=== PATIENT | male | born 1945 | race Caucasian/White ===

== ENCOUNTER 2016-07-21 09:44 | Inpatient (IN) | payer MEDICARE ==
[~2016-07-21] VITALS: Ht 182.9 cm; Wt 70.5 kg
[2016-07-21 09:51] VITALS: BP 148/98; PULSE 104; RESP 20; TEMP 97.8; O2SAT 98
[2016-07-21] MEDS ORDERED: SODIUM CHLOR 0.9% 1000 ML INJ 1,000 ML IV ONE (10:15)
[2016-07-21 10:22] LABS: AUTOMATED NEUTROPHIL # 7.5 TH/MM3 (1.8-7.7); BASOPHIL % 0.5 % (0.0-2.0); EOSINOPHIL % 0.3 % (0.0-4.0); HEMATOCRIT 42.4 % (39.0-51.0); HEMO FLAGS DIFF FINAL; LYMPH % 13.7 % (9.0-44.0); LYMPHOCYTE # 1.3 TH/MM3 (1.0-4.8); MEAN CELL VOLUME 87.5 FL (80.0-100.0); MEAN CORPUSCULAR HEMOGLOBIN 28.9 PG (27.0-34.0); MONO % 5.8 % (0.0-8.0); NEUT % 79.7 % (16.0-70.0); PLATELET COUNT 339 TH/MM3 (150-450); RED BLOOD COUNT 4.85 MIL/MM3 (4.50-5.90); RED CELL DISTRIBUTION WIDTH 14.2 % (11.6-17.2); WHITE BLOOD COUNT 9.4 TH/MM3 (4.0-11.0)
--- NOTE | 2016-07-21 10:22 | PD ---
HPI Chief Complaint: Respiratory Distress Time Seen by Provider: 10:02 Travel History International Travel<30 days: No Contact w/Intl Traveler<30days: No Traveled to known affect area: No History of Present Illness HPI 71-year-old man, history of active IV drug use with IV methamphetamine, presents to the emergency department complaining of shortness of breath for the past 5 days, intermittent stabbing chest pain, as well as feeling poorly. States he feels exhausted, sleeping all the time. Denies any fevers but states he has had chills as well as night sweats. Patient has a history of high blood pressure, antiphospholipid antibody syndrome, diabetes. He had a normal treadmill stress test July of this past year. He was admitted for bacteremia and chest pain in May 2015 found to be related to infected hardware in his back which was removed. No history of endocarditis that he knows of. He does have multiple small wounds in his skin that have been draining. This is a common problem for him. History Past Medical History Narrative Medical Hypertension Diabetes, patient states resolved after weight loss however his A1c was 9.May Antiphospholipid antibody syndrome Polysubstance abuse, active IV drug use Tetanus Vaccination: < 5 Years PNEUMOCCOCAL Vaccine (Year): 2007 Social History Alcohol Use: Yes (NOT OFTEN) Tobacco Use: No Allergies-Medications (Allergen,Severity, Reaction): Coded Allergies: Morphine (Verified Allergy, Severe, Itching, 07/21/16) Reported Meds & Prescriptions Reported Meds & Active Scripts Active No Active Prescriptions or Reported Medications Review of Systems Except as stated in HPI: all other systems reviewed are Neg Physical Exam Narrative GENERAL: 71 year-old man, generally well-appearing. No acute distress. SKIN: Warm and dry. Possibly little bit pale. Scattered areas of abscess and drainage, including the left wrist which is draining, and the right forearm which is not. HEAD: Atraumatic. Normocephalic. EYES: Pupils equal and round. No scleral icterus. No injection or drainage. ENT: No nasal bleeding or discharge. Mucous membranes pink and moist. NECK: Trachea midline. No JVD. CARDIOVASCULAR: Regular rate and rhythm. No hearing murmur. RESPIRATORY: No accessory muscle use. Clear to auscultation. Breath sounds equal bilaterally. GASTROINTESTINAL: Abdomen soft, non-tender, nondistended. Hepatic and splenic margins not palpable. MUSCULOSKELETAL: No obvious deformities. No edema. NEUROLOGICAL: Awake and alert. No obvious cranial nerve deficits. Motor grossly within normal limits. Normal speech. PSYCHIATRIC: Appropriate mood and affect; insight and judgment normal. Data Data Last Documented VS Vital Signs Date Time Temp Pulse Resp B/P Pulse Ox O2 Delivery O2 Flow Rate FiO2 07/21/16 10:26 98 07/21/16 10:26 Room Air 07/21/16 09:51 97.8 104 20 148/98 Orders Electrocardiogram (07/21/16 10:02) Complete Blood Count With Diff (07/21/16 10:02) Comprehensive Metabolic Panel (07/21/16 10:02) Prothrombin Time / Inr (Pt) (07/21/16 10:02) Act Partial Throm Time (Ptt) (07/21/16 10:02) Lactic Acid Sepsis Protocol (07/21/16 10:02) Magnesium (Mg) (07/21/16 10:02) Lipase (07/21/16 10:02) Troponin I (07/21/16 10:02) Urinalysis - C+S If Indicated (07/21/16 10:02) Blood Culture (07/21/16 10:02) Chest, Single Ap (07/21/16 10:02) Blood Glucose (07/21/16 10:02) Ecg Monitoring (07/21/16 10:02) Iv Access Insert/Monitor (07/21/16 10:02) Oximetry (07/21/16 10:02) Oxygen Administration (07/21/16 10:02) Sodium Chlor 0.9% 1000 Ml Inj (Ns 1000 M (07/21/16 10:15) Westergren Sedimentation Rate (07/21/16 10:19) C-Reactive Protein (Crp) (07/21/16 10:19) Ct Pulmonary Angiogram (07/21/16 ) Iohexol 350 Inj (Omnipaque 350 Inj) (07/21/16 11:10) Admit Order (Ed Use Only) (07/21/16 ) Labs Laboratory Tests Test 07/21/16 07/21/16 10:10 10:35 White Blood Count 9.4 TH/MM3 Red Blood Count 4.85 MIL/MM3 Hemoglobin 14.0 GM/DL Hematocrit 42.4 % Mean Corpuscular Volume 87.5 FL Mean Corpuscular Hemoglobin 28.9 PG Mean Corpuscular Hemoglobin 33.0 % Concent Red Cell Distribution Width 14.2 % Platelet Count 339 TH/MM3 Mean Platelet Volume 8.4 FL Neutrophils (%) (Auto) 79.7 % Lymphocytes (%) (Auto) 13.7 % Monocytes (%) (Auto) 5.8 % Eosinophils (%) (Auto) 0.3 % Basophils (%) (Auto) 0.5 % Neutrophils # (Auto) 7.5 TH/MM3 Lymphocytes # (Auto) 1.3 TH/MM3 Monocytes # (Auto) 0.5 TH/MM3 Eosinophils # (Auto) 0.0 TH/MM3 Basophils # (Auto) 0.0 TH/MM3 CBC Comment DIFF FINAL Differential Comment Erythrocyte Sedimentation Rate 6 mm/hr Sodium Level 135 MEQ/L Potassium Level 4.7 MEQ/L Chloride Level 99 MEQ/L Carbon Dioxide Level 26.9 MEQ/L Anion Gap 9 MEQ/L Blood Urea Nitrogen 18 MG/DL Creatinine 1.11 MG/DL Estimat Glomerular Filtration 66 ML/MIN Rate Random Glucose 200 MG/DL Lactic Acid Level 2.4 mmol/L Calcium Level 8.8 MG/DL Magnesium Level 1.7 MG/DL Total Bilirubin 0.9 MG/DL Aspartate Amino Transf 203 U/L (AST/SGOT) Alanine Aminotransferase 136 U/L (ALT/SGPT) Alkaline Phosphatase 192 U/L Troponin I 0.21 NG/ML C-Reactive Protein 2.60 MG/DL Total Protein 6.7 GM/DL Albumin 3.1 GM/DL Lipase 94 U/L Prothrombin Time 15.4 SEC Prothromb Time International 1.4 RATIO Ratio Activated Partial 29.5 SEC Thromboplast Time MDM Medical Decision Making Medical Screen Exam Complete: Yes Emergency Medical Condition: Yes Interpretation(s) My review of EKG: Sinus tachycardia rate of 102, left axis deviation, large voltage in the precordial leads anteriorly, T-wave flattening in the lateral leads, no definite evidence of acute ischemia. LABS: CBC unremarkable Sedimentation rate 6 CMP remarkable for elevated AST ALT alkaline phosphatase Troponin 0.21 Lactate 2.4 CRP 2.6 Lipase unremarkable Chest x-ray: Some focal interstitial markings in the right lower lung. A confluent infiltrate. CT pulmonary angiogram: Negative for PE Differential Diagnosis Endocarditis, ACS, PE, dissection, other Narrative Course Medical decision making INITIAL: 71 year-old man, multiple medical problems, active IV drug use and methamphetamine, presents with chest pain and shortness of breath. Wide differential diagnosis. Some night sweats that could suggest occult infection. Culture sent, inflammatory markers sent. Recent negative exercise stress test in the past year. High risk for CAD, dissection. We'll put a history of antiphospholipid antibody syndrome that could predispose to PE. We'll start with labs x-rays cultures IV fluids and reassess. Possible CT for pulmonary angiogram. Likely admission. Procedures Procedure Narrative Peripheral IV: Nursing staff was unable to establish peripheral IV. 20-gauge left EJ was placed by myself at the bedside. Patient tolerated well. Diagnosis Primary Impression: Atypical chest pain Admitting Information Admitting Physician Requests: Admit Scripts No Active Prescriptions or Reported Meds Anthony Cardozo MD Jul 21, 2016 10:22
[2016-07-21 10:26] VITALS: O2SAT 98
[2016-07-21 10:39] LABS: ALT (GPT) 136 U/L (12-78); ANION GAP 9 MEQ/L (5-15); AST (GOT) 203 U/L (15-37); BICARBONATE 26.9 MEQ/L (21.0-32.0); CHLORIDE 99 MEQ/L (98-107); GLOMERULAR FILTRATION RATE 66 ML/MIN (>89); MAGNESIUM 1.7 MG/DL (1.5-2.5); POTASSIUM 4.7 MEQ/L (3.5-5.1); SODIUM (NA) 135 MEQ/L (136-145)
[2016-07-21 10:43] LABS: ALKALINE PHOSPHATASE 192 U/L (45-117); BLOOD UREA NITROGEN 18 MG/DL (7-18); TOTAL BILIRUBIN ADULT 0.9 MG/DL (0.2-1.0)
--- NOTE | 2016-07-21 10:43 | RADRPT ---
EXAM DATE/TIME: 07/21/2016 10:01 [facility] COMPARISON: CHEST SINGLE AP, July 28, 2015, 15:32. INDICATIONS : Short of breath. MEDICAL HISTORY : None. SURGICAL HISTORY : None. ENCOUNTER: Initial ACUITY: 1 day PAIN SCORE: 0/10 LOCATION: Bilateral chest FINDINGS: A single view of the chest demonstrates blunting of the costophrenic angles bilaterally, right worse than left. There is slight increased interstitial markings in the right lower lung field suggesting s ome degree of vascular congestion or volume overload. Heart size is borderline. There is a dextroscol iosis of the thoracolumbar spine with associated degenerative changes. Osseous structures are otherwi se intact. CONCLUSION: 1. Blunting of both costophrenic angles, right greater than left suggesting some degree of effusion. 2. In addition, there is some focal increased interstitial markings in the right lower lung field sug gesting some asymmetric vascular congestion or volume overload. No confluent infiltrate. 3. Dextroscoliosis of the thoracolumbar spine with associated degenerative changes Nikos Kaur MD Board Certified Radiologist. This report was verified electronically.
[2016-07-21 10:55] LABS: APTT (PATIENT) 29.5 SEC (24.3-30.1); INTERNATIONAL NORMALIZED RATIO 1.4 RATIO; PROTHROMBIN TIME - PATIENT 15.4 SEC (9.8-11.6)
[2016-07-21] MEDS ORDERED: IOHEXOL 350 MG/ML 10 ML VIAL (for RAD DIAG) IV ONE (11:10)
--- NOTE | 2016-07-21 11:23 | RADRPT ---
EXAM DATE/TIME: 07/21/2016 11:06 [facility] COMPARISON: No previous studies available for comparison. INDICATIONS : Short of breath x 5 days. IV CONTRAST: 75 cc Omnipaque 350 (iohexol) IV RADIATION DOSE: 23.26 CTDIvol (mGy) MEDICAL HISTORY : Cerebrovascular disease. Hypertension. SURGICAL HISTORY : Appendectomy. Cholecystectomy. ENCOUNTER: Initial ACUITY: 4 - 6 days PAIN SCALE: 4/10 LOCATION: Bilateral chest TECHNIQUE: Volumetric scanning of the chest was performed using a pulmonary embolism protocol MIP images were re constructed. Using automated exposure control and adjustment of the mA and/or kV according to patien t size, radiation dose was kept as low as reasonably achievable to obtain optimal diagnostic quality images. FINDINGS: Examination of the pulmonary vasculature demonstrates good filling of the main, lobar and segmental b ranches. There are no filling defects to suggest pulmonary embolism. Multiplanar reconstructions are also unremarkable. Moderate size bilateral pleural effusions are present left greater than right. There is subsegmental atelectasis in the left base. No pulmonary nodules are identified. Examination of the mediastinum demonstrates no abnormally enlarged lymph nodes by CT criteria. No axi llary or hilar abnormalities are identified. Coronary artery calcifications are present. The visualiz ed upper abdomen demonstrates no abnormality. CONCLUSION: 1. No evidence of pulmonary embolism. 2. Bilateral effusions and left basilar atelectasis Amos Toledo MD on July 21, 2016 at 11:18 Board Certified Radiologist. This report was verified electronically.
--- NOTE | 2016-07-21 11:48 | HHI.HP ---
HPI Service Family Medicine Primary Care Physician No Primary Care Physician Admission Diagnosis chest pain, rule out ACS, rule out endocarditis Diagnoses: International Travel<30 Days: No Contact w/Intl Traveler<30days: No Known Affected Area: No History of Present Illness Pt is a 71-year-old male with a PMH significant for IV drug use. He also reports a history of HLD, HTN, DM that has completely resolved since he loss 100 pounds and has been doing IV drugs. Presented today because of gradually worsening SOB 1 week. The shortness of breath is associated with chest pain that is epigastric and last from seconds to minutes. Both SOB and chest pain occur with exertion but also occurs when at rest. No specific alleviating factors. Chest pain is localized and does not radiate to neck or arm. Described as a stabbing pain. Also endorses fatigue, malaise, decreased appetite, night sweats. Denies a change in weight. Episodes of shortness of breath and chest pain are associated with diaphoresis and nausea but with no vomiting. He has also been having a cough for the last week that is nonproductive and without blood. Denies abdominal pain, dysuria, fevers, worsening back pain. Denies sick contacts or new foods. Does endorse right forearm and left wrist erythema that has improved with draining. Review of Systems Constitutional: COMPLAINS OF: Diaphoretic episodes, Fatigue, Chills, Night Sweats, DENIES: Fever, Weight loss, Change in appetite Eyes: DENIES: Eye inflammation, Vision loss Ears, nose, mouth, throat: DENIES: Running Nose Respiratory: COMPLAINS OF: Cough, Shortness of breath, DENIES: Hemoptysis, Sputum production Cardiovascular: COMPLAINS OF: Chest pain, DENIES: Palpitations, Lower Extremity Edema Gastrointestinal: COMPLAINS OF: Nausea, DENIES: Abdominal pain, Vomiting Genitourinary: DENIES: Dysuria Musculoskeletal: COMPLAINS OF: Back pain Integumentary: COMPLAINS OF: Rash Neurologic: DENIES: Localized weakness, Tremor Past Family Social History Past Medical History IV drug abuse Bacteremia secondary to abscess of the spine. hypertension-resolved after wt loss Hyperlipidemia-resolved after wt loss Diabetes-resolved after wt loss Antiphospholipid antibody syndrome-use to be on warfarin, stopped 6-7yrs TIA Collapsed lung Past Surgical History 1. Patient had hardware removed from his back in May 2015 secondary to infection. 2. Appendectomy. 3. Cholecystectomy 4. Numerous back surgeries Reported Medications Reported Meds & Active Scripts Active No Active Prescriptions or Reported Medications Allergies: Coded Allergies: Morphine (Verified Allergy, Severe, Itching, 07/21/16) Family History Father: , [place] Mother: CHF Social History [facility] alone [facility] Tobacco: quit 30yrs ago Alcohol: quit >20yrs ago Illicit: IV drug use of methamphetamines, cocaine, Dilaudid. Marijuana Physical Exam Vital Signs Vital Signs Date Time Temp Pulse Resp B/P Pulse Ox O2 Delivery O2 Flow Rate FiO2 07/21/16 10:26 98 07/21/16 10:26 98 Room Air 07/21/16 09:51 97.8 104 20 148/98 98 Physical Exam GENERAL: This is a thin male, in no apparent distress. SKIN: 2 erythematous papules. One on the left wrist and the other on the right upper forearm. Without drainage. Nontender with slight induration. EYES: Pupils equal round and reactive. Extraocular motions intact. No scleral icterus. No injection or drainage. ENT: Nose without bleeding, purulent drainage. Throat without erythema, tonsillar hypertrophy or exudate. Uvula midline. Airway patent. NECK:No lymphadenopathy. CARDIOVASCULAR: Regular rate and rhythm without murmurs, gallops, or rubs. RESPIRATORY: Good air movement bilaterally. Coarse breath sounds bilaterally but without obvious wheezes. GASTROINTESTINAL: Abdomen soft, non-tender, nondistended. No hepato-splenomegaly , or palpable masses. No guarding. MUSCULOSKELETAL: Extremities without clubbing, cyanosis, or edema. No calf tenderness. NEUROLOGICAL: Awake and alert. Motor and sensory grossly within normal limits. Normal speech. Laboratory Laboratory Tests Test 07/21/16 07/21/16 10:10 10:35 White Blood Count 9.4 Red Blood Count 4.85 Hemoglobin 14.0 Hematocrit 42.4 Mean Corpuscular Volume 87.5 Mean Corpuscular Hemoglobin 28.9 Mean Corpuscular Hemoglobin 33.0 Concent Red Cell Distribution Width 14.2 Platelet Count 339 Mean Platelet Volume 8.4 Neutrophils (%) (Auto) 79.7 Lymphocytes (%) (Auto) 13.7 Monocytes (%) (Auto) 5.8 Eosinophils (%) (Auto) 0.3 Basophils (%) (Auto) 0.5 Neutrophils # (Auto) 7.5 Lymphocytes # (Auto) 1.3 Monocytes # (Auto) 0.5 Eosinophils # (Auto) 0.0 Basophils # (Auto) 0.0 CBC Comment DIFF FINAL Differential Comment Erythrocyte Sedimentation Rate 6 Sodium Level 135 Potassium Level 4.7 Chloride Level 99 Carbon Dioxide Level 26.9 Anion Gap 9 Blood Urea Nitrogen 18 Creatinine 1.11 Estimat Glomerular Filtration 66 Rate Random Glucose 200 Lactic Acid Level 2.4 Calcium Level 8.8 Magnesium Level 1.7 Total Bilirubin 0.9 Aspartate Amino Transf 203 (AST/SGOT) Alanine Aminotransferase 136 (ALT/SGPT) Alkaline Phosphatase 192 Troponin I 0.21 C-Reactive Protein 2.60 Total Protein 6.7 Albumin 3.1 Lipase 94 Prothrombin Time 15.4 Prothromb Time International 1.4 Ratio Activated Partial 29.5 Thromboplast Time Date/Time Procedure Status Source Growth 07/21/16 10:25 Aerobic Blood Culture Received Blood Peripheral Pending 07/21/16 10:25 Anaerobic Blood Culture Received Blood Peripheral Pending Result Diagram: 07/21/16 1010 07/21/16 1010 Assessment and Plan Assessment and Plan 71yo male with PMH significant for IV drug use. Admitted for generalized malaise and endocarditis evaluation. Code Status full Discussed Condition With dw Dr. Loaiza and Dr. Cameron Problem List: (1) Chest pain Status: Acute Plan: Progressive worsening of chest pain or shortness of breath over the last week. Chest pain localized in his epigastrium. No specific triggers or alleviating factors. Etiology unclear but low suspicion for myocardial. May be due to CHF, diastolic dysfunction vs occult infection -Pt remains tachycardic and lactic acid elevated at 2.4 -ACS evaluation negative -Echo from 09/18: EF of 55-60% -BNP elevated at 1916 -cardiac telemetry ordered Imaging: * CXR: Blunting of both costophrenic angles with some degree of effusion. Some focal increased interstitial markings the right lower lung suggesting some asymmetric basilar congestion or volume overload. No confluent infiltrate. * CTA: No evidence of PE. Bilateral effusions left basilar atelectasis. Medications: * Lasix 40 IV daily * KCL 20mg daily * aspirin 81mg daily (2) Malaise and fatigue Status: Acute Plan: Symptoms of malaise and fatigue can be due to a number of things as patient is homeless and does IV drugs. Etiologies include infectious vs diabetes vs CHF -Patient agreed to testing of hepatitis and HIV status, results pending -ESR negative at 6 -Newly elevated liver enzymes at 203/136 respectively (3) UTI (urinary tract infection) Status: Acute Plan: UA positive for nitrites and large leukocyte esterase. -Treat empirically with Rocephin (07/21- (4) DM (diabetes mellitus) Status: Acute Plan: Patient claims his diabetes has completely resolved with diet but this may not be the case as indicated by random glucose of 200. Patient requiring high levels of supplemental insulin. -Blood glucose ranging 200-300s -Consider adding long-acting insulin (5) Polysubstance abuse Status: Chronic Plan: Patient admits to marijuana, Dilaudid, cocaine, methamphetamine drug use. UDS positive for cocaine and methamphetamine -High risk for bacteremia and endocarditis however patient has no leukocytosis, elevated ESR, or fever. Suspicion for infection is low to moderate at this time. -Repeat echo canceled at this time. Will be ordered if suspicion for endocarditis increases. (6) Nutrition, metabolism, and development symptoms Status: Acute Plan: Diet: Diabetic Fluids: None Electrolytes: Moderate hyponatremia, continue to monitor DVT prophylaxis: Lovenox GI prophylaxis: Not indicated Problem Qualifiers (1) DM (diabetes mellitus): Qualified Code: E11.9 - Type 2 diabetes mellitus without complication, without long-term current use of insulin Kelsi Santiago MD R2 Jul 21, 2016 11:48
[2016-07-21 12:14] LABS: LACTIC ACID GHOST NOT REPORTABLE
[2016-07-21] MEDS ORDERED: GLUCAGON 1 MG/ML VIAL OTHER PRN (12:30)
[2016-07-21] MEDS ORDERED: ONDANSETRON HCL 4 MG/2 ML VIAL IVP PRN (12:30)
[2016-07-21] MEDS ORDERED: DEXTROSE 50% IN WATER 50 ML VIAL(D50) IV PUSH PRN (12:30)
[2016-07-21] MEDS ORDERED: NALOXONE HCL 0.4 MG/ML AMP IV PRN (12:30)
[2016-07-21] MEDS ORDERED: ENALAPRILAT 1.25 MG/ML VIAL IV PRN (12:30)
[2016-07-21 12:40] VITALS: O2SAT 98
[2016-07-21] MEDS ORDERED: SODIUM CHLOR 0.9% 1000 ML INJ 1,000 ML IV SCH (13:30)
[2016-07-21] MEDS: ENOXAPARIN SODIUM 40 MG/0.4 ML SYRINGE SQ SCH (13:34)
[2016-07-21 13:35] VITALS: BP 133/83; PULSE 108; RESP 16; O2SAT 97
[2016-07-21 13:46] LABS: BACTERIA, URINE MOD /hpf; BLOOD, URINE MOD (NEG); COMMENT (UR) CULTURE INDICATED; CULTURE IF INDICATED CULTURE INDICATED; GLUCOSE,URINE NEG (NEG); HYALINE CAST, URINE 21 /lpf (RARE); KETONE, URINE TRACE mg/dL (NEG); NITRITE,URINE POS (NEG); URINE COLOR YELLOW (YELLW/STRAW)
[2016-07-21 14:02] LABS: AMPHETAMINE, URINE POS (NEG); BARBITURATES, URINE NEG (NEG); COCAINE, URINE POS (NEG)
[2016-07-21] MEDS: INSULIN ASPART SUPPLEMENTAL SCALE SQ SCH ×2 (15:47→21:00)
[2016-07-21 16:00] VITALS: BP 138/92; PULSE 107; RESP 16; TEMP 97.5; O2SAT 94
[2016-07-21] MEDS ORDERED: cefTRIAXone INJ 1,000 MG in SODIUM CHLORIDE 0.9% INJ 100 ML IV SCH (16:00)
--- NOTE | 2016-07-21 19:18 | EKG ---
Date Performed: 07/21/2016 Time Performed: 10:05:50 PTAGE: 71 years EKG: SINUS TACHYCARDIA POSSIBLE LEFT ATRIAL ENLARGEMENT MARKED LEFT AXIS DEVIATION NONSPECIFIC T -WAVE ABNORMALITY ABNORMAL ECG PREVIOUS TRACING : 09/13/2015 19.47 DOCTOR: Juarez Ragland Interpretating Date/Time 07/21/2016 19:16:20
[2016-07-21 20:00] VITALS: BP 131/85; PULSE 120; RESP 20; TEMP 98.4; O2SAT 100
--- NOTE | 2016-07-21 20:33 | HHI.FPPN ---
Subjective Remarks Attending note: Pleasant 71-year-old gentleman admitted with one-week history of increasing shortness of breath and chest pain. Patient has a complex medical history and is notable for hypertension, hyperlipidemia and diabetes mellitus. Also, of note is the admitted history of IV drug use most recently methamphetamine and cocaine. Shortness of breath is variably described , associated with a dry cough at times, certainly exertional. Chest pain is variable, occasionally sharp, may last from seconds to minutes. Patient presented with an unremarkable EKG, troponins were minimally elevated. Previous history of a positive lupus anticoagulant, review of the hematology consultation suggest that his most at risk time was back in the when he had a series of strokes and was using drugs heavily. Also has history in May 2015 of having instrumentation removed from the lumbar spine which had become infected. Was on antibiotics for 3 months. Objective Vitals Vital Signs Date Time Temp Pulse Resp B/P Pulse Ox O2 Delivery O2 Flow Rate FiO2 07/21/16 16:00 97.5 107 16 138/92 94 07/21/16 13:35 108 16 133/83 97 Room Air 07/21/16 12:40 98 21 07/21/16 10:26 98 07/21/16 10:26 98 Room Air 07/21/16 09:51 97.8 104 20 148/98 98 Result Diagram: 07/21/16 1010 07/21/16 1010 Objective Remarks Vital signs noted. Afebrile. Gen. appearance gentleman, thin habitus, ambulatory independently, doesn' t conversation, direct eye contact. HEENT: Nonlocalizing. Lungs: Diminished clear breath sounds, possibly more diminished on the right base Cardiac: Tachycardia, no S3, soft systolic murmur left sternal border. Abdomen: Soft and benign, active bowel sounds, no organomegaly, no tenderness. Extremities: Warm and dry, intact pedal pulses, no ankle edema. Skin: Multiple areas on the forearm left greater than right of erythematous raised areas consistent with abscesses (patient admits that these could be from needle entries) A/P Assessment and Plan Clinical assessment: Patient was seen and examined. Case to be discussed and reviewed with the resident team. Agree with plan of care as discussed with me and documented in the resident note currently. Atypical chest pain Associated shortness of breath History of IV drug use Diabetes mellitus Hypertension Hyperlipidemia Positive lupus anticoagulant with history of multiple strokes in the Abnormal urinalysis with pyuria and hematuria Abnormal LFTs Neil Loaiza MD Jul 21, 2016 20:33
[2016-07-21] MEDS: SODIUM CHLORIDE 0.9% FLUSH 5 ML FLUSH FLUSH SCH (22:29)
[2016-07-22] VITALS (9 sets, daily range): BP systolic 126–150; BP diastolic 72–120; PULSE 85–113; RESP 18–24; TEMP 97.5–98.5; O2SAT 95–100
[2016-07-22] MEDS: INSULIN ASPART SUPPLEMENTAL SCALE SQ SCH ×4 (05:39→19:57)
[2016-07-22 06:10] LABS: AUTOMATED NEUTROPHIL # 6.6 TH/MM3 (1.8-7.7); BASOPHIL % 0.5 % (0.0-2.0); EOSINOPHIL # 0.1 TH/MM3 (0-0.4); EOSINOPHIL % 0.6 % (0.0-4.0); HEMATOCRIT 46.5 % (39.0-51.0); HEMO FLAGS DIFF FINAL; LYMPH % 19.8 % (9.0-44.0); LYMPHOCYTE # 1.8 TH/MM3 (1.0-4.8); MEAN CELL VOLUME 88.3 FL (80.0-100.0); MEAN CORPUSCULAR HEMOGLOBIN 28.5 PG (27.0-34.0); MEAN CORPUSCULAR HGB CONC 32.3 % (32.0-36.0); MONO % 7.1 % (0.0-8.0); PLATELET COUNT 373 TH/MM3 (150-450); RED BLOOD COUNT 5.27 MIL/MM3 (4.50-5.90); RED CELL DISTRIBUTION WIDTH 14.2 % (11.6-17.2); WHITE BLOOD COUNT 9.2 TH/MM3 (4.0-11.0)
[2016-07-22 06:39] LABS: ALKALINE PHOSPHATASE 243 U/L (45-117); ALT (GPT) 202 U/L (12-78); ANION GAP 11 MEQ/L (5-15); AST (GOT) 293 U/L (15-37); BICARBONATE 27.2 MEQ/L (21.0-32.0); BLOOD UREA NITROGEN 19 MG/DL (7-18); CHLORIDE 96 MEQ/L (98-107); GLOMERULAR FILTRATION RATE 61 ML/MIN (>89); POTASSIUM 4.2 MEQ/L (3.5-5.1); SODIUM (NA) 134 MEQ/L (136-145); TOTAL BILIRUBIN ADULT 0.7 MG/DL (0.2-1.0)
[2016-07-22] MEDS: FUROSEMIDE 40 MG/4 ML VIAL IV PUSH SCH (08:09)
[2016-07-22] MEDS: POTASSIUM CHLORIDE 20 MEQ CONTROLLED RELEASE TAB PO SCH (08:09)
[2016-07-22] MEDS: SODIUM CHLORIDE 0.9% FLUSH 5 ML FLUSH FLUSH SCH ×2 (08:09→19:57)
[2016-07-22] MEDS: ASPIRIN EC 81 MG TABEC PO SCH (08:09)
[2016-07-22] MEDS ORDERED: PNEUMOCOCCAL POLYVALENT INJ 25 MCG/0.5 ML SYR IM ONE (10:00)
[2016-07-22] MEDS ORDERED: INFLUENZA VIRUS VACCINE (QUADRIVALENT) 0.5 ML SYR IM ONE (10:00)
[2016-07-22] MEDS ORDERED: BACT800T5 PO (10:42)
--- NOTE | 2016-07-22 10:43 | HHI.DCPOC ---
Discharge Care Plan Diagnosis: (1) Hyperlipidemia (2) DM (diabetes mellitus) (3) Cellulitis (4) UTI (urinary tract infection) Additional Problems 07/23/16 Attending note. Amended that patient's discharge date is still pending. Neil Loaiza MD Goals to Promote Your Health * To prevent worsening of your condition and complications * To maintain your health at the optimal level Directions to Meet Your Goals Take your medications as prescribed Follow your dietary instruction Follow activity as directed Keep your appointments as scheduled Take your immunizations and boosters as scheduled If your symptoms worsen call your PCP, if no PCP go to Urgent Care Center or Emergency Room Smoking is Dangerous to Your Health. Avoid second hand smoke Call the 24-hour hour crisis hotline for domestic abuse at Julieth Lacey MD R3 Jul 22, 2016 10:42 Neil Loaiza MD Jul 23, 2016 11:03
[2016-07-22] MEDS ORDERED: SULFAMETHOXAZOLE-TRIMETHOPRIM DS 800-160 MG TAB PO SCH (10:45)
--- NOTE | 2016-07-22 10:54 | EKG ---
Date Performed: 07/21/2016 Time Performed: 21:54:28 PTAGE: 71 years EKG: SINUS TACHYCARDIA MARKED LEFT AXIS DEVIATION NONSPECIFIC T-WAVE ABNORMALITY ABNORMAL ECG Co mpared to prior tracing no significant change PREVIOUS TRACING : 07/21/2016 18.49 DOCTOR: Tung Baires Interpretating Date/Time 07/22/2016 10:48:37
--- NOTE | 2016-07-22 10:54 | EKG ---
Date Performed: 07/21/2016 Time Performed: 18:49:00 PTAGE: 71 years EKG: SINUS TACHYCARDIA MARKED LEFT AXIS DEVIATION NONSPECIFIC T-WAVE ABNORMALITY ABNORMAL ECG Co mpared to prior tracing no significant change PREVIOUS TRACING : 07/21/2016 10.05 DOCTOR: Tung Baires Interpretating Date/Time 07/22/2016 10:48:24
[2016-07-22] MEDS: ENOXAPARIN SODIUM 40 MG/0.4 ML SYRINGE SQ SCH (12:12)
[2016-07-22] MEDS: IBUPROFEN 600 MG TAB PO PRN ×3 (12:13→22:07)
--- NOTE | 2016-07-22 14:36 | HHI.FPPN ---
Subjective Remarks No events overnight. Afebrile, vitals are stable. Patient reports generalized pain and malaise this morning. States he has pleuritic chest pain occurring intermittently and mostly when taking many deep breaths in a row. States he had chills and night sweats and states this is baseline for him. (Marcos Cameron MD R1) Objective Vitals Vital Signs Date Time Temp Pulse Resp B/P Pulse Ox O2 Delivery O2 Flow Rate FiO2 07/22/16 12:00 97.6 104 24 150/120 97 07/22/16 08:17 100 Nasal Cannula 2.00 07/22/16 08:00 98.0 109 18 146/102 97 07/22/16 04:20 108 07/22/16 04:00 97.7 109 20 144/97 98 07/22/16 00:00 97.5 113 20 141/90 99 07/21/16 20:00 98.4 120 20 131/85 100 07/21/16 16:00 97.5 107 16 138/92 94 I/O 07/21/16 07/21/16 07/21/16 07/22/16 07/22/16 07/22/16 07:00 15:00 23:00 07:00 15:00 23:00 Intake Total 360 ml 240 ml Output Total 350 ml 350 ml Balance 10 ml -110 ml Intake Oral 360 ml 240 ml Output Urine Total 350 ml 350 ml # Bowel Movements 0 0 (Marcos Cameron MD R1) Result Diagram: 07/22/16 0533 07/22/16 0533 Objective Remarks GENERAL: Thin male, NAD SKIN: 2 erythematous papules. One on the left wrist and the other on the right upper forearm. Without drainage. Nontender with slight induration. EYES: Extraocular motions intact. No scleral icterus. No injection or drainage. ENT: Nose without bleeding, purulent drainage. Throat without erythema, tonsillar hypertrophy or exudate. Airway patent. NECK: No lymphadenopathy. CARDIOVASCULAR: Regular rate and rhythm without murmurs, gallops, or rubs. RESPIRATORY: Good air movement bilaterally. Coarse breath sounds bilaterally but without obvious wheezes. GASTROINTESTINAL: Abdomen soft, non-tender, nondistended. No hepato-splenomegaly , or palpable masses. No guarding. MUSCULOSKELETAL: Extremities without clubbing, cyanosis, or edema. No calf tenderness. NEUROLOGICAL: Awake and alert. Motor and sensory grossly within normal limits. Normal speech. (Marcos Cameron MD R1) A/P Assessment and Plan 71yo male with PMH significant for IV drug use. Admitted for generalized malaise and endocarditis evaluation. (Marcos Cameron MD R1) Assessment and Plan Attending note patient was seen and examined. Case reviewed and discussed with resident team. Agree with plan of care is discussed with me and documented in the resident note. Attending note 2 patient was seen and examined with the resident team on the morning of with 2016. Case reviewed and discussed with resident team. Agree with plan of care is discussed with me and documented in the resident note. (Neil Loaiza MD) Problem List: (1) Bacteremia Status: Acute Plan: Gram-positive cocci in pairs and clusters growing in 1 of 6 vials Awaiting ID and sensitivity Will treat with Vancomycin 1 gm IV q12h pending further ID and sensitivity Consider obtaining a repeat blood culture if it remains unclear if this is a contaminant or not (2) Chest pain Status: Acute Plan: Progressive worsening of chest pain or shortness of breath over the last week. Chest pain localized in his epigastrium. No specific triggers or alleviating factors. Etiology unclear but low suspicion for myocardial. May be due to CHF, diastolic dysfunction vs occult infection -Pt remains tachycardic and lactic acid elevated at 3.1 -ACS evaluation negative -Echo from 09/18: EF of 55-60% -BNP elevated at 1916 -Cardiac telemetry ordered Imaging: * CXR: Blunting of both costophrenic angles with some degree of effusion. Some focal increased interstitial markings the right lower lung suggesting some asymmetric basilar congestion or volume overload. No confluent infiltrate. * CTA: No evidence of PE. Bilateral effusions left basilar atelectasis. Medications: * Lasix 40 IV daily * KCL 20mg daily * Aspirin 81mg daily (3) Malaise and fatigue Status: Acute Plan: Symptoms of malaise and fatigue can be due to a number of things as patient is homeless and does IV drugs. Etiologies include infectious vs diabetes vs CHF -Patient agreed to testing of hepatitis and HIV status. Hepatitis panel negative. HIV antibodies negative. -ESR normal at 6 (4) UTI (urinary tract infection) Status: Acute Plan: UA positive for nitrites and large leukocyte esterase Urine culture growing Staph Aureus > 100,000 cfus Vancomycin as above (5) DM (diabetes mellitus) Status: Acute Plan: - Continue accuchecks ACHS - Started metformin 500 mg po qhs - Low-dose ISS (6) Polysubstance abuse Status: Chronic Plan: Patient admits to marijuana, Dilaudid, cocaine, methamphetamine drug use. UDS positive for cocaine and methamphetamine - High risk for bacteremia and endocarditis however patient continues to be afebrile without leukocytosis. Suspicion for infection is low to moderate at this time. - Will order 2D ECHO if suspicion for endocarditis increases (7) Nutrition, metabolism, and development symptoms Status: Acute Plan: Diet: Diabetic Fluids: None Electrolytes: Mild hyponatremia, continue to monitor DVT prophylaxis: Lovenox GI prophylaxis: Not indicated (Marcos Cameron MD R1) Problem Qualifiers (1) DM (diabetes mellitus): Qualified Code: E11.9 - Type 2 diabetes mellitus without complication, without long-term current use of insulin Marcos Cameron MD R1 Jul 22, 2016 14:36 Neil Loaiza MD Jul 22, 2016 16:39
[2016-07-22] MEDS ORDERED: Vancomycin Consult Pharmacy 1 EA OTHER SCH (15:15)
[2016-07-22 16:11] LABS: HEMOGLOBIN A1a 0.8 %; HEMOGLOBIN A1b 0.8 %; HEMOGLOBIN F 1.3 %; HEMOGLOBIN LA1C 2.2 %; HEMOGLOBIN P3 4.6 %
[2016-07-22] MEDS: cefTRIAXone INJ 1,000 MG in SODIUM CHLORIDE 0.9% INJ 100 ML IV SCH (16:30)
[2016-07-22] MEDS: VANCOMYCIN INJ 1,250 MG in SODIUM CHLOR 0.9% 250 ML INJ 250 ML IV SCH (17:00)
[2016-07-22] MEDS ORDERED: metFORMIN HCL 500 MG TAB PO SCH (21:00)
[2016-07-23] VITALS (10 sets, daily range): BP systolic 126–154; BP diastolic 72–85; PULSE 58–110; RESP 16–20; TEMP 97–98.3; O2SAT 95–99
[2016-07-23] MEDS: IBUPROFEN 600 MG TAB PO PRN ×5 (01:29→19:49)
[2016-07-23] MEDS: INSULIN ASPART SUPPLEMENTAL SCALE SQ SCH ×4 (05:58→19:51)
[2016-07-23] MEDS: FUROSEMIDE 40 MG/4 ML VIAL IV PUSH SCH (07:29)
[2016-07-23] MEDS: ASPIRIN EC 81 MG TABEC PO SCH (07:30)
[2016-07-23] MEDS: POTASSIUM CHLORIDE 20 MEQ CONTROLLED RELEASE TAB PO SCH (07:31)
[2016-07-23] MEDS: SODIUM CHLORIDE 0.9% FLUSH 5 ML FLUSH FLUSH SCH ×2 (07:31→19:51)
[2016-07-23 08:08] LABS: AUTOMATED NEUTROPHIL # 6.2 TH/MM3 (1.8-7.7); BASOPHIL # 0.1 TH/MM3 (0-0.2); BASOPHIL % 0.7 % (0.0-2.0); EOSINOPHIL # 0.2 TH/MM3 (0-0.4); EOSINOPHIL % 2.2 % (0.0-4.0); HEMATOCRIT 44.4 % (39.0-51.0); HEMO FLAGS DIFF FINAL; LYMPH % 11.6 % (9.0-44.0); LYMPHOCYTE # 0.9 TH/MM3 (1.0-4.8); MEAN CELL VOLUME 88.5 FL (80.0-100.0); MEAN CORPUSCULAR HEMOGLOBIN 29.4 PG (27.0-34.0); MEAN CORPUSCULAR HGB CONC 33.3 % (32.0-36.0); MONO % 5.7 % (0.0-8.0); NEUT % 79.8 % (16.0-70.0); PLATELET COUNT 275 TH/MM3 (150-450); RED BLOOD COUNT 5.02 MIL/MM3 (4.50-5.90); RED CELL DISTRIBUTION WIDTH 14.9 % (11.6-17.2); WHITE BLOOD COUNT 7.8 TH/MM3 (4.0-11.0)
[2016-07-23 08:29] LABS: ANION GAP 7 MEQ/L (5-15); AST (GOT) 184 U/L (15-37); BICARBONATE 28.7 MEQ/L (21.0-32.0); BLOOD UREA NITROGEN 19 MG/DL (7-18); CHLORIDE 103 MEQ/L (98-107); GLOMERULAR FILTRATION RATE 62 ML/MIN (>89); POTASSIUM 3.9 MEQ/L (3.5-5.1); SODIUM (NA) 139 MEQ/L (136-145)
[2016-07-23 08:31] LABS: ALKALINE PHOSPHATASE 285 U/L (45-117); ALT (GPT) 183 U/L (12-78); TOTAL BILIRUBIN ADULT 0.5 MG/DL (0.2-1.0)
--- NOTE | 2016-07-23 11:52 | PD.ID.CON ---
History of Present Illness Service Infectious Disease Consult Requested By / residents, Reason for Consult Evaluation Primary Care Physician No Primary Care Physician Diagnoses: History of Present Illness is a 71-year-old male with a PMH significant for IV drug use, back surgery, MSSA hardware infection followed by hardware removal. Reports completing 6 weeks of IV at SNF in [place] in 2014. He also reports a history of HLD, HTN, DM. He reports that his DM has completely resolved since he loss 100 pounds and has been doing IV drugs. He presented to for gradually worsening SOB 1 week. The shortness of breath is associated with chest pain that is epigastric and last from seconds to minutes. Both SOB and chest pain occur with exertion but also occurs when at rest. No specific alleviating factors. Chest pain is localized and does not radiate to neck or arm. Described as a stabbing pain. Episodes of shortness of breath and chest pain are associated with diaphoresis and nausea but with no vomiting. He has also been having a cough for the last week that is nonproductive and without blood. Denies abdominal pain, dysuria, fevers, worsening back pain. Denies sick contacts or new foods. Does endorse right forearm and left wrist erythema that has improved with draining. Pertinent positives and negatives: in past. . Reported he was Citizen of year in past. After his accident he got addicted to pain meds followed by Methamphetamine. He reports incarceration/long-term for drug possession. When I confronted him about his drug addiction and offered program placement he reports he has tried and is beyond rehab. He reports he has girl friend much younger than him. He reports he buys his needles from [facility] or [facility] when he can. He admits to sharing needles with his girl friend and reports he sterilizes them with alcohol. Pt reports fatigue, malaise, decreased appetite, night sweats. ID is consulted for evaluation and Mment of possible endocarditis given MSSA in urine and IVDA. Also pt has Coag neg staph bacteremia low grade. Review of Systems Constitutional: COMPLAINS OF: Diaphoretic episodes, Fatigue, Fever, Weight loss , Chills, Night Sweats Endocrine: DENIES: Heat/cold intolerance, Polydipsia, Polyuria, Polyphagia Eyes: DENIES: Blurred vision, Diplopia, Eye inflammation, Eye pain, Vision loss , Photosensitivity, Double Vision Ears, nose, mouth, throat: DENIES: Tinnitus, Hearing loss, Vertigo, Nasal discharge, Oral lesions, Throat pain, Hoarseness, Ear Pain, Running Nose, Epistaxis, Sinus Pain, Toothache, Odynophagia Respiratory: COMPLAINS OF: Shortness of breath, DENIES: Apneas, Cough, Snoring , Wheezing, Hemoptysis, Sputum production Cardiovascular: COMPLAINS OF: Chest pain, Dyspnea on Exertion, DENIES: Palpitations, Syncope, PND, Lower Extremity Edema, Orthopnea, Claudication Gastrointestinal: DENIES: Abdominal pain, Black stools, Bloody stools, Constipation, Diarrhea, Nausea, Vomiting, Difficulty Swallowing, Anorexia Genitourinary: DENIES: Sexual dysfunction, Urinary frequency, Urinary incontinence, Urgency, Hematuria, Dysuria, Nocturia, Penile Discharge, Testicular Pain, Testicular Swelling Musculoskeletal: COMPLAINS OF: Back pain, DENIES: Joint pain, Muscle aches, Stiffness, Joint Swelling, Neck pain Integumentary: DENIES: Abnormal pigmentation, Nail changes, Pruritus, Rash Hematologic/lymphatic: DENIES: Bruising, Lymphadenopathy Immunologic/allergic: DENIES: Eczema, Urticaria Neurologic: DENIES: Abnormal gait, Headache, Localized weakness, Paresthesias, Seizures, Speech Problems, Tremor, Poor Balance Psychiatric: DENIES: Anxiety, Confusion, Mood changes, Depression, Hallucinations, Agitation, Suicidal Ideation, Homicidal Ideation, Delusions Past Family Social History Allergies: Coded Allergies: Morphine (Verified Allergy, Severe, Itching, 07/21/16) Past Medical History IV drug abuse Bacteremia secondary to abscess of the spine. hypertension-resolved after wt loss Hyperlipidemia-resolved after wt loss Diabetes-resolved after wt loss Antiphospholipid antibody syndrome-use to be on warfarin, stopped 6-7yrs TIA Collapsed lung Past Surgical History Hardware removed from his back in May 2015 secondary to MSSA hardware infection. Appendectomy. Cholecystectomy Numerous back surgeries Reported Medications Reported Meds & Active Scripts Active Bactrim DS (Sulfamethoxazole-Trimethoprim) 800-160 Mg Tab 1 Tab PO BID Active Ordered Medications Current Medications Medications (Trade) Dose Ordered Sig/Keiko Route Start Time Stop Time Status Last Admin (NS Flush) 2 ml UNSCH PRN FLUSH 07/21/16 12:30 (NS Flush) 2 ml BID FLUSH 07/21/16 21:00 07/23/16 07:31 (Zofran Inj) 4 mg Q6H PRN IVP 07/21/16 12:30 (Lovenox Inj) 40 mg Q24H SQ 07/21/16 13:00 07/23/16 12:11 (Narcan Inj) 0.4 mg UNSCH PRN IV 07/21/16 12:30 (Vasotec Inj) 1.25 mg Q6H PRN IV 07/21/16 12:30 07/22/16 12:13 (D50w (Vial) Inj) 25 ml UNSCH PRN IV PUSH 07/21/16 12:30 (Glucagon Inj) 1 mg UNSCH PRN OTHER 07/21/16 12:30 (Lasix Inj) 40 mg DAILY IV PUSH 07/22/16 09:00 07/23/16 07:29 (KCl) 20 meq DAILY PO 07/22/16 09:00 07/23/16 07:31 Aspirin 81 mg 81 mg DAILY PO 07/22/16 09:00 07/23/16 07:30 Vancomycin HCl 1250 mg/Sodium Chloride 262.5 ml @ 262.5 mls/ hr Q18H IV 07/22/16 17:00 07/23/16 12:10 (Vancomycin Consult Pharmacy) 0 ml @ 0 mls/hr UNSCH OTHER 07/22/16 15:15 Miscellaneous Information SPECIFIC LAB TO BE NEELA... ONCE ONCE XX 07/24/16 04:45 07/24/16 04:46 (Rocephin Inj/NS Inj) 100 ml @ 200 mls/hr Q24H IV 07/22/16 16:30 07/23/16 15:49 (Motrin) 600 mg Q6H PRN PO 07/23/16 01:30 07/23/16 13:30 Family History Father: , [place] Mother: CHF Social History Lives alone in [facility]. Tobacco: quit 30yrs ago Alcohol: quit >20yrs ago Illicit: IV drug use of methamphetamines, cocaine, Dilaudid. Marijuana Physical Exam Vital Signs Vital Signs Date Time Temp Pulse Resp B/P Pulse Ox O2 Delivery O2 Flow Rate FiO2 07/23/16 08:00 98.1 110 20 143/78 95 07/23/16 04:34 98.3 92 18 143/72 99 07/23/16 00:10 98.1 82 16 128/79 99 07/22/16 20:45 94 07/22/16 20:00 98.5 85 18 135/81 95 07/22/16 16:00 97.8 88 20 126/72 100 07/22/16 12:00 97.6 104 24 150/120 97 Physical Exam GENERAL: This is a well-nourished, well-developed patient, in no apparent distress. SKIN: No rashes, ecchymoses or lesions. Cool and dry. HEAD: Atraumatic. Normocephalic. No temporal or scalp tenderness. EYES: Pupils equal round and reactive. Extraocular motions intact. No scleral icterus. No injection or drainage. ENT: Nose without bleeding, purulent drainage or septal hematoma. Throat without erythema, tonsillar hypertrophy or exudate. Uvula midline. Airway patent. NECK: Trachea midline. Supple, nontender, no meningeal signs. CARDIOVASCULAR: HS audible. RESPIRATORY: Clear to auscultation. Breath sounds equal bilaterally. GASTROINTESTINAL: Abdomen soft, non-tender, nondistended. MUSCULOSKELETAL: Rt forearm with small abscess 2x2 cm with induration but no fluctuance. Left forearm at wrist level lanced indurated area(prior abscess site per patient ) NEUROLOGICAL: Awake and alert. Grossly nonfocal. Psych: cooperative IV line sites with no e/o infection. Laboratory Laboratory Tests Test 07/23/16 07:48 White Blood Count 7.8 Red Blood Count 5.02 Hemoglobin 14.8 Hematocrit 44.4 Mean Corpuscular Volume 88.5 Mean Corpuscular Hemoglobin 29.4 Mean Corpuscular Hemoglobin 33.3 Concent Red Cell Distribution Width 14.9 Platelet Count 275 Mean Platelet Volume 8.4 Neutrophils (%) (Auto) 79.8 Lymphocytes (%) (Auto) 11.6 Monocytes (%) (Auto) 5.7 Eosinophils (%) (Auto) 2.2 Basophils (%) (Auto) 0.7 Neutrophils # (Auto) 6.2 Lymphocytes # (Auto) 0.9 Monocytes # (Auto) 0.4 Eosinophils # (Auto) 0.2 Basophils # (Auto) 0.1 CBC Comment DIFF FINAL Differential Comment Sodium Level 139 Potassium Level 3.9 Chloride Level 103 Carbon Dioxide Level 28.7 Anion Gap 7 Blood Urea Nitrogen 19 Creatinine 1.17 Estimat Glomerular Filtration 62 Rate Random Glucose 117 Lactic Acid Level 2.3 Calcium Level 8.7 Total Bilirubin 0.5 Aspartate Amino Transf 184 (AST/SGOT) Alanine Aminotransferase 183 (ALT/SGPT) Alkaline Phosphatase 285 Total Protein 6.9 Albumin 2.8 Date/Time Procedure Status Source Growth 07/23/16 10:20 Gram Stain Received Wound Arm Pending 07/23/16 10:20 Wound Culture Received Wound Arm Pending 07/23/16 07:48 Aerobic Blood Culture Received Blood Peripheral Pending 07/23/16 07:48 Anaerobic Blood Culture Received Blood Peripheral Pending 07/21/16 12:49 Urine Culture - Final Complete Urine Catheterized Urine Staphylococcus Aureus 07/21/16 10:25 Aerobic Blood Culture - Preliminary Resulted Blood Peripheral Staph Sp Coagulase Negative 07/21/16 10:25 Anaerobic Blood Culture - Preliminary Resulted Blood Peripheral NO GROWTH IN 1 DAY Result Diagram: 07/23/16 0748 07/23/16 0748 Imaging Last Impressions Abdomen/Pelvis CT 07/23/16 0000 Signed Impressions: Service Date/Time: Saturday, July 23, 2016 17:42 - CONCLUSION: 1. Diverticulosis without diverticulitis. 2. Minimal ascites. 3. Dilated stomach. 4. A few punctate of second bilateral renal calculi. 5. Small bilateral pleural effusions. 6. No abscess seen. James Wyatt MD Chest X-Ray 07/21/16 1002 Signed Impressions: Service Date/Time: Thursday, July 21, 2016 10:01 - CONCLUSION: 1. Blunting of both costophrenic angles, right greater than left suggesting some degree of effusion. 2. In addition, there is some focal increased interstitial markings in the right lower lung field suggesting some asymmetric vascular congestion or volume overload. No confluent infiltrate. 3. Dextroscoliosis of the thoracolumbar spine with associated degenerative changes Nikos Kaur MD CT Angiography 07/21/16 0000 Signed Impressions: Service Date/Time: Thursday, July 21, 2016 11:06 - CONCLUSION: 1. No evidence of pulmonary embolism. 2. Bilateral effusions and left basilar atelectasis Amos Toledo MD Assessment and Plan Assessment and Plan Coag neg staph bacteremia in pt with IVDA and prior Spine Osteomyelitis. MSSA in urine: ? translocation in urine from Staph bacteremia. Possible Endocarditis and or Spinal hardware infection. Prior MSSA hardware infection s/p removal. Bilateral forearm abscess (left at wrist level, right in mid forearm) IVDA ongoing. Abnormal Liver function tests: ? sepsis vs hepatitis related. Recs Check hepatitis profile Check HIV antibody pt consented. Follow repeat blood cultures Follow cultures of abscess. Follow right forearm abscess to assess if it needs drainage. Continue Ceftriaxone IV change dose to 2 gm IV for endocarditis. Continue Vanco IV(target 15-20) No PICC till cleared by ID. D.w : social issues which affect his ongoing addiction as well as discharge planning challenges. Alina Davis MD Jul 23, 2016 11:52
--- NOTE | 2016-07-23 12:04 | HHI.FPPN ---
Subjective Remarks No acute events overnight. Vital signs unremarkable. This morning patient reports that he is feeling about the same. Continues to have this generalized malaise and decreased energy. Denies any subjective fevers but does endorse chills. Also complains of chest pain that is pleuritic in nature. Motrin does help with this pain. (Kelsi Santiago MD R2) Objective Vitals Vital Signs Date Time Temp Pulse Resp B/P Pulse Ox O2 Delivery O2 Flow Rate FiO2 07/23/16 08:00 98.1 110 20 143/78 95 07/23/16 04:34 98.3 92 18 143/72 99 07/23/16 00:10 98.1 82 16 128/79 99 07/22/16 20:45 94 07/22/16 20:00 98.5 85 18 135/81 95 07/22/16 16:00 97.8 88 20 126/72 100 07/22/16 12:00 97.6 104 24 150/120 97 I/O 07/22/16 07/22/16 07/22/16 07/23/16 07/23/16 07/23/16 07:00 15:00 23:00 07:00 15:00 23:00 Intake Total 240 ml 600 ml 320 ml 240 ml Output Total 350 ml 250 ml Balance -110 ml 350 ml 320 ml 240 ml Intake Oral 240 ml 600 ml 320 ml 240 ml Output Urine Total 350 ml 250 ml # Voids 4 2 # Bowel Movements 0 1 (Kelsi Santiago MD R2) Result Diagram: 07/23/16 0748 07/23/16 0748 Objective Remarks GEN: Thin male in no acute distress. SKIN: Worsening of left wrist abscess. No drainage present. CV: Regular rate and rhythm without obvious murmurs LUNGS: Clear to auscultation bilaterally. Normal respiratory effort. No wheezes , rales, rhonchi. EXT: No edema. No calf tenderness. NEURO/PSYCH: Awake, alert. Appropriate insight and judgment. Normal speech ( Kelsi Santiago MD R2) A/P Assessment and Plan 71yo male with PMH significant for IV drug use. Admitted for generalized malaise and endocarditis evaluation. Discharge Planning Pending ID recommendations and treatment. Time course unknown sdw Dr. Loaiza and Dr. Cameron (Kelsi Santiago MD R2) Assessment and Plan 07/23/16 Attending note: Patient seen and examined. Case reviewed and discussed with resident team. Agree with plan of care as discussed with me and documented in the resident note. (Neil Loaiza MD) Problem List: (1) Bacteremia Status: Acute Plan: 07/08 blood cultures on 07/21/16 was positive for staph sp coagulase- negative while remaining blood cultures were negative. May be due to contamination vs bacteremia -Repeat blood cultures drawn on 07/23 -I&D of left wrist abscess performed on 07/[address] Cameron * discharge was collected and sent for culture -Hepatitis and HIV negative -Repeat echo pending to evaluate for endocarditis ID: appreciate recommendations * CT abdomen ordered (2) Chest pain Status: Acute Plan: Progressive worsening of chest pain or shortness of breath over the last week with no specific triggers or alleviating factors. Symptoms continue be present but now pleuritic in nature. Etiology unclear but low suspicion for myocardial. May be due to CHF, diastolic dysfunction vs occult infection -Pt remains intermittently tachycardic but lactic acid is down trending. -ACS evaluation negative -Echo from 09/18: EF of 55-60% -BNP elevated at 1916 -Cardiac telemetry ordered Imaging: * CXR: Blunting of both costophrenic angles with some degree of effusion. Some focal increased interstitial markings the right lower lung suggesting some asymmetric basilar congestion or volume overload. No confluent infiltrate. * CTA: No evidence of PE. Bilateral effusions left basilar atelectasis. Medications: * Lasix 40 IV daily * KCL 20mg daily * Aspirin 81mg daily (3) UTI (urinary tract infection) Status: Acute Plan: Urine culture growing Staph Aureus > 100,000 cfus that is pansensitive -Vancomycin 07/22- -Rocephin continued per attending recommendations (07/21- (4) DM (diabetes mellitus) Status: Acute Plan: - Continue accuchecks ACHS, low dose sliding scale - metformin held due to CTA on 07/[address] abdomen with contrast 07/23 (5) Polysubstance abuse Status: Chronic Plan: Patient admits to marijuana, Dilaudid, cocaine, methamphetamine drug use. UDS positive for cocaine and methamphetamine - High risk for bacteremia and endocarditis however patient continues to be afebrile without leukocytosis. Suspicion for infection is low to moderate at this time. - Will order 2D ECHO if suspicion for endocarditis increases (6) Nutrition, metabolism, and development symptoms Status: Acute Plan: Diet: Diabetic Fluids: None Electrolytes: unremarkable, continue to monitor DVT prophylaxis: Lovenox GI prophylaxis: Not indicated (Kelsi Santiago MD R2) Problem Qualifiers (1) DM (diabetes mellitus): Qualified Code: E11.9 - Type 2 diabetes mellitus without complication, without long-term current use of insulin Kelsi Santiago MD R2 Jul 23, 2016 12:04 Neil Loaiza MD Jul 23, 2016 16:36 - Will order 2D ECHO if suspicion for endocarditis increases (7) Nutrition, metabolism, and development symptoms Status: Acute Plan: Diet: Diabetic Fluids: None Electrolytes: Mild hyponatremia, continue to monitor DVT prophylaxis: Lovenox GI prophylaxis: Not indicated Problem Qualifiers (1) DM (diabetes mellitus): Qualified Code: E11.9 - Type 2 diabetes mellitus without complication, without long-term current use of insulin Kelsi Santiago MD R2 Jul 23, 2016 12:04
[2016-07-23] MEDS: VANCOMYCIN INJ 1,250 MG in SODIUM CHLOR 0.9% 250 ML INJ 250 ML IV SCH (12:10)
[2016-07-23] MEDS: ENOXAPARIN SODIUM 40 MG/0.4 ML SYRINGE SQ SCH (12:11)
[2016-07-23] MEDS ORDERED: DIATRIZOATE MEGLUM/DIATRIZOATE SOD 9 ML CUP PO ONE (13:30)
[2016-07-23] MEDS: cefTRIAXone INJ 1,000 MG in SODIUM CHLORIDE 0.9% INJ 100 ML IV SCH (15:49)
--- NOTE | 2016-07-23 16:23 | EC ---
Study Study Date:07/23/2016 STUDY CONCLUSIONS SUMMARY - Left ventricle: The cavity size was normal. Wall thickness was normal. Systolic function was severely reduced. The estimated ejection fraction was in the range of 15% to 20%. Diffuse hypokinesis. - Aortic valve: Valve area: 2.2cm^2 (Vmax). - Mitral valve: Mildly calcified annulus. Mild regurgitation. - Tricuspid valve: Mild regurgitation. - Pulmonary arteries: PA peak pressure: 32mm Hg (S). If LV function is below 40, please consider prescribing an ACEI or ARB or document rationale for non-use. PROCEDURE DATA STUDY STATUS: Elective. Procedure: Transthoracic echocardiography. Image quality was good. Scanning was performed from the parasternal, apical, and subcostal acoustic windows. Study completion: The patient tolerated the procedure well. Transthoracic echocardiography. M-mode, complete 2D, complete spectral Doppler, and color Doppler. Patient status: Inpatient. CARDIAC ANATOMY LEFT VENTRICLE: The cavity size was normal. Wall thickness was normal. Systolic function was severely reduced. The estimated ejection fraction was in the range of 15% to 20%. Diffuse hypokinesis. AORTIC VALVE: Trileaflet; mildly thickened, mildly calcified leaflets. Doppler: Transvalvular velocity was within the normal range. There was no stenosis. No regurgitation. Valve area: 2.2cm^2 (Vmax). AORTA: Aortic root: The aortic root was normal in size. MITRAL VALVE: Mildly calcified annulus. Doppler: Transvalvular velocity was within the normal range. There was no evidence for stenosis. Mild regurgitation. LEFT ATRIUM: The atrium was normal in size. RIGHT VENTRICLE: The cavity size was normal. Wall thickness was normal. PULMONIC VALVE: Doppler: Transvalvular velocity was within the normal range. There was no evidence for stenosis. No regurgitation. TRICUSPID VALVE: Structurally normal valve. Doppler: Transvalvular velocity was within the normal range. Mild regurgitation. PULMONARY ARTERY: The main pulmonary artery was normal-sized. Systolic pressure was within the normal range. RIGHT ATRIUM: The atrium was normal in size. PERICARDIUM: There was no pericardial effusion. SYSTEMIC VEINS: Inferior vena cava: The vessel was normal in size. BASIC MEASUREMENTS ADULT Normal Left ventricle LV internal dimension, ED, chordal level, *55 mm 43-52 PLAX LV internal dimension, ES, chordal level, *51.9 mm 23-38 PLAX Fractional shortening, chordal level, PLAX *6 % >29 LV posterior wall thickness, ED 9.31 mm IVS/LVPW ratio, ED 0.83 <1.3 Volume, ED, MOD, 1-plane 91 ml Volume, ES, MOD, 1-plane 81 ml Ejection fraction, MOD, 1-plane 11 % Stroke volume, MOD, 1-plane 10 ml Volume, ED, MOD, 2-plane 102 ml Volume, ES, MOD, 2-plane 87 ml Ejection fraction, MOD, 2-plane 15 % Stroke volume, MOD, 2-plane 15 ml Ventricular septum Septal thickness, ED 7.73 mm Aortic valve Leaflet separation 19 mm 15-26 BASIC MEASUREMENTS ADULT Normal Aortic valve Leaflet separation 19 mm 15-26 Aorta Root diameter, ED 29 mm 20-37 Left atrium Anterior-posterior dimension, ES 30 mm 19-40 LA/aortic root ratio 1.03 DOPPLER MEASUREMENTS ADULT Normal Main pulmonary artery Pressure, S *32 mm Hg =30 Aortic valve Peak velocity, S 96.4 cm/s Valve area, Vmax 2.2 cm^2 Mitral valve Maximal regurgitant velocity 243 cm/s Tricuspid valve Regurgitant peak velocity 232 cm/s Peak RV-RA gradient, S 22 mm Hg Systemic veins Estimated CVP 10 mm Hg Right ventricle RV pressure, S *32 mm Hg <30 LEGEND: Mean values are shown as u=mean value. Asterisk (*) dutton values outside specified normal range. Prepared and signed by Tung Baires [id number]
[2016-07-23] MEDS ORDERED: IOHEXOL 350 MG/ML 10 ML VIAL (for RAD DIAG) IV ONE (17:44)
--- NOTE | 2016-07-23 18:20 | RADRPT ---
EXAM DATE/TIME: 07/23/2016 17:42 [facility] COMPARISON: No previous studies available for comparison. INDICATIONS : Diffuse abdominal pain; evaluate for abscess. IV CONTRAST: 96 cc Omnipaque 350 (iohexol) IV ORAL CONTRAST: Prescribed oral contrast ingested. RADIATION DOSE: 7.21 CTDIvol (mGy) MEDICAL HISTORY : Cardiovascular disease. Hypertension. Diabetes mellitus type 2. SURGICAL HISTORY : Cholecystectomy. Appendectomy. ENCOUNTER: Initial ACUITY: 2 days PAIN SCALE: 5/10 LOCATION: Diffuse abdomen/pelvis TECHNIQUE: Volumetric scanning of the abdomen and pelvis was performed. Using automated exposure control and ad justment of the mA and/or kV according to patient size, radiation dose was kept as low as reasonably achievable to obtain optimal diagnostic quality images. FINDINGS: LOWER LUNGS: Small bilateral pleural effusions greater the left. LIVER: Homogeneous density without lesion. There is no dilation of the biliary tree. Cholecystectomy clips. Multiple small round calcifications are seen along the liver capsule, stable. Trace ascites. SPLEEN: Normal size without lesion. PANCREAS: Within normal limits. KIDNEYS: Normal in size and shape. There is no mass or hydronephrosis. A few punctate nonobstructing bilatera l renal calculi measuring 2-3 mm. ADRENAL GLANDS: Within normal limits. VASCULAR: There is no aortic aneurysm. BOWEL/MESENTERY: Diverticulosis the colon without diverticulitis. The stomach is dilated and fluid-filled with fluid. Multiple small rounded calcified densities throughout the perineum, stable. There is no free intrape ritoneal air or fluid. ABDOMINAL WALL: Within normal limits. RETROPERITONEUM: There is no lymphadenopathy. BLADDER: No wall thickening or mass. REPRODUCTIVE: Within normal limits. INGUINAL: There is no lymphadenopathy or hernia. MUSCULOSKELETAL: Post surgical changes lower lumbar spine. CONCLUSION: 1. Diverticulosis without diverticulitis. 2. Minimal ascites. 3. Dilated stomach. 4. A few punctate of second bilateral renal calculi. 5. Small bilateral pleural effusions. 6. No abscess seen. James Wyatt MD on July 23, 2016 at 18:14 Board Certified Radiologist. This report was verified electronically.
[2016-07-23] MEDS: RESP: ALBUTEROL 2.5 MG/3 ML NEB (PRN) INH (20:16)
[2016-07-23] MEDS ORDERED: metFORMIN HCL 500 MG TAB PO SCH (21:00)
[2016-07-24] VITALS (9 sets, daily range): BP systolic 132–149; BP diastolic 77–99; PULSE 88–104; RESP 17–20; TEMP 97.3–97.9; O2SAT 91–100
[2016-07-24] MEDS ORDERED: PHARMACY ORDERED LAB XX ONE (04:45)
[2016-07-24] MEDS: VANCOMYCIN INJ 1,250 MG in SODIUM CHLOR 0.9% 250 ML INJ 250 ML IV SCH ×2 (05:12→17:46)
[2016-07-24 06:19] LABS: AUTOMATED NEUTROPHIL # 5.5 TH/MM3 (1.8-7.7); BASOPHIL % 0.5 % (0.0-2.0); EOSINOPHIL # 0.1 TH/MM3 (0-0.4); EOSINOPHIL % 1.8 % (0.0-4.0); HEMATOCRIT 41.5 % (39.0-51.0); HEMO FLAGS DIFF FINAL; LYMPH % 13.9 % (9.0-44.0); MEAN CELL VOLUME 88.5 FL (80.0-100.0); MEAN CORPUSCULAR HEMOGLOBIN 29.4 PG (27.0-34.0); MEAN CORPUSCULAR HGB CONC 33.2 % (32.0-36.0); MONO % 7.1 % (0.0-8.0); NEUT % 76.7 % (16.0-70.0); PLATELET COUNT 259 TH/MM3 (150-450); RED BLOOD COUNT 4.69 MIL/MM3 (4.50-5.90); RED CELL DISTRIBUTION WIDTH 14.8 % (11.6-17.2); WHITE BLOOD COUNT 7.2 TH/MM3 (4.0-11.0)
[2016-07-24 06:48] LABS: BICARBONATE 28.6 MEQ/L (21.0-32.0); POTASSIUM 3.8 MEQ/L (3.5-5.1)
[2016-07-24] MEDS ORDERED: PILL SPLITTER OTHER PRN (07:00)
[2016-07-24] MEDS: INSULIN ASPART SUPPLEMENTAL SCALE SQ SCH ×4 (08:22→20:47)
[2016-07-24] MEDS ORDERED: LISINOPRIL 5 MG TAB PO SCH (09:00)
[2016-07-24] MEDS: FUROSEMIDE 40 MG/4 ML VIAL IV PUSH SCH (09:14)
[2016-07-24] MEDS: SODIUM CHLORIDE 0.9% FLUSH 5 ML FLUSH FLUSH SCH ×2 (09:14→20:47)
[2016-07-24] MEDS: IBUPROFEN 600 MG TAB PO PRN ×2 (09:15→16:11)
[2016-07-24] MEDS: POTASSIUM CHLORIDE 20 MEQ CONTROLLED RELEASE TAB PO SCH (09:15)
[2016-07-24] MEDS: ASPIRIN EC 81 MG TABEC PO SCH (09:16)
[2016-07-24] MEDS: ENOXAPARIN SODIUM 40 MG/0.4 ML SYRINGE SQ SCH (11:20)
--- NOTE | 2016-07-24 11:24 | HHI.FPPN ---
Subjective Remarks No acute events overnight. Vital signs unremarkable with exception for continued tachycardia. Patient continues to report that he feels sustained and gets periodic episodes of shortness of breath and anxiety. (Kelsi Santiago MD R2) Objective Vitals Vital Signs Date Time Temp Pulse Resp B/P Pulse Ox O2 Delivery O2 Flow Rate FiO2 07/24/16 10:26 98 21 07/24/16 08:00 97.5 104 20 132/87 99 07/24/16 04:00 97.4 101 18 136/79 98 07/24/16 02:01 100 Nasal Cannula 2.00 07/24/16 00:00 97.9 103 17 147/89 91 07/23/16 20:05 103 07/23/16 20:00 97.4 105 18 126/74 97 07/23/16 18:36 98 Nasal Cannula 2.00 07/23/16 16:00 97.4 104 20 134/84 97 07/23/16 12:00 97.0 105 20 140/85 97 I/O 07/23/16 07/23/16 07/23/16 07/24/16 07/24/16 07/24/16 07:00 15:00 23:00 07:00 15:00 23:00 Intake Total 240 ml 1680 ml 240 ml 240 ml Output Total 300 ml Balance 240 ml 1680 ml -60 ml 240 ml Intake Oral 240 ml 1680 ml 240 ml 240 ml Output Urine Total 300 ml # Voids 2 6 3 # Bowel Movements 1 0 0 (Kelsi Santiago MD R2) Result Diagram: 07/24/1628 07/24/1628 Objective Remarks GEN: Thin male in no acute distress. CV: Regular rate and rhythm without obvious murmurs LUNGS: Clear to auscultation bilaterally. Normal respiratory effort. No wheezes , rales, rhonchi. EXT: No edema. No calf tenderness. NEURO/PSYCH: Awake, alert. Appropriate insight and judgment. Normal speech ( Kelsi Santiago MD R2) A/P Assessment and Plan 71yo male with PMH significant for IV drug use. Admitted for generalized malaise and endocarditis evaluation. Discharge Planning Pending ID recommendations and treatment. Time course unknown sdw Dr. Loaiza and Dr. Cameron (Kelsi Santiago MD R2) Assessment and Plan Attending note: Attending note: Patient seen and examined with the resident team. Case reviewed and discussed with the resident team. I agree with the plan of care as discussed with me and documented in the resident note. (Neil Loaiza MD) Problem List: (1) Bacteremia Status: Acute Plan: 07/08 blood cultures on 07/21/16 was positive for staph sp coagulase- negative while remaining blood cultures were negative. May be due to contamination vs bacteremia -Repeat blood cultures drawn on 07/23 negative 1 day -I&D of left wrist abscess performed on 07/[address] Cameron * discharge was collected and sent for culture: Results pending -Hepatitis and HIV negative -Repeat echo: EF of 15-20%. No endocarditis seen -Ordered MRI with contrast to evaluate for discitis ID: appreciate recommendations * CT abdomen: No abscesses seen * Continue Ceftriaxone (07/21- and vancomycin (07/22- * No PICC til cleared by ID (2) CHF (congestive heart failure) Status: Acute Plan: Initially presented for chest pain and shortness of breath. Echo from 2015 showed an EF of 55-60%. BNP on admission was significantly elevated. Continues to have symptoms of SOB. -ACS evaluation negative -Repeat echo with an EF of 15-20% -Cardiac telemetry Cardiology consulted: Appreciate recommendations Imaging: * CXR: Blunting of both costophrenic angles with some degree of effusion. Some focal increased interstitial markings the right lower lung suggesting some asymmetric basilar congestion or volume overload. No confluent infiltrate. * CTA: No evidence of PE. Bilateral effusions left basilar atelectasis. Medications: * Switch Lasix to 40 PO from IV * KCL 20mg daily * Aspirin 81mg daily * Added lisinopril 2.5mg * May need to consider labetalol/Coreg plus a potassium sparing diuretic. Will monitor patient's BP before adding other medications and pending cardiology recommendations (3) UTI (urinary tract infection) Status: Acute Plan: Urine culture growing Staph Aureus > 100,000 cfus that is pansensitive -Vancomycin 07/22- -Rocephin continued per attending recommendations (07/21- (4) DM (diabetes mellitus) Status: Acute Plan: - Continue accuchecks ACHS, low dose sliding scale - metformin held due to CTA on 07/[address] abdomen with contrast 07/23 (5) Polysubstance abuse Status: Chronic Plan: Patient admits to marijuana, Dilaudid, cocaine, methamphetamine drug use. UDS positive for cocaine and methamphetamine (6) Nutrition, metabolism, and development symptoms Status: Acute Plan: Diet: Diabetic Fluids: None Electrolytes: unremarkable, continue to monitor DVT prophylaxis: Lovenox GI prophylaxis: Not indicated (Kelsi Santiago MD R2) Problem Qualifiers (1) DM (diabetes mellitus): Qualified Code: E11.9 - Type 2 diabetes mellitus without complication, without long-term current use of insulin Kelsi Santiago MD R2 Jul 24, 2016 11:24 Neil Loaiza MD Jul 24, 2016 23:20
--- NOTE | 2016-07-24 13:13 | MB ---
cc: CA BRYAN M.D. DATE OF CONSULTATION: 07/24/2016 REASON FOR CONSULTATION Congestive heart failure, severe cardiomyopathy. HISTORY OF PRESENT ILLNESS The patient is a pleasant 71-year-old white male with a history of intravenous drug abuse, hypertension, hyperlipidemia, diabetes who presented to the hospital with an approximately 1-week history of increasing shortness of breath and chest pains. The patient states he has been barely able to walk across the room without considerable dyspnea. He also reports episodic paroxysmal nocturnal dyspnea but no pedal edema or orthopnea. Over the last several days he has also been having intermittent substernal chest pain described as "stabbing" although most of these chest pains have occurred after paroxysms of cough. The chest pains never last more than 2 minutes. He denies pleurisy, lightheadedness, syncope, near-syncope. Rarely he experiences pounding palpitations. He also denies any recent fevers. He continues to abuse crystal meth. PAST MEDICAL HISTORY 1. Paraspinal abscess near the site of prior back surgery necessitating the removal of hardware May 2015. 2. Hypertension. 3. Hyperlipidemia. 4. Diabetes. 5. Left upper extremity cellulitis September 2015. PAST SURGICAL HISTORY 1. Remote history of back surgery with hardware removal May 2015 due to paraspinal abscess. 2. Appendectomy. 3. Cholecystectomy. MEDICATIONS Current cardiac medications: 1. Furosemide 40 mg p.o. daily. 2. Lisinopril 2.5 mg p.o. daily. 3. Potassium chloride 20 meq p.o. daily. 4. Aspirin 81 mg p.o. daily. 5. Lovenox 40 mg subcutaneously q. 24-hours. ALLERGIES MORPHINE. FAMILY HISTORY The patient's mother and father both had problems with congestive heart failure. SOCIAL HISTORY The patient is a former smoker. He denies alcohol abuse. He admits to at least a 15-year history of abusing crystal meth. Rarely he abuses cocaine and smokes marijuana. REVIEW OF SYSTEMS Review of systems as in the history of present illness, otherwise negative or noncontributory. He currently denies headache, visual changes, abdominal pain, melena, dyspepsia, bright red blood per rectum. Of note, he does report at least a 100 pound weight loss in the last 5 years. PHYSICAL EXAMINATION VITAL SIGNS: His blood pressure is 132/87 with a pulse of 104, respirations 20. GENERAL: He is a well-developed thin white male, in no acute distress. HEENT: Jugular venous pressure is normal. Carotid pulses are 2+ bilaterally without bruits. CHEST: Examination of the chest reveals unlabored respiratory effort with decreased breath sounds at the bases. CARDIAC: On cardiac examination he has a tachycardic regular rhythm without S3-S4 or murmur. ABDOMEN: On abdominal examination he has a soft, nontender abdomen. Bowel sounds are present. There is no definite hepatosplenomegaly. EXTREMITIES: Examination of extremities reveals no clubbing, cyanosis or edema. LABORATORY DATA Laboratory data includes potassium 3.8, BUN 17, creatinine 1.06, AST 184, ALT 183, normal CBC, INR 1.4. IMAGING STUDIES Chest x-ray shows bilateral pleural effusions and increased interstitial markings in the right lower lung field. EKG Shows sinus tachycardia, left axis deviation, nonspecific T-wave abnormality. IMPRESSION Severe dilated cardiomyopathy, congestive heart failure in this 71-year-old white male with a history of hypertension, diabetes, hyperlipidemia, IV drug abuse, left upper extremity cellulitis September 2015. His echocardiogram this admission reportedly shows severely reduced left ventricular systolic function with ejection fraction of 15-20%. I suspect the cardiomyopathy is nonischemic in origin. His chest pains recently are very atypical for myocardial ischemia. On the other hand, troponin levels have been slightly abnormal. He does have risk factors for coronary disease. RECOMMENDATIONS 1. Continue his JENNIFER inhibitor and oral Lasix. 2. At this point, given his continued cocaine abuse would hold off on beta harshal therapy. 3. Check a Lexiscan nuclear stress test to rule out significant myocardial ischemia. MD TERESITA Neff/VIKI /12:23 PM /12:59 PM IAN
[2016-07-24] MEDS: cefTRIAXone INJ 2,000 MG in SODIUM CHLORIDE 0.9% INJ 100 ML IV SCH (16:11)
[2016-07-24] MEDS: ALPRAZolam 0.25 MG TAB PO PRN (17:46)
[2016-07-24] MEDS ORDERED: GADODIAMIDE PF 287 MG/ML 5 ML VIAL (for RAD MRI) IV ONE (18:47)
--- NOTE | 2016-07-24 19:19 | RADRPT ---
EXAM DATE/TIME: 07/24/2016 18:25 [facility] COMPARISON: MRI LUMBAR SPINE W & W/O CONTRAST, May 22, 2015, 12:24. CT LUMBAR SPINE W/O CONTRAST, May 22, 2015, 21:13. INDICATIONS : Osteomyelitis. Lower back pain with hardware removed in 2014. CONTRAST: 14 cc Omniscan (gadodiamide) IV MEDICAL HISTORY : Hypertension. Diabetes mellitus type 2. IVDU. SURGICAL HISTORY : Cholecystectomy. Knee surgery and hardware removed from back. ENCOUNTER: Subsequent ACUITY: 1 week PAIN SCORE: 6/10 LOCATION: Back. TECHNIQUE: Multiplanar multisequence MRI of the lumbar spine was performed with and without contrast. FINDINGS: Lumbar spine alignment is normal. Vertebral bodies have normal height and marrow signal. Conus termin us is normal, near the level of L1. Patient has had microdiscectomy and posterior fusion procedures at L4/L5 and L5/S1. There appears to been previous posterior instrumentation that is been removed. There are fluid collections in the bila teral paraspinous soft tissues that measure approximately 1.4 x 1.8 x 5.6 cm on the right and 1.8 x 3 .4 x 5.4 cm on the left. There is no rim enhancement or other evidence of abscess/infection. The thec al sac and epidural spaces are normal other than very mild postoperative scarring. There is no recurr ent or residual foraminal or spinal stenosis at L4/L5 or L5/S1. T12/L1 disc is mildly desiccated but otherwise normal. L1/L2-L3/L4 discs are normal. There is mild bi lateral facet osteoarthritis and synovitis at L3/L4. No bone signal changes to suggest osteomyelitis. CONCLUSION: 1. Previous surgery at L4/L5 and L5/S1 with subsequent hardware removal. There are elongated fluid co llections in the posterior paraspinous soft tissues on the right and left without MRI features convin cing for abscess. These are presumably seromas or old hematomas. Also no evidence of osteomyelitis.. 2. Normal thecal sac and epidural space. 3. No foraminal or spinal stenosis at any level. 4. Mild bilateral facet osteoarthritis and nonspecific synovitis at L3/L4. Kwesi Hinojosa MD on July 24, 2016 at 19:10 Board Certified Radiologist. This report was verified electronically.
--- NOTE | 2016-07-24 22:07 | HHI.PR ---
Addendum to Inpatient Note Addendum Reason: Additional Documentation Additional Information MRI spine reviewed Consult Neurosurgery Continue antibiotics. If Neurosurgery does not take him to OR will get IR to drain epidural abscess. Alina Davis MD Jul 24, 2016 22:07
[2016-07-25] VITALS (8 sets, daily range): BP systolic 122–145; BP diastolic 74–97; PULSE 96–102; RESP 18–22; TEMP 96–98.3; O2SAT 97–99
[2016-07-25] MEDS: RESP: ALBUTEROL 2.5 MG/3 ML NEB (PRN) INH (04:36)
[2016-07-25] MEDS: ALPRAZolam 0.25 MG TAB PO PRN ×2 (04:56→17:15)
[2016-07-25] MEDS: INSULIN ASPART SUPPLEMENTAL SCALE SQ SCH ×4 (05:24→21:45)
[2016-07-25] MEDS: VANCOMYCIN INJ 1,250 MG in SODIUM CHLOR 0.9% 250 ML INJ 250 ML IV SCH ×2 (05:24→17:30)
[2016-07-25 07:12] LABS: MEAN CELL VOLUME 87.4 FL (80.0-100.0); MEAN CORPUSCULAR HEMOGLOBIN 29.1 PG (27.0-34.0); MEAN CORPUSCULAR HGB CONC 33.3 % (32.0-36.0); PLATELET COUNT 264 TH/MM3 (150-450); RED BLOOD COUNT 5.03 MIL/MM3 (4.50-5.90); RED CELL DISTRIBUTION WIDTH 14.8 % (11.6-17.2); WHITE BLOOD COUNT 8.1 TH/MM3 (4.0-11.0)
[2016-07-25 07:16] LABS: BICARBONATE 29.4 MEQ/L (21.0-32.0); HEMO FLAGS AUTO DIFF; POTASSIUM 4.8 MEQ/L (3.5-5.1)
--- NOTE | 2016-07-25 07:38 | PD.CARD.PN ---
Subjective Subjective Remarks Increased dyspnea this morning. CP only after paroxysms of cough. No definite PND. No dizziness, palpitations. Objective Medications Item Value Date Time Furosemide 40 mg 07/25/16 0900 (Lasix) DAILY/PO Lisinopril 10 mg 07/25/16 0900 (Prinivil) DAILY/PO Potassium Chloride 20 meq 07/22/16 0900 (KCl) DAILY/PO 07/24/16 0915 Aspirin 81 mg 07/22/16 0900 (Ecotrin Ec) DAILY/PO 07/24/16 0916 Enoxaparin Sodium 40 mg 07/21/16 1300 (Lovenox Inj) Q24H/SQ 07/24/16 1120 Vital Signs / I&O Vital Signs Date Time Temp Pulse Resp B/P Pulse Ox O2 Delivery O2 Flow Rate FiO2 07/25/16 04:04 98.3 96 18 122/74 99 07/25/16 00:30 98.1 99 18 125/78 97 07/25/16 00:05 97 07/24/16 20:00 97.9 88 18 144/77 96 07/24/16 20:00 101 07/24/16 16:00 97.3 99 20 135/86 96 07/24/16 12:00 97.9 104 20 149/99 99 07/24/16 10:26 98 21 07/24/16 08:13 101 07/24/16 08:00 97.5 104 20 132/87 99 I/O 07/24/16 07/24/16 07/24/16 07/25/16 07/25/16 07/25/16 07:00 15:00 23:00 07:00 15:00 23:00 Intake Total 240 ml 602 ml 240 ml 0 ml Output Total 8 ml 325 ml Balance 240 ml 594 ml -85 ml 0 ml Intake Oral 240 ml 600 ml 240 ml 0 ml IV Total 2 ml Output Urine Total 8 ml 325 ml # Voids 3 # Bowel Movements 0 1 Physical Exam GENERAL: Well developed, well nourished. Mild respiratory distress. HEENT: Jugular venous pressure is normal. CHEST: Minimal bibasilar crackles. CARDIAC: Regular rate and rhythm without S3, S4, or murmur. ABDOMEN: Soft, nontender, no hepatosplenomegaly. Bowel sounds present. EXTREMITIES: No clubbing, cyanosis, or edema. Laboratory Laboratory Tests Test 07/25/16 06:04 White Blood Count 8.1 TH/MM3 Red Blood Count 5.03 MIL/MM3 Hemoglobin 14.6 GM/DL Hematocrit 44.0 % Mean Corpuscular Volume 87.4 FL Mean Corpuscular Hemoglobin 29.1 PG Mean Corpuscular Hemoglobin 33.3 % Concent Red Cell Distribution Width 14.8 % Platelet Count 264 TH/MM3 Mean Platelet Volume 9.5 FL Neutrophils (%) (Auto) % Lymphocytes (%) (Auto) % Monocytes (%) (Auto) % Eosinophils (%) (Auto) % Basophils (%) (Auto) % Neutrophils # (Auto) TH/MM3 Lymphocytes # (Auto) TH/MM3 Monocytes # (Auto) TH/MM3 Eosinophils # (Auto) TH/MM3 Basophils # (Auto) TH/MM3 CBC Comment AUTO DIFF Hematology Comments Sodium Level 138 MEQ/L Potassium Level 4.8 MEQ/L Chloride Level 103 MEQ/L Carbon Dioxide Level 29.4 MEQ/L Anion Gap 6 MEQ/L Blood Urea Nitrogen 18 MG/DL Creatinine 1.07 MG/DL Estimat Glomerular Filtration 69 ML/MIN Rate Random Glucose 253 MG/DL Calcium Level 8.9 MG/DL Assessment and Plan Problem List: (1) Atypical chest pain Assessment and Plan: CP's seem mostly related to coughing. In light of his severe cardiomyopathy, to evaluate further with nuclear stress testing. Rec medical therapy unless he demonstrates severe or extensive myocardial ischemia on nuclear imaging. Will have coverage see patient PRN over the weekend. (2) CHF (congestive heart failure) Assessment and Plan: Increased dyspnea this morning. Minimal rales on exam. Rec additional Lasix this morning. Continue JENNIFER-I. In light of his cocaine abuse, rec hold off on beta harshal therapy until he demonstrates abstinence. (3) HTN (hypertension) Assessment and Plan: BP's better this morning. Continue to monitor. (4) Dilated cardiomyopathy Assessment and Plan: EF 10-15% by echo this admission. Probably non-ischemic etiology, but with ongoing atypical CP's, to evaluate further with nuclear stress testing. Continue JENNIFER-I, Lasix. In light of his cocaine abuse, rec hold off on beta harshal therapy until he demonstrates abstinence. Assessment and Plan As above. Will have coverage see patient PRN over the weekend. If nuclear stress test negative for ischemia, OK to discharge from a cardiac standpoint. Code Status full code Discussed Condition With patient Problem Qualifiers (1) CHF (congestive heart failure): Qualified Code: I50.21 - Acute systolic congestive heart failure (2) HTN (hypertension): Qualified Code: I10 - Essential hypertension Russell Alberto MD Jul 25, 2016 07:38
[2016-07-25] MEDS ORDERED: FUROSEMIDE 40 MG/4 ML VIAL IV PUSH ONE (07:45)
[2016-07-25] MEDS: LISINOPRIL 10 MG TAB PO SCH (08:59)
[2016-07-25] MEDS: ASPIRIN EC 81 MG TABEC PO SCH (08:59)
[2016-07-25] MEDS: SODIUM CHLORIDE 0.9% FLUSH 5 ML FLUSH FLUSH SCH ×2 (08:59→21:45)
[2016-07-25] MEDS: POTASSIUM CHLORIDE 20 MEQ CONTROLLED RELEASE TAB PO SCH (09:00)
[2016-07-25] MEDS: FUROSEMIDE 40 MG TAB PO SCH (09:00)
[2016-07-25] MEDS: IBUPROFEN 600 MG TAB PO PRN ×2 (09:06→21:46)
[2016-07-25 09:24] LABS: EOSINOPHILS 2 % (0-4); NEUTROPHIL # MANUAL DIFF 5.8 TH/MM3 (1.8-7.7); PLATELET ESTIMATE SMEAR NORMAL (NORMAL); PLATELET MORPHOLOGY ENLARGED (NORMAL); POLYS (SEG NEUTROPHILS) 71 % (16-70); SCAN/DIFF FINAL DIFF MANUAL; WBC DIFF SAMPLE 100
--- NOTE | 2016-07-25 10:30 | HHI.FPPN ---
Subjective Remarks No acute events overnight. Vital signs unremarkable except for continued tachycardia. This morning patient states that he continues to feel unwell. He continues to get episodic episodes of anxiety and SOB. Also endorses fatigue. Objective Vitals Vital Signs Date Time Temp Pulse Resp B/P Pulse Ox O2 Delivery O2 Flow Rate FiO2 07/25/16 08:00 96.0 101 22 129/95 98 07/25/16 04:04 98.3 96 18 122/74 99 07/25/16 00:30 98.1 99 18 125/78 97 07/25/16 00:05 97 07/24/16 20:00 97.9 88 18 144/77 96 07/24/16 20:00 101 07/24/16 16:00 97.3 99 20 135/86 96 07/24/16 12:00 97.9 104 20 149/99 99 07/24/16 10:26 98 21 I/O 07/24/16 07/24/16 07/24/16 07/25/16 07/25/16 07/25/16 07:00 15:00 23:00 07:00 15:00 23:00 Intake Total 240 ml 602 ml 240 ml 0 ml Output Total 8 ml 325 ml Balance 240 ml 594 ml -85 ml 0 ml Intake Oral 240 ml 600 ml 240 ml 0 ml IV Total 2 ml Output Urine Total 8 ml 325 ml # Voids 3 # Bowel Movements 0 1 Result Diagram: 07/25/16 0604 07/25/16 0604 Objective Remarks GEN: Thin male in no acute distress. Laying in bed. CV: Increased rate but with normal rhythm without obvious murmurs. LUNGS: Clear to auscultation bilaterally. Normal respiratory effort. No wheezes , rales, rhonchi. EXT: No edema. No calf tenderness. NEURO/PSYCH: Awake, alert. Appropriate insight and judgment. Normal speech A/P Assessment and Plan 71yo male with PMH significant for IV drug use. Admitted for generalized malaise and endocarditis evaluation. Discharge Planning Pending ID recommendations and treatment. Time course unknown allyw Dr. Cameron wdw Dr. Loaiza Problem List: (1) Bacteremia Status: Acute Plan: 07/08 blood cultures on 07/21/16 was positive for staph sp coagulase- negative while remaining blood cultures were negative. May be due to contamination vs bacteremia -Repeat blood cultures drawn on 07/23 negative 1 day -I&D of left wrist abscess performed on 07/[address] Cameron * wound culture: MRSA -Hepatitis and HIV negative -Repeat echo: EF of 15-20%. No endocarditis seen -MRI of lumbar spine: elongated fluid collections in the posterior paraspinal soft tissues on the right and left without MRI features convincing for abscess. These are presumably seroma or hematomas. Also no evidence of osteomyelitis. ID: appreciate recommendations * CT abdomen: No abscesses seen * Continue Ceftriaxone (07/21- and vancomycin (07/22- * No PICC til cleared by ID * Consulted neurosurgery, if not taken 2 or will get IR to drain potential abscess. (2) CHF (congestive heart failure) Status: Acute Plan: Initially presented for chest pain and shortness of breath. Echo from 2015 showed an EF of 55-60%. BNP on admission was significantly elevated. Continues to have symptoms of SOB. -ACS evaluation negative -Repeat echo with an EF of 15-20% -Cardiac telemetry Cardiology consulted: Appreciate recommendations * Stress test * Increased lisinopril to 10 mg daily * Refrain from beta blockers at this time * Probably non-ischemic etiology * OK to dc from cardiac standpoint if stress test is negative Imaging: * CXR: Blunting of both costophrenic angles with some degree of effusion. Some focal increased interstitial markings the right lower lung suggesting some asymmetric basilar congestion or volume overload. No confluent infiltrate. * CTA: No evidence of PE. Bilateral effusions left basilar atelectasis. Medications: * Lasix 40 daily PO * KCL 20mg daily * Aspirin 81mg daily * Lisinopril 10 mg (3) UTI (urinary tract infection) Status: Acute Plan: Urine culture growing Staph Aureus > 100,000 cfus that is pansensitive -Vancomycin 07/22- -Rocephin (07/21- (4) DM (diabetes mellitus) Status: Acute Plan: - Continue accuchecks ACHS, low dose sliding scale (5) Polysubstance abuse Status: Chronic Plan: Patient admits to marijuana, Dilaudid, cocaine, methamphetamine drug use. UDS positive for cocaine and methamphetamine (6) Nutrition, metabolism, and development symptoms Status: Acute Plan: Diet: Diabetic Fluids: None Electrolytes: unremarkable, continue to monitor DVT prophylaxis: Lovenox GI prophylaxis: Not indicated Anxiety: Xanax 0.25mg PRN, Zoloft added 07/25 Problem Qualifiers (1) CHF (congestive heart failure): Qualified Code: I50.21 - Acute systolic congestive heart failure (2) DM (diabetes mellitus): Qualified Code: E11.9 - Type 2 diabetes mellitus without complication, without long-term current use of insulin Kelsi Santiago MD R2 Jul 25, 2016 10:29
[2016-07-25] MEDS ORDERED: REGADENOSON INJ 0.4 MG/5 ML SYR ONE (11:08)
[2016-07-25] MEDS: SERTRALINE HCL 50 MG TAB PO SCH (12:33)
[2016-07-25] MEDS: ENOXAPARIN SODIUM 40 MG/0.4 ML SYRINGE SQ SCH (12:34)
--- NOTE | 2016-07-25 12:36 | RADRPT ---
EXAM DATE/TIME: 07/25/2016 10:43 [facility] COMPARISON: No previous studies available for comparison. INDICATIONS : Increasing dyspnea for 1 week. Substernal chest pain intermittenly after spells of coughing. Congesti ve heart failure. DOSE: 25.6 mCi Tc99m Myoview at stress. 8.7 mCi Tc99m Myoview at rest. 0.4 mg Lexiscan STRESS SYMPTOMS: None. EJECTION FRACTION: 14% MEDICAL HISTORY : Diabetes mellitus type 2. Hypercholesterolemia. Hypertension. Stroke. SURGICAL HISTORY : Appendectomy. Cholecystectomy. ENCOUNTER: Initial ACUITY: 1 week PAIN SCALE: 4/10 LOCATION: Substernal chest TECHNIQUE: The patient underwent pharmacologic stress with infusion of prescribed dose. Continuous ECG tracing was monitored during stress. Gated SPECT imaging was performed after stress and conventional SPECT i maging was performed at rest. The examination was performed on a SPECT/CT scanner, both attenuation and non-corrected datasets were reviewed. FINDINGS: DISTRIBUTION: The maximum perfused segment at stress is in the anterior wall. PERFUSION STUDY: A large fixed perfusion abnormality is identified involving the septum, anteroseptal and inferior wal ls. There are no stress induced reversible perfusion abnormalities. GATED STUDY: Severe global hypokinesia is identified. Calculated ejection fraction is 14%. CONCLUSION: Ventriculomegaly with large fixed perfusion abnormality and no evidence of stress-induced reversible abnormalities. Severe global hypokinesia with 14% ejection fraction. RISK CATEGORY: High (>3% Annual Mortality Rate) Brown Tejeda MD on July 25, 2016 at 12:31 Board Certified Radiologist. This report was verified electronically.
--- NOTE | 2016-07-25 15:11 | HHI.IDPN ---
Subjective Subjective Remarks is a 71-year-old male with a PMH significant for IV drug use, back surgery, MSSA hardware infection followed by hardware removal. Currently admitted with back pain, multiple abscesses with different organisms in cultures. Patient is known IVDA and this can be seen in such cases. Overnight events reviewed, No fever No rash No diarrhea Feels a little change in breathing. Had a breathing Rx. Had stress test and was NPO. requests juice as he is very hungry. Antibiotics Ceftriaxone IV Vanco IV Lines Line sites with no e/o infection. Past Medical History reviewed. Allergies: Coded Allergies: Morphine (Verified Allergy, Severe, Itching, 07/21/16) *MDRO Multi-Drug Resistant Organism (Verified Adverse Reaction, Unknown, ) 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/16 Objective . Vital Signs Date Time Temp Pulse Resp B/P Pulse Ox O2 Delivery O2 Flow Rate FiO2 07/25/16 12:00 96.2 101 20 134/91 97 07/25/16 10:05 Nasal Cannula 07/25/16 08:00 96.0 101 22 129/95 98 07/25/16 04:04 98.3 96 18 122/74 99 07/25/16 00:30 98.1 99 18 125/78 97 07/25/16 00:05 97 07/24/16 20:00 97.9 88 18 144/77 96 07/24/16 20:00 101 07/24/16 16:00 97.3 99 20 135/86 96 07/24/16 07/24/16 07/25/16 15:00 23:00 07:00 Intake Total 602 ml 240 ml 0 ml Output Total 8 ml 325 ml Balance 594 ml -85 ml 0 ml Intake Oral 600 ml 240 ml 0 ml IV Total 2 ml Output Urine Total 8 ml 325 ml # Bowel Movements 1 . Laboratory Tests Test 07/24/16 07/25/16 05:28 06:04 White Blood Count 7.2 TH/MM3 8.1 TH/MM3 Red Blood Count 4.69 MIL/MM3 5.03 MIL/MM3 Hemoglobin 13.8 GM/DL 14.6 GM/DL Hematocrit 41.5 % 44.0 % Mean Corpuscular Volume 88.5 FL 87.4 FL Mean Corpuscular Hemoglobin 29.4 PG 29.1 PG Mean Corpuscular Hemoglobin 33.2 % 33.3 % Concent Red Cell Distribution Width 14.8 % 14.8 % Platelet Count 259 TH/MM3 264 TH/MM3 Mean Platelet Volume 8.3 FL 9.5 FL Neutrophils (%) (Auto) 76.7 % % Lymphocytes (%) (Auto) 13.9 % % Monocytes (%) (Auto) 7.1 % % Eosinophils (%) (Auto) 1.8 % % Basophils (%) (Auto) 0.5 % % Neutrophils # (Auto) 5.5 TH/MM3 TH/MM3 Lymphocytes # (Auto) 1.0 TH/MM3 TH/MM3 Monocytes # (Auto) 0.5 TH/MM3 TH/MM3 Eosinophils # (Auto) 0.1 TH/MM3 TH/MM3 Basophils # (Auto) 0.0 TH/MM3 TH/MM3 CBC Comment DIFF FINAL AUTO DIFF Differential Comment FINAL DIFF MANUAL Differential Total Cells 100 Counted Neutrophils % (Manual) 71 % Lymphocytes % 17 % Monocytes % 10 % Eosinophils % 2 % Neutrophils # (Manual) 5.8 TH/MM3 Platelet Estimate NORMAL Platelet Morphology Comment ENLARGED Hematology Comments Laboratory Tests Test 07/24/16 07/25/16 05:28 06:04 Sodium Level 136 MEQ/L 138 MEQ/L Potassium Level 3.8 MEQ/L 4.8 MEQ/L Chloride Level 96 MEQ/L 103 MEQ/L Carbon Dioxide Level 28.6 MEQ/L 29.4 MEQ/L Anion Gap 11 MEQ/L 6 MEQ/L Blood Urea Nitrogen 17 MG/DL 18 MG/DL Creatinine 1.06 MG/DL 1.07 MG/DL Estimat Glomerular Filtration 69 ML/MIN 69 ML/MIN Rate Random Glucose 292 MG/DL 253 MG/DL Calcium Level 8.8 MG/DL 8.9 MG/DL Microbiology Date/Time Procedure Status Source Growth 07/23/16 07:38 Aerobic Blood Culture - Preliminary Resulted Blood Peripheral NO GROWTH IN 2 DAYS 07/23/16 07:38 Anaerobic Blood Culture - Preliminary Resulted Blood Peripheral NO GROWTH IN 2 DAYS 07/23/16 07:48 Aerobic Blood Culture - Preliminary Resulted Blood Peripheral NO GROWTH IN 2 DAYS 07/23/16 07:48 Anaerobic Blood Culture - Preliminary Resulted Blood Peripheral NO GROWTH IN 2 DAYS 07/23/16 10:20 Gram Stain - Final Complete Wound Arm 07/23/16 10:20 Wound Culture - Final Complete S. Aureus [facility] Imaging Last Impressions Myocardial Perfusion Scan Nuc Med 07/25/16 0000 Signed Impressions: Service Date/Time: Monday, July 25, 2016 10:43 - CONCLUSION: Ventriculomegaly with large fixed perfusion abnormality and no evidence of stress-induced reversible abnormalities. Severe global hypokinesia with 14%% ejection fraction. RISK CATEGORY: High (>3%% Annual Mortality Rate) Brown Tejeda MD Lumbar Spine MRI 07/24/16 0000 Signed Impressions: Service Date/Time: July 18:25 - CONCLUSION: 1. Previous surgery at L4/L5 and L5/S1 with subsequent hardware removal. There are elongated fluid collections in the posterior paraspinous soft tissues on the right and left without MRI features convincing for abscess. These are presumably seromas or old hematomas. Also no evidence of osteomyelitis.. 2. Normal thecal sac and epidural space. 3. No foraminal or spinal stenosis at any level. 4. Mild bilateral facet osteoarthritis and nonspecific synovitis at L3/L4. Kwesi Hinojosa MD Abdomen/Pelvis CT 07/23/16 0000 Signed Impressions: Service Date/Time: Saturday, July 23, 2016 17:42 - CONCLUSION: 1. Diverticulosis without diverticulitis. 2. Minimal ascites. 3. Dilated stomach. 4. A few punctate of second bilateral renal calculi. 5. Small bilateral pleural effusions. 6. No abscess seen. James Wyatt MD Chest X-Ray 07/21/16 1002 Signed Impressions: Service Date/Time: Thursday, July 21, 2016 10:01 - CONCLUSION: 1. Blunting of both costophrenic angles, right greater than left suggesting some degree of effusion. 2. In addition, there is some focal increased interstitial markings in the right lower lung field suggesting some asymmetric vascular congestion or volume overload. No confluent infiltrate. 3. Dextroscoliosis of the thoracolumbar spine with associated degenerative changes Nikos Kaur MD CT Angiography 07/21/16 0000 Signed Impressions: Service Date/Time: Thursday, July 21, 2016 11:06 - CONCLUSION: 1. No evidence of pulmonary embolism. 2. Bilateral effusions and left basilar atelectasis Amos Toledo MD Physical Exam GENERAL: This is a well-nourished, well-developed patient, in no apparent distress. SKIN: No rashes, ecchymoses or lesions. Cool and dry. HEAD: Atraumatic. Normocephalic. No temporal or scalp tenderness. EYES: Pupils equal round and reactive. Extraocular motions intact. No scleral icterus. No injection or drainage. ENT: Nose without bleeding, purulent drainage or septal hematoma. Throat without erythema, tonsillar hypertrophy or exudate. Uvula midline. Airway patent. NECK: Trachea midline. Supple, nontender, no meningeal signs. CARDIOVASCULAR: HS audible. RESPIRATORY: Clear to auscultation. Breath sounds equal bilaterally. GASTROINTESTINAL: Abdomen soft, non-tender, nondistended. MUSCULOSKELETAL: Rt forearm with small abscess 2x2 cm with induration but no fluctuance. Left forearm at wrist level lanced indurated area(prior abscess site per patient ) NEUROLOGICAL: Awake and alert. Grossly nonfocal. Psych: cooperative IV line sites with no e/o infection. Assessment & Plan Remarks Coag neg staph bacteremia in pt with IVDA and prior Spine Osteomyelitis. MSSA in urine: ? translocation in urine from Staph bacteremia. Possible Endocarditis and or Spinal hardware infection. Prior MSSA hardware infection s/p removal. Bilateral forearm abscess (left at wrist level, right in mid forearm) IVDA ongoing. Abnormal Liver function tests: ? sepsis vs hepatitis related. Recs HIV and hepatitis profile negative. Follow repeat blood cultures Follow cultures of abscess. Continue Ceftriaxone IV change dose to 2 gm IV q12hrs for epidural abscess and for endocarditis. Continue Vanco IV(target 15-20) No PICC till cleared by ID. Reviewed MRI spine: noted fluid collections. Given patients symptomatology, clinical picture and IVDA concern these are infected. Neurosurgery consult placed. Left message for PA. Lance Arroyo: follow on Neurosurgery consult and call to ask if he will be taking patient to OR or would like IR to aspirate the fluid. Cultures to be ordered are as follows: 1. Gram stain and culture 2. AFB stain and culture 3. Fungal stain and culture. Lance Arroyo to order these and coordinate with IR and . Alina Davis MD Jul 25, 2016 15:11
[2016-07-25] MEDS: cefTRIAXone INJ 2,000 MG in SODIUM CHLORIDE 0.9% INJ 100 ML IV SCH (16:23)
--- NOTE | 2016-07-25 17:22 | HHI.FPPN ---
Addendum to progress note ADDENDUM Reason for addendum: Additonal documentation Additional information Attempted to contact neurosurgery but was unable to. Was told that Dr. Thomas should have been consulted for possible drainage of fluid. By time I contacted the office he was no longer available. Went ahead and contacted IR to get drainage. Did speak with on-call neurosurgeon briefly Dr. Logan who reviewed the records and stated that IR drainage would be adequate. Kelsi Santiago MD R2 Jul 25, 2016 17:22
[2016-07-26] VITALS (8 sets, daily range): BP systolic 123–151; BP diastolic 78–95; PULSE 86–103; RESP 16–22; TEMP 96–97.7; O2SAT 92–100
--- NOTE | 2016-07-26 00:45 | RADRPT ---
EXAM DATE/TIME: 07/25/2016 23:13 [facility] COMPARISON: No previous studies available for comparison. INDICATIONS : Possible fluid collection post surgery. MEDICAL HISTORY : Hypercholesterolemia. Hypertension. Cerebrovascular accident. Hearing loss. Coronary artery disease . Diabetes. Antiphospholipid syndrome. Collapsed lung. Substance abuse. SURGICAL HISTORY : Cholecystectomy. Appendectomy. Multiple back and knee surgeries. ENCOUNTER: Initial ACUITY: 1 day PAIN SCORE: 0/10 LOCATION: Bilateral back AREA EVALUATED: Right and left lower back. FINDINGS: Focal scanning of the parasagittal lower back was performed. There is thickening of the subcutaneous soft tissues and deep to this, there are bilateral complex structures that have both hypoechoic and intermediate echoes and some through transmission which measures 6.0 x 2.6 x 2.0 cm on the right side and 5.0 x 3.4 x 1.3 cm on the left side. No internal flow seen by color Doppler. CONCLUSION: In the parasagittal lower back, deep to the subcutaneous tissues, there are bilateral mixed cystic an d solid lesion which measure up to 6 cm in size. Kalyan Hayes MD on July 26, 2016 at 0:40 Board Certified Radiologist. This report was verified electronically.
[2016-07-26] MEDS: RESP: ALBUTEROL 2.5 MG/3 ML NEB (PRN) INH (00:50)
[2016-07-26] MEDS: ALPRAZolam 0.25 MG TAB PO PRN ×2 (03:35→11:24)
[2016-07-26] MEDS ORDERED: PHARMACY ORDERED LAB XX ONE (05:45)
[2016-07-26] MEDS: VANCOMYCIN INJ 1,250 MG in SODIUM CHLOR 0.9% 250 ML INJ 250 ML IV SCH ×2 (05:46→17:52)
[2016-07-26] MEDS: INSULIN ASPART SUPPLEMENTAL SCALE SQ SCH ×4 (05:51→21:00)
[2016-07-26 06:44] LABS: BICARBONATE 27.3 MEQ/L (21.0-32.0); POTASSIUM 4.3 MEQ/L (3.5-5.1)
[2016-07-26 07:08] LABS: AUTOMATED NEUTROPHIL # 4.9 TH/MM3 (1.8-7.7); BASOPHIL # 0.1 TH/MM3 (0-0.2); BASOPHIL % 0.8 % (0.0-2.0); EOSINOPHIL # 0.1 TH/MM3 (0-0.4); EOSINOPHIL % 1.3 % (0.0-4.0); HEMATOCRIT 42.6 % (39.0-51.0); HEMO FLAGS DIFF FINAL; LYMPH % 24.6 % (9.0-44.0); LYMPHOCYTE # 1.9 TH/MM3 (1.0-4.8); MEAN CELL VOLUME 88.5 FL (80.0-100.0); MEAN CORPUSCULAR HEMOGLOBIN 28.9 PG (27.0-34.0); MEAN CORPUSCULAR HGB CONC 32.7 % (32.0-36.0); MONO % 8.4 % (0.0-8.0); NEUT % 64.9 % (16.0-70.0); PLATELET COUNT 331 TH/MM3 (150-450); RED BLOOD COUNT 4.81 MIL/MM3 (4.50-5.90); RED CELL DISTRIBUTION WIDTH 14.6 % (11.6-17.2); WHITE BLOOD COUNT 7.6 TH/MM3 (4.0-11.0)
[2016-07-26] MEDS: LISINOPRIL 10 MG TAB PO SCH (10:06)
[2016-07-26] MEDS: IBUPROFEN 600 MG TAB PO PRN (10:06)
[2016-07-26] MEDS: FUROSEMIDE 40 MG TAB PO SCH (10:06)
[2016-07-26] MEDS: ASPIRIN EC 81 MG TABEC PO SCH (10:06)
[2016-07-26] MEDS: SERTRALINE HCL 50 MG TAB PO SCH (10:06)
[2016-07-26] MEDS: SODIUM CHLORIDE 0.9% FLUSH 5 ML FLUSH FLUSH SCH ×2 (10:07→21:29)
[2016-07-26] MEDS: POTASSIUM CHLORIDE 20 MEQ CONTROLLED RELEASE TAB PO SCH (10:07)
--- NOTE | 2016-07-26 11:25 | HHI.NSPN ---
Note Status Status: Progress Note Interval History Interval History This is Dr Thomas's patient, who did a fusion. Dr Thomas's PA has been contacted. He will follow the patient Labs, Micro, & Vital Signs Results Date Time Temp Pulse Resp B/P Pulse Ox O2 Delivery O2 Flow Rate FiO2 07/26/16 08:00 103 07/26/16 08:00 Room Air 07/26/16 08:00 97.3 101 16 151/90 100 07/26/16 04:00 97.6 97 18 144/86 99 07/26/16 00:52 96 Nasal Cannula 2.00 07/26/16 00:00 97.7 96 19 137/91 92 07/25/16 20:08 21 07/25/16 20:00 102 07/25/16 20:00 97.3 98 18 142/89 98 07/25/16 20:00 Nasal Cannula 2.00 07/25/16 16:00 97.2 100 20 145/97 98 07/25/16 12:00 96.2 101 20 134/91 97 07/26/16 06:59 Intake Total 1160 ml Output Total 600 ml Balance 560 ml Constitutional Vital Signs Date Time Temp Pulse Resp B/P Pulse Ox O2 Delivery O2 Flow Rate FiO2 07/26/16 08:00 103 07/26/16 08:00 Room Air 07/26/16 08:00 97.3 101 16 151/90 100 07/26/16 04:00 97.6 97 18 144/86 99 07/26/16 00:52 96 Nasal Cannula 2.00 07/26/16 00:00 97.7 96 19 137/91 92 07/25/16 20:08 21 07/25/16 20:00 102 07/25/16 20:00 97.3 98 18 142/89 98 07/25/16 20:00 Nasal Cannula 2.00 07/25/16 16:00 97.2 100 20 145/97 98 07/25/16 12:00 96.2 101 20 134/91 97 07/26/16 06:59 Intake Total 1160 ml Output Total 600 ml Balance 560 ml Terrence,Patric Talha MD Jul 26, 2016 11:25
--- NOTE | 2016-07-26 12:27 | HHI.FPPN ---
Subjective Remarks No events overnight. Afebrile, vitals are stable. Patient has complaints of pain in his mid-abdomen unchanged from prior days. Continues to report pain in his low back. He states he has been ambulatory without issues. Denies any recent fevers or chills. Objective Vitals Vital Signs Date Time Temp Pulse Resp B/P Pulse Ox O2 Delivery O2 Flow Rate FiO2 07/26/16 12:00 97.3 100 22 141/95 97 07/26/16 08:00 103 07/26/16 08:00 Room Air 07/26/16 08:00 97.3 101 16 151/90 100 07/26/16 04:00 97.6 97 18 144/86 99 07/26/16 00:52 96 Nasal Cannula 2.00 07/26/16 00:00 97.7 96 19 137/91 92 07/25/16 20:08 21 07/25/16 20:00 102 07/25/16 20:00 97.3 98 18 142/89 98 07/25/16 20:00 Nasal Cannula 2.00 07/25/16 16:00 97.2 100 20 145/97 98 I/O 07/25/16 07/25/16 07/25/16 07/26/16 07/26/16 07/26/16 07:00 15:00 23:00 07:00 15:00 23:00 Intake Total 0 ml 500 ml 380 ml 280 ml Output Total 300 ml 300 ml Balance 0 ml 200 ml 80 ml 280 ml Intake Oral 0 ml 500 ml 380 ml 280 ml Output Urine Total 300 ml 300 ml # Voids 3 # Bowel Movements 0 Result Diagram: 07/26/16 0540 07/26/16 0540 Objective Remarks GEN: Thin male in no acute distress. Lying in bed. CV: Increased rate but with normal rhythm without obvious murmurs. LUNGS: Clear to auscultation bilaterally. Normal respiratory effort. No wheezes , rales, rhonchi. ABDOMEN: soft, mildly tender to palpation mid abdomen, nondistended, normal BS. No guarding or rebound tenderness. EXT: No edema. No calf tenderness. NEURO/PSYCH: Awake, alert. Appropriate insight and judgment. Normal speech A/P Assessment and Plan 71yo male with PMH significant for IV drug use. Admitted for generalized malaise and endocarditis evaluation. Discharge Planning Pending ID recommendations and treatment. Time course unknown Problem List: (1) Bacteremia Status: Acute Plan: 1/ blood cultures on 07/21/16 was positive for staph sp coagulase- negative while remaining blood cultures were negative. May be due to contamination vs bacteremia -Repeat blood cultures drawn on 07/23 negative 3 day -I&D of left wrist abscess performed on 07/23 * wound culture: MRSA -Hepatitis and HIV negative -Repeat echo: EF of 15-20%. No endocarditis seen -MRI of lumbar spine: elongated fluid collections in the posterior paraspinal soft tissues on the right and left without MRI features convincing for abscess. These are presumably seroma or hematomas. Also no evidence of osteomyelitis. ID consulted: appreciate recommendations * CT abdomen: No abscesses seen * Continue Ceftriaxone (started 07/21) and vancomycin (started 07/22) * No PICC till cleared by ID * Consulted neurosurgery, if not taken to OR will get IR to drain potential abscess (2) CHF (congestive heart failure) Status: Acute Plan: Initially presented for chest pain and shortness of breath. Echo from 2015 showed an EF of 55-60%. BNP on admission was significantly elevated. Continues to have symptoms of SOB. -ACS evaluation negative -Repeat echo with an EF of 15-20% -Cardiac telemetry Cardiology consulted: Appreciate recommendations * Nuclear stress test showing ventriculomegaly with large fixed perfusion abnormality and no evidence of stress-induced reversible abnormalities. Severe global hypokinesia with 14% ejection fraction. * Increased lisinopril to 10 mg daily * Refrain from beta blockers at this time * Probably non-ischemic etiology * OK to dc from a cardiac standpoint Imaging: * CXR: Blunting of both costophrenic angles with some degree of effusion. Some focal increased interstitial markings the right lower lung suggesting some asymmetric basilar congestion or volume overload. No confluent infiltrate. * CTA: No evidence of PE. Bilateral effusions left basilar atelectasis. Medications: * Lasix 40 daily PO * KCL 20mg daily * Aspirin 81mg daily * Lisinopril 10 mg (3) UTI (urinary tract infection) Status: Acute Plan: Urine culture growing Staph Aureus > 100,000 cfus that is pansensitive -Vancomycin started 07/22 -Rocephin started 07/21 (4) DM (diabetes mellitus) Status: Acute Plan: - Continue accuchecks ACHS, low dose sliding scale (5) Polysubstance abuse Status: Chronic Plan: Patient admits to marijuana, Dilaudid, cocaine, methamphetamine drug use. UDS positive for cocaine and methamphetamine (6) Nutrition, metabolism, and development symptoms Status: Acute Plan: Diet: Diabetic Fluids: None Electrolytes: unremarkable, continue to monitor DVT prophylaxis: Lovenox GI prophylaxis: Not indicated Anxiety: Xanax 0.25mg PRN, Zoloft started 07/25 Problem Qualifiers (1) CHF (congestive heart failure): Qualified Code: I50.21 - Acute systolic congestive heart failure (2) DM (diabetes mellitus): Qualified Code: E11.9 - Type 2 diabetes mellitus without complication, without long-term current use of insulin Marcos Cameron MD R1 Jul 26, 2016 12:27
[2016-07-26] MEDS: cefTRIAXone INJ 2,000 MG in SODIUM CHLORIDE 0.9% INJ 100 ML IV SCH (15:06)
--- NOTE | 2016-07-26 18:54 | PD.RAD ---
Post Procedure Progress Note Pre Procedure Diagnosis: (1) Fever (2) Low back pain (3) Fluid collection at surgical site Post Procedure Diagnosis: (1) Fever (2) Low back pain (3) Fluid collection at surgical site Procedure Date: Jul 26, 2016 Supervising Radiologist: Nikos Kaur Proceduralist/Assist: Alea Kelley, RT(R)(), Pam Mcmillan RT(R)() Anesthesia: Local Plan of Activity Patient to Unit: Nursing Unit Patient Condition: Good See PACS Report for procedural detail/treatment Drainage Procedure Procedure 1 Imaging Guidance: Fluoroscopy, Ultrasound Procedure Type: Aspiration (Fluid collections in lower back paraspinal surgical site) Fluid Description: Clear, Red Findings: 1-2 cc aspirated from small paraspinal collections on the left and right sides of the lower back Nikos Kaur MD Jul 26, 2016 18:54
--- NOTE | 2016-07-26 19:07 | RADRPT ---
EXAM DATE/TIME: 07/26/2016 16:35 [place] COMPARISON: ULTRASOUND SOFT TISSUE, July 25, 2016, 23:13. INDICATIONS : Patient with posterior paraspinous tissue abcess in need of aspiration of fluid. MEDICAL HISTORY : IV drug abuse Bacteremia secondary to abscess of the spine. hypertension-resolved after wt loss Hyperlipidemia-resolved after wt loss Diabetes-resolved after wt loss Antiphospholipid antibody syndrome-use to be on warfarin, stopped 6-7yrs TIA Collapsed lung SURGICAL HISTORY : 1. Patient had hardware removed from his back in May 2015 secondary to infection. 2. Appendectomy. 3. Cholecystectomy 4. Numerous back surgeries ENCOUNTER: Initial ACUITY: 4 - 6 days PAIN SCORE: 0/10 FLUORO TIME: .25 minutes DEVICE(S): 1.) 09/06 coaxial dilator TECH NOTE: 2CC OF FLUID REMOVED FROM EACH SIDE AND SENT TO LAB FOR TESTING.CHITRA JAEGER MR#:[id number] DOB[birth year] Exam Dt/Desc: July 26, 2016ABC[facility] DRAINAGE PROCEDURE : 1. Abscess drainage. The risks, benefits and alternatives to the procedure were explained and verbal and written consent w as obtained. The site was prepped in sterile fashion. Full sterile technique was used, including ca p, mask, sterile gloves and gown and a large sterile sheet. Hand hygiene and 2% chlorhexidine and/or betadine/alcohol prep was utilized per protocol for cutaneous antisepsis. The skin and subcutaneous tissues were infiltrated with local anesthetic solution. Using ultrasound guidance, complex collections are identified in the paraspinal distribution of the s ubcutaneous tissues of the lower back bilaterally. The most anechoic areas each collection was locali zed and the overlying skin anesthetized with 3 cc 1% Xylocaine. Extensive scar tissue is identified i n this region due to prior back surgery. 21 gauge micropuncture needle was sonographically guided int o each of the collections, first on the right than on the left. Approximately 2 cc of serosanguineous fluid was aspirated from each collection and sent to laboratory for analysis. CONCLUSION: Uncomplicated aspiration of complex fluid collections in the lower back bilaterally as detailed above. Nikos Kaur MD on July 26, 2016 at 19:02 Board Certified Radiologist. This report was verified electronically.
[2016-07-27] VITALS (8 sets, daily range): BP systolic 118–150; BP diastolic 74–95; PULSE 83–103; RESP 17–20; TEMP 97–98.4; O2SAT 92–98
[2016-07-27] MEDS: VANCOMYCIN INJ 1,250 MG in SODIUM CHLOR 0.9% 250 ML INJ 250 ML IV SCH ×2 (04:58→17:11)
[2016-07-27] MEDS: ALPRAZolam 0.25 MG TAB PO PRN (05:59)
[2016-07-27] MEDS: INSULIN ASPART SUPPLEMENTAL SCALE SQ SCH ×4 (05:59→21:12)
[2016-07-27] MEDS: LISINOPRIL 10 MG TAB PO SCH (08:42)
[2016-07-27] MEDS: SODIUM CHLORIDE 0.9% FLUSH 5 ML FLUSH FLUSH SCH ×2 (08:43→21:09)
[2016-07-27] MEDS: FUROSEMIDE 40 MG TAB PO SCH (08:43)
[2016-07-27] MEDS: POTASSIUM CHLORIDE 20 MEQ CONTROLLED RELEASE TAB PO SCH (08:43)
[2016-07-27] MEDS: ASPIRIN EC 81 MG TABEC PO SCH (08:43)
[2016-07-27] MEDS: SERTRALINE HCL 50 MG TAB PO SCH (08:43)
[2016-07-27 09:47] LABS: AUTOMATED NEUTROPHIL # 5.9 TH/MM3 (1.8-7.7); BASOPHIL % 0.6 % (0.0-2.0); EOSINOPHIL % 0.4 % (0.0-4.0); HEMATOCRIT 42.4 % (39.0-51.0); HEMO FLAGS DIFF FINAL; LYMPH % 14.3 % (9.0-44.0); LYMPHOCYTE # 1.1 TH/MM3 (1.0-4.8); MEAN CELL VOLUME 88.8 FL (80.0-100.0); MEAN CORPUSCULAR HEMOGLOBIN 28.4 PG (27.0-34.0); MONO % 6.2 % (0.0-8.0); NEUT % 78.5 % (16.0-70.0); PLATELET COUNT 310 TH/MM3 (150-450); RED BLOOD COUNT 4.78 MIL/MM3 (4.50-5.90); RED CELL DISTRIBUTION WIDTH 14.7 % (11.6-17.2); WHITE BLOOD COUNT 7.5 TH/MM3 (4.0-11.0)
[2016-07-27 10:10] LABS: BICARBONATE 23.7 MEQ/L (21.0-32.0); POTASSIUM 4.7 MEQ/L (3.5-5.1)
[2016-07-27] MEDS: IBUPROFEN 600 MG TAB PO PRN (10:46)
--- NOTE | 2016-07-27 15:31 | HHI.FPPN ---
Subjective Remarks No acute events overnight. Vital signs unchanged. This morning patient continues to state that he feels lousy with no change in his symptoms. Denies any worsening of his symptoms of malaise. Objective Vitals Vital Signs Date Time Temp Pulse Resp B/P Pulse Ox O2 Delivery O2 Flow Rate FiO2 07/27/16 12:00 97.0 88 20 118/79 97 07/27/16 11:33 98 07/27/16 08:48 Room Air 07/27/16 08:00 97.3 97 18 136/88 98 07/27/16 04:00 98.4 103 19 150/95 92 07/27/16 00:00 97.1 91 18 135/88 97 07/26/16 21:30 89 07/26/16 21:30 Nasal Cannula 2.00 07/26/16 20:00 97.1 86 16 123/78 97 07/26/16 16:00 96.0 94 20 129/93 99 I/O 07/26/16 07/26/16 07/26/16 07/27/16 07/27/16 07/27/16 07:00 15:00 23:00 07:00 15:00 23:00 Intake Total 280 ml 220 ml 180 ml 320 ml 2 ml Balance 280 ml 220 ml 180 ml 320 ml 2 ml Intake Oral 280 ml 120 ml 180 ml 320 ml IV Total 100 ml 2 ml # Voids 3 3 1 2 # Bowel Movements 1 Result Diagram: 07/27/16 0730 07/27/16 0730 Objective Remarks GEN: Thin male in no acute distress. Lying in bed. CV: Increased rate but with normal rhythm without obvious murmurs. LUNGS: Clear to auscultation bilaterally. Normal respiratory effort. No wheezes , rales, rhonchi. ABDOMEN: soft, mildly tender to palpation mid abdomen, nondistended, normal BS. No guarding or rebound tenderness. EXT: No edema. No calf tenderness. NEURO/PSYCH: Awake, alert. Appropriate insight and judgment. Normal speech A/P Assessment and Plan 71yo male with PMH significant for IV drug use. Admitted for generalized malaise and endocarditis evaluation. Discharge Planning Pending ID recommendations and treatment. Time course unknown dw Dr. Loaiza Problem List: (1) Bacteremia Status: Acute Plan: 07/08 blood cultures on 07/21/16 was positive for staph sp coagulase- negative while remaining blood cultures were negative. Likely due to contamination vs bacteremia -Repeat blood cultures drawn on 07/23 negative 3 day -I&D of left wrist abscess performed on 07/23 * wound culture: MRSA -Hepatitis and HIV negative -Repeat echo: EF of 15-20%. No endocarditis seen -MRI of lumbar spine: elongated fluid collections in the posterior paraspinal soft tissues on the right and left without MRI features convincing for abscess. These are presumably seroma or hematomas. Also no evidence of osteomyelitis. -Back fluid collection: negative, except acid fast stain and culture pending ID consulted: appreciate recommendations * CT abdomen: No abscesses seen * Continue Ceftriaxone (started 07/21) and vancomycin (started 07/22) * No PICC till cleared by ID * Consulted neurosurgery IR: * 1-2 cc aspirated from small paraspinal collections on the left and right sides of the lower back (2) CHF (congestive heart failure) Status: Acute Plan: Initially presented for chest pain and shortness of breath. Echo from 2015 showed an EF of 55-60%. BNP on admission was significantly elevated. Suspect CHF contributing to symptoms of chronic malaise -ACS evaluation negative -Repeat echo with an EF of 15-20% -Cardiac telemetry Cardiology consulted: Appreciate recommendations * Nuclear stress test showing ventriculomegaly with large fixed perfusion abnormality and no evidence of stress-induced reversible abnormalities. Severe global hypokinesia with 14% ejection fraction. * lisinopril to 10 mg daily * Refrain from beta blockers at this time * Probably non-ischemic etiology * OK to dc from a cardiac standpoint Imaging: * CXR: Blunting of both costophrenic angles with some degree of effusion. Some focal increased interstitial markings the right lower lung suggesting some asymmetric basilar congestion or volume overload. No confluent infiltrate. * CTA: No evidence of PE. Bilateral effusions left basilar atelectasis. Medications: * decreased Lasix 40 daily PO to 20mg * decresed KCL 20meq daily to 10meq * Aspirin 81mg daily * Lisinopril 10 mg (3) UTI (urinary tract infection) Status: Acute Plan: Urine culture growing Staph Aureus > 100,000 cfus that is pansensitive -Vancomycin started 07/22- -Rocephin started 07/21- (4) DM (diabetes mellitus) Status: Acute Plan: - Continue accuchecks ACHS, low dose sliding scale -metformin held due to need for contrast studies. Anticipate discharging on medication (5) Polysubstance abuse Status: Chronic Plan: Patient admits to marijuana, Dilaudid, cocaine, methamphetamine drug use. UDS positive for cocaine and methamphetamine (6) Nutrition, metabolism, and development symptoms Status: Acute Plan: Diet: Diabetic Fluids: None Electrolytes: unremarkable, continue to monitor DVT prophylaxis: Lovenox HELD for procedure, resume 07/28 GI prophylaxis: Not indicated Anxiety: Xanax 0.25mg PRN, Zoloft started 07/25 Problem Qualifiers (1) CHF (congestive heart failure): Qualified Code: I50.21 - Acute systolic congestive heart failure (2) DM (diabetes mellitus): Qualified Code: E11.9 - Type 2 diabetes mellitus without complication, without long-term current use of insulin Kelsi Santiago MD R2 Jul 27, 2016 15:30
[2016-07-27] MEDS: cefTRIAXone INJ 2,000 MG in SODIUM CHLORIDE 0.9% INJ 100 ML IV SCH (15:42)
[2016-07-28] VITALS (10 sets, daily range): BP systolic 118–147; BP diastolic 59–98; PULSE 84–100; RESP 16–20; TEMP 97.2–97.9; O2SAT 96–98
[2016-07-28] MEDS: VANCOMYCIN INJ 1,250 MG in SODIUM CHLOR 0.9% 250 ML INJ 250 ML IV SCH ×2 (06:28→17:58)
[2016-07-28] MEDS: INSULIN ASPART SUPPLEMENTAL SCALE SQ SCH ×4 (06:30→22:02)
[2016-07-28 08:03] LABS: HEMATOCRIT 42.8 % (39.0-51.0); MEAN CELL VOLUME 87.5 FL (80.0-100.0); MEAN CORPUSCULAR HEMOGLOBIN 28.7 PG (27.0-34.0); MEAN CORPUSCULAR HGB CONC 32.8 % (32.0-36.0); PLATELET COUNT 292 TH/MM3 (150-450); RED BLOOD COUNT 4.89 MIL/MM3 (4.50-5.90); RED CELL DISTRIBUTION WIDTH 14.6 % (11.6-17.2); REVIEW FLAG FINAL; WHITE BLOOD COUNT 8.9 TH/MM3 (4.0-11.0)
--- NOTE | 2016-07-28 08:13 | PD.CARD.PN ---
Subjective Subjective Remarks Dyspneic, minimally improved. CP only with coughing. No PND. Orthopneic. No pleurisy, dizziness, palpitations. Objective Medications Item Value Date Time Furosemide 20 mg 07/28/16 0900 (Lasix) DAILY/PO Potassium Chloride 10 meq 07/28/16 0900 (KCl) DAILY/PO Lisinopril 10 mg 07/25/16 0900 (Prinivil) DAILY/PO 07/27/16 0842 Aspirin 81 mg 07/22/16 0900 (Ecotrin Ec) DAILY/PO 07/27/16 0843 Vital Signs / I&O Vital Signs Date Time Temp Pulse Resp B/P Pulse Ox O2 Delivery O2 Flow Rate FiO2 07/28/16 04:00 97.2 100 19 147/98 98 07/28/16 00:00 97.7 95 19 144/91 96 07/27/16 21:15 Nasal Cannula 2.00 07/27/16 20:30 83 07/27/16 20:00 97.8 96 17 126/86 95 07/27/16 16:00 98.1 92 18 123/74 95 07/27/16 12:00 97.0 88 20 118/79 97 07/27/16 11:33 98 07/27/16 08:48 Room Air I/O 07/27/16 07/27/16 07/27/16 07/28/16 07/28/16 07/28/16 07:00 15:00 23:00 07:00 15:00 23:00 Intake Total 320 ml 242 ml 350 ml 280 ml Output Total 350 ml Balance 320 ml -108 ml 350 ml 280 ml Intake Oral 320 ml 240 ml 240 ml 280 ml IV Total 2 ml 110 ml Output Urine Total 350 ml # Voids 2 3 4 2 # Bowel Movements 1 1 Physical Exam GENERAL: Well developed, well nourished. Mild respiratory distress. HEENT: Jugular venous pressure is normal. CHEST: Diminished breath sounds bases. CARDIAC: Regular rate and rhythm without S3, S4, or murmur. ABDOMEN: Soft, nontender, no hepatosplenomegaly. Bowel sounds present. EXTREMITIES: No clubbing, cyanosis, or edema. Laboratory Laboratory Tests Test 07/28/16 06:54 White Blood Count 8.9 TH/MM3 Red Blood Count 4.89 MIL/MM3 Hemoglobin 14.0 GM/DL Hematocrit 42.8 % Mean Corpuscular Volume 87.5 FL Mean Corpuscular Hemoglobin 28.7 PG Mean Corpuscular Hemoglobin 32.8 % Concent Red Cell Distribution Width 14.6 % Platelet Count 292 TH/MM3 Mean Platelet Volume 8.6 FL Assessment and Plan Problem List: (1) Atypical chest pain Assessment and Plan: CP's related to coughing. No ischemia noted on nuclear stress test imaging. Suspect the nuclear stress test perfusion defects are due to a non-ischemic cardiomyopathy rather than prior myocardial infarction. (2) CHF (congestive heart failure) Assessment and Plan: Slow clinical improvement. Continue JENNIFER-I. Rec start carvedilol. Stressed to the patient the utter importance of abstaining from cocaine abuse. (3) HTN (hypertension) Assessment and Plan: BP's still overall suboptimal. Rec add carvedilol. (4) Dilated cardiomyopathy Assessment and Plan: EF 10-15% by echo this admission. Rec continue JENNIFER-I, oral Lasix. Add carvedilol. Assessment and Plan As above. Will f/u PRN rest of hospital stay. Code Status full code Discussed Condition With patient Problem Qualifiers (1) CHF (congestive heart failure): Qualified Code: I50.21 - Acute systolic congestive heart failure (2) HTN (hypertension): Qualified Code: I10 - Essential hypertension Russell Alberto MD Jul 28, 2016 08:13
[2016-07-28] MEDS: ASPIRIN EC 81 MG TABEC PO SCH (08:18)
[2016-07-28] MEDS: POTASSIUM CHLORIDE 10 MEQ CONTROLLED RELEASE TAB PO SCH (08:18)
[2016-07-28] MEDS: SODIUM CHLORIDE 0.9% FLUSH 5 ML FLUSH FLUSH SCH ×2 (08:19→22:03)
[2016-07-28] MEDS: LISINOPRIL 10 MG TAB PO SCH (08:19)
[2016-07-28] MEDS: SERTRALINE HCL 50 MG TAB PO SCH (08:19)
[2016-07-28] MEDS: FUROSEMIDE 20 MG TAB PO SCH (08:19)
[2016-07-28] MEDS: RESP: ALBUTEROL 2.5 MG/3 ML NEB (PRN) INH (08:35)
[2016-07-28 08:59] LABS: ALKALINE PHOSPHATASE 217 U/L (45-117); ALT (GPT) 158 U/L (12-78); ANION GAP 9 MEQ/L (5-15); AST (GOT) 148 U/L (15-37); BICARBONATE 27.3 MEQ/L (21.0-32.0); BLOOD UREA NITROGEN 22 MG/DL (7-18); CHLORIDE 98 MEQ/L (98-107); GLOMERULAR FILTRATION RATE 67 ML/MIN (>89); POTASSIUM 4.6 MEQ/L (3.5-5.1); SODIUM (NA) 134 MEQ/L (136-145); TOTAL BILIRUBIN ADULT 0.5 MG/DL (0.2-1.0)
--- NOTE | 2016-07-28 09:54 | MB ---
cc: HALLE GUTIERREZ M.D. DATE OF CONSULTATION 07/27/2016 REASON FOR CONSULTATION Lumbar soft tissue chronic fluid collection. HISTORY OF PRESENT ILLNESS A 71-year-old gentleman who was admitted on 07/21/2016 after he presented to the emergency room with complaints of dyspnea for the past four or five days prior to that and generalized weakness. He has a history of IV drug abuse and a remote history of lumbar fusion by Dr. Chan from Orthopedic Surgery and developed a paraspinal infection and had this instrumentation removed in May 2015. He has chronic low back pain along with intermittent numbness and distally in his feet and hands from likely neuropathy. He has an arm wound infection with MRSA as well as positive blood and urine cultures with Staph aureus. MRI scan of the lumbar spine obtained reveals postsurgical changes at L4-S1 levels without any epidural abscess, osteomyelitis or diskitis. There is appears to right paraspinal soft tissue small area of collection which the radiologist also states does not enhance and likely old seroma or hematoma. There is no epidural abscess noted. Infectious Disease believes that this could be infected and therefore a Neurosurgery consultation has been requested. Significantly, he also has severe cardiomyopathy with an ejection fraction of 10-15% and has been followed by Cardiology, undergoing cardiac workup including a stress test. The patient's main concern is that he wants adequate pain control at this point and complains of generalized weakness. PAST MEDICAL HISTORY 1. Remote history of L4-S1 fusion and pedicle screws and subsequent removal about 1-1/2 years ago. 2. IV drug abuse. 3. Hypertension. 4. Diabetes. 5. Hyperlipidemia. 6. Antiphospholipid antibody syndrome. ALLERGIES MORPHINE. CURRENT MEDICATIONS 1. Zoloft. 2. Lasix. 3. Prinivil. 4. Vancomycin IV. 5. Ceftriaxone. 6. Xanax. 7. Albuterol. 8. Ibuprofen. 9. Potassium chloride. 10. Aspirin. 11. Lovenox. LABORATORY STUDIES White blood cell count 8.1, hemoglobin 14.6, platelet count 264. PT 15.4, INR 1.4, PTT 29.5. Sodium 138, potassium 4.8, BUN 18, creatinine 1.007, glucose 253. Toxicology screen is positive for cocaine and amphetamines. PHYSICAL EXAMINATION VITALS: Temperature 96.2, pulse 101, respiratory rate 20, blood pressure 134/91, oxygen saturation 97% on room air. HEAD: Normocephalic, atraumatic. NECK: Supple. CHEST: Clear to incision bilaterally. HEART: Regular rate and rhythm, normal S1 and S2. ABDOMEN: Soft, nontender. EXTREMITIES: No cyanosis or edema. NEUROLOGIC: He is awake, alert. Cranial nerves are intact. Motor strength in the upper and lower extremities is 5/5. He appreciates light touch sensation. Negative Babinski. He has a well-healed lumbar incision site with no tenderness to palpation nor induration nor erythema. IMPRESSION 1. Remote history of lumbar L4-S1 fusion with removal of infected hardware 1-1/2 years ago. There is no current indication for any epidural abscess or osteomyelitis with diskitis. There is a paraspinal soft tissue fluid collection which likely is an old seroma as there is no enhancement and the radiologist concurs with this impression. 2. Forearm infection with associated bacteremia and urinary tract infection in a patient with history of IV drug abuse. 3. Severe cardiomyopathy which ejection fraction of 10-15%. PLAN The patient does not require any neurosurgical intervention nor is he a candidate for any surgery given his very poor cardiac function. RECOMMENDATIONS Recommend management of his infectious issues by Infectious Disease along with pain control. Neurosurgery will sign off MD PETRA Ng/SKY /3:26 PM /9:41 AM
[2016-07-28] MEDS: CARVEDILOL 6.25 MG TAB PO SCH ×2 (10:09→22:03)
--- NOTE | 2016-07-28 12:20 | HHI.FPPN ---
Subjective Remarks No events overnight. Afebrile, vitals stable. Patient does appear more active this morning. OOB ambulating. States he still has pain in his low back after his IR drainage. Denies any fevers or chills. (Marcos Cameron MD R1) Objective Vitals Vital Signs Date Time Temp Pulse Resp B/P Pulse Ox O2 Delivery O2 Flow Rate FiO2 07/28/16 08:38 98 Nasal Cannula 3.00 07/28/16 04:00 97.2 100 19 147/98 98 07/28/16 00:00 97.7 95 19 144/91 96 07/27/16 21:15 Nasal Cannula 2.00 07/27/16 20:30 83 07/27/16 20:00 97.8 96 17 126/86 95 07/27/16 16:00 98.1 92 18 123/74 95 I/O 07/27/16 07/27/16 07/27/16 07/28/16 07/28/16 07/28/16 07:00 15:00 23:00 07:00 15:00 23:00 Intake Total 320 ml 242 ml 350 ml 280 ml Output Total 350 ml Balance 320 ml -108 ml 350 ml 280 ml Intake Oral 320 ml 240 ml 240 ml 280 ml IV Total 2 ml 110 ml Output Urine Total 350 ml # Voids 2 3 4 2 # Bowel Movements 1 1 (Marcos Cameron MD R1) Result Diagram: 07/28/16 0654 07/28/16 0654 Objective Remarks GEN: Thin male in no acute distress. Sitting up on edge of bed. CV: Regular rate and rhythm without obvious murmurs. LUNGS: Clear to auscultation bilaterally. Normal respiratory effort. No wheezes , rales, rhonchi. ABDOMEN: soft, nontender, nondistended, normal BS. No guarding or rebound tenderness. EXT: No edema. No calf tenderness. NEURO/PSYCH: Awake, alert. Appropriate insight and judgment. Normal speech ( Marcos Cameron MD R1) A/P Assessment and Plan 71yo male with PMH significant for IV drug use. Admitted for generalized malaise and endocarditis evaluation. Discharge Planning Pending ID recommendations and treatment. Time course unknown sdw Dr. Loaiza (Marcos Cameron MD R1) Assessment and Plan Patient was seen and examined with resident team. Case was discussed and reviewed with the resident team. Physician agrees with plan of care is discussed with me and documented in the resident note. (Neil Loaiza MD) Problem List: (1) Bacteremia Status: Acute Plan: 1 of 3 blood cultures on 07/21/16 was positive for staph sp coagulase- negative while remaining blood cultures were negative. Likely due to contamination vs bacteremia -Repeat blood cultures drawn on 07/23 negative 5 day -I&D of left wrist abscess performed on 07/23 * wound culture: MRSA -Hepatitis and HIV negative -Repeat echo: EF of 15-20%. No endocarditis seen -MRI of lumbar spine: elongated fluid collections in the posterior paraspinal soft tissues on the right and left without MRI features convincing for abscess. These are presumably seroma or hematomas. Also no evidence of osteomyelitis. -Back fluid collection: fluid culture no growth after 48 hours; no fungal elements; acid fast stain and mycobacterial culture still pending ID consulted: appreciate recommendations * CT abdomen: No abscesses seen * Continue Ceftriaxone (started 07/21) and vancomycin (started 07/22) * No PICC till cleared by ID Neurosurgery consulted: * Patient not requiring any neurosurgical intervention at this time and would not be a candidate for surgery given poor cardiac function * Recommending management per ID and pain control Interventional Radiology: * 1-2 cc aspirated from small paraspinal collections on the left and right sides of the lower back (2) CHF (congestive heart failure) Status: Acute Plan: Initially presented for chest pain and shortness of breath. Echo from 2015 showed an EF of 55-60%. BNP on admission was significantly elevated. Suspect CHF contributing to symptoms of chronic malaise -ACS evaluation negative -Repeat echo with an EF of 15-20% -Cardiac telemetry Cardiology consulted: Appreciate recommendations * Nuclear stress test showing ventriculomegaly with large fixed perfusion abnormality and no evidence of stress-induced reversible abnormalities. Severe global hypokinesia with 14% ejection fraction. * lisinopril to 10 mg daily * Refrain from beta blockers at this time * Probably non-ischemic etiology * OK to dc from a cardiac standpoint Imaging: * CXR: Blunting of both costophrenic angles with some degree of effusion. Some focal increased interstitial markings the right lower lung suggesting some asymmetric basilar congestion or volume overload. No confluent infiltrate. * CTA: No evidence of PE. Bilateral effusions left basilar atelectasis. Medications: * decreased Lasix 40 mg daily to 20 mg po daily * decresed KCL 20meq daily to 10meq po daily * Aspirin 81mg daily * Lisinopril 10 mg po daily (3) UTI (urinary tract infection) Status: Acute Plan: Urine culture growing Staph Aureus > 100,000 cfus that is pansensitive -Vancomycin started 07/22- -Rocephin started 07/21- (4) DM (diabetes mellitus) Status: Acute Plan: -Continue accuchecks ACHS, low dose sliding scale -Metformin held due to need for contrast studies. Anticipate discharging on medication (5) Polysubstance abuse Status: Chronic Plan: Patient admits to marijuana, Dilaudid, cocaine, methamphetamine drug use. UDS positive for cocaine and methamphetamine (6) Nutrition, metabolism, and development symptoms Status: Acute Plan: Diet: Diabetic Fluids: None Electrolytes: unremarkable, continue to monitor DVT prophylaxis: Lovenox HELD for procedure, resume 07/28 GI prophylaxis: Not indicated Anxiety: Xanax 0.25mg PRN, Zoloft started 07/25 (Marcos Cameron MD R1) Problem Qualifiers (1) CHF (congestive heart failure): Qualified Code: I50.21 - Acute systolic congestive heart failure (2) DM (diabetes mellitus): Qualified Code: E11.9 - Type 2 diabetes mellitus without complication, without long-term current use of insulin Marcos Cameron MD R1 Jul 28, 2016 12:20 Neil Loaiza MD Jul 29, 2016 13:29
[2016-07-28] MEDS: cefTRIAXone INJ 2,000 MG in SODIUM CHLORIDE 0.9% INJ 100 ML IV SCH (16:22)
[2016-07-28] MEDS: ENOXAPARIN SODIUM 40 MG/0.4 ML SYRINGE SQ SCH (16:23)
--- NOTE | 2016-07-28 18:15 | HHI.IDPN ---
Subjective Subjective Remarks is a 71-year-old male with a PMH significant for IV drug use, back surgery, MSSA hardware infection followed by hardware removal. Currently admitted with back pain, multiple abscesses with different organisms in cultures. Patient is known IVDA and this can be seen in such cases. Overnight events reviewed, No fever No rash No diarrhea Skin lesions improving. Antibiotics Ceftriaxone IV Vanco IV Lines Line sites with no e/o infection. Past Medical History reviewed. Allergies: Coded Allergies: Morphine (Verified Allergy, Severe, Itching, 07/21/16) *MDRO Multi-Drug Resistant Organism (Verified Adverse Reaction, Unknown, ) 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/16 Objective . Vital Signs Date Time Temp Pulse Resp B/P Pulse Ox O2 Delivery O2 Flow Rate FiO2 07/28/16 16:00 97.3 84 20 118/73 97 07/28/16 13:54 95 07/28/16 12:00 97.3 87 20 124/77 97 07/28/16 08:38 98 Nasal Cannula 3.00 07/28/16 08:25 Nasal Cannula 2.00 07/28/16 08:00 97.4 93 20 144/90 98 07/28/16 04:00 97.2 100 19 147/98 98 07/28/16 00:00 97.7 95 19 144/91 96 07/27/16 21:15 Nasal Cannula 2.00 07/27/16 20:30 83 07/27/16 20:00 97.8 96 17 126/86 95 07/27/16 07/27/16 07/28/16 15:00 23:00 07:00 Intake Total 242 ml 350 ml 280 ml Output Total 350 ml Balance -108 ml 350 ml 280 ml Intake Oral 240 ml 240 ml 280 ml IV Total 2 ml 110 ml Output Urine Total 350 ml # Voids 3 4 2 # Bowel Movements 1 1 . Laboratory Tests Test 07/27/16 07/28/16 07:30 06:54 White Blood Count 7.5 TH/MM3 8.9 TH/MM3 Red Blood Count 4.78 MIL/MM3 4.89 MIL/MM3 Hemoglobin 13.6 GM/DL 14.0 GM/DL Hematocrit 42.4 % 42.8 % Mean Corpuscular Volume 88.8 FL 87.5 FL Mean Corpuscular Hemoglobin 28.4 PG 28.7 PG Mean Corpuscular Hemoglobin 32.0 % 32.8 % Concent Red Cell Distribution Width 14.7 % 14.6 % Platelet Count 310 TH/MM3 292 TH/MM3 Mean Platelet Volume 8.8 FL 8.6 FL Neutrophils (%) (Auto) 78.5 % Lymphocytes (%) (Auto) 14.3 % Monocytes (%) (Auto) 6.2 % Eosinophils (%) (Auto) 0.4 % Basophils (%) (Auto) 0.6 % Neutrophils # (Auto) 5.9 TH/MM3 Lymphocytes # (Auto) 1.1 TH/MM3 Monocytes # (Auto) 0.5 TH/MM3 Eosinophils # (Auto) 0.0 TH/MM3 Basophils # (Auto) 0.0 TH/MM3 CBC Comment DIFF FINAL Differential Comment Laboratory Tests Test 07/27/16 07/28/16 07:30 06:54 Sodium Level 133 MEQ/L 134 MEQ/L Potassium Level 4.7 MEQ/L 4.6 MEQ/L Chloride Level 99 MEQ/L 98 MEQ/L Carbon Dioxide Level 23.7 MEQ/L 27.3 MEQ/L Anion Gap 10 MEQ/L 9 MEQ/L Blood Urea Nitrogen 22 MG/DL 22 MG/DL Creatinine 1.02 MG/DL 1.09 MG/DL Estimat Glomerular Filtration 72 ML/MIN 67 ML/MIN Rate Random Glucose 238 MG/DL 203 MG/DL Calcium Level 8.5 MG/DL 8.8 MG/DL Total Bilirubin 0.5 MG/DL Aspartate Amino Transf 148 U/L (AST/SGOT) Alanine Aminotransferase 158 U/L (ALT/SGPT) Alkaline Phosphatase 217 U/L Total Protein 6.6 GM/DL Albumin 2.6 GM/DL Microbiology Date/Time Procedure Status Source Growth 07/26/16 17:02 Gram Stain - Final Resulted Fluid Other 07/26/16 17:02 Body Fluid Culture - Preliminary Resulted Fluid Other NO GROWTH IN 48 HOURS. 07/26/16 17:02 Acid Fast Stain Received Fluid Other Pending 07/26/16 17:02 Mycobacterial Culture Received Fluid Other Pending 07/26/16 17:02 Fungal Smear - Final Resulted Fluid Other NO FUNGAL ELEMENTS SEEN. 07/26/16 17:02 Fungal Culture Resulted Fluid Other Pending 07/26/16 17:10 Gram Stain - Final Resulted Fluid Other 07/26/16 17:10 Body Fluid Culture - Preliminary Resulted Fluid Other NO GROWTH IN 48 HOURS. 07/26/16 17:10 Acid Fast Stain Received Fluid Other Pending 07/26/16 17:10 Mycobacterial Culture Received Fluid Other Pending 07/26/16 17:10 Fungal Smear - Final Resulted Fluid Other NO FUNGAL ELEMENTS SEEN. 07/26/16 17:10 Fungal Culture Resulted Fluid Other Pending Imaging Last Impressions Myocardial Perfusion Scan Nuc Med 07/25/16 0000 Signed Impressions: Service Date/Time: Monday, July 25, 2016 10:43 - CONCLUSION: Ventriculomegaly with large fixed perfusion abnormality and no evidence of stress-induced reversible abnormalities. Severe global hypokinesia with 14%% ejection fraction. RISK CATEGORY: High (>3%% Annual Mortality Rate) Brown Tejeda MD Lumbar Spine MRI 07/24/16 0000 Signed Impressions: Service Date/Time: July 18:25 - CONCLUSION: 1. Previous surgery at L4/L5 and L5/S1 with subsequent hardware removal. There are elongated fluid collections in the posterior paraspinous soft tissues on the right and left without MRI features convincing for abscess. These are presumably seromas or old hematomas. Also no evidence of osteomyelitis.. 2. Normal thecal sac and epidural space. 3. No foraminal or spinal stenosis at any level. 4. Mild bilateral facet osteoarthritis and nonspecific synovitis at L3/L4. Kwesi Hinojosa MD Abdomen/Pelvis CT 07/23/16 0000 Signed Impressions: Service Date/Time: Saturday, July 23, 2016 17:42 - CONCLUSION: 1. Diverticulosis without diverticulitis. 2. Minimal ascites. 3. Dilated stomach. 4. A few punctate of second bilateral renal calculi. 5. Small bilateral pleural effusions. 6. No abscess seen. James Wyatt MD Chest X-Ray 07/21/16 1002 Signed Impressions: Service Date/Time: Thursday, July 21, 2016 10:01 - CONCLUSION: 1. Blunting of both costophrenic angles, right greater than left suggesting some degree of effusion. 2. In addition, there is some focal increased interstitial markings in the right lower lung field suggesting some asymmetric vascular congestion or volume overload. No confluent infiltrate. 3. Dextroscoliosis of the thoracolumbar spine with associated degenerative changes Nikos Kaur MD CT Angiography 07/21/16 0000 Signed Impressions: Service Date/Time: Thursday, July 21, 2016 11:06 - CONCLUSION: 1. No evidence of pulmonary embolism. 2. Bilateral effusions and left basilar atelectasis Amos Toledo MD Physical Exam GENERAL: This is a well-nourished, well-developed patient, in no apparent distress. SKIN: No rashes, ecchymoses or lesions. Cool and dry. HEAD: Atraumatic. Normocephalic. No temporal or scalp tenderness. EYES: Pupils equal round and reactive. Extraocular motions intact. No scleral icterus. No injection or drainage. ENT: Nose without bleeding, purulent drainage or septal hematoma. Throat without erythema, tonsillar hypertrophy or exudate. Uvula midline. Airway patent. NECK: Trachea midline. Supple, nontender, no meningeal signs. CARDIOVASCULAR: HS audible. RESPIRATORY: Clear to auscultation. Breath sounds equal bilaterally. GASTROINTESTINAL: Abdomen soft, non-tender, nondistended. MUSCULOSKELETAL: Rt forearm with small abscess 2x2 cm with induration but no fluctuance. Left forearm at wrist level lanced indurated area(prior abscess site per patient ) NEUROLOGICAL: Awake and alert. Grossly nonfocal. Psych: cooperative IV line sites with no e/o infection. Assessment & Plan Remarks Coag neg staph bacteremia in pt with IVDA and prior Spine Osteomyelitis. MSSA in urine: ? translocation in urine from Staph bacteremia. Possible Endocarditis and or Spinal hardware infection. Prior MSSA hardware infection s/p removal. Bilateral forearm abscess (left at wrist level, right in mid forearm) IVDA ongoing. Abnormal Liver function tests: ? sepsis vs hepatitis related. Recs HIV and hepatitis profile negative. Follow cultures Follow pathology report of aspirate if any. Had requested for IR to send it. Continue Ceftriaxone IV change dose to 2 gm IV q12hrs for epidural abscess and for endocarditis. Continue Vanco IV(target 15-20) No PICC till cleared by ID. d/w FM resident: await final cultures, await pathology. Will review images with Neurosurgery and Radiology . Likely will need inpatient IV antibiotics. d.w case mment pt is homeless and IVDA. Will either need placement in hotel, rehab or have to complete antibiotics at [facility]. Alina Davis MD Jul 28, 2016 18:15 2. AFB stain and culture 3. Fungal stain and culture. Anthonyw to order these and coordinate with IR and . Alina Davis MD Jul 28, 2016 18:15
[2016-07-28] MEDS: ALPRAZolam 0.25 MG TAB PO PRN (22:03)
[2016-07-29] VITALS (10 sets, daily range): BP systolic 88–116; BP diastolic 56–73; PULSE 62–83; RESP 12–18; TEMP 97.2–98.2; O2SAT 93–99
[2016-07-29] MEDS: INSULIN ASPART SUPPLEMENTAL SCALE SQ SCH ×4 (05:44→21:00)
[2016-07-29] MEDS: VANCOMYCIN INJ 1,250 MG in SODIUM CHLOR 0.9% 250 ML INJ 250 ML IV SCH ×2 (05:44→18:06)
[2016-07-29 08:05] LABS: BICARBONATE 30.3 MEQ/L (21.0-32.0)
[2016-07-29 08:08] LABS: POTASSIUM 5.5 MEQ/L (3.5-5.1)
[2016-07-29] MEDS: SODIUM CHLORIDE 0.9% FLUSH 5 ML FLUSH FLUSH SCH ×2 (08:34→21:11)
[2016-07-29] MEDS: CARVEDILOL 6.25 MG TAB PO SCH ×2 (08:34→21:10)
[2016-07-29] MEDS: IBUPROFEN 600 MG TAB PO PRN ×3 (08:34→21:11)
[2016-07-29] MEDS: FUROSEMIDE 20 MG TAB PO SCH (08:34)
[2016-07-29] MEDS: ASPIRIN EC 81 MG TABEC PO SCH (08:34)
[2016-07-29] MEDS: LISINOPRIL 10 MG TAB PO SCH (08:34)
[2016-07-29] MEDS: SERTRALINE HCL 50 MG TAB PO SCH (08:34)
--- NOTE | 2016-07-29 08:42 | HHI.FPPN ---
Subjective Remarks No events overnight. Afebrile, vitals are stable. This morning he reports he has been feeling short of breath when OOB or standing up for too long. Continues to report low back pain in the area of IR drainage. Denies any fevers or chills, or shortness of breath. Objective Vitals Vital Signs Date Time Temp Pulse Resp B/P Pulse Ox O2 Delivery O2 Flow Rate FiO2 07/29/16 04:55 98.0 77 18 116/65 98 07/29/16 00:25 97.8 83 18 112/73 98 07/28/16 22:11 98 Nasal Cannula 2.00 07/28/16 22:04 84 07/28/16 21:16 Nasal Cannula 2.00 07/28/16 20:40 97.9 90 16 119/59 97 07/28/16 16:00 97.3 84 20 118/73 97 07/28/16 13:54 95 07/28/16 12:00 97.3 87 20 124/77 97 07/28/16 08:38 98 Nasal Cannula 3.00 I/O 07/28/16 07/28/16 07/28/16 07/29/16 07/29/16 07/29/16 07:00 15:00 23:00 07:00 15:00 23:00 Intake Total 280 ml 112 ml 50 ml Output Total 250 ml Balance 280 ml -138 ml 50 ml Intake Oral 280 ml IV Total 112 ml 50 ml Output Urine Total 250 ml # Voids 2 1 # Bowel Movements 1 0 0 Result Diagram: 07/28/16 0654 07/29/16 0611 Objective Remarks GEN: Thin male in no acute distress. Lying comfortably in bed. CV: Regular rate and rhythm without obvious murmurs. LUNGS: Clear to auscultation bilaterally. Normal respiratory effort. No wheezes , rales, rhonchi. ABDOMEN: Soft, nontender, nondistended, normal BS. No guarding or rebound tenderness. EXT: No edema. No calf tenderness. NEURO/PSYCH: Awake, alert. Appropriate insight and judgment. Normal speech. A/P Assessment and Plan 71yo male with PMH significant for IV drug use. Admitted for generalized malaise and endocarditis evaluation. Discharge Planning Pending ID recommendations and treatment. Time course unknown sdw Dr. Santiago wdw Dr. Loaiza Problem List: (1) Bacteremia Status: Acute Plan: 1 of 3 blood cultures on 07/21/16 was positive for staph sp coagulase- negative while remaining blood cultures were negative. Likely due to contamination vs bacteremia -Repeat blood cultures drawn on 07/23 negative 5 day -I&D of left wrist abscess performed on 07/23 * wound culture: MRSA -Hepatitis and HIV negative -Repeat echo: EF of 15-20%. No endocarditis seen -MRI of lumbar spine: elongated fluid collections in the posterior paraspinal soft tissues on the right and left without MRI features convincing for abscess. These are presumably seroma or hematomas. Also no evidence of osteomyelitis. -Back fluid collection: fluid culture no growth after 48 hours; no fungal elements; acid fast stain, mycobacterial culture, and fungal culture still pending ID consulted: appreciate recommendations * CT abdomen: No abscesses seen * Continue Ceftriaxone (started 07/21) and vancomycin (started 07/22) * No PICC till cleared by ID * Await final results of cultures * Patient will likely need inpatient IV antibiotics unless CM can place in hotel or rehab facility Neurosurgery consulted: * Patient not requiring any neurosurgical intervention at this time and would not be a candidate for surgery given poor cardiac function * Recommending management per ID and pain control Interventional Radiology: * 1-2 cc aspirated from small paraspinal collections on the left and right sides of the lower back (2) CHF (congestive heart failure) Status: Acute Plan: Initially presented for chest pain and shortness of breath. Echo from 2015 showed an EF of 55-60%. BNP on admission was significantly elevated. Suspect CHF contributing to symptoms of chronic malaise -ACS evaluation negative -Repeat echo with an EF of 15-20% -Discontinue cardiac telemetry Cardiology consulted: Appreciate recommendations * Nuclear stress test showing ventriculomegaly with large fixed perfusion abnormality and no evidence of stress-induced reversible abnormalities. Severe global hypokinesia with 14% ejection fraction. * Lisinopril 10 mg po daily * Started Coreg 6.25 mg po q12h * Probably non-ischemic etiology * OK to dc from a cardiac standpoint Imaging: * CXR: Blunting of both costophrenic angles with some degree of effusion. Some focal increased interstitial markings the right lower lung suggesting some asymmetric basilar congestion or volume overload. No confluent infiltrate. * CTA: No evidence of PE. Bilateral effusions left basilar atelectasis. Medications: * Lasix 20 mg po daily * KCL 10meq po daily * Aspirin 81mg daily * Lisinopril 10 mg po daily * Coreg 6.25 mg po q12h (3) UTI (urinary tract infection) Status: Acute Plan: Urine culture growing Staph Aureus > 100,000 cfus that is pansensitive -Vancomycin started 07/22- -Rocephin started 07/21- (4) DM (diabetes mellitus) Status: Acute Plan: -Continue accuchecks ACHS, low dose sliding scale -Metformin held due to need for contrast studies. Anticipate discharging on medication -Will add basal insulin if needed (5) Polysubstance abuse Status: Chronic Plan: Patient admits to marijuana, Dilaudid, cocaine, methamphetamine drug use. UDS positive for cocaine and methamphetamine (6) Nutrition, metabolism, and development symptoms Status: Acute Plan: Nutrition: Diabetic diet Fluids: None Electrolytes: K+ 5.5 however slight hemolysis noted, hold KCl today, continued to trend BMP DVT prophylaxis: Lovenox resumed 07/28 GI prophylaxis: Not indicated Anxiety: Xanax 0.25mg PRN, Zoloft 50 mg po daily started 07/25 Problem Qualifiers (1) CHF (congestive heart failure): Qualified Code: I50.21 - Acute systolic congestive heart failure (2) DM (diabetes mellitus): Qualified Code: E11.9 - Type 2 diabetes mellitus without complication, without long-term current use of insulin Marcos Cameron MD R1 Jul 29, 2016 08:42
[2016-07-29] MEDS: ENOXAPARIN SODIUM 40 MG/0.4 ML SYRINGE SQ SCH (13:32)
[2016-07-29] MEDS: cefTRIAXone INJ 2,000 MG in SODIUM CHLORIDE 0.9% INJ 100 ML IV SCH (16:23)
[2016-07-29] MEDS: RESP: ALBUTEROL 2.5 MG/3 ML NEB (PRN) INH (20:21)
[2016-07-29] MEDS ORDERED: INSULIN DETEMIR 100 UNITS/ML VIAL SQ SCH (21:00)
[2016-07-30 04:50] VITALS: BP 94/54; PULSE 68; RESP 18; TEMP 97.6; O2SAT 95
[2016-07-30] MEDS: VANCOMYCIN INJ 1,250 MG in SODIUM CHLOR 0.9% 250 ML INJ 250 ML IV SCH (05:23)
[2016-07-30] MEDS: INSULIN ASPART SUPPLEMENTAL SCALE SQ SCH ×4 (05:42→21:32)
[2016-07-30 08:00] VITALS: BP 108/59; PULSE 66; RESP 24; TEMP 97.3; O2SAT 97; O2SAT 98
--- NOTE | 2016-07-30 08:28 | HHI.FPPN ---
Subjective Remarks No acute events overnight. BP this morning has been low with SBP around 90s. Patient is otherwise unchanged. Denies any new complaints. Does endorse this sternal chest pain that has not changed in character since hospitalization. Objective Vitals Vital Signs Date Time Temp Pulse Resp B/P Pulse Ox O2 Delivery O2 Flow Rate FiO2 07/30/16 04:50 97.6 68 18 94/54 95 07/29/16 23:50 97.2 62 18 88/57 99 07/29/16 21:05 97.3 69 18 107/62 93 07/29/16 21:03 Nasal Cannula 2.00 07/29/16 20:22 98 Nasal Cannula 2.00 07/29/16 16:00 98.2 71 16 96/62 99 07/29/16 12:00 97.3 67 12 96/67 97 07/29/16 10:49 97 Nasal Cannula 2.00 I/O 07/29/16 07/29/16 07/29/16 07/30/16 07/30/16 07/30/16 07:00 15:00 23:00 07:00 15:00 23:00 Intake Total 50 ml 732 ml 748 ml 712 ml Balance 50 ml 732 ml 748 ml 712 ml Intake Oral 480 ml 240 ml 200 ml IV Total 50 ml 252 ml 508 ml 512 ml # Voids 1 6 3 4 # Bowel Movements 0 1 0 0 Result Diagram: 07/28/16 0654 07/29/16 0611 Objective Remarks GEN: Thin male in no acute distress. Lying comfortably in bed. SKIN: Erythematous papules and a circular pattern on the mid chest at the site of reported chest pain. No vesicles present and not in a dermatome pattern CV: Regular rate and rhythm without obvious murmurs. LUNGS: Good air movement bilaterally but with fine bibasilar crackles. Normal respiratory effort. No wheezes, rales, rhonchi. EXT: No edema. No calf tenderness. NEURO/PSYCH: Awake, alert. Appropriate insight and judgment. Normal speech. A/P Assessment and Plan 71yo male with PMH significant for IV drug use. Admitted for generalized malaise and endocarditis evaluation. Discharge Planning Pending ID recommendations and treatment. Time course unknown allyw Dr. Rakesh Loaiza Problem List: (1) Bacteremia Status: Acute Plan: Concern for endocarditis will need treatment x6 wks due to history of osteomyelitis and IVD use. -1 of 3 blood cultures on 07/21/16 was positive for staph sp coagulase-negative while remaining blood cultures were negative. Likely due to contamination vs bacteremia * Repeat blood cultures drawn on 07/23 negative 5 day -I&D of left wrist abscess wound culture: MRSA -Hepatitis and HIV negative -Repeat echo: EF of 15-20%. No endocarditis seen -MRI of lumbar spine: elongated fluid collections in the posterior paraspinal soft tissues on the right and left without MRI features convincing for abscess. These are presumably seroma or hematomas. Also no evidence of osteomyelitis. -Back fluid collection: fluid culture no growth after 72 hours; no fungal elements; acid fast stain, mycobacterial culture, and fungal culture still pending ID consulted: appreciate recommendations * CT abdomen: No abscesses seen * Continue Ceftriaxone (started 07/21) and vancomycin (started 07/22) * No PICC till cleared by ID * Await final results of cultures * CM has been able set to up outpatient IV ABX at [facility] Neurosurgery consulted: * Patient not requiring any neurosurgical intervention at this time and would not be a candidate for surgery given poor cardiac function * Recommending management per ID and pain control Interventional Radiology: * 1-2 cc aspirated from small paraspinal collections on the left and right sides of the lower back (2) MILLER (acute kidney injury) Status: Acute Plan: Found to have an acute increase in Cr from a baseline around 1.0 and is now 1.5 -Concern for acute interstitial nephritis from Vancomycin -NS @84 x1 bag to minimize risk for fluid overload due to CHF -urine eosinophils ordered -HOLD NSAIDs at this time (3) CHF (congestive heart failure) Status: Chronic Plan: Initially presented for chest pain and shortness of breath. Echo from 2015 showed an EF of 55-60%. BNP on admission was significantly elevated. Suspect CHF contributing to symptoms of chronic malaise -ACS evaluation negative -Repeat echo with an EF of 15-20% Cardiology consulted: Appreciate recommendations * Nuclear stress test showing ventriculomegaly with large fixed perfusion abnormality and no evidence of stress-induced reversible abnormalities. Severe global hypokinesia with 14% ejection fraction. * Lisinopril 10 mg po daily-decreased lisinopril to 5mg daily due to hypotension * Started Coreg 6.25 mg po [id number] coreg to 3.125mg BID due to hypotension * Probably non-ischemic etiology * OK to dc from a cardiac standpoint Imaging: * CXR: Blunting of both costophrenic angles with some degree of effusion. Some focal increased interstitial markings the right lower lung suggesting some asymmetric basilar congestion or volume overload. No confluent infiltrate. * CTA: No evidence of PE. Bilateral effusions left basilar atelectasis. Medications: * HOLD Lasix 20 mg po daily * HOLD KCL 10meq po daily * Aspirin 81mg daily * Lisinopril 5 mg po daily * Coreg 3.125 mg po q12h (4) UTI (urinary tract infection) Status: Acute Plan: Urine culture growing Staph Aureus > 100,000 cfus that is pansensitive -Vancomycin started 07/22- -Rocephin started 07/21- (5) DM (diabetes mellitus) Status: Acute Plan: -Continue accuchecks ACHS, low dose sliding scale -Metformin held due to need for contrast studies. Anticipate discharging on medication -Will add basal insulin if needed (6) Polysubstance abuse Status: Chronic Plan: Patient admits to marijuana, Dilaudid, cocaine, methamphetamine drug use. UDS positive for cocaine and methamphetamine (7) Nutrition, metabolism, and development symptoms Status: Acute Plan: Nutrition: Diabetic diet Fluids: ns @84 X1 BAG Electrolytes: K+ 5.5 however slight hemolysis noted, hold KCl , continued to trend BMP DVT prophylaxis: Lovenox resumed 07/28 GI prophylaxis: Not indicated Anxiety: Xanax 0.25mg PRN, Zoloft 50 mg po daily started 07/25 Problem Qualifiers (1) CHF (congestive heart failure): Qualified Code: I50.21 - Acute systolic congestive heart failure (2) DM (diabetes mellitus): Qualified Code: E11.9 - Type 2 diabetes mellitus without complication, without long-term current use of insulin Kelsi Santiago MD R2 Jul 30, 2016 08:28
[2016-07-30] MEDS: SODIUM CHLORIDE 0.9% FLUSH 5 ML FLUSH FLUSH SCH ×2 (08:34→21:00)
[2016-07-30] MEDS: LISINOPRIL 5 MG TAB PO SCH (08:35)
[2016-07-30] MEDS: ASPIRIN EC 81 MG TABEC PO SCH (08:35)
[2016-07-30] MEDS: FUROSEMIDE 20 MG TAB PO SCH (08:35)
[2016-07-30] MEDS: CARVEDILOL 6.25 MG TAB PO SCH (08:35)
[2016-07-30] MEDS: SERTRALINE HCL 50 MG TAB PO SCH (08:35)
[2016-07-30] MEDS: IBUPROFEN 600 MG TAB PO PRN ×2 (08:35→15:51)
[2016-07-30 10:39] LABS: BICARBONATE 20.9 MEQ/L (21.0-32.0)
[2016-07-30 10:40] LABS: POTASSIUM 5.5 MEQ/L (3.5-5.1)
[2016-07-30] MEDS: ENOXAPARIN SODIUM 40 MG/0.4 ML SYRINGE SQ SCH (11:41)
[2016-07-30 12:00] VITALS: BP 100/60; PULSE 69; RESP 20; TEMP 97.2; O2SAT 95
[2016-07-30] MEDS: cefTRIAXone INJ 2,000 MG in SODIUM CHLORIDE 0.9% INJ 100 ML IV SCH (15:51)
[2016-07-30 16:00] VITALS: BP 102/59; PULSE 69; RESP 20; TEMP 97.6; O2SAT 96
[2016-07-30] MEDS: SODIUM CHLOR 0.9% 1000 ML INJ 1,000 ML IV SCH (17:25)
--- NOTE | 2016-07-30 18:25 | HHI.IDPN ---
Subjective Subjective Remarks is a 71-year-old male with a PMH significant for IV drug use, back surgery, MSSA hardware infection followed by hardware removal. Currently admitted with back pain, multiple abscesses with different organisms in cultures. Patient is known IVDA and this can be seen in such cases. Overnight events reviewed, No fever No rash No diarrhea Skin lesions improving. Antibiotics Ceftriaxone IV Vanco IV Lines Line sites with no e/o infection. Past Medical History reviewed. Allergies: Coded Allergies: Morphine (Verified Allergy, Severe, Itching, 07/21/16) *MDRO Multi-Drug Resistant Organism (Verified Adverse Reaction, Unknown, ) 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/16 Objective . Vital Signs Date Time Temp Pulse Resp B/P Pulse Ox O2 Delivery O2 Flow Rate FiO2 07/30/16 16:00 97.6 69 20 102/59 96 07/30/16 12:00 97.2 69 20 100/60 95 07/30/16 08:30 Nasal Cannula 2.00 07/30/16 08:00 97.3 66 24 108/59 98 07/30/16 08:00 97 21 07/30/16 04:50 97.6 68 18 94/54 95 07/29/16 23:50 97.2 62 18 88/57 99 07/29/16 21:05 97.3 69 18 107/62 93 07/29/16 21:03 Nasal Cannula 2.00 07/29/16 20:22 98 Nasal Cannula 2.00 07/29/16 07/29/16 07/30/16 15:00 23:00 07:00 Intake Total 732 ml 748 ml 712 ml Balance 732 ml 748 ml 712 ml Intake Oral 480 ml 240 ml 200 ml IV Total 252 ml 508 ml 512 ml # Voids 6 3 4 # Bowel Movements 1 0 0 . Laboratory Tests Test 07/29/16 07/30/16 06:11 09:17 Sodium Level 136 MEQ/L 134 MEQ/L Potassium Level 5.5 MEQ/L 5.5 MEQ/L Chloride Level 100 MEQ/L 99 MEQ/L Carbon Dioxide Level 30.3 MEQ/L 20.9 MEQ/L Anion Gap 6 MEQ/L 14 MEQ/L Blood Urea Nitrogen 22 MG/DL 35 MG/DL Creatinine 1.09 MG/DL 1.51 MG/DL Estimat Glomerular Filtration 67 ML/MIN 46 ML/MIN Rate Random Glucose 205 MG/DL 164 MG/DL Calcium Level 9.1 MG/DL 9.4 MG/DL Imaging Last Impressions Myocardial Perfusion Scan Nuc Med 07/25/16 0000 Signed Impressions: Service Date/Time: Monday, July 25, 2016 10:43 - CONCLUSION: Ventriculomegaly with large fixed perfusion abnormality and no evidence of stress-induced reversible abnormalities. Severe global hypokinesia with 14%% ejection fraction. RISK CATEGORY: High (>3%% Annual Mortality Rate) Brown Tejeda MD Lumbar Spine MRI 07/24/16 0000 Signed Impressions: Service Date/Time: July 18:25 - CONCLUSION: 1. Previous surgery at L4/L5 and L5/S1 with subsequent hardware removal. There are elongated fluid collections in the posterior paraspinous soft tissues on the right and left without MRI features convincing for abscess. These are presumably seromas or old hematomas. Also no evidence of osteomyelitis.. 2. Normal thecal sac and epidural space. 3. No foraminal or spinal stenosis at any level. 4. Mild bilateral facet osteoarthritis and nonspecific synovitis at L3/L4. Kwesi Hinojosa MD Abdomen/Pelvis CT 07/23/16 0000 Signed Impressions: Service Date/Time: Saturday, July 23, 2016 17:42 - CONCLUSION: 1. Diverticulosis without diverticulitis. 2. Minimal ascites. 3. Dilated stomach. 4. A few punctate of second bilateral renal calculi. 5. Small bilateral pleural effusions. 6. No abscess seen. James Wyatt MD Chest X-Ray 07/21/16 1002 Signed Impressions: Service Date/Time: Thursday, July 21, 2016 10:01 - CONCLUSION: 1. Blunting of both costophrenic angles, right greater than left suggesting some degree of effusion. 2. In addition, there is some focal increased interstitial markings in the right lower lung field suggesting some asymmetric vascular congestion or volume overload. No confluent infiltrate. 3. Dextroscoliosis of the thoracolumbar spine with associated degenerative changes Nikos Kaur MD CT Angiography 07/21/16 0000 Signed Impressions: Service Date/Time: Thursday, July 21, 2016 11:06 - CONCLUSION: 1. No evidence of pulmonary embolism. 2. Bilateral effusions and left basilar atelectasis Amos Toledo MD Physical Exam GENERAL: This is a well-nourished, well-developed patient, in no apparent distress. SKIN: No rashes, ecchymoses or lesions. Cool and dry. HEAD: Atraumatic. Normocephalic. No temporal or scalp tenderness. EYES: Pupils equal round and reactive. Extraocular motions intact. No scleral icterus. No injection or drainage. ENT: Nose without bleeding, purulent drainage or septal hematoma. Throat without erythema, tonsillar hypertrophy or exudate. Uvula midline. Airway patent. NECK: Trachea midline. Supple, nontender, no meningeal signs. CARDIOVASCULAR: HS audible. RESPIRATORY: Clear to auscultation. Breath sounds equal bilaterally. GASTROINTESTINAL: Abdomen soft, non-tender, nondistended. MUSCULOSKELETAL: Rt forearm with small abscess 2x2 cm with induration but no fluctuance. Left forearm at wrist level lanced indurated area(prior abscess site per patient ) NEUROLOGICAL: Awake and alert. Grossly nonfocal. Psych: cooperative IV line sites with no e/o infection. Assessment & Plan Remarks Coag neg staph bacteremia in pt with IVDA and prior Spine Osteomyelitis. MSSA in urine: ? translocation in urine from Staph bacteremia. Possible Endocarditis and or Spinal hardware infection. Prior MSSA hardware infection s/p removal. Bilateral forearm abscess (left at wrist level, right in mid forearm) IVDA ongoing. Abnormal Liver function tests: ? sepsis vs hepatitis related. Recs HIV and hepatitis profile negative. Follow cultures Continue Ceftriaxone IV change dose to 2 gm IV q12hrs for epidural abscess and for endocarditis. Continue Vanco IV(target 15-20). Pharmacy consult. Hold and check levels when Cr increases. No PICC till cleared by ID. d/w : will treat as epidural abscess as aspiration was after 1 week of antibiotics in hospital. d/w Case management: will need inpatient IV antibiotics. Looking into placement for completion of IV antibiotic course. Alina Davis MD Jul 30, 2016 18:25
[2016-07-30 19:13] LABS: BICARBONATE 24.4 MEQ/L (21.0-32.0)
[2016-07-30 19:20] LABS: POTASSIUM 5.6 MEQ/L (3.5-5.1)
[2016-07-30 20:00] VITALS: BP 104/70; PULSE 70; RESP 20; TEMP 97.6; O2SAT 100
[2016-07-30 20:26] VITALS: O2SAT 99
[2016-07-30] MEDS: CARVEDILOL 3.125 MG TAB PO SCH (21:28)
[2016-07-31] VITALS (7 sets, daily range): BP systolic 106–135; BP diastolic 64–87; PULSE 73–79; RESP 18–20; TEMP 97–98.7; O2SAT 95–98
[2016-07-31] MEDS ORDERED: LINEZOLID 600 MG PREMIX 300 ML IV SCH
[2016-07-31] MEDS: SODIUM CHLOR 0.9% 1000 ML INJ 1,000 ML IV SCH (00:45)
[2016-07-31] MEDS: INSULIN ASPART SUPPLEMENTAL SCALE SQ SCH ×4 (05:40→21:26)
[2016-07-31 06:48] LABS: APTT (PATIENT) 28.5 SEC (24.3-30.1); INTERNATIONAL NORMALIZED RATIO 1.4 RATIO; PROTHROMBIN TIME - PATIENT 15.5 SEC (9.8-11.6)
[2016-07-31 07:20] LABS: BICARBONATE 21.6 MEQ/L (21.0-32.0)
[2016-07-31 07:22] LABS: POTASSIUM 5.1 MEQ/L (3.5-5.1)
--- NOTE | 2016-07-31 09:21 | HHI.FPPN ---
Subjective Remarks No acute events overnight. BP improved today. This morning, patient continues to report that he feels unchanged since admission but otherwise denies any abdominal pain or hematuria. Objective Vitals Vital Signs Date Time Temp Pulse Resp B/P Pulse Ox O2 Delivery O2 Flow Rate FiO2 07/31/16 07:43 97.0 77 20 135/76 97 07/31/16 04:00 98.7 75 20 130/87 95 07/31/16 00:00 97.8 77 18 123/64 96 07/30/16 20:26 99 Nasal Cannula 21 07/30/16 20:00 97.6 70 20 104/70 100 07/30/16 16:00 97.6 69 20 102/59 96 07/30/16 12:00 97.2 69 20 100/60 95 I/O 07/30/16 07/30/16 07/30/16 07/31/16 07/31/16 07/31/16 07:00 15:00 23:00 07:00 15:00 23:00 Intake Total 712 ml 1452 ml 965 ml 848 ml Output Total 200 ml Balance 712 ml 1452 ml 765 ml 848 ml Intake Oral 200 ml 1200 ml 480 ml IV Total 512 ml 252 ml 485 ml 848 ml Output Urine Total 200 ml # Voids 4 4 # Bowel Movements 0 0 Result Diagram: 07/28/16 0654 07/31/16 0524 Objective Remarks GEN: Thin male in no acute distress. Lying comfortably in bed. CV: Regular rate and rhythm without obvious murmurs. LUNGS: Decreased air movement bilateral, appears to have poor effort. Normal respiratory effort. No wheezes, rales, rhonchi. EXT: No edema. No calf tenderness. NEURO/PSYCH: Awake, alert. Appropriate insight and judgment. Flat affect. Normal speech. A/P Assessment and Plan 71yo male with PMH significant for IV drug use. Admitted for generalized malaise and endocarditis evaluation. Discharge Planning Pending ID recommendations and improvement in renal function * CM has been able set to up outpatient IV ABX at [facility] [place] Problem List: (1) Endocarditis, suspected Status: Acute Plan: Concern for endocarditis due to presence of Staph Aureus in urine. Will need treatment x6 wks due to history of osteomyelitis and IVD use. Suspect cultures have been negative due to the start of abx prior to obtaining all cultures, including spine. Echo negative for vegetations. -blood cultures and paraspinal fluid collection unremarkable. (Fungal culture pending) * 1 blood culture positive is likely due to contamination -urine culture: Staph Aureus -I&D of left wrist abscess wound culture: MRSA Imaging: * MRI of lumbar spine: elongated fluid collections in the posterior paraspinal soft tissues on the right and left without MRI features convincing for abscess. These are presumably seroma or hematomas. Also no evidence of osteomyelitis. * CT abdomen: No abscesses seen ID consulted: appreciate recommendations * Stopped Vancomycin (07/22-07/30), Rocephin (07/21-07/31) and Linezolid (07/31) due to renal function. * Started Daptomycin (07/31- * No PICC till cleared by ID * Consulted GI and nephrology Neurosurgery consulted: not a surgical candidate. Signed off (2) MILLER (acute kidney injury) Status: Acute Plan: Found to have an acute increase in Cr from a baseline around 1.0. Etiology may be due to abx versus NSAIDs -Concern for acute interstitial nephritis but urine eosinophils were negative -NS @84 x2 bag to minimize risk for fluid overload due to CHF -Avoid nephrotoxic medications Nephrology consulted: appreciate recommendations. (3) CHF (congestive heart failure) Status: Chronic Plan: Initially presented for chest pain and shortness of breath. Echo from 2015 showed an EF of 55-60%. BNP on admission was significantly elevated. Suspect CHF contributing to symptoms of chronic malaise -ACS evaluation negative -Repeat echo with an EF of 15-20% Cardiology consulted: Appreciate recommendations * Nuclear stress test showing ventriculomegaly with large fixed perfusion abnormality and no evidence of stress-induced reversible abnormalities. Severe global hypokinesia with 14% ejection fraction. * Probably non-ischemic etiology * OK to dc from a cardiac standpoint Imaging: * CXR: Blunting of both costophrenic angles with some degree of effusion. Some focal increased interstitial markings the right lower lung suggesting some asymmetric basilar congestion or volume overload. No confluent infiltrate. * CTA: No evidence of PE. Bilateral effusions left basilar atelectasis. Medications: *Meds on hold until renal function improves * HOLD Lasix 20 mg po daily * HOLD KCL 10meq po daily * HOLD Aspirin 81mg daily * HOLD Lisinopril 5 mg po daily * Coreg 3.125 mg po q12h (4) Elevated liver enzymes Status: Acute Plan: Persistently elevated liver enzymes along with an elevated INR --Hepatitis and HIV negative -GI consulted: appreciate recommendations (5) UTI (urinary tract infection) Status: Acute Plan: see plan under endocarditis (6) DM (diabetes mellitus) Status: Acute Plan: -Continue accuchecks ACHS, low dose sliding scale -Metformin held due to need for contrast studies. Anticipate discharging on medication if renal function is adequate. -Will add basal insulin if needed (7) Polysubstance abuse Status: Chronic Plan: Patient admits to marijuana, Dilaudid, cocaine, methamphetamine drug use. UDS positive for cocaine and methamphetamine (8) Nutrition, metabolism, and development symptoms Status: Acute Plan: Nutrition: Diabetic diet Fluids: ns @84 X2 BAGs Electrolytes: unremarkable, continue to monitor DVT prophylaxis: Lovenox resumed 07/28 GI prophylaxis: Not indicated Anxiety: Xanax 0.25mg PRN, Zoloft 50 mg po daily started 07/25 (sertraline held on 07/31 due to interaction with linezolid, restarted medication 08/01) Problem Qualifiers (1) CHF (congestive heart failure): Qualified Code: I50.21 - Acute systolic congestive heart failure (2) DM (diabetes mellitus): Qualified Code: E11.9 - Type 2 diabetes mellitus without complication, without long-term current use of insulin Kelsi Santiago MD R2 Jul 31, 2016 09:21 (2) DM (diabetes mellitus): Qualified Code: E11.9 - Type 2 diabetes mellitus without complication, without long-term current use of insulin Kelsi Santiago MD R2 Jul 31, 2016 09:21 Kelsi Santiago MD R2 Jul 31, 2016 09:21
[2016-07-31] MEDS: SODIUM CHLORIDE 0.9% FLUSH 5 ML FLUSH FLUSH SCH ×2 (09:28→21:26)
[2016-07-31] MEDS: ASPIRIN EC 81 MG TABEC PO SCH (09:29)
[2016-07-31] MEDS: CARVEDILOL 3.125 MG TAB PO SCH ×2 (09:29→21:24)
[2016-07-31] MEDS ORDERED: SODIUM CHLORIDE 0.9% IV SCH (10:45)
[2016-07-31] MEDS ORDERED: DAPTOMYCIN IV SCH (10:45)
[2016-07-31] MEDS: ENOXAPARIN SODIUM 40 MG/0.4 ML SYRINGE SQ SCH (12:11)
[2016-07-31 12:57] LABS: AUTOMATED NEUTROPHIL # 5.5 TH/MM3 (1.8-7.7); BASOPHIL # 0.1 TH/MM3 (0-0.2); BASOPHIL % 0.7 % (0.0-2.0); EOSINOPHIL % 0.5 % (0.0-4.0); HEMATOCRIT 45.1 % (39.0-51.0); HEMO FLAGS DIFF FINAL; LYMPH % 17.9 % (9.0-44.0); LYMPHOCYTE # 1.4 TH/MM3 (1.0-4.8); MEAN CELL VOLUME 88.5 FL (80.0-100.0); MEAN CORPUSCULAR HEMOGLOBIN 28.8 PG (27.0-34.0); MEAN CORPUSCULAR HGB CONC 32.5 % (32.0-36.0); MONO % 9.2 % (0.0-8.0); NEUT % 71.7 % (16.0-70.0); PLATELET COUNT 353 TH/MM3 (150-450); RED BLOOD COUNT 5.09 MIL/MM3 (4.50-5.90); RED CELL DISTRIBUTION WIDTH 15.1 % (11.6-17.2); WHITE BLOOD COUNT 7.6 TH/MM3 (4.0-11.0)
[2016-07-31 13:12] LABS: ANION GAP 10 MEQ/L (5-15); AST (GOT) 136 U/L (15-37); BICARBONATE 22.5 MEQ/L (21.0-32.0); BLOOD UREA NITROGEN 41 MG/DL (7-18); CHLORIDE 103 MEQ/L (98-107); GLOMERULAR FILTRATION RATE 45 ML/MIN (>89); POTASSIUM 4.6 MEQ/L (3.5-5.1); SODIUM (NA) 135 MEQ/L (136-145)
[2016-07-31 13:14] LABS: ALKALINE PHOSPHATASE 202 U/L (45-117); ALT (GPT) 145 U/L (12-78); TOTAL BILIRUBIN ADULT 0.6 MG/DL (0.2-1.0)
--- NOTE | 2016-07-31 15:17 | PD.CONS ---
[facility] Service Nephrology Consult Requested By Reason for Consult Acute Renal Failure Primary Care Physician No Primary Care Physician History of Present Illness We were consulted on this patient for renal evaluation. He was admitted on 07/21 with shortness of breath, chest pain, fatigue and sweats, found to have positive MRSA cultures on his arm wound, in the urine, and blood. He has a hx of IV drug use with methamphetamine. Other PMH of HTN, DM, antiphospholipid antibody syndrome, and bacteremia in 2014 from infected back hardware. His creatinine was normal until 07/30, where it justin to 1.51 from 1.09, peaking at 1.77, and down to 1.54 today. His antibiotics were changed and his NSAID treatment has been held. He is on 0.9% NS infusion at this time. It appears he is oliguric, reporting decreased urine output. ID has been following along with neurosurgery. On exam he is awake, not in distress. His electrolytes are unremarkable. He is a full code, and interested in stopping drug use. (Cesia Elliott) Review of Systems Constitutional: COMPLAINS OF: Fatigue, DENIES: Diaphoretic episodes, Fever Gastrointestinal: COMPLAINS OF: Nausea, DENIES: Abdominal pain, Black stools, Diarrhea, Vomiting, Difficulty Swallowing Genitourinary: DENIES: Urinary frequency, Urinary incontinence, Urgency, Penile Discharge, Testicular Pain Musculoskeletal: DENIES: Joint pain, Joint Swelling Hematologic/lymphatic: DENIES: Bruising Neurologic: DENIES: Abnormal gait (Cesia Elliott) Past Family Social History Allergies: Coded Allergies: Morphine (Verified Allergy, Severe, Itching, 07/21/16) *MDRO Multi-Drug Resistant Organism (Verified Adverse Reaction, Unknown, ) 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/16 Past Medical History IV drug abuse Bacteremia secondary to abscess of the spine. hypertension-resolved after wt loss Hyperlipidemia-resolved after wt loss Diabetes-resolved after wt loss Antiphospholipid antibody syndrome-use to be on warfarin, stopped 6-7yrs ago TIA Past Surgical History back surgery appy GB Reported Medications No home medications Active Ordered Medications Current Medications Medications (Trade) Dose Ordered Sig/Keiko Route Start Time Stop Time Status Last Admin (NS Flush) 2 ml UNSCH PRN FLUSH 07/21/16 12:30 (NS Flush) 2 ml BID FLUSH 07/21/16 21:00 07/31/16 09:28 (Zofran Inj) 4 mg Q6H PRN IVP 07/21/16 12:30 (Lovenox Inj) 40 mg Q24H SQ 07/21/16 13:00 07/31/16 12:11 (Narcan Inj) 0.4 mg UNSCH PRN IV 07/21/16 12:30 (Vasotec Inj) 1.25 mg Q6H PRN IV 07/21/16 12:30 07/22/16 12:13 (D50w (Vial) Inj) 25 ml UNSCH PRN IV PUSH 07/21/16 12:30 (Glucagon Inj) 1 mg UNSCH PRN OTHER 07/21/16 12:30 (Ecotrin Ec) 81 mg DAILY PO 07/22/16 09:00 Hold 07/31/16 09:29 (Pill Splitter) 1 ea UNSCH PRN OTHER 07/24/16 07:00 (Xanax) 0.25 mg TID PRN PO 07/24/16 09:30 07/28/16 22:03 (Zoloft) 50 mg DAILY PO 07/25/16 11:00 Hold 07/30/16 08:35 (Lasix) 20 mg DAILY PO 07/28/16 09:00 Hold 07/29/16 08:34 (KCl) 10 meq DAILY PO 07/28/16 09:00 Hold 07/28/16 08:18 (Prinivil) 5 mg DAILY PO 07/30/16 09:00 Hold 07/30/16 08:35 (Roxicodone) 10 mg Q4H PRN PO 07/30/16 16:30 07/31/16 12:09 Oxycodone HCl 5 mg 5 mg Q4H PRN PO 07/30/16 16:30 (NS 1000 ml Inj) 1,000 ml @ 84 mls/hr [id number] IV 07/30/16 16:30 07/31/16 16:18 07/31/16 00:45 Carvedilol 3.125 mg 3.125 mg Q12HR PO 07/30/16 21:00 07/31/16 09:29 (Cubicin Inj/NS Inj) 100 ml @ 200 mls/hr Q24H IV 08/01/16 12:00 Family History No hx of renal disorders Social History Single, lives alone with minimal social support No smoking or ETOH frequent IV methamphetamine 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 (Cesia Elliott) Physical Exam Vital Signs Vital Signs Date Time Temp Pulse Resp B/P Pulse Ox O2 Delivery O2 Flow Rate FiO2 07/31/16 12:00 97.4 79 18 133/81 97 07/31/16 07:43 97.0 77 20 135/76 97 07/31/16 04:00 98.7 75 20 130/87 95 07/31/16 00:00 97.8 77 18 123/64 96 07/30/16 20:26 99 Nasal Cannula 21 07/30/16 20:00 97.6 70 20 104/70 100 07/30/16 16:00 97.6 69 20 102/59 96 Physical Exam Elderly male, disheveled, awake/alert/oriented CV: S1/S2, regular rate and rhythm Lungs: clear upper lobes, scattered rales in bases Abd: round, soft, non tender Ext: no edema, pulses intact distally Skin: intact, healed wounds on arms from injecting Laboratory Laboratory Tests Test 07/30/16 07/31/16 07/31/16 07/31/16 18:26 05:24 09:30 12:45 Sodium Level 135 134 135 Potassium Level 5.6 5.1 4.6 Chloride Level 102 100 103 Carbon Dioxide Level 24.4 21.6 22.5 Anion Gap 9 12 10 Blood Urea Nitrogen 40 43 41 Creatinine 1.69 1.77 1.54 Estimat Glomerular Filtration 40 38 45 Rate Random Glucose 147 182 205 Calcium Level 9.1 9.3 8.9 Prothrombin Time 15.5 Prothromb Time International 1.4 Ratio Activated Partial 28.5 Thromboplast Time Random Vancomycin Level 26.4 Urine Eosinophils NONE SEEN White Blood Count 7.6 Red Blood Count 5.09 Hemoglobin 14.6 Hematocrit 45.1 Mean Corpuscular Volume 88.5 Mean Corpuscular Hemoglobin 28.8 Mean Corpuscular Hemoglobin 32.5 Concent Red Cell Distribution Width 15.1 Platelet Count 353 Mean Platelet Volume 8.9 Neutrophils (%) (Auto) 71.7 Lymphocytes (%) (Auto) 17.9 Monocytes (%) (Auto) 9.2 Eosinophils (%) (Auto) 0.5 Basophils (%) (Auto) 0.7 Neutrophils # (Auto) 5.5 Lymphocytes # (Auto) 1.4 Monocytes # (Auto) 0.7 Eosinophils # (Auto) 0.0 Basophils # (Auto) 0.1 CBC Comment DIFF FINAL Differential Comment Total Bilirubin 0.6 Aspartate Amino Transf 136 (AST/SGOT) Alanine Aminotransferase 145 (ALT/SGPT) Alkaline Phosphatase 202 Total Creatine Kinase 40 Total Protein 5.9 Albumin 2.4 Date/Time Procedure Status Source Growth 07/26/16 17:10 Gram Stain - Final Complete Fluid Other 07/26/16 17:10 Body Fluid Culture - Final Complete Fluid Other NO GROWTH IN 72 HRS.--AEROBICALLY OR ... 07/26/16 17:10 Fungal Smear - Final Resulted Fluid Other NO FUNGAL ELEMENTS SEEN. 07/26/16 17:10 Fungal Culture Resulted Fluid Other Pending 07/26/16 17:10 Acid Fast Stain - Final Resulted Fluid Other NO ACID FAST BACILLI SEEN 07/26/16 17:10 Mycobacterial Culture Resulted Fluid Other Pending (Cesia Elliott) Result Diagram: 07/31/16 1245 07/31/16 1245 Assessment and Plan Problem List: (1) MILLER (acute kidney injury) Plan: In a pt with normal renal function his creatinine justin on 07/30, since then it has improved lisinopril, vancomycin, Rocephin, and linezolid were all stopped at that time; motrin also stopped previously he has had no contrast exposure MILLER: ? AIN urine eosinophils negative but it is not very specific at this time, continue IVF obtain renal US to ensure no obstruction as it seems urine output has dropped repeat UA encourage oral intake continue current plan attempt to minimize mediations if possible, only on Daptomycin now labs in am (Cesia Elliott) Problem List: (1) MILLER (acute kidney injury) Plan: MILLER is multifactorial. Was on Lasix, and Motrin. Also was on Vancomycin, level is still high. Stop all the offending agents. Repeat UA. Continue IVF. Monitor renal function. He is non oliguric. Discussed with Dr. Davis. (2) Paraspinal abscess Plan: it was drained. On antibiotic per ID. (3) Polysubstance abuse Plan: He admits to using Methamphetamine and Cocaine. Assessment and Plan Thanks for the consult. We will follow. (Tigre Ji MD) Cesia ElliottP Jul 31, 2016 15:17 Tigre Ji MD Jul 31, 2016 16:20
--- NOTE | 2016-07-31 18:45 | HHI.IDPN ---
Subjective Subjective Remarks is a 71-year-old male with a PMH significant for IV drug use, back surgery, MSSA hardware infection followed by hardware removal. Currently admitted with back pain, multiple abscesses with different organisms in cultures. Patient is known IVDA and this can be seen in such cases. Overnight events reviewed, No fever No rash No diarrhea UO low overnight. No change in mentation. Cr increased further. Antibiotics Ceftriaxone IV Vanco IV Lines Line sites with no e/o infection. Past Medical History reviewed. Allergies: Coded Allergies: Morphine (Verified Allergy, Severe, Itching, 07/21/16) *MDRO Multi-Drug Resistant Organism (Verified Adverse Reaction, Unknown, ) 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/16 Objective . Vital Signs Date Time Temp Pulse Resp B/P Pulse Ox O2 Delivery O2 Flow Rate FiO2 07/31/16 18:14 98 Nasal Cannula 2.00 07/31/16 16:00 97.4 74 18 106/64 98 07/31/16 14:30 20 07/31/16 12:00 97.4 79 18 133/81 97 07/31/16 07:43 97.0 77 20 135/76 97 07/31/16 04:00 98.7 75 20 130/87 95 07/31/16 00:00 97.8 77 18 123/64 96 07/30/16 20:26 99 Nasal Cannula 21 07/30/16 20:00 97.6 70 20 104/70 100 07/30/16 07/30/16 07/31/16 15:00 23:00 07:00 Intake Total 1452 ml 965 ml 848 ml Output Total 200 ml Balance 1452 ml 765 ml 848 ml Intake Oral 1200 ml 480 ml IV Total 252 ml 485 ml 848 ml Output Urine Total 200 ml # Voids 4 # Bowel Movements 0 . Laboratory Tests Test 07/31/16 12:45 White Blood Count 7.6 TH/MM3 Red Blood Count 5.09 MIL/MM3 Hemoglobin 14.6 GM/DL Hematocrit 45.1 % Mean Corpuscular Volume 88.5 FL Mean Corpuscular Hemoglobin 28.8 PG Mean Corpuscular Hemoglobin 32.5 % Concent Red Cell Distribution Width 15.1 % Platelet Count 353 TH/MM3 Mean Platelet Volume 8.9 FL Neutrophils (%) (Auto) 71.7 % Lymphocytes (%) (Auto) 17.9 % Monocytes (%) (Auto) 9.2 % Eosinophils (%) (Auto) 0.5 % Basophils (%) (Auto) 0.7 % Neutrophils # (Auto) 5.5 TH/MM3 Lymphocytes # (Auto) 1.4 TH/MM3 Monocytes # (Auto) 0.7 TH/MM3 Eosinophils # (Auto) 0.0 TH/MM3 Basophils # (Auto) 0.1 TH/MM3 CBC Comment DIFF FINAL Differential Comment Laboratory Tests Test 07/30/16 07/30/16 07/31/16 07/31/16 09:17 18:26 05:24 12:45 Sodium Level 134 MEQ/L 135 MEQ/L 134 MEQ/L 135 MEQ/L Potassium Level 5.5 MEQ/L 5.6 MEQ/L 5.1 MEQ/L 4.6 MEQ/L Chloride Level 99 MEQ/L 102 MEQ/L 100 MEQ/L 103 MEQ/L Carbon Dioxide Level 20.9 MEQ/L 24.4 MEQ/L 21.6 MEQ/L 22.5 MEQ/L Anion Gap 14 MEQ/L 9 MEQ/L 12 MEQ/L 10 MEQ/L Blood Urea Nitrogen 35 MG/DL 40 MG/DL 43 MG/DL 41 MG/DL Creatinine 1.51 MG/DL 1.69 MG/DL 1.77 MG/DL 1.54 MG/DL Estimat Glomerular Filtration 46 ML/MIN 40 ML/MIN 38 ML/MIN 45 ML/MIN Rate Random Glucose 164 MG/DL 147 MG/DL 182 MG/DL 205 MG/DL Calcium Level 9.4 MG/DL 9.1 MG/DL 9.3 MG/DL 8.9 MG/DL Total Bilirubin 0.6 MG/DL Aspartate Amino Transf 136 U/L (AST/SGOT) Alanine Aminotransferase 145 U/L (ALT/SGPT) Alkaline Phosphatase 202 U/L Total Creatine Kinase 40 U/L Total Protein 5.9 GM/DL Albumin 2.4 GM/DL Imaging Last Impressions Myocardial Perfusion Scan Nuc Med 07/25/16 0000 Signed Impressions: Service Date/Time: Monday, July 25, 2016 10:43 - CONCLUSION: Ventriculomegaly with large fixed perfusion abnormality and no evidence of stress-induced reversible abnormalities. Severe global hypokinesia with 14%% ejection fraction. RISK CATEGORY: High (>3%% Annual Mortality Rate) Brown Tejeda MD Lumbar Spine MRI 07/24/16 0000 Signed Impressions: Service Date/Time: July 18:25 - CONCLUSION: 1. Previous surgery at L4/L5 and L5/S1 with subsequent hardware removal. There are elongated fluid collections in the posterior paraspinous soft tissues on the right and left without MRI features convincing for abscess. These are presumably seromas or old hematomas. Also no evidence of osteomyelitis.. 2. Normal thecal sac and epidural space. 3. No foraminal or spinal stenosis at any level. 4. Mild bilateral facet osteoarthritis and nonspecific synovitis at L3/L4. Kwesi Hinojosa MD Abdomen/Pelvis CT 07/23/16 0000 Signed Impressions: Service Date/Time: Saturday, July 23, 2016 17:42 - CONCLUSION: 1. Diverticulosis without diverticulitis. 2. Minimal ascites. 3. Dilated stomach. 4. A few punctate of second bilateral renal calculi. 5. Small bilateral pleural effusions. 6. No abscess seen. James Wyatt MD Chest X-Ray 07/21/16 1002 Signed Impressions: Service Date/Time: Thursday, July 21, 2016 10:01 - CONCLUSION: 1. Blunting of both costophrenic angles, right greater than left suggesting some degree of effusion. 2. In addition, there is some focal increased interstitial markings in the right lower lung field suggesting some asymmetric vascular congestion or volume overload. No confluent infiltrate. 3. Dextroscoliosis of the thoracolumbar spine with associated degenerative changes Nikos Kaur MD CT Angiography 07/21/16 0000 Signed Impressions: Service Date/Time: Thursday, July 21, 2016 11:06 - CONCLUSION: 1. No evidence of pulmonary embolism. 2. Bilateral effusions and left basilar atelectasis Amos Toledo MD Physical Exam GENERAL: This is a well-nourished, well-developed patient, in no apparent distress. SKIN: No rashes, ecchymoses or lesions. Cool and dry. HEAD: Atraumatic. Normocephalic. No temporal or scalp tenderness. EYES: Pupils equal round and reactive. Extraocular motions intact. No scleral icterus. No injection or drainage. ENT: Nose without bleeding, purulent drainage or septal hematoma. Throat without erythema, tonsillar hypertrophy or exudate. Uvula midline. Airway patent. NECK: Trachea midline. Supple, nontender, no meningeal signs. CARDIOVASCULAR: HS audible. RESPIRATORY: Clear to auscultation. Breath sounds equal bilaterally. GASTROINTESTINAL: Abdomen soft, non-tender, nondistended. MUSCULOSKELETAL: Rt forearm with small abscess 2x2 cm with induration but no fluctuance. Left forearm at wrist level lanced indurated area(prior abscess site per patient ) NEUROLOGICAL: Awake and alert. Grossly nonfocal. Psych: cooperative IV line sites with no e/o infection. Assessment & Plan Remarks Coag neg staph bacteremia in pt with IVDA and prior Spine Osteomyelitis. MSSA in urine: ? translocation in urine from Staph bacteremia. Possible Endocarditis and or Spinal hardware infection. Prior MSSA hardware infection s/p removal. Bilateral forearm abscess (left at wrist level, right in mid forearm) IVDA ongoing. Abnormal Liver function tests: ? sepsis vs hepatitis related. Recs HIV and hepatitis profile negative. Follow cultures DC Ceftriaxone IV DC Vanco IV(target 15-20). No PICC till cleared by ID. Consult GI: abnormal persistently elevated LFTs Consult Nephrology: ? AIN vs ATN. Was on several nephrotoxic medications: Lasix , Ibuprofen and Vanco IV. dw . Start Dapto IV Check CK levels. d/w Primary team . Alina Davis MD Jul 31, 2016 18:45
--- NOTE | 2016-07-31 22:41 | RADRPT ---
EXAM DATE/TIME: 07/31/2016 20:19 [facility] COMPARISON: No previous studies available for comparison. INDICATIONS : Increased BUN/creatinine. MEDICAL HISTORY : Hypercholesterolemia. Myocardial infarction. Hypertension. CVA. Endocarditis. CAD. Dyspnea. Diabetes. Collapsed lung. MRSA. SURGICAL HISTORY : Cholecystectomy. Appendectomy. Back surgery. Knee surgery. Blood transfusions. Collapsed lung surge ry. ENCOUNTER: Initial ACUITY: 1 day PAIN SCORE: 0/10 LOCATION: Bilateral flank MEASUREMENTS: RIGHT KIDNEY: 12.4 x 5.9 x 4.8 cm LEFT KIDNEY: 13.5 x 5.5 x 5.8 cm FINDINGS: Ascites. RIGHT KIDNEY: Renal cortex is normal in thickness and echotexture. No hydronephrosis, stone, or mass. LEFT KIDNEY: Renal cortex is normal in thickness and echotexture. No hydronephrosis, stone, or mass. BLADDER: Mildly distended with minimal dependent debris or posterior wall thickening CONCLUSION: No evidence of hydronephrosis. Posterior bladder wall thickening or dependent debris. Ascites. Kwesi Coleman MD on July 31, 2016 at 22:38 Board Certified Radiologist. This report was verified electronically.
[2016-07-31 23:10] LABS: BLOOD, URINE NEG (NEG); CALCIUM OXALATE CRYSTALS,URINE RARE /hpf; COMMENT (UR) CULT NOT INDICATED; CULTURE IF INDICATED CULT NOT INDICATED; GLUCOSE,URINE NEG (NEG); KETONE, URINE NEG (NEG); MUCUS URINE FEW /lpf (OCC); NITRITE,URINE NEG (NEG); SQUAMOUS EPITHELIAL CELL URINE <1 /hpf (0-5); URINE COLOR YELLOW (YELLW/STRAW)
[2016-08-01] VITALS (9 sets, daily range): BP systolic 111–135; BP diastolic 60–87; PULSE 68–105; RESP 18; TEMP 96–98.4; O2SAT 91–98
[2016-08-01] MEDS: RESP: ALBUTEROL 2.5 MG/3 ML NEB (PRN) INH (05:11)
[2016-08-01] MEDS: INSULIN ASPART SUPPLEMENTAL SCALE SQ SCH ×4 (06:41→20:31)
[2016-08-01 08:10] LABS: AUTOMATED NEUTROPHIL # 5.1 TH/MM3 (1.8-7.7); BASOPHIL % 0.5 % (0.0-2.0); EOSINOPHIL # 0.1 TH/MM3 (0-0.4); EOSINOPHIL % 1.5 % (0.0-4.0); HEMATOCRIT 42.8 % (39.0-51.0); HEMO FLAGS DIFF FINAL; LYMPH % 22.8 % (9.0-44.0); LYMPHOCYTE # 1.8 TH/MM3 (1.0-4.8); MEAN CELL VOLUME 88.5 FL (80.0-100.0); MEAN CORPUSCULAR HGB CONC 32.8 % (32.0-36.0); MONO % 9.1 % (0.0-8.0); NEUT % 66.1 % (16.0-70.0); PLATELET COUNT 308 TH/MM3 (150-450); RED BLOOD COUNT 4.84 MIL/MM3 (4.50-5.90); RED CELL DISTRIBUTION WIDTH 14.9 % (11.6-17.2); WHITE BLOOD COUNT 7.7 TH/MM3 (4.0-11.0)
[2016-08-01 08:23] LABS: ALT (GPT) 118 U/L (12-78); ANION GAP 9 MEQ/L (5-15); AST (GOT) 93 U/L (15-37); BICARBONATE 23.5 MEQ/L (21.0-32.0); BLOOD UREA NITROGEN 36 MG/DL (7-18); CHLORIDE 105 MEQ/L (98-107); GLOMERULAR FILTRATION RATE 47 ML/MIN (>89); POTASSIUM 4.6 MEQ/L (3.5-5.1); SODIUM (NA) 137 MEQ/L (136-145)
[2016-08-01 08:25] LABS: ALKALINE PHOSPHATASE 179 U/L (45-117); TOTAL BILIRUBIN ADULT 0.4 MG/DL (0.2-1.0)
[2016-08-01] MEDS: CARVEDILOL 3.125 MG TAB PO SCH ×2 (09:00→20:31)
[2016-08-01] MEDS: SODIUM CHLORIDE 0.9% FLUSH 5 ML FLUSH FLUSH SCH ×2 (09:00→20:31)
[2016-08-01] MEDS: SERTRALINE HCL 50 MG TAB PO SCH (09:02)
--- NOTE | 2016-08-01 10:21 | HHI.FPPN ---
Subjective Remarks No events overnight. 600 mL UOP. Remains afebrile, vitals are stable. States overall he is feeling the same, possibly slightly better. Denies any fevers, chills, night sweats. Reports pain still only in his low back site of IR drainage. Denies chest pain, shortness of breath. (Marcos Cameron MD R1) Objective Vitals Vital Signs Date Time Temp Pulse Resp B/P Pulse Ox O2 Delivery O2 Flow Rate FiO2 08/01/16 09:11 94 08/01/16 09:07 93 Nasal Cannula 2.00 08/01/16 09:00 18 08/01/16 08:00 97.0 73 18 116/66 93 08/01/16 05:11 93 Nasal Cannula 08/01/16 04:00 96.0 73 18 112/80 98 08/01/16 00:00 97.1 72 18 115/72 95 07/31/16 20:45 Room Air 07/31/16 20:00 97.5 73 18 119/72 96 07/31/16 18:14 98 Nasal Cannula 2.00 07/31/16 16:00 97.4 74 18 106/64 98 07/31/16 12:00 97.4 79 18 133/81 97 I/O 07/31/16 07/31/16 07/31/16 08/01/16 08/01/16 08/01/16 07:00 15:00 23:00 07:00 15:00 23:00 Intake Total 848 ml 480 ml 180 ml 480 ml Output Total 600 ml Balance 848 ml -120 ml 180 ml 480 ml Intake Oral 480 ml 180 ml 480 ml IV Total 848 ml Output Urine Total 600 ml # Voids 2 1 # Bowel Movements 1 (Marcos Cameron MD R1) Result Diagram: 08/01/16 0657 08/01/16 0657 Objective Remarks GEN: Thin male in no acute distress. Lying comfortably in bed. CV: Regular rate and rhythm without obvious murmurs. LUNGS: Decreased air movement bilaterally, appears to have poor effort. No wheezes, rales, rhonchi. EXT: No edema. No calf tenderness. NEURO/PSYCH: Awake, alert. Appropriate insight and judgment. Flat affect. Normal speech. (Marcos Cameron MD R1) A/P Assessment and Plan 71yo male with PMH significant for IV drug use. Admitted for generalized malaise and endocarditis evaluation. Discharge Planning Pending ID recommendations and improvement in renal function * has been able set to up outpatient IV ABX at [facility] Dr. Loaiza (Marcos Cameron MD R1) Assessment and Plan Attending note: Patient seen and examined. Case reviewed and discussed with resident team. Agree with plan of care as discussed with physician and documented in the resident note. (Neil Loaiza MD) Problem List: (1) Endocarditis, suspected Status: Acute Plan: Concern for endocarditis due to presence of Staph Aureus in urine. Will need treatment x6 wks due to history of osteomyelitis and IVD use. Suspect cultures have been negative due to the start of abx prior to obtaining all cultures, including spine. Echo negative for vegetations. -blood cultures and paraspinal fluid collection unremarkable. (Fungal culture pending) * 1 blood culture positive is likely due to contamination -urine culture: Staph Aureus -I&D of left wrist abscess wound culture: MRSA Imaging: * MRI of lumbar spine: elongated fluid collections in the posterior paraspinal soft tissues on the right and left without MRI features convincing for abscess. These are presumably seroma or hematomas. Also no evidence of osteomyelitis. * CT abdomen: No abscesses seen ID consulted: appreciate recommendations * Stopped Vancomycin (07/22-07/30), Rocephin (07/21-07/31) and Linezolid (07/31) due to renal function. * Started Daptomycin (07/31- * No PICC till cleared by ID * Consulted GI and nephrology Neurosurgery consulted: not a surgical candidate. Signed off (2) MILLER (acute kidney injury) Status: Acute Plan: Found to have an acute increase in Cr from a baseline around 1.0. Etiology may be due to abx versus NSAIDs -Concern for acute interstitial nephritis but urine eosinophils were negative -Cr seems to be slowly improving -Fluids discontinued -Avoid nephrotoxic medications Nephrology consulted: appreciate recommendations. (3) CHF (congestive heart failure) Status: Chronic Plan: Initially presented for chest pain and shortness of breath. Echo from 2015 showed an EF of 55-60%. BNP on admission was significantly elevated. Suspect CHF contributing to symptoms of chronic malaise -ACS evaluation negative -Repeat echo with an EF of 15-20% Cardiology consulted: Appreciate recommendations * Nuclear stress test showing ventriculomegaly with large fixed perfusion abnormality and no evidence of stress-induced reversible abnormalities. Severe global hypokinesia with 14% ejection fraction. * Probably non-ischemic etiology * OK to dc from a cardiac standpoint Imaging: * CXR: Blunting of both costophrenic angles with some degree of effusion. Some focal increased interstitial markings the right lower lung suggesting some asymmetric basilar congestion or volume overload. No confluent infiltrate. * CTA: No evidence of PE. Bilateral effusions left basilar atelectasis. Medications: *Medications on hold until renal function improves * HOLD Lasix 20 mg po daily * HOLD KCL 10meq po daily * HOLD Aspirin 81mg daily * HOLD Lisinopril 5 mg po daily * Continue Coreg 3.125 mg po q12h (4) Elevated liver enzymes Status: Acute Plan: Persistently elevated liver enzymes along with an elevated INR -LFTs slightly improved today --Hepatitis and HIV negative -GI consulted: appreciate recommendations (5) UTI (urinary tract infection) Status: Acute Plan: see plan under endocarditis (6) DM (diabetes mellitus) Status: Acute Plan: -Continue accuchecks ACHS, low dose sliding scale -Metformin held due to need for contrast studies. Anticipate discharging on medication if renal function is adequate. -Will add basal insulin if needed (7) Polysubstance abuse Status: Chronic Plan: Patient admits to marijuana, Dilaudid, cocaine, methamphetamine drug use. UDS positive for cocaine and methamphetamine (8) Nutrition, metabolism, and development symptoms Status: Acute Plan: Nutrition: Diabetic diet Fluids: Discontinued Electrolytes: unremarkable, continue to monitor DVT prophylaxis: Lovenox resumed 07/28 GI prophylaxis: Not indicated Anxiety: Xanax 0.25mg PRN, Zoloft 50 mg po daily started 07/25 (sertraline held on 07/31 due to interaction with linezolid, restarted medication 08/01) (Marcos Cameron MD R1) Problem Qualifiers (1) CHF (congestive heart failure): Qualified Code: I50.21 - Acute systolic congestive heart failure (2) DM (diabetes mellitus): Qualified Code: E11.9 - Type 2 diabetes mellitus without complication, without long-term current use of insulin Marcos Cameron MD R1 Aug 01, 2016 10:21 Neil Loaiza MD Aug 01, 2016 18:11
[2016-08-01] MEDS: ENOXAPARIN SODIUM 40 MG/0.4 ML SYRINGE SQ SCH (14:16)
[2016-08-01] MEDS: DAPTOMYCIN IV SCH (14:16)
[2016-08-01] MEDS: SODIUM CHLORIDE 0.9% IV SCH (14:16)
--- NOTE | 2016-08-01 15:25 | PD.CONS ---
HPI History of Present Illness This is a 71 year old male patient with a hx of IVDA who came to the ER for evaluation of chest discomfort on 07/21/16 and was admitted for further workup. His chest discomfort resolved, but he was found to have bacteremia with Staph Sp Coagulase Negative. He has a hx of back surgery with MSSA hardware infection and subsequent removal. He complained of back pain and was found to have a paraspinal soft tissue fluid collection which likely is an old seroma as there is no enhancement and the radiologist concurs with this impression. He was evaluated by neurosurgery and they have signed off. He is currently hospitalized being treated for his bacteremia, MSSA in urine, possible endocarditis, bilateral forearm abscess. GI has been consulted for elevated LFTs. Pt has a long hx of IVDA with methamphetamines and crack, last 3 weeks ago. He has shared needles in the past. His hepatitis panel was negative. On admission, he had elevated LFTs with T. Bili 0.9, AST 203, ALT 136, ALk Phosph 192. These have been trending down and are now T. Bili 0.4, AST 93, ALT 118, Alk Phosph 179. His platelets are normal and he has very mild coagulopathy. Abdomen/Pelvis CT (07/23/16)-----> 1. Diverticulosis without diverticulitis. 2. Minimal ascites. 3. Dilated stomach. 4. A few punctate of second bilateral renal calculi. 5. Small bilateral pleural effusions. 6. No abscess seen. He denies any known history of liver disease in himself or other family members. He does not currently drink alcohol although he did drink heavily in the past for about 4 years. He denies any hx of cirrhosis. He did lose 100lbs about a year ago, that he attributes to his drug use. He has not had any recent weight loss and reports that his appetite has been good. He denies any nausea, vomiting, abdominal pain, diarrhea, constipation, melena, or hematochezia. He was originally treated with ceftriaxone, Bactrim DS, Vancomycin, Zyvox. He is currently on Daptomycin per ID recommendations. Renal is following for some renal insufficiency. Of note he does have a hx of antiphospholipid antibody syndrome, but went off his coumadin 6-7 years ago. (Kathy Mendieta) PFSH Past Medical History IVDA, ongoing last had 3 weeks ago (methamphetamines and crack) Bacteremia Infected back hardware MSSA with removal Hx HTN Hx DM Hx Hyperlipidemia Antiphospholipid antibody syndrome, stopped coumadin 6-7 years ago. TIA PTX Past Surgical History Back surgery with subsequent removal for MSSA infection Appendectomy Cholecystectomy (Kathy Mendieta) Coded Allergies: Morphine (Verified Allergy, Severe, Itching, 07/21/16) *MDRO Multi-Drug Resistant Organism (Verified Adverse Reaction, Unknown, ) 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/16 Medications Allergies Coded Allergies Type Severity Reaction Last Updated Verified Morphine Allergy Severe Itching 07/21/16 Yes *MDRO Multi-Drug Resistant Organism Adverse Reaction Unknown 07/25/16 Yes Active Scripts Medications Dose Route/Sig Days Date Category Bactrim DS (Sulfamethoxazole-Trimethoprim) 800-160 Mg Tab 1 Tab PO BID 07/22/16 Rx Family History No family hx of liver disease. Father from [place], Mother had CHF Social History Quit tobacco > 30 years ago No ETOH x 20 years IVDA with methamphetamines and crack (Kathy Mendieta) Review of Systems Constitutional: COMPLAINS OF: Fatigue, Fever, Weight loss (one year ago, none recently), Chills, DENIES: Change in appetite Respiratory: DENIES: Cough Cardiovascular: COMPLAINS OF: Chest pain Gastrointestinal: DENIES: Abdominal pain, Black stools, Bloody stools, Constipation, Diarrhea, Nausea, Vomiting, Anorexia, Odynophagia, Swelling of Abdomen, Hematemesis Musculoskeletal: COMPLAINS OF: Back pain Hematologic/lymphatic: COMPLAINS OF: Bruising Neurologic: DENIES: Headache Psychiatric: DENIES: Confusion (Kathy Mendieta) GI Exam Vitals I&O Vital Signs Date Time Temp Pulse Resp B/P Pulse Ox O2 Delivery O2 Flow Rate FiO2 08/01/16 12:00 96.0 96 18 121/60 91 08/01/16 09:11 94 08/01/16 09:07 93 Nasal Cannula 2.00 08/01/16 09:00 18 08/01/16 08:00 97.0 73 18 116/66 93 08/01/16 05:11 93 Nasal Cannula 08/01/16 04:00 96.0 73 18 112/80 98 08/01/16 00:00 97.1 72 18 115/72 95 07/31/16 20:45 Room Air 07/31/16 20:00 97.5 73 18 119/72 96 07/31/16 18:14 98 Nasal Cannula 2.00 07/31/16 18:14 98 Nasal Cannula 2.00 07/31/16 16:00 97.4 74 18 106/64 98 I/O 07/31/16 07/31/16 07/31/16 08/01/16 08/01/16 08/01/16 07:00 15:00 23:00 07:00 15:00 23:00 Intake Total 848 ml 480 ml 180 ml 480 ml Output Total 600 ml Balance 848 ml -120 ml 180 ml 480 ml Intake Oral 480 ml 180 ml 480 ml IV Total 848 ml Output Urine Total 600 ml # Voids 2 1 # Bowel Movements 1 Imaging Last Impressions Renal Ultrasound 07/31/16 1517 Signed Impressions: Service Date/Time: July 20:19 - CONCLUSION: No evidence of hydronephrosis. Posterior bladder wall thickening or dependent debris. Ascites. Kwesi Coleman MD Abscess Drainage X-Ray 07/26/16 0000 Signed Impressions: Service Date/Time: Tuesday, July 26, 2016 16:35 - CONCLUSION: Uncomplicated aspiration of complex fluid collections in the lower back bilaterally as detailed above. Nikos Kaur MD Soft Tissue Ultrasound 07/25/16 1834 Signed Impressions: Service Date/Time: Monday, July 25, 2016 23:13 - CONCLUSION: In the parasagittal lower back, deep to the subcutaneous tissues, there are bilateral mixed cystic and solid lesion which measure up to 6 cm in size. Kalyan Hayes MD Myocardial Perfusion Scan Nuc Med 07/25/16 0000 Signed Impressions: Service Date/Time: Monday, July 25, 2016 10:43 - CONCLUSION: Ventriculomegaly with large fixed perfusion abnormality and no evidence of stress-induced reversible abnormalities. Severe global hypokinesia with 14%% ejection fraction. RISK CATEGORY: High (>3%% Annual Mortality Rate) Brown Tejeda MD Lumbar Spine MRI 07/24/16 0000 Signed Impressions: Service Date/Time: July 18:25 - CONCLUSION: 1. Previous surgery at L4/L5 and L5/S1 with subsequent hardware removal. There are elongated fluid collections in the posterior paraspinous soft tissues on the right and left without MRI features convincing for abscess. These are presumably seromas or old hematomas. Also no evidence of osteomyelitis.. 2. Normal thecal sac and epidural space. 3. No foraminal or spinal stenosis at any level. 4. Mild bilateral facet osteoarthritis and nonspecific synovitis at L3/L4. Kwesi Hinojosa MD Abdomen/Pelvis CT 07/23/16 0000 Signed Impressions: Service Date/Time: Saturday, July 23, 2016 17:42 - CONCLUSION: 1. Diverticulosis without diverticulitis. 2. Minimal ascites. 3. Dilated stomach. 4. A few punctate of second bilateral renal calculi. 5. Small bilateral pleural effusions. 6. No abscess seen. James Wyatt MD Chest X-Ray 07/21/16 1002 Signed Impressions: Service Date/Time: Thursday, July 21, 2016 10:01 - CONCLUSION: 1. Blunting of both costophrenic angles, right greater than left suggesting some degree of effusion. 2. In addition, there is some focal increased interstitial markings in the right lower lung field suggesting some asymmetric vascular congestion or volume overload. No confluent infiltrate. 3. Dextroscoliosis of the thoracolumbar spine with associated degenerative changes Nikos Kaur MD CT Angiography 07/21/16 0000 Signed Impressions: Service Date/Time: Thursday, July 21, 2016 11:06 - CONCLUSION: 1. No evidence of pulmonary embolism. 2. Bilateral effusions and left basilar atelectasis Amos Toledo MD Laboratory Test 07/31/16 08/01/16 22:40 06:57 Urine Color YELLOW Urine Turbidity HAZY Urine pH 5.0 Urine Specific [place] 1.014 Urine Protein TRACE mg/dL Urine Glucose (UA) NEG mg/dL Urine Ketones NEG mg/dL Urine Occult Blood NEG Urine Nitrite NEG Urine Bilirubin NEG Urine Urobilinogen LESS THAN 2.0 MG/DL Urine Leukocyte Esterase NEG Urine RBC 1 /hpf Urine WBC 5 /hpf Urine Squamous Epithelial <1 /hpf Cells Urine Calcium Oxalate Crystals RARE /hpf Urine Mucus FEW /lpf Microscopic Urinalysis Comment CULT NOT INDICATED White Blood Count 7.7 TH/MM3 Red Blood Count 4.84 MIL/MM3 Hemoglobin 14.0 GM/DL Hematocrit 42.8 % Mean Corpuscular Volume 88.5 FL Mean Corpuscular Hemoglobin 29.0 PG Mean Corpuscular Hemoglobin 32.8 % Concent Red Cell Distribution Width 14.9 % Platelet Count 308 TH/MM3 Mean Platelet Volume 9.0 FL Neutrophils (%) (Auto) 66.1 % Lymphocytes (%) (Auto) 22.8 % Monocytes (%) (Auto) 9.1 % Eosinophils (%) (Auto) 1.5 % Basophils (%) (Auto) 0.5 % Neutrophils # (Auto) 5.1 TH/MM3 Lymphocytes # (Auto) 1.8 TH/MM3 Monocytes # (Auto) 0.7 TH/MM3 Eosinophils # (Auto) 0.1 TH/MM3 Basophils # (Auto) 0.0 TH/MM3 CBC Comment DIFF FINAL Differential Comment Sodium Level 137 MEQ/L Potassium Level 4.6 MEQ/L Chloride Level 105 MEQ/L Carbon Dioxide Level 23.5 MEQ/L Anion Gap 9 MEQ/L Blood Urea Nitrogen 36 MG/DL Creatinine 1.48 MG/DL Estimat Glomerular Filtration 47 ML/MIN Rate Random Glucose 183 MG/DL Calcium Level 8.8 MG/DL Total Bilirubin 0.4 MG/DL Aspartate Amino Transf 93 U/L (AST/SGOT) Alanine Aminotransferase 118 U/L (ALT/SGPT) Alkaline Phosphatase 179 U/L Total Protein 5.8 GM/DL Albumin 2.3 GM/DL Physical Examination HEENT: Normocephalic; atraumatic; no jaundice. CHEST: Chest is clear to auscultation and percussion. CARDIAC: RRR. ABDOMEN: Soft, nondistended, nontender; no hepatosplenomegaly; bowel sounds are present in all four quadrants. EXTREMITIES: No clubbing, cyanosis, or edema. SKIN: Normal; no rash; no jaundice. 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 (Kathy Mendieta) Assessment and Plan Plan ASSESSMENT: - Elevated LFTs. Pt with hx of IVDA, admitted for bacteremia/possible endocarditis. GI consulted for elevated LFTs. On admission, he had elevated LFTs with T. Bili 0.9, AST 203, ALT 136, ALk Phosph 192. These have been trending down and are now T. Bili 0.4, AST 93, ALT 118, Alk Phosph 179. His platelets are normal and he has very mild coagulopathy. Abdomen/Pelvis CT (07/23/16)-----> 1. Diverticulosis without diverticulitis. 2. Minimal ascites. 3. Dilated stomach. 4. A few punctate of second bilateral renal calculi. 5. Small bilateral pleural effusions. 6. No abscess seen. He denies any known history of liver disease in himself or other family members. He does not currently drink alcohol although he did drink heavily in the past for about 4 years. He denies any hx of cirrhosis. No GI symptoms. He has been on ceftriaxone, Bactrim DS, Vancomycin, Zyvox. He is currently on Daptomycin per ID recommendations. Of note he does have a hx of antiphospholipid antibody syndrome, but went off his coumadin 6-7 years ago. Hepatitis profile. Will order liver workup. Suspect, this may be medication induced (he was taking bactrim prior to admission) vs. infection. LFTs are improving. Of note, he does have a hx of antiphospholipid antibody syndrome and has been off of coumadin for 6-7 years. - Bacteremia with Staph Sp Coagulase Negative. Imaging revealed paraspinal soft tissue fluid collection and he was evaluated by NSx, who feels this is old seroma as there is no enhancement and the radiologist concurs with this impression. He was evaluated by neurosurgery and they have signed off. - MSSA in urine, bilateral forearm abscess. Abx per ID - IVDA, ongoing, last 3 weeks ago with methamphetamines and crack PLAN: - SHI - US liver with doppler flow to r/o portal vein thrombosis - AFP level - IAN, ASMA, AMA - Ceruloplasmin, Alpha 1 Antitrypsin - Ferritin, Iron saturation - Monitor LFTs - Avoid hepatotoxic meds - Further recommendations to follow based on results of above - Pt seen and examined by Dr. Oliver and myself and this note is written on her behalf (Kathy Mendieta) Physician Comments seen, examined agree with above (Leigha Oliver MD) Kathy Mendieta Aug 01, 2016 15:25 Leigha Oliver MD Aug 01, 2016 18:53
--- NOTE | 2016-08-01 15:52 | HHI.IDPN ---
Subjective Subjective Remarks is a 71-year-old male with a PMH significant for IV drug use, back surgery, MSSA hardware infection followed by hardware removal. Currently admitted with back pain, multiple abscesses with different organisms in cultures. Patient is known IVDA and this can be seen in such cases. Overnight events reviewed, No fever No rash No diarrhea UO 660 ml in 24 hours (400 cc prior day) More sleepy but easily arousable. Cr improving slightly. Antibiotics Dapto IV Lines Line sites with no e/o infection. Past Medical History reviewed. Allergies: Coded Allergies: Morphine (Verified Allergy, Severe, Itching, 07/21/16) *MDRO Multi-Drug Resistant Organism (Verified Adverse Reaction, Unknown, ) 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/16 Objective . Vital Signs Date Time Temp Pulse Resp B/P Pulse Ox O2 Delivery O2 Flow Rate FiO2 08/01/16 12:00 96.0 96 18 121/60 91 08/01/16 09:11 94 08/01/16 09:07 93 Nasal Cannula 2.00 08/01/16 09:00 18 08/01/16 08:00 97.0 73 18 116/66 93 08/01/16 05:11 93 Nasal Cannula 08/01/16 04:00 96.0 73 18 112/80 98 08/01/16 00:00 97.1 72 18 115/72 95 07/31/16 20:45 Room Air 07/31/16 20:00 97.5 73 18 119/72 96 07/31/16 18:14 98 Nasal Cannula 2.00 07/31/16 18:14 98 Nasal Cannula 2.00 07/31/16 16:00 97.4 74 18 106/64 98 07/31/16 07/31/16 08/01/16 15:00 23:00 07:00 Intake Total 480 ml 180 ml 480 ml Output Total 600 ml Balance -120 ml 180 ml 480 ml Intake Oral 480 ml 180 ml 480 ml Output Urine Total 600 ml # Voids 2 1 # Bowel Movements 1 . Laboratory Tests Test 07/31/16 08/01/16 12:45 06:57 White Blood Count 7.6 TH/MM3 7.7 TH/MM3 Red Blood Count 5.09 MIL/MM3 4.84 MIL/MM3 Hemoglobin 14.6 GM/DL 14.0 GM/DL Hematocrit 45.1 % 42.8 % Mean Corpuscular Volume 88.5 FL 88.5 FL Mean Corpuscular Hemoglobin 28.8 PG 29.0 PG Mean Corpuscular Hemoglobin 32.5 % 32.8 % Concent Red Cell Distribution Width 15.1 % 14.9 % Platelet Count 353 TH/MM3 308 TH/MM3 Mean Platelet Volume 8.9 FL 9.0 FL Neutrophils (%) (Auto) 71.7 % 66.1 % Lymphocytes (%) (Auto) 17.9 % 22.8 % Monocytes (%) (Auto) 9.2 % 9.1 % Eosinophils (%) (Auto) 0.5 % 1.5 % Basophils (%) (Auto) 0.7 % 0.5 % Neutrophils # (Auto) 5.5 TH/MM3 5.1 TH/MM3 Lymphocytes # (Auto) 1.4 TH/MM3 1.8 TH/MM3 Monocytes # (Auto) 0.7 TH/MM3 0.7 TH/MM3 Eosinophils # (Auto) 0.0 TH/MM3 0.1 TH/MM3 Basophils # (Auto) 0.1 TH/MM3 0.0 TH/MM3 CBC Comment DIFF FINAL DIFF FINAL Differential Comment Laboratory Tests Test 07/30/16 07/31/16 07/31/16 08/01/16 18:26 05:24 12:45 06:57 Sodium Level 135 MEQ/L 134 MEQ/L 135 MEQ/L 137 MEQ/L Potassium Level 5.6 MEQ/L 5.1 MEQ/L 4.6 MEQ/L 4.6 MEQ/L Chloride Level 102 MEQ/L 100 MEQ/L 103 MEQ/L 105 MEQ/L Carbon Dioxide Level 24.4 MEQ/L 21.6 MEQ/L 22.5 MEQ/L 23.5 MEQ/L Anion Gap 9 MEQ/L 12 MEQ/L 10 MEQ/L 9 MEQ/L Blood Urea Nitrogen 40 MG/DL 43 MG/DL 41 MG/DL 36 MG/DL Creatinine 1.69 MG/DL 1.77 MG/DL 1.54 MG/DL 1.48 MG/DL Estimat Glomerular Filtration 40 ML/MIN 38 ML/MIN 45 ML/MIN 47 ML/MIN Rate Random Glucose 147 MG/DL 182 MG/DL 205 MG/DL 183 MG/DL Calcium Level 9.1 MG/DL 9.3 MG/DL 8.9 MG/DL 8.8 MG/DL Total Bilirubin 0.6 MG/DL 0.4 MG/DL Aspartate Amino Transf 136 U/L 93 U/L (AST/SGOT) Alanine Aminotransferase 145 U/L 118 U/L (ALT/SGPT) Alkaline Phosphatase 202 U/L 179 U/L Total Creatine Kinase 40 U/L Total Protein 5.9 GM/DL 5.8 GM/DL Albumin 2.4 GM/DL 2.3 GM/DL Imaging Last Impressions Myocardial Perfusion Scan Nuc Med 07/25/16 0000 Signed Impressions: Service Date/Time: Monday, July 25, 2016 10:43 - CONCLUSION: Ventriculomegaly with large fixed perfusion abnormality and no evidence of stress-induced reversible abnormalities. Severe global hypokinesia with 14%% ejection fraction. RISK CATEGORY: High (>3%% Annual Mortality Rate) Brown Tejeda MD Lumbar Spine MRI 07/24/16 0000 Signed Impressions: Service Date/Time: July 18:25 - CONCLUSION: 1. Previous surgery at L4/L5 and L5/S1 with subsequent hardware removal. There are elongated fluid collections in the posterior paraspinous soft tissues on the right and left without MRI features convincing for abscess. These are presumably seromas or old hematomas. Also no evidence of osteomyelitis.. 2. Normal thecal sac and epidural space. 3. No foraminal or spinal stenosis at any level. 4. Mild bilateral facet osteoarthritis and nonspecific synovitis at L3/L4. Kwesi Hinojosa MD Abdomen/Pelvis CT 07/23/16 0000 Signed Impressions: Service Date/Time: Saturday, July 23, 2016 17:42 - CONCLUSION: 1. Diverticulosis without diverticulitis. 2. Minimal ascites. 3. Dilated stomach. 4. A few punctate of second bilateral renal calculi. 5. Small bilateral pleural effusions. 6. No abscess seen. James Wyatt MD Chest X-Ray 07/21/16 1002 Signed Impressions: Service Date/Time: Thursday, July 21, 2016 10:01 - CONCLUSION: 1. Blunting of both costophrenic angles, right greater than left suggesting some degree of effusion. 2. In addition, there is some focal increased interstitial markings in the right lower lung field suggesting some asymmetric vascular congestion or volume overload. No confluent infiltrate. 3. Dextroscoliosis of the thoracolumbar spine with associated degenerative changes Nikos Kaur MD CT Angiography 07/21/16 0000 Signed Impressions: Service Date/Time: Thursday, July 21, 2016 11:06 - CONCLUSION: 1. No evidence of pulmonary embolism. 2. Bilateral effusions and left basilar atelectasis Amos Toledo MD Physical Exam GENERAL: This is a well-nourished, well-developed patient, in no apparent distress. SKIN: No rashes, ecchymoses or lesions. Cool and dry. HEAD: Atraumatic. Normocephalic. No temporal or scalp tenderness. EYES: Pupils equal round and reactive. Extraocular motions intact. No scleral icterus. No injection or drainage. ENT: Nose without bleeding, purulent drainage or septal hematoma. Throat without erythema, tonsillar hypertrophy or exudate. Uvula midline. Airway patent. NECK: Trachea midline. Supple, nontender, no meningeal signs. CARDIOVASCULAR: HS audible. RESPIRATORY: Clear to auscultation. Breath sounds equal bilaterally. GASTROINTESTINAL: Abdomen soft, non-tender, nondistended. MUSCULOSKELETAL: Rt forearm with small abscess 2x2 cm with induration but no fluctuance. Left forearm at wrist level lanced indurated area(prior abscess site per patient ) NEUROLOGICAL: Awake and alert. Grossly nonfocal. Psych: cooperative IV line sites with no e/o infection. Assessment & Plan Remarks Coag neg staph bacteremia in pt with IVDA and prior Spine Osteomyelitis. MSSA in urine: ? translocation in urine from Staph bacteremia. Possible Endocarditis and or Spinal hardware infection. Prior MSSA hardware infection s/p removal. Bilateral forearm abscess (left at wrist level, right in mid forearm) IVDA ongoing. Abnormal Liver function tests: ? sepsis vs hepatitis related. Recs Continue Dapto IV Follow CBC with diff, CMP (need LFTs while on Dapto) and Serum CK levels. Follow cultures Follow clinically Follow urine output. to cover for me this weekend. Alina Davis MD Aug 01, 2016 15:52 Check CK levels. d/w Primary team . Alina Davis MD Aug 01, 2016 15:52
--- NOTE | 2016-08-01 16:00 | HHI.NPPN ---
Subjective Renal Failure: Acute Interval History Sitting up in bed. Renal function is better. No new events or concerns. ( Cesia Elliott) Objective Data Data 07/31/16 08/01/16 19:00 07:00 Intake Total 480 ml 660 ml Output Total 600 ml Balance -120 ml 660 ml Intake Oral 480 ml 660 ml Output Urine Total 600 ml # Voids 3 # Bowel Movements 1 Vital Signs Date Time Temp Pulse Resp B/P Pulse Ox O2 Delivery O2 Flow Rate FiO2 08/01/16 12:00 96.0 96 18 121/60 91 08/01/16 09:11 94 08/01/16 09:07 93 Nasal Cannula 2.00 08/01/16 09:00 18 08/01/16 08:00 97.0 73 18 116/66 93 08/01/16 05:11 93 Nasal Cannula 08/01/16 04:00 96.0 73 18 112/80 98 08/01/16 00:00 97.1 72 18 115/72 95 07/31/16 20:45 Room Air 07/31/16 20:00 97.5 73 18 119/72 96 07/31/16 18:14 98 Nasal Cannula 2.00 07/31/16 18:14 98 Nasal Cannula 2.00 07/31/16 16:00 97.4 74 18 106/64 98 (Cesia Elliott) -: 08/01/16 0657 08/01/16 0657 Imaging Last 72 hours Impressions Renal Ultrasound 07/31/16 1517 Signed Impressions: Service Date/Time: July 20:19 - CONCLUSION: No evidence of hydronephrosis. Posterior bladder wall thickening or dependent debris. Ascites. Kwesi Coleman MD (Cesia Elliott) Physical Exam General Appearance: Well Developed, Well Nourished, No Acute Distress, Comfortable ( Cesia Elliott) Eyes Eye Exam: Pupils Equal (Cesia Elliott) Throat Throat Exam: Oral Mucosa [place] & Moist (Cesia Elliott) Neck Neck Exam: Neck Supple (Cesia Elliott) Pulmonary Resp Exam: Clear Bilaterally, Breath Sounds Equal, No Distress (Cesia Elliott) Cardiology CV Exam: Regular, Normal Sinus Rhythm, Good Perfusion (Cesia Elliott) Gastrointestinal/Abdomen GI Exam: Soft, Non-Tender, Bowel Sounds Present (Cesia Elliott) Musculoskeletal MS Exam: Joints Intact, Normal Tone (Cesia Elliott) Integumentary Skin Exam: Clear, Warm, Dry, Intact (Cesia Elliott) Extremeties Extremities Exam: No Edema, Pedal Pulses Palpable (Cesia Elliott) Neurologic Neuro Exam: Alert, Awake, Oriented, Speech Clear, Moving All Extremities ( Cesia Elliott) Psychiatric Psych Exam: Appropriate Responses (Cesia Elliott) Assessment/Plan Discussed Condition With: Patient Problem List: (1) MILLER (acute kidney injury) Plan: non oliguric MILLER MILLER was most likely medication related, AIN, all offending agents had been stopped renal function has improved Repeat UA negative renal US unremarkable off IVF, he is tolerating oral food/fluids Monitor renal function. (2) Paraspinal abscess Plan: on Daptomycin s/p I&D (3) Polysubstance abuse Plan: He admits to using Methamphetamine and Cocaine. interested in stopping (Cesia Elliott) Plan Renal function has improved. Patient was seen and examined. Agree with above assessment and plan. Taper off fluids. (Tigre Ji MD) Cesia Elliott Aug 01, 2016 16:00 Tigre Ji MD Aug 01, 2016 16:29
[2016-08-01 16:23] LABS: FERRITIN 47 NG/ML (26-388); TRANSFERRIN IRON PROFILE 250 MG/DL (200-360)
[2016-08-02] VITALS (8 sets, daily range): BP systolic 111–126; BP diastolic 67–83; PULSE 67–81; RESP 18; TEMP 96–98.1; O2SAT 91–97
[2016-08-02] MEDS: INSULIN ASPART SUPPLEMENTAL SCALE SQ SCH ×4 (06:04→20:15)
[2016-08-02 08:28] LABS: AUTOMATED NEUTROPHIL # 4.7 TH/MM3 (1.8-7.7); BASOPHIL % 0.7 % (0.0-2.0); EOSINOPHIL # 0.1 TH/MM3 (0-0.4); EOSINOPHIL % 1.3 % (0.0-4.0); HEMATOCRIT 45.7 % (39.0-51.0); HEMO FLAGS DIFF FINAL; LYMPH % 20.3 % (9.0-44.0); LYMPHOCYTE # 1.4 TH/MM3 (1.0-4.8); MEAN CELL VOLUME 88.9 FL (80.0-100.0); MEAN CORPUSCULAR HEMOGLOBIN 28.7 PG (27.0-34.0); MEAN CORPUSCULAR HGB CONC 32.3 % (32.0-36.0); MONO % 8.2 % (0.0-8.0); NEUT % 69.5 % (16.0-70.0); PLATELET COUNT 291 TH/MM3 (150-450); RED BLOOD COUNT 5.14 MIL/MM3 (4.50-5.90); RED CELL DISTRIBUTION WIDTH 15.2 % (11.6-17.2); WHITE BLOOD COUNT 6.7 TH/MM3 (4.0-11.0)
[2016-08-02 08:54] LABS: ALKALINE PHOSPHATASE 210 U/L (45-117); ALT (GPT) 100 U/L (12-78); ANION GAP 6 MEQ/L (5-15); AST (GOT) 58 U/L (15-37); BICARBONATE 29.3 MEQ/L (21.0-32.0); BLOOD UREA NITROGEN 32 MG/DL (7-18); CHLORIDE 103 MEQ/L (98-107); GLOMERULAR FILTRATION RATE 50 ML/MIN (>89); POTASSIUM 4.5 MEQ/L (3.5-5.1); SODIUM (NA) 138 MEQ/L (136-145); TOTAL BILIRUBIN ADULT 0.7 MG/DL (0.2-1.0)
[2016-08-02] MEDS: SERTRALINE HCL 50 MG TAB PO SCH (09:08)
[2016-08-02] MEDS: CARVEDILOL 3.125 MG TAB PO SCH ×2 (09:08→20:14)
[2016-08-02] MEDS: SODIUM CHLORIDE 0.9% FLUSH 5 ML FLUSH FLUSH SCH ×2 (09:09→20:15)
[2016-08-02] MEDS: RESP: ALBUTEROL 2.5 MG/3 ML NEB (PRN) INH ×2 (09:52→15:55)
--- NOTE | 2016-08-02 10:05 | RADRPT ---
EXAM DATE/TIME: 08/02/2016 08:13 [facility] COMPARISON: No previous studies available for comparison. INDICATIONS : Abnormal labs. MEDICAL HISTORY : Hypercholesterolemia. Hypertension. Methicillin-resistant Staphylococcus aureus. CVA. Dyspnea. Diabet es. Multisubstance abuse. Endocarditis. SURGICAL HISTORY : Cholecystectomy. Appendectomy. ENCOUNTER: Initial ACUITY: 1 day PAIN SCORE: 7/10 LOCATION: Bilateral upper quadrant MEASUREMENTS: LIVER: 19.7 cm length COMMON DUCT: 6 mm RIGHT KIDNEY: 12.1 x 4.4 x 4.2 cm SPLEEN: 10.8 cm length FINDINGS: LIVER: The liver is heterogeneous and somewhat lobular. No focal defects are demonstrated. The portal system is patent. There is a trace of free fluid adjacent to the liver. COMMON DUCT: No intraluminal mass or stone visualized. GALLBLADDER: Surgically removed PANCREAS: Not visualized RIGHT KIDNEY: No hydronephrosis, stone or mass. SPLEEN: No focal lesion. Trace of fluid adjacent to the spleen. CONCLUSION: 1. The liver is heterogeneous and mildly lobular suggestive of hepatocellular disease such as cirrhos is. 2. There is a trace of fluid adjacent to the liver.. 3. The pancreas was not visualized. Robert Johnson MD on August 02, 2016 at 10:01 Board Certified Radiologist. This report was verified electronically.
--- NOTE | 2016-08-02 10:12 | HHI.NPPN ---
Subjective Renal Failure: Acute Interval History Renal function continues to improve. Review of Systems General Constitutional: Fatigue Objective Data Data 08/01/16 08/02/16 19:00 07:00 Intake Total 1160 ml 360 ml Balance 1160 ml 360 ml Intake Oral 960 ml 360 ml IV Total 200 ml # Voids 3 4 # Bowel Movements 1 2 Vital Signs Date Time Temp Pulse Resp B/P Pulse Ox O2 Delivery O2 Flow Rate FiO2 08/02/16 09:52 95 21 08/02/16 07:48 96.0 67 18 115/70 94 08/02/16 04:00 98.1 76 18 124/79 96 08/02/16 00:00 97.4 68 18 111/67 91 08/01/16 21:38 98 Nasal Cannula 2.00 08/01/16 20:30 Room Air 08/01/16 20:00 97.5 105 18 135/84 98 08/01/16 16:00 98.4 71 18 127/87 97 08/01/16 12:00 96.0 96 18 121/60 91 -: 08/02/16 0726 08/02/16 0726 Physical Exam General Appearance: Well Developed, Well Nourished, No Acute Distress, Comfortable Eyes Eye Exam: Pupils Equal Throat Throat Exam: Oral Mucosa [place] & Moist Neck Neck Exam: Neck Supple Pulmonary Resp Exam: Clear Bilaterally, Breath Sounds Equal, No Distress Cardiology CV Exam: Regular, Normal Sinus Rhythm, Good Perfusion Gastrointestinal/Abdomen GI Exam: Soft, Non-Tender, Bowel Sounds Present Musculoskeletal MS Exam: Joints Intact, Normal Tone Integumentary Skin Exam: Clear, Warm, Dry, Intact Extremeties Extremities Exam: No Edema, Pedal Pulses Palpable Neurologic Neuro Exam: Alert, Awake, Oriented, Speech Clear, Moving All Extremities Psychiatric Psych Exam: Appropriate Responses Assessment/Plan Discussed Condition With: Patient Problem List: (1) MILLER (acute kidney injury) Plan: Improving. Due to combination of aggressive diuresis, use of NSAIDs and Vancomycin toxicity , all at the same time. Offending agents have been stopped. renal function has improved Repeat UA negative renal US unremarkable off IVF, he is tolerating oral food/fluids Monitor renal function. (2) Paraspinal abscess Plan: on Daptomycin s/p I&D (3) Polysubstance abuse Plan: He admits to using Methamphetamine and Cocaine. interested in stopping Plan I will see him as needed. Tigre Ji MD Aug 02, 2016 10:12
--- NOTE | 2016-08-02 11:30 | HHI.FPPN ---
Subjective Remarks No events overnight. Afebrile, vitals are within normal limits. Comfortable this morning. States he feels the same as yesterday. Denies any fevers, chills, night sweats. Reports continued pain around IR drainage site. Denies chest pain , shortness of breath, pain/swelling of either lower extremity. Ambulating OOB within room. (Marcos Cameron MD R1) Objective Vitals Vital Signs Date Time Temp Pulse Resp B/P Pulse Ox O2 Delivery O2 Flow Rate FiO2 08/02/16 09:52 95 21 08/02/16 07:48 96.0 67 18 115/70 94 08/02/16 04:00 98.1 76 18 124/79 96 08/02/16 00:00 97.4 68 18 111/67 91 08/01/16 21:38 98 Nasal Cannula 2.00 08/01/16 20:30 Room Air 08/01/16 20:00 97.5 105 18 135/84 98 08/01/16 16:00 98.4 71 18 127/87 97 08/01/16 12:00 96.0 96 18 121/60 91 I/O 08/01/16 08/01/16 08/01/16 08/02/16 08/02/16 08/02/16 07:00 15:00 23:00 07:00 15:00 23:00 Intake Total 480 ml 1060 ml 220 ml 240 ml Balance 480 ml 1060 ml 220 ml 240 ml Intake Oral 480 ml 960 ml 120 ml 240 ml IV Total 100 ml 100 ml # Voids 1 3 2 2 # Bowel Movements 1 2 0 (Marcos Cameron MD R1) Result Diagram: 08/02/1672508/02/16 07 Objective Remarks GEN: Thin male in no acute distress. Lying comfortably in bed. CV: Regular rate and rhythm without obvious murmurs. LUNGS: Decreased air movement bilaterally, appears to have poor effort. No wheezes, rales, rhonchi. EXT: No edema. No calf tenderness. NEURO/PSYCH: Awake, alert. Appropriate insight and judgment. Normal speech. ( Marcos Cameron MD R1) A/P Assessment and Plan Attending note: Patient seen and examined. Case reviewed and discussed with resident team. Agree with plan of care as discussed with physician and documented in the resident note. Discharge Planning Pending ID recommendations and improvement in renal function * CM has been able set to up outpatient IV ABX at [facility] Dr. Loaiza (Marcos Cameron MD R1) Attending Attestation Pt. examined and case discussed with resident physicians I have read the above note and agree with the assessment/plan as discussed with me I was involved in all medical decision making for this patient. Robert Santiago MD (Robert Santiago MD) Problem List: (1) Bacteremia Status: Acute Plan: Concern for endocarditis due to presence of Staph Aureus in urine. Will need treatment x6 wks due to history of osteomyelitis and IVD use. Suspect cultures have been negative due to the start of abx prior to obtaining all cultures, including spine. Echo negative for vegetations. -blood cultures and paraspinal fluid collection unremarkable. (Fungal culture pending) * 1 blood culture positive is likely due to contamination -urine culture: Staph Aureus -I&D of left wrist abscess wound culture: MRSA Imaging: * MRI of lumbar spine: elongated fluid collections in the posterior paraspinal soft tissues on the right and left without MRI features convincing for abscess. These are presumably seroma or hematomas. Also no evidence of osteomyelitis. * CT abdomen: No abscesses seen ID consulted: appreciate recommendations * Stopped Vancomycin (07/22-07/30), Rocephin (07/21-07/31) and Linezolid (07/31) due to renal function. * Started Daptomycin (started 07/31). Monitor LFTs and CK. * No PICC till cleared by ID * Consulted GI and nephrology Neurosurgery consulted: not a surgical candidate. Signed off (2) MILLER (acute kidney injury) Status: Acute Plan: Found to have an acute increase in Cr from a baseline around 1.0. Etiology may be due to abx versus NSAIDs -Concern for acute interstitial nephritis but urine eosinophils were negative -Cr seems to be slowly improving -Fluids discontinued -Vancomycin discontinued, now receiving Daptomycin -Continue to monitor renal function -Repeat UA negative -Avoid nephrotoxic medications Nephrology consulted: appreciate recommendations. * Renal US unremarkable: no evidence for hydronephrosis. Posterior bladder wall thickening or dependent debris. * MILLER most likely medication related, AIN (3) CHF (congestive heart failure) Status: Chronic Plan: Initially presented for chest pain and shortness of breath. Echo from 2015 showed an EF of 55-60%. BNP on admission was significantly elevated. Suspect CHF contributing to symptoms of chronic malaise -ACS evaluation negative -Repeat echo with an EF of 15-20% Cardiology consulted: Appreciate recommendations * Nuclear stress test showing ventriculomegaly with large fixed perfusion abnormality and no evidence of stress-induced reversible abnormalities. Severe global hypokinesia with 14% ejection fraction. * Probably non-ischemic etiology * OK to dc from a cardiac standpoint Imaging: * CXR: Blunting of both costophrenic angles with some degree of effusion. Some focal increased interstitial markings the right lower lung suggesting some asymmetric basilar congestion or volume overload. No confluent infiltrate. * CTA: No evidence of PE. Bilateral effusions left basilar atelectasis. Medications: *Medications on hold until renal function improves * HOLD Lasix 20 mg po daily * HOLD KCL 10meq po daily * HOLD Aspirin 81mg daily * HOLD Lisinopril 5 mg po daily * Continue Coreg 3.125 mg po q12h (4) Elevated liver enzymes Status: Acute Plan: Persistently elevated liver enzymes along with an elevated INR -LFTs continuing to improve -Hepatitis panel and HIV negative -GI consulted: appreciate recommendations -AFP normal -IAN, [id number], ceruloplasmin, anti-smooth muscle Ab pending -Liver US: heterogeneous and mildly lobular suggestive of hepatocellular disease such as cirrhosis. Trace fluid adjacent to the liver. -Avoid hepatotoxic medications (5) UTI (urinary tract infection) Status: Acute Plan: Plan as above under bacteremia (6) DM (diabetes mellitus) Status: Chronic Plan: -Continue accuchecks ACHS, low dose sliding scale -Metformin held due to need for contrast studies. Anticipate discharging on medication if renal function is adequate. -Will add basal insulin if needed (7) Polysubstance abuse Status: Chronic Plan: Patient admits to marijuana, Dilaudid, cocaine, methamphetamine drug use. UDS positive for cocaine and methamphetamine (8) Nutrition, metabolism, and development symptoms Status: Acute Plan: Nutrition: Diabetic diet Fluids: Discontinued Electrolytes: unremarkable, continue to monitor DVT prophylaxis: Lovenox resumed 07/28 GI prophylaxis: Not indicated Anxiety: Xanax 0.25mg PRN, Zoloft 50 mg po daily started 07/25 (sertraline held on 07/31 due to interaction with linezolid, restarted medication 08/01) (Marcos Cameron MD R1) Problem Qualifiers (1) CHF (congestive heart failure): Qualified Code: I50.21 - Acute systolic congestive heart failure (2) DM (diabetes mellitus): Qualified Code: E11.9 - Type 2 diabetes mellitus without complication, without long-term current use of insulin Marcos Cameron MD R1 Aug 02, 2016 11:30 Robert Santiago MD Aug 02, 2016 12:35
[2016-08-02] MEDS: SODIUM CHLORIDE 0.9% IV SCH (11:43)
[2016-08-02] MEDS: DAPTOMYCIN IV SCH (11:43)
[2016-08-02] MEDS: ENOXAPARIN SODIUM 40 MG/0.4 ML SYRINGE SQ SCH (12:51)
[2016-08-03] VITALS: BP 116/89; PULSE 73; RESP 17; TEMP 98.3; O2SAT 97
[2016-08-03 04:00] VITALS: BP 124/74; PULSE 78; RESP 18; TEMP 97.6; O2SAT 96
[2016-08-03] MEDS: INSULIN ASPART SUPPLEMENTAL SCALE SQ SCH ×4 (05:49→21:00)
[2016-08-03 07:08] LABS: BICARBONATE 29.9 MEQ/L (21.0-32.0); POTASSIUM 4.3 MEQ/L (3.5-5.1)
[2016-08-03 08:00] VITALS: BP 123/78; PULSE 77; RESP 18; TEMP 97.3; O2SAT 95
[2016-08-03] MEDS: RESP: ALBUTEROL 2.5 MG/3 ML NEB (PRN) INH (08:53)
[2016-08-03 08:54] VITALS: O2SAT 94
[2016-08-03] MEDS: SERTRALINE HCL 50 MG TAB PO SCH (09:38)
[2016-08-03] MEDS: SODIUM CHLORIDE 0.9% FLUSH 5 ML FLUSH FLUSH SCH ×2 (09:38→21:38)
[2016-08-03] MEDS: CARVEDILOL 3.125 MG TAB PO SCH ×2 (09:38→21:39)
[2016-08-03 12:00] VITALS: BP 139/87; PULSE 75; RESP 18; TEMP 97.2; O2SAT 97
[2016-08-03] MEDS: ENOXAPARIN SODIUM 40 MG/0.4 ML SYRINGE SQ SCH (12:35)
[2016-08-03] MEDS: DAPTOMYCIN IV SCH (12:35)
[2016-08-03] MEDS: SODIUM CHLORIDE 0.9% IV SCH (12:35)
--- NOTE | 2016-08-03 14:15 | HHI.FPPN ---
Subjective Remarks No events overnight. Afebrile, vitals are stable. Patient denies any fevers, chills, or night sweats. He denies chest pain, shortness of breath, abdominal pain, headaches, pain or swelling of either lower extremity. He states he has been ambulating OOB without lightheadedness or dizziness. Objective Vitals Vital Signs Date Time Temp Pulse Resp B/P Pulse Ox O2 Delivery O2 Flow Rate FiO2 08/03/16 12:00 97.2 75 18 139/87 97 08/03/16 08:54 94 21 08/03/16 08:00 97.3 77 18 123/78 95 08/03/16 04:00 97.6 78 18 124/74 96 08/03/16 00:00 98.3 73 17 116/89 97 08/02/16 20:38 96 08/02/16 20:00 98.1 81 18 126/80 96 08/02/16 16:00 97.5 77 18 125/83 97 I/O 08/02/16 08/02/16 08/02/16 08/03/16 08/03/16 08/03/16 07:00 15:00 23:00 07:00 15:00 23:00 Intake Total 240 ml 1080 ml 360 ml 240 ml Balance 240 ml 1080 ml 360 ml 240 ml Intake Oral 240 ml 960 ml 360 ml 240 ml IV Total 120 ml # Voids 2 3 2 2 # Bowel Movements 0 0 0 0 Result Diagram: 08/02/16 0726 08/03/16 0606 Objective Remarks GEN: Thin male in no acute distress. Lying comfortably in bed. CV: Regular rate and rhythm without obvious murmurs. LUNGS: Decreased air movement bilaterally, appears to have poor effort. No wheezes, rales, rhonchi. EXT: No edema. No calf tenderness. NEURO/PSYCH: Awake, alert. Appropriate insight and judgment. Normal speech. A/P Assessment and Plan Attending note: Patient seen and examined. Case reviewed and discussed with resident team. Agree with plan of care as discussed with physician and documented in the resident note. Discharge Planning Pending ID recommendations and improvement in renal function. Ann has declined patient due to his drug use and Luis Alberto has also declined patient due to expense of medications. CM assisting with discharge plans. sdw Dr. Lacey Problem List: (1) Bacteremia Status: Acute Plan: Concern for endocarditis due to presence of Staph Aureus in urine. Will need treatment x6 wks due to history of osteomyelitis and IVD use. Suspect cultures have been negative due to the start of abx prior to obtaining all cultures, including spine. Echo negative for vegetations. -blood cultures and paraspinal fluid collection unremarkable * 1 blood culture positive is likely due to contamination -urine culture: Staph Aureus -I&D of left wrist abscess wound culture: MRSA -Fungal culture no growth after 1 week Imaging: * MRI of lumbar spine: elongated fluid collections in the posterior paraspinal soft tissues on the right and left without MRI features convincing for abscess. These are presumably seroma or hematomas. Also no evidence of osteomyelitis. * CT abdomen: No abscesses seen ID consulted: appreciate recommendations * Stopped Vancomycin (07/22-07/30), Rocephin (07/21-07/31) and Linezolid (07/31) due to renal function. * Started Daptomycin (started 07/31). Monitor LFTs and CK. * No PICC till cleared by ID * Consulted GI and nephrology Neurosurgery consulted: not a surgical candidate. Signed off (2) MILLER (acute kidney injury) Status: Acute Plan: Found to have an acute increase in Cr from a baseline around 1.0. Etiology may be due to abx versus NSAIDs -Concern for acute interstitial nephritis but urine eosinophils were negative -Cr seems to be slowly improving, 1.46 today -Fluids discontinued -Vancomycin discontinued, now receiving Daptomycin -Continue to monitor renal function -Repeat UA negative -Avoid nephrotoxic medications Nephrology consulted: appreciate recommendations. * Renal US unremarkable: no evidence for hydronephrosis. Posterior bladder wall thickening or dependent debris. * MILLER most likely medication related, AIN (3) CHF (congestive heart failure) Status: Chronic Plan: Initially presented for chest pain and shortness of breath. Echo from 2015 showed an EF of 55-60%. BNP on admission was significantly elevated. Suspect CHF contributing to symptoms of chronic malaise -ACS evaluation negative -Repeat echo with an EF of 15-20% Cardiology consulted: Appreciate recommendations * Nuclear stress test showing ventriculomegaly with large fixed perfusion abnormality and no evidence of stress-induced reversible abnormalities. Severe global hypokinesia with 14% ejection fraction. * Probably non-ischemic etiology * OK to dc from a cardiac standpoint Imaging: * CXR: Blunting of both costophrenic angles with some degree of effusion. Some focal increased interstitial markings the right lower lung suggesting some asymmetric basilar congestion or volume overload. No confluent infiltrate. * CTA: No evidence of PE. Bilateral effusions left basilar atelectasis. Medications: *Medications on hold until renal function improves * HOLD Lasix 20 mg po daily * HOLD KCL 10meq po daily * HOLD Aspirin 81mg daily * HOLD Lisinopril 5 mg po daily * Continue Coreg 3.125 mg po q12h (4) Elevated liver enzymes Status: Acute Plan: Persistently elevated liver enzymes along with an elevated INR -LFTs continuing to improve -Hepatitis panel and HIV negative -GI consulted: appreciate recommendations -AFP normal -IAN, nvflq-[id number], ceruloplasmin, anti-smooth muscle Ab pending -Liver US: heterogeneous and mildly lobular suggestive of hepatocellular disease such as cirrhosis. Trace fluid adjacent to the liver. -Avoid hepatotoxic medications (5) UTI (urinary tract infection) Status: Acute Plan: Plan as above under bacteremia (6) DM (diabetes mellitus) Status: Chronic Plan: -Continue accuchecks ACHS, low dose sliding scale -Metformin held due to need for contrast studies. Anticipate discharging on medication if renal function is adequate. -Will add basal insulin if needed (7) Polysubstance abuse Status: Chronic Plan: Patient admits to marijuana, Dilaudid, cocaine, methamphetamine drug use. UDS positive for cocaine and methamphetamine (8) Nutrition, metabolism, and development symptoms Status: Acute Plan: Nutrition: Diabetic diet Fluids: Discontinued Electrolytes: unremarkable, continue to monitor DVT prophylaxis: Lovenox resumed 07/28 GI prophylaxis: Not indicated Anxiety: Xanax 0.25mg PRN, Zoloft 50 mg po daily started 07/25 (sertraline held on 07/31 due to interaction with linezolid, restarted medication 08/01) Problem Qualifiers (1) CHF (congestive heart failure): Qualified Code: I50.21 - Acute systolic congestive heart failure (2) DM (diabetes mellitus): Qualified Code: E11.9 - Type 2 diabetes mellitus without complication, without long-term current use of insulin Marcos Cameron MD R1 Aug 03, 2016 14:15
--- NOTE | 2016-08-03 18:47 | HHI.FPPN ---
Addendum to progress note ADDENDUM Reason for addendum: Additonal documentation Additional information Off-service Note 71 year old male with h/o IVDA admitted due to generalized malaise and endocarditis evaluation found to be bacteremic and with an abscess growing MRSA. He was initially treated with Vancomycin, however developed an MILLER likely due to the Vancomycin and combination of nephrotoxic medications. Also developed an acute liver injury. He was switched to Daptomycin. Kidneys and liver both seem to be steadily improving. Once more medically stable, he will need placement at a nursing facility that will accept him. Marcos Cameron MD R1 Aug 03, 2016 18:47
[2016-08-03 20:00] VITALS: BP 132/85; PULSE 85; RESP 17; TEMP 97.5; O2SAT 97
[2016-08-04] VITALS (7 sets, daily range): BP systolic 133–153; BP diastolic 78–97; PULSE 81–93; RESP 12–20; TEMP 95.9–98.2; O2SAT 94–98
[2016-08-04] MEDS: INSULIN ASPART SUPPLEMENTAL SCALE SQ SCH ×4 (05:52→22:09)
--- NOTE | 2016-08-04 08:43 | HHI.GIFU ---
Subjective Remarks Resting in bed. States that he has some epigastric discomfort, mild nausea without vomiting. Tolerating diet. When asked again about ETOH hx, he reports that he did drink heavily for about 20-30 years. (Kathy Mendieta) Objective Vitals I&O Vital Signs Date Time Temp Pulse Resp B/P Pulse Ox O2 Delivery O2 Flow Rate FiO2 08/04/16 04:00 97.9 82 18 138/89 95 08/04/16 00:00 98.2 81 18 136/87 95 08/03/16 20:00 97.5 85 17 132/85 97 08/03/16 13:43 18 08/03/16 12:00 97.2 75 18 139/87 97 08/03/16 08:54 94 21 I/O 08/03/16 08/03/16 08/03/16 08/04/16 08/04/16 08/04/16 07:00 15:00 23:00 07:00 15:00 23:00 Intake Total 240 ml 390 ml Balance 240 ml 390 ml Intake Oral 240 ml 240 ml IV Total 150 ml # Voids 2 2 # Bowel Movements 0 0 Imaging Last Impressions Liver Ultrasound 08/02/16 0000 Signed Impressions: Service Date/Time: Tuesday, August 02, 2016 08:13 - CONCLUSION: 1. The liver is heterogeneous and mildly lobular suggestive of hepatocellular disease such as cirrhosis. 2. There is a trace of fluid adjacent to the liver.. 3. The pancreas was not visualized. Robert Johnson MD Renal Ultrasound 07/31/16 1517 Signed Impressions: Service Date/Time: July 20:19 - CONCLUSION: No evidence of hydronephrosis. Posterior bladder wall thickening or dependent debris. Ascites. Kwesi Coleman MD Abscess Drainage X-Ray 07/26/16 0000 Signed Impressions: Service Date/Time: Tuesday, July 26, 2016 16:35 - CONCLUSION: Uncomplicated aspiration of complex fluid collections in the lower back bilaterally as detailed above. Nikos Kaur MD Soft Tissue Ultrasound 07/25/16 1834 Signed Impressions: Service Date/Time: Monday, July 25, 2016 23:13 - CONCLUSION: In the parasagittal lower back, deep to the subcutaneous tissues, there are bilateral mixed cystic and solid lesion which measure up to 6 cm in size. Kalyan Hayes MD Myocardial Perfusion Scan Nuc Med 07/25/16 0000 Signed Impressions: Service Date/Time: Monday, July 25, 2016 10:43 - CONCLUSION: Ventriculomegaly with large fixed perfusion abnormality and no evidence of stress-induced reversible abnormalities. Severe global hypokinesia with 14%% ejection fraction. RISK CATEGORY: High (>3%% Annual Mortality Rate) Brown Tejeda MD Lumbar Spine MRI 07/24/16 0000 Signed Impressions: Service Date/Time: July 18:25 - CONCLUSION: 1. Previous surgery at L4/L5 and L5/S1 with subsequent hardware removal. There are elongated fluid collections in the posterior paraspinous soft tissues on the right and left without MRI features convincing for abscess. These are presumably seromas or old hematomas. Also no evidence of osteomyelitis.. 2. Normal thecal sac and epidural space. 3. No foraminal or spinal stenosis at any level. 4. Mild bilateral facet osteoarthritis and nonspecific synovitis at L3/L4. Kwesi Hinojosa MD Abdomen/Pelvis CT 07/23/16 0000 Signed Impressions: Service Date/Time: Saturday, July 23, 2016 17:42 - CONCLUSION: 1. Diverticulosis without diverticulitis. 2. Minimal ascites. 3. Dilated stomach. 4. A few punctate of second bilateral renal calculi. 5. Small bilateral pleural effusions. 6. No abscess seen. James Wyatt MD Chest X-Ray 07/21/16 1002 Signed Impressions: Service Date/Time: Thursday, July 21, 2016 10:01 - CONCLUSION: 1. Blunting of both costophrenic angles, right greater than left suggesting some degree of effusion. 2. In addition, there is some focal increased interstitial markings in the right lower lung field suggesting some asymmetric vascular congestion or volume overload. No confluent infiltrate. 3. Dextroscoliosis of the thoracolumbar spine with associated degenerative changes Nikos Kaur MD CT Angiography 07/21/16 0000 Signed Impressions: Service Date/Time: Thursday, July 21, 2016 11:06 - CONCLUSION: 1. No evidence of pulmonary embolism. 2. Bilateral effusions and left basilar atelectasis Amos Toledo MD Physical Exam HEENT: Normocephalic; atraumatic; no jaundice. CHEST: Chest is clear to auscultation and percussion. CARDIAC: RRR ABDOMEN: Soft, nondistended, mild epigastric tenderness; no hepatosplenomegaly ; bowel sounds are present in all four quadrants. EXTREMITIES: No clubbing, cyanosis, or edema. SKIN: Normal; no rash; no jaundice. FIELD CROP GROWER: No focal deficits; alert and oriented times three. (Kathy Mendieta) Assessment and Plan Plan ASSESSMENT: - Elevated LFTs. Pt with hx of IVDA, admitted for bacteremia/possible endocarditis. GI consulted for elevated LFTs. On admission, he had elevated LFTs with T. Bili 0.9, AST 203, ALT 136, ALk Phosph 192. These have been trending down. Abdomen/Pelvis CT (07/23/16)-----> 1. Diverticulosis without diverticulitis. 2. Minimal ascites. 3. Dilated stomach. 4. A few punctate of second bilateral renal calculi. 5. Small bilateral pleural effusions. 6. No abscess seen. He denies any known history of liver disease in himself or other family members. Liver Ultrasound (08/02/16)--> 1. The liver is heterogeneous and mildly lobular suggestive of hepatocellular disease such as cirrhosis. 2. There is a trace of fluid adjacent to the liver. 3. The pancreas was not visualized. He denies any hx of cirrhosis, although he now admits to drinking heavily x 30-40 years. No GI symptoms. He has been on ceftriaxone, Bactrim DS, Vancomycin, Zyvox. He is currently on Daptomycin per ID recommendations. Of note he does have a hx of antiphospholipid antibody syndrome, but went off his coumadin 6-7 years ago. Hepatitis profile negative. AFP 1.6, Ferritin 47, Iron Saturation 63, Ceruloplasmin pending, Alpha 1 Antitrypsin pending, IAN pending, ASMA pending , AMA pending. Probable underlying liver cirrhosis related to ETOH abuse, aggravated by IVDA, infection, and antibiotic use. LFTs cont. to improve. On 08/02, T. Bili 0.7, AST 58, ALT 100, Alk Phosph 210. - Bacteremia with Staph Sp Coagulase Negative. Imaging revealed paraspinal soft tissue fluid collection and he was evaluated by NSx, who feels this is old seroma as there is no enhancement and the radiologist concurs with this impression. He was evaluated by neurosurgery and they have signed off. - MSSA in urine, bilateral forearm abscess. Abx per ID - IVDA, ongoing, last 3 weeks ago with methamphetamines and crack PLAN: - SHI - Await IAN, ASMA, AMA - Await Ceruloplasmin, Alpha 1 Antitrypsin - Monitor LFTs - Avoid hepatotoxic meds - Further recommendations to follow based on results of above - Pt seen and examined by Dr. Roy and myself and this note is written on his behalf (Kathy Mendieta) Physician Comments Patient seen and examined Agree with above Continue with current supportive care Monitor labs (Sheng Roy MD) Kathy Mendieta Aug 04, 2016 08:43 Sheng Roy MD Aug 04, 2016 22:57
--- NOTE | 2016-08-04 08:57 | HHI.FPPN ---
Subjective Remarks Pt seen and examined this morning. No acute events overnight. AFVSS. Pt reports central chest discomfort with deep inspiration, which extends into his upper abdomen. This has not changed in recent days. He denies shortness of breath, headaches, constipation, diarrhea, leg pain. (Jean Marie Shaffer MD R2) Objective Vitals Vital Signs Date Time Temp Pulse Resp B/P Pulse Ox O2 Delivery O2 Flow Rate FiO2 08/04/16 04:00 97.9 82 18 138/89 95 08/04/16 00:00 98.2 81 18 136/87 95 08/03/16 20:00 97.5 85 17 132/85 97 08/03/16 13:43 18 08/03/16 12:00 97.2 75 18 139/87 97 I/O 08/03/16 08/03/16 08/03/16 08/04/16 08/04/16 08/04/16 07:00 15:00 23:00 07:00 15:00 23:00 Intake Total 240 ml 390 ml Balance 240 ml 390 ml Intake Oral 240 ml 240 ml IV Total 150 ml # Voids 2 2 # Bowel Movements 0 0 (Jean Marie Shaffer MD R2) Result Diagram: 08/02/16 0726 08/03/16 0606 Objective Remarks GEN: Thin male in no acute distress. Lying comfortably in bed. CV: Regular rate and rhythm without obvious murmurs. LUNGS: Decreased air movement bilaterally, appears to have poor effort. No wheezes, rales, rhonchi. EXT: No edema. No calf tenderness. NEURO/PSYCH: Awake, alert. Appropriate insight and judgment. Normal speech. ( Jean Marie Shaffer MD R2) A/P Assessment and Plan Attending note: Patient seen and examined. Case reviewed and discussed with resident team. Agree with plan of care as discussed with physician and documented in the resident note. Discharge Planning Pending ID recommendations and improvement in renal function. [facility] has declined patient due to his drug use and [facility] has also declined patient due to expense of medications. CM assisting with discharge plans. allyw Dr. Damico wdw Dr. Santiago (Jean Marie Shaffer MD R2) Attending Attestation Pt. case discussed with resident physicians I have read the above note and agree with the assessment/plan as discussed with me I was involved in all medical decision making for this patient Robert Santiago MD (Robert Santiago MD) Problem List: (1) Bacteremia Status: Acute Plan: Concern for endocarditis due to presence of Staph Aureus in urine. Will need treatment x6 wks due to history of osteomyelitis and IVD use. Suspect cultures have been negative due to collection prior to the start of antibiotics. sEcho negative for vegetations. -blood cultures and paraspinal fluid collection cultures with no growth to date * 1 blood culture positive on 07/21 significant for coagulase negative staph, possible contaminant -urine culture: Staph Aureus -I&D of left wrist abscess wound culture: MRSA -Fungal culture no growth after 1 week Imaging: * MRI of lumbar spine: elongated fluid collections in the posterior paraspinal soft tissues on the right and left without MRI features convincing for abscess. These are presumably seroma or hematomas. Also no evidence of osteomyelitis. * CT abdomen: No abscesses seen ID consulted: appreciate recommendations * Continue Daptomycin (started 07/31). Monitor LFTs and CK, urine output. * No PICC till cleared by ID * Consulted GI and nephrology * Stopped Vancomycin (07/22-07/30), Rocephin (07/21-07/31) and Linezolid (07/31) due to renal function. (2) MILLER (acute kidney injury) Status: Acute Plan: Found to have an acute increase in Cr from a baseline around 1.0. Etiology due to aggressive diuresis, vancomycin toxicity versus NSAIDs. Nephrology consulted: appreciate recommendations. * Renal US unremarkable: no evidence for hydronephrosis. Posterior bladder wall thickening or dependent debris. * Concern for acute interstitial nephritis but urine eosinophils were negative -Cr seems to be slowly improving, 1.31 today -Fluids discontinued -Vancomycin discontinued, now receiving Daptomycin -Continue to monitor renal function -Repeat UA negative -Avoid nephrotoxic medications (3) CHF (congestive heart failure) Status: Chronic Plan: Initially presented for chest pain and shortness of breath. Echo from 2015 showed an EF of 55-60%. BNP on admission was significantly elevated. Suspect CHF contributing to symptoms of chronic malaise -ACS evaluation negative -Repeat echo with an EF of 15-20% Cardiology consulted: Appreciate recommendations * Nuclear stress test showing ventriculomegaly with large fixed perfusion abnormality and no evidence of stress-induced reversible abnormalities. Severe global hypokinesia with 14% ejection fraction. * Probably non-ischemic etiology * OK to dc from a cardiac standpoint Imaging: * CXR: Blunting of both costophrenic angles with some degree of effusion. Some focal increased interstitial markings the right lower lung suggesting some asymmetric basilar congestion or volume overload. No confluent infiltrate. * CTA: No evidence of PE. Bilateral effusions left basilar atelectasis. Medications: *Medications on hold until renal function improves * HOLD Lasix 20 mg po daily * HOLD KCL 10meq po daily * HOLD Aspirin 81mg daily * HOLD Lisinopril 5 mg po daily * Continue Coreg 3.125 mg po q12h (4) Elevated liver enzymes Status: Acute Plan: Resolved Persistently elevated liver enzymes along with an elevated INR. -LFTs within normal limits this AM -GI consulted: appreciate recommendations -AFP normal -IAN, [id number], ceruloplasmin, anti-smooth muscle Ab pending -Monitor LFTs -Liver US: heterogeneous and mildly lobular suggestive of hepatocellular disease such as cirrhosis. Trace fluid adjacent to liver. -Hepatitis panel and HIV negative -Avoid hepatotoxic medications (5) UTI (urinary tract infection) Status: Acute Plan: Plan as above under bacteremia (6) DM (diabetes mellitus) Status: Chronic Plan: -Continue accuchecks ACHS, low dose sliding scale -Patient requiring 8 units of SSI in the past 24 hours -Home Metformin held, Anticipate discharging on medication if renal function is adequate. -Will add basal insulin if needed (7) Polysubstance abuse Status: Chronic Plan: Patient admits to marijuana, Dilaudid, cocaine, methamphetamine drug use. UDS positive for cocaine and methamphetamine (8) Nutrition, metabolism, and development symptoms Status: Acute Plan: Nutrition: Diabetic diet Fluids: None, pt tolerating PO Electrolytes: unremarkable, continue to monitor DVT prophylaxis: Lovenox resumed 07/28 GI prophylaxis: Not indicated Anxiety: Xanax 0.25mg PRN, Zoloft 50 mg po daily, sertraline 50 mg po daily (Jean Marie Shaffer MD R2) Problem Qualifiers (1) CHF (congestive heart failure): Qualified Code: I50.21 - Acute systolic congestive heart failure (2) DM (diabetes mellitus): Qualified Code: E11.9 - Type 2 diabetes mellitus without complication, without long-term current use of insulin Jean Marie Shaffer MD R2 Aug 04, 2016 08:57 Robert Santiago MD Aug 04, 2016 19:05
[2016-08-04] MEDS: CARVEDILOL 3.125 MG TAB PO SCH ×2 (08:58→22:10)
[2016-08-04] MEDS: SERTRALINE HCL 50 MG TAB PO SCH (08:58)
[2016-08-04] MEDS: SODIUM CHLORIDE 0.9% FLUSH 5 ML FLUSH FLUSH SCH (08:59)
[2016-08-04 10:37] LABS: AUTOMATED NEUTROPHIL # 3.8 TH/MM3 (1.8-7.7); BASOPHIL # 0.1 TH/MM3 (0-0.2); EOSINOPHIL # 0.1 TH/MM3 (0-0.4); EOSINOPHIL % 1.9 % (0.0-4.0); HEMATOCRIT 43.3 % (39.0-51.0); HEMO FLAGS DIFF FINAL; LYMPH % 24.3 % (9.0-44.0); LYMPHOCYTE # 1.5 TH/MM3 (1.0-4.8); MEAN CELL VOLUME 87.1 FL (80.0-100.0); MEAN CORPUSCULAR HEMOGLOBIN 28.6 PG (27.0-34.0); MEAN CORPUSCULAR HGB CONC 32.8 % (32.0-36.0); MONO % 9.9 % (0.0-8.0); NEUT % 62.9 % (16.0-70.0); PLATELET COUNT 303 TH/MM3 (150-450); RED BLOOD COUNT 4.97 MIL/MM3 (4.50-5.90); RED CELL DISTRIBUTION WIDTH 15.2 % (11.6-17.2); WHITE BLOOD COUNT 6.1 TH/MM3 (4.0-11.0)
[2016-08-04 11:06] LABS: ALKALINE PHOSPHATASE 206 U/L (45-117); ALT (GPT) 67 U/L (12-78); ANION GAP 8 MEQ/L (5-15); AST (GOT) 37 U/L (15-37); BICARBONATE 26.3 MEQ/L (21.0-32.0); BLOOD UREA NITROGEN 25 MG/DL (7-18); CHLORIDE 105 MEQ/L (98-107); GLOMERULAR FILTRATION RATE 54 ML/MIN (>89); POTASSIUM 4.3 MEQ/L (3.5-5.1); SODIUM (NA) 139 MEQ/L (136-145); TOTAL BILIRUBIN ADULT 0.5 MG/DL (0.2-1.0)
[2016-08-04 11:08] LABS: CREATINE KINASE 37 U/L (39-308)
[2016-08-04] MEDS: ENOXAPARIN SODIUM 40 MG/0.4 ML SYRINGE SQ SCH (12:18)
[2016-08-04] MEDS: SODIUM CHLORIDE 0.9% IV SCH (12:18)
[2016-08-04] MEDS: DAPTOMYCIN IV SCH (12:18)
[2016-08-04] MEDS: SODIUM CHLORIDE 0.9% FLUSH 5 ML FLUSH FLUSH PRN (12:20)
--- NOTE | 2016-08-04 13:41 | HHI.IDPN ---
Subjective Subjective Remarks is a 71-year-old male with a PMH significant for IV drug use, back surgery, MSSA hardware infection followed by hardware removal. Currently admitted with back pain, multiple abscesses with different organisms in cultures. Patient is known IVDA and this can be seen in such cases. Overnight events reviewed, No fever No rash No diarrhea UO better, no of voids documented not volume. Alert and responsive. Cr improved further. ? baseline renal insufficiency. Antibiotics Dapto IV Lines Line sites with no e/o infection. Past Medical History reviewed. Allergies: Coded Allergies: Morphine (Verified Allergy, Severe, Itching, 07/21/16) *MDRO Multi-Drug Resistant Organism (Verified Adverse Reaction, Unknown, ) 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/16 Objective . Vital Signs Date Time Temp Pulse Resp B/P Pulse Ox O2 Delivery O2 Flow Rate FiO2 08/04/16 09:24 98 21 08/04/16 08:00 97.6 89 18 153/97 98 08/04/16 04:00 97.9 82 18 138/89 95 08/04/16 00:00 98.2 81 18 136/87 95 08/03/16 20:00 97.5 85 17 132/85 97 08/03/16 13:43 18 08/03/16 08/03/16 08/04/16 15:00 23:00 07:00 Intake Total 390 ml Balance 390 ml Intake Oral 240 ml IV Total 150 ml # Voids 2 # Bowel Movements 0 . Laboratory Tests Test 08/04/16 10:18 White Blood Count 6.1 TH/MM3 Red Blood Count 4.97 MIL/MM3 Hemoglobin 14.2 GM/DL Hematocrit 43.3 % Mean Corpuscular Volume 87.1 FL Mean Corpuscular Hemoglobin 28.6 PG Mean Corpuscular Hemoglobin 32.8 % Concent Red Cell Distribution Width 15.2 % Platelet Count 303 TH/MM3 Mean Platelet Volume 8.4 FL Neutrophils (%) (Auto) 62.9 % Lymphocytes (%) (Auto) 24.3 % Monocytes (%) (Auto) 9.9 % Eosinophils (%) (Auto) 1.9 % Basophils (%) (Auto) 1.0 % Neutrophils # (Auto) 3.8 TH/MM3 Lymphocytes # (Auto) 1.5 TH/MM3 Monocytes # (Auto) 0.6 TH/MM3 Eosinophils # (Auto) 0.1 TH/MM3 Basophils # (Auto) 0.1 TH/MM3 CBC Comment DIFF FINAL Differential Comment Laboratory Tests Test 08/03/16 08/04/16 06:06 10:18 Sodium Level 140 MEQ/L 139 MEQ/L Potassium Level 4.3 MEQ/L 4.3 MEQ/L Chloride Level 104 MEQ/L 105 MEQ/L Carbon Dioxide Level 29.9 MEQ/L 26.3 MEQ/L Anion Gap 6 MEQ/L 8 MEQ/L Blood Urea Nitrogen 27 MG/DL 25 MG/DL Creatinine 1.46 MG/DL 1.31 MG/DL Estimat Glomerular Filtration 48 ML/MIN 54 ML/MIN Rate Random Glucose 179 MG/DL 160 MG/DL Calcium Level 9.3 MG/DL 9.2 MG/DL Total Bilirubin 0.5 MG/DL Aspartate Amino Transf 37 U/L (AST/SGOT) Alanine Aminotransferase 67 U/L (ALT/SGPT) Alkaline Phosphatase 206 U/L Total Creatine Kinase 37 U/L Total Protein 6.5 GM/DL Albumin 2.6 GM/DL Imaging Last Impressions Myocardial Perfusion Scan Nuc Med 07/25/16 0000 Signed Impressions: Service Date/Time: Monday, July 25, 2016 10:43 - CONCLUSION: Ventriculomegaly with large fixed perfusion abnormality and no evidence of stress-induced reversible abnormalities. Severe global hypokinesia with 14%% ejection fraction. RISK CATEGORY: High (>3%% Annual Mortality Rate) Brown Tejeda MD Lumbar Spine MRI 07/24/16 0000 Signed Impressions: Service Date/Time: July 18:25 - CONCLUSION: 1. Previous surgery at L4/L5 and L5/S1 with subsequent hardware removal. There are elongated fluid collections in the posterior paraspinous soft tissues on the right and left without MRI features convincing for abscess. These are presumably seromas or old hematomas. Also no evidence of osteomyelitis.. 2. Normal thecal sac and epidural space. 3. No foraminal or spinal stenosis at any level. 4. Mild bilateral facet osteoarthritis and nonspecific synovitis at L3/L4. Kwesi Hinojosa MD Abdomen/Pelvis CT 07/23/16 0000 Signed Impressions: Service Date/Time: Saturday, July 23, 2016 17:42 - CONCLUSION: 1. Diverticulosis without diverticulitis. 2. Minimal ascites. 3. Dilated stomach. 4. A few punctate of second bilateral renal calculi. 5. Small bilateral pleural effusions. 6. No abscess seen. James Wyatt MD Chest X-Ray 07/21/16 1002 Signed Impressions: Service Date/Time: Thursday, July 21, 2016 10:01 - CONCLUSION: 1. Blunting of both costophrenic angles, right greater than left suggesting some degree of effusion. 2. In addition, there is some focal increased interstitial markings in the right lower lung field suggesting some asymmetric vascular congestion or volume overload. No confluent infiltrate. 3. Dextroscoliosis of the thoracolumbar spine with associated degenerative changes Nikos Kaur MD CT Angiography 07/21/16 0000 Signed Impressions: Service Date/Time: Thursday, July 21, 2016 11:06 - CONCLUSION: 1. No evidence of pulmonary embolism. 2. Bilateral effusions and left basilar atelectasis Amos Toledo MD Physical Exam GENERAL: This is a well-nourished, well-developed patient, in no apparent distress. SKIN: No rashes, ecchymoses or lesions. Cool and dry. HEAD: Atraumatic. Normocephalic. No temporal or scalp tenderness. EYES: Pupils equal round and reactive. Extraocular motions intact. No scleral icterus. No injection or drainage. ENT: Nose without bleeding, purulent drainage or septal hematoma. Throat without erythema, tonsillar hypertrophy or exudate. Uvula midline. Airway patent. NECK: Trachea midline. Supple, nontender, no meningeal signs. CARDIOVASCULAR: HS audible. RESPIRATORY: Clear to auscultation. Breath sounds equal bilaterally. GASTROINTESTINAL: Abdomen soft, non-tender, nondistended. MUSCULOSKELETAL: Bilateral forearm sites improving. NEUROLOGICAL: Awake and alert. Grossly nonfocal. Psych: cooperative IV line sites with no e/o infection. Assessment & Plan Remarks Coag neg staph bacteremia in pt with IVDA and prior Spine Osteomyelitis. MSSA in urine: ? translocation in urine from Staph bacteremia. Possible Endocarditis and or Spinal hardware infection. Prior MSSA hardware infection s/p removal. Bilateral forearm abscess (left at wrist level, right in mid forearm) IVDA ongoing. Abnormal Liver function tests: ? sepsis vs hepatitis related. Recs Continue Dapto IV (tentative stop date: 09/03/2016) Follow CBC with diff, CMP (need LFTs while on Dapto) and Serum CK levels. Follow clinically Follow urine output and Cr. D.w Dr.Hoskote escamilla to transfer to [facility]. Please call ID in last week of treatment. Recommend repeat MRI at that point to see status of fluid collections to see if he needs assisted suppressive antibiotics. Will sign off please call ID examination grader at [facility] if any change in clinical condition or questions. Alina Davis MD Aug 04, 2016 13:41
[2016-08-05] VITALS (7 sets, daily range): BP systolic 113–143; BP diastolic 65–100; PULSE 75–93; RESP 18–20; TEMP 96–98.4; O2SAT 93–97
[2016-08-05] MEDS: SODIUM CHLORIDE 0.9% FLUSH 5 ML FLUSH FLUSH SCH ×3 (03:02→21:53)
[2016-08-05] MEDS: INSULIN ASPART SUPPLEMENTAL SCALE SQ SCH ×4 (06:28→21:00)
[2016-08-05 06:54] LABS: HEMATOCRIT 44.4 % (39.0-51.0); MEAN CELL VOLUME 86.7 FL (80.0-100.0); MEAN CORPUSCULAR HEMOGLOBIN 28.5 PG (27.0-34.0); MEAN CORPUSCULAR HGB CONC 32.9 % (32.0-36.0); PLATELET COUNT 304 TH/MM3 (150-450); RED BLOOD COUNT 5.12 MIL/MM3 (4.50-5.90); RED CELL DISTRIBUTION WIDTH 15.3 % (11.6-17.2); REVIEW FLAG FINAL; WHITE BLOOD COUNT 5.8 TH/MM3 (4.0-11.0)
[2016-08-05 07:10] LABS: ALT (GPT) 56 U/L (12-78); ANION GAP 7 MEQ/L (5-15); AST (GOT) 31 U/L (15-37); BICARBONATE 24.9 MEQ/L (21.0-32.0); BLOOD UREA NITROGEN 24 MG/DL (7-18); CHLORIDE 106 MEQ/L (98-107); GLOMERULAR FILTRATION RATE 59 ML/MIN (>89); POTASSIUM 4.3 MEQ/L (3.5-5.1); SODIUM (NA) 138 MEQ/L (136-145)
[2016-08-05 07:12] LABS: ALKALINE PHOSPHATASE 166 U/L (45-117); TOTAL BILIRUBIN ADULT 0.8 MG/DL (0.2-1.0)
[2016-08-05] MEDS: CARVEDILOL 3.125 MG TAB PO SCH ×2 (08:58→21:52)
[2016-08-05] MEDS: SERTRALINE HCL 50 MG TAB PO SCH (08:58)
[2016-08-05] MEDS: RESP: ALBUTEROL 2.5 MG/3 ML NEB (PRN) INH ×2 (09:08→19:31)
--- NOTE | 2016-08-05 10:20 | HHI.FPPN ---
Subjective Remarks Pt seen and examined this morning. No acute events overnight. Pt endorses feeling more SOB this morning, worsened by activity. Pulse ox 93-97. Blood pressures slightly elevated: 120s-140s/70s-100s. He denies chest pain, abdominal pain, headaches, vision changes, dizziness. (Jean Marie Shaffer MD R2) Objective Vitals Vital Signs Date Time Temp Pulse Resp B/P Pulse Ox O2 Delivery O2 Flow Rate FiO2 08/05/16 08:00 97.0 85 18 143/100 97 08/05/16 04:00 96.0 77 20 125/73 93 08/05/16 00:00 97.9 83 20 136/97 93 08/04/16 20:00 97.2 82 20 133/78 94 08/04/16 16:00 97.2 93 12 134/93 98 08/04/16 12:00 95.9 89 12 142/91 95 I/O 08/04/16 08/04/16 08/04/16 08/05/16 08/05/16 08/05/16 07:00 15:00 23:00 07:00 15:00 23:00 Intake Total 360 ml 360 ml 120 ml Balance 360 ml 360 ml 120 ml Intake Oral 360 ml 360 ml 120 ml # Voids 10 0 3 # Bowel Movements 1 0 0 (Jean Marie Shaffer MD R2) Result Diagram: 08/05/1662408/05/16 0625 Objective Remarks GEN: Thin male in no acute distress. Sitting comfortably in bed. CV: Regular rate and rhythm without obvious murmurs. LUNGS: Decreased air movement bilaterally, appears to have poor effort. Crackles at lung bases bilaterally. Normal work of breathing. EXT: No edema. No calf tenderness. NEURO/PSYCH: Awake, alert. Appropriate insight and judgment. Normal speech. ( Jean Marie Shaffer MD R2) A/P Discharge Planning Pending ID recommendations and improvement in renal function. [facility] has declined patient due to his drug use and [facility] has also declined patient due to expense of medications. CM assisting with discharge plans. allyw Dr. Damico wdw Dr. Santiago (Jean Marie Shaffer MD R2) Attending Attestation Pt. examined and case discussed with resident physicians I have read the above note and agree with the assessment/plan as discussed with me I was involved in all medical decision making for this patient Robert Santiago MD (Robert Santiago MD) Problem List: (1) SOB (shortness of breath) Status: Acute Plan: Pt endorses increased shortness of breathing since last night. O2 saturations 93-97, AFVSS. Likely due to CHF, pt with EF of 15-20%. No lower extremity edema. -CXR due to concern for worsening pulmonary congestion vs volume overload -Continue to monitor Oxygen saturation and vitals -We'll consider dose of IV Lasix as well as resuming Lasix which are on hold due to MILLER. (2) Bacteremia Status: Acute Plan: Concern for endocarditis due to presence of Staph Aureus in urine. Will need treatment x6 wks due to history of osteomyelitis and IVD use. Suspect cultures have been negative due to collection prior to the start of antibiotics. Echo negative for vegetations. -blood cultures and paraspinal fluid collection cultures with no growth to date * 1 blood culture positive on 07/21 significant for coagulase negative staph, possible contaminant -urine culture: Staph Aureus, sensitive to Daptomycin -I&D of left wrist abscess wound culture: MRSA -Fungal culture no growth after 1 week Imaging: * MRI of lumbar spine: elongated fluid collections in the posterior paraspinal soft tissues on the right and left without MRI features convincing for abscess. These are presumably seroma or hematomas. Also no evidence of osteomyelitis. * CT abdomen: No abscesses seen ID consulted: appreciate recommendations * Continue Daptomycin (started 07/31). Monitor LFTs and CK, urine output. Anticipated end date 09/03/16. * No PICC till cleared by ID * Consulted GI and nephrology * Stopped Vancomycin (07/22-07/30), Rocephin (07/21-07/31) and Linezolid (07/31) due to renal function. (3) MILLER (acute kidney injury) Status: Acute Plan: Found to have an acute increase in Cr from a baseline around 1.0. Etiology due to aggressive diuresis, vancomycin toxicity versus NSAIDs. Nephrology consulted: appreciate recommendations. * Renal US unremarkable: no evidence for hydronephrosis. Posterior bladder wall thickening or dependent debris. * Concern for acute interstitial nephritis but urine eosinophils were negative -Cr improving, 1.21 today -Fluids discontinued -Vancomycin discontinued, now receiving Daptomycin -Continue to monitor renal function -Repeat UA negative -Avoid nephrotoxic medications (4) CHF (congestive heart failure) Status: Chronic Plan: Initially presented for chest pain and shortness of breath. Echo from 2015 showed an EF of 55-60%. BNP on admission was significantly elevated. Suspect CHF contributing to symptoms of chronic malaise -ACS evaluation negative -Repeat echo with an EF of 15-20% Cardiology consulted: Appreciate recommendations * Nuclear stress test showing ventriculomegaly with large fixed perfusion abnormality and no evidence of stress-induced reversible abnormalities. Severe global hypokinesia with 14% ejection fraction. * Probably non-ischemic etiology * OK to dc from a cardiac standpoint Imaging: * CXR: Blunting of both costophrenic angles with some degree of effusion. Some focal increased interstitial markings the right lower lung suggesting some asymmetric basilar congestion or volume overload. No confluent infiltrate. * CTA: No evidence of PE. Bilateral effusions left basilar atelectasis. Medications: *Medications on hold until renal function improves * HOLD Lasix 20 mg po daily * HOLD KCL 10meq po daily * HOLD Aspirin 81mg daily * HOLD Lisinopril 5 mg po daily * Continue Coreg 3.125 mg po q12h * Will consider restarting as renal function has almost returned to baseline (5) Elevated liver enzymes Status: Acute Plan: Resolved Previously with elevated liver enzymes along with an elevated INR. -LFTs within normal limits this AM -GI consulted: appreciate recommendations -AFP normal -IAN, [id number], ceruloplasmin, anti-smooth muscle Ab pending -Monitor LFTs -Liver US: heterogeneous and mildly lobular suggestive of hepatocellular disease such as cirrhosis. Trace fluid adjacent to liver. -Hepatitis panel and HIV negative -Avoid hepatotoxic medications (6) UTI (urinary tract infection) Status: Acute Plan: Plan as above under bacteremia (7) DM (diabetes mellitus) Status: Chronic Plan: -Continue accuchecks ACHS, low dose sliding scale -Patient requiring 10 units of SSI in the past 24 hours -Home Metformin held, Anticipate discharging on medication if renal function is adequate. -Will add basal insulin if needed (8) Polysubstance abuse Status: Chronic Plan: Patient admits to marijuana, Dilaudid, cocaine, methamphetamine drug use. UDS positive for cocaine and methamphetamine (9) Nutrition, metabolism, and development symptoms Status: Acute Plan: Nutrition: Diabetic diet Fluids: None, pt tolerating PO Electrolytes: unremarkable, continue to monitor DVT prophylaxis: Lovenox GI prophylaxis: Not indicated Anxiety: Xanax 0.25mg PRN, Zoloft 50 mg po daily, sertraline 50 mg po daily (Jean Marie Shaffer MD R2) Problem Qualifiers (1) CHF (congestive heart failure): Qualified Code: I50.21 - Acute systolic congestive heart failure (2) DM (diabetes mellitus): Qualified Code: E11.9 - Type 2 diabetes mellitus without complication, without long-term current use of insulin Jean Marie Shaffer MD R2 Aug 05, 2016 10:20 Robert Santiago MD Aug 05, 2016 15:01
--- NOTE | 2016-08-05 11:05 | RADRPT ---
EXAM DATE/TIME: 08/05/2016 10:47 [facility] COMPARISON: Prior study 07/21/2016. INDICATIONS : Shortness of breath. MEDICAL HISTORY : Hypercholesterolemia. Myocardial infarction. Hypertension. CVA. Endocard itis. CAD. Dyspnea. Diabetes. Collapsed lung. SURGICAL HISTORY : None. ENCOUNTER: Subsequent ACUITY: 1 week PAIN SCORE: 0/10 LOCATION: Bilateral chest FINDINGS: A single view of the chest demonstrates there is persistent cardiomegaly and perihilar vascular conge stion. It is slightly worse than on the previous study. There is a moderate-sized right pleural eff usion, larger than on the previous study. CONCLUSION: Pulmonary hilar vascular congestion with increased pleural effusion on the right. Anthony Gillespie MD on August 05, 2016 at 10:58 Board Certified Radiologist. This report was verified electronically.
[2016-08-05] MEDS: DAPTOMYCIN IV SCH (11:43)
[2016-08-05] MEDS: ENOXAPARIN SODIUM 40 MG/0.4 ML SYRINGE SQ SCH (11:43)
[2016-08-05] MEDS: SODIUM CHLORIDE 0.9% IV SCH (11:43)
[2016-08-05] MEDS ORDERED: FUROSEMIDE 20 MG/2 ML VIAL IV PUSH ONE (12:45)
[2016-08-05] MEDS: SODIUM CHLORIDE 0.9% FLUSH 5 ML FLUSH FLUSH PRN (13:49)
--- NOTE | 2016-08-05 15:18 | HHI.GIFU ---
Subjective Remarks Resting in bed. Tolerating diet. Mild epigastric discomfort. (AnamKathy Presley PACHECO) Objective Vitals I&O Vital Signs Date Time Temp Pulse Resp B/P Pulse Ox O2 Delivery O2 Flow Rate FiO2 08/05/16 12:00 96.0 93 18 133/86 97 08/05/16 08:00 97.0 85 18 143/100 97 08/05/16 04:00 96.0 77 20 125/73 93 08/05/16 00:00 97.9 83 20 136/97 93 08/04/16 20:00 97.2 82 20 133/78 94 08/04/16 16:00 97.2 93 12 134/93 98 I/O 08/04/16 08/04/16 08/04/16 08/05/16 08/05/16 08/05/16 07:00 15:00 23:00 07:00 15:00 23:00 Intake Total 360 ml 360 ml 120 ml Balance 360 ml 360 ml 120 ml Intake Oral 360 ml 360 ml 120 ml # Voids 10 0 3 # Bowel Movements 1 0 0 Laboratory Laboratory Tests Test 08/05/16 06:25 White Blood Count 5.8 Red Blood Count 5.12 Hemoglobin 14.6 Hematocrit 44.4 Mean Corpuscular Volume 86.7 Mean Corpuscular Hemoglobin 28.5 Mean Corpuscular Hemoglobin 32.9 Concent Red Cell Distribution Width 15.3 Platelet Count 304 Mean Platelet Volume 8.4 Sodium Level 138 Potassium Level 4.3 Chloride Level 106 Carbon Dioxide Level 24.9 Anion Gap 7 Blood Urea Nitrogen 24 Creatinine 1.21 Estimat Glomerular Filtration 59 Rate Random Glucose 111 Calcium Level 9.2 Total Bilirubin 0.8 Aspartate Amino Transf 31 (AST/SGOT) Alanine Aminotransferase 56 (ALT/SGPT) Alkaline Phosphatase 166 Total Protein 6.3 Albumin 2.6 Imaging Last Impressions Chest X-Ray 08/05/16 0000 Signed Impressions: Service Date/Time: Friday, August 05, 2016 10:47 - CONCLUSION: Pulmonary hilar vascular congestion with increased pleural effusion on the right. Anthony Gillespie MD Liver Ultrasound 08/02/16 0000 Signed Impressions: Service Date/Time: Tuesday, August 02, 2016 08:13 - CONCLUSION: 1. The liver is heterogeneous and mildly lobular suggestive of hepatocellular disease such as cirrhosis. 2. There is a trace of fluid adjacent to the liver.. 3. The pancreas was not visualized. Robert Johnson MD Renal Ultrasound 07/31/16 1517 Signed Impressions: Service Date/Time: July 20:19 - CONCLUSION: No evidence of hydronephrosis. Posterior bladder wall thickening or dependent debris. Ascites. Kwesi Coleman MD Abscess Drainage X-Ray 07/26/16 0000 Signed Impressions: Service Date/Time: Tuesday, July 26, 2016 16:35 - CONCLUSION: Uncomplicated aspiration of complex fluid collections in the lower back bilaterally as detailed above. Nikos Kaur MD Soft Tissue Ultrasound 07/25/16 1834 Signed Impressions: Service Date/Time: Monday, July 25, 2016 23:13 - CONCLUSION: In the parasagittal lower back, deep to the subcutaneous tissues, there are bilateral mixed cystic and solid lesion which measure up to 6 cm in size. Kalyan Hayes MD Myocardial Perfusion Scan Nuc Med 07/25/16 0000 Signed Impressions: Service Date/Time: Monday, July 25, 2016 10:43 - CONCLUSION: Ventriculomegaly with large fixed perfusion abnormality and no evidence of stress-induced reversible abnormalities. Severe global hypokinesia with 14%% ejection fraction. RISK CATEGORY: High (>3%% Annual Mortality Rate) Brown Tejeda MD Lumbar Spine MRI 07/24/16 0000 Signed Impressions: Service Date/Time: July 18:25 - CONCLUSION: 1. Previous surgery at L4/L5 and L5/S1 with subsequent hardware removal. There are elongated fluid collections in the posterior paraspinous soft tissues on the right and left without MRI features convincing for abscess. These are presumably seromas or old hematomas. Also no evidence of osteomyelitis.. 2. Normal thecal sac and epidural space. 3. No foraminal or spinal stenosis at any level. 4. Mild bilateral facet osteoarthritis and nonspecific synovitis at L3/L4. Kwesi Hinojosa MD Abdomen/Pelvis CT 07/23/16 0000 Signed Impressions: Service Date/Time: Saturday, July 23, 2016 17:42 - CONCLUSION: 1. Diverticulosis without diverticulitis. 2. Minimal ascites. 3. Dilated stomach. 4. A few punctate of second bilateral renal calculi. 5. Small bilateral pleural effusions. 6. No abscess seen. James Wyatt MD CT Angiography 07/21/16 0000 Signed Impressions: Service Date/Time: Thursday, July 21, 2016 11:06 - CONCLUSION: 1. No evidence of pulmonary embolism. 2. Bilateral effusions and left basilar atelectasis Amos Toledo MD Physical Exam HEENT: Normocephalic; atraumatic; no jaundice. CHEST: Chest is clear to auscultation and percussion. CARDIAC: RRR ABDOMEN: Soft, nondistended, mild epigastric tenderness; no hepatosplenomegaly ; bowel sounds are present in all four quadrants. EXTREMITIES: No clubbing, cyanosis, or edema. SKIN: Normal; no rash; no jaundice. DENTAL BILLING SPECIALIST: No focal deficits; alert and oriented times three. (Kathy Mendieta) Assessment and Plan Plan ASSESSMENT: - Elevated LFTs. Pt with hx of IVDA, admitted for bacteremia/possible endocarditis. GI consulted for elevated LFTs. On admission, he had elevated LFTs with T. Bili 0.9, AST 203, ALT 136, ALk Phosph 192. These have been trending down. Abdomen/Pelvis CT (07/23/16)-----> 1. Diverticulosis without diverticulitis. 2. Minimal ascites. 3. Dilated stomach. 4. A few punctate of second bilateral renal calculi. 5. Small bilateral pleural effusions. 6. No abscess seen. He denies any known history of liver disease in himself or other family members. Liver Ultrasound (08/02/16)--> 1. The liver is heterogeneous and mildly lobular suggestive of hepatocellular disease such as cirrhosis. 2. There is a trace of fluid adjacent to the liver. 3. The pancreas was not visualized. He denies any hx of cirrhosis, although he now admits to drinking heavily x 30-40 years. No GI symptoms. He has been on ceftriaxone, Bactrim DS, Vancomycin, Zyvox. He is currently on Daptomycin per ID recommendations. Of note he does have a hx of antiphospholipid antibody syndrome, but went off his coumadin 6-7 years ago. Hepatitis profile negative. AFP 1.6, Ferritin 47, Iron Saturation 63, Ceruloplasmin pending, Alpha 1 Antitrypsin 195, IAN negative, ASMA negative, AMA pending. Probable underlying liver cirrhosis related to ETOH abuse, aggravated by IVDA, infection, and antibiotic use. LFTs cont. to improve- T. Bili 0.8, AST 31, ALT 56, Alk Phosph 166. - Bacteremia with Staph Sp Coagulase Negative. Imaging revealed paraspinal soft tissue fluid collection and he was evaluated by NSx, who feels this is old seroma as there is no enhancement and the radiologist concurs with this impression. He was evaluated by neurosurgery and they have signed off. - MSSA in urine, bilateral forearm abscess. Abx per ID - IVDA, ongoing, last 3 weeks ago with methamphetamines and crack PLAN: - SHI - Await AMA, Ceruloplasmin - Monitor LFTs - Avoid hepatotoxic meds - Okay to transfer to [place] PO from GI standpoint - Further recommendations to follow based on results of above - Pt seen and examined by Dr. Roy and myself and this note is written on his behalf (Kathy Mendieta) Physician Comments Patient seen and examined Agree with above Continue with current supportive care Monitor labs (Sheng Roy MD) Kathy Mendieta Aug 05, 2016 15:18 Sheng Roy MD Aug 05, 2016 22:48
[2016-08-06 00:01] VITALS: BP 117/77; PULSE 79; RESP 16; TEMP 98.9; O2SAT 96
[2016-08-06 04:00] VITALS: BP 125/69; PULSE 75; RESP 15; TEMP 98.6; O2SAT 97
[2016-08-06] MEDS: INSULIN ASPART SUPPLEMENTAL SCALE SQ SCH ×4 (06:04→22:38)
[2016-08-06 08:09] LABS: HEMATOCRIT 46.8 % (39.0-51.0); MEAN CELL VOLUME 87.4 FL (80.0-100.0); PLATELET COUNT 277 TH/MM3 (150-450); RED BLOOD COUNT 5.36 MIL/MM3 (4.50-5.90); RED CELL DISTRIBUTION WIDTH 15.3 % (11.6-17.2); REVIEW FLAG FINAL; WHITE BLOOD COUNT 7.2 TH/MM3 (4.0-11.0)
[2016-08-06] MEDS: LISINOPRIL 5 MG TAB PO SCH (08:21)
[2016-08-06] MEDS: CARVEDILOL 3.125 MG TAB PO SCH ×2 (08:21→22:37)
[2016-08-06] MEDS: SERTRALINE HCL 50 MG TAB PO SCH (08:21)
[2016-08-06] MEDS: POTASSIUM CHLORIDE 10 MEQ CONTROLLED RELEASE TAB PO SCH (08:21)
[2016-08-06] MEDS: FUROSEMIDE 20 MG TAB PO SCH (08:27)
[2016-08-06] MEDS: SODIUM CHLORIDE 0.9% FLUSH 5 ML FLUSH FLUSH SCH ×2 (08:30→22:38)
[2016-08-06 08:38] LABS: BICARBONATE 25.5 MEQ/L (21.0-32.0); POTASSIUM 4.6 MEQ/L (3.5-5.1)
[2016-08-06] MEDS: ASPIRIN EC 81 MG TABEC PO SCH (09:00)
--- NOTE | 2016-08-06 10:09 | HHI.FPPN ---
Subjective Remarks Pt seen and examined this morning. No acute events overnight. AFVSS. Pt reports that breathing has significantly improved in comparison to yesterday. He denies headaches, vision changes, chest pain, abdominal pain, calf pain. Pt is concerned that he is not eating enough and finds he is always hungry. Objective Vitals Vital Signs Date Time Temp Pulse Resp B/P Pulse Ox O2 Delivery O2 Flow Rate FiO2 08/06/16 04:00 98.6 75 15 125/69 97 08/06/16 00:01 98.9 79 16 117/77 96 08/05/16 20:00 98.4 75 18 130/92 95 08/05/16 18:15 97 21 08/05/16 16:00 97.5 77 18 113/65 97 08/05/16 12:00 96.0 93 18 133/86 97 I/O 08/05/16 08/05/16 08/05/16 08/06/16 08/06/16 08/06/16 07:00 15:00 23:00 07:00 15:00 23:00 Intake Total 120 ml 480 ml 440 ml 100 ml Output Total 600 ml 300 ml Balance 120 ml -120 ml 140 ml 100 ml Intake Oral 120 ml 480 ml 440 ml 100 ml Output Urine Total 600 ml 300 ml # Voids 3 2 # Bowel Movements 0 1 Result Diagram: [id number]/06/1672608/06/16726 Objective Remarks GEN: Thin male in no acute distress. Sitting comfortably in bed. CV: Regular rate and rhythm without obvious murmurs. LUNGS: Decreased air movement bilaterally, appears to have poor effort. Crackles at lung bases bilaterally. Normal work of breathing. EXT: No edema. No calf tenderness. NEURO/PSYCH: Awake, alert. Appropriate insight and judgment. Normal speech. A/P Discharge Planning Pending ID recommendations and improvement in renal function. Ann has declined patient due to his drug use and Erwinna has also declined patient due to expense of medications. CM assisting with discharge plans. allyw Dr. Damico wdw Dr. Santiago Problem List: (1) SOB (shortness of breath) Status: Acute Plan: Resolved Patient reports that breathing has significantly improved, AFVSS. Likely due to CHF, pt with EF of 15-20%. No lower extremity edema. -CXR on 1/31/17: Pulmonary hilar vascular congestion and increased pleural effusion on the right. -Lasix 20 mg IV 1 -Resume Lasix 20 mg po daily and KCl -Continue to monitor Oxygen saturation and vitals (2) Bacteremia Status: Acute Plan: Concern for endocarditis due to presence of Staph Aureus in urine. Will need treatment x6 wks due to history of osteomyelitis and IVD use. Suspect cultures have been negative due to collection prior to the start of antibiotics. Echo negative for vegetations. -blood cultures and paraspinal fluid collection cultures with no growth to date * 1 blood culture positive on 07/21 significant for coagulase negative staph, possible contaminant -urine culture: Staph Aureus, sensitive to Daptomycin -I&D of left wrist abscess wound culture: MRSA -Fungal culture no growth after 1 week Imaging: * MRI of lumbar spine: elongated fluid collections in the posterior paraspinal soft tissues on the right and left without MRI features convincing for abscess. These are presumably seroma or hematomas. Also no evidence of osteomyelitis. * CT abdomen: No abscesses seen ID consulted: appreciate recommendations * Continue Daptomycin (started 07/31). Monitor LFTs and CK, urine output. Anticipated end date 09/03/16. * No PICC till cleared by ID * Consulted GI and nephrology * Stopped Vancomycin (07/22-07/30), Rocephin (07/21-07/31) and Linezolid (07/31) due to renal function. (3) MILLER (acute kidney injury) Status: Acute Plan: Found to have an acute increase in Cr from a baseline around 1.0. Etiology due to aggressive diuresis, vancomycin toxicity versus NSAIDs. Nephrology consulted: appreciate recommendations. * Renal US unremarkable: no evidence for hydronephrosis. Posterior bladder wall thickening or dependent debris. * Concern for acute interstitial nephritis but urine eosinophils were negative -Cr 1.30 today -Fluids discontinued -Vancomycin discontinued, now receiving Daptomycin -Continue to monitor renal function -Repeat UA negative -Avoid highly nephrotoxic medications (4) CHF (congestive heart failure) Status: Chronic Plan: Initially presented for chest pain and shortness of breath. Echo from 2015 showed an EF of 55-60%. BNP on admission was significantly elevated. Suspect CHF contributing to symptoms of chronic malaise -ACS evaluation negative -Repeat echo with an EF of 15-20% Cardiology consulted: Appreciate recommendations * Nuclear stress test showing ventriculomegaly with large fixed perfusion abnormality and no evidence of stress-induced reversible abnormalities. Severe global hypokinesia with 14% ejection fraction. * Probably non-ischemic etiology * OK to dc from a cardiac standpoint Imaging: * CXR 08/05/16: Pulmonary hilar vascular congestion and increased pleural effusion on the right. * CXR 07/21/16: Blunting of both costophrenic angles with some degree of effusion. Some focal increased interstitial markings the right lower lung suggesting some asymmetric basilar congestion or volume overload. No confluent infiltrate. * CTA 07/21/16: No evidence of PE. Bilateral effusions left basilar atelectasis. Medications: * Lasix 20 mg po daily resumed * KCL 10meq po daily resumed * Aspirin 81mg daily resumed * Lisinopril 5 mg po daily resumed * Continue Coreg 3.125 mg po q12h (5) Elevated liver enzymes Status: Acute Plan: Resolved Previously with elevated liver enzymes along with an elevated INR. -LFTs within normal limits on 08/05 -GI consulted: appreciate recommendations -AFP normal -IAN negative -Mitochondrial M2 antibody pending -[id number] slightly elevated at 195, -ceruloplasmin pending -Anti-smooth muscle Ab negative -Monitor LFTs -Liver US: heterogeneous and mildly lobular suggestive of hepatocellular disease such as cirrhosis. Trace fluid adjacent to liver. -Hepatitis panel and HIV negative -Avoid hepatotoxic medications (6) UTI (urinary tract infection) Status: Acute Plan: Plan as above under bacteremia (7) DM (diabetes mellitus) Status: Chronic Plan: -Continue accuchecks ACHS, low dose sliding scale -Patient requiring 6 units of SSI in the past 24 hours -Home Metformin held, Anticipate discharging on medication if renal function is adequate. -Will add basal insulin if needed (8) Polysubstance abuse Status: Chronic Plan: Patient admits to marijuana, Dilaudid, cocaine, methamphetamine drug use. UDS positive for cocaine and methamphetamine (9) Nutrition, metabolism, and development symptoms Status: Acute Plan: Nutrition: Diabetic diet increased to 2200 kcal Fluids: None, pt tolerating PO Electrolytes: unremarkable, continue to monitor DVT prophylaxis: Lovenox GI prophylaxis: Not indicated Anxiety: Xanax 0.25mg PRN, Zoloft 50 mg po daily, sertraline 50 mg po daily Problem Qualifiers (1) CHF (congestive heart failure): Qualified Code: I50.21 - Acute systolic congestive heart failure (2) DM (diabetes mellitus): Qualified Code: E11.9 - Type 2 diabetes mellitus without complication, without long-term current use of insulin Jean Marie Shaffer MD R2 Aug 06, 2016 10:09
[2016-08-06 12:00] VITALS: BP 112/71; PULSE 74; RESP 20; TEMP 97.1; O2SAT 92
[2016-08-06] MEDS: ENOXAPARIN SODIUM 40 MG/0.4 ML SYRINGE SQ SCH (12:36)
[2016-08-06] MEDS: SODIUM CHLORIDE 0.9% IV SCH (12:36)
[2016-08-06] MEDS: DAPTOMYCIN IV SCH (12:36)
[2016-08-06 16:00] VITALS: BP 120/81; PULSE 65; RESP 20; TEMP 97.2; O2SAT 92
[2016-08-06 20:00] VITALS: BP 110/62; PULSE 64; RESP 18; TEMP 97.4; O2SAT 99
[2016-08-07] VITALS: BP 103/65; PULSE 68; RESP 16; TEMP 97.4; O2SAT 97
[2016-08-07 04:00] VITALS: BP 111/74; PULSE 75; RESP 18; TEMP 97.3; O2SAT 98
[2016-08-07] MEDS: INSULIN ASPART SUPPLEMENTAL SCALE SQ SCH ×4 (06:48→21:37)
[2016-08-07 07:12] LABS: BICARBONATE 26.5 MEQ/L (21.0-32.0); POTASSIUM 4.4 MEQ/L (3.5-5.1)
[2016-08-07 08:00] VITALS: BP 102/58; PULSE 71; RESP 20; TEMP 98.2; O2SAT 91
[2016-08-07] MEDS: ASPIRIN EC 81 MG TABEC PO SCH (10:11)
[2016-08-07] MEDS: LISINOPRIL 5 MG TAB PO SCH (10:11)
[2016-08-07] MEDS: SERTRALINE HCL 50 MG TAB PO SCH (10:11)
[2016-08-07] MEDS: FUROSEMIDE 20 MG TAB PO SCH (10:12)
[2016-08-07] MEDS: POTASSIUM CHLORIDE 10 MEQ CONTROLLED RELEASE TAB PO SCH (10:12)
[2016-08-07] MEDS: CARVEDILOL 3.125 MG TAB PO SCH ×2 (10:12→21:36)
[2016-08-07] MEDS: SODIUM CHLORIDE 0.9% FLUSH 5 ML FLUSH FLUSH SCH ×2 (10:14→21:36)
--- NOTE | 2016-08-07 10:55 | HHI.GIFU ---
Subjective Remarks Resting in bed. States he is feeling much better. No n/v. No abdominal pain. (MendietaKathy Presley PACHECO) Objective Vitals I&O Vital Signs Date Time Temp Pulse Resp B/P Pulse Ox O2 Delivery O2 Flow Rate FiO2 08/07/16 08:00 98.2 71 20 102/58 91 08/07/16 04:00 97.3 75 18 111/74 98 08/07/16 04:00 Room Air 08/07/16 00:00 97.4 68 16 103/65 97 08/07/16 00:00 Room Air 08/06/16 20:00 Room Air 08/06/16 20:00 97.4 64 18 110/62 99 08/06/16 16:00 97.2 65 20 120/81 92 08/06/16 12:00 97.1 74 20 112/71 92 I/O 08/06/16 08/06/16 08/06/16 08/07/16 08/07/16 08/07/16 07:00 15:00 23:00 07:00 15:00 23:00 Intake Total 100 ml 470 ml 480 ml Balance 100 ml 470 ml 480 ml Intake Oral 100 ml 360 ml 480 ml IV Total 110 ml # Voids 2 4 3 # Bowel Movements 1 0 Laboratory Laboratory Tests Test 08/07/16 05:48 Sodium Level 137 Potassium Level 4.4 Chloride Level 102 Carbon Dioxide Level 26.5 Anion Gap 9 Blood Urea Nitrogen 27 Creatinine 1.32 Estimat Glomerular Filtration 54 Rate Random Glucose 114 Calcium Level 8.8 Phosphorus Level 3.8 Albumin 2.5 Imaging Last Impressions Chest X-Ray 08/05/16 0000 Signed Impressions: Service Date/Time: Friday, August 05, 2016 10:47 - CONCLUSION: Pulmonary hilar vascular congestion with increased pleural effusion on the right. Anthony Gillespie MD Liver Ultrasound 08/02/16 0000 Signed Impressions: Service Date/Time: Tuesday, August 02, 2016 08:13 - CONCLUSION: 1. The liver is heterogeneous and mildly lobular suggestive of hepatocellular disease such as cirrhosis. 2. There is a trace of fluid adjacent to the liver.. 3. The pancreas was not visualized. Robert Johnson MD Renal Ultrasound 07/31/16 1517 Signed Impressions: Service Date/Time: July 20:19 - CONCLUSION: No evidence of hydronephrosis. Posterior bladder wall thickening or dependent debris. Ascites. Kwesi Coleman MD Abscess Drainage X-Ray 07/26/16 0000 Signed Impressions: Service Date/Time: Tuesday, July 26, 2016 16:35 - CONCLUSION: Uncomplicated aspiration of complex fluid collections in the lower back bilaterally as detailed above. Nikos Kaur MD Soft Tissue Ultrasound 07/25/16 1834 Signed Impressions: Service Date/Time: Monday, July 25, 2016 23:13 - CONCLUSION: In the parasagittal lower back, deep to the subcutaneous tissues, there are bilateral mixed cystic and solid lesion which measure up to 6 cm in size. Kalyan Hayes MD Myocardial Perfusion Scan Nuc Med 07/25/16 0000 Signed Impressions: Service Date/Time: Monday, July 25, 2016 10:43 - CONCLUSION: Ventriculomegaly with large fixed perfusion abnormality and no evidence of stress-induced reversible abnormalities. Severe global hypokinesia with 14%% ejection fraction. RISK CATEGORY: High (>3%% Annual Mortality Rate) Brown Tejeda MD Lumbar Spine MRI 07/24/16 0000 Signed Impressions: Service Date/Time: July 18:25 - CONCLUSION: 1. Previous surgery at L4/L5 and L5/S1 with subsequent hardware removal. There are elongated fluid collections in the posterior paraspinous soft tissues on the right and left without MRI features convincing for abscess. These are presumably seromas or old hematomas. Also no evidence of osteomyelitis.. 2. Normal thecal sac and epidural space. 3. No foraminal or spinal stenosis at any level. 4. Mild bilateral facet osteoarthritis and nonspecific synovitis at L3/L4. Kwesi Hinojosa MD Abdomen/Pelvis CT 07/23/16 0000 Signed Impressions: Service Date/Time: Saturday, July 23, 2016 17:42 - CONCLUSION: 1. Diverticulosis without diverticulitis. 2. Minimal ascites. 3. Dilated stomach. 4. A few punctate of second bilateral renal calculi. 5. Small bilateral pleural effusions. 6. No abscess seen. James Wyatt MD CT Angiography 07/21/16 0000 Signed Impressions: Service Date/Time: Thursday, July 21, 2016 11:06 - CONCLUSION: 1. No evidence of pulmonary embolism. 2. Bilateral effusions and left basilar atelectasis Amos Toledo MD Physical Exam HEENT: Normocephalic; atraumatic; no jaundice. CHEST: Chest is clear to auscultation and percussion. CARDIAC: RRR ABDOMEN: Soft, nondistended, nontender; no hepatosplenomegaly; bowel sounds are present in all four quadrants. EXTREMITIES: No clubbing, cyanosis, or edema. SKIN: Normal; no rash; no jaundice. FLAKE DRIER: No focal deficits; alert and oriented times three. (MendietaKathy) Assessment and Plan Plan ASSESSMENT: - Elevated LFTs. Pt with hx of IVDA, admitted for bacteremia/possible endocarditis. GI consulted for elevated LFTs. On admission, he had elevated LFTs with T. Bili 0.9, AST 203, ALT 136, ALk Phosph 192. These have been trending down. Abdomen/Pelvis CT (07/23/16)-----> 1. Diverticulosis without diverticulitis. 2. Minimal ascites. 3. Dilated stomach. 4. A few punctate of second bilateral renal calculi. 5. Small bilateral pleural effusions. 6. No abscess seen. He denies any known history of liver disease in himself or other family members. Liver Ultrasound (08/02/16)--> 1. The liver is heterogeneous and mildly lobular suggestive of hepatocellular disease such as cirrhosis. 2. There is a trace of fluid adjacent to the liver. 3. The pancreas was not visualized. He denies any hx of cirrhosis, although he now admits to drinking heavily x 30-40 years. No GI symptoms. He has been on ceftriaxone, Bactrim DS, Vancomycin, Zyvox. He is currently on Daptomycin per ID recommendations. Of note he does have a hx of antiphospholipid antibody syndrome, but went off his coumadin 6-7 years ago. Hepatitis profile negative. AFP 1.6, Ferritin 47, Iron Saturation 63, Ceruloplasmin 48, Alpha 1 Antitrypsin 195, IAN negative, ASMA negative, AMA pending. Probable underlying liver cirrhosis related to ETOH abuse, aggravated by IVDA, infection, and antibiotic use. LFTs cont. to improve. - Bacteremia with Staph Sp Coagulase Negative. Imaging revealed paraspinal soft tissue fluid collection and he was evaluated by NSx, who feels this is old seroma as there is no enhancement and the radiologist concurs with this impression. He was evaluated by neurosurgery and they have signed off. - MSSA in urine, bilateral forearm abscess. Abx per ID - IVDA, ongoing, last 3 weeks ago with methamphetamines and crack PLAN: - SHI - Await AMA - Monitor LFTs - Avoid hepatotoxic meds - Okay to transfer to [place] PO from GI standpoint - Complete ETOH, Drug Cessation - GI will sign off, please reconsult as needed - Pt seen and examined by Dr. Roy and myself and this note is written on his behalf (Kathy Mendieta) Physician Comments Patient seen and examined Agree with above Continue with current supportive care Monitor labs We will sign off (Sheng Roy MD) Kathy Mendieta Aug 07, 2016 10:55 Sheng Roy MD Aug 07, 2016 21:08
[2016-08-07 12:00] VITALS: BP 97/68; PULSE 80; RESP 20; TEMP 97.2; O2SAT 97
--- NOTE | 2016-08-07 12:00 | HHI.FPPN ---
Subjective Remarks Pt seen and examined this morning. No acute events overnight. Pt reports feeling well. He denies chest pain, shortness of breath, abdominal pain, constipation, diarrhea, calf pain. He finds that he is very hungry despite increase in caloric value of his diet. Objective Vitals Vital Signs Date Time Temp Pulse Resp B/P Pulse Ox O2 Delivery O2 Flow Rate FiO2 08/07/16 08:00 98.2 71 20 102/58 91 08/07/16 04:00 97.3 75 18 111/74 98 08/07/16 04:00 Room Air 08/07/16 00:00 97.4 68 16 103/65 97 08/07/16 00:00 Room Air 08/06/16 20:00 Room Air 08/06/16 20:00 97.4 64 18 110/62 99 08/06/16 16:00 97.2 65 20 120/81 92 08/06/16 12:00 97.1 74 20 112/71 92 I/O 08/06/16 08/06/16 08/06/16 08/07/16 08/07/16 08/07/16 07:00 15:00 23:00 07:00 15:00 23:00 Intake Total 100 ml 470 ml 480 ml Balance 100 ml 470 ml 480 ml Intake Oral 100 ml 360 ml 480 ml IV Total 110 ml # Voids 2 4 3 # Bowel Movements 1 0 Result Diagram: 08/06/16 0727 08/07/16 0548 Objective Remarks GEN: Thin male in no acute distress. Sitting comfortably in bed. CV: Regular rate and rhythm without obvious murmurs. LUNGS: Decreased air movement bilaterally, appears to have poor effort. Decreasing crackles at lung bases bilaterally. Normal work of breathing. EXT: No edema. No calf tenderness. NEURO/PSYCH: Awake, alert. Appropriate insight and judgment. Normal speech. A/P Discharge Planning Pending ID recommendations and improvement in renal function. Ann has declined patient due to his drug use and Luis Alberto has also declined patient due to expense of medications. CM assisting with discharge plans. allyw Dr. Damico wdw Dr. Santiago Problem List: (1) Bacteremia Status: Acute Plan: Concern for endocarditis due to presence of Staph Aureus in urine. Will need treatment x6 wks due to history of osteomyelitis and IVD use. Suspect cultures have been negative due to collection prior to the start of antibiotics. Echo negative for vegetations. -blood cultures and paraspinal fluid collection cultures with no growth to date * 1 blood culture positive on 07/21 significant for coagulase negative staph, possible contaminant -urine culture: Staph Aureus, sensitive to Daptomycin -I&D of left wrist abscess wound culture: MRSA -Fungal culture no growth after 1 week Imaging: * MRI of lumbar spine: elongated fluid collections in the posterior paraspinal soft tissues on the right and left without MRI features convincing for abscess. These are presumably seroma or hematomas. Also no evidence of osteomyelitis. * CT abdomen: No abscesses seen ID consulted: appreciate recommendations * Continue Daptomycin (started 07/31). Monitor LFTs and CK, urine output. Anticipated end date 09/03/16. * No PICC untill cleared by ID * Consulted GI and nephrology * Stopped Vancomycin (07/22-07/30), Rocephin (07/21-07/31) and Linezolid (07/31) due to renal function. (2) MILLER (acute kidney injury) Status: Acute Plan: Found to have an acute increase in Cr from a baseline around 1.0. Etiology due to aggressive diuresis, vancomycin toxicity versus NSAIDs. Nephrology consulted: appreciate recommendations. * Renal US unremarkable: no evidence for hydronephrosis. Posterior bladder wall thickening or dependent debris. * Concern for acute interstitial nephritis but urine eosinophils were negative -Cr 1.32 today -Fluids discontinued -Vancomycin discontinued, now receiving Daptomycin -Continue to monitor renal function -Repeat UA negative -Avoid highly nephrotoxic medications (3) CHF (congestive heart failure) Status: Chronic Plan: Initially presented for chest pain and shortness of breath. Echo from 2015 showed an EF of 55-60%. BNP on admission was significantly elevated. Suspect CHF contributing to symptoms of chronic malaise -ACS evaluation negative -Repeat echo with an EF of 15-20% Cardiology consulted: Appreciate recommendations * Nuclear stress test showing ventriculomegaly with large fixed perfusion abnormality and no evidence of stress-induced reversible abnormalities. Severe global hypokinesia with 14% ejection fraction. * Probably non-ischemic etiology * OK to dc from a cardiac standpoint Imaging: * CXR 08/05/16: Pulmonary hilar vascular congestion and increased pleural effusion on the right. * CXR 07/21/16: Blunting of both costophrenic angles with some degree of effusion. Some focal increased interstitial markings the right lower lung suggesting some asymmetric basilar congestion or volume overload. No confluent infiltrate. * CTA 07/21/16: No evidence of PE. Bilateral effusions left basilar atelectasis. Medications: * Lasix 20 mg po daily * KCL 10meq po daily * Aspirin 81mg daily * Lisinopril 5 mg po daily * Coreg 3.125 mg po q12h (4) Elevated liver enzymes Status: Acute Plan: Resolved Previously with elevated liver enzymes along with an elevated INR. -LFTs within normal limits on 08/05 -GI consulted: appreciate recommendations -AFP normal -IAN negative -Mitochondrial M2 antibody pending -[id number] slightly elevated at 195, -Ceruloplasmin elevated at 48 -Anti-smooth muscle Ab negative -Monitor LFTs -Liver US: heterogeneous and mildly lobular suggestive of hepatocellular disease such as cirrhosis. Trace fluid adjacent to liver. -Hepatitis panel and HIV negative -Avoid hepatotoxic medications (5) UTI (urinary tract infection) Status: Acute Plan: Plan as above under bacteremia (6) DM (diabetes mellitus) Status: Chronic Plan: -Continue accuchecks ACHS, low dose sliding scale -Patient requiring 4 units of SSI in the past 24 hours -Home Metformin held, Anticipate discharging on medication if renal function is adequate. -Will add basal insulin if needed (7) Polysubstance abuse Status: Chronic Plan: Patient admits to marijuana, Dilaudid, cocaine, methamphetamine drug use. UDS positive for cocaine and methamphetamine (8) Nutrition, metabolism, and development symptoms Status: Acute Plan: Nutrition: Diabetic diet increased to 2500 kcal Fluids: None, pt tolerating PO Electrolytes: unremarkable, continue to monitor DVT prophylaxis: Lovenox GI prophylaxis: Not indicated Anxiety: Xanax 0.25mg PRN, Zoloft 50 mg po daily, sertraline 50 mg po daily Problem Qualifiers (1) CHF (congestive heart failure): Qualified Code: I50.21 - Acute systolic congestive heart failure (2) DM (diabetes mellitus): Qualified Code: E11.9 - Type 2 diabetes mellitus without complication, without long-term current use of insulin Jean Marie Shaffer MD R2 Aug 07, 2016 12:00 Anxiety: Xanax 0.25mg PRN, Zoloft 50 mg po daily, sertraline 50 mg po daily Problem Qualifiers (1) CHF (congestive heart failure): Qualified Code: I50.21 - Acute systolic congestive heart failure (2) DM (diabetes mellitus): Qualified Code: E11.9 - Type 2 diabetes mellitus without complication, without long-term current use of insulin Jean Marie Shaffer MD R2 Aug 07, 2016 12:00
[2016-08-07] MEDS: ENOXAPARIN SODIUM 40 MG/0.4 ML SYRINGE SQ SCH (12:29)
[2016-08-07] MEDS: DAPTOMYCIN IV SCH (12:29)
[2016-08-07] MEDS: SODIUM CHLORIDE 0.9% IV SCH (12:29)
[2016-08-07 16:00] VITALS: BP 111/69; PULSE 67; RESP 20; TEMP 97.3; O2SAT 100
[2016-08-07 20:00] VITALS: BP 125/79; PULSE 76; RESP 20; TEMP 97.6; O2SAT 96
[2016-08-08] VITALS: BP 116/74; PULSE 83; RESP 18; TEMP 97.4; O2SAT 94
[2016-08-08 04:00] VITALS: BP 140/85; PULSE 76; RESP 16; TEMP 97.5; O2SAT 96
[2016-08-08] MEDS: INSULIN ASPART SUPPLEMENTAL SCALE SQ SCH ×4 (05:46→21:37)
[2016-08-08 06:49] LABS: HEMATOCRIT 43.9 % (39.0-51.0); MEAN CELL VOLUME 87.8 FL (80.0-100.0); MEAN CORPUSCULAR HEMOGLOBIN 28.4 PG (27.0-34.0); MEAN CORPUSCULAR HGB CONC 32.4 % (32.0-36.0); PLATELET COUNT 275 TH/MM3 (150-450); RED CELL DISTRIBUTION WIDTH 15.5 % (11.6-17.2); REVIEW FLAG FINAL; WHITE BLOOD COUNT 5.8 TH/MM3 (4.0-11.0)
[2016-08-08 07:01] LABS: BICARBONATE 30.9 MEQ/L (21.0-32.0); POTASSIUM 4.1 MEQ/L (3.5-5.1)
[2016-08-08 08:00] VITALS: BP 127/75; PULSE 82; RESP 16; TEMP 97.3; O2SAT 96
--- NOTE | 2016-08-08 09:39 | HHI.FPPN ---
Subjective Remarks Pt seen and examined this morning. No acute events overnight. AFVSS. Pt denies chest pain, abdominal pain, calf pain. He reports occasional SOB which he attributes to anxiety, and this will resolve after he tries to relax. He is accustomed to having complete control of all aspects of his life and unfortunately feels as if he no longer has control. This is causing him to feel more anxious. He would like to speak with case management regarding recourses/ assistance finding a place to live once he is discharged. He also continues to find himself hungry despite increase in color value of his diet. 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 (Jean Marie Shaffer MD R2) Objective Vitals Vital Signs Date Time Temp Pulse Resp B/P Pulse Ox O2 Delivery O2 Flow Rate FiO2 08/08/16 08:00 97.3 82 16 127/75 96 08/08/16 04:00 97.5 76 16 140/85 96 08/08/16 00:00 97.4 83 18 116/74 94 08/07/16 21:30 Room Air 08/07/16 20:00 97.6 76 20 125/79 96 08/07/16 16:00 97.3 67 20 111/69 100 08/07/16 12:00 97.2 80 20 97/68 97 I/O 08/07/16 08/07/16 08/07/16 08/08/16 08/08/16 08/08/16 07:00 15:00 23:00 07:00 15:00 23:00 Intake Total 480 ml 1080 ml 380 ml 0 ml Output Total 300 ml 500 ml 600 ml Balance 480 ml 780 ml -120 ml -600 ml Intake Oral 480 ml 1080 ml 380 ml 0 ml Output Urine Total 300 ml 500 ml 600 ml # Voids 3 4 # Bowel Movements 0 1 0 (Jean Marie Shaffer MD R2) Result Diagram: 08/08/16 0602 08/08/16 06 Objective Remarks GEN: Thin male in no acute distress. Sitting comfortably in bed. CV: Regular rate and rhythm without obvious murmurs. LUNGS: Decreased air movement bilaterally, appears to have poor effort. Crackles at lung bases bilaterally. Normal work of breathing. EXT: No edema. No calf tenderness. NEURO/PSYCH: Awake, alert. Appropriate insight and judgment. Normal speech. ( Jean Marie Shaffer MD R2) A/P Discharge Planning Pending ID recommendations. nAn has declined patient due to his drug use and Luis Alberto has also declined patient due to expense of medications. CM assisting with discharge plans. wdw Dr. Santiago, Dr. Damico (Jean Marie Shaffer MD R2) Attending Attestation Patient examined and case discussed with resident physician I have read the above note and agree with the assessment/plan as discussed with me I was involved in all medical decision making for this patient Robert Santiago M.D. (Robert Santiago MD) Problem List: (1) Bacteremia Status: Acute Plan: Concern for endocarditis due to presence of Staph Aureus in urine. Will need treatment x6 wks due to history of osteomyelitis and IVD use. Suspect cultures have been negative due to collection prior to the start of antibiotics. Echo negative for vegetations. -blood cultures and paraspinal fluid collection cultures with no growth to date * 1 blood culture positive on 07/21 significant for coagulase negative staph, possible contaminant -urine culture: Staph Aureus, sensitive to Daptomycin -I&D of left wrist abscess wound culture: MRSA -Fungal culture no growth after 1 week Imaging: * MRI of lumbar spine: elongated fluid collections in the posterior paraspinal soft tissues on the right and left without MRI features convincing for abscess. These are presumably seroma or hematomas. Also no evidence of osteomyelitis. * CT abdomen: No abscesses seen ID consulted: appreciate recommendations * Continue Daptomycin (started 07/31). Monitor LFTs and CK, urine output. Anticipated end date 09/03/16. * No PICC untill cleared by ID * Consulted GI and nephrology * Stopped Vancomycin (07/22-07/30), Rocephin (07/21-07/31) and Linezolid (07/31) due to renal function. (2) MILLER (acute kidney injury) Status: Acute Plan: Found to have an acute increase in Cr from a baseline around 1.0. Etiology due to aggressive diuresis, vancomycin toxicity versus NSAIDs. Nephrology consulted: appreciate recommendations. * Renal US unremarkable: no evidence for hydronephrosis. Posterior bladder wall thickening or dependent debris. * Concern for acute interstitial nephritis but urine eosinophils were negative -Improving, Cr 1.29 today -Fluids discontinued -Vancomycin discontinued, now receiving Daptomycin -Continue to monitor renal function -Repeat UA negative -Avoid highly nephrotoxic medications (3) CHF (congestive heart failure) Status: Chronic Plan: Initially presented for chest pain and shortness of breath. Echo from 2015 showed an EF of 55-60%. BNP on admission was significantly elevated. Suspect CHF contributing to symptoms of chronic malaise -ACS evaluation negative -Repeat echo with an EF of 15-20% Cardiology consulted: Appreciate recommendations * Nuclear stress test showing ventriculomegaly with large fixed perfusion abnormality and no evidence of stress-induced reversible abnormalities. Severe global hypokinesia with 14% ejection fraction. * Probably non-ischemic etiology * OK to dc from a cardiac standpoint Imaging: * CXR 08/05/16: Pulmonary hilar vascular congestion and increased pleural effusion on the right. * CXR 07/21/16: Blunting of both costophrenic angles with some degree of effusion. Some focal increased interstitial markings the right lower lung suggesting some asymmetric basilar congestion or volume overload. No confluent infiltrate. * CTA 07/21/16: No evidence of PE. Bilateral effusions left basilar atelectasis. Medications: * Lasix 20 mg po daily * KCL 10meq po daily * Aspirin 81mg daily * Lisinopril 5 mg po daily * Coreg 3.125 mg po q12h (4) Elevated liver enzymes Status: Acute Plan: Resolved Previously with elevated liver enzymes along with an elevated INR. -LFTs within normal limits on 08/05 -GI consulted: appreciate recommendations -AFP normal -IAN negative -Mitochondrial M2 antibody pending -Iobbx-2-yvsxrxozjjr slightly elevated at 195, -Ceruloplasmin elevated at 48 -Anti-smooth muscle Ab negative -Monitor LFTs -Liver US: heterogeneous and mildly lobular suggestive of hepatocellular disease such as cirrhosis. Trace fluid adjacent to liver. -Hepatitis panel and HIV negative -Avoid hepatotoxic medications (5) UTI (urinary tract infection) Status: Acute Plan: Plan as above under bacteremia (6) DM (diabetes mellitus) Status: Chronic Plan: -Continue accuchecks ACHS, low dose sliding scale -Patient requiring 2 units of SSI in the past 24 hours -Home Metformin held, Anticipate discharging on medication if renal function is adequate. -Will add basal insulin if needed -compensation business partner consulted (7) Polysubstance abuse Status: Chronic Plan: Patient admits to marijuana, Dilaudid, cocaine, methamphetamine drug use. UDS positive for cocaine and methamphetamine (8) Nutrition, metabolism, and development symptoms Status: Acute Plan: Nutrition: Diabetic diet increased to 2500 kcal Fluids: None, pt tolerating PO Electrolytes: unremarkable, continue to monitor DVT prophylaxis: Lovenox GI prophylaxis: Not indicated Anxiety: Xanax 0.25mg PRN, Zoloft 50 mg po daily, sertraline 50 mg po daily (Jean Marie Shaffer MD R2) Problem Qualifiers (1) CHF (congestive heart failure): Qualified Code: I50.21 - Acute systolic congestive heart failure (2) DM (diabetes mellitus): Qualified Code: E11.9 - Type 2 diabetes mellitus without complication, without long-term current use of insulin Jean Marie Shaffer MD R2 Aug 08, 2016 09:39 Robert Santiago MD Aug 08, 2016 14:22
[2016-08-08] MEDS: ASPIRIN EC 81 MG TABEC PO SCH (10:29)
[2016-08-08] MEDS: POTASSIUM CHLORIDE 10 MEQ CONTROLLED RELEASE TAB PO SCH (10:29)
[2016-08-08] MEDS: FUROSEMIDE 20 MG TAB PO SCH (10:29)
[2016-08-08] MEDS: LISINOPRIL 5 MG TAB PO SCH (10:29)
[2016-08-08] MEDS: SERTRALINE HCL 50 MG TAB PO SCH (10:29)
[2016-08-08] MEDS: CARVEDILOL 3.125 MG TAB PO SCH ×2 (10:30→21:35)
[2016-08-08] MEDS: SODIUM CHLORIDE 0.9% FLUSH 5 ML FLUSH FLUSH SCH ×2 (10:31→21:36)
[2016-08-08 10:58] LABS: INDIRECT BILIRUBIN 0.5 MG/DL (0.0-0.8); TOTAL BILIRUBIN ADULT 0.7 MG/DL (0.2-1.0)
[2016-08-08 12:00] VITALS: BP 130/81; PULSE 82; RESP 20; TEMP 97.3; O2SAT 98
[2016-08-08] MEDS: SODIUM CHLORIDE 0.9% IV SCH (12:25)
[2016-08-08] MEDS: ENOXAPARIN SODIUM 40 MG/0.4 ML SYRINGE SQ SCH (12:25)
[2016-08-08] MEDS: DAPTOMYCIN IV SCH (12:25)
[2016-08-08 16:00] VITALS: BP 134/91; PULSE 81; RESP 28; TEMP 97.4; O2SAT 97
[2016-08-08 20:00] VITALS: BP 141/90; PULSE 87; RESP 18; TEMP 97.5; O2SAT 93
[2016-08-08] MEDS: ALPRAZolam 0.25 MG TAB PO PRN (21:46)
[2016-08-09] VITALS: BP 122/79; PULSE 75; RESP 16; TEMP 97.4; O2SAT 98
[2016-08-09 04:00] VITALS: BP 146/100; PULSE 75; RESP 16; TEMP 96.7; O2SAT 97
[2016-08-09] MEDS: INSULIN ASPART SUPPLEMENTAL SCALE SQ SCH ×4 (05:38→21:16)
[2016-08-09 08:03] LABS: BICARBONATE 28.1 MEQ/L (21.0-32.0); POTASSIUM 3.9 MEQ/L (3.5-5.1)
[2016-08-09 08:06] VITALS: BP 138/92; PULSE 85; RESP 18; TEMP 97.3; O2SAT 93
[2016-08-09] MEDS: POTASSIUM CHLORIDE 10 MEQ CONTROLLED RELEASE TAB PO SCH (08:27)
[2016-08-09] MEDS: FUROSEMIDE 20 MG TAB PO SCH (08:27)
[2016-08-09] MEDS: LISINOPRIL 5 MG TAB PO SCH (08:27)
[2016-08-09] MEDS: SERTRALINE HCL 50 MG TAB PO SCH (08:27)
[2016-08-09] MEDS: ASPIRIN EC 81 MG TABEC PO SCH (08:27)
[2016-08-09] MEDS: CARVEDILOL 3.125 MG TAB PO SCH ×2 (08:27→21:15)
[2016-08-09] MEDS: SODIUM CHLORIDE 0.9% FLUSH 5 ML FLUSH FLUSH SCH ×2 (08:28→21:15)
[2016-08-09] MEDS ORDERED: RESP: ALBUTEROL 2.5 MG/IPRATROPIUM 0.5 MG NEB (PRN) NEB (11:30)
--- NOTE | 2016-08-09 11:30 | HHI.FPPN ---
Subjective Remarks Pt seen and examined this morning. No acute events overnight. Pt reports that at times he feels short of breath. He has a history of asthma as a child and quit smoking but has a 20 pack year smoking history.He denies chest pain, abdominal pain, leg pain. He talked yesterday briefly with the rn diabetes educator , and found this to be somewhat helpful. He has not acute concerns and anticipates going to [facility] shortly. Anticipate transfer to [place] later this morning per nurse sponsorship manager. Objective Vitals Vital Signs Date Time Temp Pulse Resp B/P Pulse Ox O2 Delivery O2 Flow Rate FiO2 08/09/16 08:52 Room Air 08/09/16 08:06 97.3 85 18 138/92 93 08/09/16 04:00 96.7 75 16 146/100 97 08/09/16 00:00 97.4 75 16 122/79 98 08/08/16 21:30 Room Air 08/08/16 20:00 97.5 87 18 141/90 93 08/08/16 16:00 97.4 81 28 134/91 97 08/08/16 12:00 97.3 82 20 130/81 98 I/O 08/08/16 08/08/16 08/08/16 08/09/16 08/09/16 08/09/16 07:00 15:00 23:00 07:00 15:00 23:00 Intake Total 0 ml 720 ml 360 ml 360 ml Output Total 600 ml 400 ml Balance -600 ml 720 ml -40 ml 360 ml Intake Oral 0 ml 720 ml 360 ml 360 ml Output Urine Total 600 ml 400 ml # Voids 4 1 # Bowel Movements 0 0 1 1 Result Diagram: 08/08/16 0602 08/09/16 0700 Objective Remarks GEN: Thin male in no acute distress. Sitting comfortably in bed. CV: Regular rate and rhythm without obvious murmurs. LUNGS: Decreased air movement bilaterally, appears to have poor effort. No crackles, wheezes rales or rhonchi appreciated. Normal work of breathing. EXT: No edema. No calf tenderness. NEURO/PSYCH: Awake, alert. Appropriate insight and judgment. Normal speech. A/P Discharge Planning Pending ID recommendations. Pt to be transferred to [place] to complete antibiotic treatment. wdw Dr. Santiago Problem List: (1) Bacteremia Status: Acute Plan: Concern for endocarditis due to presence of Staph Aureus in urine. Will need treatment x6 wks due to history of osteomyelitis and IVD use. Suspect cultures have been negative due to collection prior to the start of antibiotics. Echo negative for vegetations. -blood cultures and paraspinal fluid collection cultures with no growth to date * 1 blood culture positive on 07/21 significant for coagulase negative staph, possible contaminant -urine culture: Staph Aureus, sensitive to Daptomycin -I&D of left wrist abscess wound culture: MRSA -Fungal culture no growth after 1 week Imaging: * MRI of lumbar spine: elongated fluid collections in the posterior paraspinal soft tissues on the right and left without MRI features convincing for abscess. These are presumably seroma or hematomas. Also no evidence of osteomyelitis. * CT abdomen: No abscesses seen ID consulted: appreciate recommendations * Continue Daptomycin (started 07/31). Monitor LFTs and CK, urine output. Anticipated end date 09/03/16. * No PICC untill cleared by ID * Consulted GI and nephrology * Stopped Vancomycin (07/22-07/30), Rocephin (07/21-07/31) and Linezolid (07/31) due to renal function. (2) MILLER (acute kidney injury) Status: Acute Plan: Found to have an acute increase in Cr from a baseline around 1.0. Etiology due to aggressive diuresis, vancomycin toxicity versus NSAIDs. Nephrology consulted: appreciate recommendations. * Renal US unremarkable: no evidence for hydronephrosis. Posterior bladder wall thickening or dependent debris. * Concern for acute interstitial nephritis but urine eosinophils were negative -Improving, Cr 1.16 today -Fluids discontinued -Vancomycin discontinued, now receiving Daptomycin -Continue to monitor renal function -Repeat UA negative -Avoid highly nephrotoxic medications (3) CHF (congestive heart failure) Status: Chronic Plan: Initially presented for chest pain and shortness of breath. Echo from 2015 showed an EF of 55-60%. BNP on admission was significantly elevated. Suspect CHF contributing to symptoms of chronic malaise -ACS evaluation negative -Repeat echo with an EF of 15-20% Cardiology consulted: Appreciate recommendations * Nuclear stress test showing ventriculomegaly with large fixed perfusion abnormality and no evidence of stress-induced reversible abnormalities. Severe global hypokinesia with 14% ejection fraction. * Probably non-ischemic etiology * OK to dc from a cardiac standpoint Imaging: * CXR 1/31/17: Pulmonary hilar vascular congestion and increased pleural effusion on the right. * CXR 07/21/16: Blunting of both costophrenic angles with some degree of effusion. Some focal increased interstitial markings the right lower lung suggesting some asymmetric basilar congestion or volume overload. No confluent infiltrate. * CTA 07/21/16: No evidence of PE. Bilateral effusions left basilar atelectasis. Medications: * Lasix 20 mg po daily * KCL 10meq po daily * Aspirin 81mg daily * Lisinopril 5 mg po daily * Coreg 3.125 mg po q12h (4) DM (diabetes mellitus) Status: Chronic Plan: -Continue accuchecks ACHS, low dose sliding scale -Patient requiring 7 units of SSI in the past 24 hours -Home Metformin held, Anticipate discharging on medication if renal function is adequate. -Will add basal insulin if needed -special educator consulted (5) Polysubstance abuse Status: Chronic Plan: Patient admits to marijuana, Dilaudid, cocaine, methamphetamine drug use. UDS positive for cocaine and methamphetamine (6) Nutrition, metabolism, and development symptoms Status: Acute Plan: Nutrition: Diabetic diet 2500 kcal Fluids: None, pt tolerating PO Electrolytes: unremarkable, continue to monitor DVT prophylaxis: Lovenox GI prophylaxis: Not indicated Anxiety: Xanax 0.25mg PRN, Zoloft 50 mg po daily, sertraline 50 mg po daily Asthma: Duonebs Q6hrs prn SOB Problem Qualifiers (1) CHF (congestive heart failure): Qualified Code: I50.21 - Acute systolic congestive heart failure (2) DM (diabetes mellitus): Qualified Code: E11.9 - Type 2 diabetes mellitus without complication, without long-term current use of insulin Jean Marie Shaffer MD R2 Aug 09, 2016 11:30
[2016-08-09 12:01] VITALS: BP 147/98; PULSE 92; RESP 20; TEMP 98.2; O2SAT 95
[2016-08-09] MEDS: DAPTOMYCIN IV SCH (13:06)
[2016-08-09] MEDS: SODIUM CHLORIDE 0.9% IV SCH (13:06)
[2016-08-09] MEDS: ENOXAPARIN SODIUM 40 MG/0.4 ML SYRINGE SQ SCH (13:15)
[2016-08-09] MEDS: ALPRAZolam 0.25 MG TAB PO PRN ×2 (15:02→21:15)
[2016-08-09 20:00] VITALS: BP 142/100; PULSE 75; RESP 14; TEMP 97.5; O2SAT 95
[2016-08-09 23:58] LABS: MITOCHONDRIAL ABS LESS THAN 20.0 U (())
[2016-08-10 04:00] VITALS: BP 140/82
[2016-08-10] MEDS: INSULIN ASPART SUPPLEMENTAL SCALE SQ SCH ×4 (06:22→21:19)
[2016-08-10 08:00] VITALS: BP 129/90; PULSE 75; RESP 18; TEMP 98.6; O2SAT 97
[2016-08-10] MEDS: ASPIRIN EC 81 MG TABEC PO SCH (08:49)
[2016-08-10] MEDS: POTASSIUM CHLORIDE 10 MEQ CONTROLLED RELEASE TAB PO SCH (08:49)
[2016-08-10] MEDS: SODIUM CHLORIDE 0.9% FLUSH 5 ML FLUSH FLUSH SCH ×2 (08:50→21:20)
[2016-08-10] MEDS: SERTRALINE HCL 50 MG TAB PO SCH (08:50)
[2016-08-10] MEDS: LISINOPRIL 5 MG TAB PO SCH (08:50)
[2016-08-10] MEDS: CARVEDILOL 3.125 MG TAB PO SCH ×2 (08:50→21:20)
[2016-08-10] MEDS: FUROSEMIDE 20 MG TAB PO SCH (08:50)
[2016-08-10] MEDS: SODIUM CHLORIDE 0.9% IV SCH (11:50)
[2016-08-10] MEDS: ALPRAZolam 0.25 MG TAB PO PRN (11:50)
[2016-08-10] MEDS: ENOXAPARIN SODIUM 40 MG/0.4 ML SYRINGE SQ SCH (11:50)
[2016-08-10] MEDS: DAPTOMYCIN IV SCH (11:50)
--- NOTE | 2016-08-10 11:57 | HHI.PR ---
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 Patient originally started with cardiac workup because of the chest pain. Patient was tachycardic with elevated lactic acid level. Patient subsequently did have one set of blood cultures turn positive with staph coag negative. Patient did have urinary tract infection with staph aureus. Because is finding the patient's high risk of endocarditis, bacteremia patient started on vancomycin for treatment. Infectious disease was consulted. Echocardiogram was performed which did not indicate any vegetation. Patient had worsening of his renal functions and subsequent stopped vancomycin and patient was started on daptomycin. Patient did have history of back surgery, MSSA infection of the hardware which was removed. MRI of the lumbar spine was performed which showed elongated fluid collection which was consistent with seroma/hematoma. No MRI findings indicating abscess. Patient undergoing IV antibiotics until September 03, 2016. Infectious disease have made recommendations. Patient was recommended transfer to [place] for continuation of his medical care and IV antibiotics. I notify the patient and the patient will remain [place] until he continues his antibiotics. He continues on narcotic for pain control. I notify him that we have less than a month in order to discontinue him off of all pain medicine. I notified him that would be changing his medications every 3-5 days until he is off narcotics at least one week prior to discharge. Patient acknowledged understanding. Objective Vitals Vital Signs Date Time Temp Pulse Resp B/P Pulse Ox O2 Delivery O2 Flow Rate FiO2 08/10/16 08:00 Room Air 08/10/16 08:00 98.6 75 18 129/90 97 08/10/16 04:00 140/82 08/09/16 20:00 97.5 75 14 142/100 95 08/09/16 20:00 Room Air 08/09/16 12:01 98.2 92 20 147/98 95 I/O 08/09/16 08/09/16 08/09/16 08/10/16 08/10/16 08/10/16 07:00 15:00 23:00 07:00 15:00 23:00 Intake Total 360 ml 240 ml 480 ml 480 ml Balance 360 ml 240 ml 480 ml 480 ml Intake Oral 360 ml 240 ml 480 ml 480 ml # Voids 1 2 3 3 # Bowel Movements 1 0 1 1 Result Diagram: 08/08/16 0602 08/09/16 0700 Objective Remarks GENERAL: Well-developed, well-nourished, in no acute distress. alert and orientated HEENT: Head is normocephalic without any lesions or masses noted. Facial features are symmetric. Eyes: Extraocular muscles are intact. Conjunctivae were clear. NECK: Trachea midline no deviation. No JVD, CARDIAC: Regular rhythm, regular rate. S1/S2 are heard. No murmurs gallops or rubs. LUNGS: Clear to auscultation bilaterally. No wheeze, rhonchi or rales. No use of accessory muscles on inspiration or expiration. ABDOMEN: Soft, nontender. Nondistended. Bowel sounds heard in all 4 quadrants. No organomegaly or masses. Negative rebound, negative guarding EXTREMITIES: No edema, pulses are equal bilaterally. No cyanosis or clubbing NEUROLOGY: Mood and affect appear appropriate. Cranial nerves II through XII grossly intact. Moving all extremities, speech is clear Urinary Catheter: No Vascular Central Line Catheter: No A/P Assessment and Plan Bacteremia, MSSA Patient high risk due to IV drug use, previous spine osteomyelitis, possible endocarditis, spine hardware infection status post removal. Echocardiogram was performed which did not indicate any abnormalities or vegetations Blood cultures with one set positive with staph coag negative, negative cultures since 07/23/16 Infectious disease was consulted and followed the patient with recommendations to include: Daptomycin with stop date 09/03/16 CBC, CMP, CPK level weekly On-call infectious disease consult the last week of treatment. Recommend MRI of spine to see status of fluid collections prior to discharge. Left wrist abscesses, likely from IV drug use I&D was performed Cultures indicate MRSA Fungal cultures negative History of previous back surgery Status post removal of hardware secondary to previous MSSA infection MRI of the spine indicates elongated fluid collections in the posterior paraspinous soft tissue on the right and left without MRI features convincing for abscess, these are presumed seromas and or old hematomas. No evidence of osteomyelitis Urinary tract infection Staph aureus possible translocation from staph bacteremia Acute renal failure superimposed on chronic kidney disease stage III Likely secondary to diuresis, vancomycin Renal functions have returned to baseline Nephrology consulted: appreciate recommendations. Renal US unremarkable: no evidence for hydronephrosis. Posterior bladder wall thickening or dependent debris. Chronic systolic congestive heart failure BNP on admission was significantly elevated. Echocardiogram shows systolic function severely reduced, ejection fraction 15- 20%. ACS evaluation negative Cardiology consulted and made recommendations, nonischemic cardiomyopathy. Okay to discharge from cardiology standpoint Nuclear stress test showing ventriculomegaly with large fixed perfusion abnormality and no evidence of stress-induced reversible abnormalities. Severe global hypokinesia with 14% ejection fraction. Continue Medications: Lasix 20 mg po daily KCL 10meq po daily Aspirin 81mg daily Lisinopril 5 mg po daily Coreg 3.125 mg po q12h Diabetes Continue Accu-Cheks with sliding scale insulin Required 9 units of regular insulin in the last 24 hours certified adapted physical educator consulted Consider oral hypoglycemics metformin 2500-calorie ADA diet, will decrease down 1800 meagan Polysubstance abuse Patient admits to marijuana, Dilaudid, cocaine, methamphetamine drug use. UDS positive for cocaine and methamphetamine Patient counseled on cessation Anxiety: Xanax 0.25mg PRN, Zoloft 50 mg po daily DVT prophylaxis: Lovenox Discharge Planning Discharge planning per case management, likely discharge after antibiotics complete on 09/03/16 Jalil Gupta Aug 10, 2016 11:57 Stefany Riddle MD Aug 10, 2016 14:24
[2016-08-10] MEDS ORDERED: ACETAMINOPHEN 325 MG TAB PO PRN (14:00)
[2016-08-10] MEDS ORDERED: ONDANSETRON ODT 4 MG TAB PO PRN (14:00)
[2016-08-10 20:00] VITALS: BP 144/107; PULSE 88; RESP 14; TEMP 97.5; O2SAT 99
[2016-08-11] MEDS: ALPRAZolam 0.25 MG TAB PO PRN ×2 (02:44→15:55)
[2016-08-11] MEDS: INSULIN ASPART SUPPLEMENTAL SCALE SQ SCH ×4 (06:37→20:51)
[2016-08-11 08:00] VITALS: BP 131/97; PULSE 83; RESP 18; TEMP 96.2; O2SAT 100
[2016-08-11] MEDS: POTASSIUM CHLORIDE 10 MEQ CONTROLLED RELEASE TAB PO SCH (08:34)
[2016-08-11] MEDS: LISINOPRIL 5 MG TAB PO SCH (08:34)
[2016-08-11] MEDS: SERTRALINE HCL 50 MG TAB PO SCH (08:34)
[2016-08-11] MEDS: FUROSEMIDE 20 MG TAB PO SCH (08:34)
[2016-08-11] MEDS: ASPIRIN EC 81 MG TABEC PO SCH (08:34)
[2016-08-11] MEDS: SODIUM CHLORIDE 0.9% FLUSH 5 ML FLUSH FLUSH SCH ×2 (08:35→20:50)
[2016-08-11] MEDS: CARVEDILOL 3.125 MG TAB PO SCH ×2 (08:49→20:51)
--- NOTE | 2016-08-11 10:32 | HHI.PR ---
Subjective Remarks Patient seen and examined today. Patient denies any major complaints. His only problem at this time is we are not letting him eat enough food. Objective Vitals Vital Signs Date Time Temp Pulse Resp B/P Pulse Ox O2 Delivery O2 Flow Rate FiO2 08/11/16 09:45 14 08/11/16 08:00 96.2 83 18 131/97 100 08/10/16 20:00 97.5 88 14 144/107 99 I/O 08/10/16 08/10/16 08/10/16 08/11/16 08/11/16 08/11/16 07:00 15:00 23:00 07:00 15:00 23:00 Intake Total 480 ml 480 ml 480 ml 240 ml Balance 480 ml 480 ml 480 ml 240 ml Intake Oral 480 ml 480 ml 480 ml 240 ml # Voids 3 5 2 2 # Bowel Movements 1 1 0 0 Result Diagram: 08/08/16 0602 08/09/16 0700 Objective Remarks GENERAL: Well-developed, well-nourished, in no acute distress. alert and orientated HEENT: Head is normocephalic without any lesions or masses noted. Facial features are symmetric. Eyes: Extraocular muscles are intact. Conjunctivae were clear. NECK: Trachea midline no deviation. No JVD, CARDIAC: Regular rhythm, regular rate. S1/S2 are heard. No murmurs gallops or rubs. LUNGS: Clear to auscultation bilaterally. No wheeze, rhonchi or rales. No use of accessory muscles on inspiration or expiration. ABDOMEN: Soft, nontender. Nondistended. Bowel sounds heard in all 4 quadrants. No organomegaly or masses. Negative rebound, negative guarding EXTREMITIES: No edema, pulses are equal bilaterally. No cyanosis or clubbing NEUROLOGY: Mood and affect appear appropriate. Cranial nerves II through XII grossly intact. Moving all extremities, speech is clear Urinary Catheter: No Vascular Central Line Catheter: No A/P Assessment and Plan Bacteremia, MSSA Patient high risk due to IV drug use, previous spine osteomyelitis, possible endocarditis, spine hardware infection status post removal. Echocardiogram was performed which did not indicate any abnormalities or vegetations Blood cultures with one set positive with staph coag negative, negative cultures since 07/23/16 Infectious disease was consulted and followed the patient with recommendations to include: Daptomycin with stop date 09/03/16 CBC, CMP, CPK level weekly On-call infectious disease consult the last week of treatment. Recommend MRI of spine to see status of fluid collections prior to discharge. Pain control, adjusted to, will need to continue to adjust every 5-7 days until off pain medicine prior to discharge Tylenol 650 mg every 4 hours as needed for pain 15 Oxycodone 5 mg every 6 hours as needed for pain 6/10 Left wrist abscesses, likely from IV drug use I&D was performed Cultures indicate MRSA Fungal cultures negative History of previous back surgery Status post removal of hardware secondary to previous MSSA infection MRI of the spine indicates elongated fluid collections in the posterior paraspinous soft tissue on the right and left without MRI features convincing for abscess these are presumed seromas and or old hematomas. No evidence of osteomyelitis Urinary tract infection Staph aureus possible translocation from staph bacteremia Acute renal failure superimposed on chronic kidney disease stage III Likely secondary to diuresis, vancomycin Renal functions have returned to baseline Nephrology consulted: appreciate recommendations. Renal US unremarkable: no evidence for hydronephrosis. Posterior bladder wall thickening or dependent debris. Chronic systolic congestive heart failure BNP on admission was significantly elevated. Echocardiogram shows systolic function severely reduced, ejection fraction 15- 20%. ACS evaluation negative Cardiology consulted and made recommendations, nonischemic cardiomyopathy. Okay to discharge from cardiology standpoint Nuclear stress test showing ventriculomegaly with large fixed perfusion abnormality and no evidence of stress-induced reversible abnormalities. Severe global hypokinesia with 14% ejection fraction. Continue Medications: Lasix 20 mg po daily KCL 10meq po daily Aspirin 81mg daily Lisinopril 5 mg po daily Coreg 3.125 mg po q12h Diabetes Continue Accu-Cheks with sliding scale insulin Required 7 units of regular insulin in the last 24 hours clinical systems educator consulted Consider oral hypoglycemics metformin 1800 ADA diet Polysubstance abuse Patient admits to marijuana, Dilaudid, cocaine, methamphetamine drug use. UDS positive for cocaine and methamphetamine Patient counseled on cessation Malnutrition Prealbumin 9, continue to follow monthly Consult dietary for recommendations Add nutritional supplement to each meal Anxiety: Xanax 0.25mg PRN, Zoloft 50 mg po daily DVT prophylaxis: Lovenox Discharge Planning Discharge planning per case management, likely discharge after antibiotics complete on 09/03/16 Jalil Gupta Aug 11, 2016 10:00
[2016-08-11] MEDS: ENOXAPARIN SODIUM 40 MG/0.4 ML SYRINGE SQ SCH (11:50)
[2016-08-11] MEDS: SODIUM CHLORIDE 0.9% IV SCH (12:20)
[2016-08-11] MEDS: DAPTOMYCIN IV SCH (12:20)
[2016-08-11 20:00] VITALS: BP 142/97; PULSE 85; RESP 18; TEMP 95.8; O2SAT 98
[2016-08-12] MEDS: ALPRAZolam 0.25 MG TAB PO PRN (05:04)
[2016-08-12] MEDS: INSULIN ASPART SUPPLEMENTAL SCALE SQ SCH ×4 (06:56→20:15)
[2016-08-12 08:00] VITALS: BP 128/106; PULSE 83; RESP 20; TEMP 96.5; O2SAT 96
[2016-08-12] MEDS: SERTRALINE HCL 50 MG TAB PO SCH (08:52)
[2016-08-12] MEDS: LISINOPRIL 5 MG TAB PO SCH (08:53)
[2016-08-12] MEDS: POTASSIUM CHLORIDE 10 MEQ CONTROLLED RELEASE TAB PO SCH (08:53)
[2016-08-12] MEDS: ASPIRIN EC 81 MG TABEC PO SCH (08:53)
[2016-08-12] MEDS: SODIUM CHLORIDE 0.9% FLUSH 5 ML FLUSH FLUSH SCH ×2 (08:53→20:07)
[2016-08-12] MEDS: CARVEDILOL 3.125 MG TAB PO SCH ×2 (08:53→20:15)
[2016-08-12] MEDS: FUROSEMIDE 20 MG TAB PO SCH (08:53)
[2016-08-12] MEDS ORDERED: RESP: ALBUTEROL 1.25 MG/3 ML NEB (PRN) NEB (09:15)
[2016-08-12 10:12] VITALS: O2SAT 90
[2016-08-12 10:25] VITALS: O2SAT 99
--- NOTE | 2016-08-12 11:23 | RADHPO ---
EXAM DATE/TIME: 08/12/2016 10:58 [facility] COMPARISON: CHEST SINGLE AP, August 05, 2016, 10:47. INDICATIONS: Worsening short of breath. MEDICAL HISTORY: Hypercholesterolemia. Hypertension. Methicillin-resistant Staphylococcus aureus. CVA. Dyspnea. Diabet es. Multisubstance abuse. Endocarditis SURGICAL HISTORY: Cholecystectomy. Appendectomy. ENCOUNTER: Subsequent ACUITY: 1 month PAIN SCORE: 0/10 LOCATION: Chest FINDINGS: The heart is enlarged. A small right pleural effusion is noted. Moderate pulmonary vascular congest ion is noted bilaterally. CONCLUSION: 1. Moderate pulmonary vascular congestion bilaterally. 2. Cardiomegaly. 3. Small right pleural effusion. Vargas Sue MD on August 12, 2016 at 11:10 Board Certified Radiologist. This report was verified electronically.
--- NOTE | 2016-08-12 11:29 | HHI.PR ---
Subjective Remarks Follow-up for bacteremia. RN called me informing me the patient was short of breath on exertion and his O2 saturation had dropped. Patient states he is increasingly short of breath even at rest. He admits to dry cough but denies any sputum production. Admits to some abdominal soreness, Denies any fevers or chest pain. Objective Vitals Vital Signs Date Time Temp Pulse Resp B/P Pulse Ox O2 Delivery O2 Flow Rate FiO2 08/12/16 10:25 99 Nasal Cannula 2.00 08/12/16 10:12 90 21 08/11/16 20:00 95.8 85 18 142/97 98 I/O 08/11/16 08/11/16 08/11/16 08/12/16 08/12/16 08/12/16 06:59 14:59 22:59 06:59 14:59 22:59 Intake Total 240 ml 1400 ml 120 ml Balance 240 ml 1400 ml 120 ml Intake Oral 240 ml 1400 ml 120 ml # Voids 2 5 3 1 # Bowel Movements 0 0 Result Diagram: 08/08/16 0602 08/09/16 0700 Objective Remarks GENERAL: Well-nourished, well developed patient no apparent distress. SKIN: Warm and dry. HEAD: Atraumatic. Normocephalic. CARDIOVASCULAR: Regular rate and rhythm. RESPIRATORY: No accessory muscle use. Crackles predominantly over the right lower lobe. Nasal cannula in place. Patient appears relaxed. GASTROINTESTINAL: Abdomen soft, non-tender, nondistended. MUSCULOSKELETAL: No lower extremity edema bilaterally. NEUROLOGICAL: Awake and alert. Motor grossly within normal limits. Normal speech. PSYCHIATRIC: Appropriate mood and affect; insight and judgment normal. Urinary Catheter: No Vascular Central Line Catheter: No A/P Assessment and Plan Bacteremia, MSSA Patient high risk due to IV drug use, previous spine osteomyelitis, possible endocarditis, spine hardware infection status post removal. Echocardiogram was performed which did not indicate any abnormalities or vegetations Blood cultures with one set positive with staph coag negative, negative cultures since 07/23/16 Infectious disease was consulted and followed the patient with recommendations to include: Daptomycin with stop date 09/03/16 CBC, CMP, CPK level weekly On-call infectious disease consult the last week of treatment. Recommend MRI of spine to see status of fluid collections prior to discharge. Pain control; need to continue to adjust every 5-7 days until off pain medicine prior to discharge Tylenol 650 mg every 4 hours as needed for pain 15 Oxycodone 5 mg every 6 hours as needed for pain /, adjusted last on . Left wrist abscesses, likely from IV drug use I&D was performed Cultures 07/23 indicates MRSA Fungal cultures negative History of previous back surgery Status post removal of hardware secondary to previous MSSA infection MRI of the spine indicates elongated fluid collections in the posterior paraspinous soft tissue on the right and left without MRI features convincing for abscess these are presumed seromas and or old hematomas. No evidence of osteomyelitis Urinary tract infection Staph aureus on 07/21; possible translocation from staph bacteremia Acute renal failure superimposed on chronic kidney disease stage III Likely secondary to diuresis, vancomycin Renal functions have returned to baseline Nephrology consulted: appreciate recommendations. Renal US unremarkable: no evidence for hydronephrosis. Posterior bladder wall thickening or dependent debris. Chronic systolic congestive heart failure BNP on admission was significantly elevated. Echocardiogram shows systolic function severely reduced, ejection fraction 15- 20%. ACS evaluation negative Cardiology consulted and made recommendations, nonischemic cardiomyopathy. Okay to discharge from cardiology standpoint Nuclear stress test showing ventriculomegaly with large fixed perfusion abnormality and no evidence of stress-induced reversible abnormalities. Severe global hypokinesia with 14% ejection fraction. Continue Medications: Lasix 20 mg po daily KCL 10meq po daily Aspirin 81mg daily Lisinopril 5 mg po daily Coreg 3.125 mg po q12h Patient increasingly short of breath today. O2 saturation previously normal on room air but decreased to 90%, upper 80's per nurse this morning requiring O2. Previous chest x-ray 08/05/16 with pulmonary vascular congestion and increased pleural effusion on the right. New chest x-ray today personally interpreted with moderate congestion bilaterally, small R pleural effusion. Discussed with Dr. Riddle. 80 mg IV Lasix now. Additional 40 mEq po KCl now with BMP in the am. Strict I & O. PO fluid restriction. Duonebs and oxygen prn. Repeat chest x-ray in the am. Patient was reassessed in the afternoon with Dr. Riddle. Bibasilar crackles on exam. He is feeling better and states he has had good urine output. Diabetes: BGL 288 this morning, but 97 after 5 units SSI. Hemoglobin A1c 8.6. Continue Accu-Checks with sliding scale insulin school vocational educator consulted Consider oral hypoglycemics, metformin. 1800 ADA diet Polysubstance abuse Patient admits to marijuana, Dilaudid, cocaine, methamphetamine drug use. UDS positive for cocaine and methamphetamine Patient counseled on cessation Malnutrition Prealbumin 9, continue to follow monthly Consult dietary for recommendations Add nutritional supplement to each meal Anxiety: Xanax 0.25mg PRN, Zoloft 50 mg po daily DVT prophylaxis: Yazmin Dove Aug 12, 2016 11:29
[2016-08-12] MEDS: ENOXAPARIN SODIUM 40 MG/0.4 ML SYRINGE SQ SCH (11:43)
[2016-08-12] MEDS ORDERED: FUROSEMIDE 100 MG/10 ML VIAL IV PUSH ONE (12:00)
[2016-08-12] MEDS: SODIUM CHLORIDE 0.9% IV SCH (12:57)
[2016-08-12] MEDS: DAPTOMYCIN IV SCH (12:57)
[2016-08-12] MEDS ORDERED: POTASSIUM CHLORIDE 20 MEQ CONTROLLED RELEASE TAB PO ONE (13:00)
--- NOTE | 2016-08-12 13:36 | HHI.PR ---
Subjective Remarks This report is in ERROR Please disregard this report and all prior copies ! This report is in ERROR Please disregard this report and all prior copies ! This report is in ERROR Please disregard this report and all prior copies ! Objective Vitals Vital Signs Date Time Temp Pulse Resp B/P Pulse Ox O2 Delivery O2 Flow Rate FiO2 08/12/16 10:25 99 Nasal Cannula 2.00 08/12/16 10:12 90 21 08/12/16 08:00 96.5 83 20 128/106 96 08/11/16 20:00 95.8 85 18 142/97 98 I/O 08/11/16 08/11/16 08/11/16 08/12/16 08/12/16 08/12/16 07:00 15:00 23:00 07:00 15:00 23:00 Intake Total 240 ml 1400 ml 120 ml Balance 240 ml 1400 ml 120 ml Intake Oral 240 ml 1400 ml 120 ml # Voids 2 5 3 1 # Bowel Movements 0 0 Result Diagram: 08/08/16 0602 08/09/16 0700 Yazmin Patino Aug 12, 2016 13:36 endocarditis, spine hardware infection status post removal. Echocardiogram was performed which did not indicate any abnormalities or vegetations Blood cultures with one set positive with staph coag negative, negative cultures since 07/23/16 Infectious disease was consulted and followed the patient with recommendations to include: Daptomycin with stop date 09/03/16 CBC, CMP, CPK level weekly On-call infectious disease consult the last week of treatment. Recommend MRI of spine to see status of fluid collections prior to discharge. Pain control; need to continue to adjust every 5-7 days until off pain medicine prior to discharge Tylenol 650 mg every 4 hours as needed for pain 15 Oxycodone 5 mg every 6 hours as needed for pain 6/10, adjusted last on 5/5/ 17. Left wrist abscesses, likely from IV drug use I&D was performed Cultures 07/23 indicates MRSA Fungal cultures negative History of previous back surgery Status post removal of hardware secondary to previous MSSA infection MRI of the spine indicates elongated fluid collections in the posterior paraspinous soft tissue on the right and left without MRI features convincing for abscess these are presumed seromas and or old hematomas. No evidence of osteomyelitis Urinary tract infection Staph aureus on 07/21; possible translocation from staph bacteremia Acute renal failure superimposed on chronic kidney disease stage III Likely secondary to diuresis, vancomycin Renal functions have returned to baseline Nephrology consulted: appreciate recommendations. Renal US unremarkable: no evidence for hydronephrosis. Posterior bladder wall thickening or dependent debris. Chronic systolic congestive heart failure BNP on admission was significantly elevated. Echocardiogram shows systolic function severely reduced, ejection fraction 15- 20%. ACS evaluation negative Cardiology consulted and made recommendations, nonischemic cardiomyopathy. Okay to discharge from cardiology standpoint Nuclear stress test showing ventriculomegaly with large fixed perfusion abnormality and no evidence of stress-induced reversible abnormalities. Severe global hypokinesia with 14% ejection fraction. Continue Medications: Lasix 20 mg po daily KCL 10meq po daily Aspirin 81mg daily Lisinopril 5 mg po daily Coreg 3.125 mg po q12h Patient increasingly short of breath today. O2 saturation previously normal on room air but decreased to 90%, upper 80's per nurse this morning requiring O2. Previous chest x-ray 08/05/16 with pulmonary vascular congestion and increased pleural effusion on the right. New chest x-ray today personally interpreted with moderate congestion bilaterally, small R pleural effusion. Discussed with Dr. Riddle. 80 mg IV Lasix now. Additional 40 mEq po KCl now with BMP in the am. Strict I & O. PO fluid restriction. Duonebs and oxygen prn. Repeat chest x-ray in the am. Diabetes: BGL 288 this morning, but 97 after 5 units SSI. Hemoglobin A1c 8.6. Continue Accu-Checks with sliding scale insulin strip cutting machine operator consulted Consider oral hypoglycemics, metformin. 1800 ADA diet Polysubstance abuse Patient admits to marijuana, Dilaudid, cocaine, methamphetamine drug use. UDS positive for cocaine and methamphetamine Patient counseled on cessation Malnutrition Prealbumin 9, continue to follow monthly Consult dietary for recommendations Add nutritional supplement to each meal Anxiety: Xanax 0.25mg PRN, Zoloft 50 mg po daily DVT prophylaxis: Yazmin Dove Aug 12, 2016 13:36
[2016-08-12 20:00] VITALS: BP 127/94; PULSE 82; RESP 18; TEMP 95.8; O2SAT 99
[2016-08-12 20:45] VITALS: O2SAT 99
--- NOTE | 2016-08-13 06:35 | RADHPO ---
EXAM DATE/TIME: 08/13/2016 06:21 [facility] COMPARISON: CHEST SINGLE AP, August 12, 2016, 10:58. INDICATIONS : CHF. Short of breath. MEDICAL HISTORY : Congestive heart failure. SURGICAL HISTORY : None. ENCOUNTER: Subsequent ACUITY: 3 days PAIN SCORE: 5/10 LOCATION: Bilateral chest FINDINGS: There is a small right effusion, cardiomegaly and mild interstitial prominence. Osseous structures ar e intact. CONCLUSION: No significant change has occurred. Duglas Celis MD on August 13, 2016 at 6:33 Board Certified Radiologist. This report was verified electronically.
[2016-08-13] MEDS: ALPRAZolam 0.25 MG TAB PO PRN ×2 (06:39→21:03)
[2016-08-13] MEDS: INSULIN ASPART SUPPLEMENTAL SCALE SQ SCH ×4 (07:00→21:07)
[2016-08-13 07:20] VITALS: BP 118/64; PULSE 66
[2016-08-13] MEDS: POTASSIUM CHLORIDE 10 MEQ CONTROLLED RELEASE TAB PO SCH (07:43)
[2016-08-13] MEDS: LISINOPRIL 5 MG TAB PO SCH (07:43)
[2016-08-13] MEDS: CARVEDILOL 3.125 MG TAB PO SCH ×2 (07:43→21:04)
[2016-08-13] MEDS: ASPIRIN EC 81 MG TABEC PO SCH (07:43)
[2016-08-13] MEDS: SERTRALINE HCL 50 MG TAB PO SCH (07:43)
[2016-08-13] MEDS: FUROSEMIDE 20 MG TAB PO SCH (07:43)
[2016-08-13] MEDS: SODIUM CHLORIDE 0.9% FLUSH 5 ML FLUSH FLUSH SCH ×2 (07:58→21:04)
[2016-08-13 08:00] VITALS: BP 118/87; PULSE 73; RESP 20; TEMP 96.4; O2SAT 93
[2016-08-13 08:00] LABS: POTASSIUM 4.1 MEQ/L (3.5-5.1)
[2016-08-13 08:03] LABS: BICARBONATE 31.6 MEQ/L (21.0-32.0)
[2016-08-13] MEDS: ENOXAPARIN SODIUM 40 MG/0.4 ML SYRINGE SQ SCH (11:23)
[2016-08-13] MEDS: SODIUM CHLORIDE 0.9% IV SCH (11:24)
[2016-08-13] MEDS: DAPTOMYCIN IV SCH (11:24)
--- NOTE | 2016-08-13 12:10 | HHI.PR ---
Subjective Remarks Follow-up for CHF. Patient states he has less straining when he breathes today. States he is tired. Denies any chest pain. States he was urinating frequently yesterday (after Lasix). Denies any vomiting. Objective Vitals Vital Signs Date Time Temp Pulse Resp B/P Pulse Ox O2 Delivery O2 Flow Rate FiO2 08/13/16 08:00 96.4 73 20 118/87 93 08/13/16 07:20 66 118/64 08/12/16 20:45 99 Nasal Cannula 2.00 08/12/16 20:00 95.8 82 18 127/94 99 08/12/16 14:46 16 I/O 08/12/16 08/12/16 08/12/16 08/13/16 08/13/16 08/13/16 07:00 15:00 23:00 07:00 15:00 23:00 Intake Total 120 ml 350 ml 150 ml Output Total 200 ml 700 ml Balance 120 ml 150 ml -550 ml Intake Oral 120 ml 350 ml 150 ml Output Urine Total 200 ml 700 ml # Voids 3 1 2 # Bowel Movements 0 1 0 Result Diagram: 08/13/16 0725 Imaging Last Impressions Chest X-Ray 08/13/16 0600 Signed Impressions: Service Date/Time: Saturday, August 13, 2016 06:21 - CONCLUSION: No significant change has occurred. Duglas Celis MD Liver Ultrasound 08/02/16 0000 Signed Impressions: Service Date/Time: Tuesday, August 02, 2016 08:13 - CONCLUSION: 1. The liver is heterogeneous and mildly lobular suggestive of hepatocellular disease such as cirrhosis. 2. There is a trace of fluid adjacent to the liver.. 3. The pancreas was not visualized. Robert Johnson MD Renal Ultrasound 07/31/16 1517 Signed Impressions: Service Date/Time: July 20:19 - CONCLUSION: No evidence of hydronephrosis. Posterior bladder wall thickening or dependent debris. Ascites. Kwesi Coleman MD Abscess Drainage X-Ray 07/26/16 0000 Signed Impressions: Service Date/Time: Tuesday, July 26, 2016 16:35 - CONCLUSION: Uncomplicated aspiration of complex fluid collections in the lower back bilaterally as detailed above. Nikos Kaur MD Soft Tissue Ultrasound 07/25/16 1834 Signed Impressions: Service Date/Time: Monday, July 25, 2016 23:13 - CONCLUSION: In the parasagittal lower back, deep to the subcutaneous tissues, there are bilateral mixed cystic and solid lesion which measure up to 6 cm in size. Kalyan Hayes MD Myocardial Perfusion Scan Nuc Med 07/25/16 0000 Signed Impressions: Service Date/Time: Monday, July 25, 2016 10:43 - CONCLUSION: Ventriculomegaly with large fixed perfusion abnormality and no evidence of stress-induced reversible abnormalities. Severe global hypokinesia with 14%% ejection fraction. RISK CATEGORY: High (>3%% Annual Mortality Rate) Brown Tejeda MD Lumbar Spine MRI 07/24/16 0000 Signed Impressions: Service Date/Time: July 18:25 - CONCLUSION: 1. Previous surgery at L4/L5 and L5/S1 with subsequent hardware removal. There are elongated fluid collections in the posterior paraspinous soft tissues on the right and left without MRI features convincing for abscess. These are presumably seromas or old hematomas. Also no evidence of osteomyelitis.. 2. Normal thecal sac and epidural space. 3. No foraminal or spinal stenosis at any level. 4. Mild bilateral facet osteoarthritis and nonspecific synovitis at L3/L4. Kwesi Hinojosa MD Abdomen/Pelvis CT 07/23/16 0000 Signed Impressions: Service Date/Time: Saturday, July 23, 2016 17:42 - CONCLUSION: 1. Diverticulosis without diverticulitis. 2. Minimal ascites. 3. Dilated stomach. 4. A few punctate of second bilateral renal calculi. 5. Small bilateral pleural effusions. 6. No abscess seen. James Wyatt MD CT Angiography 07/21/16 0000 Signed Impressions: Service Date/Time: Thursday, July 21, 2016 11:06 - CONCLUSION: 1. No evidence of pulmonary embolism. 2. Bilateral effusions and left basilar atelectasis Amos Toledo MD Objective Remarks GENERAL: Well-nourished, well developed patient no apparent distress, appears tired. CARDIOVASCULAR: Regular rate and rhythm. RESPIRATORY: No accessory muscle use. Fewer crackles than yesterday. Breath sounds diminished throughout. Nasal cannula in place. Patient appears relaxed. MUSCULOSKELETAL: No lower extremity edema bilaterally. NEUROLOGICAL: Awake and alert. Motor grossly within normal limits. Normal speech. PSYCHIATRIC: Appropriate mood and affect; insight and judgment normal. Urinary Catheter: No Vascular Central Line Catheter: No A/P Assessment and Plan Bacteremia, MSSA Patient high risk due to IV drug use, previous spine osteomyelitis, possible endocarditis, spine hardware infection status post removal. Echocardiogram was performed which did not indicate any abnormalities or vegetations Blood cultures with one set positive with staph coag negative, negative cultures since 07/23/16 Infectious disease was consulted and followed the patient with recommendations to include: Daptomycin with stop date 09/03/16 CBC, CMP, CPK level weekly, next labs ordered for 08/15/16. On-call infectious disease consult the last week of treatment. Recommend MRI of spine to see status of fluid collections prior to discharge. Pain control; need to continue to adjust every 5-7 days until off pain medicine prior to discharge Tylenol 650 mg every 4 hours as needed for pain 15 Oxycodone 5 mg every 6 hours as needed for pain 12/13, adjusted last on . Left wrist abscesses, likely from IV drug use I&D was performed Cultures 07/23 indicates MRSA Fungal cultures negative History of previous back surgery Status post removal of hardware secondary to previous MSSA infection MRI of the spine indicates elongated fluid collections in the posterior paraspinous soft tissue on the right and left without MRI features convincing for abscess these are presumed seromas and or old hematomas. No evidence of osteomyelitis Urinary tract infection Staph aureus on 07/21; possible translocation from staph bacteremia Acute renal failure superimposed on chronic kidney disease stage III Likely secondary to diuresis, vancomycin Renal functions have returned to baseline Nephrology consulted: appreciate recommendations. Renal US unremarkable: no evidence for hydronephrosis. Posterior bladder wall thickening or dependent debris. Chronic systolic congestive heart failure BNP on admission was significantly elevated. Echocardiogram shows systolic function severely reduced, ejection fraction 15- 20%. ACS evaluation negative Cardiology consulted and made recommendations, nonischemic cardiomyopathy. Okay to discharge from cardiology standpoint Nuclear stress test showing ventriculomegaly with large fixed perfusion abnormality and no evidence of stress-induced reversible abnormalities. Severe global hypokinesia with 14% ejection fraction. Continue Medications: Lasix 20 mg po daily KCL 10meq po daily Aspirin 81mg daily Lisinopril 5 mg po daily Coreg 3.125 mg po q12h Patient increasingly short of breath on 08/12. O2 saturation previously normal on room air but decreased to 90%, upper 80's per nurse requiring O2. Chest x- ray 08/12 with moderate congestion bilaterally, small R pleural effusion. Patient received 80 mg IV Lasix and 40 mEq po KCl on 08/12. Strict I & O, po fluid restriction. Duonebs and oxygen prn. Patient's breathing improved today but still requiring oxygen. Diminished breath sounds on exam but fewer crackles. New chest x-ray today personally interpreted with no significant change from yesterday's film. Discussed with Dr. Concepcion. Switch po Lasix to 20 mg IV daily for 3 days. MILLER: BUN/Cr 30/1.40 attributed to large dose of IV Lasix yesterday. -Monitor BMP. Diabetes: BGL 181 this morning. Hemoglobin A1c 8.6. Continue Accu-Checks with sliding scale insulin telehealth nurse educator consulted and note reviewed. Consider oral hypoglycemics, metformin. I discussed starting metformin with patient, but he states he does not like taking medications stating he was on metformin 1000 mg twice daily in addition to cholesterol and antihypertensive medications in the past. He was informed of the risks of not controlling his diabetes. I will hold off on starting metformin at this point due to impaired renal function and patient's lack of desire to start treatment. 1800 ADA diet Polysubstance abuse Patient admits to marijuana, Dilaudid, cocaine, methamphetamine drug use. UDS positive for cocaine and methamphetamine Patient counseled on cessation Malnutrition Prealbumin 9, continue to follow monthly Dietitian following, recommends: diet Glucerna Shakes tid Double Protein w/meals Milk w/Meals Provide one serving of peanut butter and/or cheese w/meals Anxiety: Xanax 0.25mg PRN, Zoloft 50 mg po daily DVT prophylaxis: Lovenox Discharge Planning D/c when antibiotics completed. CM following. Yazmin Patino Aug 13, 2016 12:10
--- NOTE | 2016-08-13 12:12 | HHI.PR ---
Subjective Remarks This report is in ERROR Please disregard this report and all prior copies ! This report is in ERROR Please disregard this report and all prior copies ! This report is in ERROR Please disregard this report and all prior copies ! Objective Vitals Vital Signs Date Time Temp Pulse Resp B/P Pulse Ox O2 Delivery O2 Flow Rate FiO2 08/13/16 08:00 96.4 73 20 118/87 93 08/13/16 07:20 66 118/64 08/12/16 20:45 99 Nasal Cannula 2.00 08/12/16 20:00 95.8 82 18 127/94 99 08/12/16 14:46 16 I/O 08/12/16 08/12/16 08/12/16 08/13/16 08/13/16 08/13/16 07:00 15:00 23:00 07:00 15:00 23:00 Intake Total 120 ml 350 ml 150 ml Output Total 200 ml 700 ml Balance 120 ml 150 ml -550 ml Intake Oral 120 ml 350 ml 150 ml Output Urine Total 200 ml 700 ml # Voids 3 1 2 # Bowel Movements 0 1 0 Result Diagram: 08/13/16 0725 Objective Remarks GENERAL: Well-nourished, well developed patient no apparent distress. SKIN: Warm and dry. HEAD: Atraumatic. Normocephalic. CARDIOVASCULAR: Regular rate and rhythm. RESPIRATORY: No accessory muscle use. Crackles predominantly over the right lower lobe. Nasal cannula in place. Patient appears relaxed. GASTROINTESTINAL: Abdomen soft, non-tender, nondistended. MUSCULOSKELETAL: No lower extremity edema bilaterally. NEUROLOGICAL: Awake and alert. Motor grossly within normal limits. Normal speech. PSYCHIATRIC: Appropriate mood and affect; insight and judgment normal. A/P Assessment and Plan Bacteremia, MSSA Patient high risk due to IV drug use, previous spine osteomyelitis, possible endocarditis, spine hardware infection status post removal. Echocardiogram was performed which did not indicate any abnormalities or vegetations Blood cultures with one set positive with staph coag negative, negative cultures since 07/23/16 Infectious disease was consulted and followed the patient with recommendations to include: Daptomycin with stop date 09/03/16 CBC, CMP, CPK level weekly On-call infectious disease consult the last week of treatment. Recommend MRI of spine to see status of fluid collections prior to discharge. Pain control; need to continue to adjust every 5-7 days until off pain medicine prior to discharge Tylenol 650 mg every 4 hours as needed for pain 15 Oxycodone 5 mg every 6 hours as needed for pain /, adjusted last on . Left wrist abscesses, likely from IV drug use I&D was performed Cultures 07/23 indicates MRSA Fungal cultures negative History of previous back surgery Status post removal of hardware secondary to previous MSSA infection MRI of the spine indicates elongated fluid collections in the posterior paraspinous soft tissue on the right and left without MRI features convincing for abscess these are presumed seromas and or old hematomas. No evidence of osteomyelitis Urinary tract infection Staph aureus on 07/21; possible translocation from staph bacteremia Acute renal failure superimposed on chronic kidney disease stage III Likely secondary to diuresis, vancomycin Renal functions have returned to baseline Nephrology consulted: appreciate recommendations. Renal US unremarkable: no evidence for hydronephrosis. Posterior bladder wall thickening or dependent debris. Chronic systolic congestive heart failure BNP on admission was significantly elevated. Echocardiogram shows systolic function severely reduced, ejection fraction 15- 20%. ACS evaluation negative Cardiology consulted and made recommendations, nonischemic cardiomyopathy. Okay to discharge from cardiology standpoint Nuclear stress test showing ventriculomegaly with large fixed perfusion abnormality and no evidence of stress-induced reversible abnormalities. Severe global hypokinesia with 14% ejection fraction. Continue Medications: Lasix 20 mg po daily KCL 10meq po daily Aspirin 81mg daily Lisinopril 5 mg po daily Coreg 3.125 mg po q12h Patient increasingly short of breath today. O2 saturation previously normal on room air but decreased to 90%, upper 80's per nurse this morning requiring O2. Previous chest x-ray 08/05/16 with pulmonary vascular congestion and increased pleural effusion on the right. New chest x-ray today personally interpreted with moderate congestion bilaterally, small R pleural effusion. Discussed with Dr. Sequoyah. 80 mg IV Lasix now. Additional 40 mEq po KCl now with BMP in the am. Strict I & O. PO fluid restriction. Duonebs and oxygen prn. Repeat chest x-ray in the am. Patient was reassessed in the afternoon with Dr. Riddle. Bibasilar crackles on exam. He is feeling better and states he has had good urine output. Diabetes: BGL 288 this morning, but 97 after 5 units SSI. Hemoglobin A1c 8.6. Continue Accu-Checks with sliding scale insulin nurses educator consulted Consider oral hypoglycemics, metformin. 1800 ADA diet Polysubstance abuse Patient admits to marijuana, Dilaudid, cocaine, methamphetamine drug use. UDS positive for cocaine and methamphetamine Patient counseled on cessation Malnutrition Prealbumin 9, continue to follow monthly Consult dietary for recommendations Add nutritional supplement to each meal Anxiety: Xanax 0.25mg PRN, Zoloft 50 mg po daily DVT prophylaxis: Yazmin Dove Aug 13, 2016 12:12
[2016-08-13 17:04] VITALS: O2SAT 96
[2016-08-13] MEDS: RESP: ALBUTEROL 2.5 MG/IPRATROPIUM 0.5 MG NEB (PRN) NEB (17:04)
[2016-08-13 20:00] VITALS: BP 122/91; PULSE 84; RESP 18; TEMP 97.7; O2SAT 99
[2016-08-14 05:51] LABS: POTASSIUM 4.1 MEQ/L (3.5-5.1)
[2016-08-14 05:55] LABS: BICARBONATE 31.2 MEQ/L (21.0-32.0)
[2016-08-14] MEDS: INSULIN ASPART SUPPLEMENTAL SCALE SQ SCH ×4 (06:35→20:19)
[2016-08-14] MEDS: CARVEDILOL 3.125 MG TAB PO SCH ×2 (09:00→20:14)
[2016-08-14] MEDS: SODIUM CHLORIDE 0.9% FLUSH 5 ML FLUSH FLUSH SCH ×2 (09:00→20:13)
[2016-08-14] MEDS: LISINOPRIL 5 MG TAB PO SCH ×2 (09:00→12:51)
[2016-08-14] MEDS: FUROSEMIDE 20 MG/2 ML VIAL IV PUSH SCH ×2 (09:00→12:51)
[2016-08-14 09:12] VITALS: BP 111/70; PULSE 83; RESP 16; TEMP 97.2; O2SAT 93
[2016-08-14] MEDS: POTASSIUM CHLORIDE 10 MEQ CONTROLLED RELEASE TAB PO SCH (09:23)
[2016-08-14] MEDS: SERTRALINE HCL 50 MG TAB PO SCH (09:23)
[2016-08-14] MEDS: ASPIRIN EC 81 MG TABEC PO SCH (09:23)
[2016-08-14] MEDS: ENOXAPARIN SODIUM 40 MG/0.4 ML SYRINGE SQ SCH (11:22)
[2016-08-14 11:27] VITALS: BP 123/84; PULSE 87; RESP 16; TEMP 96.6; O2SAT 98
[2016-08-14 11:30] VITALS: O2SAT 98
[2016-08-14] MEDS: DAPTOMYCIN IV SCH (11:47)
[2016-08-14] MEDS: SODIUM CHLORIDE 0.9% IV SCH (11:47)
--- NOTE | 2016-08-14 12:28 | HHI.PR ---
Subjective Remarks Follow-up for CHF exacerbation, bacteremia. Denies any difficulty breathing ( on O2 via NC). Denies any chest pain. Objective Vitals Vital Signs Date Time Temp Pulse Resp B/P Pulse Ox O2 Delivery O2 Flow Rate FiO2 08/14/16 11:27 96.6 87 16 123/84 98 08/14/16 09:12 97.2 83 16 111/70 93 08/13/16 22:41 Nasal Cannula 2.00 08/13/16 20:00 97.7 84 18 122/91 99 08/13/16 17:04 96 Nasal Cannula 2.00 I/O 08/13/16 08/13/16 08/13/16 08/14/16 08/14/16 08/14/16 06:59 14:59 22:59 06:59 14:59 22:59 Intake Total 150 ml 810 ml 1080 ml 120 ml 20 ml Output Total 700 ml 1150 ml 1300 ml 400 ml Balance -550 ml -340 ml -220 ml -280 ml 20 ml Intake Oral 150 ml 810 ml 1080 ml 120 ml 20 ml Output Urine Total 700 ml 1150 ml 1300 ml 400 ml # Voids 2 # Bowel Movements 0 2 0 Result Diagram: 08/14/16 0525 Objective Remarks GENERAL: Well-nourished, well developed patient no apparent distress. CARDIOVASCULAR: Regular rate and rhythm. No murmurs. RESPIRATORY: No accessory muscle use. CTAB but slightly diminished at bases. Nasal cannula in place. GASTROINTESTINAL: Abdomen soft, nontender, nondistended. MUSCULOSKELETAL: No lower extremity edema bilaterally. NEUROLOGICAL: Awake and alert. Motor grossly within normal limits. Normal speech. PSYCHIATRIC: Appropriate mood and affect; insight and judgment normal. Urinary Catheter: No Vascular Central Line Catheter: No A/P Assessment and Plan Bacteremia, MSSA Patient high risk due to IV drug use, previous spine osteomyelitis, possible endocarditis, spine hardware infection status post removal. Echocardiogram was performed which did not indicate any abnormalities or vegetations Blood cultures with one set positive with staph coag negative, negative cultures since 07/23/16 Infectious disease was consulted and followed the patient with recommendations to include: Daptomycin with stop date 09/03/16 CBC, CMP, CPK level weekly, next labs ordered for 08/15/16. On-call infectious disease consult the last week of treatment. Recommend MRI of spine to see status of fluid collections prior to discharge. Pain control; need to continue to adjust every 5-7 days until off pain medicine prior to discharge Tylenol 650 mg every 4 hours as needed for pain 15 Oxycodone 5 mg every 6 hours as needed for pain /10, adjusted last on . Left wrist abscesses, likely from IV drug use I&D was performed Cultures 07/23 indicates MRSA Fungal cultures negative History of previous back surgery Status post removal of hardware secondary to previous MSSA infection MRI of the spine indicates elongated fluid collections in the posterior paraspinous soft tissue on the right and left without MRI features convincing for abscess these are presumed seromas and or old hematomas. No evidence of osteomyelitis Urinary tract infection Staph aureus on 07/21; possible translocation from staph bacteremia Acute renal failure superimposed on chronic kidney disease stage III Likely secondary to diuresis, vancomycin Nephrology consulted: appreciate recommendations. Renal US unremarkable: no evidence for hydronephrosis. Posterior bladder wall thickening or dependent debris. MILLER again on 08/13 due to diuresis. BUN/Cr 30/1.40 improved today at 29/1.20. Chronic systolic congestive heart failure BNP on admission was significantly elevated. Echocardiogram shows systolic function severely reduced, ejection fraction 15- 20%. ACS evaluation negative Cardiology consulted and made recommendations, nonischemic cardiomyopathy. Okay to discharge from cardiology standpoint Nuclear stress test showing ventriculomegaly with large fixed perfusion abnormality and no evidence of stress-induced reversible abnormalities. Severe global hypokinesia with 14% ejection fraction. Continue Medications: Lasix 20 mg po daily KCL 10meq po daily Aspirin 81mg daily Lisinopril 5 mg po daily Coreg 3.125 mg po q12h Patient increasingly short of breath on 08/12. O2 saturation previously normal on room air but decreased to 90%, upper 80's per nurse requiring O2. Chest x- ray 08/12 with moderate congestion bilaterally, small R pleural effusion. Patient received 80 mg IV Lasix and 40 mEq po KCl on 08/12. Chest x-ray 08/13 with no significant change from prior. Strict I & O, po fluid restriction. Duonebs and oxygen prn. Patient's breathing improved but still requiring oxygen. Diminished breath sounds on exam but fewer crackles. Discussed with Dr. Concepcion. Switch po Lasix to 20 mg IV daily for 3 days. Patient was hypotensive this morning and Lasix, Lisinopril, Coreg were held, but BP improved [id number] and nurse was instructed to continue Lasix and lisinopril and resume Coreg tonight. Diabetes: BGL 146 this morning. Hemoglobin A1c 8.6. Continue Accu-Checks with sliding scale insulin health educator consulted and note reviewed. Consider oral hypoglycemics, metformin. I discussed starting metformin with patient, but he states he does not like taking medications stating he was on metformin 1000 mg twice daily in addition to cholesterol and antihypertensive medications in the past. He was informed of the risks of not controlling his diabetes. I will hold off on starting metformin at this point due to patient's lack of desire to start treatment. 1800 ADA diet Polysubstance abuse Patient admits to marijuana, Dilaudid, cocaine, methamphetamine drug use. UDS positive for cocaine and methamphetamine Patient counseled on cessation Malnutrition Prealbumin 9, continue to follow monthly Dietitian following, recommends: diet Glucerna Shakes tid Double Protein w/meals Milk w/Meals Provide one serving of peanut butter and/or cheese w/meals Anxiety: Xanax 0.25mg PRN, Zoloft 50 mg po daily DVT prophylaxis: Lovenox Discharge Planning D/c when antibiotics completed. CM following. Yazmin Patino Aug 14, 2016 12:28
[2016-08-14 20:00] VITALS: BP 126/84; PULSE 92; RESP 22; TEMP 98; O2SAT 98
[2016-08-14 22:30] VITALS: O2SAT 98
[2016-08-15] MEDS: INSULIN ASPART SUPPLEMENTAL SCALE SQ SCH ×4 (06:12→21:00)
[2016-08-15 07:23] LABS: AUTOMATED NEUTROPHIL # 3.8 TH/MM3 (1.8-7.7); BASOPHIL % 0.6 % (0.0-2.0); EOSINOPHIL # 0.2 TH/MM3 (0-0.4); EOSINOPHIL % 2.2 % (0.0-4.0); HEMATOCRIT 43.5 % (39.0-51.0); HEMO FLAGS DIFF FINAL; LYMPH % 31.5 % (9.0-44.0); LYMPHOCYTE # 2.2 TH/MM3 (1.0-4.8); MEAN CELL VOLUME 86.3 FL (80.0-100.0); MEAN CORPUSCULAR HEMOGLOBIN 27.6 PG (27.0-34.0); MONO % 10.1 % (0.0-8.0); NEUT % 55.6 % (16.0-70.0); PLATELET COUNT 276 TH/MM3 (150-450); RED BLOOD COUNT 5.04 MIL/MM3 (4.50-5.90); RED CELL DISTRIBUTION WIDTH 15.2 % (11.6-17.2); WHITE BLOOD COUNT 6.9 TH/MM3 (4.0-11.0)
[2016-08-15 07:34] LABS: CHLORIDE 102 MEQ/L (98-107); POTASSIUM 4.1 MEQ/L (3.5-5.1); SODIUM (NA) 140 MEQ/L (136-145)
[2016-08-15 07:38] LABS: ANION GAP 8 MEQ/L (5-15); BICARBONATE 29.8 MEQ/L (21.0-32.0)
[2016-08-15 07:39] LABS: BLOOD UREA NITROGEN 22 MG/DL (7-18)
[2016-08-15 07:41] LABS: ALT (GPT) 22 U/L (12-78); AST (GOT) 21 U/L (15-37)
[2016-08-15 07:42] LABS: GLOMERULAR FILTRATION RATE 74 ML/MIN (>89)
[2016-08-15 07:43] LABS: TOTAL BILIRUBIN ADULT 0.6 MG/DL (0.2-1.0)
[2016-08-15 07:44] LABS: ALKALINE PHOSPHATASE 159 U/L (45-117)
[2016-08-15] MEDS: CARVEDILOL 3.125 MG TAB PO SCH ×2 (08:42→21:14)
[2016-08-15] MEDS: LISINOPRIL 5 MG TAB PO SCH (08:42)
[2016-08-15] MEDS: SERTRALINE HCL 50 MG TAB PO SCH (08:42)
[2016-08-15] MEDS: POTASSIUM CHLORIDE 10 MEQ CONTROLLED RELEASE TAB PO SCH (08:42)
[2016-08-15] MEDS: ASPIRIN EC 81 MG TABEC PO SCH (08:42)
[2016-08-15 08:50] VITALS: BP 133/94; PULSE 83; RESP 16; TEMP 96.5; O2SAT 98
--- NOTE | 2016-08-15 09:23 | HHI.PR ---
Subjective Remarks Follow-up for bacteremia, CHF exacerbation. Patient states his breathing is the same. He admits to 01/12 chest pain over the sternum but states he has had this since he was admitted, but it is more bothersome today. He states cp is worse with movement. He states the pain in his low back is constant. Objective Vitals Vital Signs Date Time Temp Pulse Resp B/P Pulse Ox O2 Delivery O2 Flow Rate FiO2 08/15/16 08:50 96.5 83 16 133/94 98 08/14/16 22:30 98 Nasal Cannula 2.00 08/14/16 20:00 98 Nasal Cannula 2.00 Humidified 08/14/16 20:00 98.0 92 22 126/84 98 08/14/16 11:30 98 Nasal Cannula 2.00 08/14/16 11:27 96.6 87 16 123/84 98 I/O 08/14/16 08/14/16 08/14/16 08/15/16 08/15/16 08/15/16 07:00 15:00 23:00 07:00 15:00 23:00 Intake Total 120 ml 20 ml 1620 ml 240 ml 250 ml Output Total 400 ml 400 ml Balance -280 ml 20 ml 1620 ml -160 ml 250 ml Intake Oral 120 ml 20 ml 1620 ml 240 ml 250 ml Output Urine Total 400 ml 400 ml # Voids 2 4 # Bowel Movements 0 0 0 Result Diagram: 08/15/16 0655 08/15/16 0655 Objective Remarks GENERAL: Well-nourished, well developed patient no apparent distress. CARDIOVASCULAR: Regular rate and rhythm. CHEST: Reproducible tenderness over the sternum. RESPIRATORY: No accessory muscle use. Crackles over the left lower lobe and diminished breath sounds at the right base. O2 via nasal cannula. MUSCULOSKELETAL: No lower extremity edema bilaterally. NEUROLOGICAL: Awake and alert. Motor grossly within normal limits. Normal speech. PSYCHIATRIC: Appropriate mood and affect; insight and judgment normal. Urinary Catheter: No Vascular Central Line Catheter: No A/P Assessment and Plan Bacteremia, MSSA Patient high risk due to IV drug use, previous spine osteomyelitis, possible endocarditis, spine hardware infection status post removal. Echocardiogram was performed which did not indicate any abnormalities or vegetations Blood cultures with one set positive with staph coag negative, negative cultures since 07/23/16 Infectious disease was consulted and followed the patient with recommendations to include: Daptomycin with stop date 09/03/16 CBC today reviewed with normal white blood cell count. CRP is improved at 1.5 compared to 2.6 on 07/21. Alkaline phosphatase is improving and transaminases are normal. CBC, CMP, CPK level weekly, next labs ordered for 08/22/16. On-call infectious disease consult the last week of treatment. Recommend MRI of spine to see status of fluid collections prior to discharge. Pain control; need to continue to adjust every 5-7 days until off pain medicine prior to discharge Tylenol 650 mg every 4 hours as needed for pain 15 Oxycodone 5 mg every 6 hours as needed for pain 12/13, adjusted last on . Left wrist abscesses, likely from IV drug use I&D was performed Cultures 07/23 indicates MRSA Fungal cultures negative History of previous back surgery Status post removal of hardware secondary to previous MSSA infection MRI of the spine indicates elongated fluid collections in the posterior paraspinous soft tissue on the right and left without MRI features convincing for abscess these are presumed seromas and or old hematomas. No evidence of osteomyelitis Urinary tract infection Staph aureus on 07/21; possible translocation from staph bacteremia Acute renal failure superimposed on chronic kidney disease stage III Likely secondary to diuresis, vancomycin Nephrology consulted: appreciate recommendations. Renal US unremarkable: no evidence for hydronephrosis. Posterior bladder wall thickening or dependent debris. MILLER again on 08/13 due to diuresis with BUN/Cr 30/1.40. Improved today with BUN/ Cr of 22/1.00. Chronic systolic congestive heart failure BNP on admission was significantly elevated. Echocardiogram shows systolic function severely reduced, ejection fraction 15- 20%. ACS evaluation negative Cardiology consulted and made recommendations, nonischemic cardiomyopathy. Okay to discharge from cardiology standpoint Nuclear stress test showing ventriculomegaly with large fixed perfusion abnormality and no evidence of stress-induced reversible abnormalities. Severe global hypokinesia with 14% ejection fraction. Continue Medications: Lasix 20 mg po daily KCL 10meq po daily Aspirin 81mg daily Lisinopril 5 mg po daily Coreg 3.125 mg po q12h Patient increasingly short of breath on 08/12. O2 saturation previously normal on room air but decreased to 90%, upper 80's per nurse requiring O2. Chest x- ray 08/12 with moderate congestion bilaterally, small R pleural effusion. Patient received 80 mg IV Lasix and 40 mEq po KCl on 08/12. Chest x-ray 08/13 with no significant change from prior. Strict I & O, po fluid restriction. Duonebs and oxygen prn. Discussed with Dr. Concepcion. Switched 20 mg po Lasix to 20 mg IV daily for 3 days. 08/15: Patient states his breathing is the same; he still requires oxygen use. Continue diuresis with IV Lasix through tomorrow. Lung exam is improved. Continue to monitor urine output and BMP. Diabetes: BGL 120 this morning. Hemoglobin A1c 8.6. Continue Accu-Checks with sliding scale insulin religious educator consulted and note reviewed. Consider oral hypoglycemics, metformin. I discussed starting metformin with patient, but he states he does not like taking medications stating he was on metformin 1000 mg twice daily in addition to cholesterol and antihypertensive medications in the past. He was informed of the risks of not controlling his diabetes. I will hold off on starting metformin at this point due to patient's lack of desire to start treatment. 1800 ADA diet Polysubstance abuse Patient admits to marijuana, Dilaudid, cocaine, methamphetamine drug use. UDS positive for cocaine and methamphetamine Patient counseled on cessation Malnutrition Prealbumin 9, continue to follow monthly Dietitian following, recommends: 1999ADA diet Glucerna Shakes tid Double Protein w/meals Milk w/Meals Provide one serving of peanut butter and/or cheese w/meals Anxiety: Xanax 0.25mg PRN, Zoloft 50 mg po daily DVT prophylaxis: Lovenox Discharge Planning D/c when antibiotics completed. CM following. Yazmin Patino Aug 15, 2016 09:23
[2016-08-15] MEDS: FUROSEMIDE 20 MG/2 ML VIAL IV PUSH SCH (10:11)
[2016-08-15] MEDS: SODIUM CHLORIDE 0.9% FLUSH 5 ML FLUSH FLUSH SCH ×2 (10:13→21:14)
[2016-08-15 11:00] VITALS: O2SAT 98
[2016-08-15] MEDS: ENOXAPARIN SODIUM 40 MG/0.4 ML SYRINGE SQ SCH (11:29)
[2016-08-15] MEDS: SODIUM CHLORIDE 0.9% IV SCH (14:10)
[2016-08-15] MEDS: DAPTOMYCIN IV SCH (14:10)
[2016-08-15 20:00] VITALS: BP 120/89; PULSE 84; RESP 16; TEMP 98.1; O2SAT 98
[2016-08-16] MEDS: INSULIN ASPART SUPPLEMENTAL SCALE SQ SCH ×4 (06:08→20:58)
[2016-08-16] MEDS: FUROSEMIDE 20 MG/2 ML VIAL IV PUSH SCH (07:45)
[2016-08-16] MEDS: POTASSIUM CHLORIDE 10 MEQ CONTROLLED RELEASE TAB PO SCH (07:45)
[2016-08-16] MEDS: SERTRALINE HCL 50 MG TAB PO SCH (07:45)
[2016-08-16] MEDS: ALPRAZolam 0.25 MG TAB PO PRN ×2 (07:46→16:23)
[2016-08-16] MEDS: ASPIRIN EC 81 MG TABEC PO SCH (07:46)
[2016-08-16] MEDS: LISINOPRIL 5 MG TAB PO SCH (07:46)
[2016-08-16] MEDS: CARVEDILOL 3.125 MG TAB PO SCH ×2 (07:46→20:57)
[2016-08-16] MEDS: SODIUM CHLORIDE 0.9% FLUSH 5 ML FLUSH FLUSH SCH ×2 (07:47→20:57)
[2016-08-16 08:00] VITALS: BP 119/90; PULSE 87; RESP 18; TEMP 97.4; O2SAT 99
[2016-08-16 08:18] LABS: POTASSIUM 4.5 MEQ/L (3.5-5.1)
[2016-08-16 08:21] LABS: BICARBONATE 28.3 MEQ/L (21.0-32.0)
--- NOTE | 2016-08-16 09:36 | HHI.PR ---
Subjective Remarks Follow-up for bacteremia, CHF exacerbation. Patient states he has some difficulty breathing this morning but is breathing better now. He admits to back pain. Objective Vitals Vital Signs Date Time Temp Pulse Resp B/P Pulse Ox O2 Delivery O2 Flow Rate FiO2 08/16/16 08:00 98 Nasal Cannula 2.00 08/16/16 00:15 Nasal Cannula 2.00 08/15/16 20:00 98.1 84 16 120/89 98 08/15/16 20:00 98 Nasal Cannula 2.00 08/15/16 11:00 98 Nasal Cannula 2.00 I/O 08/15/16 08/15/16 08/15/16 08/16/16 08/16/16 08/16/16 07:00 15:00 23:00 07:00 15:00 23:00 Intake Total 240 ml 250 ml 240 ml Output Total 400 ml 1300 ml 500 ml 650 ml 300 ml Balance -160 ml -1050 ml -500 ml -410 ml -300 ml Intake Oral 240 ml 250 ml 240 ml Output Urine Total 400 ml 1300 ml 500 ml 650 ml 300 ml # Bowel Movements 0 Result Diagram: 08/15/16 0655 08/16/16 0805 Objective Remarks GENERAL: Well-nourished, well developed patient no apparent distress. CARDIOVASCULAR: Regular rate and rhythm. RESPIRATORY: No accessory muscle use. Crackles over the left base and diminished breath sounds over the right lower lobe, same. O2 via nasal cannula. GASTROINTESTINAL: Abdomen soft, nontender, nondistended. MUSCULOSKELETAL: No lower extremity edema bilaterally. NEUROLOGICAL: Awake and alert. Motor grossly within normal limits. Normal speech. PSYCHIATRIC: Appropriate mood and affect; insight and judgment normal. Urinary Catheter: No Vascular Central Line Catheter: No A/P Assessment and Plan Bacteremia, MSSA Patient high risk due to IV drug use, previous spine osteomyelitis, possible endocarditis, spine hardware infection status post removal. Echocardiogram was performed which did not indicate any abnormalities or vegetations Blood cultures with one set positive with staph coag negative, negative cultures since 07/23/16 Infectious disease was consulted and followed the patient with recommendations to include: Daptomycin with stop date 09/03/16 Labs improved on 08/15. CBC, CMP, CPK level weekly, next labs ordered for 08/22/16. On-call infectious disease consult the last week of treatment. Recommend MRI of spine to see status of fluid collections prior to discharge. Pain control; need to continue to adjust every 5-7 days until off pain medicine prior to discharge Tylenol 650 mg every 4 hours as needed for pain 15 Oxycodone 5 mg every 6 hours as needed for pain 12/13 adjusted today to every 8 hours prn; will likely be able to change to every 12 hours very soon as patient has not been using at current frequency. Left wrist abscesses, likely from IV drug use I&D was performed Cultures 07/23 indicates MRSA Fungal cultures negative History of previous back surgery Status post removal of hardware secondary to previous MSSA infection MRI of the spine indicates elongated fluid collections in the posterior paraspinous soft tissue on the right and left without MRI features convincing for abscess these are presumed seromas and or old hematomas. No evidence of osteomyelitis Urinary tract infection Staph aureus on 07/21; possible translocation from staph bacteremia Acute renal failure superimposed on chronic kidney disease stage III Likely secondary to diuresis, vancomycin Nephrology consulted: appreciate recommendations. Renal US unremarkable: no evidence for hydronephrosis. Posterior bladder wall thickening or dependent debris. MILLER again on 08/13 due to diuresis but improved today with BUN/Cr of 26/0.96. Electrolytes normal. Chronic systolic congestive heart failure BNP on admission was significantly elevated. Echocardiogram shows systolic function severely reduced, ejection fraction 15- 20%. ACS evaluation negative Cardiology consulted and made recommendations, nonischemic cardiomyopathy. Okay to discharge from cardiology standpoint Nuclear stress test showing ventriculomegaly with large fixed perfusion abnormality and no evidence of stress-induced reversible abnormalities. Severe global hypokinesia with 14% ejection fraction. Continue Medications: Lasix 20 mg po daily KCL 10meq po daily Aspirin 81mg daily Lisinopril 5 mg po daily Coreg 3.125 mg po q12h Exacerbation started on 08/12. O2 saturation decreased requiring O2 via NC. Chest x-ray 08/12 with moderate congestion bilaterally, small R pleural effusion. Patient received 80 mg IV Lasix and 40 mEq po KCl on 08/12. Chest x-ray 08/13 with no significant change from prior. Strict I & O, po fluid restriction. Duonebs and oxygen prn. Discussed with Dr. Concepcion. Switched 20 mg po Lasix to 20 mg IV daily for 3 days, last IV Lasix dose today then will resume po tomorrow. 08/16: Patient states his breathing is better than this morning; he still requires oxygen use. Lung exam with crackles over L base and diminished breath sounds over R base due to effusion, same as yesterday. Patient has had good urine output. Diabetes: BGL 134 this morning. Hemoglobin A1c 8.6. Continue Accu-Checks with sliding scale insulin needle setter consulted and note reviewed. Consider oral hypoglycemics, metformin. I discussed starting metformin with patient, but he states he does not like taking medications stating he was on metformin 1000 mg twice daily in addition to cholesterol and antihypertensive medications in the past. He was informed of the risks of not controlling his diabetes. I will hold off on starting metformin at this point due to patient's lack of desire to start treatment. 1800 ADA diet Polysubstance abuse Patient admits to marijuana, Dilaudid, cocaine, methamphetamine drug use. UDS positive for cocaine and methamphetamine Patient counseled on cessation Malnutrition Prealbumin 9, continue to follow monthly Dietitian following, recommends: 2000ADA diet Glucerna Shakes tid Double Protein w/meals Milk w/Meals Provide one serving of peanut butter and/or cheese w/meals Anxiety: Xanax 0.25mg PRN, Zoloft 50 mg po daily DVT prophylaxis: Lovenox Discharge Planning D/c when antibiotics completed. CM following. Yazmin Patino Aug 16, 2016 09:36
[2016-08-16 10:20] VITALS: O2SAT 93
[2016-08-16] MEDS: SODIUM CHLORIDE 0.9% IV SCH (11:09)
[2016-08-16] MEDS: DAPTOMYCIN IV SCH (11:09)
[2016-08-16] MEDS: ENOXAPARIN SODIUM 40 MG/0.4 ML SYRINGE SQ SCH (11:10)
[2016-08-16] MEDS: RESP: ALBUTEROL 2.5 MG/IPRATROPIUM 0.5 MG NEB (PRN) NEB (16:30)
[2016-08-16 20:00] VITALS: BP 111/78; PULSE 81; RESP 18; TEMP 96.5; O2SAT 98
[2016-08-16 20:40] VITALS: O2SAT 98
[2016-08-17] MEDS: INSULIN ASPART SUPPLEMENTAL SCALE SQ SCH ×4 (06:12→21:00)
[2016-08-17 08:00] VITALS: BP 127/97; PULSE 76; RESP 20; TEMP 97.7; O2SAT 94
--- NOTE | 2016-08-17 08:28 | HHI.PR ---
Subjective Remarks Follow-up for bacteremia, CHF exacerbation. Patient states he is breathing better today. He is not wearing his oxygen when I enter the room. He complains about the fluid restrictions. He also states he would like to walk outside, but I informed the patient he is on isolation. Objective Vitals Vital Signs Date Time Temp Pulse Resp B/P Pulse Ox O2 Delivery O2 Flow Rate FiO2 08/17/16 08:00 97.7 76 20 127/97 94 08/16/16 20:40 98 21 08/16/16 20:00 96.5 81 18 111/78 98 08/16/16 20:00 98 Nasal Cannula 2.00 08/16/16 17:23 20 08/16/16 10:20 93 21 08/16/16 08:46 20 I/O 08/16/16 08/16/16 08/16/16 08/17/16 08/17/16 08/17/16 07:00 15:00 23:00 07:00 15:00 23:00 Intake Total 240 ml 1000 ml 240 ml 60 ml Output Total 650 ml 3000 ml 650 ml 850 ml Balance -410 ml -2000 ml -410 ml -790 ml Intake Oral 240 ml 1000 ml 240 ml 60 ml Output Urine Total 650 ml 3000 ml 650 ml 850 ml # Bowel Movements 0 0 Result Diagram: 08/15/16 0655 08/16/16 0805 Imaging Last Impressions Chest X-Ray 08/13/16 0600 Signed Impressions: Service Date/Time: Saturday, August 13, 2016 06:21 - CONCLUSION: No significant change has occurred. Duglas Celis MD Liver Ultrasound 08/02/16 0000 Signed Impressions: Service Date/Time: Tuesday, August 02, 2016 08:13 - CONCLUSION: 1. The liver is heterogeneous and mildly lobular suggestive of hepatocellular disease such as cirrhosis. 2. There is a trace of fluid adjacent to the liver.. 3. The pancreas was not visualized. Robert Johnson MD Renal Ultrasound 07/31/16 1517 Signed Impressions: Service Date/Time: July 20:19 - CONCLUSION: No evidence of hydronephrosis. Posterior bladder wall thickening or dependent debris. Ascites. Kwesi Coleman MD Abscess Drainage X-Ray 07/26/16 0000 Signed Impressions: Service Date/Time: Tuesday, July 26, 2016 16:35 - CONCLUSION: Uncomplicated aspiration of complex fluid collections in the lower back bilaterally as detailed above. Nikos Kaur MD Soft Tissue Ultrasound 07/25/16 1834 Signed Impressions: Service Date/Time: Monday, July 25, 2016 23:13 - CONCLUSION: In the parasagittal lower back, deep to the subcutaneous tissues, there are bilateral mixed cystic and solid lesion which measure up to 6 cm in size. Kalyan Hayes MD Myocardial Perfusion Scan Nuc Med 07/25/16 0000 Signed Impressions: Service Date/Time: Monday, July 25, 2016 10:43 - CONCLUSION: Ventriculomegaly with large fixed perfusion abnormality and no evidence of stress-induced reversible abnormalities. Severe global hypokinesia with 14%% ejection fraction. RISK CATEGORY: High (>3%% Annual Mortality Rate) Brown Tejeda MD Lumbar Spine MRI 07/24/16 0000 Signed Impressions: Service Date/Time: July 18:25 - CONCLUSION: 1. Previous surgery at L4/L5 and L5/S1 with subsequent hardware removal. There are elongated fluid collections in the posterior paraspinous soft tissues on the right and left without MRI features convincing for abscess. These are presumably seromas or old hematomas. Also no evidence of osteomyelitis.. 2. Normal thecal sac and epidural space. 3. No foraminal or spinal stenosis at any level. 4. Mild bilateral facet osteoarthritis and nonspecific synovitis at L3/L4. Kwesi Hinojosa MD Abdomen/Pelvis CT 07/23/16 0000 Signed Impressions: Service Date/Time: Saturday, July 23, 2016 17:42 - CONCLUSION: 1. Diverticulosis without diverticulitis. 2. Minimal ascites. 3. Dilated stomach. 4. A few punctate of second bilateral renal calculi. 5. Small bilateral pleural effusions. 6. No abscess seen. James Wyatt MD CT Angiography 07/21/16 0000 Signed Impressions: Service Date/Time: Thursday, July 21, 2016 11:06 - CONCLUSION: 1. No evidence of pulmonary embolism. 2. Bilateral effusions and left basilar atelectasis Amos Toledo MD Objective Remarks GENERAL: Well-nourished, well developed patient no apparent distress sleeping when I enter the room. CARDIOVASCULAR: Regular rate and rhythm. RESPIRATORY: No accessory muscle use. Mild crackles over the left lower lobe and diminished breath sounds over the right lower lobe, same. Oxygen saturation 97% on RA. GASTROINTESTINAL: Abdomen soft, nontender, nondistended. NEUROLOGICAL: Awake and alert. Motor grossly within normal limits. Normal speech. PSYCHIATRIC: Appropriate mood and affect. Urinary Catheter: No Vascular Central Line Catheter: No A/P Assessment and Plan Bacteremia, MSSA Patient high risk due to IV drug use, previous spine osteomyelitis, possible endocarditis, spine hardware infection status post removal. Echocardiogram was performed which did not indicate any abnormalities or vegetations Blood cultures with one set positive with staph coag negative, negative cultures since 07/23/16 Infectious disease was consulted and followed the patient with recommendations to include: Daptomycin with stop date 09/03/16 Labs improved on 08/15. CBC, CMP, CPK level weekly, next labs ordered for 08/22/16. On-call infectious disease consult the last week of treatment. Recommend MRI of spine to see status of fluid collections prior to discharge. Pain control; need to continue to adjust every 5-7 days until off pain medicine prior to discharge Tylenol 650 mg every 4 hours as needed for pain 1-5 Oxycodone 5 mg every 8 hours as needed for pain 6-10 (adjusted 08/16) Left wrist abscesses, likely from IV drug use I&D was performed Cultures 07/23 indicates MRSA Fungal cultures negative History of previous back surgery Status post removal of hardware secondary to previous MSSA infection MRI of the spine indicates elongated fluid collections in the posterior paraspinous soft tissue on the right and left without MRI features convincing for abscess these are presumed seromas and or old hematomas. No evidence of osteomyelitis Urinary tract infection Staph aureus on 07/21; possible translocation from staph bacteremia Acute renal failure superimposed on chronic kidney disease stage III Likely secondary to diuresis, vancomycin Nephrology consulted: appreciate recommendations. Renal US unremarkable: no evidence for hydronephrosis. Posterior bladder wall thickening or dependent debris. MILLER again on 08/13 due to diuresis but improved. BUN/Cr 27/1.00 on BMP reviewed today. Chronic systolic congestive heart failure BNP on admission was significantly elevated. Echocardiogram shows systolic function severely reduced, ejection fraction 15- 20%. ACS evaluation negative Cardiology consulted and made recommendations, nonischemic cardiomyopathy. Okay to discharge from cardiology standpoint Nuclear stress test showing ventriculomegaly with large fixed perfusion abnormality and no evidence of stress-induced reversible abnormalities. Severe global hypokinesia with 14% ejection fraction. Continue Medications: Lasix 20 mg po daily KCL 10meq po daily Aspirin 81mg daily Lisinopril 5 mg po daily Coreg 3.125 mg po q12h Exacerbation started on 08/12. O2 saturation decreased requiring O2 via NC. Chest x-ray 08/12 with moderate congestion bilaterally, small R pleural effusion. Patient received 80 mg IV Lasix and 40 mEq po KCl on 08/12. Chest x-ray 08/13 with no significant change from prior. Strict I & O, po fluid restriction. Duonebs and oxygen prn. Switched 20 mg po Lasix to 20 mg IV daily for 3 days, last IV Lasix dose on . Resume daily po Lasix today. 08/17: Patient states his breathing is better. Lung exam with crackles over L base and diminished breath sounds over R base due to effusion, same as yesterday. Patient has had significant urine output 4500 mL in the last 24 hours. O2 now 97% on RA. RT order for pulse oximetry checks q4h. Patient c/o fluid restrictions. He likely feels dehydrated due to heavy diuresis (in negative fluid balance). Likely will improve now that the IV Lasix has been discontinued. PT eval as patient is likely deconditioned. Diabetes: [id number] this morning. Hemoglobin A1c 8.6. Continue Accu-Checks with sliding scale insulin community health educator consulted and note reviewed. Consider oral hypoglycemics, metformin. I discussed starting metformin with patient, but he states he does not like taking medications stating he was on metformin 1000 mg twice daily in addition to cholesterol and antihypertensive medications in the past. He was informed of the risks of not controlling his diabetes. I will hold off on starting metformin at this point due to patient's lack of desire to start treatment. 1800 ADA diet Polysubstance abuse Patient admits to marijuana, Dilaudid, cocaine, methamphetamine drug use. UDS positive for cocaine and methamphetamine Patient counseled on cessation Malnutrition Prealbumin 9, continue to follow monthly Dietitian following, recommends: diet Glucerna Shakes tid Double Protein w/meals Milk w/Meals Provide one serving of peanut butter and/or cheese w/meals Anxiety: Xanax 0.25mg PRN, Zoloft 50 mg po daily DVT prophylaxis: Lovenox Discharge Planning D/c when antibiotics completed. CM following. Yazmin Patino Aug 17, 2016 08:28
[2016-08-17] MEDS: SERTRALINE HCL 50 MG TAB PO SCH (09:07)
[2016-08-17] MEDS: ASPIRIN EC 81 MG TABEC PO SCH (09:07)
[2016-08-17] MEDS: LISINOPRIL 5 MG TAB PO SCH (09:07)
[2016-08-17] MEDS: POTASSIUM CHLORIDE 10 MEQ CONTROLLED RELEASE TAB PO SCH (09:07)
[2016-08-17] MEDS: CARVEDILOL 3.125 MG TAB PO SCH ×2 (09:07→21:00)
[2016-08-17] MEDS: SODIUM CHLORIDE 0.9% FLUSH 5 ML FLUSH FLUSH SCH ×2 (09:08→21:14)
[2016-08-17] MEDS: FUROSEMIDE 20 MG TAB PO SCH (09:11)
[2016-08-17 09:45] VITALS: O2SAT 98
[2016-08-17 10:19] LABS: POTASSIUM 3.9 MEQ/L (3.5-5.1)
[2016-08-17 10:22] LABS: BICARBONATE 30.1 MEQ/L (21.0-32.0)
[2016-08-17 10:53] VITALS: BP 125/95; PULSE 100; RESP 20; TEMP 98; O2SAT 95
[2016-08-17] MEDS: ENOXAPARIN SODIUM 40 MG/0.4 ML SYRINGE SQ SCH (12:00)
[2016-08-17] MEDS: ALPRAZolam 0.25 MG TAB PO PRN ×2 (12:00→20:05)
[2016-08-17] MEDS: DAPTOMYCIN IV SCH (12:23)
[2016-08-17] MEDS: SODIUM CHLORIDE 0.9% IV SCH (12:23)
[2016-08-17 20:00] VITALS: BP 118/89; PULSE 86; RESP 20; TEMP 98.7; O2SAT 96
[2016-08-17 20:55] VITALS: O2SAT 98
[2016-08-18] MEDS: INSULIN ASPART SUPPLEMENTAL SCALE SQ SCH ×4 (06:22→20:33)
[2016-08-18 08:00] VITALS: BP 128/81; PULSE 81; RESP 17; TEMP 97.9; O2SAT 99
[2016-08-18] MEDS: LISINOPRIL 5 MG TAB PO SCH (08:07)
[2016-08-18] MEDS: POTASSIUM CHLORIDE 10 MEQ CONTROLLED RELEASE TAB PO SCH (08:07)
[2016-08-18] MEDS: ASPIRIN EC 81 MG TABEC PO SCH (08:07)
[2016-08-18] MEDS: SODIUM CHLORIDE 0.9% FLUSH 5 ML FLUSH FLUSH SCH ×2 (08:08→20:34)
[2016-08-18] MEDS: SERTRALINE HCL 50 MG TAB PO SCH (08:08)
[2016-08-18] MEDS: CARVEDILOL 3.125 MG TAB PO SCH ×2 (08:08→20:30)
[2016-08-18] MEDS: FUROSEMIDE 20 MG TAB PO SCH (08:08)
[2016-08-18 09:04] VITALS: O2SAT 95
[2016-08-18 10:39] VITALS: PULSE 88; O2SAT 96
[2016-08-18] MEDS: ALPRAZolam 0.25 MG TAB PO PRN (10:50)
[2016-08-18] MEDS: SODIUM CHLORIDE 0.9% IV SCH (11:34)
[2016-08-18] MEDS: DAPTOMYCIN IV SCH (11:34)
[2016-08-18] MEDS: ENOXAPARIN SODIUM 40 MG/0.4 ML SYRINGE SQ SCH (11:37)
[2016-08-18 11:42] VITALS: O2SAT 96
--- NOTE | 2016-08-18 13:13 | HHI.PR ---
Subjective Remarks Follow-up for bacteremia, CHF. Patient admits to pleuritic pain since hospitalization stating that he has needed pain medication more frequently. Patient was witnessed to be walking back from the bathroom and did not appear winded. Again c/o fluid restrictions. Objective Vitals Vital Signs Date Time Temp Pulse Resp B/P Pulse Ox O2 Delivery O2 Flow Rate FiO2 08/18/16 13:05 97 08/18/16 11:42 96 21 08/18/16 10:39 88 96 08/18/16 09:04 95 08/18/16 08:29 96 Room Air 08/18/16 08:00 97.9 81 17 128/81 99 08/18/16 04:00 Room Air 08/18/16 00:00 Room Air 08/17/16 20:55 98 21 08/17/16 20:00 96 Room Air 08/17/16 20:00 98.7 86 20 118/89 96 08/17/16 16:12 98 Room Air I/O 08/17/16 08/17/16 08/17/16 08/18/16 08/18/16 08/18/16 07:00 15:00 23:00 07:00 15:00 23:00 Intake Total 60 ml 720 ml Output Total 850 ml 975 ml 1400 ml Balance -790 ml -255 ml -1400 ml Intake Oral 60 ml 720 ml Output Urine Total 850 ml 975 ml 1400 ml # Bowel Movements 0 1 1 Result Diagram: 08/15/16 0655 08/17/16 0953 Objective Remarks GENERAL: Well-nourished, well developed patient no apparent distress sleeping when I enter the room. CHEST: Reproducible tenderness over right anterior chest wall. CARDIOVASCULAR: Regular rate and rhythm. RESPIRATORY: No accessory muscle use. Diminished breath sounds on the right, mostly lower lobe. No crackles evident over left lower lobe. NEUROLOGICAL: Awake and alert. Motor grossly within normal limits. Normal speech. PSYCHIATRIC: Appropriate mood and affect. Urinary Catheter: No Vascular Central Line Catheter: No A/P Assessment and Plan Bacteremia, MSSA Patient high risk due to IV drug use, previous spine osteomyelitis, possible endocarditis, spine hardware infection status post removal. Echocardiogram was performed which did not indicate any abnormalities or vegetations Blood cultures with one set positive with staph coag negative, negative cultures since 07/23/16 Infectious disease was consulted and followed the patient with recommendations to include: Daptomycin with stop date 09/03/16 Labs improved on 08/15. CBC, CMP, CPK level weekly, next labs ordered for 08/22/16. On-call infectious disease consult the last week of treatment. Recommend MRI of spine to see status of fluid collections prior to discharge. Pain control; need to continue to adjust every 5-7 days until off pain medicine prior to discharge Tylenol 650 mg every 4 hours as needed for pain 1-5 Oxycodone 5 mg every 8 hours as needed for pain 6-10 (adjusted 08/16) Left wrist abscesses, likely from IV drug use I&D was performed Cultures 07/23 indicates MRSA Fungal cultures negative History of previous back surgery Status post removal of hardware secondary to previous MSSA infection MRI of the spine indicates elongated fluid collections in the posterior paraspinous soft tissue on the right and left without MRI features convincing for abscess these are presumed seromas and or old hematomas. No evidence of osteomyelitis Urinary tract infection Staph aureus on 07/21; possible translocation from staph bacteremia Acute renal failure superimposed on chronic kidney disease stage III Likely secondary to diuresis, vancomycin Nephrology consulted: appreciate recommendations. Renal US unremarkable: no evidence for hydronephrosis. Posterior bladder wall thickening or dependent debris. MILLER again on 08/13 due to diuresis but improved. BUN/Cr 27/1.00 on 08/17 BMP. Chronic systolic congestive heart failure BNP on admission was significantly elevated. Echocardiogram shows systolic function severely reduced, ejection fraction 15- 20%. ACS evaluation negative Cardiology consulted and made recommendations, nonischemic cardiomyopathy. Okay to discharge from cardiology standpoint Nuclear stress test showing ventriculomegaly with large fixed perfusion abnormality and no evidence of stress-induced reversible abnormalities. Severe global hypokinesia with 14% ejection fraction. Continue Medications: Lasix 20 mg po daily KCL 10meq po daily Aspirin 81mg daily Lisinopril 5 mg po daily Coreg 3.125 mg po q12h Exacerbation started on 08/12. O2 saturation decreased requiring O2 via NC. Chest x-ray 08/12 with moderate congestion bilaterally, small R pleural effusion. Patient received 80 mg IV Lasix and 40 mEq po KCl on 08/12. Chest x-ray 08/13 with no significant change from prior. Strict I & O, po fluid restriction. Duonebs and oxygen prn. Switched 20 mg po Lasix to 20 mg IV daily for 3 days, last IV Lasix dose on . PO Lasix resumed. 08/18: Patient's breathing is improved. Diminished breath sounds on R due to effusion, same as prior exams. Crackles resolved over LLL. Good urine output after IV Lasix. Continue on po Lasix. Patient now has normal oxygen saturation 96%+ on RA. Oxygen no longer required. Ambulating well without significant dyspnea. PT evaluated patient for deconditioning; states he may benefit from cardiopulmonary rehab. Diabetes: [id number] this morning. Hemoglobin A1c 8.6. Continue Accu-Checks with sliding scale insulin soccer referee consulted and note reviewed. Consider oral hypoglycemics, metformin. I discussed starting metformin with patient, but he states he does not like taking medications stating he was on metformin 1000 mg twice daily in addition to cholesterol and antihypertensive medications in the past. He was informed of the risks of not controlling his diabetes. I will hold off on starting metformin at this point due to patient's lack of desire to start treatment. 1800 ADA diet Polysubstance abuse Patient admits to marijuana, Dilaudid, cocaine, methamphetamine drug use. UDS positive for cocaine and methamphetamine Patient counseled on cessation Malnutrition Prealbumin 9, continue to follow monthly Dietitian following, recommends: 1999ADA diet Glucerna Shakes tid Double Protein w/meals Milk w/Meals Provide one serving of peanut butter and/or cheese w/meals Anxiety: Xanax 0.25mg PRN, Zoloft 50 mg po daily DVT prophylaxis: Lovenox 08/18: Heating pad ordered for chest and back pain. Discharge Planning D/c when antibiotics completed. CM following. Yazmin Patino Aug 18, 2016 13:13
[2016-08-18 20:00] VITALS: BP 125/84; PULSE 87; RESP 19; TEMP 97.6; O2SAT 95
[2016-08-18 20:20] VITALS: O2SAT 95
[2016-08-19] MEDS: ALPRAZolam 0.25 MG TAB PO PRN (00:12)
[2016-08-19] MEDS: INSULIN ASPART SUPPLEMENTAL SCALE SQ SCH ×4 (06:21→21:00)
[2016-08-19 08:00] VITALS: BP 113/82; PULSE 87; RESP 18; TEMP 97.5; O2SAT 94; O2SAT 98
[2016-08-19] MEDS: SODIUM CHLORIDE 0.9% FLUSH 5 ML FLUSH FLUSH SCH ×2 (09:00→21:56)
[2016-08-19] MEDS: POTASSIUM CHLORIDE 10 MEQ CONTROLLED RELEASE TAB PO SCH (10:01)
[2016-08-19] MEDS: FUROSEMIDE 20 MG TAB PO SCH (10:01)
[2016-08-19] MEDS: ASPIRIN EC 81 MG TABEC PO SCH (10:01)
[2016-08-19] MEDS: LISINOPRIL 5 MG TAB PO SCH (10:01)
[2016-08-19] MEDS: CARVEDILOL 3.125 MG TAB PO SCH ×2 (10:01→21:00)
[2016-08-19] MEDS: SERTRALINE HCL 50 MG TAB PO SCH (10:03)
--- NOTE | 2016-08-19 11:56 | HHI.PR ---
Subjective Remarks Patient seen and examined today. Patient denies any new complaints. Patient still asking if he can get more food to eat. Diabetes is in better control with current/appropriate diet. Objective Vitals Vital Signs Date Time Temp Pulse Resp B/P Pulse Ox O2 Delivery O2 Flow Rate FiO2 08/19/16 08:00 94 21 08/19/16 08:00 97.5 87 18 113/82 98 08/18/16 21:29 14 08/18/16 20:20 95 21 08/18/16 20:00 97.6 87 19 125/84 95 08/18/16 20:00 95 Room Air 08/18/16 13:05 97 I/O 08/18/16 08/18/16 08/18/16 08/19/16 08/19/16 08/19/16 07:00 15:00 23:00 07:00 15:00 23:00 Intake Total 420 ml 220 ml 480 ml Output Total 1400 ml 900 ml 300 ml 750 ml Balance -1400 ml -480 ml -80 ml -270 ml Intake Oral 420 ml 220 ml 480 ml Output Urine Total 1400 ml 900 ml 300 ml 750 ml # Bowel Movements 1 0 0 Result Diagram: 08/15/16 0655 08/17/16 0953 Objective Remarks GENERAL: Well-developed, well-nourished, in no acute distress. alert and orientated HEENT: Head is normocephalic without any lesions or masses noted. Facial features are symmetric. Eyes: Extraocular muscles are intact. Conjunctivae were clear. NECK: Trachea midline no deviation. No JVD, CARDIAC: Regular rhythm, regular rate. S1/S2 are heard. No murmurs gallops or rubs. LUNGS: Clear to auscultation bilaterally. No wheeze, rhonchi or rales. No use of accessory muscles on inspiration or expiration. ABDOMEN: Soft, nontender. Nondistended. Bowel sounds heard in all 4 quadrants. No organomegaly or masses. Negative rebound, negative guarding EXTREMITIES: No edema, pulses are equal bilaterally. No cyanosis or clubbing NEUROLOGY: Mood and affect appear appropriate. Cranial nerves II through XII grossly intact. Moving all extremities, speech is clear Urinary Catheter: No Vascular Central Line Catheter: No A/P Assessment and Plan Bacteremia, MSSA Patient high risk due to IV drug use, previous spine osteomyelitis, possible endocarditis, spine hardware infection status post removal. Echocardiogram was performed which did not indicate any abnormalities or vegetations Blood cultures with one set positive with staph coag negative, negative cultures since 07/23/16 Infectious disease was consulted and followed the patient with recommendations to include: Daptomycin with stop date 09/03/16 CBC, CMP, CPK level weekly, next labs ordered 08/22/16 On-call infectious disease consult the last week of treatment. Recommend MRI of spine to see status of fluid collections prior to discharge. Pain control, adjusted , will need to continue to adjust every 5-7 days until off pain medicine prior to discharge Tylenol 650 mg every 4 hours as needed for pain 15 Oxycodone 5 mg every 8 hours as needed for pain / Left wrist abscesses, likely from IV drug use I&D was performed Cultures indicate MRSA Fungal cultures negative History of previous back surgery Status post removal of hardware secondary to previous MSSA infection MRI of the spine indicates elongated fluid collections in the posterior paraspinous soft tissue on the right and left without MRI features convincing for abscess these are presumed seromas and or old hematomas. No evidence of osteomyelitis Urinary tract infection Staph aureus possible translocation from staph bacteremia Acute renal failure superimposed on chronic kidney disease stage III Likely secondary to diuresis, vancomycin Renal functions have returned to baseline Nephrology consulted: appreciate recommendations. Renal US unremarkable: no evidence for hydronephrosis. Posterior bladder wall thickening or dependent debris. Chronic systolic congestive heart failure with acute exacerbation on 08/12/16, resolved BNP on admission was significantly elevated. Echocardiogram shows systolic function severely reduced, ejection fraction 15- 20%. ACS evaluation negative Cardiology consulted and made recommendations, nonischemic cardiomyopathy. Okay to discharge from cardiology standpoint Nuclear stress test showing ventriculomegaly with large fixed perfusion abnormality and no evidence of stress-induced reversible abnormalities. Severe global hypokinesia with 14% ejection fraction. Continue Medications: Lasix 20 mg po daily KCL 10meq po daily Aspirin 81mg daily Lisinopril 5 mg po daily Coreg 3.125 mg po q12h Diabetes Continue Accu-Cheks with sliding scale insulin Required 1 units of regular insulin in the last 24 hours agricultural extension educator consulted Consider oral hypoglycemics metformin 1999 ADA diet Polysubstance abuse Patient admits to marijuana, Dilaudid, cocaine, methamphetamine drug use. UDS positive for cocaine and methamphetamine Patient counseled on cessation Malnutrition Prealbumin 9, continue to follow monthly Consult dietary for recommendations, who recommended 2000-calorie ADA diet with Glucerna shakes 3 times a day Added nutritional supplement to each meal Anxiety: Xanax 0.25mg PRN, Zoloft 50 mg po daily DVT prophylaxis: Lovenox Discharge Planning Discharge planning per case management, likely discharge after antibiotics complete on 09/03/16 Jalil Gupta Aug 19, 2016 11:56
[2016-08-19] MEDS: SODIUM CHLORIDE 0.9% IV SCH (12:01)
[2016-08-19] MEDS: DAPTOMYCIN IV SCH (12:01)
[2016-08-19] MEDS: ENOXAPARIN SODIUM 40 MG/0.4 ML SYRINGE SQ SCH (13:00)
[2016-08-19 20:00] VITALS: BP 112/80; PULSE 83; RESP 15; TEMP 96.6; O2SAT 96
[2016-08-19 20:45] VITALS: O2SAT 95
[2016-08-20] MEDS: INSULIN ASPART SUPPLEMENTAL SCALE SQ SCH ×4 (06:24→21:23)
[2016-08-20 08:00] VITALS: BP 128/89; PULSE 97; RESP 18; TEMP 96.6; O2SAT 95; O2SAT 98
[2016-08-20] MEDS: ASPIRIN EC 81 MG TABEC PO SCH (08:27)
[2016-08-20] MEDS: FUROSEMIDE 20 MG TAB PO SCH (08:27)
[2016-08-20] MEDS: SERTRALINE HCL 50 MG TAB PO SCH (08:27)
[2016-08-20] MEDS: SODIUM CHLORIDE 0.9% FLUSH 5 ML FLUSH FLUSH SCH ×2 (08:27→21:56)
[2016-08-20] MEDS: LISINOPRIL 5 MG TAB PO SCH (08:27)
[2016-08-20] MEDS: CARVEDILOL 3.125 MG TAB PO SCH ×2 (08:27→21:00)
[2016-08-20] MEDS: POTASSIUM CHLORIDE 10 MEQ CONTROLLED RELEASE TAB PO SCH (08:27)
--- NOTE | 2016-08-20 10:16 | HHI.PR ---
Subjective Remarks Patient seen and examined today. She states he did have some mild shortness of breath when he first woke up this morning, however it has resolved. Objective Vitals Vital Signs Date Time Temp Pulse Resp B/P Pulse Ox O2 Delivery O2 Flow Rate FiO2 08/20/16 08:00 95 21 08/19/16 20:57 18 08/19/16 20:45 95 21 08/19/16 20:00 96.6 83 15 112/80 96 08/19/16 20:00 96 Room Air 08/19/16 17:05 98 Room Air I/O 08/19/16 08/19/16 08/19/16 08/20/16 08/20/16 08/20/16 07:00 15:00 23:00 07:00 15:00 23:00 Intake Total 480 ml 900 ml 240 ml 120 ml Output Total 750 ml 1000 ml 650 ml 375 ml Balance -270 ml -100 ml -410 ml -255 ml Intake Oral 480 ml 900 ml 240 ml 120 ml Output Urine Total 750 ml 1000 ml 650 ml 375 ml # Bowel Movements 0 0 0 Result Diagram: 08/17/16 0953 Objective Remarks GENERAL: Well-developed, well-nourished, in no acute distress. alert and orientated HEENT: Head is normocephalic without any lesions or masses noted. Facial features are symmetric. Eyes: Extraocular muscles are intact. Conjunctivae were clear. NECK: Trachea midline no deviation. No JVD, CARDIAC: Regular rhythm, regular rate. S1/S2 are heard. No murmurs gallops or rubs. LUNGS: Clear to auscultation bilaterally. No wheeze, rhonchi or rales. No use of accessory muscles on inspiration or expiration. ABDOMEN: Soft, nontender. Nondistended. Bowel sounds heard in all 4 quadrants. No organomegaly or masses. Negative rebound, negative guarding EXTREMITIES: No edema, pulses are equal bilaterally. No cyanosis or clubbing NEUROLOGY: Mood and affect appear appropriate. Cranial nerves II through XII grossly intact. Moving all extremities, speech is clear Urinary Catheter: No Vascular Central Line Catheter: No A/P Assessment and Plan Bacteremia, MSSA Patient high risk due to IV drug use, previous spine osteomyelitis, possible endocarditis, spine hardware infection status post removal. Echocardiogram was performed which did not indicate any abnormalities or vegetations Blood cultures with one set positive with staph coag negative, negative cultures since 07/23/16 Infectious disease was consulted and followed the patient with recommendations to include: Daptomycin with stop date 09/03/16 CBC, CMP, CPK level weekly, next labs ordered 08/22/16 On-call infectious disease consult the last week of treatment. Recommend MRI of spine to see status of fluid collections prior to discharge. Pain control, will need to continue to adjust every 5-7 days until off pain medicine prior to discharge Tylenol 650 mg every 4 hours as needed for pain 15 Oxycodone 5 mg every 12 hours as needed for pain 6/10 Left wrist abscesses, likely from IV drug use I&D was performed Cultures indicate MRSA Fungal cultures negative History of previous back surgery Status post removal of hardware secondary to previous MSSA infection MRI of the spine indicates elongated fluid collections in the posterior paraspinous soft tissue on the right and left without MRI features convincing for abscess these are presumed seromas and or old hematomas. No evidence of osteomyelitis Urinary tract infection Staph aureus possible translocation from staph bacteremia Acute renal failure superimposed on chronic kidney disease stage III Likely secondary to diuresis, vancomycin Renal functions have returned to baseline Nephrology consulted: appreciate recommendations. Renal US unremarkable: no evidence for hydronephrosis. Posterior bladder wall thickening or dependent debris. Chronic systolic congestive heart failure with acute exacerbation on 08/12/16, resolved BNP on admission was significantly elevated. Echocardiogram shows systolic function severely reduced, ejection fraction 15- 20%. ACS evaluation negative Cardiology consulted and made recommendations, nonischemic cardiomyopathy. Okay to discharge from cardiology standpoint Nuclear stress test showing ventriculomegaly with large fixed perfusion abnormality and no evidence of stress-induced reversible abnormalities. Severe global hypokinesia with 14% ejection fraction. Continue Medications: Lasix 20 mg po daily KCL 10meq po daily Aspirin 81mg daily Lisinopril 5 mg po daily Coreg 3.125 mg po q12h Diabetes Continue Accu-Cheks with sliding scale insulin Required 1 units of regular insulin in the last 24 hours fan runner consulted Consider oral hypoglycemics metformin 2000 ADA diet Polysubstance abuse Patient admits to marijuana, Dilaudid, cocaine, methamphetamine drug use. UDS positive for cocaine and methamphetamine Patient counseled on cessation Malnutrition Prealbumin 9, continue to follow monthly Consult dietary for recommendations, who recommended 2000-calorie ADA diet with Glucerna shakes 3 times a day Added nutritional supplement to each meal Anxiety: Xanax 0.25mg PRN, Zoloft 50 mg po daily DVT prophylaxis: Lovenox Discharge Planning Discharge planning per case management, likely discharge after antibiotics complete on 09/03/16 Jalil Gupta Aug 20, 2016 10:16
[2016-08-20] MEDS: ALPRAZolam 0.25 MG TAB PO PRN ×2 (10:38→21:57)
[2016-08-20] MEDS: SODIUM CHLORIDE 0.9% IV SCH (12:47)
[2016-08-20] MEDS: DAPTOMYCIN IV SCH (12:47)
[2016-08-20] MEDS: ENOXAPARIN SODIUM 40 MG/0.4 ML SYRINGE SQ SCH (12:47)
[2016-08-20 19:43] VITALS: O2SAT 95
[2016-08-20 20:00] VITALS: BP 97/60; PULSE 80; RESP 18; TEMP 97.8; O2SAT 96
[2016-08-21 08:00] VITALS: BP 110/87; PULSE 90; RESP 16; TEMP 96.1; O2SAT 91
[2016-08-21] MEDS: SODIUM CHLORIDE 0.9% FLUSH 5 ML FLUSH FLUSH SCH ×3 (08:40→21:26)
[2016-08-21] MEDS: SERTRALINE HCL 50 MG TAB PO SCH (08:45)
[2016-08-21] MEDS: CARVEDILOL 3.125 MG TAB PO SCH ×2 (08:45→21:00)
[2016-08-21] MEDS: FUROSEMIDE 20 MG TAB PO SCH (08:45)
[2016-08-21] MEDS: ASPIRIN EC 81 MG TABEC PO SCH (08:45)
[2016-08-21] MEDS: POTASSIUM CHLORIDE 10 MEQ CONTROLLED RELEASE TAB PO SCH (08:46)
[2016-08-21] MEDS: LISINOPRIL 5 MG TAB PO SCH (08:46)
[2016-08-21] MEDS: ALPRAZolam 0.25 MG TAB PO PRN (10:49)
[2016-08-21] MEDS: INSULIN ASPART SUPPLEMENTAL SCALE SQ SCH ×4 (11:00→21:26)
--- NOTE | 2016-08-21 11:14 | HHI.PR ---
Subjective Remarks Patient seen and examined today. Patient states that he is having some palpable chest discomfort this morning. Denies any shortness of breath or dyspnea. Objective Vitals Vital Signs Date Time Temp Pulse Resp B/P Pulse Ox O2 Delivery O2 Flow Rate FiO2 08/21/16 08:00 96.1 90 16 110/87 91 08/20/16 22:58 14 08/20/16 20:00 97.8 80 18 97/60 96 08/20/16 20:00 96 Room Air 08/20/16 19:43 95 I/O 08/20/16 08/20/16 08/20/16 08/21/16 08/21/16 08/21/16 07:00 15:00 23:00 07:00 15:00 23:00 Intake Total 120 ml 700 ml 240 ml 120 ml Output Total 375 ml 1325 ml 450 ml 300 ml Balance -255 ml -625 ml -210 ml -180 ml Intake Oral 120 ml 600 ml 240 ml 120 ml IV Total 100 ml Output Urine Total 375 ml 1325 ml 450 ml 300 ml # Bowel Movements 0 Result Diagram: 08/17/16 0953 Objective Remarks GENERAL: Well-developed, well-nourished, in no acute distress. alert and orientated HEENT: Head is normocephalic without any lesions or masses noted. Facial features are symmetric. Eyes: Extraocular muscles are intact. Conjunctivae were clear. NECK: Trachea midline no deviation. No JVD, CARDIAC: Regular rhythm, regular rate. S1/S2 are heard. No murmurs gallops or rubs. LUNGS: Clear to auscultation bilaterally. No wheeze, rhonchi or rales. No use of accessory muscles on inspiration or expiration. ABDOMEN: Soft, nontender. Nondistended. Bowel sounds heard in all 4 quadrants. No organomegaly or masses. Negative rebound, negative guarding EXTREMITIES: No edema, pulses are equal bilaterally. No cyanosis or clubbing NEUROLOGY: Mood and affect appear appropriate. Cranial nerves II through XII grossly intact. Moving all extremities, speech is clear Urinary Catheter: No Vascular Central Line Catheter: No A/P Assessment and Plan Bacteremia, MSSA Patient high risk due to IV drug use, previous spine osteomyelitis, possible endocarditis, spine hardware infection status post removal. Echocardiogram was performed which did not indicate any abnormalities or vegetations Blood cultures with one set positive with staph coag negative, negative cultures since 07/23/16 Infectious disease was consulted and followed the patient with recommendations to include: Daptomycin with stop date 09/03/16 CBC, CMP, CPK level weekly, next labs ordered 08/22/16 On-call infectious disease consult the last week of treatment. Recommend MRI of spine to see status of fluid collections prior to discharge. Pain control, will need to continue to adjust every 5-7 days until off pain medicine prior to discharge Tylenol 650 mg every 4 hours as needed for pain 15 Oxycodone 5 mg every 12 hours as needed for pain 6/10 Left wrist abscesses, likely from IV drug use I&D was performed Cultures indicate MRSA Fungal cultures negative History of previous back surgery Status post removal of hardware secondary to previous MSSA infection MRI of the spine indicates elongated fluid collections in the posterior paraspinous soft tissue on the right and left without MRI features convincing for abscess these are presumed seromas and or old hematomas. No evidence of osteomyelitis Urinary tract infection Staph aureus possible translocation from staph bacteremia Acute renal failure superimposed on chronic kidney disease stage III Likely secondary to diuresis, vancomycin Renal functions have returned to baseline Nephrology consulted: appreciate recommendations. Renal US unremarkable: no evidence for hydronephrosis. Posterior bladder wall thickening or dependent debris. Chronic systolic congestive heart failure with acute exacerbation on 08/12/16, resolved BNP on admission was significantly elevated. Echocardiogram shows systolic function severely reduced, ejection fraction 15- 20%. ACS evaluation negative Cardiology consulted and made recommendations, nonischemic cardiomyopathy. Okay to discharge from cardiology standpoint Nuclear stress test showing ventriculomegaly with large fixed perfusion abnormality and no evidence of stress-induced reversible abnormalities. Severe global hypokinesia with 14% ejection fraction. Continue Medications: Lasix 20 mg po daily KCL 10meq po daily Aspirin 81mg daily Lisinopril 5 mg po daily Coreg 3.125 mg po q12h Diabetes Continue Accu-Cheks with sliding scale insulin Required 1 units of regular insulin in the last 24 hours life educator consulted Consider oral hypoglycemics metformin 2000 ADA diet Polysubstance abuse Patient admits to marijuana, Dilaudid, cocaine, methamphetamine drug use. UDS positive for cocaine and methamphetamine Patient counseled on cessation Malnutrition Prealbumin 9, continue to follow monthly Consult dietary for recommendations, who recommended 2000-calorie ADA diet with Glucerna shakes 3 times a day Added nutritional supplement to each meal Anxiety: Regisx 0.25mg PRN, Zoloft 50 mg po daily DVT prophylaxis: Lovenox Discharge Planning Discharge planning per case management, likely discharge after antibiotics complete on 09/03/16 Jalil Gupta Aug 21, 2016 11:14
[2016-08-21] MEDS: ENOXAPARIN SODIUM 40 MG/0.4 ML SYRINGE SQ SCH (11:38)
[2016-08-21] MEDS: DAPTOMYCIN IV SCH (11:39)
[2016-08-21] MEDS: SODIUM CHLORIDE 0.9% IV SCH (11:39)
[2016-08-21 20:00] VITALS: BP 106/71; PULSE 84; RESP 16; TEMP 97.2; O2SAT 96
[2016-08-22] MEDS: INSULIN ASPART SUPPLEMENTAL SCALE SQ SCH ×4 (06:47→21:36)
[2016-08-22 07:17] LABS: AUTOMATED NEUTROPHIL # 3.2 TH/MM3 (1.8-7.7); BASOPHIL # 0.1 TH/MM3 (0-0.2); BASOPHIL % 1.1 % (0.0-2.0); EOSINOPHIL # 0.2 TH/MM3 (0-0.4); EOSINOPHIL % 3.3 % (0.0-4.0); HEMATOCRIT 46.1 % (39.0-51.0); HEMO FLAGS DIFF FINAL; LYMPH % 36.3 % (9.0-44.0); LYMPHOCYTE # 2.3 TH/MM3 (1.0-4.8); MEAN CELL VOLUME 85.3 FL (80.0-100.0); MEAN CORPUSCULAR HEMOGLOBIN 27.7 PG (27.0-34.0); MEAN CORPUSCULAR HGB CONC 32.4 % (32.0-36.0); NEUT % 50.3 % (16.0-70.0); PLATELET COUNT 251 TH/MM3 (150-450); RED CELL DISTRIBUTION WIDTH 14.8 % (11.6-17.2); WHITE BLOOD COUNT 6.4 TH/MM3 (4.0-11.0)
[2016-08-22 07:33] LABS: CHLORIDE 102 MEQ/L (98-107); POTASSIUM 4.3 MEQ/L (3.5-5.1); SODIUM (NA) 137 MEQ/L (136-145)
[2016-08-22 07:37] LABS: ANION GAP 6 MEQ/L (5-15); BICARBONATE 28.6 MEQ/L (21.0-32.0); BLOOD UREA NITROGEN 30 MG/DL (7-18)
[2016-08-22 07:40] LABS: ALT (GPT) 29 U/L (12-78); AST (GOT) 37 U/L (15-37); GLOMERULAR FILTRATION RATE 76 ML/MIN (>89)
[2016-08-22 07:41] LABS: TOTAL BILIRUBIN ADULT 0.4 MG/DL (0.2-1.0)
[2016-08-22 07:43] LABS: ALKALINE PHOSPHATASE 181 U/L (45-117)
[2016-08-22 08:00] VITALS: BP 122/86; PULSE 90; RESP 18; TEMP 97.7; O2SAT 97
[2016-08-22] MEDS: ASPIRIN EC 81 MG TABEC PO SCH (09:33)
[2016-08-22] MEDS: LISINOPRIL 5 MG TAB PO SCH (09:33)
[2016-08-22] MEDS: FUROSEMIDE 20 MG TAB PO SCH (09:34)
[2016-08-22] MEDS: SERTRALINE HCL 50 MG TAB PO SCH (09:34)
[2016-08-22] MEDS: POTASSIUM CHLORIDE 10 MEQ CONTROLLED RELEASE TAB PO SCH (09:34)
[2016-08-22] MEDS: CARVEDILOL 3.125 MG TAB PO SCH ×2 (09:35→21:00)
--- NOTE | 2016-08-22 10:13 | HHI.PR ---
Subjective Remarks Patient seen and examined today. Patient denies any new complaints. No change in clinical status. This record reviewed. No acute events overnight. No change in present treatment plan and awaiting case management for discharge planning Objective Vitals Vital Signs Date Time Temp Pulse Resp B/P Pulse Ox O2 Delivery O2 Flow Rate FiO2 08/22/16 08:00 97.7 90 18 122/86 97 08/22/16 01:40 16 08/21/16 20:05 21 08/21/16 20:00 97.2 84 16 106/71 96 Automatic Cuff 08/21/16 20:00 99 Room Air I/O 08/21/16 08/21/16 08/21/16 08/22/16 08/22/16 08/22/16 07:00 15:00 23:00 07:00 15:00 23:00 Intake Total 120 ml 500 ml 650 ml 480 ml Output Total 300 ml 1750 ml 500 ml Balance -180 ml -1250 ml 650 ml -20 ml Intake Oral 120 ml 500 ml 650 ml 480 ml Output Urine Total 300 ml 1750 ml 500 ml # Voids 0 # Bowel Movements 1 0 0 Result Diagram: 08/22/1670408/22/16704 Objective Remarks GENERAL: Well-developed, well-nourished, in no acute distress. alert and orientated HEENT: Head is normocephalic without any lesions or masses noted. Facial features are symmetric. Eyes: Extraocular muscles are intact. Conjunctivae were clear. NECK: Trachea midline no deviation. No JVD, CARDIAC: Regular rhythm, regular rate. S1/S2 are heard. No murmurs gallops or rubs. LUNGS: Clear to auscultation bilaterally. No wheeze, rhonchi or rales. No use of accessory muscles on inspiration or expiration. ABDOMEN: Soft, nontender. Nondistended. Bowel sounds heard in all 4 quadrants. No organomegaly or masses. Negative rebound, negative guarding EXTREMITIES: No edema, pulses are equal bilaterally. No cyanosis or clubbing NEUROLOGY: Mood and affect appear appropriate. Cranial nerves II through XII grossly intact. Moving all extremities, speech is clear Urinary Catheter: No Vascular Central Line Catheter: No A/P Assessment and Plan Bacteremia, MSSA Patient high risk due to IV drug use, previous spine osteomyelitis, possible endocarditis, spine hardware infection status post removal. Echocardiogram was performed which did not indicate any abnormalities or vegetations Blood cultures with one set positive with staph coag negative, negative cultures since 07/23/16 Infectious disease was consulted and followed the patient with recommendations to include: Daptomycin with stop date 09/03/16 CBC, CMP, CPK level weekly, next labs ordered 08/22/16 On-call infectious disease consult the last week of treatment. Recommend MRI of spine to see status of fluid collections prior to discharge. Pain control, will need to continue to adjust every 5-7 days until off pain medicine prior to discharge Tylenol 650 mg every 4 hours as needed for pain 15 Oxycodone 5 mg every 12 hours as needed for pain 6/10 Left wrist abscesses, likely from IV drug use I&D was performed Cultures indicate MRSA Fungal cultures negative History of previous back surgery Status post removal of hardware secondary to previous MSSA infection MRI of the spine indicates elongated fluid collections in the posterior paraspinous soft tissue on the right and left without MRI features convincing for abscess these are presumed seromas and or old hematomas. No evidence of osteomyelitis Urinary tract infection Staph aureus possible translocation from staph bacteremia Acute renal failure superimposed on chronic kidney disease stage III Likely secondary to diuresis, vancomycin Renal functions have returned to baseline Nephrology consulted: appreciate recommendations. Renal US unremarkable: no evidence for hydronephrosis. Posterior bladder wall thickening or dependent debris. Chronic systolic congestive heart failure with acute exacerbation on 08/12/16, resolved BNP on admission was significantly elevated. Echocardiogram shows systolic function severely reduced, ejection fraction 15- 20%. ACS evaluation negative Cardiology consulted and made recommendations, nonischemic cardiomyopathy. Okay to discharge from cardiology standpoint Nuclear stress test showing ventriculomegaly with large fixed perfusion abnormality and no evidence of stress-induced reversible abnormalities. Severe global hypokinesia with 14% ejection fraction. Continue Medications: Lasix 20 mg po daily KCL 10meq po daily Aspirin 81mg daily Lisinopril 5 mg po daily Coreg 3.125 mg po q12h Diabetes Continue Accu-Cheks with sliding scale insulin Required 1 units of regular insulin in the last 24 hours adaptive physical educator consulted Consider oral hypoglycemics metformin 1999 ADA diet Polysubstance abuse Patient admits to marijuana, Dilaudid, cocaine, methamphetamine drug use. UDS positive for cocaine and methamphetamine Patient counseled on cessation Malnutrition Prealbumin 9, continue to follow monthly Consult dietary for recommendations, who recommended 2000-calorie ADA diet with Glucerna shakes 3 times a day Added nutritional supplement to each meal Anxiety: Xanax 0.25mg PRN, Zoloft 50 mg po daily DVT prophylaxis: Lovenox Discharge Planning Discharge planning per case management, likely discharge after antibiotics complete on 09/03/16 Jalil Gupta Aug 22, 2016 10:13
[2016-08-22] MEDS: SODIUM CHLORIDE 0.9% IV SCH (12:21)
[2016-08-22] MEDS: DAPTOMYCIN IV SCH (12:21)
[2016-08-22] MEDS: ENOXAPARIN SODIUM 40 MG/0.4 ML SYRINGE SQ SCH (12:25)
[2016-08-22 16:00] VITALS: O2SAT 96
[2016-08-22 19:16] VITALS: O2SAT 97
[2016-08-22] MEDS: SODIUM CHLORIDE 0.9% FLUSH 5 ML FLUSH FLUSH SCH (21:35)
[2016-08-22 21:50] VITALS: BP 98/72; PULSE 83; RESP 18; TEMP 97; O2SAT 98
[2016-08-23] MEDS: INSULIN ASPART SUPPLEMENTAL SCALE SQ SCH ×4 (06:04→20:28)
[2016-08-23 08:00] VITALS: BP 109/74; PULSE 84; RESP 16; TEMP 97.2; O2SAT 98
[2016-08-23] MEDS: SODIUM CHLORIDE 0.9% FLUSH 5 ML FLUSH FLUSH SCH ×2 (08:50→21:00)
[2016-08-23] MEDS: ASPIRIN EC 81 MG TABEC PO SCH (08:50)
[2016-08-23] MEDS: FUROSEMIDE 20 MG TAB PO SCH (08:50)
[2016-08-23] MEDS: POTASSIUM CHLORIDE 10 MEQ CONTROLLED RELEASE TAB PO SCH (08:50)
[2016-08-23] MEDS: LISINOPRIL 5 MG TAB PO SCH (08:51)
[2016-08-23] MEDS: SERTRALINE HCL 50 MG TAB PO SCH (08:51)
[2016-08-23] MEDS: CARVEDILOL 3.125 MG TAB PO SCH ×2 (08:51→20:28)
--- NOTE | 2016-08-23 10:24 | HHI.PR ---
Subjective Remarks Patient seen and examined today. Patient denies any new complaints. No change in clinical status. This record was reviewed, no acute events overnight, no change present treatment plan. Awaiting case management for discharge planning Objective Vitals Vital Signs Date Time Temp Pulse Resp B/P Pulse Ox O2 Delivery O2 Flow Rate FiO2 08/23/16 08:00 97.2 84 16 109/74 98 08/22/16 21:50 97.0 83 18 98/72 98 08/22/16 19:16 97 08/22/16 16:00 96 21 I/O 08/22/16 08/22/16 08/22/16 08/23/16 08/23/16 08/23/16 07:00 15:00 23:00 07:00 15:00 23:00 Intake Total 480 ml 1050 ml Output Total 500 ml 1400 ml 850 ml Balance -20 ml -350 ml -850 ml Intake Oral 480 ml 1050 ml Output Urine Total 500 ml 1400 ml 850 ml # Bowel Movements 0 1 Result Diagram: 08/22/1670408/22/16 07 Objective Remarks GENERAL: Well-developed, well-nourished, in no acute distress. alert and orientated HEENT: Head is normocephalic without any lesions or masses noted. Facial features are symmetric. Eyes: Extraocular muscles are intact. Conjunctivae were clear. NECK: Trachea midline no deviation. No JVD, CARDIAC: Regular rhythm, regular rate. S1/S2 are heard. No murmurs gallops or rubs. LUNGS: Clear to auscultation bilaterally. No wheeze, rhonchi or rales. No use of accessory muscles on inspiration or expiration. ABDOMEN: Soft, nontender. Nondistended. Bowel sounds heard in all 4 quadrants. No organomegaly or masses. Negative rebound, negative guarding EXTREMITIES: No edema, pulses are equal bilaterally. No cyanosis or clubbing NEUROLOGY: Mood and affect appear appropriate. Cranial nerves II through XII grossly intact. Moving all extremities, speech is clear Urinary Catheter: No Vascular Central Line Catheter: No A/P Assessment and Plan Bacteremia, MSSA Patient high risk due to IV drug use, previous spine osteomyelitis, possible endocarditis, spine hardware infection status post removal. Echocardiogram was performed which did not indicate any abnormalities or vegetations Blood cultures with one set positive with staph coag negative, negative cultures since 07/23/16 Infectious disease was consulted and followed the patient with recommendations to include: Daptomycin with stop date 09/03/16 CBC, CMP, CPK level weekly, next labs ordered 08/22/16 On-call infectious disease consult the last week of treatment. Recommend MRI of spine to see status of fluid collections prior to discharge. Pain control, will need to continue to adjust every 5-7 days until off pain medicine prior to discharge Tylenol 650 mg every 4 hours as needed for pain 15 Oxycodone 5 mg every 12 hours as needed for pain 6/10 Left wrist abscesses, likely from IV drug use I&D was performed Cultures indicate MRSA Fungal cultures negative History of previous back surgery Status post removal of hardware secondary to previous MSSA infection MRI of the spine indicates elongated fluid collections in the posterior paraspinous soft tissue on the right and left without MRI features convincing for abscess these are presumed seromas and or old hematomas. No evidence of osteomyelitis Urinary tract infection Staph aureus possible translocation from staph bacteremia Acute renal failure superimposed on chronic kidney disease stage III Likely secondary to diuresis, vancomycin Renal functions have returned to baseline Nephrology consulted: appreciate recommendations. Renal US unremarkable: no evidence for hydronephrosis. Posterior bladder wall thickening or dependent debris. Chronic systolic congestive heart failure with acute exacerbation on 08/12/16, resolved BNP on admission was significantly elevated. Echocardiogram shows systolic function severely reduced, ejection fraction 15- 20%. ACS evaluation negative Cardiology consulted and made recommendations, nonischemic cardiomyopathy. Okay to discharge from cardiology standpoint Nuclear stress test showing ventriculomegaly with large fixed perfusion abnormality and no evidence of stress-induced reversible abnormalities. Severe global hypokinesia with 14% ejection fraction. Continue Medications: Lasix 20 mg po daily KCL 10meq po daily Aspirin 81mg daily Lisinopril 5 mg po daily Coreg 3.125 mg po q12h Diabetes Continue Accu-Cheks with sliding scale insulin Required 1 units of regular insulin in the last 24 hours simulation educator consulted Consider oral hypoglycemics metformin 1999 ADA diet Polysubstance abuse Patient admits to marijuana, Dilaudid, cocaine, methamphetamine drug use. UDS positive for cocaine and methamphetamine Patient counseled on cessation Malnutrition Prealbumin 9, continue to follow monthly Consult dietary for recommendations, who recommended 2000-calorie ADA diet with Glucerna shakes 3 times a day Added nutritional supplement to each meal Anxiety: Xanax 0.25mg PRN, Zoloft 50 mg po daily DVT prophylaxis: Lovenox Discharge Planning Discharge planning per case management, likely discharge after antibiotics complete on 09/03/16 Jalil Gupta Aug 23, 2016 10:24
[2016-08-23] MEDS: SODIUM CHLORIDE 0.9% IV SCH (11:52)
[2016-08-23] MEDS: DAPTOMYCIN IV SCH (11:52)
[2016-08-23] MEDS: ENOXAPARIN SODIUM 40 MG/0.4 ML SYRINGE SQ SCH (11:56)
[2016-08-23 16:00] VITALS: O2SAT 98
[2016-08-23 20:00] VITALS: BP 114/69; PULSE 85; RESP 21; TEMP 97.7; O2SAT 96
[2016-08-23 22:29] VITALS: O2SAT 97
[2016-08-24] MEDS: INSULIN ASPART SUPPLEMENTAL SCALE SQ SCH ×4 (06:03→20:39)
[2016-08-24 08:00] VITALS: BP 105/69; PULSE 85; RESP 18; TEMP 97.4; O2SAT 97
[2016-08-24] MEDS: POTASSIUM CHLORIDE 10 MEQ CONTROLLED RELEASE TAB PO SCH (08:46)
[2016-08-24] MEDS: FUROSEMIDE 20 MG TAB PO SCH (08:46)
[2016-08-24] MEDS: ASPIRIN EC 81 MG TABEC PO SCH (08:46)
[2016-08-24] MEDS: LISINOPRIL 5 MG TAB PO SCH (08:46)
[2016-08-24] MEDS: CARVEDILOL 3.125 MG TAB PO SCH ×2 (08:47→20:38)
[2016-08-24] MEDS: SERTRALINE HCL 50 MG TAB PO SCH (08:47)
--- NOTE | 2016-08-24 10:06 | HHI.PR ---
Subjective Remarks Patient seen and examined today. Patient denies any new complaints. Patient states that he wants to go to the store. Objective Vitals Vital Signs Date Time Temp Pulse Resp B/P Pulse Ox O2 Delivery O2 Flow Rate FiO2 08/24/16 08:00 97.4 85 18 105/69 97 08/23/16 22:29 97 21 08/23/16 20:00 97.7 85 21 114/69 96 08/23/16 16:00 98 21 I/O 08/23/16 08/23/16 08/23/16 08/24/16 08/24/16 08/24/16 07:00 15:00 23:00 07:00 15:00 23:00 Intake Total 480 ml 480 ml 180 ml Output Total 850 ml 675 ml 700 ml 700 ml Balance -850 ml -195 ml -220 ml -520 ml Intake Oral 480 ml 240 ml 180 ml Oral Supplement 240 ml Output Urine Total 850 ml 675 ml 700 ml 700 ml # Bowel Movements 1 1 0 0 Result Diagram: 08/22/1670408/22/16704 Objective Remarks GENERAL: Well-developed, well-nourished, in no acute distress. alert and orientated HEENT: Head is normocephalic without any lesions or masses noted. Facial features are symmetric. Eyes: Extraocular muscles are intact. Conjunctivae were clear. NECK: Trachea midline no deviation. No JVD, CARDIAC: Regular rhythm, regular rate. S1/S2 are heard. No murmurs gallops or rubs. LUNGS: Clear to auscultation bilaterally. No wheeze, rhonchi or rales. No use of accessory muscles on inspiration or expiration. ABDOMEN: Soft, nontender. Nondistended. Bowel sounds heard in all 4 quadrants. No organomegaly or masses. Negative rebound, negative guarding EXTREMITIES: No edema, pulses are equal bilaterally. No cyanosis or clubbing NEUROLOGY: Mood and affect appear appropriate. Cranial nerves II through XII grossly intact. Moving all extremities, speech is clear Urinary Catheter: No Vascular Central Line Catheter: No A/P Assessment and Plan Bacteremia, MSSA Patient high risk due to IV drug use, previous spine osteomyelitis, possible endocarditis, spine hardware infection status post removal. Echocardiogram was performed which did not indicate any abnormalities or vegetations Blood cultures with one set positive with staph coag negative, negative cultures since 07/23/16 Infectious disease was consulted and followed the patient with recommendations to include: Daptomycin with stop date 09/03/16 CBC, CMP, CPK level weekly, next labs ordered 08/22/16 On-call infectious disease consult the last week of treatment. Recommend MRI of spine to see status of fluid collections prior to discharge. Pain control, will need to continue to adjust every 5-7 days until off pain medicine prior to discharge Tylenol 650 mg every 4 hours as needed for pain 15 Oxycodone 5 mg every 12 hours as needed for pain 6/10 Left wrist abscesses, likely from IV drug use I&D was performed Cultures indicate MRSA Fungal cultures negative History of previous back surgery Status post removal of hardware secondary to previous MSSA infection MRI of the spine indicates elongated fluid collections in the posterior paraspinous soft tissue on the right and left without MRI features convincing for abscess these are presumed seromas and or old hematomas. No evidence of osteomyelitis Urinary tract infection Staph aureus possible translocation from staph bacteremia Acute renal failure superimposed on chronic kidney disease stage III Likely secondary to diuresis, vancomycin Renal functions have returned to baseline Nephrology consulted: appreciate recommendations. Renal US unremarkable: no evidence for hydronephrosis. Posterior bladder wall thickening or dependent debris. Chronic systolic congestive heart failure with acute exacerbation on 08/12/16, resolved BNP on admission was significantly elevated. Echocardiogram shows systolic function severely reduced, ejection fraction 15- 20%. ACS evaluation negative Cardiology consulted and made recommendations, nonischemic cardiomyopathy. Okay to discharge from cardiology standpoint Nuclear stress test showing ventriculomegaly with large fixed perfusion abnormality and no evidence of stress-induced reversible abnormalities. Severe global hypokinesia with 14% ejection fraction. Continue Medications: Lasix 20 mg po daily KCL 10meq po daily Aspirin 81mg daily Lisinopril 5 mg po daily Coreg 3.125 mg po q12h Diabetes Continue Accu-Cheks with sliding scale insulin Required 1 units of regular insulin in the last 24 hours model and dye person consulted Consider oral hypoglycemics metformin 2000 ADA diet Polysubstance abuse Patient admits to marijuana, Dilaudid, cocaine, methamphetamine drug use. UDS positive for cocaine and methamphetamine Patient counseled on cessation Malnutrition Prealbumin 9, continue to follow monthly Consult dietary for recommendations, who recommended 2000-calorie ADA diet with Glucerna shakes 3 times a day Added nutritional supplement to each meal Anxiety: Xanax 0.25mg PRN, Zoloft 50 mg po daily DVT prophylaxis: Lovenox No change in present treatment plan Discharge Planning Discharge planning per case management, likely discharge after antibiotics complete on 09/03/16 Jalil Gutpa Aug 24, 2016 10:06
[2016-08-24] MEDS: DAPTOMYCIN IV SCH (12:13)
[2016-08-24] MEDS: SODIUM CHLORIDE 0.9% IV SCH (12:13)
[2016-08-24] MEDS: ENOXAPARIN SODIUM 40 MG/0.4 ML SYRINGE SQ SCH (12:14)
[2016-08-24] MEDS: SODIUM CHLORIDE 0.9% FLUSH 5 ML FLUSH FLUSH SCH ×2 (12:24→20:38)
[2016-08-24 20:00] VITALS: BP 109/73; PULSE 80; RESP 16; TEMP 95.7; O2SAT 94
[2016-08-25] MEDS: INSULIN ASPART SUPPLEMENTAL SCALE SQ SCH ×4 (07:00→20:54)
[2016-08-25 08:00] VITALS: BP 118/79; PULSE 82; RESP 16; TEMP 96.1; O2SAT 94; O2SAT 97
[2016-08-25] MEDS: SERTRALINE HCL 50 MG TAB PO SCH (09:36)
[2016-08-25] MEDS: LISINOPRIL 5 MG TAB PO SCH (09:37)
[2016-08-25] MEDS: CARVEDILOL 3.125 MG TAB PO SCH ×2 (09:37→20:54)
[2016-08-25] MEDS: POTASSIUM CHLORIDE 10 MEQ CONTROLLED RELEASE TAB PO SCH (09:37)
[2016-08-25] MEDS: ASPIRIN EC 81 MG TABEC PO SCH (09:37)
[2016-08-25] MEDS: FUROSEMIDE 20 MG TAB PO SCH (09:37)
--- NOTE | 2016-08-25 11:16 | HHI.PR ---
Subjective Remarks Patient seen and examined today. No change in clinical status. Patient denies any new complaints. Says that he is status quo. Awaiting for antibiotic treatment completed so he can leave Objective Vitals Vital Signs Date Time Temp Pulse Resp B/P Pulse Ox O2 Delivery O2 Flow Rate FiO2 08/25/16 08:00 96.1 82 16 118/79 97 08/24/16 22:29 21 08/24/16 20:00 95.7 80 16 109/73 94 I/O 08/24/16 08/24/16 08/24/16 08/25/16 08/25/16 08/25/16 07:00 15:00 23:00 07:00 15:00 23:00 Intake Total 180 ml 1735 ml 220 ml Output Total 700 ml 1700 ml 950 ml Balance -520 ml 35 ml -730 ml Intake Oral 180 ml 1620 ml 220 ml IV Total 115 ml Output Urine Total 700 ml 1700 ml 950 ml # Bowel Movements 0 2 0 Result Diagram: 08/22/1670408/22/16 0705 Objective Remarks GENERAL: Well-developed, well-nourished, in no acute distress. alert and orientated HEENT: Head is normocephalic without any lesions or masses noted. Facial features are symmetric. Eyes: Extraocular muscles are intact. Conjunctivae were clear. NECK: Trachea midline no deviation. No JVD, CARDIAC: Regular rhythm, regular rate. S1/S2 are heard. No murmurs gallops or rubs. LUNGS: Clear to auscultation bilaterally. No wheeze, rhonchi or rales. No use of accessory muscles on inspiration or expiration. ABDOMEN: Soft, nontender. Nondistended. Bowel sounds heard in all 4 quadrants. No organomegaly or masses. Negative rebound, negative guarding EXTREMITIES: No edema, pulses are equal bilaterally. No cyanosis or clubbing NEUROLOGY: Mood and affect appear appropriate. Cranial nerves II through XII grossly intact. Moving all extremities, speech is clear Urinary Catheter: No Vascular Central Line Catheter: No A/P Assessment and Plan Bacteremia, MSSA Patient high risk due to IV drug use, previous spine osteomyelitis, possible endocarditis, spine hardware infection status post removal. Echocardiogram was performed which did not indicate any abnormalities or vegetations Blood cultures with one set positive with staph coag negative, negative cultures since 07/23/16 Infectious disease was consulted and followed the patient with recommendations to include: Daptomycin with stop date 09/03/16 CBC, CMP, CPK level weekly, next labs ordered 08/22/16 On-call infectious disease consult the last week of treatment. Recommend MRI of spine to see status of fluid collections prior to discharge. Pain control, will need to continue to adjust every 5-7 days until off pain medicine prior to discharge Tylenol 650 mg every 4 hours as needed for pain 15 Oxycodone 5 mg every 12 hours as needed for pain 6/10 Left wrist abscesses, likely from IV drug use I&D was performed Cultures indicate MRSA Fungal cultures negative History of previous back surgery Status post removal of hardware secondary to previous MSSA infection MRI of the spine indicates elongated fluid collections in the posterior paraspinous soft tissue on the right and left without MRI features convincing for abscess these are presumed seromas and or old hematomas. No evidence of osteomyelitis Urinary tract infection Staph aureus possible translocation from staph bacteremia Acute renal failure superimposed on chronic kidney disease stage III Likely secondary to diuresis, vancomycin Renal functions have returned to baseline Nephrology consulted: appreciate recommendations. Renal US unremarkable: no evidence for hydronephrosis. Posterior bladder wall thickening or dependent debris. Chronic systolic congestive heart failure with acute exacerbation on 08/12/16, resolved BNP on admission was significantly elevated. Echocardiogram shows systolic function severely reduced, ejection fraction 15- 20%. ACS evaluation negative Cardiology consulted and made recommendations, nonischemic cardiomyopathy. Okay to discharge from cardiology standpoint Nuclear stress test showing ventriculomegaly with large fixed perfusion abnormality and no evidence of stress-induced reversible abnormalities. Severe global hypokinesia with 14% ejection fraction. Continue Medications: Lasix 20 mg po daily KCL 10meq po daily Aspirin 81mg daily Lisinopril 5 mg po daily Coreg 3.125 mg po q12h Diabetes Continue Accu-Cheks with sliding scale insulin Required 1 units of regular insulin in the last 24 hours tobacco prevention health educator consulted Consider oral hypoglycemics metformin 2000 ADA diet Polysubstance abuse Patient admits to marijuana, Dilaudid, cocaine, methamphetamine drug use. UDS positive for cocaine and methamphetamine Patient counseled on cessation Malnutrition Prealbumin 9, continue to follow monthly Consult dietary for recommendations, who recommended 2000-calorie ADA diet with Glucerna shakes 3 times a day Added nutritional supplement to each meal Anxiety: Xanax 0.25mg PRN, Zoloft 50 mg po daily DVT prophylaxis: Lovenox No change in present treatment plan Discharge Planning Discharge planning per case management, likely discharge after antibiotics complete on 09/03/16 Jalil Gupta Aug 25, 2016 11:16
[2016-08-25] MEDS: SODIUM CHLORIDE 0.9% IV SCH (12:38)
[2016-08-25] MEDS: DAPTOMYCIN IV SCH (12:38)
[2016-08-25] MEDS: SODIUM CHLORIDE 0.9% FLUSH 5 ML FLUSH FLUSH SCH ×2 (12:39→20:27)
[2016-08-25] MEDS: ENOXAPARIN SODIUM 40 MG/0.4 ML SYRINGE SQ SCH (13:53)
[2016-08-25 20:00] VITALS: BP 115/64; PULSE 83; RESP 16; TEMP 98.1; O2SAT 96
[2016-08-25] MEDS: ALPRAZolam 0.25 MG TAB PO PRN (22:49)
[2016-08-26] MEDS: INSULIN ASPART SUPPLEMENTAL SCALE SQ SCH ×4 (06:24→20:50)
[2016-08-26 07:30] VITALS: O2SAT 97
[2016-08-26 08:00] VITALS: BP 101/65; PULSE 82; RESP 20; TEMP 96; O2SAT 97
[2016-08-26] MEDS: ASPIRIN EC 81 MG TABEC PO SCH (09:22)
[2016-08-26] MEDS: ALPRAZolam 0.25 MG TAB PO PRN ×2 (09:22→22:16)
[2016-08-26] MEDS: POTASSIUM CHLORIDE 10 MEQ CONTROLLED RELEASE TAB PO SCH (09:22)
[2016-08-26] MEDS: LISINOPRIL 5 MG TAB PO SCH (09:22)
[2016-08-26] MEDS: SERTRALINE HCL 50 MG TAB PO SCH (09:22)
[2016-08-26] MEDS: SODIUM CHLORIDE 0.9% FLUSH 5 ML FLUSH FLUSH SCH ×2 (09:23→20:51)
[2016-08-26] MEDS: FUROSEMIDE 20 MG TAB PO SCH (09:23)
[2016-08-26] MEDS: CARVEDILOL 3.125 MG TAB PO SCH ×2 (09:23→20:50)
--- NOTE | 2016-08-26 12:24 | HHI.PR ---
Subjective Remarks Follow-up for bacteremia, CHF. Patient states he had some shortness of breath last night but is breathing better now. He states he is "antsy" but took some Xanax this morning. Still has pleuritic pain which is chronic. He has not required any further oxygen use. Objective Vitals Vital Signs Date Time Temp Pulse Resp B/P Pulse Ox O2 Delivery O2 Flow Rate FiO2 08/26/16 08:00 96.0 82 20 101/65 97 08/26/16 07:30 97 08/25/16 20:10 21 08/25/16 20:00 98.1 83 16 115/64 96 I/O 08/25/16 08/25/16 08/25/16 08/26/16 08/26/16 08/26/16 07:00 15:00 23:00 07:00 15:00 23:00 Intake Total 220 ml 720 ml 476 ml 336 ml Output Total 950 ml 1000 ml 875 ml 700 ml Balance -730 ml -280 ml -399 ml -364 ml Intake Oral 220 ml 720 ml 476 ml 336 ml Output Urine Total 950 ml 1000 ml 875 ml 700 ml # Voids 0 # Bowel Movements 0 0 Result Diagram: 08/22/1670408/22/16704 Objective Remarks GENERAL: Well-nourished, well developed patient no apparent distress. CARDIOVASCULAR: Regular rate and rhythm. RESPIRATORY: No accessory muscle use. CTAB. Breath sounds less diminished over RLL. GASTROINTESTINAL: Abdomen soft, nontender, nondistended. MUSCULOSKELETAL: No lower extremity edema bilaterally. NEUROLOGICAL: Awake and alert. Normal speech. PSYCHIATRIC: Appropriate mood and affect. Urinary Catheter: No Vascular Central Line Catheter: No A/P Assessment and Plan Bacteremia, MSSA Patient high risk due to IV drug use, previous spine osteomyelitis, possible endocarditis, spine hardware infection status post removal. Echocardiogram was performed which did not indicate any abnormalities or vegetations Blood cultures with one set positive with staph coag negative, negative cultures since 07/23/16 Infectious disease was consulted and followed the patient with recommendations to include: Daptomycin with stop date 09/03/16 Labs improved on 08/22. CBC, CMP, CPK level weekly, next labs ordered for 08/29. *On-call infectious disease consult the last week of treatment. *Recommend MRI of spine to see status of fluid collections prior to discharge. Pain control; need to continue to adjust every 5-7 days until off pain medicine prior to discharge Tylenol 650 mg every 4 hours as needed for pain 1-5 Oxycodone 5 mg every 12 hours as needed for pain 6-10 (last adjusted 08/20) Heating pad for chest and back pain Left wrist abscesses, likely from IV drug use I&D was performed Cultures 07/23 indicates MRSA Fungal cultures negative History of previous back surgery Status post removal of hardware secondary to previous MSSA infection MRI of the spine indicates elongated fluid collections in the posterior paraspinous soft tissue on the right and left without MRI features convincing for abscess these are presumed seromas and or old hematomas. No evidence of osteomyelitis Urinary tract infection Staph aureus on 07/21; possible translocation from staph bacteremia Acute renal failure superimposed on chronic kidney disease stage III Likely secondary to diuresis, vancomycin Nephrology consulted: appreciate recommendations. Renal US unremarkable: no evidence for hydronephrosis. Posterior bladder wall thickening or dependent debris. MILLER again on 08/13 due to diuresis but Cr now wnl. BUN elevated at 30 on 08/22. Chronic systolic congestive heart failure BNP on admission was significantly elevated. Echocardiogram shows systolic function severely reduced, ejection fraction 15- 20%. ACS evaluation negative Cardiology consulted and made recommendations, nonischemic cardiomyopathy. Okay to discharge from cardiology standpoint Nuclear stress test showing ventriculomegaly with large fixed perfusion abnormality and no evidence of stress-induced reversible abnormalities. Severe global hypokinesia with 14% ejection fraction. Continue Medications: Lasix 20 mg po daily KCL 10meq po daily Aspirin 81mg daily Lisinopril 5 mg po daily Coreg 3.125 mg po q12h PT evaluated patient for deconditioning; states he may benefit from cardiopulmonary rehab. CHF exacerbation started on 08/12 which is now resolved s/p IV Lasix. Oxygen saturation is 97% on room air. Patient no longer requires oxygen. He has episodes of dyspnea but is generally improved, back to baseline. Diabetes: [id number] this morning. Hemoglobin A1c 8.6. Continue Accu-Checks with sliding scale insulin staff pharmacist consulted and note reviewed. Consider oral hypoglycemics, metformin. I discussed starting metformin with patient, but he states he does not like taking medications stating he was on metformin 1000 mg twice daily in addition to cholesterol and antihypertensive medications in the past. He was informed of the risks of not controlling his diabetes. I will hold off on starting metformin at this point due to patient's lack of desire to start treatment. 1999 ADA diet Polysubstance abuse Patient admits to marijuana, Dilaudid, cocaine, methamphetamine drug use. UDS positive for cocaine and methamphetamine Patient counseled on cessation Malnutrition Prealbumin 9, continue to follow monthly Dietitian following, recommends: diet Glucerna Shakes bid Double Protein w/meals Provide one serving of peanut butter and/or cheese w/meals Anxiety: Xanax 0.25mg PRN, Zoloft 50 mg po daily DVT prophylaxis: Lovenox Discharge Planning D/c when antibiotics completed. CM following. Yazmin Patino Aug 26, 2016 12:24 Yazmin Patino Aug 26, 2016 12:24
[2016-08-26] MEDS: DAPTOMYCIN IV SCH (12:29)
[2016-08-26] MEDS: SODIUM CHLORIDE 0.9% IV SCH (12:29)
[2016-08-26] MEDS: ENOXAPARIN SODIUM 40 MG/0.4 ML SYRINGE SQ SCH (12:29)
[2016-08-26 20:00] VITALS: BP 112/71; PULSE 84; RESP 20; TEMP 97.7; O2SAT 97
[2016-08-27] MEDS: INSULIN ASPART SUPPLEMENTAL SCALE SQ SCH ×4 (07:00→21:00)
[2016-08-27] MEDS: CARVEDILOL 3.125 MG TAB PO SCH ×2 (07:59→21:00)
[2016-08-27] MEDS: POTASSIUM CHLORIDE 10 MEQ CONTROLLED RELEASE TAB PO SCH (07:59)
[2016-08-27] MEDS: LISINOPRIL 5 MG TAB PO SCH (07:59)
[2016-08-27] MEDS: FUROSEMIDE 20 MG TAB PO SCH (07:59)
[2016-08-27] MEDS: ASPIRIN EC 81 MG TABEC PO SCH (07:59)
[2016-08-27] MEDS: SERTRALINE HCL 50 MG TAB PO SCH (08:00)
[2016-08-27 08:33] VITALS: BP 112/80; PULSE 85; RESP 15; TEMP 96.2; O2SAT 99
[2016-08-27] MEDS: SODIUM CHLORIDE 0.9% IV SCH (12:02)
[2016-08-27] MEDS: DAPTOMYCIN IV SCH (12:02)
[2016-08-27] MEDS: ENOXAPARIN SODIUM 40 MG/0.4 ML SYRINGE SQ SCH (12:02)
[2016-08-27] MEDS: SODIUM CHLORIDE 0.9% FLUSH 5 ML FLUSH FLUSH SCH ×2 (12:03→22:21)
--- NOTE | 2016-08-27 12:57 | HHI.PR ---
Subjective Remarks Follow-up for bacteremia. Dr. Davis informed me this morning that she added CK level as it was not checked on 08/22. Patient again admits to feeling antsy and states he had some shortness of breath earlier, likely from panic. Patient states he tries not to take the Xanax. Objective Vitals Vital Signs Date Time Temp Pulse Resp B/P Pulse Ox O2 Delivery O2 Flow Rate FiO2 08/27/16 08:33 96.2 85 15 112/80 99 08/26/16 20:00 97.7 84 20 112/71 97 08/26/16 20:00 97 21 I/O 08/26/16 08/26/16 08/26/16 08/27/16 08/27/16 08/27/16 07:00 15:00 23:00 07:00 15:00 23:00 Intake Total 336 ml 650 ml 380 ml 400 ml Output Total 700 ml 675 ml 275 ml 500 ml Balance -364 ml -25 ml 105 ml -100 ml Intake Oral 336 ml 650 ml 380 ml 400 ml Output Urine Total 700 ml 675 ml 275 ml 500 ml # Voids 0 1 # Bowel Movements 1 0 0 Objective Remarks GENERAL: Well-nourished, well developed patient no apparent distress. CARDIOVASCULAR: Regular rate and rhythm. RESPIRATORY: No accessory muscle use. CTAB. Breath sounds diminished over mid R lung, but improved over base. No rales. GASTROINTESTINAL: Abdomen soft, nontender, nondistended. MUSCULOSKELETAL: No lower extremity edema bilaterally. NEUROLOGICAL: Awake and alert. Normal speech. PSYCHIATRIC: Appropriate mood and affect. Urinary Catheter: No Vascular Central Line Catheter: No A/P Assessment and Plan Bacteremia, MSSA Patient high risk due to IV drug use, previous spine osteomyelitis, possible endocarditis, spine hardware infection status post removal. Echocardiogram was performed which did not indicate any abnormalities or vegetations Blood cultures with one set positive with staph coag negative, negative cultures since 07/23/16 Infectious disease was consulted and followed the patient with recommendations to include: Daptomycin with stop date 09/03/16 Labs improved on 08/22. CBC, CMP, CPK level weekly, next labs ordered for 08/29. CK level today normal. *On-call infectious disease consult the last week of treatment. *Recommend MRI of spine to see status of fluid collections prior to discharge. Pain control; need to continue to adjust every 5-7 days until off pain medicine prior to discharge Tylenol 650 mg every 4 hours as needed for pain 1-5 Oxycodone 5 mg every 12 hours as needed for pain 6-10. Patient has not used pain medication since 08/25; will change dosing to once daily prn use, but will soon discontinue. Heating pad for chest and back pain Left wrist abscesses, likely from IV drug use I&D was performed Cultures 07/23 indicates MRSA Fungal cultures negative History of previous back surgery Status post removal of hardware secondary to previous MSSA infection MRI of the spine indicates elongated fluid collections in the posterior paraspinous soft tissue on the right and left without MRI features convincing for abscess these are presumed seromas and or old hematomas. No evidence of osteomyelitis Urinary tract infection Staph aureus on 07/21; possible translocation from staph bacteremia Acute renal failure superimposed on chronic kidney disease stage III Likely secondary to diuresis, vancomycin Nephrology consulted: appreciate recommendations. Renal US unremarkable: no evidence for hydronephrosis. Posterior bladder wall thickening or dependent debris. MILLER again on 08/13 due to diuresis but Cr now wnl. BUN elevated at 30 on 08/22. Chronic systolic congestive heart failure BNP on admission was significantly elevated. Echocardiogram shows systolic function severely reduced, ejection fraction 15- 20%. ACS evaluation negative Cardiology consulted and made recommendations, nonischemic cardiomyopathy. Okay to discharge from cardiology standpoint Nuclear stress test showing ventriculomegaly with large fixed perfusion abnormality and no evidence of stress-induced reversible abnormalities. Severe global hypokinesia with 14% ejection fraction. Continue Medications: Lasix 20 mg po daily KCL 10meq po daily Aspirin 81mg daily Lisinopril 5 mg po daily Coreg 3.125 mg po q12h PT evaluated patient for deconditioning; states he may benefit from cardiopulmonary rehab. CHF exacerbation started on 08/12 which is now resolved s/p IV Lasix. Patient no longer requires oxygen. He has episodes of dyspnea but is generally improved , back to baseline. Diabetes: [id number] this morning. Hemoglobin A1c 8.6. Continue Accu-Checks with sliding scale insulin coding educator consulted and note reviewed. Consider oral hypoglycemics, metformin. I discussed starting metformin with patient, but he states he does not like taking medications stating he was on metformin 1000 mg twice daily in addition to cholesterol and antihypertensive medications in the past. He was informed of the risks of not controlling his diabetes. I will hold off on starting metformin at this point due to patient's lack of desire to start treatment. 1999 ADA diet Polysubstance abuse Patient admits to marijuana, Dilaudid, cocaine, methamphetamine drug use. UDS positive for cocaine and methamphetamine Patient counseled on cessation Malnutrition Prealbumin 9, continue to follow monthly Dietitian following, recommends: diet Glucerna Shakes bid Double Protein w/meals Provide one serving of peanut butter and/or cheese w/meals Anxiety: Xanax 0.25mg tid prn, Zoloft 50 mg po daily DVT prophylaxis: Lovenox Discharge Planning D/c when antibiotics completed. CM following. Yazmin Patino Aug 27, 2016 12:57
[2016-08-27 14:00] VITALS: O2SAT 97
[2016-08-27] MEDS: ALPRAZolam 0.25 MG TAB PO PRN (17:09)
[2016-08-27 20:00] VITALS: BP 103/67; PULSE 87; RESP 16; TEMP 96; O2SAT 95
[2016-08-27 20:24] VITALS: O2SAT 97
[2016-08-28] MEDS: INSULIN ASPART SUPPLEMENTAL SCALE SQ SCH ×4 (05:52→20:25)
[2016-08-28 08:41] VITALS: BP 107/67; PULSE 89; RESP 18; TEMP 95.8; O2SAT 96
[2016-08-28] MEDS: SODIUM CHLORIDE 0.9% FLUSH 5 ML FLUSH FLUSH SCH ×2 (09:49→20:24)
[2016-08-28] MEDS: CARVEDILOL 3.125 MG TAB PO SCH ×2 (09:50→20:24)
[2016-08-28] MEDS: POTASSIUM CHLORIDE 10 MEQ CONTROLLED RELEASE TAB PO SCH (09:50)
[2016-08-28] MEDS: SERTRALINE HCL 50 MG TAB PO SCH (09:50)
[2016-08-28] MEDS: ASPIRIN EC 81 MG TABEC PO SCH (09:50)
[2016-08-28] MEDS: FUROSEMIDE 20 MG TAB PO SCH (09:50)
[2016-08-28] MEDS: LISINOPRIL 5 MG TAB PO SCH (09:50)
[2016-08-28 12:15] LABS: AUTOMATED NEUTROPHIL # 3.1 TH/MM3 (1.8-7.7); BASOPHIL % 0.9 % (0.0-2.0); EOSINOPHIL # 0.2 TH/MM3 (0-0.4); EOSINOPHIL % 3.8 % (0.0-4.0); HEMATOCRIT 43.9 % (39.0-51.0); HEMO FLAGS DIFF FINAL; LYMPH % 29.1 % (9.0-44.0); LYMPHOCYTE # 1.6 TH/MM3 (1.0-4.8); MEAN CORPUSCULAR HGB CONC 32.5 % (32.0-36.0); MONO % 9.5 % (0.0-8.0); NEUT % 56.7 % (16.0-70.0); PLATELET COUNT 239 TH/MM3 (150-450); RED BLOOD COUNT 5.29 MIL/MM3 (4.50-5.90); RED CELL DISTRIBUTION WIDTH 14.8 % (11.6-17.2); WHITE BLOOD COUNT 5.4 TH/MM3 (4.0-11.0)
[2016-08-28 12:22] LABS: CHLORIDE 101 MEQ/L (98-107); POTASSIUM 4.3 MEQ/L (3.5-5.1); SODIUM (NA) 139 MEQ/L (136-145)
[2016-08-28 12:26] LABS: ANION GAP 7 MEQ/L (5-15); BICARBONATE 30.6 MEQ/L (21.0-32.0); BLOOD UREA NITROGEN 29 MG/DL (7-18)
[2016-08-28 12:28] LABS: ALT (GPT) 44 U/L (12-78); AST (GOT) 39 U/L (15-37)
[2016-08-28 12:29] LABS: GLOMERULAR FILTRATION RATE 93 ML/MIN (>89)
[2016-08-28 12:30] LABS: TOTAL BILIRUBIN ADULT 0.4 MG/DL (0.2-1.0)
[2016-08-28 12:31] LABS: ALKALINE PHOSPHATASE 193 U/L (45-117)
[2016-08-28] MEDS: SODIUM CHLORIDE 0.9% IV SCH (12:49)
[2016-08-28] MEDS: ALPRAZolam 0.25 MG TAB PO PRN ×2 (12:49→20:24)
[2016-08-28] MEDS: ENOXAPARIN SODIUM 40 MG/0.4 ML SYRINGE SQ SCH (12:49)
[2016-08-28] MEDS: DAPTOMYCIN IV SCH (12:49)
--- NOTE | 2016-08-28 13:05 | HHI.PR ---
Subjective Remarks Follow-up for bacteremia, CHF. Patient denies any difficulty breathing. Patient was noted to have RUQ pain on exam, but he denies fevers or chills, nausea, vomiting, or diarrhea. Denies any pain with eating. States he has h/o gallstones. Objective Vitals Vital Signs Date Time Temp Pulse Resp B/P Pulse Ox O2 Delivery O2 Flow Rate FiO2 08/28/16 08:41 95.8 89 18 107/67 96 08/27/16 20:24 97 08/27/16 20:00 96.0 87 16 103/67 95 08/27/16 14:00 97 21 I/O 08/27/16 08/27/16 08/27/16 08/28/16 08/28/16 08/28/16 07:00 15:00 23:00 07:00 15:00 23:00 Intake Total 400 ml 520 ml 480 ml 220 ml Output Total 500 ml 750 ml 200 ml 900 ml Balance -100 ml -230 ml 280 ml -680 ml Intake Oral 400 ml 520 ml 480 ml 220 ml IV Total 0 ml 0 ml Output Urine Total 500 ml 750 ml 200 ml 900 ml # Voids 1 # Bowel Movements 0 0 0 Result Diagram: 08/28/16 1200 08/28/16 1200 Objective Remarks GENERAL: Well-nourished, well developed patient in no apparent distress. CARDIOVASCULAR: Regular rate and rhythm. RESPIRATORY: No accessory muscle use. RR normal. GASTROINTESTINAL: Normoactive bowel sounds. Tender over RUQ and epigastric region. Mild guarding. Equivocal Mack's test. Abdomen soft, nondistended. No hepatomegaly. MUSCULOSKELETAL: No lower extremity edema bilaterally. NEUROLOGICAL: Awake and alert. Normal speech. PSYCHIATRIC: Appropriate mood and affect. Urinary Catheter: No Vascular Central Line Catheter: No A/P Problem List: (1) Elevated lipase ICD Code: R74.8 Status: Acute (2) RUQ pain ICD Code: R10.11 Status: Acute Assessment and Plan RUQ and epigastric pain: Patient was found to have pain on exam although did not note it prior. No other associated symptoms. Afebrile. -CBC today with normal WBC count. -AST stable at 39. ALT normal. Alkaline phosphatase increased to 193 from 181 on 08/22, but patient appears to have chronically elevated level since July. -Liver US on 08/02/16 shows evidence of cirrhosis and states gallbladder has been surgically removed. Although there is possibility of gallstone in CBD despite GB removal, LFTs are relatively stable; alkaline phosphatase increased only mildly and pain is not severe. -Lipase mildly elevated at 540. Lipase 94 on 07/21. Will start patient on Protonix 40 mg po daily and order lipid profile in regards to possible very mild pancreatitis. Patient has no issues with eating. Will add low fat restriction to patient's current diet. -Monitor clinically for any worsening. -Discussed above with Dr. Concepcion. Bacteremia, MSSA Patient high risk due to IV drug use, previous spine osteomyelitis, possible endocarditis, spine hardware infection status post removal. Echocardiogram was performed which did not indicate any abnormalities or vegetations Blood cultures with one set positive with staph coag negative, negative cultures since 07/23/16 Infectious disease was consulted and followed the patient with recommendations to include: Daptomycin with stop date 09/03/16 CBC, CMP, CPK level weekly, next labs ordered for 09/04/16. *On-call infectious disease consult the last week of treatment. *Recommend MRI of spine to see status of fluid collections prior to discharge. Pain control; need to continue to adjust every 5-7 days until off pain medicine prior to discharge Tylenol 650 mg every 4 hours as needed for pain 1-5 Oxycodone 5 mg every daily as needed for pain 6-10 (last adjusted on 08/27). Heating pad for chest and back pain Left wrist abscesses, likely from IV drug use I&D was performed Cultures 07/23 indicates MRSA Fungal cultures negative History of previous back surgery Status post removal of hardware secondary to previous MSSA infection MRI of the spine indicates elongated fluid collections in the posterior paraspinous soft tissue on the right and left without MRI features convincing for abscess these are presumed seromas and or old hematomas. No evidence of osteomyelitis Urinary tract infection Staph aureus on 07/21; possible translocation from staph bacteremia Acute renal failure superimposed on chronic kidney disease stage III Likely secondary to diuresis, vancomycin Nephrology consulted: appreciate recommendations. Renal US unremarkable: no evidence for hydronephrosis. Posterior bladder wall thickening or dependent debris. MILLER again on 08/13 due to diuresis but Cr now wnl. BUN slightly improved from prior at 29 on labs today. Chronic systolic congestive heart failure BNP on admission was significantly elevated. Echocardiogram shows systolic function severely reduced, ejection fraction 15- 20%. ACS evaluation negative Cardiology consulted and made recommendations, nonischemic cardiomyopathy. Okay to discharge from cardiology standpoint Nuclear stress test showing ventriculomegaly with large fixed perfusion abnormality and no evidence of stress-induced reversible abnormalities. Severe global hypokinesia with 14% ejection fraction. Continue Medications: Lasix 20 mg po daily KCL 10meq po daily Aspirin 81mg daily Lisinopril 5 mg po daily Coreg 3.125 mg po q12h PT evaluated patient for deconditioning; states he may benefit from cardiopulmonary rehab. CHF exacerbation started on 08/12 which is now resolved s/p IV Lasix. Patient no longer requires oxygen. He has episodes of dyspnea but is generally improved , back to baseline. Diabetes: BGL 97 this morning. Hemoglobin A1c 8.6. Continue Accu-Checks with sliding scale insulin software educator consulted and note reviewed. Consider oral hypoglycemics, metformin. I discussed starting metformin with patient, but he states he does not like taking medications stating he was on metformin 1000 mg twice daily in addition to cholesterol and antihypertensive medications in the past. He was informed of the risks of not controlling his diabetes. I will hold off on starting metformin at this point due to patient's lack of desire to start treatment. 1999 ADA diet Polysubstance abuse Patient admits to marijuana, Dilaudid, cocaine, methamphetamine drug use. UDS positive for cocaine and methamphetamine Patient counseled on cessation Malnutrition Prealbumin 9, continue to follow monthly Dietitian following, recommends: diet Glucerna Shakes bid Double Protein w/meals Provide one serving of peanut butter and/or cheese w/meals Anxiety: Xanax 0.25mg tid prn, Zoloft 50 mg po daily DVT prophylaxis: Lovenox Discharge Planning D/c when antibiotics completed. CM following. Yazmin Patino Aug 28, 2016 13:05
[2016-08-28] MEDS: PANTOPRAZOLE SOD 40 MG DELAYED RELEASE TAB PO SCH (14:00)
[2016-08-28 17:48] VITALS: O2SAT 97
[2016-08-28 20:00] VITALS: BP 94/73; PULSE 80; RESP 16; TEMP 98.1; O2SAT 97
[2016-08-28 20:43] VITALS: O2SAT 97
[2016-08-29] MEDS: INSULIN ASPART SUPPLEMENTAL SCALE SQ SCH ×4 (06:16→21:00)
[2016-08-29 08:00] VITALS: BP 122/84; PULSE 86; RESP 18; TEMP 97; O2SAT 98
[2016-08-29] MEDS: FUROSEMIDE 20 MG TAB PO SCH (08:31)
[2016-08-29] MEDS: LISINOPRIL 5 MG TAB PO SCH (08:31)
[2016-08-29] MEDS: POTASSIUM CHLORIDE 10 MEQ CONTROLLED RELEASE TAB PO SCH (08:31)
[2016-08-29] MEDS: PANTOPRAZOLE SOD 40 MG DELAYED RELEASE TAB PO SCH (08:31)
[2016-08-29] MEDS: CARVEDILOL 3.125 MG TAB PO SCH ×2 (08:31→21:00)
[2016-08-29] MEDS: SERTRALINE HCL 50 MG TAB PO SCH (08:32)
[2016-08-29] MEDS: ASPIRIN EC 81 MG TABEC PO SCH (08:32)
--- NOTE | 2016-08-29 09:16 | HHI.PR ---
Subjective Remarks Follow-up for bacteremia, CHF, abdominal pain. Patient admits to /10 sharp intermittent right upper quadrant pain. He states his last BM was yesterday and was normal, not hard. He denies any fevers or chills. Denies any nausea, vomiting, or postprandial pain. Denies any shortness of breath. Objective Vitals Vital Signs Date Time Temp Pulse Resp B/P Pulse Ox O2 Delivery O2 Flow Rate FiO2 08/29/16 08:00 97.0 86 18 122/84 98 08/28/16 20:43 97 21 08/28/16 20:00 98.1 80 16 94/73 97 08/28/16 17:48 97 21 I/O 08/28/16 08/28/16 08/28/16 08/29/16 08/29/16 08/29/16 07:00 15:00 23:00 07:00 15:00 23:00 Intake Total 220 ml 1040 ml 240 ml Output Total 900 ml 850 ml 400 ml Balance -680 ml 190 ml -160 ml Intake Oral 220 ml 1040 ml 240 ml IV Total 0 ml Output Urine Total 900 ml 850 ml 400 ml # Voids 2 # Bowel Movements 0 1 0 Result Diagram: 08/28/16 1200 08/28/16 1200 Objective Remarks GENERAL: Well-nourished, well developed patient in no apparent distress. CARDIOVASCULAR: Regular rate and rhythm. RESPIRATORY: No accessory muscle use. CTAB. Diminished breath sounds over right lower lobe. GASTROINTESTINAL: Normoactive bowel sounds 4. Abdomen soft, nondistended. Tender over RUQ and epigastric region. Patient had some guarding over the right lower quadrant, but stated pain was more so in RUQ. Negative rebound tenderness. NEUROLOGICAL: Awake and alert. Normal speech. PSYCHIATRIC: Appropriate mood and affect. Urinary Catheter: No Vascular Central Line Catheter: No A/P Problem List: (1) Elevated lipase ICD Code: R74.8 Status: Acute (2) RUQ pain ICD Code: R10.11 Status: Acute Assessment and Plan RUQ and epigastric pain: Pain persists today. Vitals good. -Repeat CBC today with normal WBC count. -Repeat CMP reviewed. AST and ALT wnl. Alkaline phosphatase improved from yesterday. -Repeat Lipase stable at 545. Lipase 94 on 07/21. Continue Protonix and low fat diet. -Liver US on 08/02/16 shows evidence of cirrhosis and states gallbladder has been surgically removed. -Lipid profile with LDL 123, HDL 72.1, and triglycerides 113. According to EMR patient was on cholesterol medication in the past but came off of it due to weight loss. EMR also indicates the patient does have a history of TIA which would indicate that he should strive for a lower LDL, but due to cirrhosis will avoid statins. Low cholesterol diet started. -Due to persistence of pain today, will obtain CT abdomen/pelvis with contrast. Patient could have choledocholithiasis despite GB removal. -Discussed above with Dr. Concepcion. Bacteremia, MSSA Patient high risk due to IV drug use, previous spine osteomyelitis, possible endocarditis, spine hardware infection status post removal. Echocardiogram was performed which did not indicate any abnormalities or vegetations Blood cultures with one set positive with staph coag negative, negative cultures since 07/23/16 Infectious disease was consulted and followed the patient with recommendations to include: Daptomycin with stop date 09/03/16 CBC, CMP, CPK level weekly, next labs ordered for 09/03/16. *On-call infectious disease consult the last week of treatment. *Recommend MRI of spine to see status of fluid collections prior to discharge. Pain control; need to continue to adjust every 5-7 days until off pain medicine prior to discharge Tylenol 650 mg every 4 hours as needed for pain 1-5 Oxycodone 5 mg every daily as needed for pain 6-10 (last adjusted on 08/27). Heating pad for chest and back pain Left wrist abscesses, likely from IV drug use I&D was performed Cultures 07/23 indicates MRSA Fungal cultures negative History of previous back surgery Status post removal of hardware secondary to previous MSSA infection MRI of the spine indicates elongated fluid collections in the posterior paraspinous soft tissue on the right and left without MRI features convincing for abscess these are presumed seromas and or old hematomas. No evidence of osteomyelitis Urinary tract infection Staph aureus on 07/21; possible translocation from staph bacteremia Acute renal failure superimposed on chronic kidney disease stage III Likely secondary to diuresis, vancomycin Nephrology consulted: appreciate recommendations. Renal US unremarkable: no evidence for hydronephrosis. Posterior bladder wall thickening or dependent debris. MILLER again on 08/13 due to diuresis but Cr now wnl. BUN slightly improved from prior at 29 on labs today. Chronic systolic congestive heart failure BNP on admission was significantly elevated. Echocardiogram shows systolic function severely reduced, ejection fraction 15- 20%. ACS evaluation negative Cardiology consulted and made recommendations, nonischemic cardiomyopathy. Okay to discharge from cardiology standpoint Nuclear stress test showing ventriculomegaly with large fixed perfusion abnormality and no evidence of stress-induced reversible abnormalities. Severe global hypokinesia with 14% ejection fraction. Continue Medications: Lasix 20 mg po daily KCL 10meq po daily Aspirin 81mg daily Lisinopril 5 mg po daily Coreg 3.125 mg po q12h PT evaluated patient for deconditioning; states he may benefit from cardiopulmonary rehab. CHF exacerbation started on 08/12 which is now resolved s/p IV Lasix. Patient no longer requires oxygen. He has episodes of dyspnea but is generally improved , back to baseline. Diabetes: BGL 129 this morning. Hemoglobin A1c 8.6. Continue Accu-Checks with sliding scale insulin family educator consulted and note reviewed. Consider oral hypoglycemics, metformin. I discussed starting metformin with patient, but he states he does not like taking medications stating he was on metformin 1000 mg twice daily in addition to cholesterol and antihypertensive medications in the past. He was informed of the risks of not controlling his diabetes. I will hold off on starting metformin at this point due to patient's lack of desire to start treatment. Will re-address prior to discharge. 1999 ADA diet Polysubstance abuse Patient admits to marijuana, Dilaudid, cocaine, methamphetamine drug use. UDS positive for cocaine and methamphetamine Patient counseled on cessation Malnutrition Prealbumin 9, continue to follow monthly Dietitian following, recommends: diet Glucerna Shakes bid Double Protein w/meals Provide one serving of peanut butter and/or cheese w/meals Anxiety: Xanax 0.25mg tid prn, Zoloft 50 mg po daily DVT prophylaxis: Lovenox Discharge Planning D/c when antibiotics completed. CM following. Yazmin Patino Aug 29, 2016 09:16
[2016-08-29 09:33] LABS: AUTOMATED NEUTROPHIL # 2.5 TH/MM3 (1.8-7.7); BASOPHIL # 0.1 TH/MM3 (0-0.2); EOSINOPHIL # 0.2 TH/MM3 (0-0.4); EOSINOPHIL % 3.8 % (0.0-4.0); HEMATOCRIT 44.7 % (39.0-51.0); HEMO FLAGS DIFF FINAL; LYMPHOCYTE # 2.4 TH/MM3 (1.0-4.8); MEAN CELL VOLUME 83.9 FL (80.0-100.0); MEAN CORPUSCULAR HEMOGLOBIN 26.7 PG (27.0-34.0); MEAN CORPUSCULAR HGB CONC 31.9 % (32.0-36.0); MONO % 9.8 % (0.0-8.0); NEUT % 44.4 % (16.0-70.0); PLATELET COUNT 220 TH/MM3 (150-450); RED BLOOD COUNT 5.32 MIL/MM3 (4.50-5.90); RED CELL DISTRIBUTION WIDTH 15.3 % (11.6-17.2); WHITE BLOOD COUNT 5.9 TH/MM3 (4.0-11.0)
[2016-08-29 10:27] LABS: HDL CHOLESTEROL 72.1 MG/DL (40.0-60.0); LDL CHOLESTEROL 123 MG/DL (0-99)
[2016-08-29 10:43] LABS: ALKALINE PHOSPHATASE 171 U/L (45-117); ALT (GPT) 42 U/L (12-78); ANION GAP 10 MEQ/L (5-15); AST (GOT) 37 U/L (15-37); BICARBONATE 27.3 MEQ/L (21.0-32.0); BLOOD UREA NITROGEN 32 MG/DL (7-18); CHLORIDE 101 MEQ/L (98-107); GLOMERULAR FILTRATION RATE 68 ML/MIN (>89); POTASSIUM 4.4 MEQ/L (3.5-5.1); SODIUM (NA) 138 MEQ/L (136-145); TOTAL BILIRUBIN ADULT 0.4 MG/DL (0.2-1.0)
[2016-08-29 11:18] VITALS: O2SAT 98
[2016-08-29] MEDS: SODIUM CHLORIDE 0.9% FLUSH 5 ML FLUSH FLUSH SCH ×2 (12:06→12:26)
[2016-08-29] MEDS: DAPTOMYCIN IV SCH (12:26)
[2016-08-29] MEDS: SODIUM CHLORIDE 0.9% IV SCH (12:26)
[2016-08-29] MEDS: ENOXAPARIN SODIUM 40 MG/0.4 ML SYRINGE SQ SCH (14:26)
[2016-08-29] MEDS ORDERED: DIATRIZOATE MEGLUM/DIATRIZOATE SOD 9 ML CUP PO ONE (18:09)
[2016-08-29 20:43] VITALS: BP 107/72; PULSE 81; RESP 16; TEMP 97.5; O2SAT 100
[2016-08-29] MEDS ORDERED: IOHEXOL 350 MG/ML 10 ML VIAL (for RAD DIAG) IV ONE (21:31)
[2016-08-29 21:41] VITALS: O2SAT 98
--- NOTE | 2016-08-29 21:52 | RADHPO ---
EXAM DATE/TIME: 08/29/2016 21:09 [place] COMPARISON: CTA THORACIC ABDOMINAL AORTA W 3D RECON, May 17, 2015, 15:49. CT ABDOMEN & PELVIS W CONTRAST, J anuary 2016, 17:42. INDICATIONS : Right sided abdominal pain. IV CONTRAST: 95 cc Omnipaque 350 (iohexol) IV ORAL CONTRAST: Prescribed oral contrast ingested. RADIATION DOSE: 7.29 CTDIvol (mGy) MEDICAL HISTORY : Myocardial infarction. Hypertension. Diabetes. SURGICAL HISTORY : Appendectomy. Cholecystectomy. ENCOUNTER: Initial ACUITY: 1 day PAIN SCALE: 7/10 LOCATION: Right abdomen. TECHNIQUE: Volumetric scanning of the abdomen and pelvis was performed. Using automated exposure control and ad justment of the mA and/or kV according to patient size, radiation dose was kept as low as reasonably achievable to obtain optimal diagnostic quality images. FINDINGS: LOWER LUNGS: The visualized lower lungs are clear. LIVER: Mild fatty infiltrated. Previous cholecystectomy. Spilled gallstones are again noted, unchanged. SPLEEN: Normal size without lesion. PANCREAS: Within normal limits. KIDNEYS: There is a 2 mm stone of the left ureterovesical junction causing minimal hydronephrosis/hydroureter. Two 2 mm stones right upper pole. There is a 3 mm stone in the left lower pole. These are all nonobs tructing. Right kidney is slightly small, chronic. There is patchy cortical thinning/scarring of both kidneys, especially on the right, chronic. ADRENAL GLANDS: Within normal limits. VASCULAR: There is no aortic aneurysm. BOWEL/MESENTERY: Moderate sigmoid colon diverticulosis. No diverticulitis or other acute inflammatory changes are seen . No bowel obstruction. ABDOMINAL WALL: Within normal limits. RETROPERITONEUM: There is no lymphadenopathy. BLADDER: No wall thickening or mass. REPRODUCTIVE: Within normal limits. INGUINAL: There is no lymphadenopathy or hernia. MUSCULOSKELETAL: No acute bony abnormality demonstrated. Degenerative changes are seen in the spine. There are lower l umbar surgical changes. CONCLUSION: 1. 2 mm minimally obstructing stone of the left ureterovesical junction. 2. Sub-4 mm nonobstructing bilateral nephrolithiasis. 3. Patchy cortical thinning/scarring of the kidneys, right more so than left and chronic, not signifi cantly changed. 4. Fatty liver. 5. Previous cholecystectomy. Multiple small spilled gallstones are again noted, chronic and unchanged . Most are in the gallbladder fossa region and along the anterior and inferior margin of the liver. S ome are also in the pelvic cavity. 6. Diverticulosis of the sigmoid colon but no acute inflammatory changes. Kwesi Hinojosa MD on August 29, 2016 at 21:41 Board Certified Radiologist. This report was verified electronically.
[2016-08-29] MEDS: ALPRAZolam 0.25 MG TAB PO PRN (22:09)
[2016-08-30] MEDS: INSULIN ASPART SUPPLEMENTAL SCALE SQ SCH ×4 (06:08→20:47)
[2016-08-30 08:00] VITALS: BP 115/83; PULSE 85; RESP 20; TEMP 97; O2SAT 100; O2SAT 95
[2016-08-30] MEDS: FUROSEMIDE 20 MG TAB PO SCH (09:02)
[2016-08-30] MEDS: POTASSIUM CHLORIDE 10 MEQ CONTROLLED RELEASE TAB PO SCH (09:02)
[2016-08-30] MEDS: CARVEDILOL 3.125 MG TAB PO SCH ×2 (09:02→20:47)
[2016-08-30] MEDS: LISINOPRIL 5 MG TAB PO SCH (09:02)
[2016-08-30] MEDS: SERTRALINE HCL 50 MG TAB PO SCH (09:02)
[2016-08-30] MEDS: ASPIRIN EC 81 MG TABEC PO SCH (09:02)
[2016-08-30] MEDS: PANTOPRAZOLE SOD 40 MG DELAYED RELEASE TAB PO SCH (09:02)
[2016-08-30] MEDS: SODIUM CHLORIDE 0.9% FLUSH 5 ML FLUSH FLUSH SCH ×2 (09:03→20:47)
[2016-08-30] MEDS ORDERED: LACTULOSE SYRUP 20 GM/30 ML CUP PO PRN (12:00)
[2016-08-30] MEDS ORDERED: LACTULOSE SYRUP 20 GM/30 ML CUP PO ONE (13:00)
[2016-08-30] MEDS: DAPTOMYCIN IV SCH (13:05)
[2016-08-30] MEDS: SODIUM CHLORIDE 0.9% IV SCH (13:05)
[2016-08-30] MEDS: ENOXAPARIN SODIUM 40 MG/0.4 ML SYRINGE SQ SCH (13:53)
--- NOTE | 2016-08-30 16:09 | HHI.PR ---
Subjective Remarks Patient evaluated this morning. Follow-up for abdominal pain. Patient states his pain is a 5-6/10 now constant over the right upper quadrant. He states he did have a bowel movement today which was good in size and denies it being hard. He denies any fevers, nausea, vomiting, or diarrhea. Complains again about limited diet. Objective Vitals Vital Signs Date Time Temp Pulse Resp B/P Pulse Ox O2 Delivery O2 Flow Rate FiO2 08/30/16 11:26 18 08/30/16 08:00 97.0 85 20 115/83 100 08/30/16 08:00 95 08/29/16 21:41 98 21 08/29/16 20:43 97.5 81 16 107/72 100 I/O 08/29/16 08/29/16 08/29/16 08/30/16 08/30/16 08/30/16 07:00 15:00 23:00 07:00 15:00 23:00 Intake Total 240 ml 420 ml 480 ml 420 ml Output Total 400 ml 1150 ml 800 ml 925 ml Balance -160 ml -730 ml -320 ml -505 ml Intake Oral 240 ml 420 ml 480 ml 420 ml Output Urine Total 400 ml 1150 ml 800 ml 925 ml # Bowel Movements 0 1 Result Diagram: 08/29/16 0515 08/29/16 0515 Imaging Last Impressions Abdomen/Pelvis CT 08/29/16 0000 Signed Impressions: Service Date/Time: Monday, August 29, 2016 21:09 - CONCLUSION: 1. 2 mm minimally obstructing stone of the left ureterovesical junction. 2. Sub-4 mm nonobstructing bilateral nephrolithiasis. 3. Patchy cortical thinning/scarring of the kidneys, right more so than left and chronic, not significantly changed. 4. Fatty liver. 5. Previous cholecystectomy. Multiple small spilled gallstones are again noted, chronic and unchanged. Most are in the gallbladder fossa region and along the anterior and inferior margin of the liver. Some are also in the pelvic cavity. 6. Diverticulosis of the sigmoid colon but no acute inflammatory changes. Kwesi Hinojosa MD Chest X-Ray 08/13/16 0600 Signed Impressions: Service Date/Time: Saturday, August 13, 2016 06:21 - CONCLUSION: No significant change has occurred. Duglas Celis MD Liver Ultrasound 08/02/16 0000 Signed Impressions: Service Date/Time: Tuesday, August 02, 2016 08:13 - CONCLUSION: 1. The liver is heterogeneous and mildly lobular suggestive of hepatocellular disease such as cirrhosis. 2. There is a trace of fluid adjacent to the liver.. 3. The pancreas was not visualized. Robert Johnson MD Renal Ultrasound 07/31/16 1517 Signed Impressions: Service Date/Time: July 20:19 - CONCLUSION: No evidence of hydronephrosis. Posterior bladder wall thickening or dependent debris. Ascites. Kwesi Coleman MD Abscess Drainage X-Ray 07/26/16 0000 Signed Impressions: Service Date/Time: Tuesday, July 26, 2016 16:35 - CONCLUSION: Uncomplicated aspiration of complex fluid collections in the lower back bilaterally as detailed above. Nikos Kaur MD Soft Tissue Ultrasound 07/25/16 1834 Signed Impressions: Service Date/Time: Monday, July 25, 2016 23:13 - CONCLUSION: In the parasagittal lower back, deep to the subcutaneous tissues, there are bilateral mixed cystic and solid lesion which measure up to 6 cm in size. Kalyan Hayes MD Myocardial Perfusion Scan Nuc Med 07/25/16 0000 Signed Impressions: Service Date/Time: Monday, July 25, 2016 10:43 - CONCLUSION: Ventriculomegaly with large fixed perfusion abnormality and no evidence of stress-induced reversible abnormalities. Severe global hypokinesia with 14%% ejection fraction. RISK CATEGORY: High (>3%% Annual Mortality Rate) Brown Tejeda MD Lumbar Spine MRI 07/24/16 0000 Signed Impressions: Service Date/Time: July 18:25 - CONCLUSION: 1. Previous surgery at L4/L5 and L5/S1 with subsequent hardware removal. There are elongated fluid collections in the posterior paraspinous soft tissues on the right and left without MRI features convincing for abscess. These are presumably seromas or old hematomas. Also no evidence of osteomyelitis.. 2. Normal thecal sac and epidural space. 3. No foraminal or spinal stenosis at any level. 4. Mild bilateral facet osteoarthritis and nonspecific synovitis at L3/L4. Kwesi Hinojosa MD CT Angiography 07/21/16 0000 Signed Impressions: Service Date/Time: Thursday, July 21, 2016 11:06 - CONCLUSION: 1. No evidence of pulmonary embolism. 2. Bilateral effusions and left basilar atelectasis Amos Toledo MD Objective Remarks GENERAL: Well-nourished, well developed patient in no apparent distress. CARDIOVASCULAR: Regular rate and rhythm. RESPIRATORY: No accessory muscle use. CTAB. Diminished breath sounds over right lateral lower lobe. GASTROINTESTINAL: Normoactive bowel sounds 4. Abdomen soft, nondistended. Tender over RUQ and epigastric region. Tender over RLQ with some guarding, but negative rebound and negative Rovsing's test. NEUROLOGICAL: Awake and alert. Normal speech. PSYCHIATRIC: Appropriate mood and affect. Urinary Catheter: No Vascular Central Line Catheter: No A/P Problem List: (1) Elevated lipase ICD Code: R74.8 Status: Acute (2) RUQ pain ICD Code: R10.11 Status: Acute Assessment and Plan Abdominal pain: Primarily right upper quadrant and epigastric, but does have some right lower quadrant pain. -Repeat CBC today with normal WBC count. -Repeat CMP reviewed. AST and ALT wnl. Alkaline phosphatase improved from yesterday. -Repeat Lipase stable at 545. Lipase 94 on 07/21. Continue Protonix and low fat diet. -Liver US on 08/02/16 shows evidence of cirrhosis and states gallbladder has been surgically removed. -Lipid profile with LDL 123, HDL 72.1, and triglycerides 113. According to EMR patient was on cholesterol medication in the past but came off of it due to weight loss. EMR also indicates the patient does have a history of TIA which would indicate that he should strive for a lower LDL, but due to cirrhosis will avoid statins. Low cholesterol diet started. -Due to persistence of pain, CT abdomen/pelvis was performed yesterday with results as above. CT personally interpreted today by Dr. Concepcion and myself. Patient has significant amount of stool present which is likely causing pain as CT shows no acute process which would be causing R sided pain otherwise. Will order a dose of lactulose now, scheduled Mela-Colace, and prn Lactulose. Bacteremia, MSSA Patient high risk due to IV drug use, previous spine osteomyelitis, possible endocarditis, spine hardware infection status post removal. Echocardiogram was performed which did not indicate any abnormalities or vegetations Blood cultures with one set positive with staph coag negative, negative cultures since 07/23/16 Infectious disease was consulted and followed the patient with recommendations to include: Daptomycin with stop date 09/03/16 CBC, CMP, CPK level weekly, next labs ordered for 09/03/16. *On-call infectious disease consult the last week of treatment. *Recommend MRI of spine to see status of fluid collections prior to discharge. Pain control; need to continue to adjust every 5-7 days until off pain medicine prior to discharge Tylenol 650 mg every 4 hours as needed for pain 1-5 Oxycodone 5 mg every daily as needed for pain 6-10 (last adjusted on 08/27). Heating pad for chest and back pain Left wrist abscesses, likely from IV drug use I&D was performed Cultures 07/23 indicates MRSA Fungal cultures negative History of previous back surgery Status post removal of hardware secondary to previous MSSA infection MRI of the spine indicates elongated fluid collections in the posterior paraspinous soft tissue on the right and left without MRI features convincing for abscess these are presumed seromas and or old hematomas. No evidence of osteomyelitis Urinary tract infection Staph aureus on 07/21; possible translocation from staph bacteremia Acute renal failure superimposed on chronic kidney disease stage III Likely secondary to diuresis, vancomycin Nephrology consulted: appreciate recommendations. Renal US unremarkable: no evidence for hydronephrosis. Posterior bladder wall thickening or dependent debris. MILLER again on 08/13 due to diuresis but Cr now wnl. BUN slightly improved from prior at 29 on labs today. Chronic systolic congestive heart failure BNP on admission was significantly elevated. Echocardiogram shows systolic function severely reduced, ejection fraction 15- 20%. ACS evaluation negative Cardiology consulted and made recommendations, nonischemic cardiomyopathy. Okay to discharge from cardiology standpoint Nuclear stress test showing ventriculomegaly with large fixed perfusion abnormality and no evidence of stress-induced reversible abnormalities. Severe global hypokinesia with 14% ejection fraction. Continue Medications: Lasix 20 mg po daily KCL 10meq po daily Aspirin 81mg daily Lisinopril 5 mg po daily Coreg 3.125 mg po q12h PT evaluated patient for deconditioning; states he may benefit from cardiopulmonary rehab. CHF exacerbation started on 08/12 which is now resolved s/p IV Lasix. Patient no longer requires oxygen. He has episodes of dyspnea but is generally improved , back to baseline. Diabetes: BGL 129 this morning. Hemoglobin A1c 8.6. Continue Accu-Checks with sliding scale insulin translator deaf consulted and note reviewed. Consider oral hypoglycemics, metformin. I discussed starting metformin with patient, but he states he does not like taking medications stating he was on metformin 1000 mg twice daily in addition to cholesterol and antihypertensive medications in the past. He was informed of the risks of not controlling his diabetes. I will hold off on starting metformin at this point due to patient's lack of desire to start treatment. Will re-address prior to discharge. 1999 ADA diet Polysubstance abuse Patient admits to marijuana, Dilaudid, cocaine, methamphetamine drug use. UDS positive for cocaine and methamphetamine Patient counseled on cessation Malnutrition Prealbumin 9, continue to follow monthly Dietitian following, recommends: diet Glucerna Shakes bid Double Protein w/meals Provide one serving of peanut butter and/or cheese w/meals Anxiety: Xanax 0.25mg tid prn, Zoloft 50 mg po daily DVT prophylaxis: Lovenox 08/30: Patient discussed with Dr. Concepcion. Discharge Planning D/c when antibiotics completed. CM following. Yazmin Patino Aug 30, 2016 16:08
[2016-08-30 19:52] VITALS: O2SAT 98
[2016-08-30] MEDS: ALPRAZolam 0.25 MG TAB PO PRN (20:47)
[2016-08-30 20:49] VITALS: BP 96/66; PULSE 83; RESP 16; TEMP 97.6; O2SAT 95
[2016-08-31] MEDS: INSULIN ASPART SUPPLEMENTAL SCALE SQ SCH ×4 (05:55→20:13)
[2016-08-31 08:00] VITALS: BP 117/82; PULSE 81; RESP 18; TEMP 96.1; O2SAT 94; O2SAT 99
[2016-08-31] MEDS: DOCUSATE SODIUM 50 MG/SENNA 8.6 MG TAB PO SCH ×2 (08:59→20:06)
[2016-08-31] MEDS: ASPIRIN EC 81 MG TABEC PO SCH (08:59)
[2016-08-31] MEDS: POTASSIUM CHLORIDE 10 MEQ CONTROLLED RELEASE TAB PO SCH (09:00)
[2016-08-31] MEDS: CARVEDILOL 3.125 MG TAB PO SCH ×2 (09:00→20:09)
[2016-08-31] MEDS: SERTRALINE HCL 50 MG TAB PO SCH (09:00)
[2016-08-31] MEDS: PANTOPRAZOLE SOD 40 MG DELAYED RELEASE TAB PO SCH (09:00)
[2016-08-31] MEDS: FUROSEMIDE 20 MG TAB PO SCH (09:00)
[2016-08-31] MEDS: LISINOPRIL 5 MG TAB PO SCH (09:01)
--- NOTE | 2016-08-31 09:12 | HHI.PR ---
Subjective Remarks Follow-up for abdominal pain. Patient denies fevers, nausea, vomiting, or diarrhea. He again complains about his restricted diet and states he desires to be full after eating. States when he leaves here he is going to eat anything he wants anyway. Objective Vitals Vital Signs Date Time Temp Pulse Resp B/P Pulse Ox O2 Delivery O2 Flow Rate FiO2 08/31/16 08:00 96.1 81 18 117/82 99 08/30/16 20:49 97.6 83 16 96/66 95 08/30/16 19:52 98 21 08/30/16 11:26 18 I/O 08/30/16 08/30/16 08/30/16 08/31/16 08/31/16 08/31/16 07:00 15:00 23:00 07:00 15:00 23:00 Intake Total 420 ml 120 ml 0 ml Output Total 925 ml 200 ml 500 ml Balance -505 ml -80 ml -500 ml Intake Oral 420 ml 120 ml IV Total 0 ml Output Urine Total 925 ml 200 ml 500 ml # Bowel Movements 1 Result Diagram: 08/29/16 0515 08/29/16 0515 Imaging Last Impressions Abdomen/Pelvis CT 08/29/16 0000 Signed Impressions: Service Date/Time: Monday, August 29, 2016 21:09 - CONCLUSION: 1. 2 mm minimally obstructing stone of the left ureterovesical junction. 2. Sub-4 mm nonobstructing bilateral nephrolithiasis. 3. Patchy cortical thinning/scarring of the kidneys, right more so than left and chronic, not significantly changed. 4. Fatty liver. 5. Previous cholecystectomy. Multiple small spilled gallstones are again noted, chronic and unchanged. Most are in the gallbladder fossa region and along the anterior and inferior margin of the liver. Some are also in the pelvic cavity. 6. Diverticulosis of the sigmoid colon but no acute inflammatory changes. Kwesi Hinojosa MD Chest X-Ray 08/13/16 0600 Signed Impressions: Service Date/Time: Saturday, August 13, 2016 06:21 - CONCLUSION: No significant change has occurred. Duglas Celis MD Liver Ultrasound 08/02/16 0000 Signed Impressions: Service Date/Time: Tuesday, August 02, 2016 08:13 - CONCLUSION: 1. The liver is heterogeneous and mildly lobular suggestive of hepatocellular disease such as cirrhosis. 2. There is a trace of fluid adjacent to the liver.. 3. The pancreas was not visualized. Robert Johnson MD Renal Ultrasound 07/31/16 1517 Signed Impressions: Service Date/Time: July 20:19 - CONCLUSION: No evidence of hydronephrosis. Posterior bladder wall thickening or dependent debris. Ascites. Kwesi Coleman MD Abscess Drainage X-Ray 07/26/16 0000 Signed Impressions: Service Date/Time: Tuesday, July 26, 2016 16:35 - CONCLUSION: Uncomplicated aspiration of complex fluid collections in the lower back bilaterally as detailed above. Nikos Kaur MD Soft Tissue Ultrasound 07/25/16 1834 Signed Impressions: Service Date/Time: Monday, July 25, 2016 23:13 - CONCLUSION: In the parasagittal lower back, deep to the subcutaneous tissues, there are bilateral mixed cystic and solid lesion which measure up to 6 cm in size. Kalyan Hayes MD Myocardial Perfusion Scan Nuc Med 07/25/16 0000 Signed Impressions: Service Date/Time: Monday, July 25, 2016 10:43 - CONCLUSION: Ventriculomegaly with large fixed perfusion abnormality and no evidence of stress-induced reversible abnormalities. Severe global hypokinesia with 14%% ejection fraction. RISK CATEGORY: High (>3%% Annual Mortality Rate) Brown Tejeda MD Lumbar Spine MRI 07/24/16 0000 Signed Impressions: Service Date/Time: July 18:25 - CONCLUSION: 1. Previous surgery at L4/L5 and L5/S1 with subsequent hardware removal. There are elongated fluid collections in the posterior paraspinous soft tissues on the right and left without MRI features convincing for abscess. These are presumably seromas or old hematomas. Also no evidence of osteomyelitis.. 2. Normal thecal sac and epidural space. 3. No foraminal or spinal stenosis at any level. 4. Mild bilateral facet osteoarthritis and nonspecific synovitis at L3/L4. Kwesi Hinojosa MD CT Angiography 07/21/16 0000 Signed Impressions: Service Date/Time: Thursday, July 21, 2016 11:06 - CONCLUSION: 1. No evidence of pulmonary embolism. 2. Bilateral effusions and left basilar atelectasis Amos Toledo MD Objective Remarks GENERAL: Well-nourished, well developed patient in no apparent distress. CARDIOVASCULAR: Regular rate and rhythm. RESPIRATORY: No accessory muscle use. CTAB. Diminished breath sounds over RLL. GASTROINTESTINAL: Normoactive bowel sounds. Abdomen soft, nondistended. Guarding with palpation over epigastric region, RUQ, and RLQ, same. NEUROLOGICAL: Awake and alert. Normal speech. PSYCHIATRIC: Appropriate mood and affect. Urinary Catheter: No Vascular Central Line Catheter: No A/P Problem List: (1) Elevated lipase ICD Code: R74.8 Status: Acute (2) RUQ pain ICD Code: R10.11 Status: Acute Assessment and Plan Abdominal pain: Primarily right upper quadrant and epigastric, but also has right lower quadrant pain. -Normal WBC count. -AST and ALT wnl. Alkaline phosphatase improved from prior. -Lipase stable at 545. Lipase 94 on 07/21. Continue Protonix. Patient was started on a low fat diet, but he does not wish to continue this. -Liver US on 08/02/16 shows evidence of cirrhosis and states gallbladder has been surgically removed. -Due to persistence of pain, CT abdomen/pelvis was performed on 08/29 with results as above. CT reviewed by Dr. Concepcion and myself. Patient has significant amount of stool present which is likely causing pain as CT shows no acute process which would be causing R sided pain otherwise. Other differential includes effect from Daptomycin. Patient received one dose of lactulose yesterday and and started on scheduled Mela-colace this morning. Patient appears comfortable but still has pain. Vitals normal. If he fails to have sufficient BMs will increase bowel regimen. Bacteremia, MSSA Patient high risk due to IV drug use, previous spine osteomyelitis, possible endocarditis, spine hardware infection status post removal. Echocardiogram was performed which did not indicate any abnormalities or vegetations Blood cultures with one set positive with staph coag negative, negative cultures since 07/23/16 Infectious disease was consulted and followed the patient with recommendations to include: Daptomycin with stop date 09/03/16 CBC, CMP, CPK level weekly, next labs ordered for 09/03/16. *On-call infectious disease consult the last week of treatment. *Recommend repeat MRI of spine to see status of fluid collections prior to discharge to see if he needs explosive operator fuse suppressive antibiotics. Pain control; need to continue to adjust every 5-7 days until off pain medicine prior to discharge Tylenol 650 mg every 4 hours as needed for pain 1-5 Oxycodone 5 mg daily as needed for pain 6-10 (last adjusted on 08/27). Heating pad for chest and back pain Left wrist abscesses, likely from IV drug use I&D was performed Cultures 07/23 indicates MRSA Fungal cultures negative History of previous back surgery Status post removal of hardware secondary to previous MSSA infection MRI of the spine indicates elongated fluid collections in the posterior paraspinous soft tissue on the right and left without MRI features convincing for abscess these are presumed seromas and or old hematomas. No evidence of osteomyelitis Urinary tract infection Staph aureus on 07/21; possible translocation from staph bacteremia Acute renal failure superimposed on chronic kidney disease stage III Likely secondary to diuresis, vancomycin Nephrology consulted: appreciate recommendations. Renal US unremarkable: no evidence for hydronephrosis. Posterior bladder wall thickening or dependent debris. MILLER again on 08/13 due to diuresis but Cr now wnl. BUN 32 on most recent labs. Chronic systolic congestive heart failure BNP on admission was significantly elevated. Echocardiogram shows systolic function severely reduced, ejection fraction 15- 20%. ACS evaluation negative Cardiology consulted and made recommendations, nonischemic cardiomyopathy. Okay to discharge from cardiology standpoint Nuclear stress test showing ventriculomegaly with large fixed perfusion abnormality and no evidence of stress-induced reversible abnormalities. Severe global hypokinesia with 14% ejection fraction. Continue Medications: Lasix 20 mg po daily KCL 10meq po daily Aspirin 81mg daily Lisinopril 5 mg po daily Coreg 3.125 mg po q12h PT evaluated patient for deconditioning; states he may benefit from cardiopulmonary rehab. CHF exacerbation started on 08/12 which is now resolved s/p IV Lasix. Patient no longer requires oxygen. He has episodes of dyspnea but is generally improved , back to baseline. Continue fluid restriction of 1500 mL which patient is agreeable to. Lipid profile with LDL 123, HDL 72.1, and triglycerides 113. According to EMR patient was on cholesterol medication in the past but came off of it due to weight loss. Patient has history of TIAs which would indicate that he should strive for a lower LDL, but due to cirrhosis will avoid statins. Low cholesterol diet was started but patient does not desire to be on this. He was informed and understands the risk of [place] or stroke with elevated cholesterol levels. Diabetes: BGL 115 this morning. Hemoglobin A1c 8.6 on 07/22/16. Continue Accu-Checks with sliding scale insulin nurse informatics educator consulted and note reviewed. Consider oral hypoglycemics. I discussed starting medication with patient, but he states he does not like taking medications stating he was on metformin in the past. He was informed of the risks of not controlling his diabetes. 08/31: I re-addressed this with patient today and he is willing to take medication now; likely not a candidate for metformin due to hepatic disease and CHF, but will consider alternative oral agent. Patient was on Glyburide in the past per EMR. Will discuss with Dr. Concepcion. Continue 1999 ADA diet Polysubstance abuse Patient admits to marijuana, Dilaudid, cocaine, methamphetamine drug use. UDS positive for cocaine and methamphetamine Patient counseled on cessation Malnutrition Prealbumin 9, continue to follow monthly Dietitian following, recommends: diet Glucerna Shakes bid Double Protein w/meals Provide one serving of peanut butter and/or cheese w/meals Anxiety: Xanax 0.25mg tid prn, Zoloft 50 mg po daily DVT prophylaxis: Lovenox Discharge Planning D/c when antibiotics completed. CM following. Yazmin Patino Aug 31, 2016 09:12
[2016-08-31] MEDS: DAPTOMYCIN IV SCH (12:20)
[2016-08-31] MEDS: SODIUM CHLORIDE 0.9% IV SCH (12:20)
[2016-08-31] MEDS: SODIUM CHLORIDE 0.9% FLUSH 5 ML FLUSH FLUSH SCH ×2 (12:21→20:09)
[2016-08-31] MEDS: ENOXAPARIN SODIUM 40 MG/0.4 ML SYRINGE SQ SCH (13:10)
[2016-08-31] MEDS: ALPRAZolam 0.25 MG TAB PO PRN (20:06)
[2016-08-31 20:16] VITALS: O2SAT 96
[2016-08-31 20:41] VITALS: BP 114/72; PULSE 78; RESP 20; TEMP 97.8; O2SAT 98
[2016-09-01] MEDS: INSULIN ASPART SUPPLEMENTAL SCALE SQ SCH ×4 (06:14→20:01)
--- NOTE | 2016-09-01 08:51 | HHI.PR ---
Subjective Remarks Follow-up for bacteremia, abdominal pain. Patient still rates his right sided abdominal pain a 5/10. He states he had a bowel movement last night but none is documented since 08/30. States he did have some nausea last night. He denies any fevers, shortness of breath, vomiting, or diarrhea. Objective Vitals Vital Signs Date Time Temp Pulse Resp B/P Pulse Ox O2 Delivery O2 Flow Rate FiO2 09/01/16 07:14 18 08/31/16 20:41 97.8 78 20 114/72 98 08/31/16 20:16 96 21 I/O 08/31/16 08/31/16 08/31/16 09/01/16 09/01/16 09/01/16 07:00 15:00 23:00 07:00 15:00 23:00 Intake Total 0 ml 1150 ml 88 ml 100 ml Output Total 500 ml 1201 ml 350 ml 625 ml Balance -500 ml -51 ml -262 ml -525 ml Intake Oral 1050 ml 88 ml 100 ml IV Total 0 ml 100 ml Output Urine Total 500 ml 1200 ml 350 ml 625 ml Stool Total 1 ml # Voids 2 Result Diagram: 08/29/16 0515 08/29/16 0515 Imaging Last Impressions Abdomen/Pelvis CT 08/29/16 0000 Signed Impressions: Service Date/Time: Monday, August 29, 2016 21:09 - CONCLUSION: 1. 2 mm minimally obstructing stone of the left ureterovesical junction. 2. Sub-4 mm nonobstructing bilateral nephrolithiasis. 3. Patchy cortical thinning/scarring of the kidneys, right more so than left and chronic, not significantly changed. 4. Fatty liver. 5. Previous cholecystectomy. Multiple small spilled gallstones are again noted, chronic and unchanged. Most are in the gallbladder fossa region and along the anterior and inferior margin of the liver. Some are also in the pelvic cavity. 6. Diverticulosis of the sigmoid colon but no acute inflammatory changes. Kwesi Hinojosa MD Chest X-Ray 08/13/16 0600 Signed Impressions: Service Date/Time: Saturday, August 13, 2016 06:21 - CONCLUSION: No significant change has occurred. Duglas Celis MD Liver Ultrasound 08/02/16 0000 Signed Impressions: Service Date/Time: Tuesday, August 02, 2016 08:13 - CONCLUSION: 1. The liver is heterogeneous and mildly lobular suggestive of hepatocellular disease such as cirrhosis. 2. There is a trace of fluid adjacent to the liver.. 3. The pancreas was not visualized. Robert Johnson MD Renal Ultrasound 07/31/16 1517 Signed Impressions: Service Date/Time: July 20:19 - CONCLUSION: No evidence of hydronephrosis. Posterior bladder wall thickening or dependent debris. Ascites. Kwesi Coleman MD Abscess Drainage X-Ray 07/26/16 0000 Signed Impressions: Service Date/Time: Tuesday, July 26, 2016 16:35 - CONCLUSION: Uncomplicated aspiration of complex fluid collections in the lower back bilaterally as detailed above. Nikos Kaur MD Soft Tissue Ultrasound 07/25/16 1834 Signed Impressions: Service Date/Time: Monday, July 25, 2016 23:13 - CONCLUSION: In the parasagittal lower back, deep to the subcutaneous tissues, there are bilateral mixed cystic and solid lesion which measure up to 6 cm in size. Kalyan Hayes MD Myocardial Perfusion Scan Nuc Med 07/25/16 0000 Signed Impressions: Service Date/Time: Monday, July 25, 2016 10:43 - CONCLUSION: Ventriculomegaly with large fixed perfusion abnormality and no evidence of stress-induced reversible abnormalities. Severe global hypokinesia with 14%% ejection fraction. RISK CATEGORY: High (>3%% Annual Mortality Rate) Brown Tejeda MD Lumbar Spine MRI 07/24/16 0000 Signed Impressions: Service Date/Time: July 18:25 - CONCLUSION: 1. Previous surgery at L4/L5 and L5/S1 with subsequent hardware removal. There are elongated fluid collections in the posterior paraspinous soft tissues on the right and left without MRI features convincing for abscess. These are presumably seromas or old hematomas. Also no evidence of osteomyelitis.. 2. Normal thecal sac and epidural space. 3. No foraminal or spinal stenosis at any level. 4. Mild bilateral facet osteoarthritis and nonspecific synovitis at L3/L4. Kwesi Hinojosa MD CT Angiography 07/21/16 0000 Signed Impressions: Service Date/Time: Thursday, July 21, 2016 11:06 - CONCLUSION: 1. No evidence of pulmonary embolism. 2. Bilateral effusions and left basilar atelectasis Amos Toledo MD Objective Remarks GENERAL: Well-nourished, well developed patient in no apparent distress sitting on side of bed about to eat breakfast. CARDIOVASCULAR: Regular rate and rhythm. RESPIRATORY: No accessory muscle use. CTAB. Mildly diminished breath sounds over RLL. GASTROINTESTINAL: Abdomen soft, nondistended. Guarding with palpation over RUQ and RLQ, same. No hepatomegaly. NEUROLOGICAL: Awake and alert. Normal speech. PSYCHIATRIC: Appropriate mood and affect. Urinary Catheter: No Vascular Central Line Catheter: No A/P Problem List: (1) Elevated lipase ICD Code: R74.8 Status: Acute (2) RUQ pain ICD Code: R10.11 Status: Acute Assessment and Plan Abdominal pain: Primarily right upper and lower quadrants. H/o cholecystectomy and appendectomy. -Normal WBC count. -AST and ALT wnl. Alkaline phosphatase improved from prior. -Lipase stable at 545. Lipase 94 on 07/21. Continue Protonix. Patient was started on a low fat diet, but he did not wish to continue this so it was discontinued. -Liver US on 08/02/16 shows evidence of cirrhosis and states gallbladder has been surgically removed. -Due to persistence of pain, CT abdomen/pelvis was performed on 08/29 with results as above. CT was reviewed and there is significant amount of stool present which is likely causing pain as CT shows no acute process which would be causing R sided pain otherwise; pain unlikely to be due to cirrhosis. -09/01: Patient received one dose of lactulose on 07/30 and was started on scheduled Mela-colace yesterday. He states he had a bowel movement last night but none is documented since 08/30. Patient appears comfortable but still has pain. Vitals normal. Patient still needs to have increased BMs. Patient did not seem to have effect from lactulose. He received Mela-colace this morning. Discussed with Dr. Concepcion. One time dose of Dulcolax 15 mg po ordered as patient is unlikely to use suppository. Monitor clinically and increase bowel regimen as needed. Heat application. Bacteremia, MSSA Patient high risk due to IV drug use, previous spine osteomyelitis, possible endocarditis, spine hardware infection status post removal. Echocardiogram was performed which did not indicate any abnormalities or vegetations Blood cultures with one set positive with staph coag negative, negative cultures since 07/23/16 Infectious disease was consulted and followed the patient with recommendations to include: Daptomycin with stop date 09/03/16 CBC, CMP, CPK level weekly, next labs ordered for 09/03/16. *On-call infectious disease consult the last week of treatment *Recommend repeat MRI of spine to see status of fluid collections prior to discharge to see if he needs intermediate frame tender suppressive antibiotics. -09/01: I spoke with Dr. Jules, manager operational ID physician, and asked her to come evaluate the patient. She advises obtaining an ESR and CRP and advises ordering the MRI of the L-spine. Patient states he is extremely claustrophobic. 1 mg IV Ativan to be administered 20 minutes prior to MRI. Pain control; need to continue to adjust every 5-7 days until off pain medicine prior to discharge Tylenol 650 mg every 4 hours as needed for pain 1-5 Oxycodone 5 mg daily as needed for pain 6-10 (last adjusted on 08/27). Heating pad for chest and back pain Left wrist abscesses, likely from IV drug use I&D was performed Cultures 07/23 indicates MRSA Fungal cultures negative History of previous back surgery Status post removal of hardware secondary to previous MSSA infection MRI of the spine indicates elongated fluid collections in the posterior paraspinous soft tissue on the right and left without MRI features convincing for abscess these are presumed seromas and or old hematomas. No evidence of osteomyelitis Urinary tract infection Staph aureus on 07/21; possible translocation from staph bacteremia Acute renal failure superimposed on chronic kidney disease stage III Likely secondary to diuresis, vancomycin Nephrology consulted: appreciate recommendations. Renal US unremarkable: no evidence for hydronephrosis. Posterior bladder wall thickening or dependent debris. MILLER again on 08/13 due to diuresis but Cr now wnl. BUN 32 on most recent labs. Chronic systolic congestive heart failure BNP on admission was significantly elevated. Echocardiogram shows systolic function severely reduced, ejection fraction 15- 20%. ACS evaluation negative Cardiology consulted and made recommendations, nonischemic cardiomyopathy. Okay to discharge from cardiology standpoint Nuclear stress test showing ventriculomegaly with large fixed perfusion abnormality and no evidence of stress-induced reversible abnormalities. Severe global hypokinesia with 14% ejection fraction. Continue Medications: Lasix 20 mg po daily KCL 10meq po daily Aspirin 81mg daily Lisinopril 5 mg po daily Coreg 3.125 mg po q12h PT evaluated patient for deconditioning; states he may benefit from cardiopulmonary rehab. CHF exacerbation started on 08/12 which is now resolved s/p IV Lasix. Patient no longer requires oxygen. He has episodes of dyspnea but is generally improved , back to baseline. Continue fluid restriction of 1500 mL which patient is agreeable to. Lipid profile with LDL 123, HDL 72.1, and triglycerides 113. According to EMR patient was on cholesterol medication in the past but came off of it due to weight loss. Patient has history of TIAs which would indicate that he should strive for a lower LDL, but due to cirrhosis will avoid statins. Low cholesterol diet was started but patient does not desire to be on this. He was informed and understands the risk of [place] or stroke with elevated cholesterol levels. Diabetes: BGL 115 this morning. Hemoglobin A1c 8.6 on 07/22/16. Continue Accu-Checks with sliding scale insulin consumer educator consulted and note reviewed. Consider oral hypoglycemics. I discussed starting medication with patient, but he stated he did not like taking medications stating he was on metformin in the past. He was informed of the risks of not controlling his diabetes. Continue 1999 ADA diet 09/01: Patient is now willing to take oral medication. He is not a candidate for metformin due to hepatic disease and CHF. Discussed with Dr. Concepcion. Patient was on Glyburide in the past and will be restarted on this at low dose due to hepatic disease. He is advised to follow up with PCP for further management. Polysubstance abuse Patient admits to marijuana, Dilaudid, cocaine, methamphetamine drug use. UDS positive for cocaine and methamphetamine Patient counseled on cessation Malnutrition Prealbumin 9, continue to follow monthly Dietitian following, recommends: diet Glucerna Shakes bid Double Protein w/meals Provide one serving of peanut butter and/or cheese w/meals Anxiety: Xanax 0.25mg tid prn, Zoloft 50 mg po daily DVT prophylaxis: Lovenox Discharge Planning D/c when antibiotics completed. CM following. Yazmin Patino Sep 01, 2016 08:51
[2016-09-01] MEDS: CARVEDILOL 3.125 MG TAB PO SCH ×2 (09:12→19:52)
[2016-09-01] MEDS: POTASSIUM CHLORIDE 10 MEQ CONTROLLED RELEASE TAB PO SCH (09:12)
[2016-09-01] MEDS: ASPIRIN EC 81 MG TABEC PO SCH (09:12)
[2016-09-01] MEDS: FUROSEMIDE 20 MG TAB PO SCH (09:12)
[2016-09-01] MEDS: DOCUSATE SODIUM 50 MG/SENNA 8.6 MG TAB PO SCH ×2 (09:12→19:52)
[2016-09-01] MEDS: LISINOPRIL 5 MG TAB PO SCH (09:12)
[2016-09-01] MEDS: PANTOPRAZOLE SOD 40 MG DELAYED RELEASE TAB PO SCH (09:13)
[2016-09-01] MEDS: SERTRALINE HCL 50 MG TAB PO SCH (09:13)
[2016-09-01 09:21] VITALS: BP 114/68; PULSE 78; RESP 17; TEMP 97.2; O2SAT 98
[2016-09-01] MEDS ORDERED: POLYETHYLENE GLYCOL 17 GM PKG PO SCH (10:00)
[2016-09-01] MEDS ORDERED: BISACODYL EC 5 MG TABEC PO ONE (10:00)
[2016-09-01] MEDS ORDERED: LORazepam 2 MG/ML VIAL IVS ONE (11:00)
[2016-09-01] MEDS ORDERED: PILL SPLITTER OTHER PRN (11:15)
[2016-09-01] MEDS: SODIUM CHLORIDE 0.9% IV SCH (13:13)
[2016-09-01] MEDS: SODIUM CHLORIDE 0.9% FLUSH 5 ML FLUSH FLUSH SCH ×2 (13:13→19:52)
[2016-09-01] MEDS: DAPTOMYCIN IV SCH (13:13)
[2016-09-01] MEDS: ENOXAPARIN SODIUM 40 MG/0.4 ML SYRINGE SQ SCH (13:45)
[2016-09-01] MEDS ORDERED: GADODIAMIDE PF 287 MG/ML 5 ML VIAL (for RAD MRI) IV ONE (14:40)
--- NOTE | 2016-09-01 17:44 | RADHPO ---
EXAM DATE/TIME: 09/01/2016 14:21 [facility] COMPARISON: MRI LUMBAR SPINE W & W/O CONTRAST, July 24, 2016, 18:25. INDICATIONS : Osteomyelitis. Lower back pain with hardware removed in 2014. CONTRAST: 14 cc Omniscan (gadodiamide) IV MEDICAL HISTORY : Hypertension. Diabetes mellitus type 2. Cerebrovascular disease. IVDU. SURGICAL HISTORY : Cholecystectomy. Appendectomy. L-spine hardware removed in 2014. ENCOUNTER: Sequela ACUITY: 1 month PAIN SCORE: 5/10 LOCATION: Bilateral lower back. TECHNIQUE: Multiplanar multisequence MRI of the lumbar spine was performed with and without contr ast. FINDINGS: MRI of the lumbar spine was obtained. Signal intensity in the lumbar spine appears normal. There is dessication of the T11 and T12 and T12 -L1 disc. Conus is at T12-L1. L1-L2: The thecal sac has a normal diameter. No evidence of disc bulge or protrusion. The neural f oramina are patent bilaterally. L2-L3: The thecal sac has a normal diameter. No evidence of disc bulge or protrusion. The neural f oramina are patent bilaterally. L3-L4: The thecal sac has a normal diameter. No evidence of disc bulge or protrusion. The neural f oramina are patent bilaterally. L4-L5: The thecal sac has a normal diameter. No evidence of disc bulge or protrusion. The neural f oramina are patent bilaterally. L5-S1: There is marked dessication of the L5-S1 disc. The enhancement in the posterior soft tissues h as substantially improved. CONCLUSION: 1. Post-surgical changes in the posterior soft tissues, substantially improved from the comparison st udy. 2. Very minimal enhancement in the disc space at L5-S1 at the site of previous surgery, nonspecific. Larry Sharma MD FACR on September 01, 2016 at 16:29 Board Certified Radiologist. This report was verified electronically.
[2016-09-01 18:17] VITALS: O2SAT 98
[2016-09-01 20:00] VITALS: BP 102/68; PULSE 77; RESP 20; TEMP 97.5; O2SAT 98
[2016-09-01 21:02] VITALS: BP 102/68; PULSE 77; RESP 20; TEMP 97.5; O2SAT 98
[2016-09-01] MEDS: ALPRAZolam 0.25 MG TAB PO PRN (22:49)
[2016-09-02] MEDS: INSULIN ASPART SUPPLEMENTAL SCALE SQ SCH ×4 (06:28→21:00)
[2016-09-02 08:00] VITALS: BP 115/76; PULSE 81; RESP 16; TEMP 96.1; O2SAT 98
[2016-09-02] MEDS: FUROSEMIDE 20 MG TAB PO SCH (08:21)
[2016-09-02] MEDS: LISINOPRIL 5 MG TAB PO SCH (08:21)
[2016-09-02] MEDS: SERTRALINE HCL 50 MG TAB PO SCH (08:21)
[2016-09-02] MEDS: glyBURIDE 2.5 MG TAB PO SCH (08:21)
[2016-09-02] MEDS: POTASSIUM CHLORIDE 10 MEQ CONTROLLED RELEASE TAB PO SCH (08:21)
[2016-09-02] MEDS: CARVEDILOL 3.125 MG TAB PO SCH ×2 (08:21→20:40)
[2016-09-02] MEDS: PANTOPRAZOLE SOD 40 MG DELAYED RELEASE TAB PO SCH (08:21)
[2016-09-02] MEDS: ASPIRIN EC 81 MG TABEC PO SCH (08:21)
[2016-09-02] MEDS: DOCUSATE SODIUM 50 MG/SENNA 8.6 MG TAB PO SCH ×2 (08:22→20:40)
[2016-09-02] MEDS: SODIUM CHLORIDE 0.9% FLUSH 5 ML FLUSH FLUSH SCH ×2 (08:23→20:39)
[2016-09-02 10:00] VITALS: O2SAT 98
[2016-09-02] MEDS: ALPRAZolam 0.25 MG TAB PO PRN ×2 (11:54→21:40)
[2016-09-02] MEDS: DAPTOMYCIN IV SCH (11:54)
[2016-09-02] MEDS: SODIUM CHLORIDE 0.9% IV SCH (11:54)
[2016-09-02] MEDS: ENOXAPARIN SODIUM 40 MG/0.4 ML SYRINGE SQ SCH (11:54)
--- NOTE | 2016-09-02 13:47 | HHI.PR ---
Subjective Remarks Follow-up for patient with bacteremia and abdominal pain. Extensive workup today has been negative. Patient still rates his right sided abdominal pain a 5 /10. Patient had bowel movement earlier today. He denies any N/V, fevers, shortness of breath, vomiting, or diarrhea. Patient is looking forward to his anticipated discharge tomorrow. Objective Vitals Vital Signs Date Time Temp Pulse Resp B/P Pulse Ox O2 Delivery O2 Flow Rate FiO2 09/02/16 09:52 18 09/02/16 08:00 96.1 81 16 115/76 98 09/01/16 20:00 97.5 77 20 102/68 98 09/01/16 18:17 98 I/O 09/01/16 09/01/16 09/01/16 09/02/16 09/02/16 09/02/16 07:00 15:00 23:00 07:00 15:00 23:00 Intake Total 100 ml 2080 ml 240 ml Output Total 625 ml 1000 ml 400 ml Balance -525 ml 1080 ml -160 ml Intake Oral 100 ml 1980 ml 240 ml IV Total 100 ml Output Urine Total 625 ml 1000 ml 400 ml # Voids 2 # Bowel Movements 1 0 Result Diagram: 08/29/16 0515 08/29/16 0515 Imaging Last 48 hours Impressions Lumbar Spine MRI 09/01/16 0000 Signed Impressions: Service Date/Time: Thursday, September 01, 2016 14:21 - CONCLUSION: 1. Post-surgical changes in the posterior soft tissues, substantially improved from the comparison study. 2. Very minimal enhancement in the disc space at L5-S1 at the site of previous surgery, nonspecific. Larry Sharma MD FACR Objective Remarks GENERAL: Well-nourished, well developed patient in no apparent distress. A&Ox3. CARDIOVASCULAR: Regular rate and rhythm. RESPIRATORY: No accessory muscle use. CTAB. GASTROINTESTINAL: Abdomen soft, nondistended and nontender to palpation. No guarding. No hepatomegaly. NEUROLOGICAL: Awake and alert. Normal speech. PSYCHIATRIC: Appropriate mood and affect. Urinary Catheter: No Vascular Central Line Catheter: No Medications and IVs Current Medications Medications (Trade) Dose Ordered Sig/Keiko Route Start Time Stop Time Status Last Admin (NS Flush) 2 ml UNSCH PRN FLUSH 07/21/16 12:30 08/05/16 13:49 (NS Flush) 2 ml BID FLUSH 07/21/16 21:00 09/02/16 08:23 (Lovenox Inj) 40 mg Q24H SQ 07/21/16 13:00 09/02/16 11:54 (Narcan Inj) 0.4 mg UNSCH PRN IV 07/21/16 12:30 (D50w (Vial) Inj) 25 ml UNSCH PRN IV PUSH 07/21/16 12:30 (Glucagon Inj) 1 mg UNSCH PRN OTHER 07/21/16 12:30 (Ecotrin Ec) 81 mg DAILY PO 07/22/16 09:00 09/02/16 08:21 (Pill Splitter) 1 ea UNSCH PRN OTHER 07/24/16 07:00 (Xanax) 0.25 mg TID PRN PO 07/24/16 09:30 09/03/16 09:29 09/02/16 11:54 (Zoloft) 50 mg DAILY PO 07/25/16 11:00 09/02/16 08:21 (Lasix) 20 mg DAILY PO 07/28/16 09:00 09/02/16 08:21 (KCl) 10 meq DAILY PO 07/28/16 09:00 09/02/16 08:21 (Prinivil) 5 mg DAILY PO 07/30/16 09:00 09/02/16 08:21 Carvedilol 3.125 mg 3.125 mg Q12HR PO 07/30/16 21:00 09/02/16 08:21 (Cubicin Inj/NS Inj) 100 ml @ 200 mls/hr Q24H IV 08/01/16 12:00 09/02/16 11:54 (Zofran Odt) 4 mg Q6H PRN PO 08/10/16 14:00 (Tylenol) 650 mg Q4H PRN PO 08/10/16 14:00 (Roxicodone) 5 mg DAILY PRN PO 08/27/16 21:00 09/02/16 08:23 (Protonix) 40 mg DAILY PO 08/28/16 14:00 09/02/16 08:21 (Mela-Colace) 2 tab BID PO 08/31/16 09:00 09/01/16 19:52 (Diabeta) 1.25 mg DAILYAC PO 09/02/16 08:00 2/28/17 08:21 A/P Problem List: (1) Elevated lipase ICD Code: R74.8 Status: Acute (2) RUQ pain ICD Code: R10.11 Status: Acute Assessment and Plan Abdominal pain: Primarily right upper and lower quadrants. H/o cholecystectomy and appendectomy. -Extensive workup negative to date. -Normal WBC count. -AST and ALT wnl. Alkaline phosphatase improved from prior. -Lipase stable at 545. Lipase 94 on 07/21. Continue Protonix. Patient was started on a low fat diet, but he did not wish to continue this so it was discontinued. -Liver US on 08/02/16 shows evidence of cirrhosis and states gallbladder has been surgically removed. -Due to persistence of pain, CT abdomen/pelvis was performed on 08/29 with results as above. CT was reviewed and there is significant amount of stool present which is likely causing pain as CT shows no acute process which would be causing R sided pain otherwise; pain unlikely to be due to cirrhosis. Constipation: -Successful BM today -Continue with bowel regimen -Mela-Colace twice a day -continue to monitor for regular BM Bacteremia, MSSA Patient high risk due to IV drug use, previous spine osteomyelitis, possible endocarditis, spine hardware infection status post removal. Echocardiogram was performed which did not indicate any abnormalities or vegetations Blood cultures with one set positive with staph coag negative, negative cultures since 07/23/16 Infectious disease was consulted and followed the patient with recommendations to include: Daptomycin with stop date 09/03/16 CBC, CMP, CPK level weekly, next labs ordered for 09/03/16. *On-call infectious disease consult the last week of treatment *Recommend repeat MRI of spine to see status of fluid collections - MRI completed 227 revealing postsurgical changes the posterior soft tissues essentially improved from comparison study, very minimal enhancement of the disc space at L5-S1 previous surgery nonspecific. Laboratory studies obtained for evaluation of infection to include sedimentation rate and CRP are 1 and less than 0.29 respectively. -Will contact infectious disease specialist tomorrow prior to discharge to ascertain if any suppressive antibiotic therapy required at time of discharge Pain control; need to continue to adjust every 5-7 days until off pain medicine prior to discharge Tylenol 650 mg every 4 hours as needed for pain 1-5 Oxycodone 5 mg daily as needed for pain 6-10 (last adjusted on 08/27). Heating pad for chest and back pain Left wrist abscesses, likely from IV drug use I&D was performed Cultures 07/23 indicates MRSA Fungal cultures negative Urinary tract infection Staph aureus on 07/21; possible translocation from staph bacteremia Acute renal failure superimposed on chronic kidney disease stage III Likely secondary to diuresis, vancomycin Nephrology consulted: appreciate recommendations. Renal US unremarkable: no evidence for hydronephrosis. Posterior bladder wall thickening or dependent debris. MILLER again on 08/13 due to diuresis but Cr now wnl. BUN 32 on most recent labs dated 08/29/16. Chronic systolic congestive heart failure BNP on admission was significantly elevated. Echocardiogram shows systolic function severely reduced, ejection fraction 15- 20%. ACS evaluation negative Cardiology consulted and made recommendations, nonischemic cardiomyopathy. Okay to discharge from cardiology standpoint. Nuclear stress test showing ventriculomegaly with large fixed perfusion abnormality and no evidence of stress-induced reversible abnormalities. Severe global hypokinesia with 14% ejection fraction. Continue Medications: Lasix 20 mg po daily KCL 10meq po daily Aspirin 81mg daily Lisinopril 5 mg po daily Coreg 3.125 mg po q12h PT evaluated patient for deconditioning; states he may benefit from cardiopulmonary rehab. CHF exacerbation started on 08/12 which is now resolved s/p IV Lasix. Patient no longer requires oxygen. He has episodes of dyspnea but is generally improved , back to baseline. Continue fluid restriction of 1500 mL which patient is agreeable to. Lipid profile with LDL 123, HDL 72.1, and triglycerides 113. According to EMR patient was on cholesterol medication in the past but came off of it due to weight loss. Patient has history of TIAs which would indicate that he should strive for a lower LDL, but due to cirrhosis will avoid statins. Low cholesterol diet was started but patient does not desire to be on this. He was informed and understands the risk of [place] or stroke with elevated cholesterol levels. Diabetes: BGL 115 this morning. Hemoglobin A1c 8.6 on 07/22/16. Continue Accu-Checks with sliding scale insulin clinical document improvement educator consulted and note reviewed. Consider oral hypoglycemics. I discussed starting medication with patient, but he stated he did not like taking medications stating he was on metformin in the past. He was informed of the risks of not controlling his diabetes. Continue 1999 ADA diet Patient resumed on previous dose of glyburide 1.25 mg daily. Blood sugar showing good control ranging from 106-180 the past 24 hours. Polysubstance abuse Patient admits to marijuana, Dilaudid, cocaine, methamphetamine drug use. UDS positive for cocaine and methamphetamine Patient counseled on cessation Malnutrition Prealbumin 9, continue to follow monthly Dietitian following, recommends: diet Glucerna Shakes bid Double Protein w/meals Provide one serving of peanut butter and/or cheese w/meals Anxiety: Xanax 0.25mg tid prn, Zoloft 50 mg po daily DVT prophylaxis: Lovenox Discharge Planning Plan to discharge tomorrow following completion of Daptomycin therapy. We'll discuss with ID prior to discharge to ascertain need for chronic suppressive antibiotic therapy. Little Mckeon Sep 02, 2016 13:47
[2016-09-02 19:53] VITALS: O2SAT 98
[2016-09-02 20:00] VITALS: BP 111/73; PULSE 79; RESP 20; TEMP 95; O2SAT 100
[2016-09-03] MEDS: INSULIN ASPART SUPPLEMENTAL SCALE SQ SCH (07:00)
[2016-09-03 07:33] LABS: AUTOMATED NEUTROPHIL # 2.3 TH/MM3 (1.8-7.7); BASOPHIL # 0.1 TH/MM3 (0-0.2); BASOPHIL % 0.9 % (0.0-2.0); EOSINOPHIL # 0.3 TH/MM3 (0-0.4); EOSINOPHIL % 4.5 % (0.0-4.0); HEMATOCRIT 43.2 % (39.0-51.0); HEMO FLAGS DIFF FINAL; LYMPH % 41.7 % (9.0-44.0); LYMPHOCYTE # 2.4 TH/MM3 (1.0-4.8); MEAN CELL VOLUME 83.4 FL (80.0-100.0); MEAN CORPUSCULAR HEMOGLOBIN 27.1 PG (27.0-34.0); MEAN CORPUSCULAR HGB CONC 32.5 % (32.0-36.0); MONO % 9.8 % (0.0-8.0); NEUT % 43.1 % (16.0-70.0); PLATELET COUNT 200 TH/MM3 (150-450); RED BLOOD COUNT 5.18 MIL/MM3 (4.50-5.90); WHITE BLOOD COUNT 5.7 TH/MM3 (4.0-11.0)
[2016-09-03 07:40] LABS: CHLORIDE 102 MEQ/L (98-107); POTASSIUM 3.4 MEQ/L (3.5-5.1); SODIUM (NA) 139 MEQ/L (136-145)
[2016-09-03 07:44] LABS: ANION GAP 8 MEQ/L (5-15); BICARBONATE 29.3 MEQ/L (21.0-32.0); BLOOD UREA NITROGEN 24 MG/DL (7-18)
[2016-09-03 07:47] LABS: ALT (GPT) 43 U/L (12-78); AST (GOT) 31 U/L (15-37); GLOMERULAR FILTRATION RATE 86 ML/MIN (>89)
[2016-09-03 07:49] LABS: TOTAL BILIRUBIN ADULT 0.3 MG/DL (0.2-1.0)
[2016-09-03 07:50] LABS: ALKALINE PHOSPHATASE 200 U/L (45-117)
[2016-09-03 07:54] LABS: CREATINE KINASE 47 U/L (39-308)
--- NOTE | 2016-09-03 08:02 | HHI.IDPN ---
Subjective Subjective Remarks is a 71-year-old male with a PMH significant for IV drug use, back surgery, MSSA hardware infection followed by hardware removal. Currently admitted with back pain, multiple abscesses with different organisms in cultures. Patient is known IVDA and this can be seen in such cases. Feels well. Anxious to go home No fevers Back pain controlled. Ambulating in room with no difficulty Patient finishing course of IV antibiotics today. Reviewed repeat MRI Antibiotics Dapto IV Lines Line sites with no e/o infection. Past Medical History reviewed. Allergies: Coded Allergies: Morphine (Verified Allergy, Severe, Itching, 07/21/16) *MDRO Multi-Drug Resistant Organism (Verified Adverse Reaction, Unknown, ) 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/16 Objective . Vital Signs Date Time Temp Pulse Resp B/P Pulse Ox O2 Delivery O2 Flow Rate FiO2 09/02/16 20:00 95.0 79 20 111/73 100 09/02/16 19:53 98 21 09/02/16 10:00 98 21 09/02/16 09:52 18 09/02/16 08:00 96.1 81 16 115/76 98 09/02/16 09/02/16 09/03/16 15:00 23:00 07:00 Intake Total 720 ml 480 ml 220 ml Output Total 200 ml 950 ml 500 ml Balance 520 ml -470 ml -280 ml Intake Oral 720 ml 480 ml 220 ml Output Urine Total 200 ml 950 ml 500 ml # Voids 1 # Bowel Movements 0 0 0 . Laboratory Tests Test 09/01/16 09/03/16 09:50 07:00 Erythrocyte Sedimentation Rate 1 mm/hr White Blood Count 5.7 TH/MM3 Red Blood Count 5.18 MIL/MM3 Hemoglobin 14.1 GM/DL Hematocrit 43.2 % Mean Corpuscular Volume 83.4 FL Mean Corpuscular Hemoglobin 27.1 PG Mean Corpuscular Hemoglobin 32.5 % Concent Red Cell Distribution Width 15.0 % Platelet Count 200 TH/MM3 Mean Platelet Volume 8.6 FL Neutrophils (%) (Auto) 43.1 % Lymphocytes (%) (Auto) 41.7 % Monocytes (%) (Auto) 9.8 % Eosinophils (%) (Auto) 4.5 % Basophils (%) (Auto) 0.9 % Neutrophils # (Auto) 2.3 TH/MM3 Lymphocytes # (Auto) 2.4 TH/MM3 Monocytes # (Auto) 0.6 TH/MM3 Eosinophils # (Auto) 0.3 TH/MM3 Basophils # (Auto) 0.1 TH/MM3 CBC Comment DIFF FINAL Differential Comment Laboratory Tests Test 09/01/16 09/03/16 09:50 07:00 C-Reactive Protein LESS THAN 0.29 MG/DL Sodium Level 139 MEQ/L Potassium Level 3.4 MEQ/L Chloride Level 102 MEQ/L Carbon Dioxide Level 29.3 MEQ/L Anion Gap 8 MEQ/L Blood Urea Nitrogen 24 MG/DL Creatinine 0.88 MG/DL Estimat Glomerular Filtration 86 ML/MIN Rate Random Glucose 151 MG/DL Calcium Level 9.4 MG/DL Total Bilirubin 0.3 MG/DL Aspartate Amino Transf 31 U/L (AST/SGOT) Alanine Aminotransferase 43 U/L (ALT/SGPT) Alkaline Phosphatase 200 U/L Total Creatine Kinase 47 U/L Total Protein 7.9 GM/DL Albumin 3.7 GM/DL Imaging Last Impressions Myocardial Perfusion Scan Nuc Med 07/25/16 0000 Signed Impressions: Service Date/Time: Monday, July 25, 2016 10:43 - CONCLUSION: Ventriculomegaly with large fixed perfusion abnormality and no evidence of stress-induced reversible abnormalities. Severe global hypokinesia with 14%% ejection fraction. RISK CATEGORY: High (>3%% Annual Mortality Rate) Brown Tejeda MD Lumbar Spine MRI 07/24/16 0000 Signed Impressions: Service Date/Time: July 18:25 - CONCLUSION: 1. Previous surgery at L4/L5 and L5/S1 with subsequent hardware removal. There are elongated fluid collections in the posterior paraspinous soft tissues on the right and left without MRI features convincing for abscess. These are presumably seromas or old hematomas. Also no evidence of osteomyelitis.. 2. Normal thecal sac and epidural space. 3. No foraminal or spinal stenosis at any level. 4. Mild bilateral facet osteoarthritis and nonspecific synovitis at L3/L4. Kwesi Hinojosa MD Abdomen/Pelvis CT 07/23/16 0000 Signed Impressions: Service Date/Time: Saturday, July 23, 2016 17:42 - CONCLUSION: 1. Diverticulosis without diverticulitis. 2. Minimal ascites. 3. Dilated stomach. 4. A few punctate of second bilateral renal calculi. 5. Small bilateral pleural effusions. 6. No abscess seen. James Wyatt MD Chest X-Ray 07/21/16 1002 Signed Impressions: Service Date/Time: Thursday, July 21, 2016 10:01 - CONCLUSION: 1. Blunting of both costophrenic angles, right greater than left suggesting some degree of effusion. 2. In addition, there is some focal increased interstitial markings in the right lower lung field suggesting some asymmetric vascular congestion or volume overload. No confluent infiltrate. 3. Dextroscoliosis of the thoracolumbar spine with associated degenerative changes Nikos Kaur MD CT Angiography 07/21/16 0000 Signed Impressions: Service Date/Time: Thursday, July 21, 2016 11:06 - CONCLUSION: 1. No evidence of pulmonary embolism. 2. Bilateral effusions and left basilar atelectasis Amos Toledo MD Physical Exam GENERAL: This is a well-nourished, well-developed patient, in no apparent distress. SKIN: No rashes, ecchymoses or lesions. Cool and dry. HEAD: Atraumatic. Normocephalic. No temporal or scalp tenderness. EYES: Pupils equal round and reactive. Extraocular motions intact. No scleral icterus. No injection or drainage. ENT: Nose without bleeding, purulent drainage or septal hematoma. Throat without erythema, tonsillar hypertrophy or exudate. Uvula midline. Airway patent. NECK: Trachea midline. Supple, nontender, no meningeal signs. CARDIOVASCULAR: HS audible. RESPIRATORY: Clear to auscultation. Breath sounds equal bilaterally. GASTROINTESTINAL: Abdomen soft, non-tender, nondistended. MUSCULOSKELETAL: Bilateral forearm sites improving. NEUROLOGICAL: Awake and alert. Grossly nonfocal. Psych: cooperative IV line sites with no e/o infection. Assessment & Plan Remarks Coag neg staph bacteremia in pt with IVDA and prior Spine Osteomyelitis. Repeat cultures negative MSSA in urine: ? translocation in urine from Staph bacteremia. Possible Endocarditis and or Spinal hardware infection. Prior MSSA hardware infection s/p removal. Bilateral forearm abscess (left at wrist level, right in mid forearm)- resolved H/o IVDU Recs 1. Stop Daptomycin today 2. Reviewed MRI as well as Sed rate and CRP . 3. Start Cipro 500 mg po bid- continue for a month 4. Strongly advised against drug use. 5. Patient can be discharged from ID point of view and follow up in a month 6. Remove lines prior to discharge. Marisa Jules MD Sep 03, 2016 08:02
[2016-09-03 08:27] VITALS: BP 124/80; PULSE 87; RESP 18; TEMP 97.6; O2SAT 100
[2016-09-03] MEDS: SERTRALINE HCL 50 MG TAB PO SCH (08:31)
[2016-09-03] MEDS: DOCUSATE SODIUM 50 MG/SENNA 8.6 MG TAB PO SCH (08:31)
[2016-09-03] MEDS: FUROSEMIDE 20 MG TAB PO SCH (08:32)
[2016-09-03] MEDS: POTASSIUM CHLORIDE 10 MEQ CONTROLLED RELEASE TAB PO SCH (08:32)
[2016-09-03] MEDS: ASPIRIN EC 81 MG TABEC PO SCH (08:32)
[2016-09-03] MEDS: CARVEDILOL 3.125 MG TAB PO SCH (08:32)
[2016-09-03] MEDS: LISINOPRIL 5 MG TAB PO SCH (08:32)
[2016-09-03] MEDS: glyBURIDE 2.5 MG TAB PO SCH (08:32)
[2016-09-03] MEDS: PANTOPRAZOLE SOD 40 MG DELAYED RELEASE TAB PO SCH (08:33)
[2016-09-03] MEDS: SODIUM CHLORIDE 0.9% FLUSH 5 ML FLUSH FLUSH SCH (08:34)
[2016-09-03] MEDS ORDERED: LISI-519 PO (08:48)
[2016-09-03] MEDS ORDERED: ZOLO50TA PO (08:48)
[2016-09-03] MEDS ORDERED: CARV3.125 PO (08:48)
[2016-09-03] MEDS ORDERED: FURO20TA PO (08:48)
[2016-09-03] MEDS ORDERED: CIPR-9 PO (08:48)
[2016-09-03] MEDS ORDERED: ASPI81TA11 PO (08:48)
[2016-09-03] MEDS ORDERED: POTA-243 PO (08:48)
[2016-09-03] MEDS ORDERED: GLYB2.5T3 PO (08:48)
[2016-09-03] MEDS ORDERED: CIPROFLOXACIN 500 MG TAB PO SCH (09:00)
[2016-09-03] MEDS ORDERED: LIPI20TA PO (09:39)
--- NOTE | 2016-09-03 16:11 | HHI.DS ---
Discharge Summary Admission Date Jul 24, 2016 at 08:49 Discharge Date: Sep 03, 2016 Admitting Diagnosis chest pain, rule out ACS, rule out endocarditis (1) Elevated lipase ICD Code: R74.8 (2) RUQ pain ICD Code: R10.11 (3) Spinal abscess ICD Code: M46.20 (4) Endocarditis, suspected ICD Code: Z03.89 (5) Paraspinal abscess ICD Code: M46.20 Procedures Echocardiogram: Systolic function severely reduced. Ejection fraction 15-20%. No vegetation was noticed. Mild tricuspid regurgitation. 07/26/16: Uncomplicated aspiration complex fluid collection in the lower back bilaterally Brief History - From Admission Pt is a 71-year-old male with a PMH significant for IV drug use. He also reports a history of HLD, HTN, DM that has completely resolved since he loss 100 pounds and has been doing IV drugs. Presented today because of gradually worsening SOB 1 week. The shortness of breath is associated with chest pain that is epigastric and last from seconds to minutes. Both SOB and chest pain occur with exertion but also occurs when at rest. No specific alleviating factors. Chest pain is localized and does not radiate to neck or arm. Described as a stabbing pain. Also endorses fatigue, malaise, decreased appetite, night sweats. Denies a change in weight. Episodes of shortness of breath and chest pain are associated with diaphoresis and nausea but with no vomiting. He has also been having a cough for the last week that is nonproductive and without blood. Denies abdominal pain, dysuria, fevers, worsening back pain. Denies sick contacts or new foods. Does endorse right forearm and left wrist erythema that has improved with draining. CBC/BMP: 09/03/16 0700 09/03/16 0700 Significant Findings Laboratory Tests Test 09/03/16 07:00 Monocytes (%) (Auto) 9.8 % (0.0-8.0) Eosinophils (%) (Auto) 4.5 % (0.0-4.0) Potassium Level 3.4 MEQ/L (3.5-5.1) Blood Urea Nitrogen 24 MG/DL (7-18) Estimat Glomerular Filtration 86 ML/MIN (>89) Rate Random Glucose 151 MG/DL (74-106) Alkaline Phosphatase 200 U/L (45-117) Imaging Last Impressions Lumbar Spine MRI 09/01/16 0000 Signed Impressions: Service Date/Time: Thursday, September 01, 2016 14:21 - CONCLUSION: 1. Post-surgical changes in the posterior soft tissues, substantially improved from the comparison study. 2. Very minimal enhancement in the disc space at L5-S1 at the site of previous surgery, nonspecific. Larry Sharma MD FACR Abdomen/Pelvis CT 08/29/16 0000 Signed Impressions: Service Date/Time: Monday, August 29, 2016 21:09 - CONCLUSION: 1. 2 mm minimally obstructing stone of the left ureterovesical junction. 2. Sub-4 mm nonobstructing bilateral nephrolithiasis. 3. Patchy cortical thinning/scarring of the kidneys, right more so than left and chronic, not significantly changed. 4. Fatty liver. 5. Previous cholecystectomy. Multiple small spilled gallstones are again noted, chronic and unchanged. Most are in the gallbladder fossa region and along the anterior and inferior margin of the liver. Some are also in the pelvic cavity. 6. Diverticulosis of the sigmoid colon but no acute inflammatory changes. Kwesi Hinojosa MD Chest X-Ray 08/13/16 0600 Signed Impressions: Service Date/Time: Saturday, August 13, 2016 06:21 - CONCLUSION: No significant change has occurred. Duglas Celis MD Liver Ultrasound 08/02/16 0000 Signed Impressions: Service Date/Time: Tuesday, August 02, 2016 08:13 - CONCLUSION: 1. The liver is heterogeneous and mildly lobular suggestive of hepatocellular disease such as cirrhosis. 2. There is a trace of fluid adjacent to the liver.. 3. The pancreas was not visualized. Robert Johnson MD Renal Ultrasound 07/31/16 1517 Signed Impressions: Service Date/Time: July 20:19 - CONCLUSION: No evidence of hydronephrosis. Posterior bladder wall thickening or dependent debris. Ascites. Kwesi Coleman MD Abscess Drainage X-Ray 07/26/16 0000 Signed Impressions: Service Date/Time: Tuesday, July 26, 2016 16:35 - CONCLUSION: Uncomplicated aspiration of complex fluid collections in the lower back bilaterally as detailed above. Nikos Kaur MD Soft Tissue Ultrasound 07/25/16 1834 Signed Impressions: Service Date/Time: Monday, July 25, 2016 23:13 - CONCLUSION: In the parasagittal lower back, deep to the subcutaneous tissues, there are bilateral mixed cystic and solid lesion which measure up to 6 cm in size. Kalyan Hayes MD Myocardial Perfusion Scan Nuc Med 07/25/16 0000 Signed Impressions: Service Date/Time: Monday, July 25, 2016 10:43 - CONCLUSION: Ventriculomegaly with large fixed perfusion abnormality and no evidence of stress-induced reversible abnormalities. Severe global hypokinesia with 14%% ejection fraction. RISK CATEGORY: High (>3%% Annual Mortality Rate) Brown Tejeda MD CT Angiography 07/21/16 0000 Signed Impressions: Service Date/Time: Thursday, July 21, 2016 11:06 - CONCLUSION: 1. No evidence of pulmonary embolism. 2. Bilateral effusions and left basilar atelectasis Amos Toledo MD PE at Discharge GENERAL: Well-nourished, well developed patient in no apparent distress. A&Ox3. CARDIOVASCULAR: Regular rate and rhythm. RESPIRATORY: No accessory muscle use. CTAB. GASTROINTESTINAL: Abdomen soft, nondistended and nontender to palpation. No guarding. No hepatomegaly. NEUROLOGICAL: Awake and alert. Normal speech. PSYCHIATRIC: Appropriate mood and affect. Urinary Catheter: No Vascular Central Line Catheter: No Hospital Course This is a 71 year-old male with past medical history of IV drug use, hyperlipidemia, hypertension, diabetes who presented to the hospital because of shortness of breath for a week. Chest pain with epigastric pain. Patient was originally admitted to the family practice residents and patient underwent workup with initial evaluation to rule out acute coronary syndrome which was ruled out. Chest x-ray did indicate blunting the costophrenic angles with some degree of effusion. Patient started on IV Lasix. Cardiology was consulted for congestive heart failure, cardiomyopathy. As indicated that at that time the patient does have history of cocaine abuse and they held off on any beta harshal. Nuclear stress test was performed which did show ventriculomegaly with large fixed perfusion abnormality and no evidence of stress-induced reversible abnormalities with global hypokinesis of 14%. Apparatus Operator recommended Coreg, JENNIFER inhibitor, by mouth Lasix and they're going continue to follow as needed. As indicated by deputy clerk of superior court that the patient may be discharged after nuclear stress test was negative. Laboratory studies performed which did indicate hyperlipidemia with increased risk factors 12%. Patient was recommended and started on high intensity statin treatment. Patient had blood cultures done on presentation and did develop positive cultures with staph coag negative. Urine culture did indicate staph aureus. Patient did undergo x-ray studies which did indicate elongated fluid collections in the posterior paraspinous soft tissues on the right and left without MRI features convincing of abscess. Presumed to be seromas or hematomas. Patient did undergo fluid abscess drainage from his back however that time the cultures did not indicate any abnormal growth. Patient did have a culture done of his arm which did indicate MRSA infection. Patient did undergo echocardiogram which did not indicate any vegetation. Infectious disease was consulted who continued antibiotics. Neurosurgery was consulted. It was indicated by MRI studies of the patient did have previous back hardware that has been removed because of previous osteomyelitis. Neurosurgery evaluated patient who indicated the patient has remote history of L4-S1 fusion with removal of infected hardware 1-1/2 years ago. The patient did not require any neurosurgical intervention nor is he a candidate for any surgery at this time because of his cardiac function. Patient did present with elevated liver enzymes which gastroenterology was consulted for recommendations. Patient did undergo hepatitis panel, HIV panel with out any acute abnormality or findings for any acute hepatitis. Liver enzymes were trended until returned to normal. Patient did develop acute renal failure, likely secondary to possible antibiotic use, aggressive diuresis, IV drug use, nephrology was consulted. Renal functions were monitored in did improve on a daily basis. Renal functions are stable this time. Patient did have difficulty with discharge planning due to unable to obtain outpatient IV treatment due to IV drug use and long-term IV access. At that time is recommended by the family practice residents of the patient be transferred down to [place] for his IV treatment to be completed. While the patient was here his diabetes was controlled. After satisfactory improved. He continues antibiotics until completion of 09/03/16. At that time patient was discharged home in stable condition. Pt Condition on Discharge: Stable Discharge Disposition: Discharge Home Discharge Time: > 30 minutes Discharge Instructions DIET: Follow Instructions for: Heart Healthy Diet, Diabetic Diet Activities you can perform: Regular-No Restrictions Follow up Referrals: Infectious Disease - [address] Jules PCP Follow-up - 1 Week New Medications: Atorvastatin (Lipitor) 20 Mg Tab 20 MG PO HS Take one po at bedtime Cholesterol Management #[address] (Aspirin EC) 81 Mg Tabdr 81 MG PO DAILY cardiac protection #30 TAB Carvedilol (Coreg) 3.125 Mg Tab 3.125 MG PO Q12HR Blood Pressure Management #60 TAB Ciprofloxacin (Cipro) 500 Mg Tab 500 MG PO Q12HR Infection #60 TAB Furosemide (Furosemide) 20 Mg Tab 20 MG PO DAILY Blood Pressure Management #30 TAB Glyburide (Glyburide) 2.5 Mg Tab 1.25 MG PO DAILYAC Blood Sugar Management #30 TAB Lisinopril (Lisinopril) 5 Mg Tab 5 MG PO DAILY Blood Pressure Management #30 TAB Potassium Chloride ER (Klor-Con 10) 10 Meq Tab 10 MEQ PO DAILY Electrolyte replacement #30 TAB Sertraline (Zoloft) 50 Mg Tab 50 MG PO DAILY Depression Control #30 TAB Jalil Gupta Sep 03, 2016 16:11
== END 2016-09-03 11:30 | disposition home or self-care (01) | DRG 291 ==
LOC: NEPC 09:44 → INTOOBSV 11:50 → NEDA 11:50 → N04B 15:00 → OBSVTOIN 07-24 08:49 → PH5A 08-09 06:16 → N04B 08-09 06:17 → PH5A 08-09 11:47
PROVIDERS: ADMIT Hospitalist; ATTEND Hospitalist
PROC: 0H9EXZX Drainage of Left Lower Arm Skin, External Approach, Diagnostic (ICD-10-PCS; principal; 2016-08-23)
PROC: 0H96XZX Drainage of Back Skin, External Approach, Diagnostic (ICD-10-PCS; 2016-08-26)
DX: I50.23 Acute on chronic systolic (congestive) heart failure (principal); G06.1 Intraspinal abscess and granuloma; N17.9 Acute kidney failure, unspecified; E46 Unspecified protein-calorie malnutrition; D68.61 Antiphospholipid syndrome; I42.0 Dilated cardiomyopathy; E11.22 Type 2 diabetes mellitus with diabetic chronic kidney disease; N18.3 Chronic kidney disease, stage 3 (moderate); E87.1 Hypo-osmolality and hyponatremia; G93.89 Other specified disorders of brain; L02.414 Cutaneous abscess of left upper limb; L02.413 Cutaneous abscess of right upper limb; N39.0 Urinary tract infection, site not specified; L76.34 Postprocedural seroma of skin and subcutaneous tissue following other procedure; F11.10 Opioid abuse, uncomplicated; N20.0 Calculus of kidney; F14.10 Cocaine abuse, uncomplicated; E78.5 Hyperlipidemia, unspecified; B95.61 Methicillin susceptible Staphylococcus aureus infection as the cause of diseases classified elsewhere; B95.62 Methicillin resistant Staphylococcus aureus infection as the cause of diseases classified elsewhere; F19.10 Other psychoactive substance abuse, uncomplicated; I12.9 Hypertensive chronic kidney disease with stage 1 through stage 4 chronic kidney disease, or unspecified chronic kidney disease; J45.909 Unspecified asthma, uncomplicated; K57.90 Diverticulosis of intestine, part unspecified, without perforation or abscess without bleeding; F15.90 Other stimulant use, unspecified, uncomplicated; K70.31 Alcoholic cirrhosis of liver with ascites; I07.1 Rheumatic tricuspid insufficiency; K80.50 Calculus of bile duct without cholangitis or cholecystitis without obstruction; F40.240 Claustrophobia; G89.29 Other chronic pain; G62.9 Polyneuropathy, unspecified; T50.2X5A Adverse effect of carbonic-anhydrase inhibitors, benzothiadiazides and other diuretics, initial encounter; K59.00 Constipation, unspecified; T36.8X5A Adverse effect of other systemic antibiotics, initial encounter; Z03.89 Encounter for observation for other suspected diseases and conditions ruled out; Z59.0 Homelessness; Z86.73 Personal history of transient ischemic attack (TIA), and cerebral infarction without residual deficits; Z98.1 Arthrodesis status; Z88.5 Allergy status to narcotic agent; Z87.891 Personal history of nicotine dependence; Z86.14 Personal history of Methicillin resistant Staphylococcus aureus infection; Z23 Encounter for immunization
CPT/HCPCS: 10061; 10160; 71010; 71275; 72158; 74177; 76705; 76775; 76937; 76942; 76999; 77003; 78452; 80048; 80053; 80061; 80069; 80074; 80076; 80202; 80307; 81001; 82103; 82105; 82390; 82550; 82728; 82948; 83036; 83520; 83540; 83550; 83605; 83690; 83735; 83880; 84134; 84484; 85007; 85025; 85027; 85610; 85652; 85730; 86038; 86140; 86256; 86403; 86703; 87015; 87040; 87070; 87086; 87102; 87116; 87147; 87186; 87205; 87206; 90471; 90686; 93005; 93017; 93306; 94150; 94640; 94664; 96360; A9502; A9579; G0008; G0378; J0696; J0878; J1650; J1815; J1940; J2020; J2060; J2785; J3370; J7030; J7050; J7613; Q2038; Q9963; Q9967

== ENCOUNTER 2016-09-13 12:41 | Inpatient (IN) | payer MEDICARE ==
[2016-09-13] VITALS (7 sets, daily range): BP systolic 129–153; BP diastolic 83–90; PULSE 80–106; RESP 18–24; TEMP 93–98.6; O2SAT 97–100
[~2016-09-13] VITALS: Ht 182.9 cm; Wt 72.4 kg
[~2016-09-13 12:41] MED LIST: ASPI81TA11 PO; CARV3.125 PO; CIPR-9 PO; FURO20TA PO; GLYB2.5T3 PO; LIPI20TA PO; LISI-519 PO; POTA-243 PO; ZOLO50TA PO
[2016-09-13] MEDS ORDERED: SODIUM CHLORIDE 0.9% FLUSH 5 ML FLUSH IVF PRN ×2 (13:15→16:45)
[2016-09-13 13:38] LABS: AUTOMATED NEUTROPHIL # 4.8 TH/MM3 (1.8-7.7); BASOPHIL # 0.1 TH/MM3 (0-0.2); BASOPHIL % 0.7 % (0.0-2.0); EOSINOPHIL # 0.2 TH/MM3 (0-0.4); HEMATOCRIT 39.5 % (39.0-51.0); HEMO FLAGS DIFF FINAL; MEAN CELL VOLUME 84.9 FL (80.0-100.0); MEAN CORPUSCULAR HEMOGLOBIN 27.4 PG (27.0-34.0); MEAN CORPUSCULAR HGB CONC 32.3 % (32.0-36.0); NEUT % 63.3 % (16.0-70.0); PLATELET COUNT 168 TH/MM3 (150-450); RED BLOOD COUNT 4.65 MIL/MM3 (4.50-5.90); RED CELL DISTRIBUTION WIDTH 16.2 % (11.6-17.2); WHITE BLOOD COUNT 7.6 TH/MM3 (4.0-11.0)
[2016-09-13 13:42] LABS: APTT (PATIENT) 27.6 SEC (24.3-30.1); PROTHROMBIN TIME - PATIENT 11.2 SEC (9.8-11.6)
--- NOTE | 2016-09-13 13:44 | PD ---
HPI Chief Complaint: Chest Pain Time Seen by Provider: 13:06 Travel History International Travel<30 days: No Contact w/Intl Traveler<30days: No Traveled to known affect area: No History of Present Illness HPI Patient is a 71-year-old male with history of IV drug abuse, who was just admitted for MSSA bacteremia who presents the emergency department with complaint of chest pain and shortness of breath. Patient discharged from our hospital 10 days ago. During that admission he had MSSA bacteremia that was treated, echocardiogram was negative for endocarditis. He also had complaints of chest pain and had a echo that showed some nonischemic cardiomyopathy with a negative nuclear stress test. Patient has a history of Dilaudid, cocaine and methamphetamine abuse but states that he has not used since his hospital discharge. Patient states that he has now had 2-3 days of a substernal chest pain without radiation. Patient states it feels as though he can't catch a deep breath and he feels increased pain when he does take a deep breath. Patient denies any history of pulmonary embolism. PFSH Past Medical History Hx Anticoagulant Therapy: No Arthritis: No Asthma: No Autoimmune Disease: No (ANTI-CARDIO LIPID) Blood Disorders: No Anxiety: No Depression: Yes Heart Rhythm Problems: No Cancer: No Cardiac Catheterization: No Cardiovascular Problems: Yes High Cholesterol: Yes Chemotherapy: No Chest Pain: No (endocarditis) Congestive Heart Failure: No COPD: No Cerebrovascular Accident: Yes (TIAS) Coronary Artery Disease: Yes Diabetes: Yes Patient Takes Glucophage: No Diminished Hearing: No Endocrine: Yes Gastrointestinal Disorders: Yes GERD: No Glaucoma: No Genitourinary: No Headaches: No Hepatitis: No Hiatal Hernia: No Hypertension: Yes Immune Disorder: No Kidney Stones: No Musculoskeletal: Yes Neurologic: Yes Psychiatric: No Reproductive: No Respiratory: Yes Migraines: No Myocardial Infarction: Yes (mother) Radiation Therapy: No Renal Failure: No Seizures: Yes (20 YEARS AGO) Sickle Cell Disease: No Sleep Apnea: No Thyroid Disease: No Ulcer: No Tetanus Vaccination: Unknown Influenza Vaccination: Yes PNEUMOCCOCAL Vaccine (Year): 2007 Past Surgical History AICD: No Appendectomy: Yes Arteriovenous Shunt: No Body Medical Devices: TIERRA IN NECK Cardiac Surgery: No Cholecystectomy: Yes Coronary Artery Bypass Graft: No Ear Surgery: No Endocrine Surgery: No Eye Surgery: No Genitourinary Surgery: No Gynecologic Surgery: No Insulin Pump: No Joint Replacement: No Neurologic Surgery: No Oral Surgery: No Pacemaker: No Thoracic Surgery: No Other Surgery: Yes (COLLAPSED LUNG) Social History Alcohol Use: Yes (NOT OFTEN) Tobacco Use: No Substance Use: Yes (meth, weed, cocaine) Allergies-Medications (Allergen,Severity, Reaction): Coded Allergies: Morphine (Verified Allergy, Severe, Itching, 07/21/16) *MDRO Multi-Drug Resistant Organism (Verified Adverse Reaction, Unknown, ) 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/16 Reported Meds & Prescriptions Reported Meds & Active Scripts Active Lipitor (Atorvastatin Calcium) 20 Mg Tab 20 Mg PO HS Take one po at bedtime Zoloft (Sertraline HCl) 50 Mg Tab 50 Mg PO DAILY Klor-Con 10 (Potassium Chloride) 10 Meq Tab 10 Meq PO DAILY Lisinopril 5 Mg Tab 5 Mg PO DAILY Glyburide 2.5 Mg Tab 1.25 Mg PO DAILYAC Furosemide 20 Mg Tab 20 Mg PO DAILY Cipro (Ciprofloxacin HCl) 500 Mg Tab 500 Mg PO Q12HR Coreg (Carvedilol) 3.125 Mg Tab 3.125 Mg PO Q12HR Aspirin EC (Aspirin) 81 Mg Tabdr 81 Mg PO DAILY Review of Systems Except as stated in HPI: all other systems reviewed are Neg Physical Exam Narrative GENERAL: Elderly male in no acute distress SKIN: Warm and dry. Ecchymosis from recent Lovenox injection to the abdominal wall HEAD: Normocephalic. EYES: No scleral icterus. No injection or drainage. ENT: Mucous membranes pink and moist. NECK: Supple CARDIOVASCULAR: Regular rate and rhythm. No murmur appreciated. RESPIRATORY: No accessory muscle use. Clear to auscultation. Breath sounds equal bilaterally. GASTROINTESTINAL: Abdomen soft, non-tender, nondistended. MUSCULOSKELETAL: No obvious deformities. No edema. NEUROLOGICAL: Awake and alert. Motor grossly within normal limits. Normal speech. PSYCHIATRIC: Appropriate mood and affect; insight and judgment normal. Data Data Last Documented VS Vital Signs Date Time Temp Pulse Resp B/P Pulse Ox O2 Delivery O2 Flow Rate FiO2 09/13/16 13:39 100 Room Air 09/13/16 13:02 100 20 09/13/16 12:42 97.3 129/83 Orders Electrocardiogram (09/13/16 13:06) Basic Metabolic Panel (Bmp) (09/13/16 13:06) Complete Blood Count With Diff (09/13/16 13:06) Prothrombin Time / Inr (Pt) (09/13/16 13:06) Act Partial Throm Time (Ptt) (09/13/16 13:06) Troponin I (09/13/16 13:06) Ecg Monitoring (09/13/16 13:06) Iv Access Insert/Monitor (09/13/16 13:06) Oximetry (09/13/16 13:06) Sodium Chloride 0.9% Flush (Ns Flush) (09/13/16 13:15) Ct Pulmonary Angiogram (09/13/16 13:06) Iohexol 350 Inj (Omnipaque 350 Inj) (09/13/16 14:46) Labs Laboratory Tests Test 09/13/16 13:09 White Blood Count 7.6 TH/MM3 Red Blood Count 4.65 MIL/MM3 Hemoglobin 12.7 GM/DL Hematocrit 39.5 % Mean Corpuscular Volume 84.9 FL Mean Corpuscular Hemoglobin 27.4 PG Mean Corpuscular Hemoglobin 32.3 % Concent Red Cell Distribution Width 16.2 % Platelet Count 168 TH/MM3 Mean Platelet Volume 8.9 FL Neutrophils (%) (Auto) 63.3 % Lymphocytes (%) (Auto) 26.0 % Monocytes (%) (Auto) 8.0 % Eosinophils (%) (Auto) 2.0 % Basophils (%) (Auto) 0.7 % Neutrophils # (Auto) 4.8 TH/MM3 Lymphocytes # (Auto) 2.0 TH/MM3 Monocytes # (Auto) 0.6 TH/MM3 Eosinophils # (Auto) 0.2 TH/MM3 Basophils # (Auto) 0.1 TH/MM3 CBC Comment DIFF FINAL Differential Comment Prothrombin Time 11.2 SEC Prothromb Time International 1.0 RATIO Ratio Activated Partial 27.6 SEC Thromboplast Time Sodium Level 142 MEQ/L Potassium Level 3.7 MEQ/L Chloride Level 107 MEQ/L Carbon Dioxide Level 27.7 MEQ/L Anion Gap 7 MEQ/L Blood Urea Nitrogen 15 MG/DL Creatinine 1.01 MG/DL Estimat Glomerular Filtration 73 ML/MIN Rate Random Glucose 149 MG/DL Calcium Level 9.2 MG/DL Troponin I LESS THAN 0.02 NG/ML MDM Medical Decision Making Medical Screen Exam Complete: Yes Emergency Medical Condition: Yes Medical Record Reviewed: Yes Differential Diagnosis 71-year-old male with history of chronic kidney disease, nonischemic cardiomyopathy and IV drug abuse here 10 days after hospital discharge with MSSA bacteremia with complaints of chest pain, and a sensation that he cannot take a deep breath or pain with a deep breath. Differential includes pleurisy, musculoskeletal, atypical chest pain, septic pulmonary emboli, PE. With a recent negative stress test my suspicion for cardiac ischemia is low. Narrative Course Patient placed on monitor, IV established and blood obtained. A twelve-lead EKG shows sinus rhythm with left axis deviation but no notable ST abnormalities , normal intervals. CBC, BMP, coags, troponin were obtained and unremarkable. CT pulmonary injury gram showed small PE in the right lower lobe with mild right base consolidation and localized infiltrate in the right upper lobe. Patient was given Lovenox and will be admitted for further management. Critical Care Narrative Aggregate critical care time was 45 minutes. Time to perform other separately billable procedures was not included in the critical care time. My time did not include minutes spent treating any other patients simultaneously or on activities that did not directly contribute to the patient's treatment. The services I provided to this patient were to treat and/or prevent clinically significant deterioration that could result in: Cardiopulmonary decompensation, , disability I provided critical care services requiring my management, as noted below: Chart data review, documentation time, medication orders and management, vital sign assessments/reviewing monitor data, ordering and reviewing lab tests, ordering and interpreting/reviewing x-rays and diagnostic studies, care of the patient and discussion of the patient with the admitting physicians. Diagnosis Primary Impression: Pulmonary embolism Qualified Code: I26.99 - Other acute pulmonary embolism without acute cor pulmonale Admitting Information Admitting Physician Requests: it Syeda Gonzáles MD Sep 13, 2016 13:44
[2016-09-13 13:51] LABS: ANION GAP 7 MEQ/L (5-15); BICARBONATE 27.7 MEQ/L (21.0-32.0); BLOOD UREA NITROGEN 15 MG/DL (7-18); CHLORIDE 107 MEQ/L (98-107); GLOMERULAR FILTRATION RATE 73 ML/MIN (>89); POTASSIUM 3.7 MEQ/L (3.5-5.1); SODIUM (NA) 142 MEQ/L (136-145)
[2016-09-13] MEDS ORDERED: IOHEXOL 350 MG/ML 10 ML VIAL (for RAD DIAG) IV ONE (14:46)
--- NOTE | 2016-09-13 15:03 | RADRPT ---
EXAM DATE/TIME: 09/13/2016 14:35 [facility] COMPARISON: CT PULMONARY ANGIOGRAM, July 21, 2016, 11:06. INDICATIONS : Chest pain and shortness of breath. IV CONTRAST: 48 cc Omnipaque 350 (iohexol) IV RADIATION DOSE: 9.5 CTDIvol (mGy) MEDICAL HISTORY : Stroke. Diabetes mellitus type 2. Hypertension. SURGICAL HISTORY : Appendectomy. Cholecystectomy. ENCOUNTER: Initial ACUITY: 3 days PAIN SCALE: 5/10 LOCATION: Bilateral upper chest TECHNIQUE: Volumetric scanning of the chest was performed using a pulmonary embolism protocol MIP images were re constructed. Using automated exposure control and adjustment of the mA and/or kV according to patien t size, radiation dose was kept as low as reasonably achievable to obtain optimal diagnostic quality images. FINDINGS: Small pulmonary embolus seen right lower lobe, for example series 601 image 99. There is right base c onsolidation. A small area of parenchymal consolidation is also seen laterally in the right upper lob e. Tiny right and small left pleural effusions. Heart size within normal limits. There is coronary artery calcification, both right and left-sided. N o lymphadenopathy demonstrated. CONCLUSION: 1. There is a small pulmonary embolus in the right lower lobe. 2. Mild right base consolidation. Also some localized infiltrate in the right upper lobe. 3. Coronary artery calcification. Kwesi Hinojosa MD on September 13, 2016 at 14:59 Board Certified Radiologist. This report was verified electronically.
[2016-09-13] MEDS ORDERED: ENOXAPARIN SODIUM 80 MG/0.8 ML SYRINGE SQ ONE (15:15)
--- NOTE | 2016-09-13 16:13 | HHI.HP ---
[facility] Service Family Medicine Primary Care Physician No Primary Care Physician Admission Diagnosis pulmonary embolism Diagnoses: International Travel<30 Days: No Contact w/Intl Traveler<30days: No Known Affected Area: No History of Present Illness Mr. Lucio is a 71 y/o CM with a PMHx of bacteremia and abscess of the spine s/ p IV drug abuse presents with fatigue and SOB. He states that 2-3 days ago he started experiencing shortness of breath with intermittent chest pain over his lower midsternum. The pain was 7/10 with a dull like quality. The pain did not radiate and nothing alleviated or aggravated his pain. His shortness of breath was intermittent but has increased daily to the point where today he is unable to walk more than 100 feet. He is also felt fatigue over these last 3 days to the point that he was unable to go on his usual walks or get to the bus stop. His only other complaint is increasing pain in the lumbar spine. He states that the pain is similar to the pain he experienced when he was diagnosed with the lumbar spine abscess. He states the pain was 2/10 but has increased to 6/10. The pain is radiating down his R leg and calf. Of note he was recently admitted from 07/21-09/03 for bacteremia. He states that since his discharge he has not used any IV drugs, but has only used marijuana occasionally. (Jermain Kumar MD R1) Review of Systems Constitutional: DENIES: Fever, Chills Endocrine: DENIES: Polyuria Eyes: DENIES: Blurred vision Ears, nose, mouth, throat: DENIES: Throat pain Respiratory: COMPLAINS OF: Shortness of breath, DENIES: Cough Cardiovascular: COMPLAINS OF: Chest pain, DENIES: Palpitations Gastrointestinal: DENIES: Diarrhea, Nausea, Vomiting Genitourinary: DENIES: Dysuria Musculoskeletal: COMPLAINS OF: Back pain Integumentary: DENIES: Rash Hematologic/lymphatic: DENIES: Lymphadenopathy Immunologic/allergic: DENIES: Urticaria Neurologic: COMPLAINS OF: Headache Psychiatric: DENIES: Mood changes (Jermain Kumar MD R1) Past Family Social History Past Medical History Admitted for bacteremia from 07/21/16-09/03/16 IV drug abuse Bacteremia secondary to abscess of the spine. Hypertension-resolved after wt loss Hyperlipidemia-resolved after wt loss Diabetes-resolved after wt loss Antiphospholipid antibody syndrome-use to be on warfarin, stopped 6-7yrs TIA Collapsed R lung Past Surgical History Patient had hardware removed from his back in May 2015 secondary to infection. Appendectomy. Cholecystectomy Numerous back surgeries (6) (Jermain Kumar MD R1) Allergies: Coded Allergies: Morphine (Verified Allergy, Severe, Itching, 07/21/16) *MDRO Multi-Drug Resistant Organism (Verified Adverse Reaction, Unknown, ) 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/16 Family History Father: , ID Mother: CHF Sister: Type 1 DM Brother: Healthy Social History Lives alone in [place] Tobacco: quit 30yrs ago Alcohol: quit >20yrs ago Illicit: IV drug use of methamphetamines, cocaine, Dilaudid, last used in July. Marijuana, last used 2 days ago. (Jermain Kumar MD R1) Physical Exam Vital Signs Vital Signs Date Time Temp Pulse Resp B/P Pulse Ox O2 Delivery O2 Flow Rate FiO2 09/13/16 13:39 100 Room Air 09/13/16 13:02 100 20 99 Room Air 09/13/16 12:42 97.3 104 20 129/83 99 Room Air Physical Exam GENERAL: 71 y/o M lying in bed in NAD SKIN: Cool and dry. Multiple ecchymosis and scratches on EXT. HEENT: Atraumatic, normocephalic with EOMI. Oropharynx clear with MMM. No rhinorrhea. No LAD. CARDIOVASCULAR: Regular rate and rhythm without murmurs, gallops, or rubs. RESPIRATORY: Decreased sounds on the R lower lobe, otherwise CTA. No increased WOB. GASTROINTESTINAL: Abdomen soft, non-tender, nondistended with +BS. No masses appreciated. MUSCULOSKELETAL: Extremities without cyanosis or edema. Calf tenderness BL. NEUROLOGICAL: AAOx3. No gross ABN. Normal speech. Laboratory Laboratory Tests Test 09/13/16 13:09 White Blood Count 7.6 Red Blood Count 4.65 Hemoglobin 12.7 Hematocrit 39.5 Mean Corpuscular Volume 84.9 Mean Corpuscular Hemoglobin 27.4 Mean Corpuscular Hemoglobin 32.3 Concent Red Cell Distribution Width 16.2 Platelet Count 168 Mean Platelet Volume 8.9 Neutrophils (%) (Auto) 63.3 Lymphocytes (%) (Auto) 26.0 Monocytes (%) (Auto) 8.0 Eosinophils (%) (Auto) 2.0 Basophils (%) (Auto) 0.7 Neutrophils # (Auto) 4.8 Lymphocytes # (Auto) 2.0 Monocytes # (Auto) 0.6 Eosinophils # (Auto) 0.2 Basophils # (Auto) 0.1 CBC Comment DIFF FINAL Differential Comment Prothrombin Time 11.2 Prothromb Time International 1.0 Ratio Activated Partial 27.6 Thromboplast Time Sodium Level 142 Potassium Level 3.7 Chloride Level 107 Carbon Dioxide Level 27.7 Anion Gap 7 Blood Urea Nitrogen 15 Creatinine 1.01 Estimat Glomerular Filtration 73 Rate Random Glucose 149 Calcium Level 9.2 Troponin I LESS THAN 0.02 (Jermain Kumar MD R1) Result Diagram: 09/13/16 1309 09/13/[address] Angiography 09/13/16 1306 Signed Impressions: Service Date/Time: Thursday, September 13, 2016 14:35 - CONCLUSION: 1. There is a small pulmonary embolus in the right lower lobe. 2. Mild right base consolidation. Also some localized infiltrate in the right upper lobe. 3. Coronary artery calcification. Kwesi Hinojosa MD (Jermain Kumar MD R1) Assessment and Plan Assessment and Plan Mr. Lucio is a 71 y/o CM with a PMHx of bacteremia and abscess of the spine s/ p IV drug abuse presents with fatigue and SOB admitted for RLL pulmonary embolism. Code Status Full Discussed Condition With Dr. Gonzáles, ER physician Dr. Mina Nunez (Jermain Kumar MD R1) Attending Attestation Patient seen and examined. Case reviewed and discussed with the resident team. Agree with plan of care as discussed with me and documented in the resident note. pt seen in ED on admission (Cesia Enriquez MD) Problem List: (1) Pulmonary embolism Status: Acute Plan: Patient presenting with fatigue, chest pain, and shortness of breath found to have pulmonary embolism. Patient endorses bilateral calf tenderness. No patient recently discharged on 09/03 after extended hospital stay for bacteremia. During stay patient anticoagulated on Lovenox. Patient also endorses history of antiphospholipid antibody syndrome. CTA: Small pulmonary embolus in the right lower lobe. Mild right base consolidation with localized infiltrate in the right upper lobe. Coronary artery calcification. EKG: Sinus rhythm with rate of 99. Left axis deviation. Troponin: Less than 0.02 Medications: Lovenox 63 mg twice a day, team plans to transition to Xarelto by mouth in a.m. (case management consult to assist with outpatient anticoagulation) Aspirin 81 mg daily (2) Low back pain Status: Chronic Plan: Patient with increasing back pain has been diagnosed with spinal abscess in the past. MRI lumbar spine: Pending Tylenol when necessary for pain 1-5, Toradol when necessary for pain 6-10 (3) Bacteremia Status: Acute Plan: Patient recently discharged from extended hospital stay for bacteremia. Continue ciprofloxacin 500 mg twice a day (4) DM2 (diabetes mellitus, type 2) Status: Chronic Plan: Patient with history of diabetes Hold glipizide Low-dose sliding scale insulin per protocol (5) HTN (hypertension) Status: Chronic Plan: Patient with chronic hypertension Continue carvedilol Continue furosemide with potassium Continue lisinopril Hydralazine 10 mg every 6 hours when necessary for SBP greater than 180/DBP greater than 100 (6) CHF (congestive heart failure) Status: Chronic Plan: Patient with history of CHF Please see plan as above (7) Nutrition, metabolism, and development symptoms Status: Acute Plan: Fluids: Patient tolerating fluid PO Diet: Diabetic diet with fluid and salt restriction Electrolytes: Within normal limits, continue monitor DVT prophylaxis: Therapeutic heparin for PE GI prophylaxis: Not indicated (Jermain Kumar MD R1) Physician Certification 2 Midnight Certification Type: Admission for Inpatient Services Order for Inpatient Services The services are ordered in accordance with Medicare regulations or non- Medicare payer requirements, as applicable. In the case of services not specified as inpatient-only, they are appropriately provided as inpatient services in accordance with the 2-midnight benchmark. Estimated LOS (days): 3 3 days is the estimated time the patient will need to remain in the hospital, assuming treatment plan goals are met and no additional complications. Post-Hospital Plan: Home (Jermain Kumar MD R1) Problem Qualifiers (1) Pulmonary embolism: Qualified Code: I26.99 - Other acute pulmonary embolism without acute cor pulmonale (2) Low back pain: Qualified Code: M54.5 - Midline low back pain, unspecified chronicity, with sciatica presence unspecified (3) DM2 (diabetes mellitus, type 2): Qualified Code: E11.8 - Type 2 diabetes mellitus with complication, without long-term current use of insulin (4) HTN (hypertension): Qualified Code: I10 - Essential hypertension (5) CHF (congestive heart failure): Qualified Code: I50.9 - Congestive heart failure, unspecified congestive heart failure chronicity, unspecified congestive heart failure type Jermain Kumar MD R1 Sep 13, 2016 16:13 Cesia Enriquez MD Sep 14, 2016 11:08
[2016-09-13] MEDS: ENOXAPARIN SODIUM 100 MG/ML SYRINGE SQ SCH (18:12)
[2016-09-13] MEDS: SODIUM CHLORIDE 0.9% FLUSH 5 ML FLUSH IVF SCH (19:58)
[2016-09-13] MEDS ORDERED: KETOROLAC TROMETHAMINE 10 MG TAB PO PRN (20:30)
[2016-09-13] MEDS ORDERED: GLUCAGON 1 MG/ML VIAL OTHER PRN (20:30)
[2016-09-13] MEDS ORDERED: DEXTROSE 50% IN WATER 50 ML VIAL(D50) IV PUSH PRN (20:30)
[2016-09-13] MEDS ORDERED: ACETAMINOPHEN 325 MG TAB PO PRN (20:30)
[2016-09-13] MEDS ORDERED: hydrALAZINE HCL 10 MG TAB PO PRN (20:45)
[2016-09-13] MEDS: CIPROFLOXACIN 500 MG TAB PO SCH (22:02)
[2016-09-13] MEDS: CARVEDILOL 3.125 MG TAB PO SCH (22:02)
[2016-09-13] MEDS: ATORVASTATIN 20 MG TAB PO SCH (22:03)
[2016-09-13] MEDS: INSULIN ASPART SUPPLEMENTAL SCALE SQ SCH (22:09)
--- NOTE | 2016-09-13 22:51 | RADRPT ---
EXAM DATE/TIME: 09/13/2016 21:33 [facility] COMPARISON: CT PULMONARY ANGIOGRAM, September 13, 2016, 14:35. INDICATIONS : Pulmonary embolism. MEDICAL HISTORY : Hypercholesterolemia. Seizures. Hypertension. Hearing loss. Transient ischemic attack. Coronary arter y disease. Endocarditis. Diabetes. Depression. Measles. Blood transfusion. MRSA. Anticardiolipin synd bessie. Collapsed lung. SURGICAL HISTORY : Cholecystectomy.Appendectomy. Collapsed lung. Multiple back surgeries. Multiple knee surgeries. ENCOUNTER: Initial ACUITY: 1 day PAIN SCORE: 0/10 LOCATION: Bilateral legs. TECHNIQUE: Venous ultrasound of the left and right leg was performed from the inguinal ligament to the proximal calf. Real-time, color Doppler and spectral tracing, compression and augmentation techniques were us ed. FINDINGS: RIGHT LEG: There is normal compressibility of the deep venous system from the inguinal region to the proximal ca lf. No echogenic clot is seen in the lumen of the common femoral, femoral, popliteal, and posterior tibial veins. There is a normal response of the venous system to proximal and distal augmentation an d respiration. LEFT LEG: There is normal compressibility of the deep venous system from the inguinal region to the proximal ca lf. No echogenic clot is seen in the lumen of the common femoral, femoral, popliteal, and posterior tibial veins. There is a normal response of the venous system to proximal and distal augmentation an d respiration. CONCLUSION: No DVT seen in either lower extremity. Kwesi Hinojosa MD on September 13, 2016 at 22:48 Board Certified Radiologist. This report was verified electronically.
[2016-09-13 23:04] LABS: AMPHETAMINE, URINE NEG (NEG); BARBITURATES, URINE NEG (NEG); COCAINE, URINE NEG (NEG)
[2016-09-14] MEDS: ENOXAPARIN SODIUM 100 MG/ML SYRINGE SQ SCH (05:10)
[2016-09-14 05:52] LABS: HEMATOCRIT 34.7 % (39.0-51.0); MEAN CELL VOLUME 83.6 FL (80.0-100.0); MEAN CORPUSCULAR HEMOGLOBIN 27.7 PG (27.0-34.0); MEAN CORPUSCULAR HGB CONC 33.1 % (32.0-36.0); PLATELET COUNT 158 TH/MM3 (150-450); RED BLOOD COUNT 4.16 MIL/MM3 (4.50-5.90); RED CELL DISTRIBUTION WIDTH 15.9 % (11.6-17.2); REVIEW FLAG FINAL; WHITE BLOOD COUNT 5.6 TH/MM3 (4.0-11.0)
[2016-09-14] MEDS: INSULIN ASPART SUPPLEMENTAL SCALE SQ SCH ×4 (06:00→21:06)
[2016-09-14 06:12] LABS: ALT (GPT) 38 U/L (12-78); ANION GAP 10 MEQ/L (5-15); AST (GOT) 30 U/L (15-37); BICARBONATE 23.4 MEQ/L (21.0-32.0); BLOOD UREA NITROGEN 15 MG/DL (7-18); CHLORIDE 108 MEQ/L (98-107); GLOMERULAR FILTRATION RATE 91 ML/MIN (>89); POTASSIUM 3.9 MEQ/L (3.5-5.1); SODIUM (NA) 141 MEQ/L (136-145)
[2016-09-14 06:14] LABS: ALKALINE PHOSPHATASE 131 U/L (45-117); TOTAL BILIRUBIN ADULT 0.4 MG/DL (0.2-1.0)
[2016-09-14 08:00] VITALS: BP 133/89; PULSE 98; RESP 20; TEMP 95.6; O2SAT 97
[2016-09-14] MEDS: SERTRALINE HCL 50 MG TAB PO SCH (08:29)
[2016-09-14] MEDS: CIPROFLOXACIN 500 MG TAB PO SCH ×2 (08:29→19:42)
[2016-09-14] MEDS: CARVEDILOL 3.125 MG TAB PO SCH ×2 (08:29→19:42)
[2016-09-14] MEDS: FUROSEMIDE 20 MG TAB PO SCH (08:29)
[2016-09-14] MEDS: SODIUM CHLORIDE 0.9% FLUSH 5 ML FLUSH IVF SCH ×2 (08:29→19:42)
[2016-09-14] MEDS: LISINOPRIL 5 MG TAB PO SCH (08:29)
[2016-09-14] MEDS: ASPIRIN EC 81 MG TABEC PO SCH (08:29)
[2016-09-14] MEDS: POTASSIUM CHLORIDE 10 MEQ CONTROLLED RELEASE TAB PO SCH (08:29)
[2016-09-14 08:30] VITALS: O2SAT 94
[2016-09-14] MEDS ORDERED: PNEUMOCOCCAL POLYVALENT INJ 25 MCG/0.5 ML SYR IM ONE (10:00)
--- NOTE | 2016-09-14 10:00 | HHI.HP ---
[facility] Service Family Medicine Primary Care Physician No Primary Care Physician Admission Diagnosis pulmonary embolism Diagnoses: (1) Pulmonary embolism Diagnosis: Principal (2) Low back pain Diagnosis: Principal (3) Bacteremia Diagnosis: Principal (4) DM2 (diabetes mellitus, type 2) Diagnosis: Principal (5) HTN (hypertension) Diagnosis: Principal (6) CHF (congestive heart failure) Diagnosis: Principal (7) Nutrition, metabolism, and development symptoms Diagnosis: Principal International Travel<30 Days: No Contact w/Intl Traveler<30days: No Known Affected Area: No History of Present Illness Mr. Lucio is a 71 y/o CM with a PMHx of bacteremia and abscess of the spine s/ p IV drug abuse who presented with fatigue and SOB. He states that 2-3 days prior to admission he started experiencing shortness of breath with intermittent chest pain over his lower midsternum. The pain was 7/10 with a dull like quality but is sharper today. The pain did not radiate and nothing alleviated or aggravated his pain. His shortness of breath was intermittent but increased daily to the point where today he is unable to walk more than 100 feet. He is also felt fatigue over these last 3-4 days to the point that he was unable to go on his usual walks or get to the bus stop. His only other complaint is increasing pain in the lumbar spine. He states that the pain is similar to the pain he experienced when he was diagnosed with the lumbar spine abscess. He states the pain was 2/10 but has increased to 6/10. The pain is radiating down his R leg and calf. Of note he was recently admitted from 07/21-09/03 for bacteremia. He states that since his discharge he has not used any IV drugs, but has only used marijuana occasionally. At first, he reported taking his po meds and had been sent home on cipro. Today he states he did not fill the prescription for cipro at all and has not taken any abx since discharge from the hospital. He refused MRI of his back on admission and this am as he reports he has claustrophobia and is afraid of the MRI. He agrees to have it done today with some ativan before he has the test done. He denies any fevers or chills since he left the hospital. On September 03 he was sent home on 500 mg of cipro BID for a month but because he has had none, will obtain an MRI and ID consult to see what needs to be done at this point. He also complained of SOB this am for an hour and a half. He had his O2 sat checked and it was fine and now he feels well and was sleeping comfortably when I entered his room this am. Review of Systems Constitutional: DENIES: Fever Respiratory: COMPLAINS OF: Shortness of breath Cardiovascular: COMPLAINS OF: Chest pain, Dyspnea on Exertion Gastrointestinal: DENIES: Abdominal pain Musculoskeletal: COMPLAINS OF: Joint pain, Stiffness, Back pain Integumentary: DENIES: Abnormal pigmentation Other Constitutional: DENIES: Fever, Chills Endocrine: DENIES: Polyuria Eyes: DENIES: Blurred vision Ears, nose, mouth, throat: DENIES: Throat pain Respiratory: COMPLAINS OF: Shortness of breath, DENIES: Cough Cardiovascular: COMPLAINS OF: Chest pain, DENIES: Palpitations Gastrointestinal: DENIES: Diarrhea, Nausea, Vomiting Genitourinary: DENIES: Dysuria Musculoskeletal: COMPLAINS OF: Back pain Integumentary: DENIES: Rash Hematologic/lymphatic: DENIES: Lymphadenopathy Immunologic/allergic: DENIES: Urticaria Neurologic: COMPLAINS OF: Headache Psychiatric: DENIES: Mood changes Past Family Social History Past Medical History Admitted for bacteremia from 07/21/16-09/03/16 IV drug abuse Bacteremia secondary to abscess of the spine. Hypertension-resolved after wt loss Hyperlipidemia-resolved after wt loss Diabetes-resolved after wt loss Antiphospholipid antibody syndrome-used to be on warfarin, stopped 6-7yrs TIA Collapsed R lung Past Surgical History Patient had hardware removed from his back in May 2015 secondary to infection. Appendectomy. Cholecystectomy Numerous back surgeries (6) Allergies: Coded Allergies: Morphine (Verified Allergy, Severe, Itching, 07/21/16) *MDRO Multi-Drug Resistant Organism (Verified Adverse Reaction, Unknown, ) 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/16 Family History Father: , [place] Mother: CHF Sister: Type 1 DM Brother: Healthy Social History Lives alone in [facility] Tobacco: quit 30yrs ago Alcohol: quit >20yrs ago Illicit: IV drug use of methamphetamines, cocaine, Dilaudid, last used in July. Marijuana, last used 2 days ago. Physical Exam Vital Signs Vital Signs Date Time Temp Pulse Resp B/P Pulse Ox O2 Delivery O2 Flow Rate FiO2 09/14/16 08:30 94 21 09/14/16 08:00 95.6 98 20 133/89 97 09/13/16 23:44 97.6 106 18 153/90 98 09/13/16 21:21 97 21 09/13/16 20:00 98.6 100 19 137/90 100 09/13/16 18:26 93.0 103 24 145/87 100 09/13/16 17:00 80 18 130/88 Room Air 09/13/16 13:39 100 Room Air 09/13/16 13:02 100 20 99 Room Air 09/13/16 12:42 97.3 104 20 129/83 99 Room Air Physical Exam GENERAL: 71 y/o M lying in bed in NAD, asleep when we entered the room. no current SOB SKIN: Cool and dry. Multiple ecchymosis and scratches on EXT. HEENT: Atraumatic, normocephalic with EOMI. Oropharynx clear with MMM. No rhinorrhea. No LAD. CARDIOVASCULAR: Regular rate and rhythm without murmurs, gallops, or rubs. RESPIRATORY: Decreased sounds on the R lower lobe, otherwise CTA. No increased WOB. GASTROINTESTINAL: Abdomen soft, non-tender, nondistended with +BS. No masses appreciated. MUSCULOSKELETAL: Extremities without cyanosis or edema. Calf tenderness BL. pain lower lumbar spine not worse with palpation and no external abnormalities seen NEUROLOGICAL: AAOx3. No gross ABN. Normal speech. Laboratory Laboratory Tests Test 09/13/16 09/13/16 09/14/16 13:09 22:30 05:22 White Blood Count 7.6 5.6 Red Blood Count 4.65 4.16 Hemoglobin 12.7 11.5 Hematocrit 39.5 34.7 Mean Corpuscular Volume 84.9 83.6 Mean Corpuscular Hemoglobin 27.4 27.7 Mean Corpuscular Hemoglobin 32.3 33.1 Concent Red Cell Distribution Width 16.2 15.9 Platelet Count 168 158 Mean Platelet Volume 8.9 9.0 Neutrophils (%) (Auto) 63.3 Lymphocytes (%) (Auto) 26.0 Monocytes (%) (Auto) 8.0 Eosinophils (%) (Auto) 2.0 Basophils (%) (Auto) 0.7 Neutrophils # (Auto) 4.8 Lymphocytes # (Auto) 2.0 Monocytes # (Auto) 0.6 Eosinophils # (Auto) 0.2 Basophils # (Auto) 0.1 CBC Comment DIFF FINAL Differential Comment Prothrombin Time 11.2 Prothromb Time International 1.0 Ratio Activated Partial 27.6 Thromboplast Time Sodium Level 142 141 Potassium Level 3.7 3.9 Chloride Level 107 108 Carbon Dioxide Level 27.7 23.4 Anion Gap 7 10 Blood Urea Nitrogen 15 15 Creatinine 1.01 0.84 Estimat Glomerular Filtration 73 91 Rate Random Glucose 149 164 Calcium Level 9.2 9.0 Troponin I LESS THAN 0.02 Urine Opiates Screen NEG Urine Barbiturates Screen NEG Urine Amphetamines Screen NEG Urine Benzodiazepines Screen NEG Urine Cocaine Screen NEG Urine Cannabinoids Screen POS Total Bilirubin 0.4 Aspartate Amino Transf 30 (AST/SGOT) Alanine Aminotransferase 38 (ALT/SGPT) Alkaline Phosphatase 131 Total Protein 6.2 Albumin 3.1 Result Diagram: 09/14/1622 09/14/[address] Angiography 09/13/16 1306 Signed Impressions: Service Date/Time: Tuesday, September 13, 2016 14:35 - CONCLUSION: 1. There is a small pulmonary embolus in the right lower lobe. 2. Mild right base consolidation. Also some localized infiltrate in the right upper lobe. 3. Coronary artery calcification. Kwesi Hinojosa MD Assessment and Plan Assessment and Plan Mr. Lucio is a 71 y/o CM with a PMHx of bacteremia and abscess of the spine s/ p IV drug abuse presents with fatigue and SOB admitted for RLL pulmonary embolism. Problem List: (1) Pulmonary embolism Status: Acute Plan: Patient presenting with fatigue, chest pain, and shortness of breath found to have pulmonary embolism. Patient endorses bilateral calf tenderness. No patient recently discharged on 09/03 after extended hospital stay for bacteremia. During stay patient anticoagulated on Lovenox. Patient also endorses history of antiphospholipid antibody syndrome. CTA: Small pulmonary embolus in the right lower lobe. Mild right base consolidation with localized infiltrate in the right upper lobe. Coronary artery calcification. EKG: Sinus rhythm with rate of 99. Left axis deviation. Troponin: Less than 0.02 Medications: Lovenox 63 mg twice a day, team plans to transition to Xarelto by mouth in a.m. (case management consult to assist with outpatient anticoagulation) Aspirin 81 mg daily (2) Low back pain Status: Chronic Plan: Patient with increasing back pain has been diagnosed with spinal abscess in the past. MRI lumbar spine: Pending, he agrees to do this today. Will ask ID what to do now as he was to take cipro 500 mg BID for a month and has had no abx for 10 plus days and now has worse pain Tylenol when necessary for pain 1-5, Toradol when necessary for pain 6-10 (3) Bacteremia Status: Acute Plan: Patient recently discharged from extended hospital stay for bacteremia. Continue ciprofloxacin 500 mg twice a day, originally he stated he was taking this med but this am admitted he never filled this prescription but does now say he is willing to take antibiotics at home when I explained his infection could possibly return (4) DM2 (diabetes mellitus, type 2) Status: Chronic Plan: Patient with history of diabetes Hold glipizide Low-dose sliding scale insulin per protocol (5) HTN (hypertension) Status: Chronic Plan: Patient with chronic hypertension Continue carvedilol Continue furosemide with potassium Continue lisinopril Hydralazine 10 mg every 6 hours when necessary for SBP greater than 180/DBP greater than 100 (6) CHF (congestive heart failure) Status: Chronic Plan: Patient with history of CHF Please see plan as above (7) Nutrition, metabolism, and development symptoms Status: Acute Plan: Fluids: Patient tolerating fluid PO Diet: Diabetic diet with fluid and salt restriction Electrolytes: Within normal limits, continue monitor DVT prophylaxis: Therapeutic heparin for PE GI prophylaxis: Not indicated Physician Certification 2 Midnight Certification Type: Admission for Inpatient Services Order for Inpatient Services The services are ordered in accordance with Medicare regulations or non- Medicare payer requirements, as applicable. In the case of services not specified as inpatient-only, they are appropriately provided as inpatient services in accordance with the 2-midnight benchmark. Estimated LOS (days): 3 3 days is the estimated time the patient will need to remain in the hospital, assuming treatment plan goals are met and no additional complications. Post-Hospital Plan: Not yet determined Problem Qualifiers (1) Pulmonary embolism: Qualified Code: I26.99 - Other acute pulmonary embolism without acute cor pulmonale (2) Low back pain: Qualified Code: M54.5 - Midline low back pain, unspecified chronicity, with sciatica presence unspecified (3) DM2 (diabetes mellitus, type 2): Qualified Code: E11.8 - Type 2 diabetes mellitus with complication, without long-term current use of insulin (4) HTN (hypertension): Qualified Code: I10 - Essential hypertension (5) CHF (congestive heart failure): Qualified Code: I50.9 - Congestive heart failure, unspecified congestive heart failure chronicity, unspecified congestive heart failure type Cesia Enriquez MD Sep 14, 2016 10:00
[2016-09-14] MEDS ORDERED: LORazepam 2 MG TAB PO ONE (11:00)
[2016-09-14] MEDS ORDERED: GADODIAMIDE PF 287 MG/ML 20 ML VIAL (for RAD MRI) IV ONE (11:52)
[2016-09-14 12:00] VITALS: BP 122/74; PULSE 90; RESP 18; TEMP 96.5; O2SAT 97
--- NOTE | 2016-09-14 12:20 | RADRPT ---
EXAM DATE/TIME: 09/14/2016 11:32 [facility] COMPARISON: CT ABDOMEN & PELVIS W CONTRAST, August 29, 2016, 21:09. MRI LUMBAR SPINE W & W/O CONTRAST, 2016, 14:21. INDICATIONS: Pain. Lower back pain with hardware removed in 2014. CONTRAST: 14 cc Omniscan (gadodiamide) IV MEDICAL HISTORY: Hypertension. Diabetes mellitus type 2. Hypercholesterolemia. Endocarditis. SURGICAL HISTORY: Fusion, lumbar. IVDA. ENCOUNTER: Initial ACUITY: 1 day PAIN SCORE: 5/10 LOCATION: [facility] TECHNIQUE: Multiplanar multisequence MRI of the lumbar spine was performed with and without contrast. FINDINGS: The most caudal appearing lumbar vertebra is numbered as L5. VERTEBRAE: The lumbar vertebral bodies are normal in height and normally aligned. There is evidence of prior re moved surgical hardware with transpedicular screws at the L4, L5 and S1 levels. There is some metall ic susceptibility artifacts seen posteriorly likely from tiny metallic fragments. CONUS: Normal level and configuration. POST CONTRAST: No abnormal areas of contrast enhancement are seen. T12-L1: This demonstrates decreased signal and mild decreased height. Significant impression on the thecal s ac is not seen. L1-L2: The thecal sac has a normal diameter. No evidence of disc bulge or protrusion. The neural foramina are patent bilaterally. L2-L3: The thecal sac has a normal diameter. No evidence of disc bulge or protrusion. The neural foramina are patent bilaterally. L3-L4: The thecal sac has a normal diameter. No evidence of disc bulge or protrusion. The neural foramina are patent bilaterally. L4-L5: The disc space is intact. Significant spinal stenosis is not appreciated. There does appear to be f usion at the posterior elements. The neural foramina are normal. A significant impression on the th ecal sac is not seen. The thecal sac has normal configuration. The neural foramina are normal. The re is fusion at the posterior elements. There does appear to be some increased signal within the ere ctor spinae muscle bilaterally. The abnormal signal in the erector spinae muscles was present previo usly and appears unchanged. L5-S1: The thecal sac has a normal diameter. No evidence of disc bulge or protrusion. The neural foramina are patent bilaterally. CONCLUSION: 1. No surgical hardware is seen. There is evidence of prior transpedicular screws at the L4, L5 and S1 levels. There is fusion at the L4-L5 and L5-S1 posterior elements. Significant epidural enhancem ent or scarring in the spinal canal is not seen. 2. Increased signal within the erector spinae muscles bilaterally at L5 and S1 levels. This is like ly related to the postoperative changed. The configuration is unchanged from the prior exam and not seen. Kwesi Guy MD on September 14, 2016 at 12:04 Board Certified Radiologist. This report was verified electronically.
[2016-09-14 16:00] VITALS: BP 123/82; PULSE 90; RESP 16; TEMP 97; O2SAT 96
--- NOTE | 2016-09-14 16:22 | MB ---
cc: JACKIE DUMONT MD, TANUJA MD DATE OF CONSULTATION: 09/14/2016. REASON FOR CONSULTATION: Patient recently admitted for MSSA. Now admitted for PE and found to have lumbar pain. The patient was recently treated for lumbar spine osteomyelitis. He has a history of IV drug abuse. REQUESTING PHYSICIAN: Dr. Kumar. HISTORY OF PRESENT ILLNESS: This is a 71-year-old white male who was recently treated with IV antibiotics for spinal infection of the lumbar spine. He previously underwent hardware removal followed by antibiotic treatment in May 2015. He was recently admitted and treated for spinal infection with IV antibiotics for six weeks ended on 09/03/16 and then he was subsequently discharged to receive oral ciprofloxacin. The patient was given a prescription for ciprofloxacin to continue for a month after discharge. However, he did not fill the prescription for the ciprofloxacin and states that he was in the process of stabilizing his home situation and was living with friends and he lost the prescription. He never did take the ciprofloxacin. The patient was admitted for shortness of breath and he was found to have a pulmonary embolism. He mentioned that the pain in his lower back was worse than when he left the hospital on 09/03. He states that at that time the pain was 1/10 scale and now it is a 4-6/10. He mentions to me that the pain occurs in certain positions, particularly when he lies flat but it is relieved when he repositions himself in bed or when he stands up and also when he walks the pain is better. He denies chills and he denies fevers. He states that the pain sometimes radiates up the lower spine and a little bit down towards the left buttock area. He denies chills or fever and has no problems with bowel or bladder function. His white blood cell count is normal. A lumbar spine MRI was performed and it shows the L4-L5 disc space is intact. There is some increased signal within erector spinae muscles bilaterally but that was noted to be unchanged from previous. There is no evidence of disk bulge. The changes are felt to be likely due to postoperative change. PAST MEDICAL HISTORY: 1. MSSA bacteremia. 2. History of abscess of the spine. 3. History of spinal osteomyelitis. 4. Hypertension. 5. Hyperlipidemia. 6. Diabetes mellitus noted to have resolved after weight loss. 7. Antiphospholipid antibody syndrome. 8. History of hardware removal from the back May of 2015. 9. Appendectomy. 10. Cholecystectomy. ALLERGIES: NO KNOWN DRUG ALLERGIES. MEDICATIONS: 1. Aspirin. 2. Lasix. 3. Prinivil. 4. Potassium. 5. Zoloft. 6. Coreg. 7. Lipitor. 8. Ciprofloxacin. 9. Insulin. SOCIAL HISTORY: No tobacco. Occasional alcohol. Positive marijuana use. Denies IV drug use but was an IV drug user at one time and reports last use in July. FAMILY HISTORY: Noncontributory. REVIEW OF SYSTEMS: CONSTITUTIONAL: No fever or chills. HEAD, EYES, EARS, NOSE, THROAT: No difficulty of the vision. No diplopia. No difficulty swallowing or soreness of the throat. RESPIRATORY: Significant for shortness of breath. No cough. CARDIOVASCULAR: No palpitations. The patient reports chest pain with deep inspiration. GASTROINTESTINAL: No nausea, vomiting, abdominal pain or diarrhea. GENITOURINARY: No urgency, frequency or dysuria. MUSCULOSKELETAL: Significant for lower back pain. INTEGUMENTARY: No skin rash or itching. HEMATOPOIETIC: No easy bruising or bleeding. NEUROLOGIC: Significant for headache. No difficulty with coordination. PSYCHIATRIC: No confusion and no weight changes. PHYSICAL EXAMINATION: GENERAL: This is a patient slender male who is in no acute distress. He is awake and alert and oriented. VITAL SIGNS: Temperature 96.5, blood pressure 122/74, respirations 18, heart rate 90. HEAD, EYES, EARS, NOSE, THROAT: Head is atraumatic. Extraocular movements grossly intact, pupils reactive to light without icterus. Oropharynx no visible lesions. NECK: Supple without adenopathy. LUNGS: Clear breath sounds bilateral. HEART: Regular rate and rhythm. No murmurs, rubs or gallops. ABDOMEN: Bowel sounds present, soft, no tenderness appreciated. BACK: The lower back has mild tenderness on palpation at the lower spine. There is no induration. RECTAL: Not performed. EXTREMITIES: No clubbing or cyanosis or edema. SKIN: No rash. NEUROLOGIC: Patient alert and oriented. No gross focal findings. PSYCHIATRIC: The patient is calm and cooperative. LABORATORY DATA: WBC 5.6, platelet count 158,000, hemoglobin 11.5. Creatinine 0.84, BUN 15, sodium 141. IMPRESSION: Lumbar pain and likely related to inflammation from prior infection at the lumbar spine. MRI of the lumbar spine does not indicate active ongoing infection. The patient was recently treated for lumbar spine abscess with IV antibiotics. It is very likely that the pain the patient is experiencing is residual from inflammation at his lumbar spine area rather than recurrence of infection. He has no fever and chills and his white blood cell count is normal. RECOMMENDATIONS: 1. Continue the ciprofloxacin oral, which has been started. The patient was due to be taking the ciprofloxacin after he was discharged from the hospital but never filled the prescription. 2. Monitor the pain. The patient has been followed by Dr. Alina Davis on previous hospitalization and I will notify her of his admission so she can continue follow him. Thank you for this consultation. Jackie Dumont MD FD/OPAL /12:27 PM /3:03 PM MTDHomer
[2016-09-14] MEDS: ENOXAPARIN SODIUM 80 MG/0.8 ML SYRINGE SQ SCH (18:23)
--- NOTE | 2016-09-14 18:52 | EKG ---
Date Performed: 09/13/2016 Time Performed: 13:04:49 PTAGE: 71 years EKG: Sinus rhythm MARKED LEFT AXIS DEVIATION NONSPECIFIC T-WAVE ABNORMALITY ABNORMAL ECG Compared to prior tracing no significant change PREVIOUS TRACING : 07/21/2016 21.54 DOCTOR: Duke Veronica Interpretating Date/Time 09/14/2016 18:52:20
[2016-09-14] MEDS: ATORVASTATIN 20 MG TAB PO SCH (19:42)
[2016-09-14 20:00] VITALS: BP 115/68; PULSE 89; RESP 20; TEMP 97.4; O2SAT 96
[2016-09-15] VITALS: BP 113/61; PULSE 90; RESP 22; TEMP 97.2; O2SAT 100
[2016-09-15] MEDS ORDERED: ONDANSETRON HCL 4 MG/2 ML VIAL IV PUSH PRN (04:00)
[2016-09-15 05:03] LABS: HEMATOCRIT 36.3 % (39.0-51.0); MEAN CELL VOLUME 83.3 FL (80.0-100.0); MEAN CORPUSCULAR HEMOGLOBIN 27.2 PG (27.0-34.0); MEAN CORPUSCULAR HGB CONC 32.6 % (32.0-36.0); PLATELET COUNT 176 TH/MM3 (150-450); RED BLOOD COUNT 4.35 MIL/MM3 (4.50-5.90); REVIEW FLAG FINAL; WHITE BLOOD COUNT 6.4 TH/MM3 (4.0-11.0)
[2016-09-15] MEDS: ENOXAPARIN SODIUM 80 MG/0.8 ML SYRINGE SQ SCH (05:09)
[2016-09-15] MEDS: INSULIN ASPART SUPPLEMENTAL SCALE SQ SCH ×3 (05:11→16:42)
[2016-09-15 08:00] VITALS: BP 123/93; PULSE 88; RESP 17; TEMP 98; O2SAT 98
[2016-09-15] MEDS: SERTRALINE HCL 50 MG TAB PO SCH (08:47)
[2016-09-15] MEDS: POTASSIUM CHLORIDE 10 MEQ CONTROLLED RELEASE TAB PO SCH (08:47)
[2016-09-15] MEDS: CARVEDILOL 3.125 MG TAB PO SCH (08:47)
[2016-09-15] MEDS: ASPIRIN EC 81 MG TABEC PO SCH (08:47)
[2016-09-15] MEDS: FUROSEMIDE 20 MG TAB PO SCH (08:47)
[2016-09-15] MEDS: CIPROFLOXACIN 500 MG TAB PO SCH (08:47)
[2016-09-15] MEDS: LISINOPRIL 5 MG TAB PO SCH (08:47)
[2016-09-15] MEDS: SODIUM CHLORIDE 0.9% FLUSH 5 ML FLUSH IVF SCH (08:56)
[2016-09-15] MEDS ORDERED: DOXYCYCLINE HYCLATE 100 MG TAB PO SCH (10:00)
--- NOTE | 2016-09-15 10:26 | HHI.FPPN ---
Subjective Remarks Patient seen and examined this morning. No acute events overnight. Pt states he feels well. Having some back pain. Also having some chest pain, which isn't new and has it at baseline. Otherwise, feels well, no SOB, abdominal pain, leg pain. (Manjit Chery MD R1) Objective Vitals Vital Signs Date Time Temp Pulse Resp B/P Pulse Ox O2 Delivery O2 Flow Rate FiO2 09/15/16 08:00 98.0 88 17 123/93 98 09/15/16 00:00 97.2 90 22 113/61 100 09/14/16 20:00 97.4 89 20 115/68 96 09/14/16 16:00 97.0 90 16 123/82 96 09/14/16 12:00 96.5 90 18 122/74 97 I/O 09/14/16 09/14/16 09/14/16 09/15/16 09/15/16 09/15/16 07:00 15:00 23:00 07:00 15:00 23:00 Intake Total 240 ml 1680 ml 360 ml 120 ml Output Total 350 ml 700 ml 1000 ml Balance -110 ml 980 ml -640 ml 120 ml Intake Oral 240 ml 1680 ml 360 ml 120 ml IV Total 0 ml 0 ml 0 ml Output Urine Total 350 ml 700 ml 1000 ml # Voids 1 # Bowel Movements 0 0 0 0 (Manijt Chery MD R1) Result Diagram: 09/15/16 0429 09/14/16 0522 Objective Remarks GENERAL: 71 y/o M lying in bed in NAD SKIN: Cool and dry. Multiple ecchymosis and scratches on EXT. CARDIOVASCULAR: Regular rate and rhythm without murmurs, gallops, or rubs. RESPIRATORY: CTAB. No increased WOB. GASTROINTESTINAL: Abdomen soft, non-tender, nondistended with +BS. No masses appreciated. MUSCULOSKELETAL: Extremities without cyanosis or edema. No calf tenderness NEUROLOGICAL: AAOx3. No gross ABN. Normal speech. (Manjit Chery MD R1) A/P Assessment and Plan Mr. Lucio is a 71 y/o CM with a PMHx of bacteremia and abscess of the spine s/ p IV drug abuse presents with fatigue and SOB admitted for RLL pulmonary embolism. Discharge Planning Possibly today if able to fill medications (Manjit Chery MD R1) Attending Attestation Patient seen and examined. Case reviewed and discussed with the resident team. Agree with plan of care as discussed with me and documented in the resident note. ordered walk test as he complained of some SOB on exertion. His friend that was in the room says he will help Mr Lucio remember to take his pills properly as he forgets. We discussed that he could get a pill box or other reminder system and that if he missed his pills he would possibly have another PE and they could be fatal. Also discussed how important his abx are to prevent new infection in his spine. (Cesia Enriquez MD) Problem List: (1) Pulmonary embolism Status: Acute Plan: Patient presenting with fatigue, chest pain, and shortness of breath found to have pulmonary embolism. Patient recently discharged on 09/03 after extended hospital stay for bacteremia. During stay patient anticoagulated on Lovenox. Patient also endorses history of antiphospholipid antibody syndrome. CTA: Small pulmonary embolus in the right lower lobe. Mild right base consolidation with localized infiltrate in the right upper lobe. Coronary artery calcification. Medications: -Lovenox 63 mg twice a day -Will hold lovenox this afternoon and start Xarelto 20mg daily at that time -Aspirin 81 mg daily (2) Low back pain Status: Chronic Plan: Patient with increasing back pain has been diagnosed with spinal abscess in the past. -MRI lumbar spine: no sign of abscess -Tylenol when necessary for pain 1-5, Toradol when necessary for pain 6-10 (3) Bacteremia Status: Acute Plan: Patient recently discharged from extended hospital stay for bacteremia. -Continue ciprofloxacin 500 mg twice a day, was not taking at home -ID consulted, appreciate recs, will most likely need course of outpatient therapy (4) DM2 (diabetes mellitus, type 2) Status: Chronic Plan: Patient with history of diabetes Hold glipizide Low-dose sliding scale insulin per protocol (5) HTN (hypertension) Status: Chronic Plan: Patient with chronic hypertension Continue carvedilol Continue furosemide with potassium Continue lisinopril Hydralazine 10 mg every 6 hours when necessary for SBP greater than 180/DBP greater than 100 (6) CHF (congestive heart failure) Status: Chronic Plan: Patient with history of CHF Please see plan as above (7) Nutrition, metabolism, and development symptoms Status: Acute Plan: Fluids: Patient tolerating fluid PO Diet: Diabetic diet with fluid and salt restriction Electrolytes: Within normal limits, continue monitor DVT prophylaxis: Therapeutic heparin for PE, changing to xarelto this afternoon GI prophylaxis: Not indicated (Manjit Chery MD R1) Problem Qualifiers (1) Pulmonary embolism: Qualified Code: I26.99 - Other acute pulmonary embolism without acute cor pulmonale (2) Low back pain: Qualified Code: M54.5 - Midline low back pain, unspecified chronicity, with sciatica presence unspecified (3) DM2 (diabetes mellitus, type 2): Qualified Code: E11.8 - Type 2 diabetes mellitus with complication, without long-term current use of insulin (4) HTN (hypertension): Qualified Code: I10 - Essential hypertension (5) CHF (congestive heart failure): Qualified Code: I50.9 - Congestive heart failure, unspecified congestive heart failure chronicity, unspecified congestive heart failure type Manjit Chery MD R1 Sep 15, 2016 10:26 Cesia Enriquez MD Sep 15, 2016 11:28
[2016-09-15 12:00] VITALS: BP 119/78; PULSE 94; RESP 16; TEMP 97.1; O2SAT 97
--- NOTE | 2016-09-15 12:11 | HHI.DCPOC ---
Discharge Care Plan Diagnosis: (1) DM (diabetes mellitus) (2) Hyperlipidemia (3) HTN (hypertension) (4) Low back pain (5) Pulmonary embolism Goals to Promote Your Health * To prevent worsening of your condition and complications * To maintain your health at the optimal level Directions to Meet Your Goals Take your medications as prescribed Follow your dietary instruction Follow activity as directed Keep your appointments as scheduled Take your immunizations and boosters as scheduled If your symptoms worsen call your PCP, if no PCP go to Urgent Care Center or Emergency Room Smoking is Dangerous to Your Health. Avoid second hand smoke Call the 24-hour hour crisis hotline for domestic abuse at Manjit Chery MD R1 Sep 15, 2016 12:11
--- NOTE | 2016-09-15 13:54 | HHI.IDPN ---
Subjective Subjective Remarks is a 71 y/o CM with PMHx of MSSA spinal osteomyelitis treated x 2. Discharged on oral cipro, unsure if he was taking it. No fever No rash No diarrhea No night sweats Denies doing any drugs. Denies any CP, cough or shortness of breath. Antibiotics Cipro Lines Line sites with no e.o infection Past Medical History reviewed Allergies: Coded Allergies: Morphine (Verified Allergy, Severe, Itching, 07/21/16) *MDRO Multi-Drug Resistant Organism (Verified Adverse Reaction, Unknown, ) 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/16 Objective . Vital Signs Date Time Temp Pulse Resp B/P Pulse Ox O2 Delivery O2 Flow Rate FiO2 09/15/16 12:00 97.1 94 16 119/78 97 09/15/16 08:00 98.0 88 17 123/93 98 09/15/16 00:00 97.2 90 22 113/61 100 09/14/16 20:00 97.4 89 20 115/68 96 09/14/16 16:00 97.0 90 16 123/82 96 09/14/16 09/14/16 09/15/16 15:00 23:00 07:00 Intake Total 1680 ml 360 ml 120 ml Output Total 700 ml 1000 ml Balance 980 ml -640 ml 120 ml Intake Oral 1680 ml 360 ml 120 ml IV Total 0 ml 0 ml Output Urine Total 700 ml 1000 ml # Voids 1 # Bowel Movements 0 0 0 . Laboratory Tests Test 09/14/16 09/15/16 05:22 04:29 White Blood Count 5.6 TH/MM3 6.4 TH/MM3 Red Blood Count 4.16 MIL/MM3 4.35 MIL/MM3 Hemoglobin 11.5 GM/DL 11.8 GM/DL Hematocrit 34.7 % 36.3 % Mean Corpuscular Volume 83.6 FL 83.3 FL Mean Corpuscular Hemoglobin 27.7 PG 27.2 PG Mean Corpuscular Hemoglobin 33.1 % 32.6 % Concent Red Cell Distribution Width 15.9 % 16.0 % Platelet Count 158 TH/MM3 176 TH/MM3 Mean Platelet Volume 9.0 FL 9.1 FL Laboratory Tests Test 09/14/16 09/15/16 05:22 10:42 Sodium Level 141 MEQ/L Potassium Level 3.9 MEQ/L Chloride Level 108 MEQ/L Carbon Dioxide Level 23.4 MEQ/L Anion Gap 10 MEQ/L Blood Urea Nitrogen 15 MG/DL Creatinine 0.84 MG/DL Estimat Glomerular Filtration 91 ML/MIN Rate Random Glucose 164 MG/DL Calcium Level 9.0 MG/DL Total Bilirubin 0.4 MG/DL Aspartate Amino Transf 30 U/L (AST/SGOT) Alanine Aminotransferase 38 U/L (ALT/SGPT) Alkaline Phosphatase 131 U/L Total Protein 6.2 GM/DL Albumin 3.1 GM/DL C-Reactive Protein 2.00 MG/DL Microbiology Date/Time Procedure Status Source Growth 09/14/16 14:45 Aerobic Blood Culture - Preliminary Resulted Blood Peripheral NO GROWTH IN 1 DAY 09/14/16 14:45 Anaerobic Blood Culture - Preliminary Resulted Blood Peripheral NO GROWTH IN 1 DAY 09/14/16 14:50 Aerobic Blood Culture - Preliminary Resulted Blood Peripheral NO GROWTH IN 1 DAY 09/14/16 14:50 Anaerobic Blood Culture - Preliminary Resulted Blood Peripheral NO GROWTH IN 1 DAY Imaging Last Impressions Lower Extremity Ultrasound 09/13/162022 Signed Impressions: Service Date/Time: Tuesday, September 13, 2016 21:33 - CONCLUSION: No DVT seen in either lower extremity. Kwesi Hinojosa MD CT Angiography 09/13/16 1306 Signed Impressions: Service Date/Time: Tuesday, September 13, 2016 14:35 - CONCLUSION: 1. There is a small pulmonary embolus in the right lower lobe. 2. Mild right base consolidation. Also some localized infiltrate in the right upper lobe. 3. Coronary artery calcification. Kwesi Hinojosa MD Physical Exam GENERAL: This is a patient slender male who is in no acute distress. He is awake and alert and oriented. HEAD, EYES, EARS, NOSE, THROAT: Head is atraumatic. Extraocular movements grossly intact, pupils reactive to light without icterus. Oropharynx no visible lesions. NECK: Supple without adenopathy. LUNGS: Clear breath sounds bilateral. HEART: Regular rate and rhythm. No murmurs, rubs or gallops. ABDOMEN: Bowel sounds present, soft, no tenderness appreciated. BACK: The lower back has mild tenderness on palpation at the lower spine. There is no induration. RECTAL: Not performed. EXTREMITIES: No clubbing or cyanosis or edema. SKIN: No rash. NEUROLOGIC: Patient alert and oriented. No gross focal findings. PSYCHIATRIC: The patient is calm and cooperative. Assessment & Plan Remarks MSSA osteomyelitis s/p two 6 week courses of IV antibiotics. was supposed to be on oral cipro but did not fill his scripts. Admitted with PE. BCX negative so far. Recs: Oral Doxy 100 mg po bid. residents to follow up blood cultures till negative. If BCX turn positive patient will have to be admitted for further evaluation. When ready for DC patient needs to follow up with PCP. Doxy 100 mg po bid for 1 month script. But patient needs PCP follow up to complete a 4 month course. Will give only 1 month script to ensure he follows up for labs and monitoring while on antibiotics. Patient instructed re: compliance as well as to continue abstinence from drugs. Lance resident. Alina Davis MD Sep 15, 2016 13:54
[2016-09-15] MEDS ORDERED: RIVAROXABAN 20 MG TAB PO SCH (15:00)
--- NOTE | 2016-09-15 15:58 | HHI.DS ---
Discharge Summary Admission Date Sep 13, 2016 at 15:29 Discharge Date: Sep 15, 2016 Admitting Diagnosis pulmonary embolism (1) Pulmonary embolism Diagnosis: Principal Plan: Patient presenting with fatigue, chest pain, and shortness of breath found to have pulmonary embolism. Patient recently discharged on 09/03 after extended hospital stay for bacteremia. During stay patient anticoagulated on Lovenox. Patient also endorses history of antiphospholipid antibody syndrome. CTA: Small pulmonary embolus in the right lower lobe. Mild right base consolidation with localized infiltrate in the right upper lobe. Coronary artery calcification. Medications: -Lovenox 63 mg twice a day -Will hold lovenox this afternoon and start Xarelto 20mg daily at that time -Aspirin 81 mg daily (2) Low back pain Diagnosis: Secondary Plan: Patient with increasing back pain has been diagnosed with spinal abscess in the past. -MRI lumbar spine: no sign of abscess -Tylenol when necessary for pain 1-5, Toradol when necessary for pain 6-10 (3) Bacteremia Diagnosis: Secondary Plan: Patient recently discharged from extended hospital stay for bacteremia. -Continue ciprofloxacin 500 mg twice a day, was not taking at home -ID consulted, appreciate recs, will most likely need course of outpatient therapy (4) DM2 (diabetes mellitus, type 2) Diagnosis: Secondary Plan: Patient with history of diabetes Hold glipizide Low-dose sliding scale insulin per protocol (5) HTN (hypertension) Diagnosis: Secondary Plan: Patient with chronic hypertension Continue carvedilol Continue furosemide with potassium Continue lisinopril Hydralazine 10 mg every 6 hours when necessary for SBP greater than 180/DBP greater than 100 (6) CHF (congestive heart failure) Diagnosis: Secondary Plan: Patient with history of CHF Please see plan as above (7) Nutrition, metabolism, and development symptoms Diagnosis: Secondary Plan: Fluids: Patient tolerating fluid PO Diet: Diabetic diet with fluid and salt restriction Electrolytes: Within normal limits, continue monitor DVT prophylaxis: Therapeutic heparin for PE, changing to xarelto this afternoon GI prophylaxis: Not indicated Consultants ID Brief History Mr. Lucio is a 71 y/o CM with a PMHx of bacteremia and abscess of the spine s/ p IV drug abuse who presented with fatigue and SOB. He states that 2-3 days prior to admission he started experiencing shortness of breath with intermittent chest pain over his lower midsternum. The pain was 7/10 with a dull like quality but is sharper today. The pain did not radiate and nothing alleviated or aggravated his pain. His shortness of breath was intermittent but increased daily to the point where today he is unable to walk more than 100 feet. He is also felt fatigue over these last 3-4 days to the point that he was unable to go on his usual walks or get to the bus stop. His only other complaint is increasing pain in the lumbar spine. He states that the pain is similar to the pain he experienced when he was diagnosed with the lumbar spine abscess. He states the pain was 2/10 but has increased to 6/10. The pain is radiating down his R leg and calf. Of note he was recently admitted from 07/21-09/03 for bacteremia. He states that since his discharge he has not used any IV drugs, but has only used marijuana occasionally. At first, he reported taking his po meds and had been sent home on cipro. Today he states he did not fill the prescription for cipro at all and has not taken any abx since discharge from the hospital. He refused MRI of his back on admission and this am as he reports he has claustrophobia and is afraid of the MRI. He agrees to have it done today with some ativan before he has the test done. He denies any fevers or chills since he left the hospital. On September 03 he was sent home on 500 mg of cipro BID for a month but because he has had none, will obtain an MRI and ID consult to see what needs to be done at this point. He also complained of SOB this am for an hour and a half. He had his O2 sat checked and it was fine and now he feels well and was sleeping comfortably when I entered his room this am. CBC/BMP: 09/15/16 0429 09/14/16 0522 Significant Findings Laboratory Tests Test 09/13/16 09/13/16 09/14/16 09/15/16 13:09 22:30 05:22 04:29 Hemoglobin 12.7 GM/DL 11.5 GM/DL 11.8 GM/DL (13.0-17.0) (13.0-17.0) (13.0-17.0) Estimat Glomerular Filtration 73 ML/MIN (>89) Rate Random Glucose 149 MG/DL 164 MG/DL (74-106) (74-106) Troponin I LESS THAN 0.02 NG/ML (0.02-0.05) Urine Cannabinoids Screen POS (NEG) Red Blood Count 4.16 MIL/MM3 4.35 MIL/MM3 (4.50-5.90) (4.50-5.90) Hematocrit 34.7 % 36.3 % (39.0-51.0) (39.0-51.0) Chloride Level 108 MEQ/L (98-107) Alkaline Phosphatase 131 U/L (45-117) Total Protein 6.2 GM/DL (6.4-8.2) Albumin 3.1 GM/DL (3.4-5.0) Test 09/15/16 10:42 C-Reactive Protein 2.00 MG/DL (0.00-0.30) Imaging Last Impressions Lower Extremity Ultrasound 09/13/162022 Signed Impressions: Service Date/Time: Tuesday, September 13, 2016 21:33 - CONCLUSION: No DVT seen in either lower extremity. Kwesi Hinojosa MD CT Angiography 09/13/16 1306 Signed Impressions: Service Date/Time: Tuesday, September 13, 2016 14:35 - CONCLUSION: 1. There is a small pulmonary embolus in the right lower lobe. 2. Mild right base consolidation. Also some localized infiltrate in the right upper lobe. 3. Coronary artery calcification. Kwesi Hinojosa MD PE at Discharge GENERAL: 71 y/o M lying in bed in NAD SKIN: Cool and dry. Multiple ecchymosis and scratches on EXT. CARDIOVASCULAR: Regular rate and rhythm without murmurs, gallops, or rubs. RESPIRATORY: CTAB. No increased WOB. GASTROINTESTINAL: Abdomen soft, non-tender, nondistended with +BS. No masses appreciated. MUSCULOSKELETAL: Extremities without cyanosis or edema. No calf tenderness NEUROLOGICAL: AAOx3. No gross ABN. Normal speech. Hospital Course 71 y/o male with history of recent bacteremia and spinal abscess presented with SOB and fatigue. Found to have pulmonary embolism on CTA. Started on therapeutic lovenox and switched to oral xarelto. Patient had not been taking his ciprofloxacin prescribed from last hospitalization for bacteremia, ID was consulted and switched him to doxycycline. Pt was continued on his cardiac medications and diabetes was managed. Pt remained stable and is discharged home in stable condition. with Xarelto and Doxycycline. Patient will need to follow- up with PCP for further prescriptions and lab monitoring. Pt Condition on Discharge: Stable Discharge Disposition: Discharge Home Discharge Instructions DIET: Follow Instructions for: As Tolerated, No Restrictions Activities you can perform: Regular-No Restrictions Follow up Referrals: Infectious Disease - 1 Week Physician - 1 Week New Medications: Doxycycline Hyclate (Doxycycline Hyclate) 100 Mg Tab 100 MG PO Q12H #60 TAB Rivaroxaban (Xarelto) 20 Mg Tab 20 MG PO DAILY@15 #30 TAB Continued Medications: Aspirin DR (Aspirin EC) 81 Mg Tabdr 81 MG PO DAILY cardiac protection #30 TAB Atorvastatin (Lipitor) 20 Mg Tab 20 MG PO HS Take one po at bedtime Cholesterol Management #30 Ref 0 TAB Carvedilol (Coreg) 3.125 Mg Tab 3.125 MG PO Q12HR Blood Pressure Management #60 TAB Furosemide (Furosemide) 20 Mg Tab 20 MG PO DAILY Blood Pressure Management #30 TAB Glyburide (Glyburide) 2.5 Mg Tab 1.25 MG PO DAILYAC Blood Sugar Management #30 TAB Lisinopril (Lisinopril) 5 Mg Tab 5 MG PO DAILY Blood Pressure Management #30 TAB Potassium Chloride ER (Klor-Con 10) 10 Meq Tab 10 MEQ PO DAILY Electrolyte replacement #30 TAB Sertraline (Zoloft) 50 Mg Tab 50 MG PO DAILY Depression Control #30 TAB Discontinued Medications: Ciprofloxacin (Cipro) 500 Mg Tab 500 MG PO Q12HR Infection #60 TAB Manjit Chery MD R1 Sep 15, 2016 15:58
[2016-09-15 16:00] VITALS: BP 116/61; PULSE 97; RESP 16; TEMP 97.5; O2SAT 95
[2016-09-15] MEDS ORDERED: DOXY100T PO (16:05)
[2016-09-15] MEDS ORDERED: XARE20TA PO (16:05)
[2016-09-15 16:40] VITALS: O2SAT 95
[2016-09-16] MEDS ORDERED: RIVAROXABAN 20 MG TAB PO SCH (15:00)
== END 2016-09-15 18:24 | disposition home or self-care (01) | DRG 176 ==
LOC: NEPA 12:41 → NEDA 15:29 → N07B 18:06
PROVIDERS: ADMIT Family Medicine; ATTEND Family Medicine
DX: I26.99 Other pulmonary embolism without acute cor pulmonale (principal); D68.61 Antiphospholipid syndrome; I42.9 Cardiomyopathy, unspecified; I50.9 Heart failure, unspecified; F32.9 Major depressive disorder, single episode, unspecified; E78.00 Pure hypercholesterolemia, unspecified; Z86.73 Personal history of transient ischemic attack (TIA), and cerebral infarction without residual deficits; I25.10 Atherosclerotic heart disease of native coronary artery without angina pectoris; I10 Essential (primary) hypertension; Z86.14 Personal history of Methicillin resistant Staphylococcus aureus infection; Z87.891 Personal history of nicotine dependence; F12.90 Cannabis use, unspecified, uncomplicated; M54.40 Lumbago with sciatica, unspecified side; Z86.61 Personal history of infections of the central nervous system; F40.240 Claustrophobia; Z83.3 Family history of diabetes mellitus; Z82.49 Family history of ischemic heart disease and other diseases of the circulatory system
CPT/HCPCS: 71275; 72158; 80048; 80053; 80307; 82948; 84484; 85025; 85027; 85610; 85730; 86140; 87040; 93005; 93970; 94150; A9579; J1650; J1815; J2405; Q9967

== ENCOUNTER 2016-09-26 17:55 | Inpatient (IN) | payer MEDICARE ==
[~2016-09-26] VITALS: Ht 182.9 cm; Wt 63.0 kg
[~2016-09-26 17:55] MED LIST changes: -CIPR-9 PO; +DOXY100T PO; +XARE20TA PO
[2016-09-26 17:58] VITALS: BP 139/87; PULSE 113; RESP 20; O2SAT 100
--- NOTE | 2016-09-26 18:08 | PD ---
HPI Chief Complaint: shortness of breath Time Seen by Provider: 17:59 Travel History International Travel<30 days: No Contact w/Intl Traveler<30days: No Traveled to known affect area: No History of Present Illness HPI The patient is a 71-year-old male who presents emergency department for shortness of breath. 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 The patient states she was treated with IV antibiotics and discharged home on oral anabiotic's. The patient continues to take oral antibiotics. The patient was then evaluated in the emergency department earlier this month for shortness of breath and diagnosed with a pulmonary embolism the right lower lobe. The patient was placed on Pradaxa and has been taking the Pradaxa as directed. He notes increasing shortness of breath over the last several days with anterior chest pain which he describes as dull. The patient states the chest pain has been present since endocarditis, his daily, dull in nature, nonradiating, worse with exertion. The patient does note a history of endocarditis but denies any history of previous coronary artery disease or myocardial infarction. The patient denies any previous catheterization and had a stress test earlier this year in July. He does note some lower extremity edema which is new over the last 48 hours. He also notes a history congestive heart failure and was smoking , however, quit 30 years ago. He continues to smoke weed intermittently, but denies any IVDA in the last 3 months. He denies any fever, chills, or sweats. PFSH Past Medical History Hx Anticoagulant Therapy: No Arthritis: No Asthma: No Autoimmune Disease: No (ANTI-CARDIO LIPID) Blood Disorders: No Anxiety: No Depression: Yes Heart Rhythm Problems: No Cancer: No Cardiac Catheterization: No Cardiovascular Problems: Yes High Cholesterol: Yes Chemotherapy: No Chest Pain: No (endocarditis) Congestive Heart Failure: No COPD: No Cerebrovascular Accident: Yes (TIAS) Coronary Artery Disease: Yes Diabetes: Yes Diminished Hearing: No Endocrine: Yes Gastrointestinal Disorders: Yes GERD: No Glaucoma: No Genitourinary: No Headaches: No Hepatitis: No Hiatal Hernia: No Hypertension: Yes Immune Disorder: No Kidney Stones: No Musculoskeletal: Yes Neurologic: Yes Psychiatric: No Reproductive: No Respiratory: Yes Migraines: No Myocardial Infarction: Yes (mother) Radiation Therapy: No Renal Failure: No Seizures: Yes (20 YEARS AGO) Sickle Cell Disease: No Sleep Apnea: No Thyroid Disease: No Ulcer: No PNEUMOCCOCAL Vaccine (Year): 2007 Past Surgical History AICD: No Appendectomy: Yes Arteriovenous Shunt: No Body Medical Devices: TIERRA IN NECK Cardiac Surgery: No Cholecystectomy: Yes Coronary Artery Bypass Graft: No Ear Surgery: No Endocrine Surgery: No Eye Surgery: No Genitourinary Surgery: No Gynecologic Surgery: No Insulin Pump: No Joint Replacement: No Neurologic Surgery: No Oral Surgery: No Pacemaker: No Thoracic Surgery: No Other Surgery: Yes (COLLAPSED LUNG) Social History Alcohol Use: Yes (NOT OFTEN) Tobacco Use: No Substance Use: Yes (meth, weed, cocaine) Allergies-Medications (Allergen,Severity, Reaction): Coded Allergies: Morphine (Verified Allergy, Severe, Itching, 07/21/16) *MDRO Multi-Drug Resistant Organism (Verified Adverse Reaction, Unknown, ) 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/16 Reported Meds & Prescriptions Reported Meds & Active Scripts Active Xarelto (Rivaroxaban) 20 Mg Tab 20 Mg PO DAILY@15 Doxycycline Hyclate 100 Mg Tab 100 Mg PO Q12H Aspirin EC (Aspirin) 81 Mg Tabdr 81 Mg PO DAILY Review of Systems Except as stated in HPI: all other systems reviewed are Neg General / Constitutional: No: Fever Cardiovascular: Positive: Chest Pain or Discomfort, Dyspnea on exertion Respiratory: Positive: Shortness of Breath, No: Cough Gastrointestinal: No: Nausea, Vomiting, Abdominal Pain Musculoskeletal: Positive: Edema Neurologic: No: Dizziness Physical Exam Narrative GENERAL: Awake, alert, 71-year-old male appears his stated age and has mild tachypnea but no retractions. SKIN: Warm and dry. HEAD: Atraumatic. Normocephalic. EYES: Pupils equal and round. No injection or drainage. ENT: No nasal bleeding or discharge. Mucous membranes pink and moist. NECK: Trachea midline. No JVD. CARDIOVASCULAR: Regular, tachycardic with a heart rate of 105. RESPIRATORY: Mild tachypnea with a respiratory rate of 22. Minimally diminished breath sounds in the right base. GASTROINTESTINAL: Abdomen soft, non-tender, nondistended. Mild ecchymosis to the lower abdomen secondary to medication injections from previous admission. MUSCULOSKELETAL: No obvious deformities. No clubbing. No cyanosis. Bilateral lower extremity pitting edema 1+. NEUROLOGICAL: Awake and alert. No obvious cranial nerve deficits. Motor grossly within normal limits. Normal speech. PSYCHIATRIC: Appropriate mood and affect; insight and judgment normal. Data Data Last Documented VS Vital Signs Date Time Temp Pulse Resp B/P Pulse Ox O2 Delivery O2 Flow Rate FiO2 09/26/16 18:20 111 100 Nasal Cannula 2 09/26/16 18:20 136/71 09/26/16 17:58 20 Orders Complete Blood Count With Diff (09/26/16 18:01) Comprehensive Metabolic Panel (09/26/16 18:01) B-Type Natriuretic Peptide (09/26/16 18:01) Magnesium (Mg) (09/26/16 18:01) Ckmb (Isoenzyme) Profile (09/26/16 18:01) Troponin I (09/26/16 18:01) Iv Access Insert/Monitor (09/26/16 18:01) Electrocardiogram (09/26/16 18:01) Ecg Monitoring (09/26/16 18:01) Oximetry (09/26/16 18:01) Oxygen Administration (09/26/16 18:01) Chest, Single Ap (09/26/16 18:01) Sodium Chloride 0.9% Flush (Ns Flush) (09/26/16 18:15) Furosemide Inj (Lasix Inj) (09/26/16 18:15) Labs Laboratory Tests Test 09/26/16 18:15 White Blood Count 6.9 TH/MM3 Red Blood Count 4.12 MIL/MM3 Hemoglobin 11.4 GM/DL Hematocrit 35.9 % Mean Corpuscular Volume 87.2 FL Mean Corpuscular Hemoglobin 27.6 PG Mean Corpuscular Hemoglobin 31.7 % Concent Red Cell Distribution Width 19.5 % Platelet Count 257 TH/MM3 Mean Platelet Volume 8.4 FL Neutrophils (%) (Auto) 62.1 % Lymphocytes (%) (Auto) 25.7 % Monocytes (%) (Auto) 8.8 % Eosinophils (%) (Auto) 2.4 % Basophils (%) (Auto) 1.0 % Neutrophils # (Auto) 4.3 TH/MM3 Lymphocytes # (Auto) 1.8 TH/MM3 Monocytes # (Auto) 0.6 TH/MM3 Eosinophils # (Auto) 0.2 TH/MM3 Basophils # (Auto) 0.1 TH/MM3 CBC Comment DIFF FINAL Differential Comment Sodium Level 142 MEQ/L Potassium Level 4.3 MEQ/L Chloride Level 110 MEQ/L Carbon Dioxide Level 25.5 MEQ/L Anion Gap 7 MEQ/L Blood Urea Nitrogen 11 MG/DL Creatinine 0.79 MG/DL Estimat Glomerular Filtration 97 ML/MIN Rate Random Glucose 177 MG/DL Calcium Level 8.9 MG/DL Magnesium Level 1.7 MG/DL Total Bilirubin 0.6 MG/DL Aspartate Amino Transf 26 U/L (AST/SGOT) Alanine Aminotransferase 118 U/L (ALT/SGPT) Alkaline Phosphatase 220 U/L Total Creatine Kinase 75 U/L Troponin I 0.03 NG/ML B-Type Natriuretic Peptide 2208 PG/ML Total Protein 6.5 GM/DL Albumin 3.0 GM/DL [facility] Medical Decision Making Medical Screen Exam Complete: Yes Emergency Medical Condition: Yes Medical Record Reviewed: Yes Interpretation(s) EKG reveals sinus tachycardia with a rate of 106. PVC noted. Nonspecific T- wave changes. Last Impressions Chest X-Ray 09/26/16 1801 Signed Impressions: Service Date/Time: Monday, September 26, 2016 18:04 - CONCLUSION: Abnormal chest. , Similar to prior with slight decrease in confluence of bilateral infiltrates. Kwesi Coleman MD Differential Diagnosis Differential diagnosis includes cardiomyopathy, congestive heart failure, pleural effusion, pneumonia, pulmonary embolism, bronchitis, pneumothorax, hemothorax, ACS. Narrative Course IV was established, labs are drawn and sent, and the patient was placed on cardiac telemetry monitoring and continuous pulse oximetry monitoring. I reviewed the patient's recent admission, he had a nuclear medicine myocardial perfusion scan performed July 25, 2016 which revealed an ejection fraction of 14% with global hypokinesia but no ischemia. The patient recently had a CT pulmonary angiogram performed earlier in September 2016 which revealed a small pulmonary embolism the right lower lobe with mild infiltrate. Therefore, chest x-ray was repeated. The patient is currently anticoagulated and is not hypoxic , was 98% on room air and has no current fever. The patient's chest x-ray continues to show right lower lobe disease, stable with slight decrease in opacities compared to previous x-ray according to radiology. Troponin is negative. The patient had no hypoxia, did have mild tachycardia. However, previous admission one week ago for pulmonary embolism reveals that the patient' s heart rate varied between the high 80s to 110. The patient has been taking the Pradaxa per his report. The patient's BNP is greater than 2200. The patient is currently on Pradaxa and doxycycline as well as a baby aspirin, but is not currently on Coreg or an JENNIFER inhibitor. Patient will be admitted for acute exacerbation of congestive heart failure. Physician Communication Physician Communication The on-call medical service was paged for 23 hour observation. Diagnosis Primary Impression: CHF (congestive heart failure) Qualified Code: I50.9 - Acute on chronic congestive heart failure, unspecified congestive heart failure type Additional Impressions: Dyspnea Qualified Code: R06.09 - Dyspnea on exertion Pulmonary embolism Qualified Code: I27.82 - Other chronic pulmonary embolism without acute cor pulmonale Admitting Information Admitting Physician Requests: Observation Condition: Stable Mark Waldrop MD Sep 26, 2016 18:08
[2016-09-26] MEDS ORDERED: FUROSEMIDE 40 MG/4 ML VIAL IVP ONE (18:15)
[2016-09-26] MEDS ORDERED: SODIUM CHLORIDE 0.9% FLUSH 10 ML FLUSH IVF PRN (18:15)
[2016-09-26 18:20] VITALS: BP 136/71; PULSE 112
--- NOTE | 2016-09-26 18:21 | RADRPT ---
EXAM DATE/TIME: 09/26/2016 18:04 [facility] COMPARISON: CHEST SINGLE AP, August 13, 2016, 6:21. INDICATIONS : Short of breath. MEDICAL HISTORY : Diabetes mellitus type II. Hypertension Prior blood clot in lung. SURGICAL HISTORY : None. ENCOUNTER: Initial ACUITY: 1 week PAIN SCORE: 2/10 LOCATION: Bilateral chest FINDINGS: Patchy interstitial prominence in the lower lung zones bilaterally, slightly improved from prior. Rig ht base pleural fluid and/or thickening is grossly stable. Cardiomediastinal contours are stable with mild cardiac enlargement. CONCLUSION: Abnormal chest., Similar to prior with slight decrease in confluence of bilateral infiltrates. Kwesi Coleman MD on September 26, 2016 at 18:18 Board Certified Radiologist. This report was verified electronically.
[2016-09-26 18:42] LABS: AUTOMATED NEUTROPHIL # 4.3 TH/MM3 (1.8-7.7); BASOPHIL # 0.1 TH/MM3 (0-0.2); EOSINOPHIL # 0.2 TH/MM3 (0-0.4); EOSINOPHIL % 2.4 % (0.0-4.0); HEMATOCRIT 35.9 % (39.0-51.0); HEMO FLAGS DIFF FINAL; LYMPH % 25.7 % (9.0-44.0); LYMPHOCYTE # 1.8 TH/MM3 (1.0-4.8); MEAN CELL VOLUME 87.2 FL (80.0-100.0); MEAN CORPUSCULAR HEMOGLOBIN 27.6 PG (27.0-34.0); MEAN CORPUSCULAR HGB CONC 31.7 % (32.0-36.0); MONO % 8.8 % (0.0-8.0); NEUT % 62.1 % (16.0-70.0); PLATELET COUNT 257 TH/MM3 (150-450); RED BLOOD COUNT 4.12 MIL/MM3 (4.50-5.90); RED CELL DISTRIBUTION WIDTH 19.5 % (11.6-17.2); WHITE BLOOD COUNT 6.9 TH/MM3 (4.0-11.0)
[2016-09-26 18:43] LABS: ALT (GPT) 118 U/L (12-78); ANION GAP 7 MEQ/L (5-15); AST (GOT) 26 U/L (15-37); BICARBONATE 25.5 MEQ/L (21.0-32.0); BLOOD UREA NITROGEN 11 MG/DL (7-18); CHLORIDE 110 MEQ/L (98-107); GLOMERULAR FILTRATION RATE 97 ML/MIN (>89); MAGNESIUM 1.7 MG/DL (1.5-2.5); POTASSIUM 4.3 MEQ/L (3.5-5.1); SODIUM (NA) 142 MEQ/L (136-145)
[2016-09-26 18:47] LABS: ALKALINE PHOSPHATASE 220 U/L (45-117); TOTAL BILIRUBIN ADULT 0.6 MG/DL (0.2-1.0)
[2016-09-26 18:54] LABS: CREATINE KINASE 75 U/L (39-308)
[2016-09-26] MEDS ORDERED: ONDANSETRON HCL 4 MG/2 ML VIAL IVP PRN (20:00)
[2016-09-26] MEDS ORDERED: GLUCAGON 1 MG/ML VIAL OTHER PRN (20:00)
[2016-09-26] MEDS ORDERED: SODIUM CHLORIDE 0.9% FLUSH 10 ML FLUSH IV FLUSH PRN (20:00)
[2016-09-26] MEDS ORDERED: ACETAMINOPHEN 325 MG TAB PO PRN ×2 (20:00)
[2016-09-26] MEDS ORDERED: DEXTROSE 50% IN WATER 50 ML VIAL(D50) IV PUSH PRN (20:00)
[2016-09-26] MEDS ORDERED: traMADol HCL 50 MG TAB PO PRN (20:00)
[2016-09-26] MEDS ORDERED: NITROGLYCERIN 0.4 MG SL 25 TABS/BTL SL PRN (20:00)
[2016-09-26] MEDS ORDERED: SENNOSIDES 8.6 MG TAB PO PRN (20:00)
--- NOTE | 2016-09-26 20:37 | HHI.HP ---
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 He presents to the emergency department for shortness of breath. 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 The patient states he was treated with IV antibiotics and discharged home on oral anabiotic's. The patient continues to take oral antibiotic doxycycline. The patient was then evaluated in the emergency department earlier this month for shortness of breath and diagnosed with a pulmonary embolism the right lower lobe. The patient was placed on Xarelto and has been taking as directed. He notes increasing shortness of breath over the last several days with anterior chest pain which he describes as constant dull discomfort not related to exertion. No radiation of pain. He has associated nausea, anxiety but no palpitations, dizziness and diaphoresis. The patient does note a history of endocarditis but denies any history of previous coronary artery disease or myocardial infarction. The patient denies any previous catheterization and had a non ischemic stress test earlier this year in July. He does note some lower extremity edema which is new over the last 48 hours. He also notes a history congestive heart failure and has not been taking Lasix Coreg and lisinopril. He continues to smoke weed intermittently, but denies any IVDA in the last 3 months. He denies any fever, chills, or sweats. Review of Systems Constitutional: COMPLAINS OF: Fatigue, DENIES: Diaphoretic episodes, Fever, Weight gain, Weight loss, Chills, Dizziness, Change in appetite, Night Sweats Endocrine: DENIES: Heat/cold intolerance, Polydipsia, Polyuria, Polyphagia Eyes: DENIES: Blurred vision, Diplopia, Vision loss, Photosensitivity Ears, nose, mouth, throat: DENIES: Tinnitus, Vertigo, Throat pain, Hoarseness, Epistaxis, Odynophagia Respiratory: COMPLAINS OF: Shortness of breath, DENIES: Cough, Wheezing, Hemoptysis, Sputum production Cardiovascular: COMPLAINS OF: Chest pain, Dyspnea on Exertion, Lower Extremity Edema, DENIES: Palpitations, Syncope, PND, Orthopnea, Claudication Gastrointestinal: DENIES: Abdominal pain, Black stools, Bloody stools, Constipation, Diarrhea, Nausea, Vomiting, Difficulty Swallowing, Anorexia Genitourinary: DENIES: Urinary frequency, Urinary incontinence, Urgency, Hematuria, Dysuria, Nocturia, Penile Discharge Integumentary: DENIES: Rash Neurologic: DENIES: Headache, Localized weakness, Seizures, Tremor, Poor Balance Psychiatric: COMPLAINS OF: Anxiety, DENIES: Confusion, Depression, Hallucinations, Agitation, Suicidal Ideation, Homicidal Ideation, Delusions Past Family Social History Past Medical History As previously mentioned Past Surgical History Appendectomy, cholecystectomy and rods in the neck and back Reported Medications Xarelto (Rivaroxaban) 20 Mg Tab 20 Mg PO DAILY@15 Doxycycline Hyclate 100 Mg Tab 100 Mg PO Q12H Aspirin EC (Aspirin) 81 Mg Tabdr 81 Mg PO DAILY Allergies: Coded Allergies: Morphine (Verified Allergy, Severe, Itching, 07/21/16) *MDRO Multi-Drug Resistant Organism (Verified Adverse Reaction, Unknown, ) 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/16 Family History Heart disease and diabetes mellitus Social History As previously mentioned Physical Exam Vital Signs Vital Signs Date Time Temp Pulse Resp B/P Pulse Ox O2 Delivery O2 Flow Rate FiO2 09/26/16 18:20 111 100 Nasal Cannula 2 09/26/16 18:20 100 Nasal Cannula 2 09/26/16 18:20 112 136/71 09/26/16 18:20 Nasal Cannula 2 09/26/16 17:58 113 20 139/87 100 Physical Exam GENERAL: This is a well-nourished, well-developed patient, in no apparent distress on nasal cannula. SKIN: No rashes, ecchymoses or lesions. Cool and dry. HEAD: Atraumatic. Normocephalic. No temporal or scalp tenderness. EYES: Pupils equal round and reactive. Extraocular motions intact. No scleral icterus. No injection or drainage. ENT: Nose without bleeding, purulent drainage or septal hematoma. Throat without erythema, tonsillar hypertrophy or exudate. Uvula midline. Airway patent. NECK: Trachea midline. No JVD or lymphadenopathy. Supple, nontender, no meningeal signs. CARDIOVASCULAR: Tachycardic without murmur RESPIRATORY: Breath sounds equal bilaterally. No wheezes or rhonchi. Right basal crackles GASTROINTESTINAL: Abdomen soft, slightly tender right upper quadrant, nondistended. Ecchymoses in the lower abdomen from Lovenox. No guarding. MUSCULOSKELETAL: Extremities without clubbing, cyanosis but with bilateral lower extremity pitting edema. No joint tenderness, effusion, or edema noted. No calf tenderness. Negative Homans sign bilaterally. NEUROLOGICAL: Awake and alert. Cranial nerves II through XII intact. Motor and sensory grossly within normal limits. Five out of 5 muscle strength in all muscle groups. Normal speech. Laboratory Laboratory Tests Test 09/26/16 18:15 White Blood Count 6.9 Red Blood Count 4.12 Hemoglobin 11.4 Hematocrit 35.9 Mean Corpuscular Volume 87.2 Mean Corpuscular Hemoglobin 27.6 Mean Corpuscular Hemoglobin 31.7 Concent Red Cell Distribution Width 19.5 Platelet Count 257 Mean Platelet Volume 8.4 Neutrophils (%) (Auto) 62.1 Lymphocytes (%) (Auto) 25.7 Monocytes (%) (Auto) 8.8 Eosinophils (%) (Auto) 2.4 Basophils (%) (Auto) 1.0 Neutrophils # (Auto) 4.3 Lymphocytes # (Auto) 1.8 Monocytes # (Auto) 0.6 Eosinophils # (Auto) 0.2 Basophils # (Auto) 0.1 CBC Comment DIFF FINAL Differential Comment Sodium Level 142 Potassium Level 4.3 Chloride Level 110 Carbon Dioxide Level 25.5 Anion Gap 7 Blood Urea Nitrogen 11 Creatinine 0.79 Estimat Glomerular Filtration 97 Rate Random Glucose 177 Calcium Level 8.9 Magnesium Level 1.7 Total Bilirubin 0.6 Aspartate Amino Transf 26 (AST/SGOT) Alanine Aminotransferase 118 (ALT/SGPT) Alkaline Phosphatase 220 Total Creatine Kinase 75 Troponin I 0.03 B-Type Natriuretic Peptide 2208 Total Protein 6.5 Albumin 3.0 Result Diagram: 09/26/16 18109/26/161814 Imaging EKG tracing interpreted by me with sinus tachycardia with nonspecific ST-T changes Chest x-ray image interpreted by me with bilateral infiltrates Last Impressions Chest X-Ray 09/26/16 1801 Signed Impressions: Service Date/Time: Monday, September 26, 2016 18:04 - CONCLUSION: Abnormal chest. , Similar to prior with slight decrease in confluence of bilateral infiltrates. 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 He presents to the emergency department for shortness of breath. 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 The patient states he was treated with IV antibiotics and discharged home on oral anabiotic. The patient continues to take doxycycline. The patient was then evaluated in the emergency department earlier this month for shortness of breath and diagnosed with a pulmonary embolism in the right lower lobe. The patient was placed on Xarelto and has been taking it as directed. He notes increasing shortness of breath over the last several days with anterior chest pain which he describes as constant dull discomfort not related to exertion. No radiation of pain. He has associated nausea, anxiety but no palpitations, dizziness and diaphoresis. The patient does note a history of endocarditis but denies any history of previous coronary artery disease or myocardial infarction. The patient denies any previous catheterization and had a non ischemic stress test earlier this year in July. He does note some lower extremity edema which is new over the last 48 hours. He also notes a history congestive heart failure and has not been taking Lasix Coreg and lisinopril. He continues to smoke weed intermittently, but denies any IVDA in the last 3 months. He denies any fever, chills, or sweats. Acute on chronic systolic heart failure exacerbation. Patient received IV Lasix in the emergency department and we'll continue monitor response. CHF education, I/O and monitor weight. Repeat BMP and magnesium in the morning. Consider restarting JENNIFER inhibitor and beta harshal in the morning if diuresis is well tolerated patient has been counseled regarding noncompliance Sinus tachycardia secondary to above. Monitor on telemetry Elevated AST and right upper quadrant pain likely secondary to congestive hepatopathy and pulmonary embolism. We'll monitor. Avoid hepatotoxins would not restart statin at this time Chest pain likely secondary to PE. Nonischemic stress test earlier this year. Trend Cardiac enzymes. 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 A1c 8.6 in July 2016 Will restart glyburide. Monitor fingerstick sugars sliding scale coverage and continue outpatient medications as appropriate which are aspirin, Xarelto and doxycycline Code Status Full Discussed Condition With Patient Problem Qualifiers (1) CHF (congestive heart failure): Qualified Code: I50.9 - Acute on chronic congestive heart failure, unspecified congestive heart failure type Alex Alicea MD Sep 26, 2016 20:37
[2016-09-26] MEDS: DOCUSATE SODIUM 100 MG CAP PO SCH (21:00)
[2016-09-26] MEDS: INSULIN ASPART SUPPLEMENTAL SCALE SQ SCH (21:00)
[2016-09-26] MEDS: SODIUM CHLORIDE 0.9% FLUSH 10 ML FLUSH IV FLUSH SCH (21:02)
[2016-09-26] MEDS ORDERED: PILL SPLITTER OTHER PRN (21:15)
[2016-09-26 21:22] VITALS: O2SAT 98
[2016-09-26] MEDS: DOXYCYCLINE HYCLATE 100 MG TAB PO SCH (21:33)
[2016-09-26] MEDS: hydrOXYzine PAMOATE 25 MG CAP PO PRN (21:41)
[2016-09-26 21:42] VITALS: BP 125/82; PULSE 104; RESP 18; O2SAT 99
[2016-09-26 22:50] VITALS: BP 132/93; RESP 18; TEMP 98.7; O2SAT 98
[2016-09-26] MEDS: traMADol HCL 50 MG TAB PO PRN (23:42)
[2016-09-27 02:46] VITALS: PULSE 101
[2016-09-27 03:09] VITALS: BP 124/85; PULSE 100; RESP 18; TEMP 98.5; O2SAT 92
[2016-09-27] MEDS: INSULIN ASPART SUPPLEMENTAL SCALE SQ SCH ×4 (06:23→21:08)
[2016-09-27 06:24] LABS: BICARBONATE 25.3 MEQ/L (21.0-32.0); POTASSIUM 4.1 MEQ/L (3.5-5.1)
[2016-09-27 08:09] VITALS: BP 133/100; PULSE 102; RESP 18; TEMP 97.9; O2SAT 99
--- NOTE | 2016-09-27 08:49 | HHI.PR ---
Subjective Remarks Follow up for CHF exacerbation. The patient reports continued constant dull chest pains located right lower anterior chest, rated 4/10. He also has continued shortness of breath, minimally improved compared to his arrival. Denies any fevers/chills. Denies cough. He reports urinating a lot overnight, no documented output in EMR. Objective Vitals Vital Signs Date Time Temp Pulse Resp B/P Pulse Ox O2 Delivery O2 Flow Rate FiO2 09/27/16 08:09 97.9 102 18 133/100 99 09/27/16 03:09 98.5 100 18 124/85 92 09/27/16 02:46 101 09/26/16 22:50 98.7 18 132/93 98 09/26/16 21:42 104 18 125/82 99 Nasal Cannula 3 09/26/16 21:22 98 Nasal Cannula 3.00 09/26/16 18:20 111 100 Nasal Cannula 2 09/26/16 18:20 100 Nasal Cannula 2 09/26/16 18:20 112 136/71 09/26/16 18:20 Nasal Cannula 2 09/26/16 17:58 113 20 139/87 100 Result Diagram: 09/26/16 1815 09/27/16 0430 Imaging Last Impressions Chest X-Ray 09/26/16 1801 Signed Impressions: Service Date/Time: Monday, September 26, 2016 18:04 - CONCLUSION: Abnormal chest. , Similar to prior with slight decrease in confluence of bilateral infiltrates. Kwesi Coleman MD Objective Remarks GENERAL: Well-nourished, well-developed pleasant male patient in [facility]. SKIN: Warm and dry. No rash. HEENT: Normocephalic. Atraumatic.Pupils equal and round. No scleral icterus. No injection or drainage. Mucous membranes pink and moist. NECK: Supple. Trachea midline. CARDIOVASCULAR: Regular rate and rhythm. S1, S2 noted. No murmur appreciated. RESPIRATORY: No accessory muscle use. Decreased breath sounds at bilateral bases , otherwise clear to auscultation. Breath sounds equal bilaterally. GASTROINTESTINAL: Abdomen soft, non-tender, nondistended. Normoactive bowel sounds x4. MUSCULOSKELETAL: No obvious deformities. Extremities without clubbing, cyanosis , or edema. NEUROLOGICAL: Awake and alert. No obvious cranial nerve deficits. Motor grossly within normal limits. Normal speech. PSYCHIATRIC: Appropriate mood and affect; insight and judgment normal. Medications and IVs Current Medications Medications (Trade) Dose Ordered Sig/Keiko Route Start Time Stop Time Status Last Admin (Nitrostat Sl) 0.4 mg Q5M PRN SL 09/26/16 20:00 (D50w (Vial) Inj) 25 ml UNSCH PRN IV PUSH 09/26/16 20:00 (Glucagon Inj) 1 mg UNSCH PRN OTHER 09/26/16 20:00 (Lasix Inj) 40 mg BID@,18 IV PUSH 09/27/16 09:00 09/27/16 09:34 (Ecotrin Ec) 81 mg DAILY PO 09/27/16 09:00 09/27/16 09:35 (Vibratab) 100 mg Q12H PO 09/26/16 21:00 09/27/16 09:35 (Xarelto) 20 mg DAILY@15 PO 09/27/16 15:00 (NS Flush) 2 ml UNSCH PRN IV FLUSH 09/26/16 20:00 (NS Flush) 2 ml BID IV FLUSH 09/26/16 21:00 09/26/16 21:02 (Tylenol) 650 mg Q4H PRN PO 09/26/16 20:00 (Zofran Inj) 4 mg Q6H PRN IVP 09/26/16 20:00 (Colace) 100 mg Q12H PO 09/26/16 21:00 09/27/16 09:35 (Senokot) 17.2 mg Q12H PRN PO 09/26/16 20:00 (Tylenol) 650 mg Q6H PRN PO 09/26/16 20:00 (Ultram) 50 mg Q4H PRN PO 09/26/16 20:00 (Ultram) 100 mg Q4H PRN PO 09/26/16 20:00 09/26/16 23:42 (Vistaril) 25 mg Q6H PRN PO 09/26/16 20:45 09/26/16 21:41 (Diabeta) 1.25 mg DAILYAC PO 09/27/16 08:00 09/27/16 09:35 (Pill Splitter) 1 ea UNSCH PRN OTHER 09/26/16 21:15 Urinary Catheter: No Vascular Central Line Catheter: No A/P Problem List: (1) CHF (congestive heart failure) ICD Code: I50.9 Status: Acute (2) Elevated liver enzymes ICD Code: R74.8 Status: Acute Assessment and Plan 71-year-old male with a history of endocarditis, IVDA, PE on Xarelto, DM, HTN, HLD, CHF, depression, TIA, presents to the ED for shortness of breath. 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 Also admitted 09/13/16-09/15/16 for Pulmonary Embolism RLL, discharged on Xarelto. He now notes increasing SOB over the last several days, leg edema, and anterior chest pain without radiation , described as constant dull discomfort not related to exertion; associated nausea, anxiety but no palpitations, dizziness and diaphoresis. The patient does note a history of endocarditis but denies any history of previous CAD/MN. The patient denies any previous catheterization and had a non ischemic nuclear stress test 07/25/16, EF 14%. He has not been taking Lasix, Coreg, and lisinopril. He continues to smoke weed intermittently, but denies any IVDA in the last 4 months. Acute on Chronic Systolic Congestive Heart Failure: Continue IV Lasix 40mg bid. CHF education, strict I/O and monitor weight. Monitor BMP, BNP. Restart patient's lisinopril and coreg. Patient has been counseled regarding noncompliance. Unable to start statin with elevated LFTs. Sinus tachycardia: secondary to above. Monitor on telemetry. Restart BB. Elevated AST and RUQ pain likely secondary to congestive hepatopathy and pulmonary embolism. Monitor. Avoid hepatotoxins, would not restart statin at this time. Chest pain: likely secondary to PE as pain at right chest where PE is located. Nonischemic stress test 07/25/16. ACS ruled out with negative serial cardiac enzymes x3 and EKG without acute ischemic changes. Pulmonary Embolism: diagnosed 09/13/[address]-[facility]. Continue patient's Xarelto. 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 Patient counseled on continued cessation. Continue patient's doxycycline. HTN: chronic, restarted patient's Lisinopril and Coreg. Monitor BP. Diabetes Mellitus: Hgb A1c 8.6. Restart glyburide. Monitor Accu-cheks and cover with SSI. Hx of TIA: chronic, continue aspirin. DVT Prophylaxis: on Xarelto Written by Krystal Arteaga, acting as scribe for Dr. Samuel on 09/27/16 at 08:49. All or portions of this note were transcribed by scribJudi BORGES. I, Dr. Rachel Samuel personally performed the history, physical exam, and medical decision making; and confirmed the accuracy of the information in the transcribed note. Authenticated by Dr. Rachel Samuel on 09/27/16 at 08:49. Problem Qualifiers (1) CHF (congestive heart failure): Qualified Code: I50.9 - Acute on chronic congestive heart failure, unspecified congestive heart failure type Krystal Arteaga PA-C Sep 27, 2016 08:49 Rachel Samuel MD Sep 27, 2016 13:02
[2016-09-27] MEDS: SODIUM CHLORIDE 0.9% FLUSH 10 ML FLUSH IV FLUSH SCH ×2 (09:00→21:00)
[2016-09-27] MEDS: FUROSEMIDE 40 MG/4 ML VIAL IV PUSH SCH ×2 (09:34→18:39)
[2016-09-27] MEDS: DOXYCYCLINE HYCLATE 100 MG TAB PO SCH ×2 (09:35→21:07)
[2016-09-27] MEDS: glyBURIDE 2.5 MG TAB PO SCH (09:35)
[2016-09-27] MEDS: ASPIRIN EC 81 MG TABEC PO SCH (09:35)
[2016-09-27] MEDS: DOCUSATE SODIUM 100 MG CAP PO SCH ×2 (09:35→21:07)
[2016-09-27 12:05] VITALS: BP 138/95; PULSE 107; RESP 18; TEMP 97.6; O2SAT 95
[2016-09-27] MEDS: RIVAROXABAN 20 MG TAB PO SCH (15:43)
[2016-09-27] MEDS: hydrOXYzine PAMOATE 25 MG CAP PO PRN (15:43)
[2016-09-27 15:50] VITALS: BP 133/95; PULSE 107; RESP 18; O2SAT 95
--- NOTE | 2016-09-27 16:30 | EKG ---
Date Performed: 09/27/2016 Time Performed: 00:59:09 PTAGE: 71 years EKG: SINUS TACHYCARDIA POSSIBLE LEFT ATRIAL ENLARGEMENT MARKED LEFT AXIS DEVIATION ABNORMAL QRS- T ANGLE Since previous tracing, no significant change noted ABNORMAL ECG PREVIOUS TRACING : 09/26/2016 18.11 DOCTOR: Tung Baires Interpretating Date/Time 09/27/2016 16:29:50
--- NOTE | 2016-09-27 16:30 | EKG ---
Date Performed: 09/27/2016 Time Performed: 09:49:37 PTAGE: 71 years EKG: SINUS TACHYCARDIA POSSIBLE LEFT ATRIAL ENLARGEMENT MARKED LEFT AXIS DEVIATION NONSPECIFIC T -WAVE ABNORMALITY Since previous tracing, no significant change noted ABNORMAL ECG PREVIOUS TRACING : 09/27/2016 00.59 DOCTOR: Tung Baires Interpretating Date/Time 09/27/2016 16:29:37
--- NOTE | 2016-09-27 16:31 | EKG ---
Date Performed: 09/26/2016 Time Performed: 18:11:18 PTAGE: 71 years EKG: SINUS TACHYCARDIA WITH OCCASIONAL VENTRICULAR PREMATURE COMPLEXES POSSIBLE LEFT ATRIAL ENLA RGEMENT BORDERLINE LEFT AXIS DEVIATION NONSPECIFIC ST & T-WAVE ABNORMALITY Since previous tracing, no significant change noted ABNORMAL RHYTHM ECG PREVIOUS TRACING : 09/13/2016 13.04 DOCTOR: Tung Baires Interpretating Date/Time 09/27/2016 16:30:12
[2016-09-27] MEDS: CARVEDILOL 3.125 MG TAB PO SCH (21:08)
[2016-09-27] MEDS: traMADol HCL 50 MG TAB PO PRN (21:08)
[2016-09-27 21:30] VITALS: PULSE 108
[2016-09-28 00:30] VITALS: BP 138/86; PULSE 86; RESP 18; TEMP 97.9; O2SAT 97
[2016-09-28] MEDS: INSULIN ASPART SUPPLEMENTAL SCALE SQ SCH ×4 (06:30→21:00)
--- NOTE | 2016-09-28 08:18 | HHI.PR ---
Subjective Remarks Follow up for CHF exacerbation. The patient reports continued shortness of breath, worse with exertion. Denies fevers/chills/cough. Still with some constant chest discomfort at right anterior chest, minimally improved compared to yesterday. O2 sat 97% on 3L NC. The patient does not wear oxygen at home. Objective Vitals Vital Signs Date Time Temp Pulse Resp B/P Pulse Ox O2 Delivery O2 Flow Rate FiO2 09/28/16 00:30 97.9 86 18 138/86 97 09/27/16 21:30 108 09/27/16 15:50 107 18 133/95 95 09/27/16 15:19 Nasal Cannula 3.00 09/27/16 12:05 97.6 107 18 138/95 95 I/O 09/27/16 09/27/16 09/27/16 09/28/16 09/28/16 09/28/16 07:00 15:00 23:00 07:00 15:00 23:00 Intake Total 200 ml Balance 200 ml Intake Oral 200 ml # Voids 1 3 Result Diagram: 09/26/16 1815 09/27/16 0430 Imaging Last Impressions Chest X-Ray 09/26/16 1801 Signed Impressions: Service Date/Time: Monday, September 26, 2016 18:04 - CONCLUSION: Abnormal chest. , Similar to prior with slight decrease in confluence of bilateral infiltrates. Kwesi Coleman MD Objective Remarks GENERAL: Well-nourished, well-developed pleasant male patient in [facility]. SKIN: Warm and dry. No rash. HEENT: Normocephalic. Atraumatic.Pupils equal and round. No scleral icterus. No injection or drainage. Mucous membranes pink and moist. NECK: Supple. Trachea midline. CARDIOVASCULAR: Regular rate and rhythm. S1, S2 noted. No murmur appreciated. RESPIRATORY: No accessory muscle use. Decreased breath sounds at bilateral bases , otherwise clear to auscultation. Breath sounds equal bilaterally. GASTROINTESTINAL: Abdomen soft, non-tender, nondistended. Normoactive bowel sounds x4. MUSCULOSKELETAL: No obvious deformities. Extremities without clubbing, cyanosis , or edema. NEUROLOGICAL: Awake and alert. No obvious cranial nerve deficits. Motor grossly within normal limits. Normal speech. PSYCHIATRIC: Appropriate mood and affect; insight and judgment normal. Medications and IVs Current Medications Medications (Trade) Dose Ordered Sig/Keiko Route Start Time Stop Time Status Last Admin (Nitrostat Sl) 0.4 mg Q5M PRN SL 09/26/16 20:00 (D50w (Vial) Inj) 25 ml UNSCH PRN IV PUSH 09/26/16 20:00 (Glucagon Inj) 1 mg UNSCH PRN OTHER 09/26/16 20:00 (Lasix Inj) 40 mg BID@09,18 IV PUSH 09/27/16 09:00 09/27/16 18:39 (Ecotrin Ec) 81 mg DAILY PO 09/27/16 09:00 09/27/16 09:35 (Vibratab) 100 mg Q12H PO 09/26/16 21:00 09/27/16 21:07 (Xarelto) 20 mg DAILY@15 PO 09/27/16 15:00 09/27/16 15:43 (NS Flush) 2 ml UNSCH PRN IV FLUSH 09/26/16 20:00 (NS Flush) 2 ml BID IV FLUSH 09/26/16 21:00 09/27/16 21:00 (Tylenol) 650 mg Q4H PRN PO 09/26/16 20:00 (Zofran Inj) 4 mg Q6H PRN IVP 09/26/16 20:00 (Colace) 100 mg Q12H PO 09/26/16 21:00 09/27/16 21:07 (Senokot) 17.2 mg Q12H PRN PO 09/26/16 20:00 (Tylenol) 650 mg Q6H PRN PO 09/26/16 20:00 (Ultram) 50 mg Q4H PRN PO 09/26/16 20:00 (Ultram) 100 mg Q4H PRN PO 09/26/16 20:00 09/27/16 21:08 (Vistaril) 25 mg Q6H PRN PO 09/26/16 20:45 09/27/16 15:43 (Diabeta) 1.25 mg DAILYAC PO 09/27/16 08:00 09/27/16 09:35 (Pill Splitter) 1 ea UNSCH PRN OTHER 09/26/16 21:15 (Prinivil) 5 mg DAILY PO 09/28/16 09:00 (Coreg) 3.125 mg Q12HR PO 09/27/16 21:00 09/27/16 21:08 Urinary Catheter: No Vascular Central Line Catheter: No A/P Problem List: (1) CHF (congestive heart failure) ICD Code: I50.9 Status: Acute (2) Elevated liver enzymes ICD Code: R74.8 Status: Acute Assessment and Plan 71-year-old male with a history of endocarditis, IVDA, PE on Xarelto, DM, HTN, HLD, CHF, depression, TIA, presents to the ED for shortness of breath, R anterior chest pain. 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 Also admitted 09/13/16-09/15/16 for Pulmonary Embolism RLL, discharged on Xarelto. No history of previous CAD/SD. The patient denies any previous catheterization and had a non ischemic nuclear stress test 07/25/16, EF 14%. He has not been taking Lasix, Coreg, and lisinopril. He continues to smoke weed intermittently, but denies any IVDA in the last 4 months. Acute on Chronic Systolic Congestive Heart Failure: Echo 07/23/16 with EF 15-20% . Continue IV Lasix 40mg bid. CHF education, strict I/O and monitor weight. Monitor BMP. BNP 2200 --> 1800. Restarted patient's lisinopril and coreg. Patient has been extensively counseled regarding noncompliance. Unable to start statin with elevated LFTs. Patient needs 3 months of consistent medical management and completion of antibiotic therapy, then f/up with cardiology for eval for AICD. Patient failed home O2 walk test, O2 sat 87% on exertion, case management consult to arrange home O2. Sinus tachycardia: secondary to above. Monitor on telemetry. Restart BB. HR improving. Elevated AST and RUQ pain likely secondary to congestive hepatopathy and pulmonary embolism. Monitor. Avoid hepatotoxins, would not restart statin at this time. Chest pain: likely secondary to PE as pain at right chest where PE is located. Nonischemic stress test 07/25/16. ACS ruled out with negative serial cardiac enzymes x3 and EKG without acute ischemic changes. Pulmonary Embolism: diagnosed 09/13/[address]-[facility]. Continue patient's Xarelto. Case management consult to assist with medication refill. 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 Patient counseled on continued cessation. Continue patient's doxycycline. HTN: chronic, restarted patient's Lisinopril and Coreg. Monitor BP. Diabetes Mellitus: Hgb A1c 8.6. Restart glyburide. Monitor Accu-cheks and cover with SSI. Hx of TIA: chronic, continue aspirin. DVT Prophylaxis: on Xarelto Written by Krystal Arteaga, acting as scribe for Dr. Samuel on 09/28/16 at 09:20 All or portions of this note were transcribed by israel BORGES. I, Dr. Rachel Samuel personally performed the history, physical exam, and medical decision making; and confirmed the accuracy of the information in the transcribed note. Authenticated by Dr. Rachel Samuel on 09/28/16 at 09:20 Problem Qualifiers (1) CHF (congestive heart failure): Qualified Code: I50.9 - Acute on chronic congestive heart failure, unspecified congestive heart failure type Krystal Arteaga PA-C Sep 28, 2016 08:17 Rachel Samuel MD Sep 28, 2016 14:42
[2016-09-28] MEDS: DOCUSATE SODIUM 100 MG CAP PO SCH ×2 (09:35→21:37)
[2016-09-28] MEDS: LISINOPRIL 5 MG TAB PO SCH (09:35)
[2016-09-28] MEDS: DOXYCYCLINE HYCLATE 100 MG TAB PO SCH ×2 (09:35→21:37)
[2016-09-28] MEDS: CARVEDILOL 3.125 MG TAB PO SCH ×2 (09:35→21:39)
[2016-09-28] MEDS: glyBURIDE 2.5 MG TAB PO SCH (09:35)
[2016-09-28] MEDS: FUROSEMIDE 40 MG/4 ML VIAL IV PUSH SCH ×2 (09:35→18:20)
[2016-09-28] MEDS: ASPIRIN EC 81 MG TABEC PO SCH (09:35)
[2016-09-28] MEDS: SODIUM CHLORIDE 0.9% FLUSH 10 ML FLUSH IV FLUSH SCH ×2 (09:36→21:00)
[2016-09-28 10:08] LABS: BICARBONATE 29.9 MEQ/L (21.0-32.0); POTASSIUM 4.3 MEQ/L (3.5-5.1)
[2016-09-28 10:28] VITALS: O2SAT 96
[2016-09-28] MEDS: traMADol HCL 50 MG TAB PO PRN (11:08)
[2016-09-28 11:41] VITALS: BP 130/90; PULSE 109; RESP 18; O2SAT 95
[2016-09-28] MEDS ORDERED: GLYB2.5T3 PO (12:41)
[2016-09-28] MEDS ORDERED: CARV3.125 PO (12:41)
[2016-09-28] MEDS ORDERED: FURO40TA PO (12:41)
[2016-09-28] MEDS ORDERED: LISI-519 PO (12:41)
[2016-09-28] MEDS ORDERED: ASPI81TA11 PO (12:41)
[2016-09-28] MEDS ORDERED: OXYGENTANK NAS.CANULA (12:41)
[2016-09-28] MEDS ORDERED: XARE20TA PO (12:41)
[2016-09-28 16:10] VITALS: BP 137/84; PULSE 103; RESP 18; TEMP 98.2; O2SAT 95
[2016-09-28] MEDS: RIVAROXABAN 20 MG TAB PO SCH (18:23)
[2016-09-28 20:55] VITALS: BP 119/68; PULSE 95; RESP 18; TEMP 97.8; O2SAT 100
[2016-09-28] MEDS: hydrOXYzine PAMOATE 25 MG CAP PO PRN (21:37)
[2016-09-29] VITALS (7 sets, daily range): BP systolic 104–123; BP diastolic 60–81; PULSE 84–97; RESP 18–21; TEMP 97.6–98.8; O2SAT 91–99
[2016-09-29] MEDS: INSULIN ASPART SUPPLEMENTAL SCALE SQ SCH ×4 (06:19→20:36)
--- NOTE | 2016-09-29 07:57 | HHI.PR ---
Subjective Remarks Follow up for CHF exacerbation. The patient reports feeling better again today. He states he was able to sleep well last night. Denies any significant shortness of breath at rest. He was able to ambulate to the restroom with minimal dyspnea. Leg swelling improved. Still having right sided anterior chest pain. He still does not feel ready for discharge. He also reports he cannot fill his prescriptions until 10/04 when he gets his check. Objective Vitals Vital Signs Date Time Temp Pulse Resp B/P Pulse Ox O2 Delivery O2 Flow Rate FiO2 09/29/16 04:52 98.8 88 21 112/68 91 09/29/16 00:33 98.8 89 18 104/60 99 09/28/16 20:55 97.8 95 18 119/68 100 09/28/16 16:10 98.2 103 18 137/84 95 09/28/16 11:41 109 18 130/90 95 09/28/16 10:28 3.00 09/28/16 10:28 96 21 I/O 09/28/16 09/28/16 09/28/16 09/29/16 09/29/16 09/29/16 07:00 15:00 23:00 07:00 15:00 23:00 Intake Total 200 ml 360 ml Output Total 1200 ml Balance 200 ml -840 ml Intake Oral 200 ml 360 ml Output Urine Total 1200 ml # Voids 3 2 Result Diagram: 09/26/16 1815 09/28/16 0855 Imaging Last Impressions Chest X-Ray 09/26/16 1801 Signed Impressions: Service Date/Time: Monday, September 26, 2016 18:04 - CONCLUSION: Abnormal chest. , Similar to prior with slight decrease in confluence of bilateral infiltrates. Kwesi Coleman MD Objective Remarks GENERAL: Well-nourished, well-developed pleasant male patient in [facility]. SKIN: Warm and dry. No rash. HEENT: Normocephalic. Atraumatic.Pupils equal and round. No scleral icterus. No injection or drainage. Mucous membranes pink and moist. NECK: Supple. Trachea midline. CARDIOVASCULAR: Regular rate and rhythm. S1, S2 noted. No murmur appreciated. RESPIRATORY: No accessory muscle use. Minimally decreased breath sounds at bilateral bases, otherwise clear to auscultation, improving. Breath sounds equal bilaterally. GASTROINTESTINAL: Abdomen soft, non-tender, nondistended. Normoactive bowel sounds x4. MUSCULOSKELETAL: No obvious deformities. Extremities without clubbing, cyanosis , or edema. NEUROLOGICAL: Awake and alert. No obvious cranial nerve deficits. Motor grossly within normal limits. Normal speech. PSYCHIATRIC: Appropriate mood and affect; insight and judgment normal. Medications and IVs Current Medications Medications (Trade) Dose Ordered Sig/Keiko Route Start Time Stop Time Status Last Admin (Nitrostat Sl) 0.4 mg Q5M PRN SL 09/26/16 20:00 (D50w (Vial) Inj) 25 ml UNSCH PRN IV PUSH 09/26/16 20:00 (Glucagon Inj) 1 mg UNSCH PRN OTHER 09/26/16 20:00 (Lasix Inj) 40 mg BID@09,18 IV PUSH 09/27/16 09:00 09/28/16 18:20 (Ecotrin Ec) 81 mg DAILY PO 09/27/16 09:00 09/28/16 09:35 (Vibratab) 100 mg Q12H PO 09/26/16 21:00 09/28/16 21:37 (Xarelto) 20 mg DAILY@15 PO 09/27/16 15:00 09/28/16 18:23 (NS Flush) 2 ml UNSCH PRN IV FLUSH 09/26/16 20:00 (NS Flush) 2 ml BID IV FLUSH 09/26/16 21:00 09/28/16 21:00 (Tylenol) 650 mg Q4H PRN PO 09/26/16 20:00 (Zofran Inj) 4 mg Q6H PRN IVP 09/26/16 20:00 (Colace) 100 mg Q12H PO 09/26/16 21:00 09/28/16 21:37 (Senokot) 17.2 mg Q12H PRN PO 09/26/16 20:00 (Tylenol) 650 mg Q6H PRN PO 09/26/16 20:00 (Ultram) 50 mg Q4H PRN PO 09/26/16 20:00 (Ultram) 100 mg Q4H PRN PO 09/26/16 20:00 09/28/16 11:08 (Vistaril) 25 mg Q6H PRN PO 09/26/16 20:45 09/28/16 21:37 (Diabeta) 1.25 mg DAILYAC PO 09/27/16 08:00 09/28/16 09:35 (Pill Splitter) 1 ea UNSCH PRN OTHER 09/26/16 21:15 (Prinivil) 5 mg DAILY PO 09/28/16 09:00 09/28/16 09:35 (Coreg) 3.125 mg Q12HR PO 09/27/16 21:00 09/28/16 21:39 Urinary Catheter: No Vascular Central Line Catheter: No A/P Problem List: (1) CHF (congestive heart failure) ICD Code: I50.9 Status: Acute (2) Elevated liver enzymes ICD Code: R74.8 Status: Acute Assessment and Plan 71-year-old male with a history of endocarditis, IVDA, PE on Xarelto, DM, HTN, HLD, CHF, depression, TIA, presents to the ED for shortness of breath, R anterior chest pain. 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 Also admitted 09/13/16-09/15/16 for Pulmonary Embolism RLL, discharged on Xarelto. No history of previous CAD/MN. The patient denies any previous catheterization and had a non ischemic nuclear stress test 07/25/16, EF 14%. He has not been taking Lasix, Coreg, and lisinopril. He continues to smoke weed intermittently, but denies any IVDA in the last 4 months. Acute on Chronic Systolic Congestive Heart Failure: Echo 07/23/16 with EF 15-20% , seen by cardiology Dr. Alberto in , recommended medical management. Continue IV Lasix 40mg bid. CHF education, strict I/O and monitor weight. Monitor BMP. BNP 2200 --> 1800 --> 1540. Restarted patient's lisinopril and coreg. Patient has been extensively counseled regarding noncompliance. Unable to start statin with elevated LFTs. Continue medical management, needs close f/ up with cardiology for eval for AICD. Patient failed home O2 walk test, O2 sat 87% on exertion, case management consulted to arrange home O2. Repeat walk test tomorrow am. Sinus tachycardia: secondary to above. Monitor on telemetry. Restart BB. HR improving. Elevated AST and RUQ pain likely secondary to congestive hepatopathy and pulmonary embolism. Monitor. Avoid hepatotoxins, would not restart statin at this time. Chest pain: likely secondary to PE as pain at right chest where PE is located. Nonischemic stress test 07/25/16. ACS ruled out with negative serial cardiac enzymes x3 and EKG without acute ischemic changes. Pulmonary Embolism: diagnosed 09/13/[address]. Continue patient's Xarelto. Case management consult to assist with medication refill. 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 Completed 6 weeks IV abx. Patient counseled on continued cessation. Subacute Osteomyelitis: hx of recent spinal hardware removal, completed course of IV antibiotics, Continue patient's doxycycline. Outpatient f/up with ID. HTN: chronic, restarted patient's Lisinopril and Coreg. Monitor BP. Diabetes Mellitus: Hgb A1c 8.6. Restart glyburide. Monitor Accu-cheks and cover with SSI. Hx of TIA: chronic, continue aspirin. DVT Prophylaxis: on Xarelto Written by Krystal Arteaga, acting as scribe for Dr. Samuel on 09/29/16 at 11:25 All or portions of this note were transcribed by scribe Krystal LOPEZ I, Dr. Rachel Samuel personally performed the history, physical exam, and medical decision making; and confirmed the accuracy of the information in the transcribed note. Authenticated by Dr. Rachel Samuel on 09/29/16 at 11:25 Problem Qualifiers (1) CHF (congestive heart failure): Qualified Code: I50.9 - Acute on chronic congestive heart failure, unspecified congestive heart failure type Krystal Arteaga PA-C Sep 29, 2016 07:57 Rachel Samuel MD Sep 29, 2016 14:50
[2016-09-29] MEDS: FUROSEMIDE 40 MG/4 ML VIAL IV PUSH SCH ×2 (08:54→18:16)
[2016-09-29] MEDS: DOCUSATE SODIUM 100 MG CAP PO SCH ×2 (08:54→20:36)
[2016-09-29] MEDS: LISINOPRIL 5 MG TAB PO SCH (08:55)
[2016-09-29] MEDS: glyBURIDE 2.5 MG TAB PO SCH (08:55)
[2016-09-29] MEDS: ASPIRIN EC 81 MG TABEC PO SCH (08:55)
[2016-09-29] MEDS: CARVEDILOL 3.125 MG TAB PO SCH ×2 (08:55→20:36)
[2016-09-29] MEDS: DOXYCYCLINE HYCLATE 100 MG TAB PO SCH ×2 (08:55→20:36)
[2016-09-29] MEDS: SODIUM CHLORIDE 0.9% FLUSH 10 ML FLUSH IV FLUSH SCH ×2 (09:00→20:36)
[2016-09-29] MEDS: traMADol HCL 50 MG TAB PO PRN ×2 (09:01→20:43)
[2016-09-29] MEDS: RIVAROXABAN 20 MG TAB PO SCH (16:46)
[2016-09-30 00:15] VITALS: PULSE 90
[2016-09-30 00:39] VITALS: O2SAT 96
[2016-09-30 01:27] VITALS: BP 96/67; PULSE 87; RESP 18; TEMP 97.4; O2SAT 94
[2016-09-30 03:54] VITALS: BP 108/71; PULSE 84; RESP 18; O2SAT 94
[2016-09-30] MEDS: INSULIN ASPART SUPPLEMENTAL SCALE SQ SCH (06:00)
[2016-09-30 07:27] VITALS: BP 114/80; PULSE 93; TEMP 97.5; O2SAT 100
[2016-09-30] MEDS: SODIUM CHLORIDE 0.9% FLUSH 10 ML FLUSH IV FLUSH SCH (08:48)
[2016-09-30] MEDS: glyBURIDE 2.5 MG TAB PO SCH (08:48)
[2016-09-30] MEDS: LISINOPRIL 5 MG TAB PO SCH (08:49)
[2016-09-30] MEDS: FUROSEMIDE 40 MG/4 ML VIAL IV PUSH SCH (08:49)
[2016-09-30] MEDS: DOXYCYCLINE HYCLATE 100 MG TAB PO SCH (08:49)
[2016-09-30] MEDS: DOCUSATE SODIUM 100 MG CAP PO SCH (08:49)
[2016-09-30] MEDS: CARVEDILOL 3.125 MG TAB PO SCH (08:49)
[2016-09-30] MEDS: ASPIRIN EC 81 MG TABEC PO SCH (08:49)
[2016-09-30] MEDS: hydrOXYzine PAMOATE 25 MG CAP PO PRN (08:59)
--- NOTE | 2016-09-30 09:24 | HHI.DS ---
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 He presents to the emergency department for shortness of breath. 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 The patient states he was treated with IV antibiotics and discharged home on oral anabiotic's. The patient continues to take oral antibiotic doxycycline. The patient was then evaluated in the emergency department earlier this month for shortness of breath and diagnosed with a pulmonary embolism the right lower lobe. The patient was placed on Xarelto and has been taking as directed. He notes increasing shortness of breath over the last several days with anterior chest pain which he describes as constant dull discomfort not related to exertion. No radiation of pain. He has associated nausea, anxiety but no palpitations, dizziness and diaphoresis. The patient does note a history of endocarditis but denies any history of previous coronary artery disease or myocardial infarction. The patient denies any previous catheterization and had a non ischemic stress test earlier this year in July. He does note some lower extremity edema which is new over the last 48 hours. He also notes a history congestive heart failure and has not been taking Lasix Coreg and lisinopril. He continues to smoke weed intermittently, but denies any IVDA in the last 3 months. He denies any fever, chills, or sweats. CBC/BMP: 09/26/16181409/28/16 0855 Significant Findings Laboratory Tests Test 09/28/16 09/29/16 08:55 05:50 Estimat Glomerular Filtration 82 ML/MIN (>89) Rate Random Glucose 138 MG/DL (74-106) B-Type Natriuretic Peptide 1830 PG/ML 1540 PG/ML (0-100) (0-100) Imaging Last Impressions Chest X-Ray 09/26/16 180 Signed Impressions: Service Date/Time: Monday, September 26, 2016 18:04 - CONCLUSION: Abnormal chest. , Similar to prior with slight decrease in confluence of bilateral infiltrates. Kwesi Coleman MD PE at Discharge GENERAL: Well-nourished, well-developed pleasant male patient in [facility]. SKIN: Warm and dry. No rash. HEENT: Normocephalic. Atraumatic.Pupils equal and round. No scleral icterus. No injection or drainage. Mucous membranes pink and moist. NECK: Supple. Trachea midline. CARDIOVASCULAR: Regular rate and rhythm. S1, S2 noted. No murmur appreciated. RESPIRATORY: No accessory muscle use. Minimally decreased breath sounds at bilateral bases, otherwise clear to auscultation, improving. Breath sounds equal bilaterally. GASTROINTESTINAL: Abdomen soft, non-tender, nondistended. Normoactive bowel sounds x4. MUSCULOSKELETAL: No obvious deformities. Extremities without clubbing, cyanosis , or edema. NEUROLOGICAL: Awake and alert. No obvious cranial nerve deficits. Motor grossly within normal limits. Normal speech. PSYCHIATRIC: Appropriate mood and affect; insight and judgment normal. Pt update on day of discharge Feels much better. He is in the chair. Says doesn't have much LE edema. Says sob improved significantly. No n/v/d/c. Denies cough. No n/v/d/c. Hospital Course 71-year-old male with a history of endocarditis, IVDA, PE on Xarelto, DM, HTN, HLD, CHF, depression, TIA, presents to the ED for shortness of breath, R anterior chest pain. 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 Also admitted 09/13/16-09/15/16 for Pulmonary Embolism RLL, discharged on Xarelto. No history of previous CAD/NM. The patient denies any previous catheterization and had a non ischemic nuclear stress test 07/25/16, EF 14%. He has not been taking Lasix, Coreg, and lisinopril. He continues to smoke weed intermittently, but denies any IVDA in the last 4 months. Acute on Chronic Systolic Congestive Heart Failure: Echo 07/23/16 with EF 15-20% , seen by cardiology Dr. Alberto in , recommended medical management. Continue IV Lasix 40mg bid. CHF education, strict I/O and monitor weight. Monitor BMP. BNP 2200 --> 1800 --> 1540. Restarted patient's lisinopril and coreg. Patient has been extensively counseled regarding noncompliance. Unable to start statin with elevated LFTs. Continue medical management, needs close f/ up with cardiology for eval for AICD. Patient failed home O2 walk test, O2 sat 87% on exertion, case management consulted to arrange home O2. Repeat walk test tomorrow am. Sinus tachycardia: secondary to above. Monitor on telemetry. Restart BB. HR improving. Elevated AST and RUQ pain likely secondary to congestive hepatopathy and pulmonary embolism. Monitor. Avoid hepatotoxins, would not restart statin at this time. Chest pain: likely secondary to PE as pain at right chest where PE is located. Nonischemic stress test 07/25/16. ACS ruled out with negative serial cardiac enzymes x3 and EKG without acute ischemic changes. Pulmonary Embolism: diagnosed 09/13/[address]-PA. Continue patient's Xarelto. Case management consult to assist with medication refill. Endocarditis secondary to IVDA: reportedly clean q0elhrru. Completed 6 weeks IV abx. Patient counseled on continued cessation. Subacute Osteomyelitis: hx of recent spinal hardware removal, completed course of IV antibiotics, Continue patient's doxycycline. Outpatient f/up with ID. HTN: chronic, restarted patient's Lisinopril and Coreg. Monitor BP. Diabetes Mellitus: Hgb A1c 8.6. Restart glyburide. Monitor Accu-cheks and cover with SSI. Hx of TIA: chronic, continue aspirin. DVT Prophylaxis: on Xarelto Improved, was discharged home in stable condition, to follow up as OP with PCP and consultants. Prescriptions provided. Counselled excessively regarding compliance with meds, follow up appointments. Pt Condition on Discharge: Stable Discharge Disposition: Discharge Home Discharge Time: <= 30 minutes Discharge Instructions DIET: Follow Instructions for: Heart Healthy Diet, Diabetic Diet Activities you can perform: Regular-No Restrictions Follow up Referrals: Cardiology - 1 Week PCP Follow-up - 3-5 Days New Medications: Furosemide (Furosemide) 40 Mg Tab 40 MG PO DAILY CHF #30 Ref 0 TAB Oxygen tank (Oxygen tank) 1 Ea Tank 2 LITER JULIET[employer] CONTINUOUS Oxygen Concentrator Portable Gaseous 2 L/min via Nasal Cannula Continuous For 99 months HYPOXEMIA PREVENTION #1 CYLINDER Carvedilol (Coreg) 3.125 Mg Tab 3.125 MG PO Q12HR CHF #60 TAB Glyburide (Glyburide) 2.5 Mg Tab 1.25 MG PO DAILYAC Diabetes #30 TAB Lisinopril (Lisinopril) 5 Mg Tab 5 MG PO DAILY CHF #30 TAB Continued Medications: Aspirin DR (Aspirin EC) 81 Mg Tabdr 81 MG PO DAILY cardiac protection #30 TAB (This prescription has been renewed) Doxycycline Hyclate (Doxycycline Hyclate) 100 Mg Tab 100 MG PO Q12H #60 TAB Rivaroxaban (Xarelto) 20 Mg Tab 20 MG PO DAILY@15 pulmonary embolism #30 TAB (This prescription has been renewed ) Rachel Samuel MD Sep 30, 2016 09:24
[2016-09-30 09:35] LABS: BICARBONATE 30.4 MEQ/L (21.0-32.0); POTASSIUM 4.1 MEQ/L (3.5-5.1)
[2016-09-30 10:37] VITALS: PULSE 93
== END 2016-09-30 10:48 | disposition home or self-care (01) | DRG 291 ==
LOC: NEPA 17:55 → NEDA 19:51 → NEPHCDU 22:41 → OBSVTOIN 09-27 12:59
PROVIDERS: ADMIT Hospitalist; ATTEND Hospitalist
DX: I50.23 Acute on chronic systolic (congestive) heart failure (principal); I26.99 Other pulmonary embolism without acute cor pulmonale; N17.9 Acute kidney failure, unspecified; D68.61 Antiphospholipid syndrome; I27.82 Chronic pulmonary embolism; I42.0 Dilated cardiomyopathy; K76.1 Chronic passive congestion of liver; M86.9 Osteomyelitis, unspecified; E11.9 Type 2 diabetes mellitus without complications; R00.0 Tachycardia, unspecified; E78.5 Hyperlipidemia, unspecified; Z86.73 Personal history of transient ischemic attack (TIA), and cerebral infarction without residual deficits; I11.0 Hypertensive heart disease with heart failure; I25.10 Atherosclerotic heart disease of native coronary artery without angina pectoris; R09.02 Hypoxemia; F41.8 Other specified anxiety disorders; F12.90 Cannabis use, unspecified, uncomplicated; Z91.19 Patient's noncompliance with other medical treatment and regimen
CPT/HCPCS: 71010; 76937; 80048; 80053; 82550; 82948; 83735; 83880; 84484; 85025; 93005; 94620; 96374; G0378; J1815; J1940; Q0177

== ENCOUNTER 2016-10-08 20:52 | Emergency (ER) | payer MEDICARE ==
[~2016-10-08] VITALS: Ht 182.9 cm; Wt 64.0 kg
[~2016-10-08 20:52] MED LIST changes: -FURO20TA PO; +FURO40TA PO; -LIPI20TA PO; +OXYGENTANK NAS.CANULA; -POTA-243 PO; -ZOLO50TA PO
[2016-10-08 20:58] VITALS: BP 128/83; PULSE 110; RESP 16; TEMP 98.3; O2SAT 100
[2016-10-08 21:52] LABS: AUTOMATED NEUTROPHIL # 5.4 TH/MM3 (1.8-7.7); BASOPHIL % 0.5 % (0.0-2.0); HEMATOCRIT 40.2 % (39.0-51.0); HEMO FLAGS DIFF FINAL; LYMPH % 13.7 % (9.0-44.0); MEAN CELL VOLUME 86.1 FL (80.0-100.0); MEAN CORPUSCULAR HEMOGLOBIN 28.2 PG (27.0-34.0); MEAN CORPUSCULAR HGB CONC 32.8 % (32.0-36.0); MONO % 8.8 % (0.0-8.0); PLATELET COUNT 222 TH/MM3 (150-450); RED BLOOD COUNT 4.66 MIL/MM3 (4.50-5.90); RED CELL DISTRIBUTION WIDTH 19.1 % (11.6-17.2); WHITE BLOOD COUNT 7.1 TH/MM3 (4.0-11.0)
[2016-10-08 21:56] LABS: APTT (PATIENT) 37.1 SEC (24.3-30.1); INTERNATIONAL NORMALIZED RATIO 1.8 RATIO; PROTHROMBIN TIME - PATIENT 20.5 SEC (9.8-11.6)
[2016-10-08 22:00] VITALS: BP 141/94; PULSE 106; RESP 20; O2SAT 98
[2016-10-08 22:09] LABS: ANION GAP 9 MEQ/L (5-15); BICARBONATE 29.2 MEQ/L (21.0-32.0); BLOOD UREA NITROGEN 16 MG/DL (7-18); CHLORIDE 95 MEQ/L (98-107); GLOMERULAR FILTRATION RATE 61 ML/MIN (>89); SODIUM (NA) 133 MEQ/L (136-145)
[2016-10-08 22:10] LABS: POTASSIUM 4.3 MEQ/L (3.5-5.1)
[2016-10-08 22:14] LABS: CREATINE KINASE 124 U/L (39-308)
--- NOTE | 2016-10-08 22:23 | RADRPT ---
EXAM DATE/TIME: 10/08/2016 21:29 [facility] COMPARISON: CHEST SINGLE AP, September 26, 2016, 18:04. INDICATIONS : Chest pain, difficulty breathing for 22 hours MEDICAL HISTORY : Congestive heart failure. SURGICAL HISTORY : None. ENCOUNTER: Initial ACUITY: 1 day PAIN SCORE: 8/10 LOCATION: Bilateral chest FINDINGS: Small right pleural effusion, improved from September 26. Minimal basilar airspace disease. Heart size en larged. No pneumothorax. CONCLUSION: 1. Small right pleural effusion. Minimal basilar airspace disease. Jesus Henry MD on October 08, 2016 at 22:21 Board Certified Radiologist. This report was verified electronically.
[2016-10-08 22:26] LABS: CKMB 1.6 NG/ML (0.5-3.6)
[2016-10-08] MEDS ORDERED: ACETAMINOPHEN/HYDROcodone 325 MG/5 MG TAB PO ONE (23:15)
[2016-10-08] MEDS ORDERED: IOHEXOL 350 MG/ML 10 ML VIAL (for RAD DIAG) IV ONE (23:22)
--- NOTE | 2016-10-08 23:34 | RADRPT ---
EXAM DATE/TIME: 10/08/2016 23:18 [facility] COMPARISON: CT PULMONARY ANGIOGRAM, September 13, 2016, 14:35. INDICATIONS : Right sided chest pain , evaluate for pulmonary embolism IV CONTRAST: 75 cc Omnipaque 350 (iohexol) IV RADIATION DOSE: 23.45 CTDIvol (mGy) MEDICAL HISTORY : Hypertension. Methicillin-resistant Staphylococcus aureus. SURGICAL HISTORY : Appendectomy. Cholecystectomy. ENCOUNTER: Initial ACUITY: 1 day PAIN SCALE: 10/10 LOCATION: chest TECHNIQUE: Volumetric scanning of the chest was performed using a pulmonary embolism protocol MIP images were re constructed. Using automated exposure control and adjustment of the mA and/or kV according to patien t size, radiation dose was kept as low as reasonably achievable to obtain optimal diagnostic quality images. FINDINGS: PULMONARY ARTERIES: No filling defects are seen in the pulmonary arteries through the segmental level. LUNGS: Emphysematous changes within the lung apices. There is peribronchial thickening throughout the centra l airways bilaterally. This is more pronounced on the right. This appearance is stable. PLEURAE: Tiny posterior layering pleural effusions bilaterally. MEDIASTINUM: The heart normal in size. No pericardial effusion. Coronary artery atherosclerotic ulcerations noted. Aorta is normal caliber. No adenopathy. MUSCULOSKELETAL: Old fractures involving the right ribs. A degenerative thoracic spine. MISCELLANEOUS: Small blind ascites adjacent to the anterior margin of the liver. CONCLUSION: 1. No pulmonary embolus on the current study. 2. Small bilateral pleural effusions. 3. Small blind ascites. 4. Emphysematous changes. 5. Peribronchial thickening more pronounced on the right suggesting bronchitis/bronchiolitis. Kalyan Alfred Jr., MD on October 08, 2016 at 23:28 Board Certified Radiologist. This report was verified electronically.
--- NOTE | 2016-10-08 23:45 | PD ---
HPI Chief Complaint: Chest Pain Time Seen by Provider: 22:25 Travel History International Travel<30 days: No Contact w/Intl Traveler<30days: No Traveled to known affect area: No History of Present Illness HPI Patient is a 71 year old male presents to the ER for evaluation of right sided chest pain, cough and mild SOB. Patient with multiple admissions recently for evaluation of PE's (he is on and taking anticoagulation) and chf. Patient states aching pain on the right side of his chest and worsened when he takes a deep breath. Patient is sleeping on my initial arrival to him and after arousal is in NAD and has the above complaints. Denies any abdominal pain, fever, decreased urine output, orthopnea. Patient with a history of ivd states clean for multiple months at this point. PFSH Past Medical History Hx Anticoagulant Therapy: No Arthritis: No Asthma: No Blood Disorders: No Anxiety: No Depression: Yes Heart Rhythm Problems: No Cancer: No Cardiac Catheterization: No Cardiovascular Problems: Yes High Cholesterol: Yes Chemotherapy: No Chest Pain: Yes (ENDOCARDITITS) Congestive Heart Failure: No COPD: No Cerebrovascular Accident: Yes (TIAS) Coronary Artery Disease: Yes Diabetes: Yes Patient Takes Glucophage: No Diminished Hearing: No Endocrine: Yes Gastrointestinal Disorders: Yes GERD: No Glaucoma: No Genitourinary: No Headaches: No Hepatitis: No Hiatal Hernia: No Hypertension: Yes Immune Disorder: No Kidney Stones: No Musculoskeletal: Yes Neurologic: Yes Psychiatric: No Reproductive: No Respiratory: Yes (SOB AND COLLAPSED LUNG) Migraines: No Myocardial Infarction: Yes (mother) Radiation Therapy: No Renal Failure: No Seizures: Yes (20 YEARS AGO) Sickle Cell Disease: No Sleep Apnea: No Thyroid Disease: No Ulcer: No Tetanus Vaccination: Unknown Influenza Vaccination: Yes PNEUMOCCOCAL Vaccine (Year): 2007 Past Surgical History AICD: No Appendectomy: Yes Arteriovenous Shunt: No Body Medical Devices: TIERRA IN NECK Cardiac Surgery: No Cholecystectomy: Yes Coronary Artery Bypass Graft: No Ear Surgery: No Endocrine Surgery: No Eye Surgery: No Genitourinary Surgery: No Gynecologic Surgery: No Insulin Pump: No Joint Replacement: No Neurologic Surgery: No Oral Surgery: No Pacemaker: No Thoracic Surgery: No Social History Alcohol Use: Yes (NOT OFTEN) Tobacco Use: No Substance Use: Yes (METH, MARIJUANA AND COCAINE) Allergies-Medications (Allergen,Severity, Reaction): Coded Allergies: Morphine (Verified Allergy, Severe, Itching, 10/08/16) *MDRO Multi-Drug Resistant Organism (Verified Adverse Reaction, Unknown, ) 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/16 Reported Meds & Prescriptions Reported Meds & Active Scripts Active Prednisone 20 Mg Tab 60 Mg PO DAILY 5 Days Azithromycin 250 Mg Tab 250 Mg PO DIRECTED Take 2 tabs (500 mg) on day 1 then 1 tab daily x 4 days. Oxygen tank (Oxygen) 1 Ea Tank 2 Liter JULIET[employer] CONTINUOUS Oxygen Concentrator Portable Gaseous 2 L/min via Nasal Cannula Continuous For 99 months Furosemide 40 Mg Tab 40 Mg PO DAILY Glyburide 2.5 Mg Tab 1.25 Mg PO DAILYAC Lisinopril 5 Mg Tab 5 Mg PO DAILY Coreg (Carvedilol) 3.125 Mg Tab 3.125 Mg PO Q12HR Xarelto (Rivaroxaban) 20 Mg Tab 20 Mg PO DAILY@15 Aspirin EC (Aspirin) 81 Mg Tabdr 81 Mg PO DAILY Doxycycline Hyclate 100 Mg Tab 100 Mg PO Q12H Review of Systems Except as stated in HPI: all other systems reviewed are Neg Physical Exam Narrative GENERAL: WD/WN sleeping in NAD. SKIN: Warm and dry. No rash, no osler nodes, no splinter hemorrhages. HEAD: Atraumatic. Normocephalic. EYES: Pupils equal and round. No scleral icterus. No injection or drainage. ENT: No nasal bleeding or discharge. Mucous membranes pink and moist. NECK: Trachea midline. No JVD. CARDIOVASCULAR: Regular rate and rhythm. RESPIRATORY: No accessory muscle use. Clear to auscultation. Breath sounds equal bilaterally. GASTROINTESTINAL: Abdomen soft, non-tender, nondistended. Hepatic and splenic margins not palpable. MUSCULOSKELETAL: Extremities without clubbing, cyanosis, or edema. No obvious deformities. NEUROLOGICAL: Awake and alert. No obvious cranial nerve deficits. Motor grossly within normal limits. Five out of 5 muscle strength in the arms and legs. Normal speech. PSYCHIATRIC: Appropriate mood and affect; insight and judgment normal. Data Data Last Documented VS Orders Electrocardiogram (10/08/16 21:21) Complete Blood Count With Diff (10/08/16 21:21) Basic Metabolic Panel (Bmp) (10/08/16 21:21) Ckmb (Isoenzyme) Profile (10/08/16 21:21) Troponin I (10/08/16 21:21) Chest, Single Ap (10/08/16 21:21) Iv Access Insert/Monitor (10/08/16 21:21) Ecg Monitoring (10/08/16 21:21) Oxygen Administration (10/08/16 21:21) Oximetry (10/08/16 21:21) Act Partial Throm Time (Ptt) (10/08/16 21:36) Prothrombin Time / Inr (Pt) (10/08/16 21:36) D-Dimer (10/08/16 22:09) CKMB (10/08/16 21:30) CKMB% (10/08/16 21:30) Ct Pulmonary Angiogram (10/08/16 ) Acetamin-Hydrocod 325-5 Mg ([place] 5-325 (10/08/16 23:15) Iohexol 350 Inj (Omnipaque 350 Inj) (10/08/16 23:22) Labs MDM Medical Decision Making Medical Screen Exam Complete: Yes Emergency Medical Condition: Yes Differential Diagnosis Chest pain, ACS unlikely, AMI unlikely, bronchitis, PE. Narrative Course Patient roomed in ED. Sleeping soundly throughout stay in ED. No sob. Patient pain atypical for acs. Seen by cardiology in jul 2016. Stress showed ( according to Dr. Alberto) changes consistent with non-ischemic cardiomyopathy. CT pe shows: Last 24 hours Impressions Chest X-Ray 10/08/161 Signed Impressions: Service Date/Time: Saturday, October 08, 2016 21:29 - CONCLUSION: 1. Small right pleural effusion. Minimal basilar airspace disease. Jesus Henry MD CT Angiography 10/08/16 0000 Signed Impressions: Service Date/Time: Saturday, October 08, 2016 23:18 - CONCLUSION: 1. No pulmonary embolus on the current study. 2. Small bilateral pleural effusions. 3. Small blind ascites. 4. Emphysematous changes. 5. Peribronchial thickening more pronounced on the right suggesting bronchitis/bronchiolitis. Kalyan Alfred Jr., MD Initial laboratory workup negative. Dsicussed with patient CT findings and need for follow up with PCP, cardiology and if needed the [facility]. Discussed return to ED criteria. He is stable for discharge. Diagnosis Primary Impression: Bronchitis Med/Other Pt SpecificInfo: Prescription(s) given Scripts Prednisone 20 Mg Tab60 Mg PO DAILY 5 Days Ref 0 Prov:Vargas Lopez MD 10/08/16 Azithromycin 250 Mg [id number] Mg PO DIRECTED #6 TAB Ref 0 Take 2 tabs (500 mg) on day 1 then 1 tab daily x 4 days. Prov:Vargas Lopez MD 10/08/16 Disposition: DISCHARGE HOME Condition: Stable Vargas Lopez MD Oct 08, 2016 23:45 Total Creatine Kinase 124 U/L Creatine Kinase MB 1.6 NG/ML Troponin I 0.03 NG/ML MDM Medical Decision Making Medical Screen Exam Complete: Yes Emergency Medical Condition: Yes Diagnosis Primary Impression: Bronchitis Med/Other Pt SpecificInfo: Prescription(s) given Scripts Prednisone 20 Mg Tab60 Mg PO DAILY 5 Days Ref 0 Prov:Vargas Lopez MD 10/08/16 Azithromycin 250 Mg [id number] Mg PO DIRECTED #6 TAB Ref 0 Take 2 tabs (500 mg) on day 1 then 1 tab daily x 4 days. Prov:Vargas Lopez MD 10/08/16 Disposition: DISCHARGE HOME Condition: Stable Vargas Lopez MD Oct 08, 2016 23:45
[2016-10-08 23:50] VITALS: BP 128/82; PULSE 101; PULSE 20; RESP 20; O2SAT 97
[2016-10-08] MEDS ORDERED: PRED20 PO (23:56)
[2016-10-08] MEDS ORDERED: AZIT250T3 PO (23:56)
--- NOTE | 2016-10-09 12:54 | EKG ---
Date Performed: 10/08/2016 Time Performed: 21:00:49 PTAGE: 71 years EKG: SINUS TACHYCARDIA LEFT ANTERIOR FASCICULAR BLOCK NONSPECIFIC T-WAVE ABNORMALITY ABNORMAL EC G PREVIOUS TRACING : 09/27/2016 09.49 Compared to prior tracing no significant change DOCTOR: Donta Gonzalez Interpretating Date/Time 10/09/2016 12:53:08
== END 2016-10-09 00:29 | disposition home or self-care (01) ==
LOC: NEDAMB 20:52
DX: J40 Bronchitis, not specified as acute or chronic (principal); J90 Pleural effusion, not elsewhere classified; R94.31 Abnormal electrocardiogram [ECG] [EKG]; E11.9 Type 2 diabetes mellitus without complications; I10 Essential (primary) hypertension; Z79.84 Long term (current) use of oral hypoglycemic drugs; Z86.59 Personal history of other mental and behavioral disorders; Z86.79 Personal history of other diseases of the circulatory system; Z87.19 Personal history of other diseases of the digestive system; Z87.39 Personal history of other diseases of the musculoskeletal system and connective tissue; Z86.69 Personal history of other diseases of the nervous system and sense organs; Z87.09 Personal history of other diseases of the respiratory system
CPT/HCPCS: 71010; 71275; 80048; 82550; 82552; 84484; 85025; 85379; 85610; 85730; 93005; 99285; Q9967

== ENCOUNTER 2016-10-30 07:46 | Inpatient (IN) | payer MEDICARE ==
[~2016-10-30] VITALS: Ht 182.9 cm; Wt 72.7 kg
[2016-10-30] VITALS (10 sets, daily range): BP systolic 108–159; BP diastolic 67–98; PULSE 97–106; RESP 17–21; TEMP 97.6–98.6; O2SAT 92–100
[~2016-10-30 07:46] MED LIST changes: +AZIT250T3 PO; +PRED20 PO
[2016-10-30] MEDS ORDERED: SODIUM CHLORIDE 0.9% FLUSH 10 ML FLUSH IVF PRN (08:00)
[2016-10-30 08:07] LABS: BLOOD GAS BASE EXCESS -0.1 mmol/L (-2-2); BLOOD GAS CARBOXYHEMOGLOBIN 1.2 % (0-4); BLOOD GAS HCO3 24 mmol/L (22-26); BLOOD GAS METHEMOGLOBIN 0.3 % (0-2); BLOOD GAS O2 HGB SATURATION 97 % (90-100); BLOOD GAS OXYGEN CONTENT 17.2 Vol % (12.0-20.0); BLOOD GAS PCO2 37 mmHg (38-42); BLOOD GAS PO2 107 mmHG (61-120); BLOOD GAS TOTAL HGB 12.5 G/DL (12.0-16.0); CRITICAL VALUE NO; DRAW SITE RT RADIAL; LITER FLOW 2 L/M; NUMBER OF ARTERIAL PUNCTURES 1; OXYGEN DEVICE NASAL CANNULA; STAT YES; TEMP CORR TO 98.6; ULNAR PULSE PRESENT
--- NOTE | 2016-10-30 08:07 | PD ---
HPI Chief Complaint: Chest Pain Time Seen by Provider: 07:49 Travel History International Travel<30 days: No Contact w/Intl Traveler<30days: No Traveled to known affect area: No History of Present Illness HPI The patient is a 71-year-old male who presents to the emergency department via EMS for shortness of breath. The patient states he's had multiple admissions the last several months secondary to congestive heart failure and pulmonary embolism. The patient was placed on Xarelto one month ago for pulmonary embolism was discharged home on oxygen 2 L via nasal cannula. The patient states he developed increasing shortness of breath yesterday which is worse with lying supine and exacerbated by moderate activity. He also complains of some substernal chest pain which is describes as occasionally sharp and occasionally dull/achy. The patient does have a history of congestive heart failure, had a nuclear medicine myocardial perfusion scan performed in July 2016 which revealed global hypokinesia with an EF of 14%. Patient had a hospitalization several months ago for congestive heart failure. 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 He does have a primary physician, recently attained, Dr. Joseph. The patient does not have a immunochemist. He has been taking his medications as directed, per his report. He denies any recent weight gain or swelling of the lower extremities. He denies any associated fever, chills, or sweats. He does complain of mild nausea without any vomiting. He denies any associated abdominal pain. PFSH Past Medical History Hx Anticoagulant Therapy: No Arthritis: No Asthma: No Blood Disorders: No Anxiety: No Depression: Yes Heart Rhythm Problems: No Cancer: No Cardiac Catheterization: No Cardiovascular Problems: Yes High Cholesterol: Yes Chemotherapy: No Chest Pain: Yes (ENDOCARDITITS) Congestive Heart Failure: No COPD: No Cerebrovascular Accident: Yes (TIAS) Coronary Artery Disease: Yes Diabetes: Yes Diminished Hearing: No Endocrine: Yes Gastrointestinal Disorders: Yes GERD: No Glaucoma: No Genitourinary: No Headaches: No Hepatitis: No Hiatal Hernia: No Hypertension: Yes Immune Disorder: No Kidney Stones: No Musculoskeletal: Yes Neurologic: Yes Psychiatric: No Reproductive: No Respiratory: Yes (SOB AND COLLAPSED LUNG) Migraines: No Myocardial Infarction: Yes (mother) Radiation Therapy: No Renal Failure: No Seizures: Yes (20 YEARS AGO) Sickle Cell Disease: No Sleep Apnea: No Thyroid Disease: No Ulcer: No PNEUMOCCOCAL Vaccine (Year): 2007 ?: Not Past Surgical History AICD: No Appendectomy: Yes Arteriovenous Shunt: No Body Medical Devices: TIERRA IN NECK Cardiac Surgery: No Cholecystectomy: Yes Coronary Artery Bypass Graft: No Ear Surgery: No Endocrine Surgery: No Eye Surgery: No Genitourinary Surgery: No Gynecologic Surgery: No Insulin Pump: No Joint Replacement: No Neurologic Surgery: No Oral Surgery: No Pacemaker: No Thoracic Surgery: No Social History Alcohol Use: Yes (NOT OFTEN) Tobacco Use: No Substance Use: Yes (METH, MARIJUANA AND COCAINE) Allergies-Medications (Allergen,Severity, Reaction): Coded Allergies: Morphine (Verified Allergy, Severe, Itching, 10/30/16) *MDRO Multi-Drug Resistant Organism (Verified Adverse Reaction, Unknown, ) 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/16 Reported Meds & Prescriptions Reported Meds & Active Scripts Active Furosemide 40 Mg Tab 40 Mg PO DAILY Glyburide 2.5 Mg Tab 1.25 Mg PO DAILYAC Lisinopril 5 Mg Tab 5 Mg PO DAILY Coreg (Carvedilol) 3.125 Mg Tab 3.125 Mg PO Q12HR Xarelto (Rivaroxaban) 20 Mg Tab 20 Mg PO DAILY@15 Aspirin EC (Aspirin) 81 Mg Tabdr 81 Mg PO DAILY Doxycycline Hyclate 100 Mg Tab 100 Mg PO Q12H Review of Systems Except as stated in HPI: all other systems reviewed are Neg General / Constitutional: No: Fever Cardiovascular: Positive: Chest Pain or Discomfort, Dyspnea on exertion Respiratory: Positive: Shortness of Breath, Orthopnea Gastrointestinal: Positive: Nausea, No: Vomiting, Abdominal Pain Genitourinary: No: Decreased Urinary Output Musculoskeletal: No: Edema Neurologic: No: Weakness, Dizziness Physical Exam Narrative GENERAL: Awake, alert, 71-year-old male who appears his stated age and is in no obvious respiratory distress. SKIN: Focused skin assessment warm/dry. HEAD: Atraumatic. Normocephalic. EYES: Pupils equal and round. No scleral icterus. No injection or drainage. ENT: No nasal bleeding or discharge. Mucous membranes pink and moist. NECK: Trachea midline. No JVD. CARDIOVASCULAR: Regular, tachycardic with a heart rate of 102. RESPIRATORY: No accessory muscle use. Minimally diminished breath sounds in the right base. GASTROINTESTINAL: Abdomen soft, non-tender, nondistended. No rebound tenderness. MUSCULOSKELETAL: No obvious deformities. No clubbing. No cyanosis. No edema. Negative Homans sign. NEUROLOGICAL: Awake and alert. No obvious cranial nerve deficits. Motor grossly within normal limits. Normal speech. PSYCHIATRIC: Appropriate mood and affect; insight and judgment normal. Data Data Last Documented VS Vital Signs Date Time Temp Pulse Resp B/P Pulse Ox O2 Delivery O2 Flow Rate FiO2 10/30/16 11:06 100 18 139/98 100 Nasal Cannula 2 10/30/16 07:52 97.6 Orders Complete Blood Count With Diff (10/30/16 07:56) Comprehensive Metabolic Panel (10/30/16 07:56) B-Type Natriuretic Peptide (10/30/16 07:56) Act Partial Throm Time (Ptt) (10/30/16 07:56) Prothrombin Time / Inr (Pt) (10/30/16 07:56) Magnesium (Mg) (10/30/16 07:56) Ckmb (Isoenzyme) Profile (10/30/16 07:56) Troponin I (10/30/16 07:56) Arterial Blood Gas (Abg) (10/30/16 07:56) Iv Access Insert/Monitor (10/30/16 07:56) Electrocardiogram (10/30/16 07:56) Ecg Monitoring (10/30/16 07:56) Oximetry (10/30/16 07:56) Oxygen Administration (10/30/16 07:56) Chest, Single Ap (10/30/16 07:56) Sodium Chloride 0.9% Flush (Ns Flush) (10/30/16 08:00) Furosemide Inj (Lasix Inj) (10/30/16 10:00) Aspirin Chew (Aspirin Chew) (10/31/16 09:00) Aspirin Chew (Aspirin Chew) (10/30/16 11:00) Admit Order (Ed Use Only) (10/30/16 11:07) Place In Observation (10/30/16 ) Vital Signs (Adult) Q4H (10/30/16 11:07) Activity Bed Rest With Brp (10/30/16 11:07) Case Investigator / Telemetry .CONTINUOUS (10/30/16 11:07) Intake + Output DENYS.QSHIFT (10/30/16 11:07) Diet Heart Healthy (10/30/16 Lunch) Sodium Chloride 0.9% Flush (Ns Flush) (10/30/16 11:15) Sodium Chloride 0.9% Flush (Ns Flush) (10/30/16 21:00) Acetaminophen (Tylenol) (10/30/16 11:15) Ondansetron Inj (Zofran Inj) (10/30/16 11:15) Bisacodyl Supp (Dulcolax Supp) (10/30/16 11:15) Docusate Sodium (Colace) (10/30/16 11:15) Basic Metabolic Panel (Bmp) (10/31/16 06:00) Comprehensive Metabolic Panel (10/31/16 06:00) Resp Oxygen José Luis C Titrat 1-4 L (10/30/16 ) Pt Request For Service (10/30/16 11:07) Case Management Consult (10/30/16 11:07) Scd Bilateral/Knee High DENYS.BID (10/30/16 11:07) Labs Laboratory Tests Test 10/30/16 10/30/16 08:01 08:06 Blood Gas Puncture Site RT RADIAL Blood Gas Patient Temperature 98.6 Blood Gas HCO3 24 mmol/L Blood Gas Base Excess -0.1 mmol/L Blood Gas Oxygen Saturation 97 % Arterial Blood pH 7.43 Arterial Blood Partial 37 mmHg Pressure CO2 Arterial Blood Partial 107 mmHG Pressure O2 Arterial Blood Oxygen Content 17.2 Vol % Arterial Blood 1.2 % Carboxyhemoglobin Arterial Blood Methemoglobin 0.3 % Blood Gas Hemoglobin 12.5 G/DL Oxygen Delivery Device NASAL CANNULA Blood Gas Liter Flow 2 L/M White Blood Count 7.6 TH/MM3 Red Blood Count 4.55 MIL/MM3 Hemoglobin 12.9 GM/DL Hematocrit 40.8 % Mean Corpuscular Volume 89.5 FL Mean Corpuscular Hemoglobin 28.4 PG Mean Corpuscular Hemoglobin 31.7 % Concent Red Cell Distribution Width 19.8 % Platelet Count 194 TH/MM3 Mean Platelet Volume 9.1 FL Neutrophils (%) (Auto) 62.3 % Lymphocytes (%) (Auto) 29.2 % Monocytes (%) (Auto) 5.9 % Eosinophils (%) (Auto) 2.0 % Basophils (%) (Auto) 0.6 % Neutrophils # (Auto) 4.7 TH/MM3 Lymphocytes # (Auto) 2.2 TH/MM3 Monocytes # (Auto) 0.4 TH/MM3 Eosinophils # (Auto) 0.1 TH/MM3 Basophils # (Auto) 0.0 TH/MM3 CBC Comment DIFF FINAL Differential Comment Prothrombin Time 13.7 SEC Prothromb Time International 1.2 RATIO Ratio Activated Partial 29.0 SEC Thromboplast Time Sodium Level 137 MEQ/L Potassium Level 4.0 MEQ/L Chloride Level 103 MEQ/L Carbon Dioxide Level 27.6 MEQ/L Anion Gap 6 MEQ/L Blood Urea Nitrogen 22 MG/DL Creatinine 1.11 MG/DL Estimat Glomerular Filtration 66 ML/MIN Rate Random Glucose 177 MG/DL Calcium Level 9.1 MG/DL Magnesium Level 1.8 MG/DL Total Bilirubin 0.5 MG/DL Aspartate Amino Transf 30 U/L (AST/SGOT) Alanine Aminotransferase 20 U/L (ALT/SGPT) Alkaline Phosphatase 176 U/L Total Creatine Kinase 100 U/L Troponin I 0.02 NG/ML B-Type Natriuretic Peptide 1055 PG/ML Total Protein 7.1 GM/DL Albumin 3.4 GM/DL [facility] Medical Decision Making Medical Screen Exam Complete: Yes Emergency Medical Condition: Yes Medical Record Reviewed: Yes Interpretation(s) EKG reveals normal sinus rhythm with a rate in 99. Inverted T-wave noted in lead 1 and aVL. Last Impressions Chest X-Ray 10/30/16 0756 Signed Impressions: Service Date/Time: October 08:30 - CONCLUSION: 1. Interstitial opacities in lower lung zones bilaterally are new from the prior examination and may represent interstitial pulmonary edema. 2. Chronic blunting the right costophrenic angle is secondary to pleural thickening based on the prior examinations. Kwesi Huber MD Laboratory Tests Test 10/30/16 10/30/16 08:01 08:06 Blood Gas Puncture Site RT RADIAL Blood Gas Patient Temperature 98.6 Blood Gas HCO3 24 mmol/L Blood Gas Base Excess -0.1 mmol/L Blood Gas Oxygen Saturation 97 % Arterial Blood pH 7.43 Arterial Blood Partial 37 mmHg Pressure CO2 Arterial Blood Partial 107 mmHG Pressure O2 Arterial Blood Oxygen Content 17.2 Vol % Arterial Blood 1.2 % Carboxyhemoglobin Arterial Blood Methemoglobin 0.3 % Blood Gas Hemoglobin 12.5 G/DL Oxygen Delivery Device NASAL CANNULA Blood Gas Liter Flow 2 L/M White Blood Count 7.6 TH/MM3 Red Blood Count 4.55 MIL/MM3 Hemoglobin 12.9 GM/DL Hematocrit 40.8 % Mean Corpuscular Volume 89.5 FL Mean Corpuscular Hemoglobin 28.4 PG Mean Corpuscular Hemoglobin 31.7 % Concent Red Cell Distribution Width 19.8 % Platelet Count 194 TH/MM3 Mean Platelet Volume 9.1 FL Neutrophils (%) (Auto) 62.3 % Lymphocytes (%) (Auto) 29.2 % Monocytes (%) (Auto) 5.9 % Eosinophils (%) (Auto) 2.0 % Basophils (%) (Auto) 0.6 % Neutrophils # (Auto) 4.7 TH/MM3 Lymphocytes # (Auto) 2.2 TH/MM3 Monocytes # (Auto) 0.4 TH/MM3 Eosinophils # (Auto) 0.1 TH/MM3 Basophils # (Auto) 0.0 TH/MM3 CBC Comment DIFF FINAL Differential Comment Prothrombin Time 13.7 SEC Prothromb Time International 1.2 RATIO Ratio Activated Partial 29.0 SEC Thromboplast Time Sodium Level 137 MEQ/L Potassium Level 4.0 MEQ/L Chloride Level 103 MEQ/L Carbon Dioxide Level 27.6 MEQ/L Anion Gap 6 MEQ/L Blood Urea Nitrogen 22 MG/DL Creatinine 1.11 MG/DL Estimat Glomerular Filtration 66 ML/MIN Rate Random Glucose 177 MG/DL Calcium Level 9.1 MG/DL Magnesium Level 1.8 MG/DL Total Bilirubin 0.5 MG/DL Aspartate Amino Transf 30 U/L (AST/SGOT) Alanine Aminotransferase 20 U/L (ALT/SGPT) Alkaline Phosphatase 176 U/L Total Creatine Kinase 100 U/L Troponin I 0.02 NG/ML B-Type Natriuretic Peptide 1055 PG/ML Total Protein 7.1 GM/DL Albumin 3.4 GM/DL Differential Diagnosis Differential diagnosis includes bronchitis, pneumonia, pleural effusion, pulmonary embolism, cardiomyopathy, congestive heart failure, acute coronary syndrome. Narrative Course IV was established, labs are drawn and sent, and the patient was placed on cardiac telemetry monitoring and continuous pulse oximetry monitoring. EKG was ordered and interpreted. Chest x-ray was obtained. I reviewed the patient's EMR, he had a negative treadmill stress test July 29, 2015 and a nuclear medicine myocardial perfusion scan performed July 25, 2016 which revealed an EF of 40% and global hypokinesia, but no reversible abnormalities noted. The patient had a positive CT pulmonary angiogram earlier this year for small pulmonary embolism in the right lower lobe, he had a repeat CT pulmonary angiogram performed October 08 which revealed no pulmonary embolism. The patient has been compliant on Xarelto and is on oxygen at home. The patient's CT pulmonary angiogram which revealed no PE did reveal peribronchial thickening consistent with bronchitis. The patient's chest x-ray today shows interstitial edema, BNP is elevated at 1055. The patient was administered aspirin and Lasix. The patient is already oxygen dependent with recent pulmonary embolism, history of cardiomyopathy, with acute CHF exacerbation. Therefore, patient will be admitted to the medical service. Physician Communication Physician Communication The on-call medical service was paged for admission. I discussed the patient with Dr. Samuel who agrees with 23 hour observation. Diagnosis Primary Impression: Acute exacerbation of CHF (congestive heart failure) Qualified Code: I50.9 - Acute on chronic congestive heart failure, unspecified congestive heart failure type Admitting Information Admitting Physician Requests: Observation Condition: Stable Mark Waldrop MD Oct 30, 2016 08:06
[2016-10-30 08:32] LABS: AUTOMATED NEUTROPHIL # 4.7 TH/MM3 (1.8-7.7); BASOPHIL % 0.6 % (0.0-2.0); EOSINOPHIL # 0.1 TH/MM3 (0-0.4); HEMATOCRIT 40.8 % (39.0-51.0); HEMO FLAGS DIFF FINAL; LYMPH % 29.2 % (9.0-44.0); LYMPHOCYTE # 2.2 TH/MM3 (1.0-4.8); MEAN CELL VOLUME 89.5 FL (80.0-100.0); MEAN CORPUSCULAR HEMOGLOBIN 28.4 PG (27.0-34.0); MEAN CORPUSCULAR HGB CONC 31.7 % (32.0-36.0); MONO % 5.9 % (0.0-8.0); NEUT % 62.3 % (16.0-70.0); PLATELET COUNT 194 TH/MM3 (150-450); RED BLOOD COUNT 4.55 MIL/MM3 (4.50-5.90); RED CELL DISTRIBUTION WIDTH 19.8 % (11.6-17.2); WHITE BLOOD COUNT 7.6 TH/MM3 (4.0-11.0)
[2016-10-30 08:39] LABS: INTERNATIONAL NORMALIZED RATIO 1.2 RATIO; PROTHROMBIN TIME - PATIENT 13.7 SEC (9.8-11.6)
[2016-10-30 08:52] LABS: ANION GAP 6 MEQ/L (5-15); AST (GOT) 30 U/L (15-37); BICARBONATE 27.6 MEQ/L (21.0-32.0); BLOOD UREA NITROGEN 22 MG/DL (7-18); CHLORIDE 103 MEQ/L (98-107); GLOMERULAR FILTRATION RATE 66 ML/MIN (>89); MAGNESIUM 1.8 MG/DL (1.5-2.5); SODIUM (NA) 137 MEQ/L (136-145)
[2016-10-30 08:57] LABS: ALKALINE PHOSPHATASE 176 U/L (45-117); ALT (GPT) 20 U/L (12-78); TOTAL BILIRUBIN ADULT 0.5 MG/DL (0.2-1.0)
[2016-10-30 09:12] LABS: CREATINE KINASE 100 U/L (39-308)
--- NOTE | 2016-10-30 09:40 | RADRPT ---
EXAM DATE/TIME: 10/30/2016 08:30 [place] COMPARISON: CT PULMONARY ANGIOGRAM, October 08, 2016, 23:18. CHEST SINGLE AP, October 08, 2016, 21:29. INDICATIONS : Chest pain and shortness of breath. MEDICAL HISTORY : Congestive heart failure. SURGICAL HISTORY : None. ENCOUNTER: Initial ACUITY: 2 days PAIN SCORE: 5/10 LOCATION: Left upper chest FINDINGS: Portable AP view of the chest demonstrates a normal-sized cardiac silhouette. There are hazy intersti tial opacities in lower lung zones bilaterally with stable blunting of the right costophrenic angle. No pneumothorax is visualized. Bones demonstrate no acute finding. CONCLUSION: 1. Interstitial opacities in lower lung zones bilaterally are new from the prior examination and may represent interstitial pulmonary edema. 2. Chronic blunting the right costophrenic angle is secondary to pleural thickening based on the prio r examinations. Kwesi Huber MD on October 30, 2016 at 9:36 Board Certified Radiologist. This report was verified electronically.
[2016-10-30] MEDS ORDERED: FUROSEMIDE 40 MG/4 ML VIAL IV PUSH ONE (10:00)
[2016-10-30] MEDS ORDERED: ASPIRIN 81 MG CHEW TAB CHEW ONE (11:00)
[2016-10-30] MEDS ORDERED: ACETAMINOPHEN 325 MG TAB PO PRN (11:15)
[2016-10-30] MEDS ORDERED: ONDANSETRON HCL 4 MG/2 ML VIAL IVP PRN (11:15)
[2016-10-30] MEDS: DOCUSATE SODIUM 100 MG CAP PO SCH ×2 (11:15→21:00)
[2016-10-30] MEDS ORDERED: BISACODYL 10 MG SUPP RECTAL PRN (11:15)
[2016-10-30] MEDS ORDERED: SODIUM CHLORIDE 0.9% FLUSH 10 ML FLUSH IV FLUSH PRN (11:15)
[2016-10-30] MEDS ORDERED: GLUCAGON 1 MG/ML VIAL OTHER PRN (13:15)
[2016-10-30] MEDS ORDERED: DEXTROSE 50% IN WATER 50 ML VIAL(D50) IV PUSH PRN (13:15)
--- NOTE | 2016-10-30 14:12 | EKG ---
Date Performed: 10/30/2016 Time Performed: 07:52:00 PTAGE: 71 years EKG: Sinus rhythm MARKED LEFT AXIS DEVIATION NONSPECIFIC T-WAVE ABNORMALITY ABNORMAL ECG Compared to prior tracing no significant change PREVIOUS TRACING : 10/08/2016 21.00 DOCTOR: Amos Shaffer Interpretating Date/Time 10/30/2016 14:08:43
--- NOTE | 2016-10-30 14:30 | HHI.HP ---
[facility] Kwesi Joseph MD Admission Diagnosis CHF exacerbation, dyspnea Diagnoses: Chief Complaint: shortness of breath Travel History International Travel<30 Days: No Contact w/Intl Traveler <30 Da: No Traveled to Known Affected Are: No History of Present Illness 71 y/o male with a history of CHF (Ef 14%), HTN, HLD, depression, and DM presented to the ED with complaints of sob. He states he began to have shortness of breath yesterday after exertion, and continued to have it overnight and he did not sleep well. He was unable to lay flat with out having a hard time breathing. Patient states he feels better after the Lasix, he does take it daily but feels he needs more. He does have a cough, without much sputum. Denies any chest pain, nausea or vomiting. Patient states he is on Xarelto because of a PE one month ago, but states he does not want to be on it because it is expensive, and wishes to be changed to another medication. Review of Systems Constitutional: DENIES: Fever, Chills Respiratory: COMPLAINS OF: Cough, Shortness of breath, DENIES: Sputum production Cardiovascular: DENIES: Chest pain, Lower Extremity Edema Gastrointestinal: COMPLAINS OF: Constipation, DENIES: Diarrhea, Nausea, Vomiting Genitourinary: DENIES: Hematuria, Dysuria Musculoskeletal: DENIES: Back pain, Neck pain Integumentary: DENIES: Rash Immunologic/allergic: DENIES: Urticaria Neurologic: DENIES: Headache Past Family Social History Past Medical History CHF (EF 14%) HTN DM Depression HLD Anxiety IVDA 6 months ago TIA PE 09/2016 Endocarditis Past Surgical History Appendectomy Cholecystectomy Cervical spine surgery Reported Medications Reported Meds & Active Scripts Active Furosemide 40 Mg Tab 40 Mg PO DAILY Glyburide 2.5 Mg Tab 1.25 Mg PO DAILYAC Lisinopril 5 Mg Tab 5 Mg PO DAILY Coreg (Carvedilol) 3.125 Mg Tab 3.125 Mg PO Q12HR Xarelto (Rivaroxaban) 20 Mg Tab 20 Mg PO DAILY@15 Aspirin EC (Aspirin) 81 Mg Tabdr 81 Mg PO DAILY Doxycycline Hyclate 100 Mg Tab 100 Mg PO Q12H Allergies: Coded Allergies: Morphine (Verified Allergy, Severe, Itching, 10/30/16) *MDRO Multi-Drug Resistant Organism (Verified Adverse Reaction, Unknown, ) 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/16 Active Ordered Medications Current Medications Medications (Trade) Dose Ordered Sig/Keiko Route Start Time Stop Time Status Last Admin (NS Flush) 2 ml UNSCH PRN IV FLUSH 10/30/16 11:15 (NS Flush) 2 ml BID IV FLUSH 10/30/16 21:00 (Tylenol) 650 mg Q4H PRN PO 10/30/16 11:15 (Zofran Inj) 4 mg Q6H PRN IVP 10/30/16 11:15 (Dulcolax Supp) 10 mg DAILY PRN RECTAL 10/30/16 11:15 (Colace) 100 mg Q12HR PO 10/30/16 11:15 (Lasix Inj) 40 mg BID@,18 IV PUSH 10/30/16 18:00 (D50w (Vial) Inj) 25 ml UNSCH PRN IV PUSH 10/30/16 13:15 (Glucagon Inj) 1 mg UNSCH PRN OTHER 10/30/16 13:15 Family History Sister: Type 1 DM Mom: CHF Dad: GA, liver cancer Social History Tobacco use: Denies, quit 20 years ago Alcohol use: Denies, quit 20 years ago Illicit drug use: Quit IVDA 6 months ago, marijuana 5x a month Physical Exam Vital Signs Vital Signs Date Time Temp Pulse Resp B/P Pulse Ox O2 Delivery O2 Flow Rate FiO2 10/30/16 14:08 100 17 150/82 100 Nasal Cannula 2 10/30/16 12:14 98 18 128/87 100 Nasal Cannula 2 10/30/16 11:06 100 18 139/98 100 Nasal Cannula 2 10/30/16 10:08 97 17 122/85 100 Nasal Cannula 2 10/30/16 08:51 98 17 122/72 99 Nasal Cannula 2 10/30/16 07:59 98 17 100 Nasal Cannula 2 10/30/16 07:58 92 Room Air 10/30/16 07:58 100 Nasal Cannula 2 10/30/16 07:52 97.6 102 17 159/67 100 Physical Exam GENERAL: This is a well-nourished, well-developed patient, in no apparent distress. SKIN: No rashes, ecchymoses or lesions. Cool and dry. HEAD: Atraumatic. Normocephalic. No temporal or scalp tenderness. EYES: Pupils equal round and reactive. Extraocular motions intact. No scleral icterus. No injection or drainage. ENT: Nose without bleeding, purulent drainage or septal hematoma. Airway patent. NECK: Trachea midline. No JVD or lymphadenopathy. CARDIOVASCULAR: Regular rate and rhythm without murmurs, gallops, or rubs. RESPIRATORY: Crackles and diminished breath sounds throughout, GASTROINTESTINAL: Abdomen soft, tender, nondistended. No hepato-splenomegaly, or palpable masses. No guarding. MUSCULOSKELETAL: Extremities without clubbing, cyanosis, or edema. No joint tenderness, effusion, or edema noted. No calf tenderness. NEUROLOGICAL: Awake and alert. Motor and sensory grossly within normal limits. Five out of 5 muscle strength in all muscle groups. Normal speech. Laboratory Laboratory Tests Test 10/30/16 10/30/16 08:01 08:06 Blood Gas Puncture Site RT RADIAL Blood Gas Patient Temperature 98.6 Blood Gas HCO3 24 Blood Gas Base Excess -0.1 Blood Gas Oxygen Saturation 97 Arterial Blood pH 7.43 Arterial Blood Partial 37 Pressure CO2 Arterial Blood Partial 107 Pressure O2 Arterial Blood Oxygen Content 17.2 Arterial Blood 1.2 Carboxyhemoglobin Arterial Blood Methemoglobin 0.3 Blood Gas Hemoglobin 12.5 Oxygen Delivery Device NASAL CANNULA Blood Gas Liter Flow 2 White Blood Count 7.6 Red Blood Count 4.55 Hemoglobin 12.9 Hematocrit 40.8 Mean Corpuscular Volume 89.5 Mean Corpuscular Hemoglobin 28.4 Mean Corpuscular Hemoglobin 31.7 Concent Red Cell Distribution Width 19.8 Platelet Count 194 Mean Platelet Volume 9.1 Neutrophils (%) (Auto) 62.3 Lymphocytes (%) (Auto) 29.2 Monocytes (%) (Auto) 5.9 Eosinophils (%) (Auto) 2.0 Basophils (%) (Auto) 0.6 Neutrophils # (Auto) 4.7 Lymphocytes # (Auto) 2.2 Monocytes # (Auto) 0.4 Eosinophils # (Auto) 0.1 Basophils # (Auto) 0.0 CBC Comment DIFF FINAL Differential Comment Prothrombin Time 13.7 Prothromb Time International 1.2 Ratio Activated Partial 29.0 Thromboplast Time Sodium Level 137 Potassium Level 4.0 Chloride Level 103 Carbon Dioxide Level 27.6 Anion Gap 6 Blood Urea Nitrogen 22 Creatinine 1.11 Estimat Glomerular Filtration 66 Rate Random Glucose 177 Calcium Level 9.1 Magnesium Level 1.8 Total Bilirubin 0.5 Aspartate Amino Transf 30 (AST/SGOT) Alanine Aminotransferase 20 (ALT/SGPT) Alkaline Phosphatase 176 Total Creatine Kinase 100 Troponin I 0.02 B-Type Natriuretic Peptide 1055 Total Protein 7.1 Albumin 3.4 Result Diagram: 10/30/16 0806 10/30/16 0806 Imaging Last Impressions Chest X-Ray 10/30/16 0756 Signed Impressions: Service Date/Time: October 08:30 - CONCLUSION: 1. Interstitial opacities in lower lung zones bilaterally are new from the prior examination and may represent interstitial pulmonary edema. 2. Chronic blunting the right costophrenic angle is secondary to pleural thickening based on the prior examinations. Kwesi Huber MD Assessment and Plan Problem List: (1) Acute exacerbation of CHF (congestive heart failure) ICD Code: I50.9 Status: Acute (2) Pulmonary embolism ICD Code: I26.99 Status: Chronic (3) DM (diabetes mellitus) ICD Code: E11.9 Status: Chronic (4) HTN (hypertension) ICD Code: I10 Status: Chronic Assessment and Plan Acute CHF exacerbation, [id number], worsening pulmonary edema Chest xray shows Interstitial opacities in lower lung zones bilaterally are new from the prior examination and may represent interstitial pulmonary edema. -Increase Lasix to 40mg BID -Fluid restrictions -BNP in AM PE history, 30 days ago, patient does not want to be on Xarelto due to increased cost -Patient agrees with Coumadin, start 7.5mg daily, pharmacy consult. -Bridge with Lovenox daily HTN, chronic -Restart home medications lisinopril and Coreg -Monitor vitals DM, chronic -Restart home medication glyburide -Accu checks with SSI DVT prophylaxis: Coumadin Written by PACHECO Ray acting as scribe for Dr. Alvarado] on 10/30/16 at 14 :22. This note was transcribed by israel BERGMAN. I, Dr. Rachel Samuel personally performed the history, physical exam, and medical decision making; and confirmed the accuracy of the information in the transcribed note. Authenticated by Dr. Rachel Samuel on 10/30/16 at 14:22. Discussed Condition With Patient, and ED physician Problem Qualifiers (1) Acute exacerbation of CHF (congestive heart failure): Qualified Code: I50.9 - Acute on chronic congestive heart failure, unspecified congestive heart failure type Olga Schuster Oct 30, 2016 14:30 Rachel Samuel MD Oct 30, 2016 15:10
[2016-10-30] MEDS: DOXYCYCLINE HYCLATE 100 MG TAB PO SCH (15:21)
[2016-10-30] MEDS: ENOXAPARIN SODIUM 80 MG/0.8 ML SYRINGE SQ SCH (15:21)
[2016-10-30] MEDS: INSULIN ASPART SUPPLEMENTAL SCALE SQ SCH ×2 (17:18→21:00)
[2016-10-30] MEDS: WARFARIN SOD 7.5 MG TAB PO SCH (17:23)
[2016-10-30] MEDS: FUROSEMIDE 40 MG/4 ML VIAL IV PUSH SCH (17:24)
[2016-10-30] MEDS: LORazepam 0.5 MG TAB PO PRN (19:40)
[2016-10-30] MEDS: SODIUM CHLORIDE 0.9% FLUSH 10 ML FLUSH IV FLUSH SCH (21:45)
[2016-10-30] MEDS: CARVEDILOL 3.125 MG TAB PO SCH (21:45)
[2016-10-31] VITALS (7 sets, daily range): BP systolic 100–130; BP diastolic 59–83; PULSE 92–101; RESP 18–20; TEMP 97.7–98.3; O2SAT 96–99
[2016-10-31] MEDS: DOXYCYCLINE HYCLATE 100 MG TAB PO SCH ×2 (03:34→15:26)
[2016-10-31] MEDS: LORazepam 0.5 MG TAB PO PRN ×2 (04:25→18:29)
[2016-10-31] MEDS: INSULIN ASPART SUPPLEMENTAL SCALE SQ SCH ×4 (06:35→21:00)
[2016-10-31 07:07] LABS: INTERNATIONAL NORMALIZED RATIO 1.2 RATIO; PROTHROMBIN TIME - PATIENT 13.5 SEC (9.8-11.6)
[2016-10-31 07:31] LABS: ALKALINE PHOSPHATASE 115 U/L (45-117); ALT (GPT) 21 U/L (12-78); ANION GAP 9 MEQ/L (5-15); AST (GOT) 26 U/L (15-37); BICARBONATE 28.4 MEQ/L (21.0-32.0); BLOOD UREA NITROGEN 23 MG/DL (7-18); CHLORIDE 99 MEQ/L (98-107); GLOMERULAR FILTRATION RATE 71 ML/MIN (>89); POTASSIUM 3.6 MEQ/L (3.5-5.1); SODIUM (NA) 136 MEQ/L (136-145)
--- NOTE | 2016-10-31 08:47 | HHI.PR ---
Subjective Remarks Follow up for CHF exacerbation. Patient states he is still short of breath when he walks and at sleep. Explained fluid restriction to patient. Denies any chest pain, fever or chills. Objective Vitals Vital Signs Date Time Temp Pulse Resp B/P Pulse Ox O2 Delivery O2 Flow Rate FiO2 10/31/16 04:16 98.0 95 19 120/75 96 10/31/16 02:43 94 10/31/16 00:09 98.2 98 20 119/74 99 10/30/16 20:28 104 19 136/82 99 10/30/16 18:23 106 10/30/16 16:24 98.0 103 21 108/74 100 10/30/16 14:08 100 17 150/82 100 Nasal Cannula 2 10/30/16 12:14 98 18 128/87 100 Nasal Cannula 2 10/30/16 11:06 100 18 139/98 100 Nasal Cannula 2 10/30/16 10:08 97 17 122/85 100 Nasal Cannula 2 10/30/16 08:51 98 17 122/72 99 Nasal Cannula 2 I/O 10/30/16 10/30/16 10/30/16 10/31/16 10/31/16 10/31/16 07:00 15:00 23:00 07:00 15:00 23:00 Output Total 2400 ml 675 ml Balance -2400 ml -675 ml Output Urine Total 2400 ml 675 ml # Voids 1 # Bowel Movements 1 Result Diagram: 10/30/16 0806 10/31/16 0555 Imaging Last Impressions Chest X-Ray 10/30/16 0756 Signed Impressions: Service Date/Time: October 08:30 - CONCLUSION: 1. Interstitial opacities in lower lung zones bilaterally are new from the prior examination and may represent interstitial pulmonary edema. 2. Chronic blunting the right costophrenic angle is secondary to pleural thickening based on the prior examinations. Kwesi Huber MD Objective Remarks GENERAL: This is a well-nourished, well-developed patient, in no apparent distress. SKIN: No rashes, ecchymoses or lesions. Cool and dry. HEAD: Atraumatic. Normocephalic. No temporal or scalp tenderness. EYES: Pupils equal round and reactive. Extraocular motions intact. ENT: Nose without bleeding, purulent drainage or septal hematoma. Airway patent. NECK: Trachea midline. No JVD or lymphadenopathy. CARDIOVASCULAR: Regular rate and rhythm without murmurs, gallops, or rubs. RESPIRATORY: Crackles heard from mid upper lobes to lower lobes and diminished breath sounds throughout GASTROINTESTINAL: Abdomen soft, tender, nondistended. No hepato-splenomegaly, or palpable masses. No guarding. MUSCULOSKELETAL: Extremities without clubbing, cyanosis, or edema. No joint tenderness, effusion, or edema noted. No calf tenderness. NEUROLOGICAL: Awake and alert. Motor and sensory grossly within normal limits. Normal speech. Medications and IVs Current Medications Medications (Trade) Dose Ordered Sig/Keiko Route Start Time Stop Time Status Last Admin (NS Flush) 2 ml UNSCH PRN IV FLUSH 10/30/16 11:15 10/30/16 17:23 (NS Flush) 2 ml BID IV FLUSH 10/30/16 21:00 10/30/16 21:45 (Tylenol) 650 mg Q4H PRN PO 10/30/16 11:15 (Zofran Inj) 4 mg Q6H PRN IVP 10/30/16 11:15 (Dulcolax Supp) 10 mg DAILY PRN RECTAL 10/30/16 11:15 (Colace) 100 mg Q12HR PO 10/30/16 11:15 (Lasix Inj) 40 mg BID@09,18 IV PUSH 10/30/16 18:00 10/30/16 17:24 (D50w (Vial) Inj) 25 ml UNSCH PRN IV PUSH 10/30/16 13:15 Glucagon 1 mg 1 mg UNSCH PRN OTHER 10/30/16 13:15 (Coumadin Consult Pharmacy) 0 ml @ 0 mls/hr UNSCH OTHER 10/30/16 14:45 (Coumadin) 7.5 mg DAILY@16 PO 10/30/16 16:00 10/30/16 17:23 (Lovenox Inj) 80 mg Q24H SQ 10/30/16 15:00 10/30/16 15:21 (Coreg) 3.125 mg Q12HR PO 10/30/16 21:00 10/30/16 21:45 (Vibratab) 100 mg Q12H PO 10/30/16 15:00 10/31/16 03:34 (Diabeta) 1.25 mg DAILYAC PO 10/31/16 08:00 (Prinivil) 5 mg DAILY PO 10/31/16 09:00 (Restoril) 7.5 mg HS PRN PO 10/30/16 18:45 (Ativan) 0.5 mg Q8H PRN PO 10/30/16 18:45 10/31/16 04:25 A/P Problem List: (1) Acute exacerbation of CHF (congestive heart failure) ICD Code: I50.9 Status: Acute (2) Pulmonary embolism ICD Code: I26.99 Status: Chronic (3) DM (diabetes mellitus) ICD Code: E11.9 Status: Chronic (4) HTN (hypertension) ICD Code: I10 Status: Chronic Assessment and Plan 71 y/o male with a history of CHF (Ef 14%), HTN, HLD, depression, and DM presented to the ED with complaints of sob. He states he began to have shortness of breath yesterday after exertion, and continued to have it overnight and he did not sleep well. He was unable to lay flat with out having a hard time breathing. Patient states he feels better after the Lasix, he does take it daily but feels he needs more. Acute CHF exacerbation, [id number], worsening pulmonary edema Chest xray shows Interstitial opacities in lower lung zones bilaterally are new from the prior examination and may represent interstitial pulmonary edema. -Cont Lasix to 40mg BID -Fluid restrictions 1200ml -BNP in AM PE history, 30 days ago, patient does not want to be on Xarelto due to increased cost -Patient agrees with Coumadin, start 7.5mg daily, pharmacy consult. -Bridge with Lovenox daily HTN, chronic -Restart home medications lisinopril and Coreg -Monitor vitals DM, chronic -Restart home medication glyburide -Accu checks with SSI DVT prophylaxis: Coumadin Written by PACHECO Ray acting as scribe for Dr. Alvarado] on 10/31/16 at 10 :25. This note was transcribed by scribe Olga BERGMAN. I, Dr. Rachel Samuel personally performed the history, physical exam, and medical decision making; and confirmed the accuracy of the information in the transcribed note. Authenticated by Dr. Rachel Samuel on 10/31/16 at 10:25. Problem Qualifiers (1) Acute exacerbation of CHF (congestive heart failure): Qualified Code: I50.9 - Acute on chronic congestive heart failure, unspecified congestive heart failure type Olga Schuster Oct 31, 2016 08:47 Rachel Samuel MD Oct 31, 2016 12:23
[2016-10-31] MEDS ORDERED: ASPIRIN 81 MG CHEW TAB CHEW SCH (09:00)
[2016-10-31] MEDS: SODIUM CHLORIDE 0.9% FLUSH 10 ML FLUSH IV FLUSH SCH ×2 (09:24→22:29)
[2016-10-31] MEDS: DOCUSATE SODIUM 100 MG CAP PO SCH ×2 (09:25→22:30)
[2016-10-31] MEDS: glyBURIDE 2.5 MG TAB PO SCH (09:25)
[2016-10-31] MEDS: LISINOPRIL 5 MG TAB PO SCH (09:25)
[2016-10-31] MEDS: CARVEDILOL 3.125 MG TAB PO SCH ×2 (09:26→22:30)
[2016-10-31] MEDS: FUROSEMIDE 40 MG/4 ML VIAL IV PUSH SCH ×2 (09:26→18:04)
[2016-10-31] MEDS: ENOXAPARIN SODIUM 80 MG/0.8 ML SYRINGE SQ SCH (15:26)
[2016-10-31] MEDS: WARFARIN SOD 7.5 MG TAB PO SCH (18:04)
[2016-10-31] MEDS: TEMAZEPAM 7.5 MG CAP PO PRN (22:39)
[2016-11-01] MEDS: DOXYCYCLINE HYCLATE 100 MG TAB PO SCH ×2 (02:37→15:06)
[2016-11-01 04:00] VITALS: BP 110/80; PULSE 93; RESP 20; TEMP 98.1; O2SAT 97
[2016-11-01] MEDS: INSULIN ASPART SUPPLEMENTAL SCALE SQ SCH ×4 (06:18→21:43)
[2016-11-01 07:09] LABS: INTERNATIONAL NORMALIZED RATIO 1.3 RATIO; PROTHROMBIN TIME - PATIENT 14.7 SEC (9.8-11.6)
--- NOTE | 2016-11-01 07:40 | HHI.PR ---
Subjective Remarks Follow up for CHF exacerbation. Patient reports feeling slightly better today. He reports continued diuresis overnight. He still has some mild shortness of breath and nonproductive cough. Also has continued constant mild right anterior chest pain. Denies fevers/chills. Denies leg swelling. He has not yet attempted ambulation except for in his room. The patient states he is used to walking 5+ miles a day, however just prior to this admission he was only able to walk five blocks and then it took him over an hour to recover. The patient was able establish with a PCP Dr Joseph however had to cancel his appointment yesterday due to being in the hospital. He does not follow with a roving hand yet but plans to establish with one after seeing his PCP. Objective Vitals Vital Signs Date Time Temp Pulse Resp B/P Pulse Ox O2 Delivery O2 Flow Rate FiO2 11/01/16 04:00 98.1 93 20 110/80 97 10/31/16 23:48 98.1 92 20 100/64 96 10/31/16 21:32 96 10/31/16 21:18 98.3 94 19 102/59 97 10/31/16 09:00 97.7 101 18 130/83 99 I/O 10/31/16 10/31/16 10/31/16 11/01/16 11/01/16 11/01/16 07:00 15:00 23:00 07:00 15:00 23:00 Intake Total 960 ml Output Total 750 ml Balance 210 ml Intake Oral 960 ml Output Urine Total 750 ml # Voids 6 Result Diagram: 10/30/16 0806 10/31/16 0555 Imaging Last Impressions Chest X-Ray 10/30/16 0756 Signed Impressions: Service Date/Time: October 08:30 - CONCLUSION: 1. Interstitial opacities in lower lung zones bilaterally are new from the prior examination and may represent interstitial pulmonary edema. 2. Chronic blunting the right costophrenic angle is secondary to pleural thickening based on the prior examinations. Kwesi Huber MD Objective Remarks GENERAL: Well-nourished, well-developed male patient in [facility]. SKIN: Warm and dry. No rash. HEENT: Normocephalic. Atraumatic.Pupils equal and round. Mucous membranes pink and moist. NECK: Supple. Trachea midline. CARDIOVASCULAR: Regular rate and rhythm. S1, S2 noted. No murmur appreciated. RESPIRATORY: No accessory muscle use. Faint crackles at bilateral bases, otherwise clear to auscultation. Breath sounds equal bilaterally. GASTROINTESTINAL: Abdomen soft, non-tender, nondistended. Normoactive bowel sounds x4. MUSCULOSKELETAL: No obvious deformities. Extremities without clubbing, cyanosis , or edema. NEUROLOGICAL: Awake and alert. No obvious cranial nerve deficits. Motor grossly within normal limits. Normal speech. PSYCHIATRIC: Appropriate mood and affect; insight and judgment normal. Medications and IVs Current Medications Medications (Trade) Dose Ordered Sig/Keiko Route Start Time Stop Time Status Last Admin (NS Flush) 2 ml UNSCH PRN IV FLUSH 10/30/16 11:15 10/30/16 17:23 (NS Flush) 2 ml BID IV FLUSH 10/30/16 21:00 10/31/16 22:29 (Tylenol) 650 mg Q4H PRN PO 10/30/16 11:15 (Zofran Inj) 4 mg Q6H PRN IVP 10/30/16 11:15 (Dulcolax Supp) 10 mg DAILY PRN RECTAL 10/30/16 11:15 (Colace) 100 mg Q12HR PO 10/30/16 11:15 10/31/16 22:30 (Lasix Inj) 40 mg BID@09,18 IV PUSH 10/30/16 18:00 10/31/16 18:04 (D50w (Vial) Inj) 25 ml UNSCH PRN IV PUSH 10/30/16 13:15 Glucagon 1 mg 1 mg UNSCH PRN OTHER 10/30/16 13:15 (Coumadin Consult Pharmacy) 0 ml @ 0 mls/hr UNSCH OTHER 10/30/16 14:45 (Coumadin) 7.5 mg DAILY@16 PO 10/30/16 16:00 10/31/16 18:04 (Lovenox Inj) 80 mg Q24H SQ 10/30/16 15:00 10/31/16 15:26 (Coreg) 3.125 mg Q12HR PO 10/30/16 21:00 10/31/16 22:30 (Vibratab) 100 mg Q12H PO 10/30/16 15:00 11/01/16 02:37 (Diabeta) 1.25 mg DAILYAC PO 10/31/16 08:00 10/31/16 09:25 (Prinivil) 5 mg DAILY PO 10/31/16 09:00 10/31/16 09:25 (Restoril) 7.5 mg HS PRN PO 10/30/16 18:45 10/31/16 22:39 (Ativan) 0.5 mg Q8H PRN PO 10/30/16 18:45 10/31/16 18:29 A/P Problem List: (1) Acute exacerbation of CHF (congestive heart failure) ICD Code: I50.9 Status: Acute (2) Pulmonary embolism ICD Code: I26.99 Status: Chronic (3) DM (diabetes mellitus) ICD Code: E11.9 Status: Chronic (4) HTN (hypertension) ICD Code: I10 Status: Chronic Assessment and Plan 71 y/o male with a history of CHF (EF 15%), HTN, HLD, depression, and DM presented to the ED with complaints of sob. He states he began to have shortness of breath yesterday after exertion, and continued to have it overnight and he did not sleep well. He was unable to lay flat with out having a hard time breathing. Patient states he feels better after the Lasix, he does take it daily but feels he needs more. Acute CHF Exacerbation, BNP 2098, worsening pulmonary edema. CXR shows Interstitial opacities in lower lung zones bilaterally new from the prior examination and may represent interstitial pulmonary edema. -Cont IV Lasix 40mg BID -Fluid restrictions 1200ml -BNP improved today, now 1342 -check limited echocardiogram to assess EF (previously EF 15% in ) -consider cardiology consult if no improvement Subacute Pulmonary Embolism: diagnosed last month, patient does not want to be on Xarelto due to increased cost -Patient agrees with Coumadin, start 7.5mg daily with pharmacy consult. -Bridge with full strength Lovenox 80mg sq bid -monitor daily INR, currently 1.3 subtherapeutic HTN, chronic -Restart home medications lisinopril and Coreg -Monitor vitals DM, chronic -Restart home medication glyburide -Accu checks with SSI DVT prophylaxis: Coumadin/Lovenox Discussed with Dr. Restrepo. Problem Qualifiers (1) Acute exacerbation of CHF (congestive heart failure): Qualified Code: I50.9 - Acute on chronic congestive heart failure, unspecified congestive heart failure type Krystal Arteaga PA-C Nov 01, 2016 7:40 am
[2016-11-01 09:07] VITALS: BP 116/80; PULSE 62; RESP 18; O2SAT 95
[2016-11-01] MEDS: glyBURIDE 2.5 MG TAB PO SCH (10:06)
[2016-11-01] MEDS: LORazepam 0.5 MG TAB PO PRN ×2 (10:06→21:44)
[2016-11-01] MEDS: FUROSEMIDE 40 MG/4 ML VIAL IV PUSH SCH ×2 (10:06→16:48)
[2016-11-01] MEDS: DOCUSATE SODIUM 100 MG CAP PO SCH ×2 (10:06→21:45)
[2016-11-01] MEDS: LISINOPRIL 5 MG TAB PO SCH (10:06)
[2016-11-01] MEDS: CARVEDILOL 3.125 MG TAB PO SCH ×2 (10:06→21:00)
[2016-11-01] MEDS: SODIUM CHLORIDE 0.9% FLUSH 10 ML FLUSH IV FLUSH SCH ×2 (10:07→21:45)
[2016-11-01] MEDS: ENOXAPARIN SODIUM 80 MG/0.8 ML SYRINGE SQ SCH (15:06)
[2016-11-01] MEDS: WARFARIN SOD 7.5 MG TAB PO SCH (16:48)
[2016-11-01 17:54] VITALS: PULSE 97
[2016-11-01 20:00] VITALS: BP 103/53; PULSE 91; PULSE 95; RESP 20; TEMP 96; O2SAT 98
--- NOTE | 2016-11-01 20:01 | ECHLIM ---
Study Study Date:11/01/2016 STUDY CONCLUSIONS SUMMARY - Left ventricle: The cavity size was normal. Wall thickness was normal. Systolic function was normal. The estimated ejection fraction was 15%. Diffuse hypokinesis. - Mitral valve: Mild regurgitation. - Tricuspid valve: Mild regurgitation. - Pulmonary arteries: PA peak pressure: 42mm Hg (S). If LV function is below 40, please consider prescribing an ACEI or ARB or document rationale for non-use. PROCEDURE DATA STUDY STATUS: Elective. Procedure: Transthoracic echocardiography. Image quality was good. Scanning was performed from the parasternal, apical, and subcostal acoustic windows. Study completion: The patient tolerated the procedure well. Transthoracic echocardiography. M-mode, complete 2D, complete spectral Doppler, and color Doppler. Patient status: Inpatient. CARDIAC ANATOMY LEFT VENTRICLE: The cavity size was normal. Wall thickness was normal. Systolic function was normal. The estimated ejection fraction was 15%. Diffuse hypokinesis. AORTIC VALVE: Trileaflet; normal thickness leaflets. Doppler: Transvalvular velocity was within the normal range. There was no stenosis. No regurgitation. AORTA: Aortic root: The aortic root was normal in size. MITRAL VALVE: Structurally normal valve. Doppler: Transvalvular velocity was within the normal range. There was no evidence for stenosis. Mild regurgitation. LEFT ATRIUM: The atrium was normal in size. RIGHT VENTRICLE: The cavity size was normal. Wall thickness was normal. PULMONIC VALVE: Doppler: Transvalvular velocity was within the normal range. There was no evidence for stenosis. No regurgitation. TRICUSPID VALVE: Structurally normal valve. Doppler: Transvalvular velocity was within the normal range. Mild regurgitation. PULMONARY ARTERY: The main pulmonary artery was normal-sized. Systolic pressure was within the normal range. RIGHT ATRIUM: The atrium was normal in size. PERICARDIUM: There was no pericardial effusion. SYSTEMIC VEINS: Inferior vena cava: The vessel was normal in size. BASIC MEASUREMENTS ADULT NORMAL Left ventricle LV internal dimension, ED, chordal level, *56 mm 43-52 PLAX LV internal dimension, ES, chordal level, *52.9 mm 23-38 PLAX Fractional shortening, chordal level, PLAX *6 % >29 LV posterior wall thickness, ED 9.86 mm IVS/LVPW ratio, ED *1.4 <1.3 Ventricular septum Septal thickness, ED 13.8 mm Right ventricle RV internal dimension, ED, PLAX *39.4 mm 19-38 DOPPLER MEASUREMENTS ADULT NORMAL Main pulmonary artery Pressure, S *42 mm Hg =30 Tricuspid valve Regurgitant peak velocity 282 cm/s Peak RV-RA gradient, S 32 mm Hg Maximal regurgitant velocity 282 cm/s Systemic veins Estimated CVP 10 mm Hg Right ventricle RV pressure, S *42 mm Hg <30 LEGEND: Mean values are shown as u=mean value. Asterisk (*) dutton values outside specified normal range. Prepared and signed by Juarez Ragland [id number]
[2016-11-02] VITALS (10 sets, daily range): BP systolic 89–117; BP diastolic 53–73; PULSE 83–99; RESP 16–20; TEMP 97.4–98.7; O2SAT 98–100
[2016-11-02] MEDS: TEMAZEPAM 7.5 MG CAP PO PRN ×2 (02:06→20:38)
[2016-11-02] MEDS: DOXYCYCLINE HYCLATE 100 MG TAB PO SCH ×2 (02:07→16:40)
[2016-11-02] MEDS: INSULIN ASPART SUPPLEMENTAL SCALE SQ SCH ×4 (06:12→20:38)
[2016-11-02] MEDS: DOCUSATE SODIUM 100 MG CAP PO SCH ×2 (08:04→20:38)
[2016-11-02] MEDS: CARVEDILOL 3.125 MG TAB PO SCH ×2 (08:04→20:38)
[2016-11-02] MEDS: LISINOPRIL 5 MG TAB PO SCH (08:04)
[2016-11-02] MEDS: FUROSEMIDE 40 MG/4 ML VIAL IV PUSH SCH ×2 (08:04→16:41)
[2016-11-02] MEDS: glyBURIDE 2.5 MG TAB PO SCH (08:10)
[2016-11-02] MEDS: SODIUM CHLORIDE 0.9% FLUSH 10 ML FLUSH IV FLUSH SCH ×2 (08:10→20:36)
[2016-11-02] MEDS: LORazepam 0.5 MG TAB PO PRN ×2 (08:13→16:41)
[2016-11-02 10:44] LABS: INTERNATIONAL NORMALIZED RATIO 1.7 RATIO; PROTHROMBIN TIME - PATIENT 18.7 SEC (9.8-11.6)
--- NOTE | 2016-11-02 13:29 | HHI.PR ---
Subjective Remarks Follow up for CHF exacerbation, PE with subtherapeutic INR. The patient reports continued improvement overnight. Shortness of breath improved, still feels slightly dyspneic on exertion. Denies cough. Still with occasional right sided chest discomfort. Denies any other medical complaints. Patient requesting to review his list of medications with PA or prior to discharge. Objective Vitals Vital Signs Date Time Temp Pulse Resp B/P Pulse Ox O2 Delivery O2 Flow Rate FiO2 11/02/16 12:00 97.4 89 20 101/62 98 11/02/16 08:40 99 11/02/16 08:00 97.5 97 16 111/66 100 11/02/16 07:45 98 Nasal Cannula 2.00 11/02/16 05:00 98.7 89 18 113/73 98 11/02/16 04:00 97.5 83 20 94/55 99 11/02/16 00:00 97.5 88 20 89/54 100 94/53 11/01/16 22:00 Nasal Cannula 2.00 11/01/16 20:00 91 11/01/16 20:00 96.0 95 20 103/53 98 11/01/16 17:54 97 I/O 11/01/16 11/01/16 11/01/16 11/02/16 11/02/16 11/02/16 07:00 15:00 23:00 07:00 15:00 23:00 Intake Total 480 ml 602 ml 120 ml Output Total 250 ml 750 ml Balance 230 ml -148 ml 120 ml Intake Oral 480 ml 602 ml 120 ml Output Urine Total 250 ml 750 ml # Bowel Movements 0 Result Diagram: 10/30/16 0806 10/31/16 0555 Imaging Last Impressions Chest X-Ray 10/30/16 0756 Signed Impressions: Service Date/Time: October 08:30 - CONCLUSION: 1. Interstitial opacities in lower lung zones bilaterally are new from the prior examination and may represent interstitial pulmonary edema. 2. Chronic blunting the right costophrenic angle is secondary to pleural thickening based on the prior examinations. Kwesi Huber MD Objective Remarks GENERAL: Well-nourished, well-developed male patient in [place]. SKIN: Warm and dry. No rash. HEENT: Normocephalic. Atraumatic. Mucous membranes pink and moist. NECK: Supple. Trachea midline. CARDIOVASCULAR: Regular rate and rhythm. S1, S2 noted. No murmur appreciated. RESPIRATORY: No accessory muscle use. Breath sounds slightly diminished at bilateral bases, otherwise clear to auscultation. Breath sounds equal bilaterally. GASTROINTESTINAL: Abdomen soft, non-tender, nondistended. Normoactive bowel sounds x4. MUSCULOSKELETAL: No obvious deformities. Extremities without clubbing, cyanosis , or edema. NEUROLOGICAL: Awake and alert. No obvious cranial nerve deficits. Motor grossly within normal limits. Normal speech. PSYCHIATRIC: Appropriate mood and affect; insight and judgment normal. Medications and IVs Current Medications Medications (Trade) Dose Ordered Sig/Keiko Route Start Time Stop Time Status Last Admin (NS Flush) 2 ml UNSCH PRN IV FLUSH 10/30/16 11:15 10/30/16 17:23 (NS Flush) 2 ml BID IV FLUSH 10/30/16 21:00 11/02/16 08:10 (Tylenol) 650 mg Q4H PRN PO 10/30/16 11:15 (Zofran Inj) 4 mg Q6H PRN IVP 10/30/16 11:15 (Dulcolax Supp) 10 mg DAILY PRN RECTAL 10/30/16 11:15 (Colace) 100 mg Q12HR PO 10/30/16 11:15 11/02/16 08:04 (Lasix Inj) 40 mg BID@09,18 IV PUSH 10/30/16 18:00 11/02/16 08:04 (D50w (Vial) Inj) 25 ml UNSCH PRN IV PUSH 10/30/16 13:15 Glucagon 1 mg 1 mg UNSCH PRN OTHER 10/30/16 13:15 (Coumadin Consult Pharmacy) 0 ml @ 0 mls/hr UNSCH OTHER 10/30/16 14:45 (Coumadin) 7.5 mg DAILY@16 PO 10/30/16 16:00 11/01/16 16:48 (Lovenox Inj) 80 mg Q24H SQ 10/30/16 15:00 11/01/16 15:06 (Coreg) 3.125 mg Q12HR PO 10/30/16 21:00 11/02/16 08:04 (Vibratab) 100 mg Q12H PO 10/30/16 15:00 11/02/16 02:07 (Diabeta) 1.25 mg DAILYAC PO 10/31/16 08:00 11/02/16 08:10 (Prinivil) 5 mg DAILY PO 10/31/16 09:00 11/02/16 08:04 (Restoril) 7.5 mg HS PRN PO 10/30/16 18:45 11/02/16 02:06 (Ativan) 0.5 mg Q8H PRN PO 10/30/16 18:45 11/02/16 08:13 A/P Problem List: (1) Acute exacerbation of CHF (congestive heart failure) ICD Code: I50.9 Status: Acute (2) Pulmonary embolism ICD Code: I26.99 Status: Chronic (3) DM (diabetes mellitus) ICD Code: E11.9 Status: Chronic (4) HTN (hypertension) ICD Code: I10 Status: Chronic Assessment and Plan 71 y/o male with a history of CHF (EF 15%), HTN, HLD, depression, and DM presented to the ED with complaints of sob. He states he began to have shortness of breath yesterday after exertion, and continued to have it overnight and he did not sleep well. He was unable to lay flat with out having a hard time breathing. Patient states he feels better after the Lasix, he does take it daily but feels he needs more. Acute CHF Exacerbation, BNP 2098, worsening pulmonary edema. CXR shows Interstitial opacities in lower lung zones bilaterally new from the prior examination and may represent interstitial pulmonary edema. -Continue on IV Lasix 40mg BID -Fluid restrictions 1200ml -BNP now down trending 2098 --> 1342 --> 606 today -checked limited echocardiogram to assess ejection fraction, stable at EF 15 % (previously EF 15% in ) -consult cardiology to consider AICD vs continued medical management Subacute Pulmonary Embolism: diagnosed last month, patient does not want to be on Xarelto due to increased cost -Patient agrees with Coumadin, started 7.5mg daily with pharmacy consult. -Bridge with full strength Lovenox 80mg sq bid -monitor daily INR, currently 1.7, subtherapeutic HTN, chronic -Restart home medications lisinopril and Coreg -Monitor vitals DM, chronic -Restart home medication glyburide -Accu checks with SSI DVT prophylaxis: Coumadin/Lovenox Discussed with Dr. Restrepo. Problem Qualifiers (1) Acute exacerbation of CHF (congestive heart failure): Qualified Code: I50.9 - Acute on chronic congestive heart failure, unspecified congestive heart failure type Krystal Arteaga PA-C Nov 02, 2016 1:29 pm
--- NOTE | 2016-11-02 15:26 | PD.CONS ---
HPI Service Cardiology Consult Requested By Reason for Consult HF Primary Care Physician Kwesi Joseph MD History of Present Illness 71 y/o male with pmhx significant ischemic cardiomyopathy with severe LV systolic dysfunction with EF of 14%, HTN, HLD, DM, PE on Xarelto and ? noncompliance that presented to the ED with worsening SOB for the last 2 days. He states he began to have shortness of breath yesterday after exertion that continued to have it overnigh. Denies chest pain, palpitations, syncope, fever, chills, nausea or vomiting. Cardiology has been consulted for HF management. Review of Systems Consitutional: DENIES: Fatigue, Fever, Chills, Weight gain, Weight loss Eyes: DENIES: Amaurosis Fugax, Change in vision HEENT: DENIES: Lightheadedness, Change in hearing Respiratory: COMPLAINS OF: Shortness of breath, DENIES: See HPI, Cough, Snoring, Wheezing, Sputum production Cardiovascular: DENIES: See HPI, Chest pain, Palpitations, Syncope, Tachycardia Gastrointestinal: DENIES: Nausea, Vomiting, Change in bowel habits, Reflux, Bloody stools, Melena Genitourinary: DENIES: Urinary incontinence, Difficulty voiding Integumentary: DENIES: Rash Neurologic: DENIES: Tingling or numbness, Memory problems, Poor Balance, Stroke symptoms Musculoskeletal: DENIES: Joint pain, Muscle pain, Limited range of motion, Back pain Psychiatric: DENIES: Anxiety, Depression, Sleep disturbances Hematologic: DENIES: Bruising tendencies, Bleeding tendencies Endocrine: DENIES: Weight gain, Weight loss, Thyroid disease Past Family Social History Allergies: Coded Allergies: Morphine (Verified Allergy, Severe, Itching, 10/30/16) *MDRO Multi-Drug Resistant Organism (Verified Adverse Reaction, Unknown, ) 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/16 Past Medical History PFSH CHF (EF 14%) HTN DM Depression HLD Anxiety IVDA 6 months ago TIA PE 09/2016 Endocarditis Reported Medications Reported Meds & Active Scripts Active Furosemide 40 Mg Tab 40 Mg PO DAILY Glyburide 2.5 Mg Tab 1.25 Mg PO DAILYAC Lisinopril 5 Mg Tab 5 Mg PO DAILY Coreg (Carvedilol) 3.125 Mg Tab 3.125 Mg PO Q12HR Aspirin EC (Aspirin) 81 Mg Tabdr 81 Mg PO DAILY Doxycycline Hyclate 100 Mg Tab 100 Mg PO Q12H Active Ordered Medications Current Medications Medications (Trade) Dose Ordered Sig/Keiko Route Start Time Stop Time Status Last Admin (NS Flush) 2 ml UNSCH PRN IV FLUSH 10/30/16 11:15 10/30/16 17:23 (NS Flush) 2 ml BID IV FLUSH 10/30/16 21:00 11/02/16 08:10 (Tylenol) 650 mg Q4H PRN PO 10/30/16 11:15 (Zofran Inj) 4 mg Q6H PRN IVP 10/30/16 11:15 (Dulcolax Supp) 10 mg DAILY PRN RECTAL 10/30/16 11:15 (Colace) 100 mg Q12HR PO 10/30/16 11:15 11/02/16 08:04 (Lasix Inj) 40 mg BID@09,18 IV PUSH 10/30/16 18:00 11/02/16 08:04 (D50w (Vial) Inj) 25 ml UNSCH PRN IV PUSH 10/30/16 13:15 Glucagon 1 mg 1 mg UNSCH PRN OTHER 10/30/16 13:15 (Coumadin Consult Pharmacy) 0 ml @ 0 mls/hr UNSCH OTHER 10/30/16 14:45 (Coumadin) 7.5 mg DAILY@16 PO 10/30/16 16:00 11/01/16 16:48 (Lovenox Inj) 80 mg Q24H SQ 10/30/16 15:00 11/01/16 15:06 (Coreg) 3.125 mg Q12HR PO 10/30/16 21:00 11/02/16 08:04 (Vibratab) 100 mg Q12H PO 10/30/16 15:00 11/02/16 02:07 (Diabeta) 1.25 mg DAILYAC PO 10/31/16 08:00 11/02/16 08:10 (Prinivil) 5 mg DAILY PO 10/31/16 09:00 11/02/16 08:04 (Restoril) 7.5 mg HS PRN PO 10/30/16 18:45 11/02/16 02:06 (Ativan) 0.5 mg Q8H PRN PO 10/30/16 18:45 11/02/16 08:13 Social History IVDA 6 months ago Physical Exam Vital Signs Vital Signs Date Time Temp Pulse Resp B/P Pulse Ox O2 Delivery O2 Flow Rate FiO2 11/02/16 12:00 97.4 89 20 101/62 98 11/02/16 08:40 99 11/02/16 08:00 97.5 97 16 111/66 100 11/02/16 07:45 98 Nasal Cannula 2.00 11/02/16 05:00 98.7 89 18 113/73 98 11/02/16 04:00 97.5 83 20 94/55 99 11/02/16 00:00 97.5 88 20 89/54 100 94/53 11/01/16 22:00 Nasal Cannula 2.00 11/01/16 20:00 91 11/01/16 20:00 96.0 95 20 103/53 98 11/01/16 17:54 97 Physical Exam GENERAL: Well-nourished, well-developed patient. SKIN: Warm and dry. HEAD: Normocephalic. EYES: No scleral icterus. No injection or drainage. NECK: Supple, trachea midline. No JVD or lymphadenopathy. CARDIOVASCULAR: Regular rate and rhythm without murmurs, gallops, or rubs. RESPIRATORY: Breath sounds equal bilaterally. No accessory muscle use. GASTROINTESTINAL: Abdomen soft, non-tender, nondistended. EXTREMITIES: No cyanosis, or edema. NEUROLOGICAL: Awake, alert, and oriented x 3. Non-focal. Laboratory Laboratory Tests Test 11/02/16 07:56 Prothrombin Time 18.7 Prothromb Time International 1.7 Ratio B-Type Natriuretic Peptide 606 Result Diagram: 10/30/16 0806 10/31/16 0555 Imaging Last Impressions Chest X-Ray 10/30/16 0756 Signed Impressions: Service Date/Time: October 08:30 - CONCLUSION: 1. Interstitial opacities in lower lung zones bilaterally are new from the prior examination and may represent interstitial pulmonary edema. 2. Chronic blunting the right costophrenic angle is secondary to pleural thickening based on the prior examinations. Kwesi Huber MD Assessment and Plan Problem List: (1) Acute exacerbation of CHF (congestive heart failure) Assessment and Plan: Acute on chronic systolic CHF exacerbation EF 15%. Noncompliant. Large fixed defect on MPI 2017. Recommendations: 1. Cont Coreg 2. IV diuresis 3. Strict I/O 4. Daily weight 5. Low salt diet 6. Cont Lisinopril 7. Cont Lipitor 8. Start Aldactone 25mg PO daily 9. Cont Aspirin 81mg PO daily 10. LifeVest upon discharge 11. Start Imdur 30mg PO daily (2) Atypical chest pain (3) Dyspnea (4) Dyslipidemia (5) CHF (congestive heart failure) (6) Dilated cardiomyopathy (7) Pulmonary embolism (8) HTN (hypertension) (9) Chest pain (10) Hyperlipidemia (11) DM (diabetes mellitus) Problem Qualifiers (1) Acute exacerbation of CHF (congestive heart failure): Qualified Code: I50.9 - Acute on chronic congestive heart failure, unspecified congestive heart failure type Henry-Juarez Sr MD Nov 02, 2016 15:26
[2016-11-02] MEDS: WARFARIN SOD 7.5 MG TAB PO SCH (16:40)
[2016-11-02] MEDS: ENOXAPARIN SODIUM 80 MG/0.8 ML SYRINGE SQ SCH (16:40)
[2016-11-03] VITALS (10 sets, daily range): BP systolic 95–114; BP diastolic 51–64; PULSE 83–96; RESP 16–20; TEMP 96–98.3; O2SAT 94–100
[2016-11-03] MEDS: DOXYCYCLINE HYCLATE 100 MG TAB PO SCH (03:00)
[2016-11-03] MEDS: ISOSORBIDE MONONITRATE 30 MG TAB PO SCH (05:29)
[2016-11-03] MEDS: INSULIN ASPART SUPPLEMENTAL SCALE SQ SCH ×4 (06:07→20:30)
[2016-11-03 08:46] LABS: AUTOMATED NEUTROPHIL # 2.3 TH/MM3 (1.8-7.7); BASOPHIL % 0.9 % (0.0-2.0); EOSINOPHIL # 0.2 TH/MM3 (0-0.4); EOSINOPHIL % 4.7 % (0.0-4.0); HEMO FLAGS DIFF FINAL; LYMPH % 32.8 % (9.0-44.0); LYMPHOCYTE # 1.4 TH/MM3 (1.0-4.8); MEAN CELL VOLUME 87.5 FL (80.0-100.0); MEAN CORPUSCULAR HEMOGLOBIN 28.9 PG (27.0-34.0); MEAN CORPUSCULAR HGB CONC 33.1 % (32.0-36.0); MONO % 10.4 % (0.0-8.0); NEUT % 51.2 % (16.0-70.0); PLATELET COUNT 242 TH/MM3 (150-450); RED BLOOD COUNT 5.03 MIL/MM3 (4.50-5.90); RED CELL DISTRIBUTION WIDTH 19.2 % (11.6-17.2); WHITE BLOOD COUNT 4.4 TH/MM3 (4.0-11.0)
[2016-11-03] MEDS: FUROSEMIDE 40 MG/4 ML VIAL IV PUSH SCH ×2 (08:51→17:05)
[2016-11-03] MEDS: CARVEDILOL 3.125 MG TAB PO SCH ×2 (08:51→20:30)
[2016-11-03] MEDS: glyBURIDE 2.5 MG TAB PO SCH (08:51)
[2016-11-03] MEDS: DOCUSATE SODIUM 100 MG CAP PO SCH ×2 (08:51→20:30)
[2016-11-03] MEDS: LISINOPRIL 5 MG TAB PO SCH (08:51)
[2016-11-03] MEDS: SODIUM CHLORIDE 0.9% FLUSH 10 ML FLUSH IV FLUSH SCH ×2 (08:52→20:30)
[2016-11-03 08:55] LABS: INTERNATIONAL NORMALIZED RATIO 2.2 RATIO; PROTHROMBIN TIME - PATIENT 25.2 SEC (9.8-11.6)
[2016-11-03 09:11] LABS: BICARBONATE 31.1 MEQ/L (21.0-32.0); POTASSIUM 4.2 MEQ/L (3.5-5.1)
[2016-11-03] MEDS ORDERED: CARV3.125 PO (10:58)
[2016-11-03] MEDS ORDERED: GLYB2.5T3 PO (10:58)
[2016-11-03] MEDS ORDERED: ISOS30TA3 PO (10:58)
[2016-11-03] MEDS ORDERED: LISI-519 PO (10:58)
[2016-11-03] MEDS ORDERED: COUM7.5T PO (10:58)
[2016-11-03] MEDS ORDERED: FURO40TA PO (10:58)
[2016-11-03] MEDS: LORazepam 0.5 MG TAB PO PRN ×2 (11:23→20:31)
--- NOTE | 2016-11-03 12:17 | HHI.PR ---
Subjective Remarks Follow up for CHF exacerbation. The patient reports continued improvement. Shortness of breath improved, only dyspneic with exertion. Denies cough. Denies chest pain today. Denies any other medical complaints. Provided updated list of medications and reviewed with the patient, answered all questions. Per cardiology, patient needs life vest prior to discharge. Objective Vitals Vital Signs Date Time Temp Pulse Resp B/P Pulse Ox O2 Delivery O2 Flow Rate FiO2 11/03/16 08:00 96.0 96 16 104/58 100 11/03/16 04:00 97.6 88 16 114/64 97 11/03/16 00:00 97.2 83 19 101/57 94 11/02/16 20:00 95 11/02/16 20:00 97.5 89 20 117/56 98 11/02/16 18:42 100 Nasal Cannula 2.00 11/02/16 16:00 97.5 92 18 112/59 100 I/O 11/02/16 11/02/16 11/02/16 11/03/16 11/03/16 11/03/16 07:00 15:00 23:00 07:00 15:00 23:00 Intake Total 120 ml 840 ml Output Total 1975 ml Balance 120 ml -1135 ml Intake Oral 120 ml 840 ml Output Urine Total 1975 ml # Bowel Movements 2 Result Diagram: 11/03/16 0747 11/03/16 0747 Imaging Last Impressions Chest X-Ray 10/30/16 0756 Signed Impressions: Service Date/Time: October 08:30 - CONCLUSION: 1. Interstitial opacities in lower lung zones bilaterally are new from the prior examination and may represent interstitial pulmonary edema. 2. Chronic blunting the right costophrenic angle is secondary to pleural thickening based on the prior examinations. Kwesi Huber MD Objective Remarks GENERAL: Well-nourished, well-developed male patient in NAD. SKIN: Warm and dry. No rash. HEENT: Normocephalic. Atraumatic. Mucous membranes pink and moist. NECK: Supple. Trachea midline. CARDIOVASCULAR: Regular rate and rhythm. S1, S2 noted. No murmur appreciated. RESPIRATORY: No accessory muscle use. Breath sounds slightly diminished at bilateral bases, otherwise clear to auscultation. Breath sounds equal bilaterally. GASTROINTESTINAL: Abdomen soft, non-tender, nondistended. Normoactive bowel sounds x4. MUSCULOSKELETAL: No obvious deformities. Extremities without clubbing, cyanosis , or edema. NEUROLOGICAL: Awake and alert. No obvious cranial nerve deficits. Motor grossly within normal limits. Normal speech. PSYCHIATRIC: Appropriate mood and affect; insight and judgment normal. Medications and IVs Current Medications Medications (Trade) Dose Ordered Sig/Keiko Route Start Time Stop Time Status Last Admin (NS Flush) 2 ml UNSCH PRN IV FLUSH 10/30/16 11:15 10/30/16 17:23 (NS Flush) 2 ml BID IV FLUSH 10/30/16 21:00 11/03/16 08:52 (Tylenol) 650 mg Q4H PRN PO 10/30/16 11:15 (Zofran Inj) 4 mg Q6H PRN IVP 10/30/16 11:15 (Dulcolax Supp) 10 mg DAILY PRN RECTAL 10/30/16 11:15 (Colace) 100 mg Q12HR PO 10/30/16 11:15 11/03/16 08:51 (Lasix Inj) 40 mg BID@09,18 IV PUSH 10/30/16 18:00 11/03/16 08:51 (D50w (Vial) Inj) 25 ml UNSCH PRN IV PUSH 10/30/16 13:15 Glucagon 1 mg 1 mg UNSCH PRN OTHER 10/30/16 13:15 (Coumadin Consult Pharmacy) 0 ml @ 0 mls/hr UNSCH OTHER 10/30/16 14:45 (Coumadin) 7.5 mg DAILY@16 PO 10/30/16 16:00 11/02/16 16:40 (Lovenox Inj) 80 mg Q24H SQ 10/30/16 15:00 11/02/16 16:40 (Coreg) 3.125 mg Q12HR PO 10/30/16 21:00 11/03/16 08:51 (Vibratab) 100 mg Q12H PO 10/30/16 15:00 11/03/16 03:00 (Diabeta) 1.25 mg DAILYAC PO 10/31/16 08:00 11/03/16 08:51 (Prinivil) 5 mg DAILY PO 10/31/16 09:00 11/03/16 08:51 (Restoril) 7.5 mg HS PRN PO 10/30/16 18:45 11/02/16 20:38 (Ativan) 0.5 mg Q8H PRN PO 10/30/16 18:45 11/03/16 11:23 (Imdur) 30 mg DAILY@07 PO 11/03/16 07:00 11/03/16 05:29 A/P Problem List: (1) Acute exacerbation of CHF (congestive heart failure) ICD Code: I50.9 Status: Acute (2) Pulmonary embolism ICD Code: I26.99 Status: Chronic (3) DM (diabetes mellitus) ICD Code: E11.9 Status: Chronic (4) HTN (hypertension) ICD Code: I10 Status: Chronic Assessment and Plan 71 y/o male with a history of CHF (EF 15%), HTN, HLD, depression, and DM presented to the ED with complaints of sob. He states he began to have shortness of breath yesterday after exertion, and continued to have it overnight and he did not sleep well. He was unable to lay flat with out having a hard time breathing. Patient states he feels better after the Lasix, he does take it daily but feels he needs more. Acute CHF Exacerbation, BNP 2098, worsening pulmonary edema. CXR shows Interstitial opacities in lower lung zones bilaterally new from the prior examination and may represent interstitial pulmonary edema. -Continue on IV Lasix 40mg BID -Fluid restrictions 1200ml -BNP now trending down 2098 --> 1342 --> 606 -checked limited echocardiogram to assess ejection fraction, stable at EF 15 % (previously EF 15% in ) -continue patient's JENNIFER, BB -consult cardiology, started on Imdur 30mg daily, and patient needs life vest prior to discharge Subacute Pulmonary Embolism: diagnosed last month, patient does not want to be on Xarelto due to increased cost -Patient agrees with Coumadin, started 7.5mg daily with pharmacy consult. -Bridged with full strength Lovenox 80mg sq bid -monitor daily INR -INR 2.2 today, therapeutic HTN, chronic -Restart home medications lisinopril and Coreg -Monitor vitals DM, chronic -Restart home medication glyburide -Accu checks with SSI DVT prophylaxis: Coumadin/Lovenox Discussed with Dr. Restrepo. Discharge Planning Patient can likely be discharged after LifeVest arranged. Problem Qualifiers (1) Acute exacerbation of CHF (congestive heart failure): Qualified Code: I50.9 - Acute on chronic congestive heart failure, unspecified congestive heart failure type Krystal Arteaga PA-C November 03, 2016 12:17
[2016-11-03] MEDS ORDERED: LORA-392 PO (13:46)
--- NOTE | 2016-11-03 15:17 | PD.CARD.PN ---
Subjective Subjective Remarks no CV complaints Objective Medications Current Medications Medications (Trade) Dose Ordered Sig/Keiko Route Start Time Stop Time Status Last Admin (NS Flush) 2 ml UNSCH PRN IV FLUSH 10/30/16 11:15 10/30/16 17:23 (NS Flush) 2 ml BID IV FLUSH 10/30/16 21:00 11/03/16 08:52 (Tylenol) 650 mg Q4H PRN PO 10/30/16 11:15 (Zofran Inj) 4 mg Q6H PRN IVP 10/30/16 11:15 (Dulcolax Supp) 10 mg DAILY PRN RECTAL 10/30/16 11:15 (Colace) 100 mg Q12HR PO 10/30/16 11:15 11/03/16 08:51 (Lasix Inj) 40 mg BID@09,18 IV PUSH 10/30/16 18:00 11/03/16 08:51 (D50w (Vial) Inj) 25 ml UNSCH PRN IV PUSH 10/30/16 13:15 Glucagon 1 mg 1 mg UNSCH PRN OTHER 10/30/16 13:15 (Coumadin Consult Pharmacy) 0 ml @ 0 mls/hr UNSCH OTHER 10/30/16 14:45 (Coumadin) 7.5 mg DAILY@16 PO 10/30/16 16:00 11/02/16 16:40 (Lovenox Inj) 80 mg Q24H SQ 10/30/16 15:00 11/02/16 16:40 (Coreg) 3.125 mg Q12HR PO 10/30/16 21:00 11/03/16 08:51 (Diabeta) 1.25 mg DAILYAC PO 10/31/16 08:00 11/03/16 08:51 (Prinivil) 5 mg DAILY PO 10/31/16 09:00 11/03/16 08:51 (Restoril) 7.5 mg HS PRN PO 10/30/16 18:45 11/02/16 20:38 (Ativan) 0.5 mg Q8H PRN PO 10/30/16 18:45 11/03/16 11:23 (Imdur) 30 mg DAILY@07 PO 11/03/16 07:00 11/03/16 05:29 Vital Signs / I&O Vital Signs Date Time Temp Pulse Resp B/P Pulse Ox O2 Delivery O2 Flow Rate FiO2 11/03/16 12:36 2.00 11/03/16 12:00 98.3 90 20 95/54 98 11/03/16 08:00 96.0 96 16 104/58 100 11/03/16 04:00 97.6 88 16 114/64 97 11/03/16 00:00 97.2 83 19 101/57 94 11/02/16 20:00 95 11/02/16 20:00 97.5 89 20 117/56 98 11/02/16 18:42 100 Nasal Cannula 2.00 11/02/16 16:00 97.5 92 18 112/59 100 I/O 11/02/16 11/02/16 11/02/16 11/03/16 11/03/16 11/03/16 07:00 15:00 23:00 07:00 15:00 23:00 Intake Total 120 ml 840 ml Output Total 1975 ml Balance 120 ml -1135 ml Intake Oral 120 ml 840 ml Output Urine Total 1975 ml # Bowel Movements 2 Physical Exam GENERAL: Well-nourished, well-developed patient. SKIN: Warm and dry. HEAD: Normocephalic. EYES: No scleral icterus. No injection or drainage. NECK: Supple, trachea midline. No JVD or lymphadenopathy. CARDIOVASCULAR: Regular rate and rhythm without murmurs, gallops, or rubs. RESPIRATORY: Breath sounds equal bilaterally. No accessory muscle use. GASTROINTESTINAL: Abdomen soft, non-tender, nondistended. EXTREMITIES: No cyanosis, +edema. Laboratory Laboratory Tests Test 11/03/16 11/03/16 07:47 08:30 White Blood Count 4.4 TH/MM3 Red Blood Count 5.03 MIL/MM3 Hemoglobin 14.6 GM/DL Hematocrit 44.0 % Mean Corpuscular Volume 87.5 FL Mean Corpuscular Hemoglobin 28.9 PG Mean Corpuscular Hemoglobin 33.1 % Concent Red Cell Distribution Width 19.2 % Platelet Count 242 TH/MM3 Mean Platelet Volume 9.1 FL Neutrophils (%) (Auto) 51.2 % Lymphocytes (%) (Auto) 32.8 % Monocytes (%) (Auto) 10.4 % Eosinophils (%) (Auto) 4.7 % Basophils (%) (Auto) 0.9 % Neutrophils # (Auto) 2.3 TH/MM3 Lymphocytes # (Auto) 1.4 TH/MM3 Monocytes # (Auto) 0.5 TH/MM3 Eosinophils # (Auto) 0.2 TH/MM3 Basophils # (Auto) 0.0 TH/MM3 CBC Comment DIFF FINAL Differential Comment Sodium Level 137 MEQ/L Potassium Level 4.2 MEQ/L Chloride Level 98 MEQ/L Carbon Dioxide Level 31.1 MEQ/L Anion Gap 8 MEQ/L Blood Urea Nitrogen 25 MG/DL Creatinine 1.03 MG/DL Estimat Glomerular Filtration 72 ML/MIN Rate Random Glucose 157 MG/DL Calcium Level 10.1 MG/DL Phosphorus Level 3.0 MG/DL Magnesium Level 2.0 MG/DL Albumin 3.5 GM/DL Prothrombin Time 25.2 SEC Prothromb Time International 2.2 RATIO Ratio Imaging Last Impressions Chest X-Ray 10/30/16 0756 Signed Impressions: Service Date/Time: October 08:30 - CONCLUSION: 1. Interstitial opacities in lower lung zones bilaterally are new from the prior examination and may represent interstitial pulmonary edema. 2. Chronic blunting the right costophrenic angle is secondary to pleural thickening based on the prior examinations. Kwesi Huber MD Assessment and Plan Problem List: (1) Acute exacerbation of CHF (congestive heart failure) Assessment and Plan: Acute on chronic systolic CHF exacerbation EF 15%. Noncompliant. Large fixed defect on MPI 2017. Recommendations: 1. Cont Coreg 2. transition to PO Lasix 3. Strict I/O 4. Daily weight 5. Low salt diet 6. Cont Lisinopril 7. Cont Lipitor 8. Cont Aldactone 25mg PO daily 9. Cont Aspirin 81mg PO daily 10. Cont Imdur 30mg PO daily LifeVest upon discharge Sign off (2) Atypical chest pain (3) Dyspnea (4) Dyslipidemia (5) CHF (congestive heart failure) (6) Dilated cardiomyopathy (7) Pulmonary embolism (8) HTN (hypertension) (9) Chest pain (10) Hyperlipidemia (11) DM (diabetes mellitus) Problem Qualifiers (1) Acute exacerbation of CHF (congestive heart failure): Qualified Code: I50.9 - Acute on chronic congestive heart failure, unspecified congestive heart failure type Henry-Juarez Sr MD November 03, 2016 15:17
[2016-11-03] MEDS ORDERED: PILL SPLITTER OTHER PRN (15:30)
[2016-11-03] MEDS: WARFARIN SOD 7.5 MG TAB PO SCH (17:05)
[2016-11-03] MEDS: ENOXAPARIN SODIUM 80 MG/0.8 ML SYRINGE SQ SCH (17:05)
[2016-11-03] MEDS: TEMAZEPAM 7.5 MG CAP PO PRN (22:33)
[2016-11-04] VITALS (7 sets, daily range): BP systolic 84–114; BP diastolic 53–72; PULSE 87–91; RESP 18–20; TEMP 97.1–97.5; O2SAT 95–99
[2016-11-04] MEDS: ISOSORBIDE MONONITRATE 30 MG TAB PO SCH ×2 (05:40→08:57)
[2016-11-04] MEDS: INSULIN ASPART SUPPLEMENTAL SCALE SQ SCH ×3 (05:41→16:00)
[2016-11-04 08:48] LABS: INTERNATIONAL NORMALIZED RATIO 2.4 RATIO; PROTHROMBIN TIME - PATIENT 27.1 SEC (9.8-11.6)
[2016-11-04] MEDS: glyBURIDE 2.5 MG TAB PO SCH (08:58)
[2016-11-04] MEDS: FUROSEMIDE 40 MG/4 ML VIAL IV PUSH SCH (08:58)
[2016-11-04] MEDS: DOCUSATE SODIUM 100 MG CAP PO SCH (08:58)
[2016-11-04] MEDS: LISINOPRIL 5 MG TAB PO SCH (08:58)
[2016-11-04] MEDS: CARVEDILOL 3.125 MG TAB PO SCH (08:59)
[2016-11-04] MEDS: SODIUM CHLORIDE 0.9% FLUSH 10 ML FLUSH IV FLUSH SCH (08:59)
[2016-11-04] MEDS ORDERED: SPIRONOLACTONE 25 MG TAB PO SCH (09:00)
[2016-11-04] MEDS ORDERED: SPIR25TA PO (09:58)
[2016-11-04] MEDS: LORazepam 0.5 MG TAB PO PRN (16:00)
[2016-11-04] MEDS: WARFARIN SOD 7.5 MG TAB PO SCH (16:00)
--- NOTE | 2016-11-05 09:12 | HHI.DS ---
Discharge Summary Admission Date Oct 31, 2016 at 14:21 Discharge Date: November 04, 2016 Admitting Diagnosis CHF exacerbation, dyspnea (1) Acute exacerbation of CHF (congestive heart failure) ICD Code: I50.9 (2) Pulmonary embolism ICD Code: I26.99 (3) DM (diabetes mellitus) ICD Code: E11.9 (4) HTN (hypertension) ICD Code: I10 Procedures no invasive procedures. Brief History - From Admission 71 y/o male with a history of CHF (Ef 14%), HTN, HLD, depression, and DM presented to the ED with complaints of sob. He states he began to have shortness of breath yesterday after exertion, and continued to have it overnight and he did not sleep well. He was unable to lay flat with out having a hard time breathing. Patient states he feels better after the Lasix, he does take it daily but feels he needs more. He does have a cough, without much sputum. Denies any chest pain, nausea or vomiting. Patient states he is on Xarelto because of a PE one month ago, but states he does not want to be on it because it is expensive, and wishes to be changed to another medication. CBC/BMP: 11/03/16 0747 11/03/16 0747 Significant Findings Laboratory Tests Test 11/03/16 11/03/16 11/04/16 07:47 08:30 07:20 Red Cell Distribution Width 19.2 % (11.6-17.2) Monocytes (%) (Auto) 10.4 % (0.0-8.0) Eosinophils (%) (Auto) 4.7 % (0.0-4.0) Blood Urea Nitrogen 25 MG/DL (7-18) Estimat Glomerular Filtration 72 ML/MIN (>89) Rate Random Glucose 157 MG/DL (74-106) Prothrombin Time 25.2 SEC 27.1 SEC (9.8-11.6) (9.8-11.6) Imaging Last Impressions Chest X-Ray 10/30/16 6237 Signed Impressions: Service Date/Time: October 08:30 - CONCLUSION: 1. Interstitial opacities in lower lung zones bilaterally are new from the prior examination and may represent interstitial pulmonary edema. 2. Chronic blunting the right costophrenic angle is secondary to pleural thickening based on the prior examinations. Kwesi Huber MD PE at Discharge GENERAL: patient walking around room. Appears couple. Alert and oriented 3. SKIN: Warm and dry. HEAD: Normocephalic. EYES: No scleral icterus. No injection or drainage. MUSCULOSKELETAL: No cyanosis, or edema. Pt update on day of discharge patient says he is feeling well. Denies any chest pain or shortness of breath. Walking around room. Hospital Course 71 y/o male with a history of CHF (EF 15%), HTN, HLD, depression, and DM presented to the ED with complaints of sob. He states he began to have shortness of breath yesterday after exertion, and continued to have it overnight and he did not sleep well. He was unable to lay flat with out having a hard time breathing. Patient states he feels better after the Lasix, he does take it daily but feels he needs more. Acute CHF Exacerbation, BNP 2098, worsening pulmonary edema. CXR shows Interstitial opacities in lower lung zones bilaterally new from the prior examination and may represent interstitial pulmonary edema. -Continue on IV Lasix 40mg BID -Fluid restrictions 1200ml -BNP now trending down 2098 --> 1342 --> 606 -checked limited echocardiogram to assess ejection fraction, stable at EF 15 % (previously EF 15% in ) -continue patient's JENNIFER, BB -consult cardiology, started on Imdur 30mg daily, and patient needs life vest prior to discharge Subacute Pulmonary Embolism: diagnosed last month, patient does not want to be on Xarelto due to increased cost -Patient agrees with Coumadin, started 7.5mg daily with pharmacy consult. -Bridged with full strength Lovenox 80mg sq bid -monitor daily INR -INR 2.2 today, therapeutic HTN, chronic -Restart home medications lisinopril and Coreg -Monitor vitals DM, chronic -Restart home medication glyburide -Accu checks with SSI DVT prophylaxis: Coumadin/Lovenox Discussed with Dr. Restrepo. Discharge Planning Patient can likely be discharged after LifeVest arranged. Pt Condition on Discharge: Good Discharge Disposition: Discharge Home Discharge Time: <= 30 minutes Discharge Instructions DIET: Follow Instructions for: Heart Healthy Diet Fluid Restrictions: 1.5 Liters Activities you can perform: Regular-No Restrictions Follow up Referrals: Cardiology - 2 Weeks with Juarez Ragland MD PCP Follow-up - 1 Week with Kwesi Joseph MD New Medications: Spironolactone (Spironolactone) 25 Mg Tab 12.5 MG PO DAILY heart #15 Ref 0 TAB Isosorbide Mononitrate ER (Isosorbide Mononitrate ER) 30 Mg Ranulfo 30 MG PO DAILY@07 CHF #30 TAB Lorazepam (Ativan) 0.5 Mg Tab 0.5 MG PO Q8H PRN ANXIETY #10 TAB Warfarin (Coumadin) 7.5 Mg Tab 7.5 MG PO DAILY@16 Prevent Blood Clot #30 TAB Continued Medications: Carvedilol (Coreg) 3.125 Mg Tab 3.125 MG PO Q12HR CHF #60 TAB (This prescription has been renewed) Furosemide (Furosemide) 40 Mg Tab 40 MG PO DAILY CHF #30 Ref 0 TAB (This prescription has been renewed) Glyburide (Glyburide) 2.5 Mg Tab 1.25 MG PO DAILYAC Diabetes #30 TAB (This prescription has been renewed) Lisinopril (Lisinopril) 5 Mg Tab 5 MG PO DAILY CHF #30 TAB (This prescription has been renewed) Discontinued Medications: Aspirin DR (Aspirin EC) 81 Mg Tabdr 81 MG PO DAILY cardiac protection #30 TAB Doxycycline Hyclate (Doxycycline Hyclate) 100 Mg Tab 100 MG PO Q12H #60 TAB Sadiq Restrepo MD November 05, 2016 09:12 Sadiq Restrepo MD November 05, 2016 09:12
== END 2016-11-04 18:37 | disposition home or self-care (01) | DRG 291 ==
LOC: NEPE 07:46 → NEDA 11:10 → NEPFCDU 15:14 → OBSVTOIN 10-31 14:21 → N04A 11-02 04:52
PROVIDERS: ADMIT Internal Medicine; ATTEND Internal Medicine
DX: I50.23 Acute on chronic systolic (congestive) heart failure (principal); I26.99 Other pulmonary embolism without acute cor pulmonale; I42.9 Cardiomyopathy, unspecified; E11.9 Type 2 diabetes mellitus without complications; E78.5 Hyperlipidemia, unspecified; I11.0 Hypertensive heart disease with heart failure; I25.10 Atherosclerotic heart disease of native coronary artery without angina pectoris; Z79.01 Long term (current) use of anticoagulants; Z86.73 Personal history of transient ischemic attack (TIA), and cerebral infarction without residual deficits; Z91.19 Patient's noncompliance with other medical treatment and regimen; Z99.81 Dependence on supplemental oxygen
CPT/HCPCS: 36600; 71010; 80053; 80069; 82550; 82805; 82948; 83735; 83880; 84443; 84484; 85025; 85610; 85730; 93005; 93308; 96374; G0378; G8987-GP; G8988-GP; J1650; J1815; J1940

== ENCOUNTER 2016-11-21 11:05 | Inpatient (IN) | payer MEDICARE ==
[2016-11-21] VITALS (10 sets, daily range): BP systolic 113–140; BP diastolic 72–93; PULSE 98–112; RESP 14–22; TEMP 97.4–98.6; O2SAT 96–100
[~2016-11-21] VITALS: Ht 182.9 cm; Wt 74.5 kg
[~2016-11-21 11:05] MED LIST changes: -ASPI81TA11 PO; -AZIT250T3 PO; +COUM7.5T PO; -DOXY100T PO; +ISOS30TA3 PO; +LORA-392 PO; -OXYGENTANK NAS.CANULA; -PRED20 PO; +SPIR25TA PO; -XARE20TA PO
[2016-11-21] MEDS ORDERED: ASPI1TAB69 PO (11:24)
[2016-11-21] MEDS ORDERED: METF500T PO (11:24)
[2016-11-21] MEDS ORDERED: SODIUM CHLORIDE 0.9% FLUSH 10 ML FLUSH IVF PRN (11:30)
[2016-11-21 11:35] LABS: AUTOMATED NEUTROPHIL # 5.2 TH/MM3 (1.8-7.7); BASOPHIL % 0.5 % (0.0-2.0); EOSINOPHIL # 0.1 TH/MM3 (0-0.4); EOSINOPHIL % 1.3 % (0.0-4.0); HEMATOCRIT 39.2 % (39.0-51.0); HEMO FLAGS DIFF FINAL; LYMPH % 16.9 % (9.0-44.0); LYMPHOCYTE # 1.2 TH/MM3 (1.0-4.8); MEAN CELL VOLUME 88.4 FL (80.0-100.0); MEAN CORPUSCULAR HEMOGLOBIN 28.8 PG (27.0-34.0); MEAN CORPUSCULAR HGB CONC 32.6 % (32.0-36.0); MONO % 6.1 % (0.0-8.0); NEUT % 75.2 % (16.0-70.0); PLATELET COUNT 242 TH/MM3 (150-450); RED BLOOD COUNT 4.44 MIL/MM3 (4.50-5.90); RED CELL DISTRIBUTION WIDTH 17.9 % (11.6-17.2); WHITE BLOOD COUNT 6.9 TH/MM3 (4.0-11.0)
--- NOTE | 2016-11-21 11:52 | PD ---
HPI Chief Complaint: Chest Pain Time Seen by Provider: 11:22 Travel History International Travel<30 days: No Contact w/Intl Traveler<30days: No Traveled to known affect area: No History of Present Illness HPI 71 year old male presents to the emergency department for evaluation of midsternal chest pain that started last night around 11pm. Patient states that he started with some mild midsternal chest pain that radiates to the right shoulder at 11PM last night. He states that he went to bed and woke up with worsening chest pain at 1 AM. He states that when he woke up this morning, the chest pain was 10/10 severe states it is a pressure. It'll occasionally radiate to the right shoulder. He is taken aspirin this morning and is also on Coumadin for history of PE and antiphospholipid syndrome. Patient received nitroglycerin 2 sublingually in the ambulance. He states his pain is gone after nitroglycerin. Patient was recently discharged from the Hospital after being admitted for CHF. He states that this is his typical chest pain that he gets with his CHF, but this one was the worst it has ever been. Patient is chronically on oxygen 2 L at home when he states he needs it. He states that he did use it last night. He has a life vest on. He states he does not currently have a head pumper and is working on getting one. He recently found a primary care physician, Dr. Joseph. Patient has a past medical history of CHF with ejection fraction of 14%, hypertension, hyperlipidemia, depression, PE , diabetes, TIA, previous history of IV drug use. Patient had a nuclear medicine myocardial perfusion scan performed in general 2017 which showed ventriculomegaly with large fixed perfusion abnormality and no evidence of stress-induced reversible abnormalities, severe global hypokinesia with 14% ejection fraction. Patient denies any edema of the lower extremities. No fevers. He denies any abdominal pain. He reports some mild nausea, but no vomiting or diarrhea. Patient reports chronic shortness of breath. PFSH Past Medical History Hx Anticoagulant Therapy: Yes (COUMADIN) Arthritis: No Asthma: No Blood Disorders: No Anxiety: No Depression: Yes Heart Rhythm Problems: No Cancer: No Cardiac Catheterization: No Cardiovascular Problems: Yes (CHF) High Cholesterol: Yes Chemotherapy: No Chest Pain: Yes (ENDOCARDITITS) Congestive Heart Failure: Yes COPD: No Cerebrovascular Accident: Yes (MULTIPLE TIA) Coronary Artery Disease: Yes Diabetes: Yes (TYPE 2) Patient Takes Glucophage: Yes (METFORMIN) Diminished Hearing: No Endocrine: Yes Gastrointestinal Disorders: Yes GERD: No Glaucoma: No Genitourinary: No Headaches: No Hepatitis: No Hiatal Hernia: No Hypertension: Yes Immune Disorder: No Kidney Stones: No Musculoskeletal: Yes Neurologic: Yes Psychiatric: No Reproductive: No Respiratory: Yes (HOME O2) Migraines: No Myocardial Infarction: Yes (mother) Radiation Therapy: No Renal Failure: No Seizures: Yes (20 YEARS AGO W/ TIAS) Sickle Cell Disease: No Sleep Apnea: No Thyroid Disease: No Ulcer: No PNEUMOCCOCAL Vaccine (Year): 2007 Past Surgical History AICD: No Appendectomy: Yes Arteriovenous Shunt: No Body Medical Devices: TIERRA IN NECK Cardiac Surgery: No Cholecystectomy: Yes Coronary Artery Bypass Graft: No Ear Surgery: No Endocrine Surgery: No Eye Surgery: No Genitourinary Surgery: No Gynecologic Surgery: No Insulin Pump: No Joint Replacement: No Neurologic Surgery: No Oral Surgery: No Pacemaker: No Thoracic Surgery: Yes (COLLAPSED LUNG) Social History Alcohol Use: No Tobacco Use: No Substance Use: No (PT STATES SOBER 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) Allergies-Medications (Allergen,Severity, Reaction): Coded Allergies: Morphine (Verified Allergy, Severe, Itching, 10/30/16) *MDRO Multi-Drug Resistant Organism (Verified Adverse Reaction, Unknown, ) 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/16 Reported Meds & Prescriptions Reported Meds & Active Scripts Active Coumadin (Warfarin) 7.5 Mg Tab 7.5 Mg PO DAILY@16 Isosorbide Mononitrate ER (Isosorbide Mononitrate) 30 Mg Ranulfo 30 Mg PO DAILY@07 Furosemide 40 Mg Tab 40 Mg PO DAILY Lisinopril 5 Mg Tab 5 Mg PO DAILY Coreg (Carvedilol) 3.125 Mg Tab 3.125 Mg PO Q12HR Reported Aspirin 81 Mg Tabdr 81 Mg PO DAILY Metformin (Metformin HCl) 500 Mg Tab 500 Mg PO DAILY With a meal Review of Systems Except as stated in HPI: all other systems reviewed are Neg Physical Exam Narrative GENERAL: Well-nourished, well-developed male patient, afebrile. SKIN: Focused skin assessment warm/dry. HEAD: Normocephalic. Atraumatic. EYES: No scleral icterus. No injection or drainage. NECK: Supple, trachea midline. No JVD or lymphadenopathy. CARDIOVASCULAR: Regular rate and rhythm without murmurs, gallops, or rubs. Bilateral radial and pedal pulses 2+ RESPIRATORY: Breath sounds equal bilaterally. No accessory muscle use. Lungs sounds are clear to auscultation GASTROINTESTINAL: Abdomen soft, non-tender, nondistended. MUSCULOSKELETAL: No cyanosis, or edema. BACK: Nontender without obvious deformity. No CVA tenderness. Data Data Last Documented VS Vital Signs Date Time Temp Pulse Resp B/P Pulse Ox O2 Delivery O2 Flow Rate FiO2 11/21/16 14:15 111 18 113/72 96 Room Air 11/21/16 11:18 98.0 Orders Electrocardiogram (11/21/16 11:19) Basic Metabolic Panel (Bmp) (11/21/16 11:19) B-Type Natriuretic Peptide (11/21/16 11:19) Ckmb (Isoenzyme) Profile (11/21/16 11:19) Complete Blood Count With Diff (11/21/16 11:19) Magnesium (Mg) (11/21/16 11:19) Prothrombin Time / Inr (Pt) (11/21/16 11:19) Act Partial Throm Time (Ptt) (11/21/16 11:19) Troponin I (11/21/16 11:19) Chest, Single Ap (11/21/16 11:19) Ecg Monitoring (11/21/16 11:19) Bilateral Bp Monitoring (11/21/16 11:19) Iv Access Insert/Monitor (11/21/16 11:19) Oximetry (11/21/16 11:19) Oxygen Administration (11/21/16 11:19) Sodium Chloride 0.9% Flush (Ns Flush) (11/21/16 11:30) CKMB (11/21/16 11:24) CKMB% (11/21/16 11:24) Nitroglycerin Sl (Nitrostat Sl) (11/21/16 14:15) Labs Laboratory Tests Test 11/21/16 11:24 White Blood Count 6.9 TH/MM3 Red Blood Count 4.44 MIL/MM3 Hemoglobin 12.8 GM/DL Hematocrit 39.2 % Mean Corpuscular Volume 88.4 FL Mean Corpuscular Hemoglobin 28.8 PG Mean Corpuscular Hemoglobin 32.6 % Concent Red Cell Distribution Width 17.9 % Platelet Count 242 TH/MM3 Mean Platelet Volume 8.7 FL Neutrophils (%) (Auto) 75.2 % Lymphocytes (%) (Auto) 16.9 % Monocytes (%) (Auto) 6.1 % Eosinophils (%) (Auto) 1.3 % Basophils (%) (Auto) 0.5 % Neutrophils # (Auto) 5.2 TH/MM3 Lymphocytes # (Auto) 1.2 TH/MM3 Monocytes # (Auto) 0.4 TH/MM3 Eosinophils # (Auto) 0.1 TH/MM3 Basophils # (Auto) 0.0 TH/MM3 CBC Comment DIFF FINAL Differential Comment Prothrombin Time 121.1 SEC Prothromb Time International 9.9 RATIO Ratio Activated Partial 48.0 SEC Thromboplast Time Sodium Level 136 MEQ/L Potassium Level 4.9 MEQ/L Chloride Level 106 MEQ/L Carbon Dioxide Level 23.2 MEQ/L Anion Gap 7 MEQ/L Blood Urea Nitrogen 21 MG/DL Creatinine 1.06 MG/DL Estimat Glomerular Filtration 69 ML/MIN Rate Random Glucose 250 MG/DL Calcium Level 9.2 MG/DL Magnesium Level 1.9 MG/DL Total Creatine Kinase 112 U/L Creatine Kinase MB 3.6 NG/ML Troponin I 0.03 NG/ML B-Type Natriuretic Peptide 890 PG/ML MDM Medical Decision Making Medical Screen Exam Complete: Yes Emergency Medical Condition: Yes Medical Record Reviewed: Yes Interpretation(s) chest x-ray - CONCLUSION: 1. Improving interstitial edema in both lung bases characteristic of resolving edema. 2. Persistent blunting of the right costophrenic angle which may be chronic. Differential Diagnosis ACS versus CHF versus pneumonia versus PE Narrative Course 71-year-old male presents to the emergency department for evaluation of midsternal chest pain that radiates occasionally to the right shoulder that started last 11 PM. He rates as a pressure. He states the pain was relieved after receiving nitroglycerin 2. Patient has history of PE and is currently on Coumadin. He last had a CT pulmonary angiogram done on October 08, 2016 showed no pulmonary embolus. Patient states his pain is consistent with previous CHF exacerbations, but states this one was worse. He does have a LifeVest but is not currently established with a primary care physician. Patient had a negative treadmill stress test in July 2015 and had a nuclear medicine myocardial perfusion scan on December 23, 2016 which revealed EF of 14% and global hypokinesia, but no reversible abnormalities noted. EKG shows sinus tachycardia , heart rate 105, no acute ST changes. CBC, BMP, magnesium, CK, troponin, BNP, PTT, PTT/INR are ordered and pending. Chest x-ray is ordered and pending. CBC shows no acute abnormality. CK is 112. Troponin is 0.03. BMP shows elevated glucose of 250. BNP is elevated at 890. PT is 121.1, INR 9.9, PTT 48.0. Chest x-ray shows improving interstitial edema in both lung bases characteristic of resolving edema; 2. Persistent blunting of the right costophrenic angle which may be chronic.. Patient's INR is 9 and with negative CTPA last month, I believe PE is unlikely. I spoke to Dr. Henry, head pumper oracle application architect, who recommends 23 observation admission. [facility] is paged for admission. Dr. Restrepo accepted admission. Diagnosis Primary Impression: Chest pain Qualified Code: R07.9 - Chest pain, unspecified type Additional Impressions: Elevated INR CHF (congestive heart failure) Qualified Code: I50.9 - Acute on chronic congestive heart failure, unspecified congestive heart failure type Admitting Information Admitting Physician Requests: Observation Reyna Buckley November 21, 2016 11:52
[2016-11-21 11:53] LABS: INTERNATIONAL NORMALIZED RATIO 9.9 RATIO; PROTHROMBIN TIME - PATIENT 121.1 SEC (9.8-11.6)
[2016-11-21 11:54] LABS: BLOOD UREA NITROGEN 21 MG/DL (7-18); CHLORIDE 106 MEQ/L (98-107); CREATINE KINASE 112 U/L (39-308); GLOMERULAR FILTRATION RATE 69 ML/MIN (>89); MAGNESIUM 1.9 MG/DL (1.5-2.5); SODIUM (NA) 136 MEQ/L (136-145)
[2016-11-21 11:57] LABS: POTASSIUM 4.9 MEQ/L (3.5-5.1)
[2016-11-21 12:09] LABS: CKMB 3.6 NG/ML (0.5-3.6)
--- NOTE | 2016-11-21 13:05 | RADRPT ---
EXAM DATE/TIME: 11/21/2016 11:19 [facility] COMPARISON: CHEST SINGLE AP, October 30, 2016, 8:30. INDICATIONS : Chest pain, short of breath. MEDICAL HISTORY : Congestive heart failure. SURGICAL HISTORY : patient wears life vest that has a pacemaker and took off for xray. ENCOUNTER: Initial ACUITY: 1 day PAIN SCORE: 7/10 LOCATION: Bilateral chest FINDINGS: A single view of the chest demonstrates slight interval improvement in the interstitial prominence id entified in both lung bases possibly representing resolving edema. Persistent blunting of the right c ostophrenic angle may be chronic based on prior reports/images. Heart size is borderline prominent. T here is a dextroscoliosis of the dorsal spine with associated degenerative changes. Anterior fixation of the mid cervical spine. Osseous structures are otherwise intact. CONCLUSION: 1. Improving interstitial edema in both lung bases characteristic of resolving edema. 2. Persistent blunting of the right costophrenic angle which may be chronic. Nikos Kaur MD on November 21, 2016 at 13:02 Board Certified Radiologist. This report was verified electronically.
[2016-11-21 13:13] LABS: ANION GAP 7 MEQ/L (5-15); BICARBONATE 23.2 MEQ/L (21.0-32.0)
[2016-11-21] MEDS ORDERED: NITROGLYCERIN 0.4 MG SL 25 TABS/BTL SL ONE (14:15)
[2016-11-21] MEDS ORDERED: ONDANSETRON HCL 4 MG/2 ML VIAL IVP PRN (14:45)
[2016-11-21] MEDS ORDERED: NALOXONE HCL 0.4 MG/ML AMP IV PRN (14:45)
[2016-11-21] MEDS ORDERED: NITROGLYCERIN 0.3 MG SL 100 TABS/BTL SL PRN (14:45)
[2016-11-21] MEDS ORDERED: MAGNESIUM HYDROXIDE SUSP 30 ML CUP PO PRN (14:45)
[2016-11-21] MEDS ORDERED: SODIUM CHLORIDE 0.9% FLUSH 10 ML FLUSH IV FLUSH PRN (14:45)
[2016-11-21] MEDS ORDERED: PHYTONADIONE 5 MG TAB PO ONE (15:00)
--- NOTE | 2016-11-21 15:36 | PD.CONS ---
HPI Service Cardiology Consult Requested By ER Reason for Consult SOB Primary Care Physician Kwesi Joseph MD History of Present Illness 71 y/o M with known ischemic cardiomyopathy with recent MPI with fixed defect no reversible ischemia, HTN, PE, HLD DM, TIA, antiphospholipid syndrome, noncompliant and IVDA that presents to emergency department for evaluation of midsternal chest pain of 1 day duration. Chest pain is localized to the midsternal region and radiates to the right shoulder. Not relieved with Nitroglycerin. He denies any edema of the lower extremities. No fevers. He denies any abdominal pain. He reports some mild nausea, but no vomiting or diarrhea. He relays chronic shortness of breath. Review of Systems Consitutional: DENIES: Fatigue, Fever, Chills, Weight gain, Weight loss Eyes: DENIES: Amaurosis Fugax, Change in vision HEENT: DENIES: Lightheadedness, Change in hearing Respiratory: COMPLAINS OF: Shortness of breath Cardiovascular: COMPLAINS OF: Chest pain, DENIES: See HPI, Palpitations, Syncope, Tachycardia Gastrointestinal: DENIES: Nausea, Vomiting, Change in bowel habits, Reflux, Bloody stools, Melena Genitourinary: DENIES: Urinary incontinence, Difficulty voiding Integumentary: DENIES: Rash Neurologic: DENIES: Tingling or numbness, Memory problems, Poor Balance, Stroke symptoms Musculoskeletal: DENIES: Joint pain, Muscle pain, Limited range of motion, Back pain Psychiatric: DENIES: Anxiety, Depression, Sleep disturbances Hematologic: DENIES: Bruising tendencies, Bleeding tendencies Endocrine: DENIES: Weight gain, Weight loss, Thyroid disease Past Family Social History Allergies: Coded Allergies: Morphine (Verified Allergy, Severe, Itching, 10/30/16) *MDRO Multi-Drug Resistant Organism (Verified Adverse Reaction, Unknown, ) 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/16 Past Medical History Ischemic cardiomyopathy HTN PE, HLD DM, TIA, antiphospholipid syndrome IVDA Reported Medications Reported Meds & Active Scripts Active Coumadin (Warfarin) 7.5 Mg Tab 7.5 Mg PO DAILY@16 Isosorbide Mononitrate ER (Isosorbide Mononitrate) 30 Mg Ranulfo 30 Mg PO DAILY@07 Furosemide 40 Mg Tab 40 Mg PO DAILY Lisinopril 5 Mg Tab 5 Mg PO DAILY Coreg (Carvedilol) 3.125 Mg Tab 3.125 Mg PO Q12HR Reported Aspirin 81 Mg Tabdr 81 Mg PO DAILY Metformin (Metformin HCl) 500 Mg Tab 500 Mg PO DAILY With a meal Active Ordered Medications Current Medications Medications (Trade) Dose Ordered Sig/Keiko Route Start Time Stop Time Status Last Admin (NS Flush) 2 ml UNSCH PRN IV FLUSH 11/21/16 14:45 (NS Flush) 2 ml BID IV FLUSH 11/21/16 21:00 (Zofran Inj) 4 mg Q6H PRN IVP 11/21/16 14:45 (Milk Of Magnesia Liq) 30 ml Q12H PRN PO 11/21/16 14:45 (Narcan Inj) 0.4 mg UNSCH PRN IV 11/21/16 14:45 (Ecotrin Ec) 81 mg DAILY PO 11/22/16 09:00 (Coreg) 3.125 mg Q12HR PO 11/21/16 14:45 UNV (Lasix) 40 mg DAILY PO 11/22/16 09:00 (Imdur) 30 mg DAILY@07 PO 11/22/16 07:00 (Prinivil) 5 mg DAILY PO 11/22/16 09:00 (Nitrostat Sl) 0.3 mg Q5M PRN SL 11/21/16 14:45 Physical Exam Vital Signs Vital Signs Date Time Temp Pulse Resp B/P Pulse Ox O2 Delivery O2 Flow Rate FiO2 11/21/16 14:15 111 18 113/72 96 Room Air 11/21/16 13:11 100 16 124/85 96 Room Air 11/21/16 11:20 96 Room Air 11/21/16 11:20 96 Room Air 11/21/16 11:18 98.0 102 20 127/93 96 Room Air 11/21/16 11:12 108 20 96 Room Air Laboratory Laboratory Tests Test 11/21/16 11:24 White Blood Count 6.9 Red Blood Count 4.44 Hemoglobin 12.8 Hematocrit 39.2 Mean Corpuscular Volume 88.4 Mean Corpuscular Hemoglobin 28.8 Mean Corpuscular Hemoglobin 32.6 Concent Red Cell Distribution Width 17.9 Platelet Count 242 Mean Platelet Volume 8.7 Neutrophils (%) (Auto) 75.2 Lymphocytes (%) (Auto) 16.9 Monocytes (%) (Auto) 6.1 Eosinophils (%) (Auto) 1.3 Basophils (%) (Auto) 0.5 Neutrophils # (Auto) 5.2 Lymphocytes # (Auto) 1.2 Monocytes # (Auto) 0.4 Eosinophils # (Auto) 0.1 Basophils # (Auto) 0.0 CBC Comment DIFF FINAL Differential Comment Prothrombin Time 121.1 Prothromb Time International 9.9 Ratio Activated Partial 48.0 Thromboplast Time Sodium Level 136 Potassium Level 4.9 Chloride Level 106 Carbon Dioxide Level 23.2 Anion Gap 7 Blood Urea Nitrogen 21 Creatinine 1.06 Estimat Glomerular Filtration 69 Rate Random Glucose 250 Calcium Level 9.2 Magnesium Level 1.9 Total Creatine Kinase 112 Creatine Kinase MB 3.6 Troponin I 0.03 B-Type Natriuretic Peptide 890 Result Diagram: 11/21/16 1124 11/21/16 1124 Imaging Last Impressions Chest X-Ray 11/21/16 1119 Signed Impressions: Service Date/Time: Monday, November 21, 2016 11:19 - CONCLUSION: 1. Improving interstitial edema in both lung bases characteristic of resolving edema. 2. Persistent blunting of the right costophrenic angle which may be chronic. Nikos Kaur MD Assessment and Plan Problem List: (1) Chest pain Assessment and Plan: Angina type chest pain. Recommendations: 1. Admit to telemetry 2. Cycle cardiac markers 3. Hold Coumadin 4. Cont ASA, Imdur, BB, ACEi and statins 5. Start Ranexa 500mg PO BID Further therapy to be determine (2) Dilated cardiomyopathy (3) Dyspnea (4) Dyslipidemia (5) Elevated INR (6) HTN (hypertension) (7) DM2 (diabetes mellitus, type 2) (8) DM (diabetes mellitus) Problem Qualifiers (1) Chest pain: Qualified Code: R07.9 - Chest pain, unspecified type Juarez Ragland MD November 21, 2016 15:36
--- NOTE | 2016-11-21 17:04 | HHI.HP ---
HPI Service [facility] Primary Care Physician Kwesi Joseph MD Admission Diagnosis chest pain, elevated INR, CHF Diagnoses: Chief Complaint: chest pain Travel History International Travel<30 Days: No Contact w/Intl Traveler <30 Da: No Traveled to Known Affected Are: No History of Present Illness Written by Krystal Arteaga, acting as scribe for Dr. Restrepo on 11/21/16 at 17: 02. 71-year-old male with a history of CHF (EF 15%) with LifeVest, on home O2, Pulmonary Embolism on Coumadin, HTN, HLD, DM, anxiety, depression, and prior IVDU, presents with a 1 day history of chest pain. The patient reports last night he went to bed as usual around 1011 PM, then he woke up all of a sudden at 12 AM with severe chest pain. He locates the chest into the right lower anterior chest with radiation into the right shoulder, described as constant sharp 10/10 pain, associated with severe shortness of breath, and nausea but no vomiting. The pain is worsened with deep inspiration. The pain persisted throughout the night and continued to get worse, therefore he called 911. En route, he was given nitroglycerin 2 which eliminated the pain. However after his arrival to the ER, the chest pain returned, he received additional dose of nitroglycerin which did not help the second time. The patient does admit to a 1 -day history of cough productive of clearyellow phlegm. He denies fevers or chills. He denies any abdominal pain, constipation, or diarrhea. Denies any lightheadedness/dizziness. Since his arrival, INR noted to be elevated at 9.9. He denies any bleeding, melena, hematochezia. The patient states that he has only seen his PCP Dr. Joseph since his discharge last time, and nobody has been following his INR. 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 The patient has no other medical complaints at this time. Review of Systems Except as stated in HPI: all other systems reviewed are Neg Past Family Social History Past Medical History CHF EF 15% with LifeVest Pulmonary Embolism Anticoagulated with Coumadin Hypertension Hyperlipidemia Diabetes Mellitus Depression Anxiety TIA Past Surgical History Appendectomy Cholecystectomy Cervical Spine Surgery Reported Medications Coumadin (Warfarin) 7.5 Mg Tab 7.5 Mg PO DAILY@16 Isosorbide Mononitrate ER (Isosorbide Mononitrate) 30 Mg Ranulfo 30 Mg PO DAILY@07 Furosemide 40 Mg Tab 40 Mg PO DAILY Lisinopril 5 Mg Tab 5 Mg PO DAILY Coreg (Carvedilol) 3.125 Mg Tab 3.125 Mg PO Q12HR Reported Aspirin 81 Mg Tabdr 81 Mg PO DAILY Metformin (Metformin HCl) 500 Mg Tab 500 Mg PO DAILY With a meal Allergies: Coded Allergies: Morphine (Verified Allergy, Severe, Itching, 10/30/16) *MDRO Multi-Drug Resistant Organism (Verified Adverse Reaction, Unknown, ) 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 Active Ordered Medications Current Medications Medications (Trade) Dose Ordered Sig/Keiko Route Start Time Stop Time Status Last Admin (NS Flush) 2 ml UNSCH PRN IV FLUSH 11/21/16 14:45 (NS Flush) 2 ml BID IV FLUSH 11/21/16 21:00 (Zofran Inj) 4 mg Q6H PRN IVP 11/21/16 14:45 (Milk Of Magnesia Liq) 30 ml Q12H PRN PO 11/21/16 14:45 (Narcan Inj) 0.4 mg UNSCH PRN IV 11/21/16 14:45 (Ecotrin Ec) 81 mg DAILY PO 11/22/16 09:00 (Coreg) 3.125 mg Q12HR PO 11/21/16 14:45 UNV (Lasix) 40 mg DAILY PO 11/22/16 09:00 (Imdur) 30 mg DAILY@07 PO 11/22/16 07:00 (Prinivil) 5 mg DAILY PO 11/22/16 09:00 (Nitrostat Sl) 0.3 mg Q5M PRN SL 11/21/16 14:45 Family History Father with heart disease/OR, liver cancer, Mother with CHF Sister with diabetes Social History Denies tobacco use, quit 20 years ago Denies alcohol use, quit 20 years ago Prior IVDU, last use 8 months ago Smokes marijuana occasionally Physical Exam Vital Signs Vital Signs Date Time Temp Pulse Resp B/P Pulse Ox O2 Delivery O2 Flow Rate FiO2 11/21/16 16:21 98 18 138/87 99 Room Air 11/21/16 14:15 111 18 113/72 96 Room Air 11/21/16 13:11 100 16 124/85 96 Room Air 11/21/16 11:20 96 Room Air 11/21/16 11:20 96 Room Air 11/21/16 11:18 98.0 102 20 127/93 96 Room Air 11/21/16 11:12 108 20 96 Room Air Physical Exam GENERAL: Well-nourished, well-developed male patient in NAD. SKIN: Warm and dry. No rash. HEAD: Normocephalic. Atraumatic. EYES: Pupils equal and round. No scleral icterus. No injection or drainage. ENT: No nasal bleeding or discharge. Mucous membranes pink and moist. NECK: Supple. Trachea midline. CARDIOVASCULAR: Regular rate and rhythm. S1, S2 noted. No murmur appreciated. RESPIRATORY: No accessory muscle use. Clear to auscultation. Breath sounds equal bilaterally. GASTROINTESTINAL: Abdomen soft, non-tender, nondistended. Normoactive bowel sounds x4. MUSCULOSKELETAL: No obvious deformities. Extremities without clubbing, cyanosis , or edema. NEUROLOGICAL: Awake and alert. No obvious cranial nerve deficits. Motor grossly within normal limits. Normal speech. PSYCHIATRIC: Appropriate mood and affect; insight and judgment normal. Laboratory Laboratory Tests Test 11/21/16 11:24 White Blood Count 6.9 Red Blood Count 4.44 Hemoglobin 12.8 Hematocrit 39.2 Mean Corpuscular Volume 88.4 Mean Corpuscular Hemoglobin 28.8 Mean Corpuscular Hemoglobin 32.6 Concent Red Cell Distribution Width 17.9 Platelet Count 242 Mean Platelet Volume 8.7 Neutrophils (%) (Auto) 75.2 Lymphocytes (%) (Auto) 16.9 Monocytes (%) (Auto) 6.1 Eosinophils (%) (Auto) 1.3 Basophils (%) (Auto) 0.5 Neutrophils # (Auto) 5.2 Lymphocytes # (Auto) 1.2 Monocytes # (Auto) 0.4 Eosinophils # (Auto) 0.1 Basophils # (Auto) 0.0 CBC Comment DIFF FINAL Differential Comment Prothrombin Time 121.1 Prothromb Time International 9.9 Ratio Activated Partial 48.0 Thromboplast Time Sodium Level 136 Potassium Level 4.9 Chloride Level 106 Carbon Dioxide Level 23.2 Anion Gap 7 Blood Urea Nitrogen 21 Creatinine 1.06 Estimat Glomerular Filtration 69 Rate Random Glucose 250 Calcium Level 9.2 Magnesium Level 1.9 Total Creatine Kinase 112 Creatine Kinase MB 3.6 Troponin I 0.03 B-Type Natriuretic Peptide 890 Result Diagram: 11/21/16 1124 11/21/16 1124 Imaging Last Impressions Chest X-Ray 11/21/16 1119 Signed Impressions: Service Date/Time: Monday, November 21, 2016 11:19 - CONCLUSION: 1. Improving interstitial edema in both lung bases characteristic of resolving edema. 2. Persistent blunting of the right costophrenic angle which may be chronic. Nikos Kaur MD Assessment and Plan Problem List: (1) Chest pain ICD Code: R07.9 Status: Acute (2) Elevated INR ICD Code: R79.1 Status: Acute (3) Acute exacerbation of CHF (congestive heart failure) ICD Code: I50.9 Status: Acute (4) Pulmonary embolism ICD Code: I26.99 Status: Chronic (5) DM (diabetes mellitus) ICD Code: E11.9 Status: Chronic (6) HTN (hypertension) ICD Code: I10 Status: Chronic (7) Hyperlipidemia ICD Code: E78.5 Status: Chronic Assessment and Plan 71-year-old male with a history of CHF (EF 15%) with LifeVest, on home O2, Pulmonary Embolism on Coumadin, HTN, HLD, DM, depression, and prior IVDU, presents with a 1 day history of chest pain. Chest Pain: unclear etiology, need to rule out ACS as patient is high risk. Doubt recurrence of PE with supratherapeutic INR 9.9. Initial troponin 0.03, EKG without acute ischemic changes. Continue to trend serial cardiac enzymes/ EKGs. S/p aspirin and nitro en route, now chest pain improved. Continue aspirin , JENNIFER, BB, Imdur. Nitro prn. Start statin, check lipid panel in am. O2 as needed. Monitor on telemetry. Consult cardiology. Acute on Chronic Systolic CHF Exacerbation: BNP elevated at 890. CXR images reviewed, shows improving interstitial edema in bilateral lungs. Echo 11/01/16 showed EF 15% with diffuse hypokinesis. Continue patient's Lifevest. Continue aspirin, Coreg, Lisinopril. Continue Lasix 40mg daily. Cardiology consulted as above. Pulmonary Embolism with Supratherapeutic INR: INR 9.9. Give Vitamin K 5mg x1 now. Hold patient's Coumadin. Monitor daily INR. O2 as needed. Diabetes Mellitus: chronic, hold patient's Metformin. Monitor Accu-cheks and cover with SSI. HgbA1c 8.6 in . Hypertension: chronic, stable, continue patient's coreg, lisinopril. Monitor BP. Hyperlipidemia: chronic, check lipid panel and start on statin as above. DVT Prophylaxis: on Coumadin with Supratherapeutic INR Discharge Planning: If ACS is ruled out, cardiology cleared, and INR improves more quickly than expected, suspect possible discharge tomorrow or the next day. Code Status Full Code Attending Statement The exam, history, and the medical decision-making described in the above note were completed with the assistance of the mid-level provider. I reviewed and agree with the findings presented. I attest that I had a [id number] encounter with the patient on the same day, and personally performed and documented my assessment and findings in the medical record.patient seen and examined on date of service. Patient seen on medical floor. Patient reports pleuritic right-sided chest pain. Unfortunately, he did not follow-up with cardiology. Lungs are clear. No bleeding. Continue to monitor INR. Appreciate cardiology assistance for chest pain Problem Qualifiers (1) Chest pain: Qualified Code: R07.9 - Chest pain, unspecified type Krystal Arteaga PA-C November 21, 2016 17:04 Sadiq Restrepo MD November 22, 2016 15:37
[2016-11-21] MEDS ORDERED: DEXTROSE 50% IN WATER 50 ML VIAL(D50) IV PRN (19:00)
[2016-11-21] MEDS ORDERED: ACETAMINOPHEN 325 MG TAB PO PRN (19:00)
[2016-11-21] MEDS ORDERED: GLUCAGON 1 MG/ML VIAL OTHER PRN (19:00)
[2016-11-21] MEDS ORDERED: CALCIUM CARBONATE 500 MG CHEWABLE TAB CHEW PRN (19:00)
[2016-11-21] MEDS ORDERED: CARVEDILOL 3.125 MG TAB PO SCH (21:00)
[2016-11-21] MEDS: PRAVASTATIN SOD 40 MG TAB PO SCH (21:46)
[2016-11-21] MEDS: INSULIN ASPART SUPPLEMENTAL SCALE SQ SCH (21:46)
[2016-11-21] MEDS: SODIUM CHLORIDE 0.9% FLUSH 10 ML FLUSH IV FLUSH SCH (21:48)
[2016-11-21] MEDS: LORazepam 0.5 MG TAB PO PRN (22:54)
[2016-11-22] VITALS (10 sets, daily range): BP systolic 104–135; BP diastolic 61–86; PULSE 91–99; RESP 18–24; TEMP 97.1–98.8; O2SAT 92–98
[2016-11-22 02:07] LABS: AUTOMATED NEUTROPHIL # 4.5 TH/MM3 (1.8-7.7); BASOPHIL # 0.1 TH/MM3 (0-0.2); BASOPHIL % 0.7 % (0.0-2.0); EOSINOPHIL # 0.1 TH/MM3 (0-0.4); EOSINOPHIL % 1.2 % (0.0-4.0); HEMATOCRIT 39.7 % (39.0-51.0); HEMO FLAGS DIFF FINAL; LYMPH % 28.9 % (9.0-44.0); LYMPHOCYTE # 2.1 TH/MM3 (1.0-4.8); MEAN CELL VOLUME 88.4 FL (80.0-100.0); MEAN CORPUSCULAR HGB CONC 32.8 % (32.0-36.0); MONO % 6.3 % (0.0-8.0); NEUT % 62.9 % (16.0-70.0); PLATELET COUNT 232 TH/MM3 (150-450); RED BLOOD COUNT 4.48 MIL/MM3 (4.50-5.90); WHITE BLOOD COUNT 7.1 TH/MM3 (4.0-11.0)
[2016-11-22 02:22] LABS: PROTHROMBIN TIME - PATIENT 75.5 SEC (9.8-11.6)
[2016-11-22 02:31] LABS: INTERNATIONAL NORMALIZED RATIO 6.3 RATIO
[2016-11-22 02:33] LABS: ALT (GPT) 22 U/L (12-78); ANION GAP 10 MEQ/L (5-15); AST (GOT) 28 U/L (15-37); BICARBONATE 21.1 MEQ/L (21.0-32.0); BLOOD UREA NITROGEN 16 MG/DL (7-18); CHLORIDE 107 MEQ/L (98-107); GLOMERULAR FILTRATION RATE 86 ML/MIN (>89); POTASSIUM 3.9 MEQ/L (3.5-5.1); SODIUM (NA) 138 MEQ/L (136-145)
[2016-11-22 02:39] LABS: ALKALINE PHOSPHATASE 107 U/L (45-117); HDL CHOLESTEROL 36.9 MG/DL (40.0-60.0); LDL CHOLESTEROL 83 MG/DL (0-99)
[2016-11-22] MEDS: ISOSORBIDE MONONITRATE 30 MG TAB PO SCH (06:04)
[2016-11-22] MEDS: INSULIN ASPART SUPPLEMENTAL SCALE SQ SCH ×4 (06:04→20:49)
[2016-11-22] MEDS: SODIUM CHLORIDE 0.9% FLUSH 10 ML FLUSH IV FLUSH SCH ×2 (09:00→20:49)
--- NOTE | 2016-11-22 09:35 | PD.CARD.PN ---
Subjective Subjective Remarks " I cant sit still, I have a lot of anxiety, I cant sleep, I need Ativan" Objective Medications Current Medications Medications (Trade) Dose Ordered Sig/Keiko Route Start Time Stop Time Status Last Admin (NS Flush) 2 ml UNSCH PRN IV FLUSH 11/21/16 14:45 (NS Flush) 2 ml BID IV FLUSH 11/21/16 21:00 11/21/16 21:48 (Zofran Inj) 4 mg Q6H PRN IVP 11/21/16 14:45 (Milk Of Magnesia Liq) 30 ml Q12H PRN PO 11/21/16 14:45 (Narcan Inj) 0.4 mg UNSCH PRN IV 11/21/16 14:45 (Ecotrin Ec) 81 mg DAILY PO 11/22/16 09:00 (Coreg) 3.125 mg Q12HR PO 11/21/16 21:00 11/21/16 21:48 (Lasix) 40 mg DAILY PO 11/22/16 09:00 (Imdur) 30 mg DAILY@07 PO 11/22/16 07:00 11/22/16 06:04 (Prinivil) 5 mg DAILY PO 11/22/16 09:00 (Nitrostat Sl) 0.3 mg Q5M PRN SL 11/21/16 14:45 (Pravachol) 40 mg HS PO 11/21/16 21:00 11/21/16 21:46 (Tylenol) 650 mg Q4H PRN PO 11/21/16 19:00 (Tums Chew) 1,000 mg TID PRN CHEW 11/21/16 19:00 11/21/16 21:47 (D50w (Vial) Inj) 50 ml UNSCH PRN IV 11/21/16 19:00 (Glucagon Inj) 1 mg UNSCH PRN OTHER 11/21/16 19:00 (Ativan) 0.5 mg Q8H PRN PO 11/21/16 23:00 11/21/16 22:54 Vital Signs / I&O Vital Signs Date Time Temp Pulse Resp B/P Pulse Ox O2 Delivery O2 Flow Rate FiO2 11/22/16 04:42 97.8 98 22 135/86 98 11/22/16 00:00 98.2 96 22 123/84 98 11/21/16 23:20 14 5/19/17 22:50 98.6 103 22 132/88 100 11/21/16 20:45 Nasal Cannula 2.00 11/21/16 20:00 106 11/21/16 18:48 Room Air 11/21/16 18:13 112 11/21/16 18:10 97.4 105 18 140/90 96 11/21/16 16:21 98 18 138/87 99 Room Air 11/21/16 14:15 111 18 113/72 96 Room Air 11/21/16 13:11 100 16 124/85 96 Room Air 11/21/16 11:20 96 Room Air 11/21/16 11:20 96 Room Air 11/21/16 11:18 98.0 102 20 127/93 96 Room Air 11/21/16 11:12 108 20 96 Room Air I/O 11/21/16 11/21/16 11/21/16 11/22/16 11/22/16 11/22/16 07:00 15:00 23:00 07:00 15:00 23:00 Intake Total 1100 ml 120 ml Output Total 1100 ml 400 ml Balance 0 ml -280 ml Intake Oral 1100 ml 120 ml Output Urine Total 1100 ml 400 ml # Bowel Movements 1 Physical Exam GENERAL: Well-nourished, well-developed patient. SKIN: Warm and dry. HEAD: Normocephalic. EYES: No scleral icterus. No injection or drainage. NECK: Supple, trachea midline. No JVD or lymphadenopathy. CARDIOVASCULAR: Regular rate and rhythm without murmurs, gallops, or rubs. RESPIRATORY: Breath sounds equal bilaterally. No accessory muscle use. GASTROINTESTINAL: Abdomen soft, non-tender, nondistended. EXTREMITIES: No cyanosis, or edema. NEUROLOGICAL: Awake, alert, and oriented x 3. Non-focal. Laboratory Laboratory Tests Test 11/21/16 11/21/16 11/22/16 11:24 19:20 01:32 White Blood Count 6.9 TH/MM3 7.1 TH/MM3 Red Blood Count 4.44 MIL/MM3 4.48 MIL/MM3 Hemoglobin 12.8 GM/DL 13.0 GM/DL Hematocrit 39.2 % 39.7 % Mean Corpuscular Volume 88.4 FL 88.4 FL Mean Corpuscular Hemoglobin 28.8 PG 29.0 PG Mean Corpuscular Hemoglobin 32.6 % 32.8 % Concent Red Cell Distribution Width 17.9 % 18.0 % Platelet Count 242 TH/MM3 232 TH/MM3 Mean Platelet Volume 8.7 FL 8.5 FL Neutrophils (%) (Auto) 75.2 % 62.9 % Lymphocytes (%) (Auto) 16.9 % 28.9 % Monocytes (%) (Auto) 6.1 % 6.3 % Eosinophils (%) (Auto) 1.3 % 1.2 % Basophils (%) (Auto) 0.5 % 0.7 % Neutrophils # (Auto) 5.2 TH/MM3 4.5 TH/MM3 Lymphocytes # (Auto) 1.2 TH/MM3 2.1 TH/MM3 Monocytes # (Auto) 0.4 TH/MM3 0.4 TH/MM3 Eosinophils # (Auto) 0.1 TH/MM3 0.1 TH/MM3 Basophils # (Auto) 0.0 TH/MM3 0.1 TH/MM3 CBC Comment DIFF FINAL DIFF FINAL Differential Comment Prothrombin Time 121.1 SEC 75.5 SEC Prothromb Time International 9.9 RATIO 6.3 RATIO Ratio Activated Partial 48.0 SEC Thromboplast Time Sodium Level 136 MEQ/L 138 MEQ/L Potassium Level 4.9 MEQ/L 3.9 MEQ/L Chloride Level 106 MEQ/L 107 MEQ/L Carbon Dioxide Level 23.2 MEQ/L 21.1 MEQ/L Anion Gap 7 MEQ/L 10 MEQ/L Blood Urea Nitrogen 21 MG/DL 16 MG/DL Creatinine 1.06 MG/DL 0.88 MG/DL Estimat Glomerular Filtration 69 ML/MIN 86 ML/MIN Rate Random Glucose 250 MG/DL 110 MG/DL Calcium Level 9.2 MG/DL 9.9 MG/DL Magnesium Level 1.9 MG/DL Total Creatine Kinase 112 U/L Creatine Kinase MB 3.6 NG/ML Troponin I 0.03 NG/ML 0.02 NG/ML 0.04 NG/ML B-Type Natriuretic Peptide 890 PG/ML Total Bilirubin 1.0 MG/DL Aspartate Amino Transf 28 U/L (AST/SGOT) Alanine Aminotransferase 22 U/L (ALT/SGPT) Alkaline Phosphatase 107 U/L Total Protein 7.1 GM/DL Albumin 3.2 GM/DL Triglycerides Level 98 MG/DL Cholesterol Level 139 MG/DL LDL Cholesterol 83 MG/DL HDL Cholesterol 36.9 MG/DL Cholesterol/HDL Ratio 3.76 RATIO Imaging Last Impressions Chest X-Ray 11/21/16 1119 Signed Impressions: Service Date/Time: Monday, November 21, 2016 11:19 - CONCLUSION: 1. Improving interstitial edema in both lung bases characteristic of resolving edema. 2. Persistent blunting of the right costophrenic angle which may be chronic. Nikos Kaur MD Assessment and Plan Problem List: (1) Chest pain Assessment and Plan: Known ischemic cardiomyopathy. Fixed defect with no reversible ischemia on recent stress test. Reports feeling extremely anxious. Cardiac markers negative x3. Recommendations: 1. Cont aggressive medical management for CAD 2. Increase Coreg to 6.25mg PO BID 3. Start Ranexa 500mg PO BID (2) Dilated cardiomyopathy (3) Dyspnea (4) Dyslipidemia (5) Elevated INR (6) HTN (hypertension) (7) DM2 (diabetes mellitus, type 2) (8) DM (diabetes mellitus) Problem Qualifiers (1) Chest pain: Qualified Code: R07.9 - Chest pain, unspecified type Juarez Ragland MD November 22, 2016 09:35
[2016-11-22] MEDS: LISINOPRIL 5 MG TAB PO SCH (09:57)
[2016-11-22] MEDS: FUROSEMIDE 40 MG TAB PO SCH (09:57)
[2016-11-22] MEDS: ASPIRIN EC 81 MG TABEC PO SCH (09:57)
--- NOTE | 2016-11-22 11:59 | HHI.PR ---
Subjective Remarks Follow-up cardiomyopathy. Still having intermittent right subcostal stabbing pain worse with exertion associated with fatigue. No nausea. Discussed with RN Objective Vitals Vital Signs Date Time Temp Pulse Resp B/P Pulse Ox O2 Delivery O2 Flow Rate FiO2 11/22/16 08:00 98.7 95 22 104/61 95 11/22/16 08:00 95 11/22/16 04:42 97.8 98 22 135/86 98 11/22/16 00:00 98.2 96 22 123/84 98 11/21/16 23:20 14 11/21/16 22:50 98.6 103 22 132/88 100 11/21/16 20:45 Nasal Cannula 2.00 11/21/16 20:00 106 11/21/16 18:48 Room Air 11/21/16 18:13 112 11/21/16 18:10 97.4 105 18 140/90 96 11/21/16 16:21 98 18 138/87 99 Room Air 11/21/16 14:15 111 18 113/72 96 Room Air 11/21/16 13:11 100 16 124/85 96 Room Air I/O 11/21/16 11/21/16 11/21/16 11/22/16 11/22/16 11/22/16 07:00 15:00 23:00 07:00 15:00 23:00 Intake Total 1100 ml 120 ml Output Total 1100 ml 400 ml Balance 0 ml -280 ml Intake Oral 1100 ml 120 ml Output Urine Total 1100 ml 400 ml # Bowel Movements 1 Result Diagram: 11/22/16 0132 11/22/16 0132 Imaging Last Impressions Chest X-Ray 11/21/16 1119 Signed Impressions: Service Date/Time: Monday, November 21, 2016 11:19 - CONCLUSION: 1. Improving interstitial edema in both lung bases characteristic of resolving edema. 2. Persistent blunting of the right costophrenic angle which may be chronic. Nikos Kaur MD Objective Remarks GENERAL: Well-nourished, well-developed male patient in NAD. SKIN: Warm and dry. No rash. HEAD: Normocephalic. Atraumatic. EYES: Pupils equal and round. No scleral icterus. No injection or drainage. ENT: No nasal bleeding or discharge. Mucous membranes pink and moist. NECK: Supple. Trachea midline. CARDIOVASCULAR: Regular rate and rhythm. S1, S2 noted. No murmur appreciated. RESPIRATORY: No accessory muscle use. Clear to auscultation. Breath sounds equal bilaterally. GASTROINTESTINAL: Abdomen soft, tender right subcostal, nondistended. Normoactive bowel sounds x4. MUSCULOSKELETAL: No obvious deformities. Extremities without clubbing, cyanosis , or edema. NEUROLOGICAL: Awake and alert. No obvious cranial nerve deficits. Motor grossly within normal limits. Normal speech. PSYCHIATRIC: Appropriate mood and affect; insight and judgment normal. Procedures none A/P Problem List: (1) Chest pain ICD Code: R07.9 Status: Acute (2) Elevated INR ICD Code: R79.1 Status: Acute (3) Acute exacerbation of CHF (congestive heart failure) ICD Code: I50.9 Status: Acute (4) Pulmonary embolism ICD Code: I26.99 Status: Chronic (5) DM (diabetes mellitus) ICD Code: E11.9 Status: Chronic (6) HTN (hypertension) ICD Code: I10 Status: Chronic (7) Hyperlipidemia ICD Code: E78.5 Status: Chronic Assessment and Plan 71-year-old male with a history of CHF (EF 15%) with LifeVest, on home O2, Pulmonary Embolism on Coumadin, HTN, HLD, DM, depression, and prior IVDU, presents with a 1 day history of chest pain. Chest Pain: unclear etiology, need to rule out ACS as patient is high risk. Doubt recurrence of PE with supratherapeutic INR 9.9. Ruled out for KS with negative cardiac enzymes .03, EKG without acute ischemic changes. S/p aspirin and nitro en route. Continue aspirin, JENNIFER, BB, Imdur. Nitro prn. LDL 83. O2 as needed. Monitor on telemetry. Consulted cardiology. Continues to have pain even on Ranexa. Patient points to right subcostal area with tenderness. Obtain lipase and liver sonogram. LFTs within normal limits. Symptom can be related to liver congestion from heart failure Acute on Chronic Systolic CHF Exacerbation: BNP elevated at 890. CXR images reviewed, shows improving interstitial edema in bilateral lungs. Echo 11/01/16 showed EF 15% with diffuse hypokinesis. Continue patient's Lifevest. Continue aspirin, Coreg, Lisinopril. Continue Lasix 40mg daily. Cardiology consulted as above. Pulmonary Embolism with Supratherapeutic INR: INR 9.9. Status post vitamin K. Repeat INR still supratherapeutic. Hold patient's Coumadin. Monitor daily INR. O2 as needed. Diabetes Mellitus: chronic, hold patient's Metformin. Monitor Accu-cheks and cover with SSI. HgbA1c 8.6 in . Hypertension: chronic, stable, continue patient's coreg, lisinopril. Monitor BP. Hyperlipidemia: chronic, check lipid panel and start on statin as above. DVT Prophylaxis: on Coumadin with Supratherapeutic INR Discharge Planning: possible discharge tomorrow or the next day. Problem Qualifiers (1) Chest pain: Qualified Code: R07.9 - Chest pain, unspecified type Alex Alicea MD November 22, 2016 11:59
[2016-11-22] MEDS: RANOLAZINE 500 MG EXTENDED RELEASE TAB PO SCH ×2 (14:14→20:49)
--- NOTE | 2016-11-22 16:08 | EKG ---
Date Performed: 11/21/2016 Time Performed: 11:16:38 PTAGE: 71 years EKG: SINUS TACHYCARDIA POSSIBLE LEFT ATRIAL ENLARGEMENT LEFT ANTERIOR FASCICULAR BLOCK NONSPECIF IC T-WAVE ABNORMALITY Compared to previous tracing, the patient is now tachycardic ABNORMAL ECG NO CT EVIOUS TRACING DOCTOR: Delaney Bernal Interpretating Date/Time 11/22/2016 16:07:19
--- NOTE | 2016-11-22 16:08 | EKG ---
Date Performed: 11/21/2016 Time Performed: 19:42:42 PTAGE: 71 years EKG: SINUS TACHYCARDIA POSSIBLE LEFT ATRIAL ENLARGEMENT MARKED LEFT AXIS DEVIATION NONSPECIFIC T -WAVE ABNORMALITY Compared to prior tracing no significant change ABNORMAL ECG PREVIOUS TRACING : 11/21/2016 11.16 DOCTOR: Delaney Bernal Interpretating Date/Time 11/22/2016 16:07:39
[2016-11-22] MEDS: CARVEDILOL 6.25 MG TAB PO SCH (20:49)
[2016-11-22] MEDS: PRAVASTATIN SOD 40 MG TAB PO SCH (20:49)
[2016-11-22] MEDS: LORazepam 0.5 MG TAB PO PRN (20:52)
--- NOTE | 2016-11-22 23:59 | RADRPT ---
EXAM DATE/TIME: 11/22/2016 18:11 [facility] COMPARISON: No previous studies available for comparison. INDICATIONS : Abdomen pain. MEDICAL HISTORY : Congestive heart failure. Seizures. Hypercholesterolemia. Hypertension. Endocarditis. IV drug use. MR SA. SURGICAL HISTORY : Appendectomy. Cholecystectomy. Back surgery. ENCOUNTER: Initial ACUITY: 1 day PAIN SCORE: 2/10 LOCATION: Right upper quadrant MEASUREMENTS: LIVER: 20.0 cm length COMMON DUCT: 5 mm RIGHT KIDNEY: 13.0 x 4.4 x 4.5 cm SPLEEN: 11.4 cm length FINDINGS: The liver is enlarged and echogenic characteristic of fatty infiltration. Previous cholecystectomy wi th numerous calcifications remaining in the gallbladder fossa. These were seen on prior CT exam Febru deni. No biliary ductal dilatation. Spleen unremarkable. Cortical thinning right kidney. No hydronephrosis. No free fluid. CONCLUSION: 1. Fatty liver enlarged to 20 cm. 2. Cholecystectomy with numerous calcifications remaining in the gallbladder fossa. Mild cortical atrophy right kidney. Jesus Henry MD on November 22, 2016 at 23:53 Board Certified Radiologist. This report was verified electronically.
[2016-11-23] VITALS: BP 106/66; PULSE 87; RESP 20; TEMP 96; O2SAT 98
[2016-11-23 04:00] VITALS: BP 118/75; PULSE 85; RESP 20; TEMP 96; O2SAT 100
[2016-11-23] MEDS: LORazepam 0.5 MG TAB PO PRN ×3 (05:18→21:11)
[2016-11-23] MEDS: ISOSORBIDE MONONITRATE 30 MG TAB PO SCH (05:18)
[2016-11-23] MEDS: INSULIN ASPART SUPPLEMENTAL SCALE SQ SCH ×4 (05:22→20:32)
[2016-11-23 07:43] LABS: INTERNATIONAL NORMALIZED RATIO 1.7 RATIO
[2016-11-23 08:00] VITALS: BP 115/58; PULSE 84; PULSE 86; RESP 18; TEMP 97.7; O2SAT 98
[2016-11-23] MEDS: ASPIRIN EC 81 MG TABEC PO SCH (09:12)
[2016-11-23] MEDS: RANOLAZINE 500 MG EXTENDED RELEASE TAB PO SCH ×2 (09:12→20:29)
[2016-11-23] MEDS: CARVEDILOL 6.25 MG TAB PO SCH ×2 (09:13→20:29)
[2016-11-23] MEDS: LISINOPRIL 5 MG TAB PO SCH (09:13)
[2016-11-23] MEDS: FUROSEMIDE 40 MG TAB PO SCH (09:13)
[2016-11-23] MEDS: SODIUM CHLORIDE 0.9% FLUSH 10 ML FLUSH IV FLUSH SCH ×2 (09:21→20:35)
[2016-11-23] MEDS ORDERED: ALUMINUM/MAGNESIUM/SIMETH 30 ML CUP PO PRN (10:00)
[2016-11-23] MEDS: FAMOTIDINE 20 MG TAB PO SCH ×2 (10:30→20:29)
--- NOTE | 2016-11-23 10:45 | PD.CARD.PN ---
Subjective Subjective Remarks Fatigue Objective Medications Current Medications Medications (Trade) Dose Ordered Sig/Keiko Route Start Time Stop Time Status Last Admin (NS Flush) 2 ml UNSCH PRN IV FLUSH 11/21/16 14:45 (NS Flush) 2 ml BID IV FLUSH 11/21/16 21:00 11/23/16 09:21 (Zofran Inj) 4 mg Q6H PRN IVP 11/21/16 14:45 11/23/16 09:17 (Milk Of Magnesia Liq) 30 ml Q12H PRN PO 11/21/16 14:45 (Narcan Inj) 0.4 mg UNSCH PRN IV 11/21/16 14:45 (Ecotrin Ec) 81 mg DAILY PO 11/22/16 09:00 11/23/16 09:12 (Lasix) 40 mg DAILY PO 11/22/16 09:00 11/23/16 09:13 (Imdur) 30 mg DAILY@07 PO 11/22/16 07:00 11/23/16 05:18 (Prinivil) 5 mg DAILY PO 11/22/16 09:00 11/23/16 09:13 (Nitrostat Sl) 0.3 mg Q5M PRN SL 11/21/16 14:45 (Pravachol) 40 mg HS PO 11/21/16 21:00 11/22/16 20:49 (Tylenol) 650 mg Q4H PRN PO 11/21/16 19:00 (Tums Chew) 1,000 mg TID PRN CHEW 11/21/16 19:00 11/21/16 21:47 (D50w (Vial) Inj) 50 ml UNSCH PRN IV 11/21/16 19:00 (Glucagon Inj) 1 mg UNSCH PRN OTHER 11/21/16 19:00 (Ativan) 0.5 mg Q8H PRN PO 11/21/16 23:00 11/23/16 05:18 (Coreg) 6.25 mg Q12HR PO 11/22/16 21:00 11/23/16 09:13 (Ranexa) 500 mg Q12HR PO 11/22/16 10:00 11/23/16 09:12 Warfarin Sodium 5 mg 5 mg DAILY@1600 PO 11/23/16 16:00 (Coumadin Consult Pharmacy) 0 ml @ 0 mls/hr UNSCH OTHER 11/23/16 08:15 (Mag-Al Plus Susp Liq) 30 ml Q6H PRN PO 11/23/16 10:00 (Pepcid) 20 mg BID PO 11/23/16 10:00 11/23/16 10:30 Vital Signs / I&O Vital Signs Date Time Temp Pulse Resp B/P Pulse Ox O2 Delivery O2 Flow Rate FiO2 11/23/16 08:00 97.7 86 18 115/58 98 11/23/16 07:15 Room Air 11/23/16 04:00 96.0 85 20 118/75 100 11/23/16 04:00 Room Air 11/23/16 00:00 Room Air 11/23/16 00:00 96.0 87 20 106/66 98 11/22/16 20:47 98 11/22/16 20:30 98.8 93 18 108/73 97 11/22/16 20:00 Room Air 11/22/16 20:00 91 11/22/16 16:00 97.1 94 24 110/68 96 11/22/16 12:00 97.4 99 20 119/77 96 I/O 11/22/16 11/22/16 11/22/16 11/23/16 11/23/16 11/23/16 07:00 15:00 23:00 07:00 15:00 23:00 Intake Total 120 ml 600 ml Output Total 400 ml 1000 ml Balance -280 ml -400 ml Intake Oral 120 ml 600 ml Output Urine Total 400 ml 1000 ml # Voids 1 # Bowel Movements 0 Physical Exam GENERAL: Well-nourished, well-developed patient. SKIN: Warm and dry. HEAD: Normocephalic. EYES: No scleral icterus. No injection or drainage. NECK: Supple, trachea midline. No JVD or lymphadenopathy. CARDIOVASCULAR: Regular rate and rhythm without murmurs, gallops, or rubs. RESPIRATORY: Breath sounds equal bilaterally. No accessory muscle use. GASTROINTESTINAL: Abdomen soft, non-tender, nondistended. EXTREMITIES: No cyanosis, or edema. NEUROLOGICAL: Awake, alert, and oriented x 3. Non-focal. Laboratory Laboratory Tests Test 11/23/16 06:30 Prothrombin Time 19.0 SEC Prothromb Time International 1.7 RATIO Ratio Assessment and Plan Problem List: (1) Chest pain Assessment and Plan: Medical management Drug screen Keep NPO for possible LHC in AM (2) Dilated cardiomyopathy (3) Dyspnea (4) Dyslipidemia (5) Elevated INR (6) HTN (hypertension) (7) DM2 (diabetes mellitus, type 2) (8) DM (diabetes mellitus) Problem Qualifiers (1) Chest pain: Qualified Code: R07.9 - Chest pain, unspecified type Juarez Ragland MD November 23, 2016 10:45
[2016-11-23 12:00] VITALS: BP 101/61; PULSE 82; RESP 18; O2SAT 93
--- NOTE | 2016-11-23 14:40 | HHI.PR ---
Subjective Remarks Follow-up abdominal pain. Still having intermittent stabbing right upper quadrant pain. Patient states cardiology's plan to do cardiac catheterization in the morning. Discussed with RN Objective Vitals Vital Signs Date Time Temp Pulse Resp B/P Pulse Ox O2 Delivery O2 Flow Rate FiO2 11/23/16 12:00 82 18 101/61 93 11/23/16 08:00 97.7 86 18 115/58 98 11/23/16 08:00 84 11/23/16 07:15 Room Air 11/23/16 04:00 96.0 85 20 118/75 100 11/23/16 04:00 Room Air 11/23/16 00:00 Room Air 11/23/16 00:00 96.0 87 20 106/66 98 11/22/16 20:47 98 11/22/16 20:30 98.8 93 18 108/73 97 11/22/16 20:00 Room Air 11/22/16 20:00 91 11/22/16 16:00 97.1 94 24 110/68 96 I/O 11/22/16 11/22/16 11/22/16 11/23/16 11/23/16 11/23/16 06:59 14:59 22:59 06:59 14:59 22:59 Intake Total 120 ml 600 ml Output Total 400 ml 1000 ml Balance -280 ml -400 ml Intake Oral 120 ml 600 ml Output Urine Total 400 ml 1000 ml # Voids 1 # Bowel Movements 0 Result Diagram: 11/22/16 0132 11/22/16 0132 Imaging Last Impressions Liver Ultrasound 11/22/16 0000 Signed Impressions: Service Date/Time: Tuesday, November 22, 2016 18:11 - CONCLUSION: 1. Fatty liver enlarged to 20 cm. 2. Cholecystectomy with numerous calcifications remaining in the gallbladder fossa. Mild cortical atrophy right kidney. Jesus Henry MD Chest X-Ray 11/21/16 1119 Signed Impressions: Service Date/Time: Monday, November 21, 2016 11:19 - CONCLUSION: 1. Improving interstitial edema in both lung bases characteristic of resolving edema. 2. Persistent blunting of the right costophrenic angle which may be chronic. Nikos Kaur MD Objective Remarks GENERAL: Well-nourished, well-developed male patient in [facility]. SKIN: Warm and dry. No rash. HEAD: Normocephalic. Atraumatic. EYES: Pupils equal and round. No scleral icterus. No injection or drainage. ENT: No nasal bleeding or discharge. Mucous membranes pink and moist. NECK: Supple. Trachea midline. CARDIOVASCULAR: Regular rate and rhythm. S1, S2 noted. No murmur appreciated. RESPIRATORY: No accessory muscle use. Clear to auscultation. Breath sounds equal bilaterally. GASTROINTESTINAL: Abdomen soft, tender right subcostal, nondistended. Normoactive bowel sounds x4. MUSCULOSKELETAL: No obvious deformities. Extremities without clubbing, cyanosis , or edema. NEUROLOGICAL: Awake and alert. No obvious cranial nerve deficits. Motor grossly within normal limits. Normal speech. PSYCHIATRIC: Appropriate mood and affect; insight and judgment normal. Procedures none A/P Problem List: (1) Chest pain ICD Code: R07.9 Status: Acute (2) Elevated INR ICD Code: R79.1 Status: Acute (3) Acute exacerbation of CHF (congestive heart failure) ICD Code: I50.9 Status: Acute (4) Pulmonary embolism ICD Code: I26.99 Status: Chronic (5) DM (diabetes mellitus) ICD Code: E11.9 Status: Chronic (6) HTN (hypertension) ICD Code: I10 Status: Chronic (7) Hyperlipidemia ICD Code: E78.5 Status: Chronic Assessment and Plan 71-year-old male with a history of CHF (EF 15%) with LifeVest, on home O2, Pulmonary Embolism on Coumadin, HTN, HLD, DM, depression, and prior IVDU, presents with a 1 day history of chest pain. Chest Pain: unclear etiology, need to rule out ACS as patient is high risk. Doubt recurrence of PE with supratherapeutic INR 9.9. Ruled out for PR with negative cardiac enzymes .03, EKG without acute ischemic changes. S/p aspirin and nitro en route. Continue aspirin, JENNIFER, BB, Imdur. Nitro prn. LDL 83. O2 as needed. Monitor on telemetry. Continues to have pain even on Ranexa, patient claims cardiology plans to do cardiac catheterization in the morning we'll confirm. Patient points to right subcostal area with tenderness. Unremarkable lipase and liver sonogram shows enlarged fatty liver. LFTs within normal limits. Symptom can be related to liver congestion from heart failure. Trial tramadol Acute on Chronic Systolic CHF Exacerbation: BNP elevated at 890. CXR images reviewed, shows improving interstitial edema in bilateral lungs. Echo 11/01/16 showed EF 15% with diffuse hypokinesis. Continue patient's Lifevest. Continue aspirin, Coreg, Lisinopril. Continue Lasix 40mg daily. Cardiology consulted as above. Pulmonary Embolism with Supratherapeutic INR: INR 9.9. Status post vitamin K. Repeat INR 1.7. Restart Coumadin if no cardiac catheterization. Monitor daily INR. O2 as needed. Diabetes Mellitus: chronic, hold patient's Metformin. Monitor Accu-cheks and cover with SSI. HgbA1c 8.6 in . Hypertension: chronic, stable, continue patient's coreg, lisinopril. Monitor BP. Hyperlipidemia: chronic, check lipid panel and start on statin as above. LDL 83 DVT Prophylaxis: SCD and early ambulation Discharge Planning: possible discharge tomorrow or the next day. Problem Qualifiers (1) Chest pain: Qualified Code: R07.9 - Chest pain, unspecified type Alex Alicea MD November 23, 2016 14:40
[2016-11-23] MEDS ORDERED: traMADol HCL 50 MG TAB PO PRN (15:15)
[2016-11-23] MEDS ORDERED: NALOXONE HCL 0.4 MG/ML AMP IV PRN (15:15)
[2016-11-23 16:00] VITALS: BP 98/64; PULSE 80; RESP 20; TEMP 97.3; O2SAT 96
[2016-11-23 20:00] VITALS: BP 105/65; PULSE 84; PULSE 85; RESP 20; TEMP 97.2; O2SAT 100
[2016-11-23] MEDS: PRAVASTATIN SOD 40 MG TAB PO SCH (20:29)
[2016-11-23] MEDS: traMADol HCL 50 MG TAB PO PRN (21:12)
[2016-11-24] VITALS (9 sets, daily range): BP systolic 91–109; BP diastolic 59–76; PULSE 77–84; RESP 16–20; TEMP 95.4–98.9; O2SAT 95–100
[2016-11-24] MEDS: LORazepam 0.5 MG TAB PO PRN (06:21)
[2016-11-24] MEDS: ISOSORBIDE MONONITRATE 30 MG TAB PO SCH (06:23)
[2016-11-24] MEDS: INSULIN ASPART SUPPLEMENTAL SCALE SQ SCH ×4 (06:23→22:21)
[2016-11-24 08:02] LABS: INTERNATIONAL NORMALIZED RATIO 1.6 RATIO; PROTHROMBIN TIME - PATIENT 17.7 SEC (9.8-11.6)
[2016-11-24] MEDS: CARVEDILOL 6.25 MG TAB PO SCH ×2 (08:35→22:19)
[2016-11-24] MEDS: FUROSEMIDE 40 MG TAB PO SCH (08:35)
[2016-11-24] MEDS: LISINOPRIL 5 MG TAB PO SCH (08:36)
[2016-11-24] MEDS: FAMOTIDINE 20 MG TAB PO SCH ×2 (08:37→22:19)
[2016-11-24] MEDS: RANOLAZINE 500 MG EXTENDED RELEASE TAB PO SCH (08:37)
[2016-11-24] MEDS: ASPIRIN EC 81 MG TABEC PO SCH (08:37)
[2016-11-24] MEDS: SODIUM CHLORIDE 0.9% FLUSH 10 ML FLUSH IV FLUSH SCH ×2 (08:38→22:19)
[2016-11-24] MEDS: traMADol HCL 50 MG TAB PO PRN (08:43)
[2016-11-24] MEDS ORDERED: ONDANSETRON HCL 4 MG/2 ML VIAL ONE (09:20)
[2016-11-24] MEDS ORDERED: HEPARIN-NS/PF INJ 500 ML ONE (09:29)
[2016-11-24] MEDS ORDERED: VERAPAMIL HCL 5 MG/2 ML VIAL ONE (09:32)
[2016-11-24] MEDS ORDERED: NITROGLYCERIN INJ 5 ML ONE (09:32)
[2016-11-24] MEDS ORDERED: MIDAZOLAM HCL 2 MG/2 ML VIAL ONE (09:33)
[2016-11-24] MEDS ORDERED: HEPARIN SODIUM - IV 10,000 UNITS/10 ML VIAL ONE (09:33)
--- NOTE | 2016-11-24 11:14 | MA ---
cc: CHARO FONG DATE OF 1945 TODAY'S DATE November 24, 2016 PROCEDURE PERFORMED 1. Left heart catheterization. 2. Selective right and left coronary angiography. 3. Left ventriculogram APPROACH Right transradial. DESCRIPTION OF PROCEDURE Consent signed. The patient was brought into the cardiac laborer yard in a fasting state. The right wrist was prepped and draped in sterile fashion. Using a 1% lidocaine for local anesthesia and a micropuncture kit, a 6-Mexican sheath was inserted into the right radial artery, antispasmodic cocktail given. Then selective right and left coronary angiography was performed with JR-4 and JL- 3.5 diagnostic catheters. Angiography was taken in multiple views. The JR-4 catheter was introduced to the left ventricle over a wire. This was followed by pressure recordings, left ventriculogram and pullback. The patient tolerated the procedure well without complications. Estimated blood loss less than 30 cc. Total contrast used 90 cc. The right wrist radial access site was closed with a TR band. RESULTS LEFT VENTRICLE The left ventricular pressure was 88/11 with an LVEDP of 24. The aortic pressure was 91/65 with a mean of 77. There was no gradient upon pullback from the left ventricle to the aorta. The left ventriculogram revealed a diffuse hypokinetic left ventricle with an estimated ejection fraction of 15%. ANGIOGRAPHIC RESULTS 1. Left main patent with nonobstructive CAD and DEANNA-3 flow. 2. LAD is a transapical vessel. It has minimal luminal irregularities throughout. It has a focal 60% lesion in the mid-segment. It has two diagonal vessels which are diffusely diseased with nonobstructive coronary artery disease. The first diagonal does have significant lesion in the proximal segment; however, this diagonal is small. Also the LAD has a prominent S1 vessel. 3. Left circumflex: The left circumflex a dominant vessel giving off the PDA. This vessel is a big vessel, at least 4 mm; it is giving off two OMs as well as the PDA. The OM2 was a long focal 70% lesion proximally however the vessel is small. The PDA is diffusely diseased distally with lesions of about 50%. 4. The right coronary artery is a nondominant vessel; it is small. It has a focal lesion in the mid-segment of around 70%. 5. The ramus is a small vessel and is diffusely diseased. RECOMMENDATIONS The patient has a dilated cardiomyopathy with no significant obstructive coronary artery disease to explain his severe left ventricular dysfunction. Thus, this is a nonischemic cardiomyopathy and should be treated accordingly with aggressive medical management for CAD and heart failure. There is also a question of noncompliance which also needs to be addressed. CONCLUSION 1. Non-Ischemic cardiomyopathy. 2. Severe combined LV dysfunction. MD AUDREY Fotser/SSB /10:31 AM /11:02 AM MTDHomer
[2016-11-24] MEDS ORDERED: IOHEXOL 350 MG/ML 100 ML BTL (for Cath Lab) OTHER ONE (12:55)
[2016-11-24] MEDS: FUROSEMIDE 20 MG TAB PO SCH (14:03)
[2016-11-24] MEDS ORDERED: CARV6.25 PO (14:27)
[2016-11-24] MEDS ORDERED: FAMO20TA2 PO (14:27)
[2016-11-24] MEDS ORDERED: ULTR50TA5 PO (14:27)
[2016-11-24] MEDS ORDERED: FURO20TA PO (14:27)
[2016-11-24] MEDS ORDERED: COUM5TAB PO (14:27)
--- NOTE | 2016-11-24 14:28 | HHI.DCPOC ---
Discharge Care Plan Diagnosis: (1) CHF (congestive heart failure) Your Health Problems Are: Difficulty with ADL Exercise Tolerance Goals to Promote Your Health * To prevent worsening of your condition and complications * To maintain your health at the optimal level Directions to Meet Your Goals Take your medications as prescribed Follow your dietary instruction Follow activity as directed Keep your appointments as scheduled Take your immunizations and boosters as scheduled If your symptoms worsen call your PCP, if no PCP go to Urgent Care Center or Emergency Room Smoking is Dangerous to Your Health. Avoid second hand smoke Call the 24-hour hour crisis hotline for domestic abuse at Alex Alicea MD November 24, 2016 14:28
--- NOTE | 2016-11-24 14:29 | HHI.PR ---
Subjective Remarks Follow-up right upper quadrant pain. Improved pain. He is concerned about being discharged secondary high anxiety level. Discussed with RN Objective Vitals Vital Signs Date Time Temp Pulse Resp B/P Pulse Ox O2 Delivery O2 Flow Rate FiO2 11/24/16 13:52 95.4 77 20 103/59 100 11/24/16 10:33 99 Nasal Cannula 2.00 11/24/16 09:59 97 21 11/24/16 08:00 Room Air 11/24/16 08:00 98.9 82 20 101/71 95 11/24/16 04:00 78 20 91/62 99 11/24/16 04:00 Room Air 11/24/16 00:00 82 20 98/68 97 11/24/16 00:00 Room Air 11/23/16 20:00 85 11/23/16 20:00 97.2 84 20 105/65 100 11/23/16 20:00 Room Air 11/23/16 16:00 97.3 80 20 98/64 96 I/O 11/23/16 11/23/16 11/23/16 11/24/16 11/24/16 11/24/16 07:00 15:00 23:00 07:00 15:00 23:00 Intake Total 720 ml Output Total 700 ml 400 ml 250 ml 200 ml Balance 20 ml -400 ml -250 ml -200 ml Intake Oral 720 ml Output Urine Total 700 ml 400 ml 250 ml 200 ml Result Diagram: 11/22/16 0132 11/22/16 0132 Imaging Last Impressions Liver Ultrasound 11/22/16 0000 Signed Impressions: Service Date/Time: Tuesday, November 22, 2016 18:11 - CONCLUSION: 1. Fatty liver enlarged to 20 cm. 2. Cholecystectomy with numerous calcifications remaining in the gallbladder fossa. Mild cortical atrophy right kidney. Jesus Henry MD Chest X-Ray 11/21/16 1119 Signed Impressions: Service Date/Time: Monday, November 21, 2016 11:19 - CONCLUSION: 1. Improving interstitial edema in both lung bases characteristic of resolving edema. 2. Persistent blunting of the right costophrenic angle which may be chronic. Nikos Kaur MD Objective Remarks GENERAL: Well-nourished, well-developed male patient in [place]. SKIN: Warm and dry. No rash. HEAD: Normocephalic. Atraumatic. EYES: Pupils equal and round. No scleral icterus. No injection or drainage. ENT: No nasal bleeding or discharge. Mucous membranes pink and moist. NECK: Supple. Trachea midline. CARDIOVASCULAR: Regular rate and rhythm. S1, S2 noted. No murmur appreciated. RESPIRATORY: No accessory muscle use. Clear to auscultation. Breath sounds equal bilaterally. GASTROINTESTINAL: Abdomen soft, tender right subcostal, nondistended. Normoactive bowel sounds x4. MUSCULOSKELETAL: No obvious deformities. Extremities without clubbing, cyanosis , or edema. NEUROLOGICAL: Awake and alert. No obvious cranial nerve deficits. Motor grossly within normal limits. Normal speech. PSYCHIATRIC: Appropriate mood and affect; insight and judgment normal. Procedures Cardiac catheterization A/P Problem List: (1) Chest pain ICD Code: R07.9 Status: Acute (2) Elevated INR ICD Code: R79.1 Status: Resolved (3) Acute exacerbation of CHF (congestive heart failure) ICD Code: I50.9 Status: Acute (4) Pulmonary embolism ICD Code: I26.99 Status: Chronic (5) DM (diabetes mellitus) ICD Code: E11.9 Status: Chronic (6) HTN (hypertension) ICD Code: I10 Status: Chronic (7) Hyperlipidemia ICD Code: E78.5 Status: Chronic Assessment and Plan 71-year-old male with a history of CHF (EF 15%) with LifeVest, on home O2, Pulmonary Embolism on Coumadin, HTN, HLD, DM, depression, and prior IVDU, presents with a 1 day history of chest pain. Chest Pain: unclear etiology, need to rule out ACS as patient is high risk. Doubt recurrence of PE with supratherapeutic INR 9.9. Ruled out for MO with negative cardiac enzymes .03, EKG without acute ischemic changes. S/p aspirin and nitro en route. Continue aspirin, JENNIFER, BB, Imdur. Nitro prn. LDL 83. O2 as needed. Monitor on telemetry. Cardiac catheterization reveals nonischemic cardiomyopathy with severe LV dysfunction. Patient points to right subcostal area with tenderness. Unremarkable lipase and liver sonogram shows enlarged fatty liver. LFTs within normal limits. Symptom can be related to liver congestion from heart failure. Continue tramadol Acute on Chronic Systolic CHF Exacerbation: BNP elevated at 890. CXR images reviewed, shows improving interstitial edema in bilateral lungs. Echo 11/01/16 showed EF 15% with diffuse hypokinesis. Continue patient's Lifevest. Continue aspirin, Coreg, Lisinopril. Continue Lasix 40mg daily. Cardiology consulted as above. Pulmonary Embolism with Supratherapeutic INR: INR 9.9. Status post vitamin K. Repeat INR 1.7. Restart Coumadin. Monitor daily INR. O2 as needed. Diabetes Mellitus: chronic, hold patient's Metformin. Monitor Accu-cheks and cover with SSI. HgbA1c 8.6 in . Hypertension: chronic, stable, continue patient's coreg, lisinopril. Monitor BP. Hyperlipidemia: chronic, LDL 83 DVT Prophylaxis: SCD and early ambulation Discharge Planning: Discharge today Problem Qualifiers (1) Chest pain: Qualified Code: R07.9 - Chest pain, unspecified type Alex Alicea MD November 24, 2016 14:28
[2016-11-24] MEDS ORDERED: HYDR-3133 PO (14:30)
[2016-11-24] MEDS: WARFARIN SOD 5 MG TAB PO SCH (16:36)
--- NOTE | 2016-11-24 18:33 | HHI.DS ---
Discharge Summary Admission Date November 21, 2016 at 14:42 Discharge Date: November 25, 2016 Admitting Diagnosis chest pain, elevated INR, CHF (1) Chest pain ICD Code: R07.9 Diagnosis: Principal (2) Elevated INR ICD Code: R79.1 Diagnosis: Principal (3) Acute exacerbation of CHF (congestive heart failure) ICD Code: I50.9 Diagnosis: Principal (4) Pulmonary embolism ICD Code: I26.99 Diagnosis: Principal (5) DM (diabetes mellitus) ICD Code: E11.9 Diagnosis: Secondary (6) HTN (hypertension) ICD Code: I10 Diagnosis: Secondary (7) Hyperlipidemia ICD Code: E78.5 Diagnosis: Secondary Procedures Cardiac catheterization Brief History - From Admission Written by Krystal Arteaga, acting as scribe for Dr. Restrepo on 11/21/16 at 17: 02. 71-year-old male with a history of CHF (EF 15%) with LifeVest, on home O2, Pulmonary Embolism on Coumadin, HTN, HLD, DM, anxiety, depression, and prior IVDU, presents with a 1 day history of chest pain. The patient reports last night he went to bed as usual around 1011 PM, then he woke up all of a sudden at 12 AM with severe chest pain. He locates the chest into the right lower anterior chest with radiation into the right shoulder, described as constant sharp 10/10 pain, associated with severe shortness of breath, and nausea but no vomiting. The pain is worsened with deep inspiration. The pain persisted throughout the night and continued to get worse, therefore he called 911. En route, he was given nitroglycerin 2 which eliminated the pain. However after his arrival to the ER, the chest pain returned, he received additional dose of nitroglycerin which did not help the second time. The patient does admit to a 1 -day history of cough productive of clearyellow phlegm. He denies fevers or chills. He denies any abdominal pain, constipation, or diarrhea. Denies any lightheadedness/dizziness. Since his arrival, INR noted to be elevated at 9.9. He denies any bleeding, melena, hematochezia. The patient states that he has only seen his PCP Dr. Joseph since his discharge last time, and nobody has been following his INR. The patient states he has not tried to see his commissary officer because he thought he had to see his PCP first for referral. The patient has no other medical complaints at this time. CBC/BMP: 11/22/16 0132 11/22/16 0132 Significant Findings Laboratory Tests Test 11/22/16 11/23/16 11/24/16 01:32 06:30 06:40 Red Blood Count 4.48 MIL/MM3 (4.50-5.90) Red Cell Distribution Width 18.0 % (11.6-17.2) Prothrombin Time 75.5 SEC 19.0 SEC 17.7 SEC (9.8-11.6) (9.8-11.6) (9.8-11.6) Prothromb Time International 6.3 RATIO Ratio Estimat Glomerular Filtration 86 ML/MIN (>89) Rate Random Glucose 110 MG/DL (74-106) Albumin 3.2 GM/DL (3.4-5.0) HDL Cholesterol 36.9 MG/DL (40.0-60.0) Imaging Last Impressions Liver Ultrasound 11/22/16 0000 Signed Impressions: Service Date/Time: Tuesday, November 22, 2016 18:11 - CONCLUSION: 1. Fatty liver enlarged to 20 cm. 2. Cholecystectomy with numerous calcifications remaining in the gallbladder fossa. Mild cortical atrophy right kidney. Jesus Henry MD Chest X-Ray 11/21/16 1119 Signed Impressions: Service Date/Time: Monday, November 21, 2016 11:19 - CONCLUSION: 1. Improving interstitial edema in both lung bases characteristic of resolving edema. 2. Persistent blunting of the right costophrenic angle which may be chronic. Nikos Kaur MD PE at Discharge GENERAL: Well-nourished, well-developed male patient in [facility]. SKIN: Warm and dry. No rash. HEAD: Normocephalic. Atraumatic. EYES: Pupils equal and round. No scleral icterus. No injection or drainage. ENT: No nasal bleeding or discharge. Mucous membranes pink and moist. NECK: Supple. Trachea midline. CARDIOVASCULAR: Regular rate and rhythm. S1, S2 noted. No murmur appreciated. RESPIRATORY: No accessory muscle use. Clear to auscultation. Breath sounds equal bilaterally. GASTROINTESTINAL: Abdomen soft, tender right subcostal, nondistended. Normoactive bowel sounds x4. MUSCULOSKELETAL: No obvious deformities. Extremities without clubbing, cyanosis , or edema. NEUROLOGICAL: Awake and alert. No obvious cranial nerve deficits. Motor grossly within normal limits. Normal speech. PSYCHIATRIC: Appropriate mood and affect; insight and judgment normal. Hospital Course 71-year-old male with a history of CHF (EF 15%) with LifeVest, on home O2, Pulmonary Embolism on Coumadin, HTN, HLD, DM, depression, and prior IVDU, presents with a 1 day history of chest pain. Chest Pain: unclear etiology, need to rule out ACS as patient is high risk. Doubt recurrence of PE with supratherapeutic INR 9.9. Ruled out for ID with negative cardiac enzymes .03, EKG without acute ischemic changes. S/p aspirin and nitro en route. Continue aspirin, JENNIFER, BB, Imdur. Nitro prn. LDL 83. O2 as needed. Monitor on telemetry. Cardiac catheterization reveals nonischemic cardiomyopathy with severe LV dysfunction. Patient points to right subcostal area with tenderness. Unremarkable lipase and liver sonogram shows enlarged fatty liver. LFTs within normal limits. Symptom can be related to liver congestion from heart failure. Continue tramadol Acute on Chronic Systolic CHF Exacerbation: BNP elevated at 890. CXR images reviewed, shows improving interstitial edema in bilateral lungs. Echo 11/01/16 showed EF 15% with diffuse hypokinesis. Continue patient's Lifevest. Continue aspirin, Coreg, Lisinopril. Continue Lasix 40mg daily. Cardiology consulted as above. Pulmonary Embolism with Supratherapeutic INR: INR 9.9. Status post vitamin K. Repeat INR 1.7. Restart Coumadin. Monitor daily INR. O2 as needed. Diabetes Mellitus: chronic, hold patient's Metformin. Monitor Accu-cheks and cover with SSI. HgbA1c 8.6 in . Hypertension: chronic, stable, continue patient's coreg, lisinopril. Monitor BP. Hyperlipidemia: chronic, LDL 83 DVT Prophylaxis: SCD and early ambulation 11/25/16 stable for discharge ambulating hallway on room air. Pt Condition on Discharge: Stable Discharge Disposition: Discharge Home Discharge Time: > 30 minutes Discharge Instructions DIET: Follow Instructions for: Heart Healthy Diet Activities you can perform: Regular-No Restrictions Activities to Avoid: Driving Follow up Referrals: Cardiology - 1 Week PCP Follow-up - 1 Week New Medications: Hydroxyzine HCl (Hydroxyzine HCl) 25 Mg Tab 25 MG PO QID PRN Control Anxiety #28 Ref 0 TAB Carvedilol (Coreg) 6.25 Mg Tab 6.25 MG PO Q12HR Regulate Heart Beat #60 TAB Famotidine (Famotidine) 20 Mg Tab 20 MG PO BID Manage Heartburn #60 TAB Furosemide (Furosemide) 20 Mg Tab 20 MG PO DAILY Prevent Heart Failure #30 TAB Tramadol (Ultram) 50 Mg Tab 100 MG PO Q6HR PRN PAIN SCALE 6 TO 10 #28 TAB Warfarin (Coumadin) 5 Mg Tab 5 MG PO DAILY@1600 Prevent Blood Clot #30 TAB Continued Medications: Aspirin (Aspirin) 81 Mg Tabdr 81 MG PO DAILY TAB Isosorbide Mononitrate ER (Isosorbide Mononitrate ER) 30 Mg Ranulfo 30 MG PO DAILY@07 CHF #30 TAB Lisinopril (Lisinopril) 5 Mg Tab 5 MG PO DAILY CHF #30 TAB Metformin (Metformin) 500 Mg Tab 500 MG PO DAILY With a meal Blood Sugar Management #30 Ref 0 TAB Alex Alicea MD November 24, 2016 18:33
[2016-11-25] VITALS (7 sets, daily range): BP systolic 105–113; BP diastolic 68–74; PULSE 78–87; RESP 16–20; TEMP 95.6–98; O2SAT 95–100
[2016-11-25] MEDS: traMADol HCL 50 MG TAB PO PRN ×2 (01:22→15:26)
[2016-11-25] MEDS: ISOSORBIDE MONONITRATE 30 MG TAB PO SCH (05:50)
[2016-11-25] MEDS: INSULIN ASPART SUPPLEMENTAL SCALE SQ SCH ×3 (05:51→16:00)
[2016-11-25] MEDS: CARVEDILOL 6.25 MG TAB PO SCH (08:50)
[2016-11-25] MEDS: LISINOPRIL 5 MG TAB PO SCH (08:51)
[2016-11-25] MEDS: FAMOTIDINE 20 MG TAB PO SCH (08:52)
[2016-11-25] MEDS: ASPIRIN EC 81 MG TABEC PO SCH (08:52)
[2016-11-25] MEDS: SODIUM CHLORIDE 0.9% FLUSH 10 ML FLUSH IV FLUSH SCH (08:52)
[2016-11-25] MEDS: FUROSEMIDE 20 MG TAB PO SCH (08:56)
[2016-11-25 13:32] LABS: PROTHROMBIN TIME - PATIENT 22.6 SEC (9.8-11.6)
--- NOTE | 2016-11-25 15:14 | PD.CARD.PN ---
Subjective Subjective Remarks no overnight events Objective Medications Current Medications Medications (Trade) Dose Ordered Sig/Keiko Route Start Time Stop Time Status Last Admin (NS Flush) 2 ml UNSCH PRN IV FLUSH 11/21/16 14:45 (NS Flush) 2 ml BID IV FLUSH 11/21/16 21:00 11/25/16 08:52 (Zofran Inj) 4 mg Q6H PRN IVP 11/21/16 14:45 11/23/16 09:17 (Milk Of Magnesia Liq) 30 ml Q12H PRN PO 11/21/16 14:45 (Ecotrin Ec) 81 mg DAILY PO 11/22/16 09:00 11/25/16 08:52 (Imdur) 30 mg DAILY@07 PO 11/22/16 07:00 11/25/16 05:50 (Prinivil) 5 mg DAILY PO 11/22/16 09:00 11/23/16 09:13 (Nitrostat Sl) 0.3 mg Q5M PRN SL 11/21/16 14:45 (Tylenol) 650 mg Q4H PRN PO 11/21/16 19:00 (Tums Chew) 1,000 mg TID PRN CHEW 11/21/16 19:00 11/21/16 21:47 (D50w (Vial) Inj) 50 ml UNSCH PRN IV 11/21/16 19:00 (Glucagon Inj) 1 mg UNSCH PRN OTHER 11/21/16 19:00 (Ativan) 0.5 mg Q8H PRN PO 11/21/16 23:00 11/24/16 06:21 (Coreg) 6.25 mg Q12HR PO 11/22/16 21:00 11/24/16 22:19 Warfarin Sodium 5 mg 5 mg DAILY@1600 PO 11/23/16 16:00 11/24/16 16:36 (Coumadin Consult Pharmacy) 0 ml @ 0 mls/hr UNSCH OTHER 11/23/16 08:15 (Mag-Al Plus Susp Liq) 30 ml Q6H PRN PO 11/23/16 10:00 (Pepcid) 20 mg BID PO 11/23/16 10:00 11/25/16 08:52 (Ultram) 50 mg Q4H PRN PO 5/21/17 15:15 11/23/16 17:34 (Ultram) 100 mg Q4H PRN PO 11/23/16 15:15 11/25/16 01:22 (Narcan Inj) 0.4 mg UNSCH PRN IV 11/23/16 15:15 (Lasix) 20 mg DAILY PO 11/24/16 10:45 11/25/16 08:56 Vital Signs / I&O Vital Signs Date Time Temp Pulse Resp B/P Pulse Ox O2 Delivery O2 Flow Rate FiO2 11/25/16 12:00 97.9 82 20 113/70 95 11/25/16 10:08 98 21 11/25/16 08:00 Room Air 11/25/16 08:00 95.6 85 20 105/69 99 11/25/16 07:39 87 11/25/16 04:00 98.0 86 18 107/68 98 11/25/16 04:00 98.0 86 18 107/68 98 11/25/16 04:00 Room Air 11/25/16 00:00 Room Air 11/25/16 00:00 97.8 78 16 112/74 99 11/24/16 23:11 84 11/24/16 20:00 97.6 81 16 109/76 100 11/24/16 20:00 Room Air 11/24/16 15:59 97.1 81 20 99/63 96 I/O 11/24/16 11/24/16 11/24/16 11/25/16 11/25/16 11/25/16 06:59 14:59 22:59 06:59 14:59 22:59 Intake Total 360 ml 120 ml Output Total 250 ml 200 ml 200 ml Balance -250 ml -200 ml 160 ml 120 ml Intake Oral 360 ml 120 ml Output Urine Total 250 ml 200 ml 200 ml # Voids 1 3 # Bowel Movements 1 0 Physical Exam GENERAL: Well-nourished, well-developed patient. SKIN: Warm and dry. HEAD: Normocephalic. EYES: No scleral icterus. No injection or drainage. NECK: Supple, trachea midline. No JVD or lymphadenopathy. CARDIOVASCULAR: Regular rate and rhythm without murmurs, gallops, or rubs. RESPIRATORY: Breath sounds equal bilaterally. No accessory muscle use. GASTROINTESTINAL: Abdomen soft, non-tender, nondistended. EXTREMITIES: No cyanosis, or edema. NEUROLOGICAL: Awake, alert, and oriented x 3. Non-focal. Laboratory Laboratory Tests Test 11/25/16 12:55 Prothrombin Time 22.6 SEC Prothromb Time International 2.0 RATIO Ratio Assessment and Plan Problem List: (1) Chest pain Assessment and Plan: Cont medical management Stable from CV standpoint to be d/c home (2) Dilated cardiomyopathy (3) Dyspnea (4) Dyslipidemia (5) Elevated INR (6) HTN (hypertension) (7) DM2 (diabetes mellitus, type 2) (8) DM (diabetes mellitus) Problem Qualifiers (1) Chest pain: Qualified Code: R07.9 - Chest pain, unspecified type Juarez Ragland MD November 25, 2016 15:14
[2016-11-25] MEDS: WARFARIN SOD 5 MG TAB PO SCH (15:26)
--- NOTE | 2016-11-27 08:12 | CATHPROC ---
[employer] HIS Report Study Information Study Number Admission Scheduled Start Study Start [id number] 11/21/2016 11/24/2016 Nov 24 2016 8:39AM Study Type Left Heart Cath Referring Institution Admit Source Facility Department 1 Other [facility] - [employer] Install[employer] Helper Physician and Clinical Staff Initial Juarez Hampton Access Nurse Emerita Ferguson,NOREEN Other Mario Hamlin,CHRISTELLE(BS) Recorder Perez Stovall,RT(R) Scrub George Kelley RCIS(BS) Procedures Performed Procedure Location (Site) Vessel Name Coronary Angiograms LCA Left Coronary Coronary Angiograms RCA Right Coronary L Heart Cath LV Gram-hand inj. LV LV Ventricle Equipment Time Airline Stewardess Description Size Mfg Part Number Used/Scraped TRANSDUCER, TRUWAVE 08:52 VIGIL FERGUSON * [id number] Used W/DNA GamesCK [id number] *[id number] [id number] *[id number] 08:52 Likelii PACK, CCL CUSTOM * Used *[id number] 08:52 Likelii SUPPORT, ARTERIAL ADULT [id number] Used BAND, RADIAL COMPRESSION TR [id number] 10:14 HipWay MEDICAL 24CM Used SHORT 24 *[id number] 08:52 Vivolux WIRE, 3MMJ .035 180CM 180CM Used *[id number] 08:52 NAMIC MANIFOLD, 4 PORT * Used *[id number] 08:52 NYCOMED OMNIPAQUE, 350 MG, 150ML 150ML [id number] Used [id number] 08:52 Revel Touch MEDICAL BLANKET,WARM AIR CCL * Used *[id number] SHEATH, FR6 TRANSRADIAL 08:52 JethroData FR 6 [id number] Used SLENDER 10CM History: Current Medications Medication Dosage/Unit Route Frequency Last Date/Time Taken Coumadin NTG SL LASIX LISINOPRIL Glucophage History: Allergies Allergy Reaction *MDRO Multi-Drug Resistant Organism Morphine History: Risk Factors Family History of Hypertension Dyslipidemia Previous NE Previous Heart Failure Premature CAD Yes Yes No No Yes Prior Valve Prior PCI Prior CABG Surgery No No No Cerebrovascular Peripheral Artery Chronic Lung On Dialysis Diabetes Diabetes Therapy Disease Disease Disease No Yes No Yes Yes Oral History: Risk Factors Selection Items Hyperlipidemia Chronic Lung Disease on O2 Previous Cardiovascular Treatment History: Symptoms/Diagnosis Selection Items Chest pain History: CV Disease Selection Items Known CAD History: Stress Tests Stress or Imaging Studies Performed Yes Standard Exercise Stress Test No Stress Echo No Stress Test SPECT Stress Test SPECT Result Stress Test SPECT Ischemia Risk/Extent Yes Positive High Stress Test CMR No Cardiac CTA Coronary Calcium Score No No History: Other Disease Selection Items CAD CHF Depression HTN Stroke History: Other Current Smoker Method Quit Packs a Day Years Used Pack Years No Cigarettes 20 Years Ago 2 15 30 Labs Hgb (g/dl) Hct (%) RBC (MIL/MM3) WBC (l/cumm) Platelets (thousands) 12.00-18.00 37.00-55.00 4.80-6.20 4.80-10.80 140.00-450.00 13.0 39.7 4.4 7.1 232 Glucose (mg/dl) BUN (mg/dl) Creatinine (mg/dl) BUN:Creatinine (1:x) 60.00-110.00 8.00-20.00 0.10-9.00 10.00-20.00 110 16 0.8 20 Na (meq/l) K (meq/l) Cl (meq/l) CO2 (mmol/L) Ca (mg/dl) 138.00-146.00 3.80-5.10 101.00-111.00 23.00-30.00 9.00-10.50 138 3.9 107 21.1 9.9 PT (sec) INR (PTT:PT) 9.40-11.40 0.50-2.00 17.7 1.6 Troponin I (ng/ml) Troponin T (ng/ml) CPK (u/l) CPK-MB (ng/ML) 0.40-2.30 0.40-2.10 37.00-289.00 0.00-7.00 0.02 0.04 112 3.6 Medication Medication Total Dose (Bolus/Oral) Medication Total Dosage/Unit 1% XYLOCAINE 5 mL FENTANYL 50 mcg RADIAL COCKTAIL 5 mL (Bolus) VERSED 2 mg Medications (Bolus/Oral) Medication Time Given Dosage/Unit Administered By Reason 1% XYLOCAINE 11/24/2016 9:52:53 AM 5 mL Juarez Ragland 5 mL 1% XYLOCAINE given in lab by Juarez Ragland in Right Radial via Subcutaneous. Ordered by Juarez Griffin. VERSED 11/24/2016 9:53:20 AM 1 mg Ferguson, Emerita 1 mg VERSED given in lab by Emerita Ferguson RN in Right Forearm via Peripheral IV. Ordered by Juarez Griffin. FENTANYL 11/24/2016 9:53:33 AM 25 mcg Marty Emerita 25 mcg FENTANYL given in lab by Emerita eFrguson RN in Right Forearm via Peripheral IV. Ordered by Juarez Ragland. Ntg 200mcg Verapamil 2.5mg Heparin RADIAL COCKTAIL 11/24/2016 9:54:50 AM 5 mL (Bolus) Danielle Fergusona 2000U 5 mL (Bolus) RADIAL COCKTAIL given in lab by Emerita Ferguson RN via Radial. Using [Solution Name]. Ordered by Juarez Ragland. Reason: Ntg 200mcg Verapamil 2.5mg Heparin 2000U. VERSED 11/24/2016 9:57:54 AM 1 mg Danielle Fergusona 1 mg VERSED given in lab by Emerita Ferguson RN in Right Forearm via Peripheral IV. Ordered by Juarez Griffin. FENTANYL 11/24/2016 9:58:14 AM 25 mcg Emerita Ferguson 25 mcg FENTANYL given in lab by Emerita Ferguson RN in Right Forearm via Peripheral IV. Ordered by Juarez Ragland. Medication (Drip) Medication Time Given Dosage/Unit Concentration/Unit Diluent (ml) Solution IV Solutions 11/24/2016 9:21:49 AM 0 mL (IV) 500 NaCl .9 IV Solutions given in lab by Emerita Ferguson RN in Right Forearm via Peripheral IV. Pump/Drip Flow = 20 ml/hr using NaCl .9. Initial Case Assessment Cardiovascular HR Rhythm NIBP Chest Pain 80 Sinus 101/71 6 Edema Present Skin color Skin None Normal Warm Dry Circulatory - Right Pulses Dorsalis Pedis Femoral Radial d 2 2 Scale (0,1,2,3,4,d) Scale (0,1,2,3,4,d) Neurological State Oriented to time-place- Alert Moves all extremities person Respiration - General Respiration Rate SpO2 (%) O2 (lpm) (B/min) 20 97 0 Final Case Assessment Cardiovascular HR Rhythm NIBP Chest Pain 72 sinus 103/58 5 Edema Present Skin color Skin None Normal Warm Dry Circulatory - Right Pulses Dorsalis Pedis Femoral Radial d 2 2 Scale (0,1,2,3,4,d) Scale (0,1,2,3,4,d) Neurological State Oriented to time-place- Alert Moves all extremities person Respiration - General Respiration Rate SpO2 (%) O2 (lpm) (B/min) 15 93 2 Chronological Log Time Study Chronological Log 9:15:51 Patient arrived via Bed. 9:15:52 Patient Name, D.O.B, / Armband Verified By R.N. 9:15:53 Consent signed by the physician and the patient and verified by the [employer] staff. 9:15:54 Pre-op and post- op instructions given; patient acknowledges understanding of instructions. 9:15:55 Verbal Stimulation=2 Physical Stimulation=2 Airway=2 Respiration=2 TOTAL=2. (0=absent, 1=tsai ited, 2=present) 9:21:09 Presedation assessment performed by Gas M[employer] Installer Helper RN. 9:21:11 Allens test performed on the right radial and ulnar artery. 9:21:14 Patient has been NPO for More than 6Hrs. 9:21:15 Skin Breakdown- none per patient. 9:21:26 Patient Warmer Placed on the Table. 9:21:27 Samia Prominences Protected 9:21:29 A # 20 IV was noted in the Forearm (right). Grade = 0 IV Solutions given in lab by Emerita Ferguson, RN in Right Forearm via Peripheral IV. Pump/Drip Flow = 20 ml/hr 9:21:49 using NaCl .9. 9:22:20 History and physical on the chart or being dictated. Assessment: Initial Case, HR=80 BPM, Rhythm=Sinus, BIPV=297/71 mmhg, Chest Pain=6, Edema=None, Color=Normal, Skin = Warm, Dry 9:22:22 Right Pulses: Sergey Ped=d, Femoral=2, Radial=2 Neurological: State=Alert, Ox3, ROJO Respiration: Resp=20 B/min, SpO2=97 %, O2=0 lpm Vitals capture started with the following parameters, Patient=Adult, Interval=15 min, Initial Pr bzqxjr=551 mmHg, 9:28:14 Deflation Rate=5 mmHg 9:28:45 EFPG=377/71 mmhg, Pain=6, Violet=10, Villagran=2 9:29:34 Reference ECG taken 9:33:46 HR=79 bpm, NIBP=96/55 mmhg, EiI4=378.0 %, Resp=16 B/min, Pain=6, Violet=10, Villagran=2 9:38:41 NIBP=99/73 mmhg, Villagran=2 9:40:43 Right Radial and groin(s) prepped with 2% chlorhexidine, and with a 3 min. waiting time. 9:43:38 HR=80 bpm, ZQWY=098/77 mmhg, SpO2=97.0 %, Resp=14 B/min, Villagran=2 9:47:09 MD paged 9:47:15 Pressure channel 1 zeroed. 9:48:43 HR=84 bpm, ZARK=474/75 mmhg, Resp=20 B/min, Villagran=2 9:49:52 MD arrived. Time Out. Correct patient, correct procedure,correct physician, power injector not loaded with c ontrast with surgical 9:52:24 team present. Time Out Concurred by , individual staff in procedure 9:52:48 Case Start 5 mL 1% XYLOCAINE given in lab by Juarez Ragland in Right Radial via Subcutaneous. Ordered by Ellyn, 9:52:53 Juarez. 1 mg VERSED given in lab by Emerita Ferguson, NOREEN in Right Forearm via Peripheral IV. Ordered by Ellyn, 9:53:20 Juarez. 25 mcg FENTANYL given in lab by Emerita Ferguson, NOREEN in Right Forearm via Peripheral IV. Ordere d by Ellyn, 9:53:33 Juarez. 9:53:42 HR=81 bpm, ZAJR=989/71 mmhg, Resp=25 B/min, Pain=6, Violet=10, Villagran=2 9:54:07 Access site was Radial Artery. A SHEATH, FR6 TRANSRADIAL SLENDER 10CM FR 6 was advanced into the Radial (right) using the Cheikh solorio 9:54:22 technique. 5 mL (Bolus) RADIAL COCKTAIL given in lab by Emerita Ferguson, RN via Radial. Using [Solution N stefan]. Ordered by 9:54:50 Juarez Ragland. Reason: Ntg 200mcg Verapamil 2.5mg Heparin 2000U. A JR 4.0 INFINITI CATHETER FR 5 was advanced over a wire. OMNIPAQUE, 350 MG, 150ML 150ML was use d for 9:55:02 injections. Recorded Pressure: LV, HR=87, Condition=Condition 1 9:57:20 (Left Ventricle) LV 83/6/19 9:57:49 The LV was manually injected with 6 cc's and visualized. OMNIPAQUE, 350 MG, 150ML 150ML used . 1 mg VERSED given in lab by Emerita Ferguson, RN in Right Forearm via Peripheral IV. Ordered b y Ellyn, 9:57:54 Juarez. Recorded Pressure: LV, Ao, HR=79, Condition=Condition 1 9:58:09 (Left Ventricle) LV 88/11/24, (Aorta) Ao 91/65/77 25 mcg FENTANYL given in lab by Emerita Ferguson, NOREEN in Right Forearm via Peripheral IV. Order ed by Ellyn, 9:58:14 Juarez. Recorded Pressure: LV, Ao, HR=77, Condition=Condition 1 9:58:14 (Left Ventricle) LV ?/?/?, (Aorta) Ao 84/60/71 9:58:50 HR=78 bpm, NIBP=95/60 mmhg, SpO2=96.0 %, Resp=19 B/min, Pain=6, Violet=10, Villagran=2 9:59:14 The RCA was injected and visualized at various angles. OMNIPAQUE, 350 MG, 150ML 150ML used . Recorded Pressure: Ao, HR=79, Condition=Condition 1 9:59:51 (Aorta) Ao 84/63/73 10:01:37 Catheter was removed A JL 3.5 INFINITI CATHETER FR 5 was advanced over a wire. OMNIPAQUE, 350 MG, 150ML 150ML was us ed for 10:01:52 injections. 10:03:46 The LCA was injected and visualized at various angles. OMNIPAQUE, 350 MG, 150ML 150ML used . 10:03:49 HR=76 bpm, VNLR=622/56 mmhg, SpO2=94.0 %, Resp=15 B/min, Pain=6, Violet=10, Villagran=2 10:08:52 HR=75 bpm, GFMK=206/58 mmhg, SpO2=95.0 %, Resp=12 B/min, Villagran=2 10:11:26 Catheter was removed 10:11:34 Case End Assessment: Final Case, HR=72 BPM, Rhythm=sinus, IZFL=355/58 mmhg, Chest Pain=5, Edema=None, Color=Normal, Skin = Warm, Dry 10:11:52 Right Pulses: Sergey Ped=d, Femoral=2, Radial=2 Neurological: State=Alert, Ox3, ROJO Respiration: Resp=15 B/min, SpO2=93 %, O2=2 lpm Radial Compression Device Used. 11 mLs of air placed in BAND, RADIAL COMPRESSION TR SHORT 24 24 CM. Affected 10:13:22 hand 95 % O2 saturation. 10:13:51 HR=74 bpm, NIBP=97/66 mmhg, SpO2=90.0 %, Resp=11 B/min, Pain=6, Violet=10, Villagran=2 10:15:03 No case complications noted. 10:15:07 Cine recording checked. 10:16:17 Bedside Report will be given. 10:16:21 A Left Heart Cath was performed. 10:18:50 MEOK=056/60 mmhg, Pain=6, Violet=10, Villagran=2 10:23:04 Vitals capture stopped. 10:24:47 Patient moved to [facility] End Study - Contrast Media Used In Study Contrast Total Opened (mL) Total Used (mL) Total Wasted (mL) Omnipaque 150 90 60 End Study - Maximum Contrast Load Max Contrast Load (mL) 465.1 End Study - Radiation Exposure Fluoro Time (minutes) 5.9 End Study - Patient Disposition Complications Transferred To Interventional Outcome No Critical Care Bed No attempt made
== END 2016-11-25 18:03 | disposition home or self-care (01) | DRG 287 ==
LOC: NEPE 11:05 → NEDA 14:42 → OBSVTOIN 14:43 → N04A 17:56
PROVIDERS: ADMIT Internal Medicine; ATTEND Internal Medicine
PROC: B2111ZZ Fluoroscopy of Multiple Coronary Arteries using Low Osmolar Contrast (ICD-10-PCS; 2016-11-24)
PROC: B2151ZZ Fluoroscopy of Left Heart using Low Osmolar Contrast (ICD-10-PCS; 2016-11-24)
PROC: 4A023N7 Measurement of Cardiac Sampling and Pressure, Left Heart, Percutaneous Approach (ICD-10-PCS; principal; 2016-11-24 09:00)
DX: I50.23 Acute on chronic systolic (congestive) heart failure (principal); D68.61 Antiphospholipid syndrome; I42.0 Dilated cardiomyopathy; Z99.81 Dependence on supplemental oxygen; R07.9 Chest pain, unspecified; K76.1 Chronic passive congestion of liver; E78.5 Hyperlipidemia, unspecified; E11.9 Type 2 diabetes mellitus without complications; I25.119 Atherosclerotic heart disease of native coronary artery with unspecified angina pectoris; I10 Essential (primary) hypertension; R79.1 Abnormal coagulation profile; F41.9 Anxiety disorder, unspecified; I25.10 Atherosclerotic heart disease of native coronary artery without angina pectoris; R10.11 Right upper quadrant pain; Z86.711 Personal history of pulmonary embolism; Z86.73 Personal history of transient ischemic attack (TIA), and cerebral infarction without residual deficits; Z79.01 Long term (current) use of anticoagulants; Z87.891 Personal history of nicotine dependence; Z79.84 Long term (current) use of oral hypoglycemic drugs; Z88.5 Allergy status to narcotic agent
CPT/HCPCS: 71010; 76705; 80048; 80053; 80061; 82550; 82552; 82948; 83690; 83735; 83880; 84484; 85025; 85610; 85730; 93005; 93454; C1769; C1893; G8987-GP; G8988-GP; J1644; J1815; J2250; J2405; J3010; Q9967

== ENCOUNTER 2016-11-29 19:10 | Emergency (ER) | payer MEDICARE ==
[~2016-11-29] VITALS: Ht 182.9 cm; Wt 72.0 kg
[~2016-11-29 19:10] MED LIST changes: +ASPI1TAB69 PO; +CARV6.25 PO; +COUM5TAB PO; +FAMO20TA2 PO; +FURO20TA PO; -GLYB2.5T3 PO; +HYDR-3133 PO; -LORA-392 PO; +METF500T PO; -SPIR25TA PO; +ULTR50TA5 PO
[2016-11-29 19:13] VITALS: BP 135/79; PULSE 97; RESP 18; TEMP 98.2; O2SAT 97
[2016-11-29] MEDS ORDERED: SODIUM CHLORIDE 0.9% FLUSH 10 ML FLUSH IVF PRN (19:30)
[2016-11-29] MEDS ORDERED: TRAM50TA PO (19:31)
[2016-11-29] MEDS ORDERED: ASPI81CH CHEW (19:31)
[2016-11-29 19:54] LABS: AUTOMATED NEUTROPHIL # 4.2 TH/MM3 (1.8-7.7); BASOPHIL % 0.6 % (0.0-2.0); EOSINOPHIL % 0.8 % (0.0-4.0); HEMATOCRIT 37.9 % (39.0-51.0); HEMO FLAGS DIFF FINAL; LYMPH % 18.9 % (9.0-44.0); LYMPHOCYTE # 1.1 TH/MM3 (1.0-4.8); MEAN CELL VOLUME 88.6 FL (80.0-100.0); MEAN CORPUSCULAR HEMOGLOBIN 29.1 PG (27.0-34.0); MEAN CORPUSCULAR HGB CONC 32.8 % (32.0-36.0); MONO % 9.1 % (0.0-8.0); NEUT % 70.6 % (16.0-70.0); PLATELET COUNT 249 TH/MM3 (150-450); RED BLOOD COUNT 4.28 MIL/MM3 (4.50-5.90); RED CELL DISTRIBUTION WIDTH 17.9 % (11.6-17.2)
[2016-11-29 20:06] VITALS: BP 159/88; PULSE 96; RESP 18; O2SAT 99
--- NOTE | 2016-11-29 20:06 | RADRPT ---
EXAM DATE/TIME: 11/29/2016 19:41 [place] COMPARISON: CHEST SINGLE AP, November 21, 2016, 11:19. INDICATIONS : Chest pain MEDICAL HISTORY : Congestive heart failure. Seizures. Hypercholesterolemia. Hypertension SURGICAL HISTORY : External defibrillator ENCOUNTER: Initial ACUITY: 1 day PAIN SCORE: 7/10 LOCATION: Bilateral chest FINDINGS: The heart is enlarged. There is moderate interstitial edema present. Patchy air space disease is se en in both lungs, worse on the right than the left. CONCLUSION: Congestive failure with probable superimposed inflammatory process. Larry Sharma MD FACR on November 29, 2016 at 19:57 Board Certified Radiologist. This report was verified electronically.
[2016-11-29 20:08] LABS: APTT (PATIENT) 43.4 SEC (24.3-30.1); PROTHROMBIN TIME - PATIENT 80.7 SEC (9.8-11.6)
[2016-11-29 20:11] LABS: INTERNATIONAL NORMALIZED RATIO 6.7 RATIO
--- NOTE | 2016-11-29 20:17 | PD ---
HPI Chief Complaint: Chest Pain Time Seen by Provider: 19:19 Travel History International Travel<30 days: No Contact w/Intl Traveler<30days: No Traveled to known affect area: No History of Present Illness HPI 71-year-old male came to the emergency room brought by EMS with history of chest pain. Patient points the chest pains subcostal in a bandlike fashion. Denies any radiation of the pain. Says the pain has been there since yesterday and has been waxing and waning. No aggravating or relieving factors identified. He finds the pain as sharp and dull on occasions. No history of fever or chills. He has been nauseous but no vomiting. Patient has had cardiac issues and had an external defibrillator put in about 3-4 weeks ago. He was readmitted 2 weeks ago. No history of cardiac catheterization or stent placement. He supposed to see a cobol engineer next week. Patient was given 1 nitroglycerin. Currently he says his pain is 6 out of 10. He is on Coumadin as well. [facility] Past Medical History Narrative Medical List of his past medical, surgical, social and family history is reviewed from the nursing note. Hx Anticoagulant Therapy: Yes (COUMADIN) Arthritis: No Asthma: No Blood Disorders: No Anxiety: No Depression: Yes Heart Rhythm Problems: No Cancer: No Cardiac Catheterization: No Cardiovascular Problems: Yes (CHF) High Cholesterol: Yes Chemotherapy: No Chest Pain: Yes (ENDOCARDITITS) Congestive Heart Failure: Yes COPD: No Cerebrovascular Accident: Yes (MULTIPLE TIA) Coronary Artery Disease: Yes Diabetes: Yes (TYPE 2) Patient Takes Glucophage: Yes (11/29/2016 0700) Diminished Hearing: No Endocrine: Yes Gastrointestinal Disorders: Yes GERD: No Glaucoma: No Genitourinary: No Headaches: No Hepatitis: No Hiatal Hernia: No Hypertension: Yes Immune Disorder: No Kidney Stones: No Musculoskeletal: Yes Neurologic: Yes Psychiatric: No Reproductive: No Respiratory: Yes (HOME O2) Migraines: No Myocardial Infarction: Yes (mother) Radiation Therapy: No Renal Failure: No Seizures: Yes (20 YEARS AGO W/ TIAS) Sickle Cell Disease: No Sleep Apnea: No Thyroid Disease: No Ulcer: No Tetanus Vaccination: Unknown Influenza Vaccination: Yes PNEUMOCCOCAL Vaccine (Year): 2007 Past Surgical History AICD: No Appendectomy: Yes Arteriovenous Shunt: No Body Medical Devices: TIERRA IN NECK Cardiac Surgery: No Cholecystectomy: Yes (pt is unsure) Coronary Artery Bypass Graft: No Ear Surgery: No Endocrine Surgery: No Eye Surgery: No Genitourinary Surgery: No Gynecologic Surgery: No Insulin Pump: No Joint Replacement: No Neurologic Surgery: No Oral Surgery: No Pacemaker: No Thoracic Surgery: Yes (COLLAPSED LUNG) Other Surgery: Yes (6 back & neck & knee surgery/ eder/) Social History Alcohol Use: No Tobacco Use: No Substance Use: No (PT STATES 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 Reported Meds & Prescriptions Reported Meds & Active Scripts Active Hydroxyzine HCl 25 Mg Tab 25 Mg PO QID PRN Famotidine 20 Mg Tab 20 Mg PO BID Coumadin (Warfarin) 7.5 Mg Tab 7.5 Mg PO DAILY@16 Isosorbide Mononitrate ER (Isosorbide Mononitrate) 30 Mg Ranulfo 30 Mg PO DAILY@07 Furosemide 40 Mg Tab 40 Mg PO DAILY Lisinopril 5 Mg Tab 5 Mg PO DAILY Coreg (Carvedilol) 3.125 Mg Tab 3.125 Mg PO Q12HR Reported Tramadol (Tramadol HCl) 50 Mg Tab 50 Mg PO Q6H PRN Aspirin 81 Mg Chew 81 Mg CHEW DAILY Metformin (Metformin HCl) 500 Mg Tab 500 Mg PO DAILY With a meal Narrative Medication List of his home medications reviewed from the nursing note. Review of Systems Except as stated in HPI: all other systems reviewed are Neg Physical Exam Narrative GENERAL: Awake, alert, mild distress SKIN: Focused skin assessment warm/dry. External defibrillator HEAD: Atraumatic. Normocephalic. EYES: Pupils equal and round. No scleral icterus. No injection or drainage. ENT: No nasal bleeding or discharge. Mucous membranes pink and moist. NECK: Trachea midline. No JVD. CARDIOVASCULAR: Regular rate and rhythm. No murmur appreciated. RESPIRATORY: No accessory muscle use. Clear to auscultation. Breath sounds equal bilaterally. GASTROINTESTINAL: Abdomen soft, tender over the right upper quadrant, nondistended. Hepatic and splenic margins not palpable. MUSCULOSKELETAL: No obvious deformities. No clubbing. No cyanosis. No edema. NEUROLOGICAL: Awake and alert. No obvious cranial nerve deficits. Motor grossly within normal limits. Normal speech. PSYCHIATRIC: Appropriate mood and affect; insight and judgment normal. Data Data Last Documented VS Vital Signs Date Time Temp Pulse Resp B/P Pulse Ox O2 Delivery O2 Flow Rate FiO2 11/29/16 21:45 94 18 116/82 98 11/29/16 21:02 Room Air 11/29/16 19:13 98.2 Orders Electrocardiogram (11/29/16 19:29) Basic Metabolic Panel (Bmp) (11/29/16 19:29) Ckmb (Isoenzyme) Profile (11/29/16 19:29) Complete Blood Count With Diff (11/29/16 19:29) Magnesium (Mg) (11/29/16 19:29) Prothrombin Time / Inr (Pt) (11/29/16 19:29) Act Partial Throm Time (Ptt) (11/29/16 19:29) Troponin I (11/29/16 19:29) Lipase (11/29/16 19:29) Chest, Single Ap (11/29/16 19:29) Ecg Monitoring (11/29/16 19:29) Bilateral Bp Monitoring (11/29/16 19:29) Iv Access Insert/Monitor (11/29/16 19:29) Oximetry (11/29/16 19:29) Oxygen Administration (11/29/16 19:29) Sodium Chloride 0.9% Flush (Ns Flush) (11/29/16 19:30) Ed Poc Ultrasound (11/29/16 ) Fentanyl Inj (Fentanyl Inj) (11/29/16 20:30) CKMB (11/29/16 19:30) CKMB% (11/29/16 19:30) Labs Laboratory Tests Test 11/29/16 19:30 White Blood Count 6.0 TH/MM3 Red Blood Count 4.28 MIL/MM3 Hemoglobin 12.5 GM/DL Hematocrit 37.9 % Mean Corpuscular Volume 88.6 FL Mean Corpuscular Hemoglobin 29.1 PG Mean Corpuscular Hemoglobin 32.8 % Concent Red Cell Distribution Width 17.9 % Platelet Count 249 TH/MM3 Mean Platelet Volume 8.8 FL Neutrophils (%) (Auto) 70.6 % Lymphocytes (%) (Auto) 18.9 % Monocytes (%) (Auto) 9.1 % Eosinophils (%) (Auto) 0.8 % Basophils (%) (Auto) 0.6 % Neutrophils # (Auto) 4.2 TH/MM3 Lymphocytes # (Auto) 1.1 TH/MM3 Monocytes # (Auto) 0.5 TH/MM3 Eosinophils # (Auto) 0.0 TH/MM3 Basophils # (Auto) 0.0 TH/MM3 CBC Comment DIFF FINAL Differential Comment Prothrombin Time 80.7 SEC Prothromb Time International 6.7 RATIO Ratio Activated Partial 43.4 SEC Thromboplast Time Sodium Level 136 MEQ/L Potassium Level 5.0 MEQ/L Chloride Level 103 MEQ/L Carbon Dioxide Level 25.0 MEQ/L Anion Gap 8 MEQ/L Blood Urea Nitrogen 14 MG/DL Creatinine 0.89 MG/DL Estimat Glomerular Filtration 85 ML/MIN Rate Random Glucose 208 MG/DL Calcium Level 8.3 MG/DL Magnesium Level 1.7 MG/DL Total Creatine Kinase 103 U/L Creatine Kinase MB 2.1 NG/ML Troponin I 0.03 NG/ML Lipase 311 U/L [facility] Medical Decision Making Medical Screen Exam Complete: Yes Emergency Medical Condition: Yes Medical Record Reviewed: Yes Interpretation(s) Twelve-lead EKG was reviewed by me. Normal sinus rhythm, left axis deviation, old anterior and inferior OK, normal axis, poor R-wave progression, nonspecific ST-T wave changes, tachycardia. Heart rate of 100 bpm. Differential Diagnosis ACS, acute cholecystitis, chronic chest pain Narrative Course 8:17 PM awaiting for the blood test results. I will do a bedside ultrasound to look for the gallbladder. Patient is not sure whether his gallbladder is in or out. I did not notice any scars of cholecystectomy. 9:07 PM blood test results are back. His INR is elevated. However rest of the blood test results are okay. I looked at his past medical record and he had a cardiac catheterization last time. He did not show any coronary artery disease but nonischemic cardiomyopathy. Given this I'll discharge the patient home. He will need to hold his Coumadin dose for the next 2 nights. And then follow- up with his primary care. Previous imaging did show prior cholecystectomy with stones in the GB fossa. Patient was told about this as per the documentation. Procedures EKG Prior to Arrival: No Diagnosis Primary Impression: Chronic pain Qualified Code: G89.29 - Other chronic pain Additional Impression: Supratherapeutic INR Referrals: Primary Care Physician 2 days Additional Instructions: Please return to the ER if the condition worsens or any other new concerns. Otherwise follow-up with your primary care in couple days. Follow-up with your cobol engineer as well. Do not take the next tonight doses of her Coumadin since your INR was very high. Have the INR checked on Thursday. Med/Other Pt SpecificInfo: Existing Med Changed (stop next 2 doses of Coumadin and repeat INR after 2 days) Disposition: 01 DISCHARGE HOME Condition: Stable Lincoln Briones MD November 29, 2016 20:17
[2016-11-29 20:30] LABS: ANION GAP 8 MEQ/L (5-15); BLOOD UREA NITROGEN 14 MG/DL (7-18); CHLORIDE 103 MEQ/L (98-107); CREATINE KINASE 103 U/L (39-308); GLOMERULAR FILTRATION RATE 85 ML/MIN (>89); MAGNESIUM 1.7 MG/DL (1.5-2.5); SODIUM (NA) 136 MEQ/L (136-145)
[2016-11-29 20:44] LABS: CKMB 2.1 NG/ML (0.5-3.6)
[2016-11-29 21:02] VITALS: BP_SYST 121; BP_SYST 122; BP_DIAS 68; BP_DIAS 77; PULSE 97; RESP 18; O2SAT 98
[2016-11-29 21:45] VITALS: BP 116/82
--- NOTE | 2016-11-30 14:17 | EKG ---
Date Performed: 11/29/2016 Time Performed: 19:12:58 PTAGE: 71 years EKG: SINUS TACHYCARDIA MARKED LEFT AXIS DEVIATION NONSPECIFIC ST & T-WAVE ABNORMALITY ABNORMAL E CG PREVIOUS TRACING 11/21/2016 19.42.42 Since previous tracing, no significant change noted DOCTOR: Duke Veronica Interpretating Date/Time 11/30/2016 14:17:21
== END 2016-11-29 21:56 | disposition home or self-care (01) ==
LOC: NEPE 19:10
DX: G89.29 Other chronic pain (principal); R94.31 Abnormal electrocardiogram [ECG] [EKG]; R79.1 Abnormal coagulation profile; I50.9 Heart failure, unspecified; E11.9 Type 2 diabetes mellitus without complications; I10 Essential (primary) hypertension; Z79.01 Long term (current) use of anticoagulants
CPT/HCPCS: 71010; 80048; 82550; 82552; 83690; 83735; 84484; 85025; 85610; 85730; 93005; 96374; 99285; J3010

== ENCOUNTER 2016-12-03 08:28 | Inpatient (IN) | payer MEDICARE ==
[2016-12-03] VITALS (10 sets, daily range): BP systolic 108–147; BP diastolic 73–96; PULSE 94–119; RESP 16–21; TEMP 96.7–98.3; O2SAT 91–100
[~2016-12-03] VITALS: Ht 182.9 cm; Wt 75.1 kg
[~2016-12-03 08:28] MED LIST changes: -ASPI1TAB69 PO; +ASPI81CH CHEW; -CARV6.25 PO; -COUM5TAB PO; -FURO20TA PO; +TRAM50TA PO; -ULTR50TA5 PO
[2016-12-03] MEDS ORDERED: SODIUM CHLORIDE 0.9% FLUSH 10 ML FLUSH IVF PRN (08:45)
--- NOTE | 2016-12-03 08:57 | PD ---
HPI Chief Complaint: Cardiac Complaint Time Seen by Provider: 08:37 Travel History International Travel<30 days: No Contact w/Intl Traveler<30days: No Traveled to known affect area: No History of Present Illness HPI Patient is a 71-year-old male with a history of IV drug use and antiphospholipid syndrome pulmonary embolism and CHF with EF of 15% wears an external defibrillator presents to the emergency Department with acute on chronic shortness of breath and sharp chest pain. Patient states that he's been having some shortness of breath since last night and found it very difficult to sleep last night. He states he woke up and panic and was able to doze off several times in his chair but ultimately started getting shortness of breath and decided to come in and be seen. He states that his pain was very severe when he first called 911 but by the time EMS had arrived his pain was somewhat better. Review the patient's records shows that his been admitted multiple times recently for similar. He had a nuclear medicine stress test in July of this year which was high risk. Per patient's recent consultation with Dr. Henry patient's myocardial perfusion study showed fixed defect without reversible ischemia. He had a cardiac catheterization on November 24, 2016 which showed several lesions including a 60% LAD midsegment, 70% OM 2, PDA "diffusely diseased" worse lesion was 50%, RCA mid segments 70%, ramus which is diffusely diseased. PFSH Past Medical History Hx Anticoagulant Therapy: Yes (COUMADIN) Arthritis: No Asthma: No Blood Disorders: No Anxiety: No Depression: Yes Heart Rhythm Problems: No Cancer: No Cardiac Catheterization: No High Cholesterol: Yes Chemotherapy: No Chest Pain: Yes (ENDOCARDITITS) Congestive Heart Failure: Yes COPD: No Cerebrovascular Accident: Yes (mini strokes) Coronary Artery Disease: Yes Diabetes: Yes Patient Takes Glucophage: Yes Diminished Hearing: No Endocrine: Yes Gastrointestinal Disorders: Yes GERD: No Glaucoma: No Genitourinary: No Headaches: No Hepatitis: No Hiatal Hernia: No Heparin Induced Thrombocytopen: No Hypertension: Yes Immune Disorder: No Implanted Vascular Access Dvce: No Kidney Stones: No Musculoskeletal: Yes Neurologic: Yes Psychiatric: No Reproductive: No Respiratory: Yes (HOME O2) Migraines: No Myocardial Infarction: Yes (mother) Radiation Therapy: No Renal Failure: No Seizures: Yes (20 YEARS AGO W/ TIAS) Sickle Cell Disease: No Sleep Apnea: No Thyroid Disease: No Ulcer: No Tetanus Vaccination: Unknown PNEUMOCCOCAL Vaccine (Year): 2007 Past Surgical History AICD: No Appendectomy: Yes Arteriovenous Shunt: No Body Medical Devices: TIERRA IN NECK Cardiac Surgery: No Cholecystectomy: Yes (pt is unsure) Coronary Artery Bypass Graft: No Ear Surgery: No Endocrine Surgery: No Eye Surgery: No Genitourinary Surgery: No Gynecologic Surgery: No Insulin Pump: No Joint Replacement: No Neurologic Surgery: No Oral Surgery: No Pacemaker: No Thoracic Surgery: Yes (COLLAPSED LUNG) Other Surgery: Yes (6 back & neck & knee surgery/ eder/) Family History Family Myocardial Infarction: No Social History Alcohol Use: No Tobacco Use: No Substance Use: No (PT STATES SOBER 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) Allergies-Medications (Allergen,Severity, Reaction): Coded Allergies: Morphine (Verified Allergy, Severe, Itching, 12/03/16) *MDRO Multi-Drug Resistant Organism (Verified Adverse Reaction, Unknown, ) 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/16 Reported Meds & Prescriptions Reported Meds & Active Scripts Active Hydroxyzine HCl 25 Mg Tab 25 Mg PO QID PRN Famotidine 20 Mg Tab 20 Mg PO BID Coumadin (Warfarin) 7.5 Mg Tab 7.5 Mg PO DAILY@16 Isosorbide Mononitrate ER (Isosorbide Mononitrate) 30 Mg Ranulfo 30 Mg PO DAILY@07 Furosemide 40 Mg Tab 40 Mg PO DAILY Lisinopril 5 Mg Tab 5 Mg PO DAILY Coreg (Carvedilol) 3.125 Mg Tab 3.125 Mg PO Q12HR Reported Tramadol (Tramadol HCl) 50 Mg Tab 50 Mg PO Q6H PRN Aspirin 81 Mg Chew 81 Mg CHEW DAILY Metformin (Metformin HCl) 500 Mg Tab 500 Mg PO DAILY With a meal Review of Systems Except as stated in HPI: all other systems reviewed are Neg Physical Exam Narrative GENERAL: Well-developed well-nourished in no obvious distress.] SKIN: Focused skin assessment warm/dry. HEAD: Atraumatic. Normocephalic. EYES: Pupils equal and round. No scleral icterus. No injection or drainage. ENT: No nasal bleeding or discharge. Mucous membranes pink and moist. NECK: Trachea midline. No JVD. CARDIOVASCULAR: Regular rate and rhythm. No murmur appreciated. 2+ bilateral equal pulses in all 4 extremities. RESPIRATORY: No accessory muscle use. Clear to auscultation. Breath sounds equal bilaterally. GASTROINTESTINAL: Abdomen soft, non-tender, nondistended. Hepatic and splenic margins not palpable. MUSCULOSKELETAL: No obvious deformities. No clubbing. No cyanosis. No edema. NEUROLOGICAL: Awake and alert. No obvious cranial nerve deficits. Motor grossly within normal limits. Normal speech. PSYCHIATRIC: Appropriate mood and affect; insight and judgment normal. Data Data Last Documented VS Vital Signs Date Time Temp Pulse Resp B/P Pulse Ox O2 Delivery O2 Flow Rate FiO2 12/03/16 08:53 100 98 Room Air 12/03/16 08:42 97.7 21 136/79 Orders Electrocardiogram (12/03/16 ) Electrocardiogram (12/03/16 08:37) B-Type Natriuretic Peptide (12/03/16 08:37) Ckmb (Isoenzyme) Profile (12/03/16 08:37) Complete Blood Count With Diff (12/03/16 08:37) Comprehensive Metabolic Panel (12/03/16 08:37) Magnesium (Mg) (12/03/16 08:37) Prothrombin Time / Inr (Pt) (12/03/16 08:37) Act Partial Throm Time (Ptt) (12/03/16 08:37) Troponin I (12/03/16 08:37) Chest, Single Ap (12/03/16 08:37) Ecg Monitoring (12/03/16 08:37) Iv Access Insert/Monitor (12/03/16 08:37) Oximetry (12/03/16 08:37) Oxygen Administration (12/03/16 08:37) Sodium Chloride 0.9% Flush (Ns Flush) (12/03/16 08:45) Admit Order (Ed Use Only) (12/03/16 ) Labs Laboratory Tests Test 12/03/16 08:50 White Blood Count 5.8 TH/MM3 Red Blood Count 4.48 MIL/MM3 Hemoglobin 12.8 GM/DL Hematocrit 39.3 % Mean Corpuscular Volume 87.7 FL Mean Corpuscular Hemoglobin 28.6 PG Mean Corpuscular Hemoglobin 32.5 % Concent Red Cell Distribution Width 18.1 % Platelet Count 259 TH/MM3 Mean Platelet Volume 8.8 FL Neutrophils (%) (Auto) 60.3 % Lymphocytes (%) (Auto) 26.6 % Monocytes (%) (Auto) 10.2 % Eosinophils (%) (Auto) 2.0 % Basophils (%) (Auto) 0.9 % Neutrophils # (Auto) 3.5 TH/MM3 Lymphocytes # (Auto) 1.5 TH/MM3 Monocytes # (Auto) 0.6 TH/MM3 Eosinophils # (Auto) 0.1 TH/MM3 Basophils # (Auto) 0.1 TH/MM3 CBC Comment DIFF FINAL Differential Comment Prothrombin Time 162.3 SEC Prothromb Time International 13.1 RATIO Ratio Activated Partial 50.1 SEC Thromboplast Time Sodium Level 136 MEQ/L Potassium Level 3.7 MEQ/L Chloride Level 100 MEQ/L Carbon Dioxide Level 28.6 MEQ/L Anion Gap 7 MEQ/L Blood Urea Nitrogen 26 MG/DL Creatinine 1.08 MG/DL Estimat Glomerular Filtration 68 ML/MIN Rate Random Glucose 261 MG/DL Calcium Level 8.7 MG/DL Magnesium Level 1.8 MG/DL Total Bilirubin 0.6 MG/DL Aspartate Amino Transf 37 U/L (AST/SGOT) Alanine Aminotransferase 113 U/L (ALT/SGPT) Alkaline Phosphatase 247 U/L Total Creatine Kinase 74 U/L Troponin I 0.03 NG/ML B-Type Natriuretic Peptide 2732 PG/ML Total Protein 6.9 GM/DL Albumin 3.3 GM/DL [facility] Medical Decision Making Medical Screen Exam Complete: Yes Emergency Medical Condition: Yes Interpretation(s) EKG shows sinus rhythm with left axis deviation and left anterior fascicular block. Abnormal R wave progression. Nonspecific T-wave abnormality without acute ST segment changes. This is an abnormal EKG. Comparison to 11/29/2016 shows no significant change. Differential Diagnosis CHF, ACS, CT, CAD. Narrative Course Patient was roomed in emergency department, his chest pressure is nearly resolved on arrival. As above his recent cardiac catheterization shows significant coronary artery disease. His INR is 13. Patient will therefore need admission to the hospital. Patient was discussed with Dr. Crane. We discussed briefly consideration for hospice consult given his chronic CHF. He remains hemodynamically stable while in the emergency department. Dr. Crane will give by mouth potassium. Patient is not having any overt bleeding at this time and does not meet criteria for rapid reversal. Diagnosis Primary Impression: Atypical chest pain Additional Impressions: CHF (congestive heart failure) Supratherapeutic INR Admitting Information Admitting Physician Requests: Observation Condition: Stable Vargas Lopez MD December 03, 2016 08:57
--- NOTE | 2016-12-03 09:25 | RADRPT ---
EXAM DATE/TIME: 12/03/2016 08:49 [facility] COMPARISON: CHEST SINGLE AP, November 21, 2016, 11:19. CHEST SINGLE AP, November 29, 2016, 19:41. INDICATIONS : Chest pain for a few days. MEDICAL HISTORY : Congestive heart failure. Seizures. Hypercholesterolemia. Hypertension. Endocarditis. IV drug use. MR [place]. SURGICAL HISTORY : Appendectomy. Cholecystectomy. Back surgery. ENCOUNTER: Initial ACUITY: 3 days PAIN SCORE: 4/10 LOCATION: Bilateral chest FINDINGS: Single AP view of the chest. Decreasing confluent right lower lung parenchymal opacity. Pulmonary vas culature is more distinct than on the comparison study. Cardiomediastinal silhouette unchanged. No ev idence of pleural effusion or pneumothorax. CONCLUSION: Interval resolution of pulmonary vascular congestion. Decrease in asymmetric parenchymal opacity at t he right lung base. Cornell Amaro MD on December 03, 2016 at 9:22 Board Certified Radiologist. This report was verified electronically.
[2016-12-03 09:45] LABS: AUTOMATED NEUTROPHIL # 3.5 TH/MM3 (1.8-7.7); BASOPHIL # 0.1 TH/MM3 (0-0.2); BASOPHIL % 0.9 % (0.0-2.0); EOSINOPHIL # 0.1 TH/MM3 (0-0.4); HEMATOCRIT 39.3 % (39.0-51.0); HEMO FLAGS DIFF FINAL; LYMPH % 26.6 % (9.0-44.0); LYMPHOCYTE # 1.5 TH/MM3 (1.0-4.8); MEAN CELL VOLUME 87.7 FL (80.0-100.0); MEAN CORPUSCULAR HEMOGLOBIN 28.6 PG (27.0-34.0); MEAN CORPUSCULAR HGB CONC 32.5 % (32.0-36.0); MONO % 10.2 % (0.0-8.0); NEUT % 60.3 % (16.0-70.0); PLATELET COUNT 259 TH/MM3 (150-450); RED BLOOD COUNT 4.48 MIL/MM3 (4.50-5.90); RED CELL DISTRIBUTION WIDTH 18.1 % (11.6-17.2); WHITE BLOOD COUNT 5.8 TH/MM3 (4.0-11.0)
[2016-12-03 09:56] LABS: APTT (PATIENT) 50.1 SEC (24.3-30.1); PROTHROMBIN TIME - PATIENT 162.3 SEC (9.8-11.6)
[2016-12-03 09:59] LABS: ANION GAP 7 MEQ/L (5-15); AST (GOT) 37 U/L (15-37); BICARBONATE 28.6 MEQ/L (21.0-32.0); BLOOD UREA NITROGEN 26 MG/DL (7-18); CHLORIDE 100 MEQ/L (98-107); GLOMERULAR FILTRATION RATE 68 ML/MIN (>89); MAGNESIUM 1.8 MG/DL (1.5-2.5); POTASSIUM 3.7 MEQ/L (3.5-5.1); SODIUM (NA) 136 MEQ/L (136-145)
[2016-12-03 10:00] LABS: ALT (GPT) 113 U/L (12-78); INTERNATIONAL NORMALIZED RATIO 13.1 RATIO
[2016-12-03 10:04] LABS: ALKALINE PHOSPHATASE 247 U/L (45-117); TOTAL BILIRUBIN ADULT 0.6 MG/DL (0.2-1.0)
[2016-12-03 10:12] LABS: CREATINE KINASE 74 U/L (39-308)
[2016-12-03] MEDS ORDERED: SENNOSIDES 8.6 MG TAB PO PRN (11:15)
[2016-12-03] MEDS ORDERED: ACETAMINOPHEN 325 MG TAB PO PRN (11:15)
[2016-12-03] MEDS ORDERED: SODIUM CHLORIDE 0.9% FLUSH 10 ML FLUSH IV FLUSH PRN (11:15)
[2016-12-03] MEDS ORDERED: ONDANSETRON HCL 4 MG/2 ML VIAL IVP PRN (11:15)
[2016-12-03] MEDS ORDERED: traMADol HCL 50 MG TAB PO PRN (11:15)
[2016-12-03] MEDS ORDERED: LACTULOSE SYRUP 20 GM/30 ML CUP PO PRN (11:15)
[2016-12-03] MEDS ORDERED: BISACODYL 10 MG SUPP RECTAL PRN (11:15)
[2016-12-03] MEDS ORDERED: NALOXONE HCL 0.4 MG/ML AMP IV PRN (11:15)
[2016-12-03] MEDS ORDERED: MAGNESIUM HYDROXIDE SUSP 30 ML CUP PO PRN (11:15)
[2016-12-03] MEDS ORDERED: hydrOXYzine HCL 25 MG TAB PO PRN (11:15)
--- NOTE | 2016-12-03 11:22 | HHI.HP ---
[facility] Kwesi Joseph MD Admission Diagnosis Chest pain, Supertherapeutic INR Diagnoses: Chief Complaint: Shortness of breath, chest discomfort. Travel History International Travel<30 Days: No Contact w/Intl Traveler <30 Da: No Traveled to Known Affected Are: No History of Present Illness Mr. Lucio is a pleasant 71-year-old male with a history of nonischemic cardiomyopathy (ejection fraction 15%), diabetes mellitus, antiphospholipid syndrome, pulmonary embolism who presents to emergency department due to shortness of breath and chest pain with breathing. Patient reports orthopnea, nausea but no vomiting and diaphoresis. For about last 3 months patient has been having more shortness of breath and gradually worsening. Since yesterday afternoon patient has been experiencing chest pain with breathing as well as worsening shortness of breath. He used to walk a lot along the beach. However in the last 3 months he has been unable to walk as much and now he can barely walk even a short distance without getting short of breath. Due to orthopnea he has been unable to sleep in bed and also feels anxious. He denies any cough, fever or chills. He denies any lower extremity swelling. Denies any changes in bladder or bowel habits. He currently has a LifeVest. He has a follow-up appointment with insurance verifier Dr. Henry on 12/10/2016. Review of Systems Except as stated in HPI: all other systems reviewed are Neg Past Family Social History Past Medical History Non ischemic cardiomyopathy DM type 2 Anti-phospholipid syndrome Pulmonary embolism Past Surgical History Six back and neck surgery Lung surgery after collapsed lung Reported Medications Hydroxyzine HCl 25 Mg Tab 25 Mg PO QID PRN Famotidine 20 Mg Tab 20 Mg PO BID Coumadin (Warfarin) 7.5 Mg Tab 7.5 Mg PO DAILY@16 Isosorbide Mononitrate ER (Isosorbide Mononitrate) 30 Mg Ranulfo 30 Mg PO DAILY@07 Furosemide 40 Mg Tab 40 Mg PO DAILY Lisinopril 5 Mg Tab 5 Mg PO DAILY Coreg (Carvedilol) 3.125 Mg Tab 3.125 Mg PO Q12HR Reported Tramadol (Tramadol HCl) 50 Mg Tab 50 Mg PO Q6H PRN Aspirin 81 Mg Chew 81 Mg CHEW DAILY Metformin (Metformin HCl) 500 Mg Tab 500 Mg PO DAILY With a meal Allergies: Coded Allergies: Morphine (Verified Allergy, Severe, Itching, 12/03/16) *MDRO Multi-Drug Resistant Organism (Verified Adverse Reaction, Unknown, ) 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/16 Family History Mom - CHF Father - from Liver cancer Sister - Type 1 DM Social History Quit smoking 30 years ago. Quit drinking 10 years ago. Last IV drug use 7 months ago. IVDU history of 7-10 years. Smokes marijuana sometimes. Physical Exam Vital Signs Vital Signs Date Time Temp Pulse Resp B/P Pulse Ox O2 Delivery O2 Flow Rate FiO2 12/03/16 11:16 98 21 123/79 98 Room Air 12/03/16 08:53 100 98 Room Air 12/03/16 08:42 97.7 100 21 136/79 98 Room Air 12/03/16 08:42 97.7 100 21 136/79 98 Room Air 12/03/16 08:42 98 Room Air 12/03/16 08:37 97.7 102 21 136/79 98 Physical Exam GENERAL: This is a well-nourished, well-developed patient, in no apparent distress. SKIN: No rashes, ecchymoses or lesions. Warm and dry. HEAD: Atraumatic. Normocephalic. No temporal or scalp tenderness. EYES: Pupils equal round and reactive. No injection or drainage. ENT: Nose without bleeding, purulent drainage or septal hematoma. Airway patent. NECK: Trachea midline. No lymphadenopathy. Supple, nontender, no meningeal signs. CARDIOVASCULAR: Regular rhythm, mildly tachycardic without murmurs, gallops, or rubs. No JVD. RESPIRATORY: Moderate air entry, diminished breath sound in the bibasilar area. GASTROINTESTINAL: Abdomen soft, non-tender, nondistended. No guarding. MUSCULOSKELETAL: Extremities without clubbing, cyanosis. No lower extremity edema. NEUROLOGICAL: Awake and alert. Cranial nerves II through XII intact. No focal neurological deficits. Normal speech. Laboratory Laboratory Tests Test 12/03/16 08:50 White Blood Count 5.8 Red Blood Count 4.48 Hemoglobin 12.8 Hematocrit 39.3 Mean Corpuscular Volume 87.7 Mean Corpuscular Hemoglobin 28.6 Mean Corpuscular Hemoglobin 32.5 Concent Red Cell Distribution Width 18.1 Platelet Count 259 Mean Platelet Volume 8.8 Neutrophils (%) (Auto) 60.3 Lymphocytes (%) (Auto) 26.6 Monocytes (%) (Auto) 10.2 Eosinophils (%) (Auto) 2.0 Basophils (%) (Auto) 0.9 Neutrophils # (Auto) 3.5 Lymphocytes # (Auto) 1.5 Monocytes # (Auto) 0.6 Eosinophils # (Auto) 0.1 Basophils # (Auto) 0.1 CBC Comment DIFF FINAL Differential Comment Prothrombin Time 162.3 Prothromb Time International 13.1 Ratio Activated Partial 50.1 Thromboplast Time Sodium Level 136 Potassium Level 3.7 Chloride Level 100 Carbon Dioxide Level 28.6 Anion Gap 7 Blood Urea Nitrogen 26 Creatinine 1.08 Estimat Glomerular Filtration 68 Rate Random Glucose 261 Calcium Level 8.7 Magnesium Level 1.8 Total Bilirubin 0.6 Aspartate Amino Transf 37 (AST/SGOT) Alanine Aminotransferase 113 (ALT/SGPT) Alkaline Phosphatase 247 Total Creatine Kinase 74 Troponin I 0.03 B-Type Natriuretic Peptide 2732 Total Protein 6.9 Albumin 3.3 Result Diagram: 12/03/16 0850 12/03/16 0850 Imaging Last Impressions Chest X-Ray 12/03/16 0837 Signed Impressions: Service Date/Time: Saturday, December 03, 2016 08:49 - CONCLUSION: Interval resolution of pulmonary vascular congestion. Decrease in asymmetric parenchymal opacity at the right lung base. Cornell Amaro MD Assessment and Plan Problem List: (1) Acute exacerbation of CHF (congestive heart failure) ICD Code: I50.9 Status: Acute (2) Non-ischemic cardiomyopathy ICD Code: I42.8 Status: Acute (3) Supratherapeutic INR ICD Code: R79.1 Status: Acute (4) Pulmonary embolism ICD Code: I26.99 Status: Chronic (5) Anti-phospholipid antibody syndrome ICD Code: D68.61 Status: Chronic (6) DM2 (diabetes mellitus, type 2) ICD Code: E11.9 Status: Chronic Assessment and Plan Mr. Lucio is a pleasant 71-year-old male with a history of pulmonary embolism, nonischemic cardiomyopathy with ejection fraction 15% who presents to the emergency department due to worsening shortness of breath, chest pain with breathing, orthopnea. - Acute exacerbation of systolic congestive heart failure - Non-ischemic Cardiomyopathy (EF 15%). - BNP 2732. CXR reviewed by me shows cardiomegaly. - Status post cardiac catheterization on 11/24/2016 --> no CAD. Ejection fraction 15%. - Patient currently has LifeVest and is being managed by insurance verifier Dr. Henry. - Start Lasix IV 40 mg every 12 hours. KCL 10meQ BID. We'll consider torsemide 20 mg twice a day on discharge. - Will start patient on Spironolactone 25mg Qday. Continue lisinopril 5 mg daily, carvedilol 3.125 mg every 12 hours. - Discussed with patient - he is open to discussing with palliative care team. He understands that his prognosis is poor. - Pleuritic chest pain - likely due to congestive heart failure. - Increase isosorbide mononitrate from 30 mg to 60 mg daily. - Check troponins total of 3 times. - Recent history of pulmonary embolism - History of antiphospholipid syndrome - Supratherapeutic INR 13.1 today. No obvious bleeding. She is hemodynamically stable. - Patient is on warfarin 7.5 mg daily. Continue to hold warfarin for now. - INR 13.1. We'll give patient vitamin K by mouth 5 mg 1 time. Recheck INR in the morning. - Diabetes mellitus type 2 - Start Levemir 10 units daily at bedtime and sliding scale insulin. - Anxiety - Patient does not take hydroxyzine at home. We'll start patient on clonazepam 0.5 mg every 8 hours when necessary. - History of IV Drug abuse - no IVDU in the last 7-8 months. Full code. Supratherapeutic INR 13.1 on warfarin. Jeferson Crane DO December 03, 2016 11:22 am
[2016-12-03] MEDS ORDERED: DEXTROSE 50% IN WATER 50 ML VIAL(D50) IV PRN (11:30)
[2016-12-03] MEDS ORDERED: GLUCAGON 1 MG/ML VIAL OTHER PRN (11:30)
[2016-12-03] MEDS ORDERED: FUROSEMIDE 40 MG/4 ML VIAL IV PUSH ONE (12:00)
[2016-12-03] MEDS ORDERED: PHYTONADIONE 5 MG TAB PO ONE (12:00)
[2016-12-03] MEDS: clonazePAM 0.5 MG TAB PO PRN ×2 (12:16→21:31)
[2016-12-03] MEDS ORDERED: SPIRONOLACTONE 25 MG TAB PO ONE (13:00)
[2016-12-03] MEDS: INSULIN ASPART SUPPLEMENTAL SCALE SQ SCH ×2 (16:00→21:27)
--- NOTE | 2016-12-03 17:15 | PD.CONS ---
Consult Service Palliative Care Consult Requested By Dr. Crane Primary Care Physician Kwesi Joseph MD Reason for Consultation a. To assist with evaluation and management of symptoms including:dyspnea, pain b. To assist medical decision maker(s) with: better understanding of current medical conditions; weighing benefits/burdens of medical treatment options; making medical treatment decisions. HPI History of Present Illness 71-year-old with past medical history significant for CHF(EF 15%), PE (on Coumadin), hypertension, hyperlipidemia, DM, IVDU, anxiety, depression. He has had multiple hospitalization relating to his cardiac history and associated symptoms. Last hospitalization was from November 21, 2016 to November 25, 2016 where patient came in for chest pain, elevated INR, and CHF. During that hospitalization patient was ruled out for TX, and aspirin, Leandro, beta harshal, nitrates were given. Cardiac catheterization 11/24/2016 revealed nonischemic cardiomyopathy with severe LV dysfunction.Showed several lesions including a 60 % LAD midsegment, 70% OM 2, PDA "diffusely diseased" worse lesion was 50%, RCA mid segments 70%, ramus which is diffusely diseased. 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 Patient was treated with diuretics for elevated BNP. Patient was stable enough to be discharged home. Patient has an external defibrillator/life vest. Patient return to the ER 11/29/2016 and was brought to the ER by EMS. Patient again have chest. ER physician reviewed the patient's chart and found that he had a recent catheterization that shows nonischemic cardiomyopathy. Troponin I was not elevated. Chest x-ray showed congestive failure with probable superimposed inflammatory process. Patient was stabilized and was discharged home. For current hospitalization patient return to for the 2nd time to the ER for chest pain and shortness of breath on 12/03/2016. Patient reports orthopnea and cannot sleep for the past few days. He described associated nausea. * Temperature is 97.7, pulse is 102, respirations 21, blood pressure is 137/79, pulse ox is 98%.\\ * Sodium is 136, potassium 3.7, chloride is 100, bicarbonate was 28.6, BUN 26, creatinine 18 is 1.08 * AST 37, ALTs 113, alkaline phosphatase is 247 * Troponin is 0.03. Second set 0.03 * BNP is 2732 * PTT is 162.3, INR is 13.1, PTT is 50.1. * Chest x-ray shows interval resolution of pulmonary vascular congestion. There is decrease asymmetrical parenchymal opacity at the right lung base. * Patient is admitted to hospitalist service. Patient given Lasix, spironolactone, continue lisinopril, carvedilol. * Palliative care was consulted to review goals of care. On my visit patient was sleeping, appears more comfortable. He endorses he has no chest pain right now and very appreciative that he is able to sleep. I introduced myself, and discuss the function of palliative care, reviewed patient's previous hospitalizations, and current cardiac condition. He was very surprised, to find out that his cardiac function is so low and prognosis is poor. Discuss advanced directives, DNR status, and introduced concept of hospice with patient. He is appreciative of my visit, and says "although this is not the answer to the questions I want, he is appreciative of the answers." Currently in terms of goals of care. = He will contact his son, who he has been estranged from, and ask if he is willing to serve as HCS. ( Health care surrogate form left with patient) = He will weigh the risk and benefits of intubation, cpr, life support tonight. I have reviewed with patient, that life support does not fix his underlying cardiomyopathy, but, likely for his case prolong the dying process, more so than saving him. =He has a hx of IVDU (meth and cocaine), although he says he has not done it for 7 months. It is unlikely he is a cardiac transplant candidate even if offered. He understands with his EF at 15%, multiple hospitalization; he would meet hospice criteria and would consider hospice. I will f/u tomorrow. =He welcomes palliative secondary social studies teacher support. =For the time being, he wants to remain a full code, and continue maximal medical therapy. Function/Cognitive Trajectory last 3 months patient has been having more shortness of breath and gradually worsening. Since yesterday afternoon patient has been experiencing chest pain with breathing as well as worsening shortness of breath. He used to walk [place] lot along the beach. However in the last 3 months he has been unable to walk as much and now he can barely walk even a short distance without getting short of breath. Due to orthopnea he has been unable to sleep in bed and also feels anxious. Review of Systems Constitutional: COMPLAINS OF: Fatigue Cardiovascular: COMPLAINS OF: Chest pain, Dyspnea on Exertion, Orthopnea Gastrointestinal: COMPLAINS OF: Nausea Genitourinary: COMPLAINS OF: Sexual dysfunction Past Family Social History Coded Allergies: Morphine (Verified Allergy, Severe, Itching, 12/03/16) *MDRO Multi-Drug Resistant Organism (Verified Adverse Reaction, Unknown, ) 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/16 Past Medical History Non ischemic cardiomyopathy DM type 2 Anti-phospholipid syndrome Pulmonary embolism Past Surgical History Six back and neck surgery Lung surgery after collapsed lung Reported Medications Tramadol (Tramadol HCl) 50 Mg Tab 50 Mg PO Q6H PRN Aspirin 81 Mg Chew 81 Mg CHEW DAILY Metformin (Metformin HCl) 500 Mg Tab 500 Mg PO DAILY With a meal Current Medications Medications (Trade) Dose Ordered Sig/Keiko Route Start Time Stop Time Status Last Admin (NS Flush) 2 ml UNSCH PRN IV FLUSH 12/03/16 11:15 (NS Flush) 2 ml BID IV FLUSH 12/03/16 21:00 (Tylenol) 650 mg Q4H PRN PO 12/03/16 11:15 (Zofran Inj) 4 mg Q6H PRN IVP 12/03/16 11:15 (Restoril) 15 mg HS PRN PO 12/03/16 21:00 (Narcan Inj) 0.4 mg UNSCH PRN IV 12/03/16 11:15 (Mela-Colace) 1 tab BID PO 12/03/16 21:00 (Milk Of Magnesia Liq) 30 ml Q12H PRN PO 12/03/16 11:15 (Senokot) 17.2 mg Q12H PRN PO 12/03/16 11:15 (Dulcolax Supp) 10 mg DAILY PRN RECTAL 12/03/16 11:15 (Lactulose Liq) 30 ml DAILY PRN PO 12/03/16 11:15 (Coreg) 3.125 mg Q12HR PO 12/03/16 21:00 (Pepcid) 20 mg BID PO 12/03/16 21:00 (Prinivil) 5 mg DAILY PO 12/04/16 09:00 (Ultram) 50 mg Q6H PRN PO 12/03/16 11:15 (Levemir Inj) 10 units HS SQ 12/03/16 21:00 (D50w (Vial) Inj) 50 ml UNSCH PRN IV 12/03/16 11:30 (Glucagon Inj) 1 mg UNSCH PRN OTHER 12/03/16 11:30 (Lasix Inj) 40 mg BID@09,18 IV PUSH 12/03/16 18:00 (KlonoPIN) 0.5 mg Q8HR PRN PO 12/03/16 11:45 12/03/16 12:16 (Imdur) 60 mg DAILY@07 PO 12/04/16 07:00 (KCl) 10 meq Q12HR PO 12/03/16 21:00 (Aldactone) 25 mg DAILY PO 12/04/16 09:00 Family History Mom - CHF Father - from Liver cancer Sister - Type 1 DM Substance Use Tobacco:denies,he states he know only smokes MJ Alcohol:denies Prescription med abuse:denies Illicits:IVDU meth and cocaine. Stop 7 months ago Psychosocial History Lives with a friend and his elderly father. . not working, but use to be in [employer] and [employer] business. 1 child Arnie Lucio, estranged for 3 years for which he wants to reconnect. 1 sister Christine Spence. 1 brother. Spiritual/Cultural Factors pretestant Living Will: Never completed Health Care Surrogate: Never completed Durable Power of Police [employer]: Never completed Physical Exam Vital Signs Date Time Temp Pulse Resp B/P Pulse Ox O2 Delivery O2 Flow Rate FiO2 12/03/16 14:44 98 20 126/73 99 Room Air 12/03/16 13:00 98 99 12/03/16 11:49 100 21 12/03/16 11:16 98 21 123/79 98 Room Air 12/03/16 08:53 100 98 Room Air 12/03/16 08:42 97.7 100 21 136/79 98 Room Air 12/03/16 08:42 97.7 100 21 136/79 98 Room Air 12/03/16 08:42 98 Room Air 12/03/16 08:37 97.7 102 21 136/79 98 Exam CONSTITUTIONAL/GENERAL: This is an adequately nourished patient, in no apparent distress. TUBES/LINES/DRAINS:piv SKIN: No jaundice, rashes, or lesions. Ecchymoses on upper extremities. No wounds seen anteriorly. Skin temperature appropriate. Not diaphoretic. HEAD: Atraumatic. Normocephalic. EYES: Pupils equal and round and reactive. Extraocular motions intact. No scleral icterus. No injection or drainage. Fundi not examined. ENT: Hearing grossly normal. Nose without bleeding or purulent drainage. Throat without visible erythema, exudates, masses, or lesions. NECK: Trachea midline. Supple, nontender. No palpable thyroid enlargement or nodularity. CARDIOVASCULAR: Regular rate and rhythm without murmurs, gallops, or rubs. No JVD. Peripheral pulses symmetric. RESPIRATORY/CHEST: Symmetric, unlabored respirations. Clear to auscultation. No wheezes, rales, or rhonchi. GASTROINTESTINAL: Abdomen soft, non-tender, nondistended. No hepato-splenomegaly , or palpable masses. No guarding. Bowel sounds present. GENITOURINARY: Without palpable bladder distension. Fine catheter in place. MUSCULOSKELETAL: Extremities without clubbing, cyanosis, or edema. No joint tenderness or effusion noted. No calf tenderness. No mottling or clubbing. LYMPHATICS: No palpable cervical or supraclavicular adenopathy. NEUROLOGICAL: Awake and alert. Motor and sensory grossly within normal limits. Follows commands. Cognitively sharp. Moves all extremities. PSYCHIATRIC: No obvious anxiety/depression. no apparent hallucinations or other psychotic thought process. Diagnostic Tests Laboratory Laboratory Tests Test 12/03/16 12/03/16 08:50 12:01 White Blood Count 5.8 TH/MM3 (4.0-11.0) Red Blood Count 4.48 MIL/MM3 (4.50-5.90) Hemoglobin 12.8 GM/DL (13.0-17.0) Hematocrit 39.3 % (39.0-51.0) Mean Corpuscular Volume 87.7 FL (80.0-100.0) Mean Corpuscular Hemoglobin 28.6 PG (27.0-34.0) Mean Corpuscular Hemoglobin 32.5 % Concent (32.0-36.0) Red Cell Distribution Width 18.1 % (11.6-17.2) Platelet Count 259 TH/MM3 (150-450) Mean Platelet Volume 8.8 FL (7.0-11.0) Neutrophils (%) (Auto) 60.3 % (16.0-70.0) Lymphocytes (%) (Auto) 26.6 % (9.0-44.0) Monocytes (%) (Auto) 10.2 % (0.0-8.0) Eosinophils (%) (Auto) 2.0 % (0.0-4.0) Basophils (%) (Auto) 0.9 % (0.0-2.0) Neutrophils # (Auto) 3.5 TH/MM3 (1.8-7.7) Lymphocytes # (Auto) 1.5 TH/MM3 (1.0-4.8) Monocytes # (Auto) 0.6 TH/MM3 (0-0.9) Eosinophils # (Auto) 0.1 TH/MM3 (0-0.4) Basophils # (Auto) 0.1 TH/MM3 (0-0.2) CBC Comment DIFF FINAL Differential Comment Prothrombin Time 162.3 SEC (9.8-11.6) Prothromb Time International 13.1 RATIO Ratio Activated Partial 50.1 SEC Thromboplast Time (24.3-30.1) Sodium Level 136 MEQ/L (136-145) Potassium Level 3.7 MEQ/L (3.5-5.1) Chloride Level 100 MEQ/L (98-107) Carbon Dioxide Level 28.6 MEQ/L (21.0-32.0) Anion Gap 7 MEQ/L (5-15) Blood Urea Nitrogen 26 MG/DL (7-18) Creatinine 1.08 MG/DL (0.60-1.30) Estimat Glomerular Filtration 68 ML/MIN (>89) Rate Random Glucose 261 MG/DL (74-106) Calcium Level 8.7 MG/DL (8.5-10.1) Magnesium Level 1.8 MG/DL (1.5-2.5) Total Bilirubin 0.6 MG/DL (0.2-1.0) Aspartate Amino Transf 37 U/L (15-37) (AST/SGOT) Alanine Aminotransferase 113 U/L (12-78) (ALT/SGPT) Alkaline Phosphatase 247 U/L (45-117) Total Creatine Kinase 74 U/L (39-308) Troponin I 0.03 NG/ML 0.03 NG/ML (0.02-0.05) (0.02-0.05) B-Type Natriuretic Peptide 2732 PG/ML (0-100) Total Protein 6.9 GM/DL (6.4-8.2) Albumin 3.3 GM/DL (3.4-5.0) Result Diagram: 12/03/16 0850 12/03/16 0850 Imaging Last Impressions Chest X-Ray 12/03/16 0837 Signed Impressions: Service Date/Time: Saturday, December 03, 2016 08:49 - CONCLUSION: Interval resolution of pulmonary vascular congestion. Decrease in asymmetric parenchymal opacity at the right lung base. Cornell Amaro MD Patient/Family Conference Present at Family Conference: patient Family Conference Time (mins): 50 Family Conference Location: Bedside Issues Discussed: * Palliative care role, purpose, approach * Additional medical, psychosocial, and spiritual history * Patients general health, functional status, and cognitive changes in the months leading up to the current hospitalization * Patient/family understanding of the current medical problems * Patient/family understanding of prognosis * Patients goals of care as best understood from advance directives and/or conversations and/or values * Current medical treatment options and benefits/burdens of those options * Likely scenarios comparing ongoing aggressive care with a transition to comfort measures only * Questions answered to the best of my ability * Palliative care contact information provided Assessment and Plan Disease Oriented Problem List: (1) CHF (congestive heart failure) Comment: EF of 15% (2) Pulmonary embolism (3) Supratherapeutic INR (4) Anti-phospholipid antibody syndrome (5) DM2 (diabetes mellitus, type 2) (6) IV drug abuse Comment: meth and cocaine, says he stop 7 months ago. Symptom Scale: (1) Pain 0-10 Scale: Unable to quantify (2) Dyspnea 0-10 Scale: Unable to quantify Pertinent Non-Medical Issues Psychosocial: Spiritual: Legal: Ethical issues impacting care: Important Contacts Arnie Lucio- no phone number available currently, will need to follow. Christine Spence- no phone number available currently, will need to follow. Prognosis EF at 15%, multiple chf hospitalizaition, He has a hx of IVDU (meth and cocaine) , although he says he has not done it for 7 months, it is unlikely he is a cardidate for transplant even if offered. He would meet hospice criteria. Code Status: Full Code Plan ==Goals of Care: Reviewed patient's previous hospitalizations, and current cardiac condition. He was very surprised, to find out that his cardiac function is so low and prognosis is poor. Discuss advanced directives, DNR status, and introduced concept of hospice with patient. He is appreciative of my visit, and says "although this is not the answer to the questions I want" he states he is appreciative of the answers. Currently in terms of goals of care. * He will contact his son, who he has been estranged from, and ask if he is willing to serve as HCS. ( Health care surrogate form left with patient) * He will weigh the risk and benefits of intubation, cpr, life support tonight. I have reviewed with patient, that life support does not fix his underlying cardiomyopathy, but, likely for his case prolong the dying process, more so than saving him. * He has a hx of IVDU (meth and cocaine), although he says he has not done it for 7 months. It is unlikely he is a cardiac transplant candidate even if offered. He understands with his EF at 15%, multiple hospitalization; he would meet hospice criteria and would consider hospice. I will f/u tomorrow. * He welcomes palliative secondary social studies teacher support. * For the time being, he wants to remain a full code, and continue maximal medical therapy. == symptom- pain, dyspnea- appears comfortable for now, no new med rec. == capacity- appears to have capacity. == Decision maker- if he losses capacity his son would be proxy per [place] [employer]. He is , and has one son who lives in [place]. HCS form is left on his table, he is considering putting his son Arnie Lucio. as primary and sister Christine Spence as alternate. He also has a brother. ==Code: full code. == palliative care will follow up tomorrow. Time Spent Total Floor Time (mins): 80 Face to Face Time (mins): 60 >50% Counseling/Coord of Care: Yes Thank you for the opportunity to participate in the care of Mr. Lucio. Attestation To help prompt me to consider important information that might be impacting today's encounter and assessment, information from prior notes written by myself or my colleagues may have been "brought forward" into today's note. My signature on this note, however, is an attestation that I personally performed the exam, history, and/or decision-making noted today, and, unless otherwise indicated, the interactions with patient, family, and staff as well as the review of records all occurred today. I also attest that the listed assessment and stated plan reflect my best clinical judgment today based on the combination of historical information, prior notes, and today's exam/ interactions. When time spent is documented, it refers only to time spent today by the signer, or if indicated, combined time spent today by collaborating physician/nurse practitioner. Leonard Larios MD December 03, 2016 17:15
[2016-12-03] MEDS: FUROSEMIDE 40 MG/4 ML VIAL IV PUSH SCH (17:51)
[2016-12-03] MEDS ORDERED: TEMAZEPAM 15 MG CAP PO PRN (21:00)
[2016-12-03] MEDS: INSULIN DETEMIR 100 UNITS/ML VIAL SQ SCH (21:26)
[2016-12-03] MEDS: SODIUM CHLORIDE 0.9% FLUSH 10 ML FLUSH IV FLUSH SCH (21:27)
[2016-12-03] MEDS: FAMOTIDINE 20 MG TAB PO SCH (21:30)
[2016-12-03] MEDS: CARVEDILOL 3.125 MG TAB PO SCH (21:31)
[2016-12-03] MEDS: DOCUSATE SODIUM 50 MG/SENNA 8.6 MG TAB PO SCH (21:31)
[2016-12-03] MEDS: POTASSIUM CHLORIDE 10 MEQ CONTROLLED RELEASE TAB PO SCH (21:32)
[2016-12-04] VITALS (10 sets, daily range): BP systolic 96–114; BP diastolic 51–72; PULSE 80–97; RESP 12–18; TEMP 97.2–98.2; O2SAT 92–100
[2016-12-04 05:53] LABS: BICARBONATE 23.1 MEQ/L (21.0-32.0); MAGNESIUM 1.8 MG/DL (1.5-2.5)
[2016-12-04] MEDS: INSULIN ASPART SUPPLEMENTAL SCALE SQ SCH ×4 (06:02→21:42)
[2016-12-04] MEDS: ISOSORBIDE MONONITRATE 60 MG TAB PO SCH (06:03)
[2016-12-04] MEDS ORDERED: ISOSORBIDE MONONITRATE 30 MG TAB PO SCH (07:00)
[2016-12-04] MEDS ORDERED: ASPIRIN 81 MG CHEW TAB CHEW SCH (09:00)
[2016-12-04 09:07] LABS: INTERNATIONAL NORMALIZED RATIO 3.9 RATIO; PROTHROMBIN TIME - PATIENT 45.9 SEC (9.8-11.6)
[2016-12-04] MEDS: FUROSEMIDE 40 MG/4 ML VIAL IV PUSH SCH ×2 (09:15→17:41)
[2016-12-04] MEDS: DOCUSATE SODIUM 50 MG/SENNA 8.6 MG TAB PO SCH ×2 (09:15→21:00)
[2016-12-04] MEDS: CARVEDILOL 3.125 MG TAB PO SCH ×2 (09:15→21:44)
[2016-12-04] MEDS: clonazePAM 0.5 MG TAB PO PRN (09:15)
[2016-12-04] MEDS: FAMOTIDINE 20 MG TAB PO SCH ×2 (09:15→21:44)
[2016-12-04] MEDS: POTASSIUM CHLORIDE 10 MEQ CONTROLLED RELEASE TAB PO SCH ×2 (09:15→21:44)
[2016-12-04] MEDS: SPIRONOLACTONE 25 MG TAB PO SCH (09:15)
[2016-12-04] MEDS: LISINOPRIL 5 MG TAB PO SCH (09:15)
[2016-12-04] MEDS: SODIUM CHLORIDE 0.9% FLUSH 10 ML FLUSH IV FLUSH SCH ×2 (09:17→21:43)
--- NOTE | 2016-12-04 12:10 | EKG ---
Date Performed: 12/03/2016 Time Performed: 08:45:12 PTAGE: 71 years EKG: Sinus rhythm LEFT ANTERIOR FASCICULAR BLOCK NONSPECIFIC T-WAVE ABNORMALITY ABNORMAL ECG PREVIOUS TRACING : 11/29/2016 19.12 Compared to prior tracing no significant change DOCTOR: Maikel Beltran Interpretating Date/Time 12/04/2016 12:09:48
--- NOTE | 2016-12-04 12:53 | HHI.PR ---
Subjective Remarks Follow up for acute CHF exacerbation, Cardiomyopathy. Patient is doing much better today. Ambulating well. No acute concerns. No CP, SOB, fever, chills. Objective Vitals Vital Signs Date Time Temp Pulse Resp B/P Pulse Ox O2 Delivery O2 Flow Rate FiO2 12/04/16 08:50 Room Air 12/04/16 08:00 97.7 91 16 109/70 97 12/04/16 07:41 99 21 12/04/16 04:15 98.2 87 12 114/72 92 12/04/16 04:00 98.2 87 12 114/72 94 12/04/16 03:51 87 12/03/16 23:44 98.0 94 16 108/75 91 12/03/16 21:05 98.3 104 16 122/76 94 12/03/16 20:00 115 12/03/16 20:00 Room Air 12/03/16 18:46 119 12/03/16 18:00 Room Air 12/03/16 16:27 96.7 105 18 147/96 100 12/03/16 14:44 98 20 126/73 99 Room Air 12/03/16 13:00 98 99 I/O 12/03/16 12/03/16 12/03/16 12/04/16 12/04/16 12/04/16 07:00 15:00 23:00 07:00 15:00 23:00 Intake Total 240 ml 570 ml 120 ml Output Total 1525 ml 1100 ml 200 ml Balance -1285 ml -530 ml -80 ml Intake Oral 240 ml 570 ml 120 ml Output Urine Total 1525 ml 1100 ml 200 ml # Bowel Movements 2 0 Result Diagram: 12/03/16 0850 12/04/16 0514 Imaging Last Impressions Chest X-Ray 12/03/16 0837 Signed Impressions: Service Date/Time: Saturday, December 03, 2016 08:49 - CONCLUSION: Interval resolution of pulmonary vascular congestion. Decrease in asymmetric parenchymal opacity at the right lung base. Cornell Amaro MD Objective Remarks GENERAL: AOX3, NAD. SKIN: Warm and dry. HEAD: Normocephalic. EYES: No scleral icterus. No injection or drainage. NECK: Supple, trachea midline. No JVD or lymphadenopathy. CARDIOVASCULAR: Regular rate and rhythm without murmurs, gallops, or rubs. RESPIRATORY: Breath sounds equal bilaterally. No accessory muscle use. GASTROINTESTINAL: Abdomen soft, non-tender, nondistended. MUSCULOSKELETAL: No cyanosis, or edema. BACK: Nontender without obvious deformity. No CVA tenderness. Procedures None. A/P Problem List: (1) Acute exacerbation of CHF (congestive heart failure) ICD Code: I50.9 Status: Acute (2) Non-ischemic cardiomyopathy ICD Code: I42.8 Status: Acute (3) Supratherapeutic INR ICD Code: R79.1 Status: Acute (4) Pulmonary embolism ICD Code: I26.99 Status: Chronic (5) Anti-phospholipid antibody syndrome ICD Code: D68.61 Status: Chronic (6) DM2 (diabetes mellitus, type 2) ICD Code: E11.9 Status: Chronic Assessment and Plan Mr. Lucio is a pleasant 71-year-old male with a history of pulmonary embolism, nonischemic cardiomyopathy with ejection fraction 15% who presents to the emergency department due to worsening shortness of breath, chest pain with breathing, orthopnea. - Acute exacerbation of systolic congestive heart failure - Non-ischemic Cardiomyopathy (EF 15%). - BNP 2732 on admission. CXR reviewed by me on 12/03/2016 shows cardiomegaly. - Status post cardiac catheterization on 11/24/2016 --> no CAD. Ejection fraction 15%. - Patient currently has LifeVest and is being managed by track maintainer Dr. Henry. - Continue Lasix IV 40 mg every 12 hours. KCL 10meQ BID. We'll consider torsemide 20 mg twice a day on discharge. - Continue Spironolactone 25mg Qday. Continue lisinopril 5 mg daily - Will change BB from Carvedilol to Metoprolol succinate 25mg Qday. - Discussed with patient - he is open to discussing with palliative care team. He understands that his prognosis is poor. Will place a hospice consult. - Patient would like to at least have discussion with hospice about options. - Pleuritic chest pain - likely due to congestive heart failure. - Increase isosorbide mononitrate from 30 mg to 60 mg daily. - Check troponins total of 3 times. - Recent history of pulmonary embolism - History of antiphospholipid syndrome - Supratherapeutic INR 13.1 on admission. No obvious bleeding. She is hemodynamically stable. - Patient is on warfarin 7.5 mg daily. Continue to hold warfarin for now. - INR 13.1 on admission. 5mg of Vitamin was given. INR today 3.9. - Once INR drops below 3, we can re-start with a lower dose - perhaps 4 or 5 mg Qday. - Diabetes mellitus type 2 - Levemir 10 units daily at bedtime and sliding scale insulin. - Anxiety - Patient does not take hydroxyzine at home. Continue clonazepam 0.5 mg every 8 hours when necessary. - History of IV Drug abuse - no IVDU in the last 7-8 months. Full code. Supratherapeutic INR 3.9 today. Probable discharge on 12/05/2016. Jeferson Crane DO Dec 04, 2016 12:53 pm
[2016-12-04] MEDS ORDERED: clonazePAM 1 MG TAB PO PRN (13:00)
[2016-12-04] MEDS ORDERED: ACETAMINOPHEN/HYDROcodone 325 MG/5 MG TAB PO PRN (13:00)
--- NOTE | 2016-12-04 16:59 | HHI.HCPN ---
Reason for visit a. To assist with evaluation and management of symptoms including:dyspnea, pain b. To assist medical decision maker(s) with: better understanding of current medical conditions; weighing benefits/burdens of medical treatment options; making medical treatment decisions. Subjective/Interval History Patient endorsed that he is feeling fine, ready go home tomorrow if stable. He has declined hospice services at the current time. She endorsed full code, but no PEG and trach. Completed living will, and wrote no PEG and trach. Designated patient's sister (as primary HCS) and patient's son Arnie as alternate healthcare surrogate. ========= 71-year-old with past medical history significant for CHF(EF 15%), PE (on Coumadin), hypertension, hyperlipidemia, DM, IVDU, anxiety, depression. He has had multiple hospitalization relating to his cardiac history and associated symptoms. Last hospitalization was from November 21, 2016 to November 25, 2016 where patient came in for chest pain, elevated INR, and CHF. During that hospitalization patient was ruled out for WA, and aspirin, Leandro, beta harshal, nitrates were given. Cardiac catheterization 11/24/2016 revealed nonischemic cardiomyopathy with severe LV dysfunction.Showed several lesions including a 60 % LAD midsegment, 70% OM 2, PDA "diffusely diseased" worse lesion was 50%, RCA mid segments 70%, ramus which is diffusely diseased. Self Defense Instructor feels this is mostly nonischemic cardiomyopathy. Patient was treated with diuretics for elevated BNP. Patient was stable enough to be discharged home. Patient has an external defibrillator/life vest. Patient return to the ER 11/29/2016 and was brought to the ER by EMS. Patient again have chest. ER physician reviewed the patient's chart and found that he had a recent catheterization that shows nonischemic cardiomyopathy. Troponin I was not elevated. Chest x-ray showed congestive failure with probable superimposed inflammatory process. Patient was stabilized and was discharged home. For current hospitalization patient return to for the 2nd time to the ER for chest pain and shortness of breath on 12/03/2016. Patient reports orthopnea and cannot sleep for the past few days. He described associated nausea. * Temperature is 97.7, pulse is 102, respirations 21, blood pressure is 137/79, pulse ox is 98%.\\ * Sodium is 136, potassium 3.7, chloride is 100, bicarbonate was 28.6, BUN 26, creatinine 18 is 1.08 * AST 37, ALTs 113, alkaline phosphatase is 247 * Troponin is 0.03. Second set 0.03 * BNP is 2732 * PTT is 162.3, INR is 13.1, PTT is 50.1. * Chest x-ray shows interval resolution of pulmonary vascular congestion. There is decrease asymmetrical parenchymal opacity at the right lung base. * Patient is admitted to hospitalist service. Patient given Lasix, spironolactone, continue lisinopril, carvedilol. * Palliative care was consulted to review goals of care. On my visit patient was sleeping, appears more comfortable. He endorses he has no chest pain right now and very appreciative that he is able to sleep. I introduced myself, and discuss the function of palliative care, reviewed patient's previous hospitalizations, and current cardiac condition. He was very surprised, to find out that his cardiac function is so low and prognosis is poor. Discuss advanced directives, DNR status, and introduced concept of hospice with patient. He is appreciative of my visit, and says "although this is not the answer to the questions I want, he is appreciative of the answers." Currently in terms of goals of care. = He will contact his son, who he has been estranged from, and ask if he is willing to serve as HCS. ( Health care surrogate form left with patient) = He will weigh the risk and benefits of intubation, cpr, life support tonight. I have reviewed with patient, that life support does not fix his underlying cardiomyopathy, but, likely for his case prolong the dying process, more so than saving him. =He has a hx of IVDU (meth and cocaine), although he says he has not done it for 7 months. It is unlikely he is a cardiac transplant candidate even if offered. He understands with his EF at 15%, multiple hospitalization; he would meet hospice criteria and would consider hospice. I will f/u tomorrow. =He welcomes palliative socially responsible investment adviser support. =For the time being, he wants to remain a full code, and continue maximal medical therapy. Family/friend interactions None at bedside Advance Directives Living Will: Copy in medical record Health Care Surrogate: Copy in medical record Durable Power of Talent Acquisition Associate: Never completed Objective Vital Signs Date Time Temp Pulse Resp B/P Pulse Ox O2 Delivery O2 Flow Rate FiO2 12/04/16 12:00 97.2 97 18 111/59 100 12/04/16 08:50 Room Air 12/04/16 08:00 97.7 91 16 109/70 97 12/04/16 08:00 87 12/04/16 07:41 99 21 12/04/16 04:15 98.2 87 12 114/72 92 12/04/16 04:00 98.2 87 12 114/72 94 12/04/16 03:51 87 12/03/16 23:44 98.0 94 16 108/75 91 12/03/16 21:05 98.3 104 16 122/76 94 12/03/16 20:00 115 12/03/16 20:00 Room Air 12/03/16 18:46 119 12/03/16 18:00 Room Air Physical Exam CONSTITUTIONAL/GENERAL: This is an adequately nourished patient, in no apparent distress. TUBES/LINES/DRAINS:piv SKIN: No jaundice, rashes, or lesions. Ecchymoses on upper extremities. No wounds seen anteriorly. Skin temperature appropriate. Not diaphoretic. HEAD: Atraumatic. Normocephalic. EYES: Pupils equal and round and reactive. Extraocular motions intact. No scleral icterus. No injection or drainage. Fundi not examined. ENT: Hearing grossly normal. Nose without bleeding or purulent drainage. Throat without visible erythema, exudates, masses, or lesions. NECK: Trachea midline. Supple, nontender. No palpable thyroid enlargement or nodularity. CARDIOVASCULAR: Regular rate and rhythm without murmurs, gallops, or rubs. No JVD. Peripheral pulses symmetric. RESPIRATORY/CHEST: Symmetric, unlabored respirations. Clear to auscultation. No wheezes, rales, or rhonchi. GASTROINTESTINAL: Abdomen soft, non-tender, nondistended. No hepato-splenomegaly , or palpable masses. No guarding. Bowel sounds present. GENITOURINARY: Without palpable bladder distension. Fine catheter in place. MUSCULOSKELETAL: Extremities without clubbing, cyanosis, or edema. No joint tenderness or effusion noted. No calf tenderness. No mottling or clubbing. LYMPHATICS: No palpable cervical or supraclavicular adenopathy. NEUROLOGICAL: Awake and alert. Motor and sensory grossly within normal limits. Follows commands. Cognitively sharp. Moves all extremities. PSYCHIATRIC: No obvious anxiety/depression. no apparent hallucinations or other psychotic thought process. Diagnostic Tests Laboratory Laboratory Tests Test 12/03/16 12/03/16 12/03/16 12/04/16 08:50 12:01 18:55 05:14 White Blood Count 5.8 TH/MM3 (4.0-11.0) Red Blood Count 4.48 MIL/MM3 (4.50-5.90) Hemoglobin 12.8 GM/DL (13.0-17.0) Hematocrit 39.3 % (39.0-51.0) Mean Corpuscular Volume 87.7 FL (80.0-100.0) Mean Corpuscular Hemoglobin 28.6 PG (27.0-34.0) Mean Corpuscular Hemoglobin 32.5 % Concent (32.0-36.0) Red Cell Distribution Width 18.1 % (11.6-17.2) Platelet Count 259 TH/MM3 (150-450) Mean Platelet Volume 8.8 FL (7.0-11.0) Neutrophils (%) (Auto) 60.3 % (16.0-70.0) Lymphocytes (%) (Auto) 26.6 % (9.0-44.0) Monocytes (%) (Auto) 10.2 % (0.0-8.0) Eosinophils (%) (Auto) 2.0 % (0.0-4.0) Basophils (%) (Auto) 0.9 % (0.0-2.0) Neutrophils # (Auto) 3.5 TH/MM3 (1.8-7.7) Lymphocytes # (Auto) 1.5 TH/MM3 (1.0-4.8) Monocytes # (Auto) 0.6 TH/MM3 (0-0.9) Eosinophils # (Auto) 0.1 TH/MM3 (0-0.4) Basophils # (Auto) 0.1 TH/MM3 (0-0.2) CBC Comment DIFF FINAL Differential Comment Prothrombin Time 162.3 SEC (9.8-11.6) Prothromb Time International 13.1 RATIO Ratio Activated Partial 50.1 SEC Thromboplast Time (24.3-30.1) Sodium Level 136 MEQ/L 137 MEQ/L (136-145) (136-145) Potassium Level 3.7 MEQ/L 4.0 MEQ/L (3.5-5.1) (3.5-5.1) Chloride Level 100 MEQ/L 105 MEQ/L (98-107) (98-107) Carbon Dioxide Level 28.6 MEQ/L 23.1 MEQ/L (21.0-32.0) (21.0-32.0) Anion Gap 7 MEQ/L (5-15) 9 MEQ/L (5-15) Blood Urea Nitrogen 26 MG/DL (7-18) 22 MG/DL (7-18) Creatinine 1.08 MG/DL 1.12 MG/DL (0.60-1.30) (0.60-1.30) Estimat Glomerular Filtration 68 ML/MIN (>89) 65 ML/MIN (>89) Rate Random Glucose 261 MG/DL 135 MG/DL (74-106) (74-106) Calcium Level 8.7 MG/DL 9.0 MG/DL (8.5-10.1) (8.5-10.1) Magnesium Level 1.8 MG/DL 1.8 MG/DL (1.5-2.5) (1.5-2.5) Total Bilirubin 0.6 MG/DL (0.2-1.0) Aspartate Amino Transf 37 U/L (15-37) (AST/SGOT) Alanine Aminotransferase 113 U/L (12-78) (ALT/SGPT) Alkaline Phosphatase 247 U/L (45-117) Total Creatine Kinase 74 U/L (39-308) Troponin I 0.03 NG/ML 0.03 NG/ML 0.02 NG/ML (0.02-0.05) (0.02-0.05) (0.02-0.05) B-Type Natriuretic Peptide 2732 PG/ML (0-100) Total Protein 6.9 GM/DL (6.4-8.2) Albumin 3.3 GM/DL (3.4-5.0) Test 12/04/16 08:02 Prothrombin Time 45.9 SEC (9.8-11.6) Prothromb Time International 3.9 RATIO Ratio Result Diagram: 12/03/16 0850 12/04/16 0514 Imaging Last Impressions Chest X-Ray 12/03/16 0837 Signed Impressions: Service Date/Time: Thursday, December 03, 2016 08:49 - CONCLUSION: Interval resolution of pulmonary vascular congestion. Decrease in asymmetric parenchymal opacity at the right lung base. Cornell Amaro MD Assessment and Plan Disease Oriented Problem List: (1) CHF (congestive heart failure) Comment: EF of 15% (2) Pulmonary embolism (3) Supratherapeutic INR (4) Anti-phospholipid antibody syndrome (5) DM2 (diabetes mellitus, type 2) (6) IV drug abuse Comment: meth and cocaine, says he stop 7 months ago. Symptom Scale: (1) Pain 0-10 Scale: Unable to quantify (2) Dyspnea 0-10 Scale: Unable to quantify Pertinent Non-Medical Issues Psychosocial: Spiritual: Legal: Ethical issues impacting care: Important Contacts Arnie Lucio- no phone number available currently, will need to follow. Christine Spence- no phone number available currently, will need to follow. Prognosis EF at 15%, multiple chf hospitalizaition, He has a hx of IVDU (meth and cocaine) , although he says he has not done it for 7 months, it is unlikely he is a cardidate for transplant even if offered. He would meet hospice criteria. Code Status: Full Code Plan ==Goals of Care: Declined hospice at this time. Goals remain aggressive and he wants to follow up with Dr. Henry. He completed living will, stating no peg or trach. Amenable to transition to comfort measures only if they are not able to wean him off ventilator. == symptom- pain, dyspnea- appears comfortable for now, no new med rec. == capacity- appears to have capacity. == Decision maker-Christine Spence, patient's sister is primary HCS. Arnie Lucio, (son) is alternate. == advance directives including living will, and HCS will be scan into [facility].. ==Code: full code. == palliative care will follow up as need. Time Spent Total Floor Time (mins): 45 Face to Face Time (mins): 30 Attestation To help prompt me to consider important information that might be impacting today's encounter and assessment, information from prior notes written by myself or my colleagues may have been "brought forward" into today's note. My signature on this note, however, is an attestation that I personally performed the exam, history, and/or decision-making noted today, and, unless otherwise indicated, the interactions with patient, family, and staff as well as the review of records all occurred today. I also attest that the listed assessment and stated plan reflect my best clinical judgment today based on the combination of historical information, prior notes, and today's exam/ interactions. When time spent is documented, it refers only to time spent today by the signer, or if indicated, combined time spent today by collaborating physician/nurse practitioner. Leonard Larios MD Dec 04, 2016 16:59
[2016-12-04] MEDS: INSULIN DETEMIR 100 UNITS/ML VIAL SQ SCH (21:41)
[2016-12-05 04:13] VITALS: BP 103/63; PULSE 77; RESP 16; TEMP 97.4; O2SAT 97
[2016-12-05] MEDS: INSULIN ASPART SUPPLEMENTAL SCALE SQ SCH ×2 (05:37→11:00)
[2016-12-05] MEDS: ISOSORBIDE MONONITRATE 60 MG TAB PO SCH (05:48)
[2016-12-05] MEDS: POTASSIUM CHLORIDE 10 MEQ CONTROLLED RELEASE TAB PO SCH (07:59)
[2016-12-05] MEDS: FUROSEMIDE 40 MG/4 ML VIAL IV PUSH SCH (07:59)
[2016-12-05] MEDS: LISINOPRIL 5 MG TAB PO SCH (07:59)
[2016-12-05] MEDS: SPIRONOLACTONE 25 MG TAB PO SCH (07:59)
[2016-12-05 08:00] VITALS: BP 111/71; PULSE 92; RESP 22; TEMP 96.5; O2SAT 95
[2016-12-05] MEDS: DOCUSATE SODIUM 50 MG/SENNA 8.6 MG TAB PO SCH (08:00)
[2016-12-05] MEDS: FAMOTIDINE 20 MG TAB PO SCH (08:00)
[2016-12-05] MEDS: SODIUM CHLORIDE 0.9% FLUSH 10 ML FLUSH IV FLUSH SCH (08:00)
--- NOTE | 2016-12-05 08:01 | HHI.PR ---
Subjective Remarks Follow up for acute CHF exacerbation, Cardiomyopathy. Patient is currently doing well. Denies any chest pain, shortness of breath, fever or chills. Palliative care indicated that patient does not qualify for hospice at this point. Objective Vitals Vital Signs Date Time Temp Pulse Resp B/P Pulse Ox O2 Delivery O2 Flow Rate FiO2 12/05/16 04:13 97.4 77 16 103/63 97 12/05/16 04:00 Room Air 12/05/16 00:00 Room Air 12/04/16 23:20 97.4 80 16 99/59 93 12/04/16 21:05 97.3 91 16 101/60 100 12/04/16 20:00 Room Air 12/04/16 20:00 85 12/04/16 16:00 97.4 86 18 96/53 97 12/04/16 12:00 97.2 97 18 111/59 100 12/04/16 08:50 Room Air I/O 12/04/16 12/04/16 12/04/16 12/05/16 12/05/16 12/05/16 07:00 15:00 23:00 07:00 15:00 23:00 Intake Total 120 ml 720 ml 720 ml 810 ml Output Total 200 ml 1000 ml 750 ml 150 ml Balance -80 ml -280 ml -30 ml 660 ml Intake Oral 120 ml 720 ml 720 ml 810 ml Output Urine Total 200 ml 1000 ml 750 ml 150 ml # Voids 0 # Bowel Movements 0 2 2 0 Result Diagram: 12/03/16 0850 12/05/16 0155 Imaging Last Impressions Chest X-Ray 12/03/16 0837 Signed Impressions: Service Date/Time: Saturday, December 03, 2016 08:49 - CONCLUSION: Interval resolution of pulmonary vascular congestion. Decrease in asymmetric parenchymal opacity at the right lung base. Cornell Amaro MD Objective Remarks GENERAL: AOX3, NAD. SKIN: Warm and dry. HEAD: Normocephalic. EYES: No scleral icterus. No injection or drainage. NECK: Supple, trachea midline. No JVD or lymphadenopathy. CARDIOVASCULAR: Regular rate and rhythm without murmurs, gallops, or rubs. RESPIRATORY: Breath sounds equal bilaterally. No accessory muscle use. GASTROINTESTINAL: Abdomen soft, non-tender, nondistended. MUSCULOSKELETAL: No cyanosis, or edema. BACK: Nontender without obvious deformity. No CVA tenderness. Procedures None. A/P Problem List: (1) Acute exacerbation of CHF (congestive heart failure) ICD Code: I50.9 Status: Acute (2) Non-ischemic cardiomyopathy ICD Code: I42.8 Status: Acute (3) Supratherapeutic INR ICD Code: R79.1 Status: Acute (4) Pulmonary embolism ICD Code: I26.99 Status: Chronic (5) Anti-phospholipid antibody syndrome ICD Code: D68.61 Status: Chronic (6) DM2 (diabetes mellitus, type 2) ICD Code: E11.9 Status: Chronic Assessment and Plan Mr. Lucio is a pleasant 71-year-old male with a history of pulmonary embolism, nonischemic cardiomyopathy with ejection fraction 15% who presents to the emergency department due to worsening shortness of breath, chest pain with breathing, orthopnea. - Acute exacerbation of systolic congestive heart failure - Non-ischemic Cardiomyopathy (EF 15%). - BNP 2732 on admission. CXR reviewed by me on 12/03/2016 shows cardiomegaly. - Status post cardiac catheterization on 11/24/2016 --> no CAD. Ejection fraction 15%. - Patient currently has LifeVest and is being managed by lumite injector Dr. Henry. - Continue Lasix IV 40 mg every 12 hours. KCL 10meQ BID. We'll consider torsemide 20 mg a day on discharge. - Continue Spironolactone 25mg Qday. Continue lisinopril 5 mg daily - changed BB from Carvedilol to Metoprolol succinate 25mg Qday. - Not a hospice candidate at this point. - Pleuritic chest pain - likely due to congestive heart failure. - Increase isosorbide mononitrate from 30 mg to 60 mg daily. - Check troponins total of 3 times. - Recent history of pulmonary embolism - History of antiphospholipid syndrome - Supratherapeutic INR 13.1 on admission. No obvious bleeding. She is hemodynamically stable. - Patient is on warfarin 7.5 mg daily. Continue to hold warfarin for now. - INR 13.1 on admission. 5mg of Vitamin was given. - INR was 1.8 today, we can re-start with a lower dose - perhaps 4 or 5 mg Qday. - Diabetes mellitus type 2 - Continue metformin on discharge. - Anxiety - Patient does not take hydroxyzine at home. Continue clonazepam 0.5 mg every 8 hours when necessary. - History of IV Drug abuse - no IVDU in the last 7-8 months. Full code. Supratherapeutic INR 3.9 today. Discharge patient to home Condition on discharge: Improved Heart healthy, diabetic Diet as tolerated Ad Velma activity Rx written: Clonazepam 1 mg by mouth every 8 hours when necessary for anxiety [place] 53 25 mg 1 tablet by mouth every 6 hours when necessary for pain Metoprolol succinate 25 mg by mouth daily Spironolactone 25 mg by mouth daily Torsemide 20 mg by mouth daily Warfarin 4 mg by mouth daily Follow-up with primary care physician within one week and cardiology within 7- 10 days. Jeferson Crane DO Dec 05, 2016 8:01 am
[2016-12-05] MEDS ORDERED: METOPROLOL SUCCINATE 25 MG EXTENDED RELEASE TAB PO SCH (09:00)
[2016-12-05] MEDS ORDERED: HYDR-3516 PO (09:14)
[2016-12-05] MEDS ORDERED: TORS20TA PO (09:14)
[2016-12-05] MEDS ORDERED: SPIR25 PO (09:14)
[2016-12-05] MEDS ORDERED: CLON1 PO (09:14)
[2016-12-05] MEDS ORDERED: METO25TA6 PO (09:14)
[2016-12-05] MEDS ORDERED: WARF-20 PO (09:17)
[2016-12-05 09:43] LABS: INTERNATIONAL NORMALIZED RATIO 1.8 RATIO
== END 2016-12-05 11:30 | disposition home or self-care (01) | DRG 292 ==
LOC: NEPC 08:28 → NEDA 11:09 → OBSVTOIN 13:05 → N04A 16:28
PROVIDERS: ADMIT Hospitalist; ATTEND Hospitalist
DX: I50.23 Acute on chronic systolic (congestive) heart failure (principal); I42.9 Cardiomyopathy, unspecified; D68.61 Antiphospholipid syndrome; R79.1 Abnormal coagulation profile; Z86.711 Personal history of pulmonary embolism; Z79.01 Long term (current) use of anticoagulants; E11.9 Type 2 diabetes mellitus without complications; Z79.84 Long term (current) use of oral hypoglycemic drugs; F41.9 Anxiety disorder, unspecified; F12.90 Cannabis use, unspecified, uncomplicated; Z87.891 Personal history of nicotine dependence
CPT/HCPCS: 71010; 80048; 80053; 82550; 82947; 82948; 83735; 83880; 84484; 85025; 85610; 85730; 93005; 99285; J1815; J1940

== ENCOUNTER 2017-01-19 21:32 | Inpatient (IN) | payer MEDICARE ==
[~2017-01-19] VITALS: Ht 182.9 cm; Wt 72.3 kg
[~2017-01-19 21:32] MED LIST changes: -ASPI81CH CHEW; -CARV3.125 PO; +CLON1 PO; -COUM7.5T PO; -FURO40TA PO; -HYDR-3133 PO; +HYDR-3516 PO; -ISOS30TA3 PO; +METO25TA6 PO; +SPIR25 PO; +TORS20TA PO; -TRAM50TA PO; +WARF-20 PO
[2017-01-19 21:44] VITALS: BP 138/97; PULSE 104; RESP 33; TEMP 98; O2SAT 94
[2017-01-19 21:47] VITALS: RESP 26; O2SAT 99
[2017-01-19] MEDS ORDERED: ASPI-110 PO (21:52)
[2017-01-19] MEDS ORDERED: HYDR-3366 PO (21:52)
[2017-01-19] MEDS ORDERED: NITROGLYCERIN 2% OINT 1 GM PACKET TOPICAL ONE (22:00)
[2017-01-19] MEDS ORDERED: ASPIRIN 81 MG CHEW TAB CHEW ONE (22:00)
[2017-01-19] MEDS ORDERED: NITROGLYCERIN 0.4 MG SL 25 TABS/BTL SL ONE (22:00)
--- NOTE | 2017-01-19 22:09 | PD ---
HPI Chief Complaint: Chest Pain Time Seen by Provider: 21:35 Travel History International Travel<30 days: No Contact w/Intl Traveler<30days: No Traveled to known affect area: No History of Present Illness HPI The patient is a 71 year old male who presents to the [facility] emergency department with a history of chest pain and increased dyspnea on exertion that began 2 days ago. He reports that during that period of time he is also had a cough that has been productive of small amount of brown sputum. He reports that he is also had a change in the color of his stool to a brownish red. He reports that he does not believe that there is blood in his stool. The patient has a medical history of coronary artery disease and a nonischemic cardiomyopathy that he reports was recently diagnosed. He is under the care of Dr. Henry, his parts facilitator. He has a life vest in place. He reports that a month ago his primary care physician discontinued his Lasix. He is unsure why. He denies having any increased lower extremity edema. He is unsure when he last had a cardiac catheterization. He reports that the chest pain as a pressure sensation in the center of his chest that is constant. He reports that it waxes and wanes in severity. He reports that it is worsened with activity. He reports that it is a base of 6 out of 10 in severity and goes up to 7-8 out of 10 in severity. He reports having diaphoresis intermittently associated with this. He reports having nausea but no vomiting. He denies having any radiation of his pain. On review of systems otherwise, the patient denies any recent fevers, congestion, neck pain, abdominal pain, urinary symptoms, or neurologic symptoms. [facility] Past Medical History Narrative Medical The patient's past medical history is significant for nonischemic cardiomyopathy , history of coronary artery disease without any prior history of ND or stenting , history of type 2 diabetes mellitus, antiphospholipid antibody syndrome, history of pulmonary embolism, history of being chronically anticoagulated on Coumadin. He has a prior history of smoking and quit smoking 30 years ago. Hx Anticoagulant Therapy: Yes Arthritis: No Asthma: No Blood Disorders: No Anxiety: No Depression: Yes Heart Rhythm Problems: No Cancer: No Cardiac Catheterization: No Cardiovascular Problems: Yes High Cholesterol: Yes Chemotherapy: No Chest Pain: Yes (ENDOCARDITITS) Congestive Heart Failure: Yes COPD: No Cerebrovascular Accident: Yes (mini strokes) Coronary Artery Disease: Yes Diabetes: Yes Diminished Hearing: No Endocrine: Yes Gastrointestinal Disorders: Yes GERD: No Glaucoma: No Genitourinary: No Headaches: No Hepatitis: No Hiatal Hernia: No Heparin Induced Thrombocytopen: No Hypertension: Yes Immune Disorder: No Implanted Vascular Access Dvce: No Kidney Stones: No Musculoskeletal: Yes Neurologic: Yes Psychiatric: No Reproductive: No Respiratory: Yes Migraines: No Myocardial Infarction: Yes (mother) Radiation Therapy: No Renal Failure: No Seizures: Yes (20 YEARS AGO W/ TIAS) Sickle Cell Disease: No Sleep Apnea: No Thyroid Disease: No Ulcer: No PNEUMOCCOCAL Vaccine (Year): 2007 Past Surgical History Narrative Surgical The patient's past surgical history is significant for cardiac catheterization, 6 prior back and neck surgeries, history of lung surgery related to a collapsed lung. AICD: No Appendectomy: Yes Arteriovenous Shunt: No Body Medical Devices: TIERRA IN NECK Cardiac Surgery: No Cholecystectomy: Yes (pt is unsure) Coronary Artery Bypass Graft: No Ear Surgery: No Endocrine Surgery: No Eye Surgery: No Genitourinary Surgery: No Gynecologic Surgery: No Insulin Pump: No Joint Replacement: No Neurologic Surgery: No Oral Surgery: No Pacemaker: No Thoracic Surgery: Yes (COLLAPSED LUNG) Other Surgery: Yes (6 back & neck & knee surgery/ eder/) Social History Alcohol Use: No Tobacco Use: No Substance Use: Yes Allergies-Medications (Allergen,Severity, Reaction): Coded Allergies: Morphine (Verified Allergy, Severe, Itching, 01/19/17) *MDRO Multi-Drug Resistant Organism (Verified Adverse Reaction, Unknown, ) 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/16 Reported Meds & Prescriptions Reported Meds & Active Scripts Active Warfarin 4 Mg Tab 4 Mg PO DAILY Torsemide 20 Mg Tab 20 Mg PO DAILY Klonopin (Clonazepam) 1 Mg Tab 1 Mg PO Q8HR PRN Metoprolol Succinate ER 24 HR (Metoprolol Succinate) 25 Mg Tab 25 Mg PO DAILY Lisinopril 5 Mg Tab 5 Mg PO DAILY Reported Aspirin 81 (Aspirin) 81 Mg Tabdr 81 Mg PO DAILY [place] (Hydrocodone-Acetaminophen) 10-325 Mg Tab 1 Tab PO Q8HR PRN Metformin (Metformin HCl) 500 Mg Tab 500 Mg PO DAILY With a meal Review of Systems Except as stated in HPI: all other systems reviewed are Neg General / Constitutional: No: Fever Eyes: No: Visual changes HENT: No: Headaches Cardiovascular: Positive: Chest Pain or Discomfort Respiratory: Positive: Cough, Shortness of Breath Gastrointestinal: Positive: Nausea, Changes in Bowel Habits, No: Vomiting, Diarrhea, Abdominal Pain, Hematemesis, Hematochezia, Indigestion, Loss of Appetite Genitourinary: No: Dysuria Musculoskeletal: No: Pain Skin: No Rash Neurologic: No: Weakness Psychiatric: No: Depression Endocrine: No: Polydipsia Hematologic/Lymphatic: No: Easy Bruising Physical Exam Narrative General: The patient is a well-developed well-nourished male in no acute distress. Head and Neck exam: Head is normocephalic atraumatic. Eyes: EOMI, pupils are equal round and reactive to light. Nose: Midline septum with pink mucous membranes Mouth: Dentition unremarkable. Moist mucus membranes. Posterior oropharynx is not erythematous. No tonsillar hypertrophy. Uvula midline. Airway patent. Neck: No palpable lymphadenopathy. No nuchal rigidity. No thyromegaly. Cardiovascular: Regular rate and rhythm without murmurs, gallops, or rubs. No pulse deficit to the extremities and simultaneous auscultation and palpation of his radial artery. Lungs: Clear to auscultation on the left, diminished breath sounds on the right in the right lung base. The patient has no wheezes, rhonchi, or crackles audible. Abdomen: Soft, with tenderness on palpation of bilateral lower quadrants of the abdomen. No other tenderness on palpation of the other quadrants. No guarding, rebound , or rigidity. Normal bowel sounds are audible. t Negative [place] sign. Extremities: No clubbing, cyanosis, or edema. 2+ pulses in all 4 extremities. No calf tenderness on palpation Back: No costovertebral angle tenderness to palpation. Neurologic Exam: Grossly nonfocal. Skin Exam: No rash noted. Intact skin that is warm and dry. Data Data Last Documented VS Vital Signs Date Time Temp Pulse Resp B/P Pulse Ox O2 Delivery O2 Flow Rate FiO2 01/19/17 23:00 100 24 125/72 100 Nasal Cannula 3 01/19/17 21:44 98.0 Orders Electrocardiogram (01/19/17 21:46) Complete Blood Count With Diff (01/19/17 21:46) Comprehensive Metabolic Panel (01/19/17 21:46) Creatine Kinase (Cpk) (01/19/17 21:46) Ckmb (Isoenzyme) Profile (01/19/17 21:46) Troponin I (01/19/17 21:46) B-Type Natriuretic Peptide (01/19/17 21:46) Prothrombin Time / Inr (Pt) (01/19/17 21:46) Act Partial Throm Time (Ptt) (01/19/17 21:46) Lipase (01/19/17 21:46) Urinalysis - C+S If Indicated (01/19/17 21:46) Magnesium (Mg) (01/19/17 21:46) Chest, Single Ap (01/19/17 21:46) Iv Access Insert/Monitor (01/19/17 21:46) Ecg Monitoring (01/19/17 21:46) Oximetry (01/19/17 21:46) Nitroglycerin 2% Oint (Nitroglycerin 2% (01/19/17 22:00) Nitroglycerin Sl (Nitrostat Sl) (01/19/17 22:00) Aspirin Chew (Aspirin Chew) (01/19/17 22:00) Furosemide Inj (Lasix Inj) (01/19/17 23:00) Admit Order (Ed Use Only) (01/19/17 23:51) Admit To Inpatient (01/19/17 ) Vital Signs (Adult) Q4H (01/19/17 23:50) Activity Oob With Assistance (01/19/17 23:50) Client Professional / Telemetry .CONTINUOUS (01/19/17 23:50) Intake + Output DENYS.QSHIFT (01/19/17 23:50) Diet Heart Healthy (01/20/17 Breakfast) Sodium Chloride 0.9% Flush (Ns Flush) (01/20/17 00:00) Sodium Chloride 0.9% Flush (Ns Flush) (01/20/17 09:00) Complete Blood Count With Diff (01/20/17 06:00) Creatine Kinase (Cpk) (01/20/17 04:20) Creatine Kinase (Cpk) (01/20/17 10:20) Troponin I (01/20/17 04:20) Troponin I (01/20/17 10:20) Electrocardiogram (01/20/17 04:20) Electrocardiogram (01/20/17 10:20) Pt Request For Service (01/19/17 23:50) Case Management Consult (01/19/17 23:50) Naloxone Inj (Narcan Inj) (01/20/17 00:00) Inpatient Certification (01/19/17 ) Furosemide Inj (Lasix Inj) (01/20/17 09:00) Basic Metabolic Panel (Bmp) (01/20/17 04:20) Labs Laboratory Tests Test 01/19/17 22:19 White Blood Count 7.1 TH/MM3 Red Blood Count 4.45 MIL/MM3 Hemoglobin 12.8 GM/DL Hematocrit 40.0 % Mean Corpuscular Volume 90.0 FL Mean Corpuscular Hemoglobin 28.7 PG Mean Corpuscular Hemoglobin 31.9 % Concent Red Cell Distribution Width 18.3 % Platelet Count 242 TH/MM3 Mean Platelet Volume 8.2 FL Neutrophils (%) (Auto) 73.7 % Lymphocytes (%) (Auto) 17.1 % Monocytes (%) (Auto) 7.6 % Eosinophils (%) (Auto) 1.0 % Basophils (%) (Auto) 0.6 % Neutrophils # (Auto) 5.2 TH/MM3 Lymphocytes # (Auto) 1.2 TH/MM3 Monocytes # (Auto) 0.5 TH/MM3 Eosinophils # (Auto) 0.1 TH/MM3 Basophils # (Auto) 0.0 TH/MM3 CBC Comment DIFF FINAL Differential Comment Prothrombin Time 12.1 SEC Prothromb Time International 1.1 RATIO Ratio Activated Partial 27.1 SEC Thromboplast Time Sodium Level 140 MEQ/L Potassium Level 4.5 MEQ/L Chloride Level 106 MEQ/L Carbon Dioxide Level 25.4 MEQ/L Anion Gap 9 MEQ/L Blood Urea Nitrogen 16 MG/DL Creatinine 1.21 MG/DL Estimat Glomerular Filtration 59 ML/MIN Rate Random Glucose 183 MG/DL Calcium Level 9.0 MG/DL Magnesium Level 1.7 MG/DL Total Bilirubin 0.6 MG/DL Aspartate Amino Transf 21 U/L (AST/SGOT) Alanine Aminotransferase 19 U/L (ALT/SGPT) Alkaline Phosphatase 134 U/L Total Creatine Kinase 71 U/L Troponin I 0.03 NG/ML B-Type Natriuretic Peptide 4458 PG/ML Total Protein 7.4 GM/DL Albumin 3.2 GM/DL Lipase 103 U/L MDM Medical Decision Making Medical Screen Exam Complete: Yes Emergency Medical Condition: Yes Medical Record Reviewed: Yes Interpretation(s) Last Impressions Chest X-Ray 01/19/172145 Signed Impressions: Service Date/Time: Thursday, January 19, 2017 21:44 - CONCLUSION: Mild pulmonary vascular congestion is suspected with small effusions. Duglas Celis MD Differential Diagnosis Acute coronary syndrome, versus symptomatic anemia, versus congestive heart failure exacerbation, versus pulmonary embolism Narrative Course During the course of the patients emergency department visit, the patients history, examination, and differential diagnosis were reviewed with the patient. The patient had IV access obtained and blood work sent for analysis. The patient was placed on a home demonstration agent with oximetry and blood pressure monitoring. An ECG was done on arrival. The patient's ECG reveals a sinus tachycardia rate of 100, marked left axis deviation, QRS duration is 101 ms, QTC is 398 ms, nonspecific ST-T wave abnormalities are noted. T waves are inverted in V6. The patient was initially provided an additional aspirin 81 mg by mouth 1 as he did take his low-dose aspirin earlier today. The patient was given nitroglycerin sublingual 1, nitroglycerin 1 inch the chest wall. The patient's electronic medical record was reviewed. The patient last had a cardiac catheterization done at this facility by Dr. Henry on November 24, 2016. The patient was noted to have coronary artery disease that was not deemed to be significant enough to cause his dilated cardiomyopathy, therefore he was diagnosed with a nonischemic cardiomyopathy with a severely diminished LV ejection fraction at 15%. The patients laboratory studies were reviewed and remarkable for a white count of 7.1, hemoglobin 12.8, platelets 242 with 73.7 neutrophils, CMP is remarkable for glucose of 183, alkaline phosphatase 134, CPK 71, troponin I 0.03, lipase 103, PT 12.1, PTT 27.1 Radiology studies were reviewed and remarkable for a chest x-ray that shows mild pulmonary vascular congestion and small pleural effusions. The patient was given Lasix 40 mg IV. The patients results were discussed with the patient, including the plan of care. I explained that further testing and/ or monitoring is indicated based on the patients history, examination, and/ or laboratory findings. Therefore, I recommended admission for additional evaluation. The patient expressed understanding and was agreeable with this plan. The patient was admitted to the hospital in guarded condition and sent to a bed under the care of the [facility]. Diagnosis Primary Impression: Chest pain, rule out acute myocardial infarction Additional Impression: Acute exacerbation of congestive heart failure Qualified Code: I50.23 - Acute on chronic systolic congestive heart failure Admitting Information Admitting Physician Requests: Admit Shauna Baires MD Jan 19, 2017 22:09
--- NOTE | 2017-01-19 22:11 | RADRPT ---
EXAM DATE/TIME: 01/19/2017 21:44 [facility] COMPARISON: CHEST SINGLE AP, December 03, 2016, 8:49. INDICATIONS : Chest pain. MEDICAL HISTORY : Congestive heart failure. Seizures. Hypercholesterolemia. Hypertension. SURGICAL HISTORY : Appendectomy. Cholecystectomy. Back surgery ENCOUNTER: Initial ACUITY: 1 day PAIN SCORE: 10/10 LOCATION: Bilateral chest FINDINGS: . There is mild prominence of the pulmonary scooter and small bilateral effusions are likely. Degener ative changes of the spine and aortic calcification. CONCLUSION: Mild pulmonary vascular congestion is suspected with small effusions. Duglas Celis MD on January 19, 2017 at 22:09 Board Certified Radiologist. This report was verified electronically.
[2017-01-19 22:30] VITALS: BP 142/86; PULSE 100; RESP 22; O2SAT 98
[2017-01-19 22:42] LABS: AUTOMATED NEUTROPHIL # 5.2 TH/MM3 (1.8-7.7); BASOPHIL % 0.6 % (0.0-2.0); EOSINOPHIL # 0.1 TH/MM3 (0-0.4); HEMO FLAGS DIFF FINAL; LYMPH % 17.1 % (9.0-44.0); LYMPHOCYTE # 1.2 TH/MM3 (1.0-4.8); MEAN CORPUSCULAR HEMOGLOBIN 28.7 PG (27.0-34.0); MEAN CORPUSCULAR HGB CONC 31.9 % (32.0-36.0); MONO % 7.6 % (0.0-8.0); NEUT % 73.7 % (16.0-70.0); PLATELET COUNT 242 TH/MM3 (150-450); RED BLOOD COUNT 4.45 MIL/MM3 (4.50-5.90); RED CELL DISTRIBUTION WIDTH 18.3 % (11.6-17.2); WHITE BLOOD COUNT 7.1 TH/MM3 (4.0-11.0)
[2017-01-19 22:49] LABS: APTT (PATIENT) 27.1 SEC (24.3-30.1); INTERNATIONAL NORMALIZED RATIO 1.1 RATIO; PROTHROMBIN TIME - PATIENT 12.1 SEC (9.8-11.6)
[2017-01-19 23:00] VITALS: BP 125/72; PULSE 100; RESP 24; O2SAT 100
[2017-01-19] MEDS ORDERED: FUROSEMIDE 40 MG/4 ML VIAL IV PUSH ONE (23:00)
[2017-01-19 23:08] LABS: ALT (GPT) 19 U/L (12-78); ANION GAP 9 MEQ/L (5-15); AST (GOT) 21 U/L (15-37); BICARBONATE 25.4 MEQ/L (21.0-32.0); BLOOD UREA NITROGEN 16 MG/DL (7-18); CHLORIDE 106 MEQ/L (98-107); GLOMERULAR FILTRATION RATE 59 ML/MIN (>89); MAGNESIUM 1.7 MG/DL (1.5-2.5); POTASSIUM 4.5 MEQ/L (3.5-5.1); SODIUM (NA) 140 MEQ/L (136-145)
[2017-01-19 23:12] LABS: ALKALINE PHOSPHATASE 134 U/L (45-117); TOTAL BILIRUBIN ADULT 0.6 MG/DL (0.2-1.0)
[2017-01-19 23:13] LABS: CREATINE KINASE 71 U/L (39-308)
[2017-01-20] VITALS (10 sets, daily range): BP systolic 102–137; BP diastolic 56–89; PULSE 69–98; RESP 15–29; TEMP 95.2–98.5; O2SAT 95–100
[2017-01-20] MEDS ORDERED: SODIUM CHLORIDE 0.9% FLUSH 10 ML FLUSH IV FLUSH PRN
[2017-01-20] MEDS ORDERED: NALOXONE HCL 0.4 MG/ML AMP IV PRN
[2017-01-20 04:26] LABS: BASOPHIL % 0.8 % (0.0-2.0); EOSINOPHIL # 0.1 TH/MM3 (0-0.4); EOSINOPHIL % 1.4 % (0.0-4.0); HEMATOCRIT 36.1 % (39.0-51.0); HEMO FLAGS DIFF FINAL; LYMPH % 24.4 % (9.0-44.0); LYMPHOCYTE # 1.5 TH/MM3 (1.0-4.8); MEAN CELL VOLUME 89.3 FL (80.0-100.0); MEAN CORPUSCULAR HEMOGLOBIN 29.1 PG (27.0-34.0); MEAN CORPUSCULAR HGB CONC 32.6 % (32.0-36.0); MONO % 6.4 % (0.0-8.0); PLATELET COUNT 207 TH/MM3 (150-450); RED BLOOD COUNT 4.05 MIL/MM3 (4.50-5.90); RED CELL DISTRIBUTION WIDTH 18.4 % (11.6-17.2)
[2017-01-20 05:20] LABS: BICARBONATE 27.3 MEQ/L (21.0-32.0); POTASSIUM 3.5 MEQ/L (3.5-5.1)
[2017-01-20] MEDS: POTASSIUM CHLORIDE 20 MEQ CONTROLLED RELEASE TAB PO SCH ×2 (09:01→22:03)
[2017-01-20] MEDS: SODIUM CHLORIDE 0.9% FLUSH 10 ML FLUSH IV FLUSH SCH ×2 (09:01→22:04)
[2017-01-20] MEDS: FUROSEMIDE 40 MG/4 ML VIAL IV PUSH SCH ×2 (09:01→19:52)
--- NOTE | 2017-01-20 10:05 | HHI.HP ---
[facility] Service [facility] Primary Care Physician Kwesi Joseph MD Admission Diagnosis CP R/O DC, CHF exacerbation Diagnoses: (1) Acute exacerbation of congestive heart failure Diagnosis: Principal (2) Chest pain (3) DM (diabetes mellitus) (4) Hyperlipidemia (5) HTN (hypertension) Chief Complaint: Chest pain, dyspnea Travel History International Travel<30 Days: No Contact w/Intl Traveler <30 Da: No Traveled to Known Affected Are: No History of Present Illness The patient is a 71-year-old male with history of congestive heart failure who presented to the emergency department with complaint of chest pain and dyspnea over the past 2-3 days. He scratched the chest pain has a dull ache in the center of his chest. It radiates somewhat to the right shoulder. Currently 7/ 10. At its worst, the pain was 9/10. He reports associated dyspnea, but no diaphoresis. Denies lower extremity edema. Review of Systems Constitutional: DENIES: Fever, Chills, Night Sweats Eyes: DENIES: Blurred vision, Vision loss Ears, nose, mouth, throat: DENIES: Hearing loss Respiratory: COMPLAINS OF: Shortness of breath, DENIES: Cough, Wheezing, Sputum production Cardiovascular: COMPLAINS OF: Chest pain, Dyspnea on Exertion, DENIES: Palpitations, Lower Extremity Edema Gastrointestinal: COMPLAINS OF: Nausea, DENIES: Abdominal pain, Constipation, Diarrhea, Vomiting Genitourinary: DENIES: Urinary frequency, Urinary incontinence, Urgency, Hematuria, Dysuria, Nocturia Musculoskeletal: DENIES: Joint pain, Muscle aches Integumentary: DENIES: Pruritus, Rash Hematologic/lymphatic: DENIES: Bruising Neurologic: DENIES: Headache Psychiatric: COMPLAINS OF: Anxiety Past Family Social History Past Medical History Anxiety/depression Hyperlipidemia History of TIA Coronary artery disease Chronic systolic congestive heart failure Cardiomyopathy Hypertension History of seizures 20 years ago Diabetes mellitus type 2 Anti-phospholipid syndrome History of PE Past Surgical History Back/neck surgery x 6 Lung surgery secondary to pneumothorax Cholecystectomy Appendectomy Reported Medications Warfarin 4 Mg Tab 4 Mg PO DAILY Torsemide 20 Mg Tab 20 Mg PO DAILY Klonopin (Clonazepam) 1 Mg Tab 1 Mg PO Q8HR PRN Metoprolol Succinate ER 24 HR (Metoprolol Succinate) 25 Mg Tab 25 Mg PO DAILY Lisinopril 5 Mg Tab 5 Mg PO DAILY Aspirin 81 (Aspirin) 81 Mg Tabdr 81 Mg PO DAILY [place] (Hydrocodone-Acetaminophen) 10-325 Mg Tab 1 Tab PO Q8HR PRN Metformin (Metformin HCl) 500 Mg Tab 500 Mg PO DAILY With a meal Allergies: Coded Allergies: Morphine (Verified Allergy, Severe, Itching, 01/19/17) *MDRO Multi-Drug Resistant Organism (Verified Adverse Reaction, Unknown, ) 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/16 Family History Congestive heart failure Social History Quit smoking 30 years ago. Denies alcohol use. Admits to illicit drug use. Smokes marijuana. Most recently used IV drugs 7 months ago, methamphetamine and cocaine. Physical Exam Vital Signs Vital Signs Date Time Temp Pulse Resp B/P Pulse Ox O2 Delivery O2 Flow Rate FiO2 01/20/17 07:57 97.9 69 15 102/56 95 01/20/17 05:27 98.5 74 18 127/77 99 01/20/17 04:02 87 01/20/17 01:51 94 01/20/17 00:00 98 29 137/89 100 Nasal Cannula 3 01/19/17 23:00 100 24 125/72 100 Nasal Cannula 3 01/19/17 22:37 22 01/19/17 22:30 100 22 142/86 98 Nasal Cannula 3 01/19/17 22:24 26 99 Nasal Cannula 3 01/19/17 21:47 26 99 Nasal Cannula 3 01/19/17 21:44 98.0 104 33 138/97 94 Physical Exam GENERAL: Elderly male in no acute distress. HEENT: Normocephalic, atraumatic. Pupils equal, round and reactive. Extraocular movements intact. No scleral icterus. No injection or drainage. Oropharynx is clear. Mucous membranes are moist. CARDIOVASCULAR: Regular rate and rhythm without murmurs, gallops, or rubs. RESPIRATORY: Decreased breath sounds in both bases, right greater than left. No wheeze, rales, or rhonchi. Breathing is non-labored. GASTROINTESTINAL: Abdomen soft, non-tender, nondistended. EXTREMITIES: No lower extremity edema. No calf tenderness. PSYCH: Alert and oriented x 3. Laboratory Laboratory Tests Test 01/19/17 01/20/17 22:19 04:14 White Blood Count 7.1 6.0 Red Blood Count 4.45 4.05 Hemoglobin 12.8 11.8 Hematocrit 40.0 36.1 Mean Corpuscular Volume 90.0 89.3 Mean Corpuscular Hemoglobin 28.7 29.1 Mean Corpuscular Hemoglobin 31.9 32.6 Concent Red Cell Distribution Width 18.3 18.4 Platelet Count 242 207 Mean Platelet Volume 8.2 7.8 Neutrophils (%) (Auto) 73.7 67.0 Lymphocytes (%) (Auto) 17.1 24.4 Monocytes (%) (Auto) 7.6 6.4 Eosinophils (%) (Auto) 1.0 1.4 Basophils (%) (Auto) 0.6 0.8 Neutrophils # (Auto) 5.2 4.0 Lymphocytes # (Auto) 1.2 1.5 Monocytes # (Auto) 0.5 0.4 Eosinophils # (Auto) 0.1 0.1 Basophils # (Auto) 0.0 0.0 CBC Comment DIFF FINAL DIFF FINAL Differential Comment Prothrombin Time 12.1 Prothromb Time International 1.1 Ratio Activated Partial 27.1 Thromboplast Time Sodium Level 140 138 Potassium Level 4.5 3.5 Chloride Level 106 100 Carbon Dioxide Level 25.4 27.3 Anion Gap 9 11 Blood Urea Nitrogen 16 14 Creatinine 1.21 1.14 Estimat Glomerular Filtration 59 64 Rate Random Glucose 183 263 Calcium Level 9.0 8.9 Magnesium Level 1.7 Total Bilirubin 0.6 Aspartate Amino Transf 21 (AST/SGOT) Alanine Aminotransferase 19 (ALT/SGPT) Alkaline Phosphatase 134 Total Creatine Kinase 71 50 Troponin I 0.03 0.03 B-Type Natriuretic Peptide 4458 Total Protein 7.4 Albumin 3.2 Lipase 103 Result Diagram: 01/20/17 0414 01/20/17 0414 Imaging Last Impressions Chest X-Ray 01/19/172145 Signed Impressions: Service Date/Time: Thursday, January 19, 2017 21:44 - CONCLUSION: Mild pulmonary vascular congestion is suspected with small effusions. Duglas Celis MD Assessment and Plan Assessment and Plan 1. Acute exacerbation of chronic systolic congestive heart failure: Continue diuresis. Monitor on telemetry. 2. Chest pain: Patient has significant cardiac history. Follow serial cardiac enzymes and EKGs. Consult patient's carroter, Dr. Henry. Continue aspirin. 3. Diabetes mellitus type 2: Hold metformin. Monitor Accu-Cheks and cover with sliding scale insulin. 4. Anxiety: Continue clonazepam as needed. 5. Nonischemic cardiomyopathy: Appreciate cardiology recommendations. Patient has a life vest, but is not wearing it at this time. 6. History of PE, antiphospholipid antibody syndrome: INR is subtherapeutic. Restart Coumadin. Cover with Lovenox. 7. History of IV drug abuse: Patient counseled. No IV drug use in the last 7 months or so. 8. DVT prophylaxis: Coumadin, Lovenox. Code Status Full code Problem Qualifiers (1) Acute exacerbation of congestive heart failure: Qualified Code: I50.23 - Acute on chronic systolic congestive heart failure Jalil Goodwin MD Jan 20, 2017 10:05
[2017-01-20] MEDS: ASPIRIN EC 81 MG TABEC PO SCH (11:20)
[2017-01-20] MEDS: ENOXAPARIN SODIUM 80 MG/0.8 ML SYRINGE SQ SCH ×2 (11:20→22:02)
[2017-01-20] MEDS: clonazePAM 1 MG TAB PO PRN ×2 (14:48→23:55)
--- NOTE | 2017-01-20 15:25 | MB ---
cc: CHARO FONG DATE OF : 1945 DATE OF CONSULTATION: January 20, 2017. REASON FOR CONSULTATION: Chest pain. HISTORY OF PRESENT ILLNESS: This is a 71 year-old male with past medical history significant for nonischemic cardiomyopathy, anxiety, depression, hyperlipidemia, history of transient ischemic attack, hypertension, antiphospholipid syndrome and pulmonary embolus who presented to the hospital with complaints of shortness of breath for the last two or three days, associated with fever and chills. Also reports some atypical chest pain that radiates to the right shoulder. He reports being compliant with medication therapy. However, he is suppose to be on coumadin at home for pulmonary embolism and for antiphospholipid syndrome and the INR is supratherapuetic. The cardiovascular work up so far has revealed an elevated B-type natriuretic peptide and negative cardiac markers times three. Cardiology has been consulted for evaluation of chest pain and acute and chronic systolic heart failure. REVIEW OF SYSTEMS Negative except for what is mentioned in the history of present illness. PAST MEDICAL HISTORY: 1. Non-ischemic cardiomyopathy. 2. Chronic congestive heart failure, less then 20%. 3. History of transient ischemic attack. 4. Hyperlipidemia. 5. Anxiety. 6. Depression. 7. Hypertension. 8. Seizures. 9. Diabetes mellitus. 10. Antiphosphoid syndrome and pulmonary emboli. PAST SURGICAL HISTORY: 1. Back surgery. 2. Neck surgery. 3. Lung surgery secondary to pneumothorax. 4. Cholecystectomy. 5. Appendectomy. HOME MEDICATIONS: 1. Warfarin 4 mg p.o. daily. 2. Torsemide 20 mg p.o. daily. 3. Klonopin 1 mg p.o. q eight hours as needed. 4. Metoprolol succinate 25 mg p.o. daily. 5. Lisinopril 5 mg p.o. daily. 6. Aspirin 81 mg p.o. daily. 7. Metformin 500 mg p.o. daily. 8. Narco 1 tablet p.o. q eight hours as needed. ALLERGIES MORPHINE. FAMILY HISTORY: Noncontributory. SOCIAL HISTORY: He is a former smoker, quit 30 years ago. He denies alcohol use or recent illicit drug use. His most recent IV drug use was seven months ago. PHYSICAL EXAMINATION VITAL SIGNS: Temperature 97, respiratory rate 18, Heart rate 89, blood pressure 120/78, O2 sat 98% room air. IN GENERAL: Generally awake, alert, oriented x3 in no acute distress. NECK: No JVD or carotid bruits. HEART: Regular rate and rhythm. No murmurs, rubs or gallops. LUNGS: Diminished breath sounds on the right lower lobe. No wheezes or rhonchi or rales. ABDOMEN: Abdomen: Soft, nontender, nondistended. Positive bowel sounds. EXTREMITIES: No cyanosis or edema. Pulses throughout. DATA CBC the hematocrit 36, platelet count 207, INR 1.1. Chemistries sodium 07/06/1935, potassium 3.5, BUN 14, creatinine 1.1, troponin 0.03, 0.03 at 0.03. BNP 4458, lipase 103, alkaline phosphatase 134. IMAGING STUDIES Chest x-ray Mild pulmonary vascular congestion with small effusions. ELECTROCARDIOGRAM; Sinus tachycardia with nonspecific ST changes. ASSESSMENT/PLAN 71-year-old main with known nonischemic cardiomyopathy with an ejection fraction of 20% not wearing the LifeVest. Not compliant with Coumadin for his history of pulmonary embolus, that presents to the hospital with atypical chest pain and symptoms of acute on chronic systolic heart exacerbation. His clinical picture also per the patient includes chills and fever, however, there is no blood cultures or sputum cultures have been grown. Regarding his chest pain most likely associated with acute on chronic systolic heart failure for which I recommend to restart his aggressive medical management for this with IV diuresis, strict in and out puts, low salt diet, daily weights. I would also consider a CT of the chest to rule out pulmonary embolus, given his history of antiphospholipid syndrome and pulmonary embolus in the past. The patient has also had toxicology screen and the sputum and blood cultures should be sent for analysis. Regarding cardiac workup in the hospital, the patient had a recent cardiac workup in the hospital which was unremarkable other than showing a nonischemic cardiomyopathy. Thus no other invasive therapies are recommended at this time. Thank you for the opportunity to take part in the care of this patient further therapy to be determined. MD AUDREY Foster/aleisha /2:04 PM /3:09 PM
--- NOTE | 2017-01-20 17:38 | RADRPT ---
EXAM DATE/TIME: 01/20/2017 17:06 [facility] COMPARISON: CT PULMONARY ANGIOGRAM, October 08, 2016, 23:18. INDICATIONS : Chest pain and shortness of breath for four days IV CONTRAST: 50 cc Omnipaque 350 (iohexol) IV RADIATION DOSE: 9.98 CTDIvol (mGy) MEDICAL HISTORY : Cardiovascular disease. Cerebrovascular disease. Endocarditis SURGICAL HISTORY : Cholecystectomy. Appendectomy. ENCOUNTER: Initial ACUITY: 4 - 6 days PAIN SCALE: 6/10 LOCATION: chest TECHNIQUE: Volumetric scanning of the chest was performed using a pulmonary embolism protocol MIP images were re constructed. Using automated exposure control and adjustment of the mA and/or kV according to patien t size, radiation dose was kept as low as reasonably achievable to obtain optimal diagnostic quality images. DICOM format image data is available electronically for review and comparison. Follow-up recommendations for incidentally detected pulmonary nodules are based at a minimum on nodul e size and patient risk factors according to Fleischner Society Guidelines. FINDINGS: PULMONARY ARTERIES: No filling defects are seen in the pulmonary arteries through the segmental level. LUNGS: There is no consolidation or pneumothorax . No concerning pulmonary nodule is visualized. PLEURAE: There is no pleural thickening . Bilateral pleural effusions left greater than right similar to October MEDIASTINUM: There is good visualization of the great vessels of the middle mediastinum. No evidence of mediastin al or hilar adenopathy/mass. MUSCULOSKELETAL: Within normal limits for patient age. MISCELLANEOUS: The visualized upper abdominal organs demonstrate no acute abnormality. CONCLUSION: Normal examination in regard to pulmonary embolism, none are seen. Bilateral pleural effusions left g reater than right. Minimal atelectasis adjacent to the left pleural effusion Anthony Gillespie MD on January 20, 2017 at 17:35 Board Certified Radiologist. This report was verified electronically.
[2017-01-20] MEDS ORDERED: IOHEXOL 350 MG/ML 10 ML VIAL (for RAD DIAG) IV ONE (17:59)
--- NOTE | 2017-01-20 18:44 | EKG ---
Date Performed: 01/19/2017 Time Performed: 21:47:51 PTAGE: 71 years EKG: SINUS TACHYCARDIA POSSIBLE LEFT ATRIAL ENLARGEMENT MARKED LEFT AXIS DEVIATION NONSPECIFIC S T & T-WAVE ABNORMALITY ABNORMAL ECG PREVIOUS TRACING : 12/03/2016 08.45 Compared to prior tracing no significant change DOCTOR: Maikel Beltran Interpretating Date/Time 01/20/2017 18:42:47
[2017-01-21] VITALS (13 sets, daily range): BP systolic 90–137; BP diastolic 55–90; PULSE 82–100; RESP 13–18; TEMP 96.9–97.9; O2SAT 93–99
[2017-01-21 07:53] LABS: BICARBONATE 30.6 MEQ/L (21.0-32.0); MAGNESIUM 1.8 MG/DL (1.5-2.5)
[2017-01-21] MEDS: METOPROLOL SUCCINATE 25 MG EXTENDED RELEASE TAB PO SCH (09:32)
[2017-01-21] MEDS: LISINOPRIL 5 MG TAB PO SCH (09:32)
[2017-01-21] MEDS: clonazePAM 1 MG TAB PO PRN ×2 (09:32→18:03)
[2017-01-21] MEDS: SODIUM CHLORIDE 0.9% FLUSH 10 ML FLUSH IV FLUSH SCH ×2 (09:33→20:44)
[2017-01-21] MEDS: POTASSIUM CHLORIDE 20 MEQ CONTROLLED RELEASE TAB PO SCH ×2 (09:33→20:44)
[2017-01-21] MEDS: ASPIRIN EC 81 MG TABEC PO SCH (09:33)
[2017-01-21] MEDS: FUROSEMIDE 40 MG/4 ML VIAL IV PUSH SCH ×2 (09:33→18:03)
[2017-01-21] MEDS: ENOXAPARIN SODIUM 80 MG/0.8 ML SYRINGE SQ SCH ×2 (09:38→22:12)
--- NOTE | 2017-01-21 13:55 | HHI.PR ---
Subjective Remarks Follow up chest pain, CHF. Patient still reporting chest pain in the center of his chest, which he describes as "stabbing dull pain". Reports dyspnea as well. No lower extremity swelling. Objective Vitals Vital Signs Date Time Temp Pulse Resp B/P Pulse Ox O2 Delivery O2 Flow Rate FiO2 01/21/17 11:41 97.9 95 15 112/67 95 01/21/17 07:58 97.9 100 15 137/90 99 01/21/17 06:15 97.3 82 16 117/70 97 01/21/17 06:10 88 01/21/17 05:40 96.9 88 18 126/79 96 01/21/17 04:10 87 01/21/17 00:02 89 01/20/17 23:47 98.0 92 18 136/73 99 01/20/17 20:42 95.2 94 18 135/81 100 01/20/17 20:00 93 01/20/17 15:47 97.8 86 15 109/60 99 I/O 01/20/17 01/20/17 01/20/17 01/21/17 01/21/17 01/21/17 07:00 15:00 23:00 07:00 15:00 23:00 Intake Total 750 ml Output Total 2125 ml 1000 ml 1725 ml 1050 ml 725 ml Balance -2125 ml -250 ml -1725 ml -1050 ml -725 ml Intake Oral 750 ml IV Total 0 ml Output Urine Total 2125 ml 1000 ml 1725 ml 1050 ml 725 ml # Voids 2 1 1 Result Diagram: 01/20/17 0414 01/21/17 [address] Angiography 01/20/17 0000 Signed Impressions: Service Date/Time: Friday, January 20, 2017 17:06 - CONCLUSION: Normal examination in regard to pulmonary embolism, none are seen. Bilateral pleural effusions left greater than right. Minimal atelectasis adjacent to the left pleural effusion Anthony Gillespie MD Chest X-Ray 01/19/179 Signed Impressions: Service Date/Time: Thursday, January 19, 2017 21:44 - CONCLUSION: Mild pulmonary vascular congestion is suspected with small effusions. Duglas Celis MD Objective Remarks General: Elderly male in no acute distress. Heart: Regular rate and rhythm. No murmur. Lungs: Decreased breath sounds in the bases. No wheezes, rales, or rhonchi. Breathing is nonlabored. Abdomen: Soft, nontender, nondistended. Extremities: No lower extremity edema. Psych: Alert and oriented. Procedures None Urinary Catheter: No Vascular Central Line Catheter: No A/P Problem List: (1) Acute exacerbation of congestive heart failure ICD Code: I50.9 Status: Acute (2) Chest pain ICD Code: R07.9 Status: Acute (3) DM (diabetes mellitus) ICD Code: E11.9 Status: Chronic (4) Hyperlipidemia ICD Code: E78.5 Status: Chronic (5) HTN (hypertension) ICD Code: I10 Status: Chronic Assessment and Plan 1. Acute exacerbation of chronic systolic congestive heart failure: Continue diuresis. Monitor on telemetry. 2. Chest pain: Patient has significant cardiac history. Follow serial cardiac enzymes and EKGs. Appreciate cardiology recommendations. Discussed with Dr. Henry. No further interventions at this time. Continue medical management. 3. Diabetes mellitus type 2: Hold metformin. Monitor Accu-Cheks and cover with sliding scale insulin. 4. Anxiety: Continue clonazepam as needed. 5. Nonischemic cardiomyopathy: Appreciate cardiology recommendations. Patient has a LifeVest, but is not wearing it at this time. He often refuses to wear the LifeVest. 6. History of PE, antiphospholipid antibody syndrome: INR is subtherapeutic. Continue Coumadin. Cover with Lovenox. 7. History of IV drug abuse: Patient counseled. No IV drug use in the last 7 months or so. 8. DVT prophylaxis: Coumadin, Lovenox. 9. Full code Discharge Planning Anticipate discharge home soon if symptoms improve. Problem Qualifiers (1) Acute exacerbation of congestive heart failure: Qualified Code: I50.23 - Acute on chronic systolic congestive heart failure Jalil Goodwin MD Jan 21, 2017 13:55
[2017-01-21] MEDS: WARFARIN SOD 4 MG TAB PO SCH (18:00)
[2017-01-22] VITALS (9 sets, daily range): BP systolic 102–117; BP diastolic 65–83; PULSE 82–98; RESP 16–18; TEMP 93.7–98.1; O2SAT 92–99
[2017-01-22 07:03] LABS: INTERNATIONAL NORMALIZED RATIO 1.1 RATIO; PROTHROMBIN TIME - PATIENT 11.8 SEC (9.8-11.6)
[2017-01-22 07:11] LABS: AUTOMATED NEUTROPHIL # 2.9 TH/MM3 (1.8-7.7); BASOPHIL # 0.1 TH/MM3 (0-0.2); BASOPHIL % 1.3 % (0.0-2.0); EOSINOPHIL # 0.2 TH/MM3 (0-0.4); EOSINOPHIL % 3.9 % (0.0-4.0); HEMATOCRIT 45.3 % (39.0-51.0); HEMO FLAGS DIFF FINAL; LYMPHOCYTE # 1.7 TH/MM3 (1.0-4.8); MEAN CELL VOLUME 87.9 FL (80.0-100.0); MEAN CORPUSCULAR HEMOGLOBIN 29.2 PG (27.0-34.0); MEAN CORPUSCULAR HGB CONC 33.2 % (32.0-36.0); MONO % 10.6 % (0.0-8.0); NEUT % 53.2 % (16.0-70.0); PLATELET COUNT 227 TH/MM3 (150-450); RED BLOOD COUNT 5.15 MIL/MM3 (4.50-5.90); RED CELL DISTRIBUTION WIDTH 18.4 % (11.6-17.2); WHITE BLOOD COUNT 5.4 TH/MM3 (4.0-11.0)
[2017-01-22] MEDS: FUROSEMIDE 40 MG/4 ML VIAL IV PUSH SCH ×2 (11:25→17:38)
[2017-01-22] MEDS: SODIUM CHLORIDE 0.9% FLUSH 10 ML FLUSH IV FLUSH SCH ×2 (11:25→21:00)
[2017-01-22] MEDS: METOPROLOL SUCCINATE 25 MG EXTENDED RELEASE TAB PO SCH (11:26)
[2017-01-22] MEDS: POTASSIUM CHLORIDE 20 MEQ CONTROLLED RELEASE TAB PO SCH ×2 (11:26→21:37)
[2017-01-22] MEDS: ASPIRIN EC 81 MG TABEC PO SCH (11:26)
[2017-01-22] MEDS: LISINOPRIL 5 MG TAB PO SCH (11:26)
[2017-01-22] MEDS: ENOXAPARIN SODIUM 80 MG/0.8 ML SYRINGE SQ SCH ×2 (11:26→21:37)
[2017-01-22] MEDS: clonazePAM 1 MG TAB PO PRN ×2 (11:54→21:37)
--- NOTE | 2017-01-22 13:09 | HHI.PR ---
Subjective Remarks Follow up chest pain, CHF. The patient continues to complain of chest pain, which he states is 8/10 and located in the center of his chest. Denies radiation of the pain. He also reports shortness of breath. Per nursing, he is not wearing his oxygen or his LifeVest. Objective Vitals Vital Signs Date Time Temp Pulse Resp B/P Pulse Ox O2 Delivery O2 Flow Rate FiO2 01/22/17 12:00 97.0 95 16 110/69 97 01/22/17 08:00 93.7 92 16 117/83 98 01/22/17 04:18 97.9 82 17 102/65 92 01/21/17 23:53 97.7 84 16 90/56 99 01/21/17 20:37 84 01/21/17 19:32 97.6 86 16 96/55 93 01/21/17 16:45 85 01/21/17 15:54 97.8 90 13 118/76 99 I/O 01/21/17 01/21/17 01/21/17 01/22/17 01/22/17 01/22/17 06:59 14:59 22:59 06:59 14:59 22:59 Output Total 1050 ml 725 ml Balance -1050 ml -725 ml Output Urine Total 1050 ml 725 ml # Voids 1 Result Diagram: 01/22/17 0629 01/21/17 [address] Angiography 01/20/17 0000 Signed Impressions: Service Date/Time: Friday, January 20, 2017 17:06 - CONCLUSION: Normal examination in regard to pulmonary embolism, none are seen. Bilateral pleural effusions left greater than right. Minimal atelectasis adjacent to the left pleural effusion Anthony Gillespie MD Chest X-Ray 01/19/17 2146 Signed Impressions: Service Date/Time: Thursday, January 19, 2017 21:44 - CONCLUSION: Mild pulmonary vascular congestion is suspected with small effusions. Duglas Celis MD Objective Remarks General: Elderly male in no acute distress. Heart: Regular rate and rhythm. No murmur. Lungs: Decreased breath sounds in the bases. No wheezes, rales, or rhonchi. Breathing is nonlabored. Abdomen: Soft, nontender, nondistended. Extremities: No lower extremity edema. Psych: Alert and oriented. Procedures None Urinary Catheter: No Vascular Central Line Catheter: No A/P Problem List: (1) Acute exacerbation of congestive heart failure ICD Code: I50.9 Status: Acute (2) Chest pain ICD Code: R07.9 Status: Acute (3) DM (diabetes mellitus) ICD Code: E11.9 Status: Chronic (4) Hyperlipidemia ICD Code: E78.5 Status: Chronic (5) HTN (hypertension) ICD Code: I10 Status: Chronic Assessment and Plan 1. Acute exacerbation of chronic systolic congestive heart failure: Continue diuresis. Monitor on telemetry. Continue supplemental oxygen. 2. Chest pain, atypical: Still reporting chest pain today. Patient has significant cardiac history. Follow serial cardiac enzymes and EKGs. Appreciate cardiology recommendations. Discussed with Dr. Henry. No further interventions at this time. Continue medical management. 3. Diabetes mellitus type 2: Hold metformin. Monitor Accu-Cheks and cover with sliding scale insulin. 4. Anxiety: Continue clonazepam as needed. 5. Nonischemic cardiomyopathy: Appreciate cardiology recommendations. Patient has a LifeVest, but is not wearing it at this time. He often refuses to wear the LifeVest. 6. History of PE, antiphospholipid antibody syndrome: INR is subtherapeutic. Continue Coumadin. Cover with Lovenox. 7. History of IV drug abuse: Patient counseled. No IV drug use in the last 7 months or so. 8. DVT prophylaxis: Coumadin, Lovenox. 9. Full code Discharge Planning Anticipate discharge home soon if symptoms improve. Problem Qualifiers (1) Acute exacerbation of congestive heart failure: Qualified Code: I50.23 - Acute on chronic systolic congestive heart failure Jalil Goodwin MD Jan 22, 2017 13:09
[2017-01-22] MEDS: WARFARIN SOD 4 MG TAB PO SCH (17:37)
[2017-01-22] MEDS ORDERED: ACETAMINOPHEN/HYDROcodone 325 MG/5 MG TAB PO ONE (21:45)
[2017-01-23] VITALS (7 sets, daily range): BP systolic 100–144; BP diastolic 61–80; PULSE 75–99; RESP 16–20; TEMP 97.3–97.8; O2SAT 96–99
[2017-01-23] MEDS: POTASSIUM CHLORIDE 20 MEQ CONTROLLED RELEASE TAB PO SCH ×2 (08:45→20:52)
[2017-01-23] MEDS: LISINOPRIL 5 MG TAB PO SCH (08:45)
[2017-01-23] MEDS: ASPIRIN EC 81 MG TABEC PO SCH (08:45)
[2017-01-23] MEDS: METOPROLOL SUCCINATE 25 MG EXTENDED RELEASE TAB PO SCH (08:46)
[2017-01-23] MEDS: SODIUM CHLORIDE 0.9% FLUSH 10 ML FLUSH IV FLUSH SCH ×2 (08:46→20:51)
[2017-01-23] MEDS: FUROSEMIDE 40 MG/4 ML VIAL IV PUSH SCH ×2 (08:46→16:55)
[2017-01-23] MEDS: ENOXAPARIN SODIUM 80 MG/0.8 ML SYRINGE SQ SCH ×2 (12:02→23:59)
[2017-01-23] MEDS ORDERED: DEXTROSE 50% IN WATER 50 ML VIAL(D50) IV PRN (15:15)
[2017-01-23] MEDS ORDERED: GLUCAGON 1 MG/ML VIAL OTHER PRN (15:15)
[2017-01-23] MEDS ORDERED: ACETAMINOPHEN/HYDROcodone 325 MG/5 MG TAB PO PRN (15:30)
--- NOTE | 2017-01-23 15:31 | HHI.PR ---
Subjective Remarks Follow-up chest pain. Patient reports that the pain in his chest is getting worse. He also reports pain that radiates down to his right foot. He also reports shortness of breath that is the same as yesterday. Objective Vitals Vital Signs Date Time Temp Pulse Resp B/P Pulse Ox O2 Delivery O2 Flow Rate FiO2 01/23/17 12:02 97.3 79 20 102/61 99 01/23/17 08:00 97.7 83 20 108/68 98 01/23/17 07:59 87 01/23/17 04:00 97.4 83 16 102/68 99 01/23/17 00:00 97.5 99 16 100/62 96 01/22/17 20:23 96 01/22/17 20:00 98.0 96 16 105/65 97 01/22/17 17:42 97.6 01/22/17 16:00 96.6 92 18 108/78 99 I/O 01/22/17 01/22/17 01/22/17 01/23/17 01/23/17 01/23/17 07:00 15:00 23:00 07:00 15:00 23:00 Intake Total 1320 ml 480 ml Output Total 1375 ml Balance -55 ml 480 ml Intake Oral 1320 ml 480 ml Output Urine Total 1375 ml # Voids 1 # Bowel Movements 1 1 Result Diagram: 01/22/17 0629 01/21/17 [address] Angiography 01/20/17 0000 Signed Impressions: Service Date/Time: Friday, January 20, 2017 17:06 - CONCLUSION: Normal examination in regard to pulmonary embolism, none are seen. Bilateral pleural effusions left greater than right. Minimal atelectasis adjacent to the left pleural effusion Anthony Gillespie MD Chest X-Ray 01/19/17 2146 Signed Impressions: Service Date/Time: Thursday, January 19, 2017 21:44 - CONCLUSION: Mild pulmonary vascular congestion is suspected with small effusions. Duglas Celis MD Objective Remarks General: Elderly male in no acute distress. Heart: Regular rate and rhythm. No murmur. Lungs: Decreased breath sounds in the bases. No wheezes, rales, or rhonchi. Breathing is nonlabored. Abdomen: Soft, nontender, nondistended. Extremities: No lower extremity edema. Psych: Alert and oriented. Procedures None Urinary Catheter: No Vascular Central Line Catheter: No A/P Problem List: (1) Acute exacerbation of congestive heart failure ICD Code: I50.9 Status: Acute (2) Chest pain ICD Code: R07.9 Status: Acute (3) DM (diabetes mellitus) ICD Code: E11.9 Status: Chronic (4) Hyperlipidemia ICD Code: E78.5 Status: Chronic (5) HTN (hypertension) ICD Code: I10 Status: Chronic Assessment and Plan 1. Acute exacerbation of chronic systolic congestive heart failure: Continue diuresis. Monitor on telemetry. Continue supplemental oxygen. 2. Chest pain, atypical: Patient has significant cardiac history. Follow serial cardiac enzymes and EKGs. Appreciate cardiology recommendations. Discussed with Dr. Henry. No further interventions at this time. Continue medical management. Pain is worse today with radiation down his right leg to the right foot. 3. Diabetes mellitus type 2: Hold metformin. Monitor Accu-Cheks and cover with sliding scale insulin. 4. Anxiety: Continue clonazepam as needed. 5. Nonischemic cardiomyopathy: Appreciate cardiology recommendations. Patient has a LifeVest, but is not wearing it at this time. He often refuses to wear the LifeVest. 6. History of PE, antiphospholipid antibody syndrome: INR is subtherapeutic. Continue Coumadin. Cover with Lovenox. 7. History of IV drug abuse: Patient counseled. No IV drug use in the last 7 months or so. 8. DVT prophylaxis: Coumadin, Lovenox. 9. Full code Discharge Planning Anticipate discharge home next 1-2 days if symptoms improve. Problem Qualifiers (1) Acute exacerbation of congestive heart failure: Qualified Code: I50.23 - Acute on chronic systolic congestive heart failure Jalil Goodwin MD Jan 23, 2017 15:31
[2017-01-23] MEDS: WARFARIN SOD 4 MG TAB PO SCH (16:55)
[2017-01-23] MEDS: ACETAMINOPHEN/HYDROcodone 325 MG/7.5 MG TAB PO PRN ×2 (16:56→20:52)
[2017-01-23] MEDS: INSULIN ASPART SUPPLEMENTAL SCALE SQ SCH ×2 (19:00→20:56)
[2017-01-23] MEDS: clonazePAM 1 MG TAB PO PRN (20:52)
[2017-01-24] VITALS (8 sets, daily range): BP systolic 99–132; BP diastolic 55–79; PULSE 79–90; RESP 18–20; TEMP 97–98.6; O2SAT 93–98
[2017-01-24] MEDS: ACETAMINOPHEN/HYDROcodone 325 MG/7.5 MG TAB PO PRN ×4 (02:56→18:25)
[2017-01-24] MEDS: INSULIN ASPART SUPPLEMENTAL SCALE SQ SCH ×4 (06:33→21:31)
[2017-01-24 06:39] LABS: PROTHROMBIN TIME - PATIENT 11.1 SEC (9.8-11.6)
[2017-01-24] MEDS: FUROSEMIDE 40 MG/4 ML VIAL IV PUSH SCH (08:50)
[2017-01-24] MEDS: SODIUM CHLORIDE 0.9% FLUSH 10 ML FLUSH IV FLUSH SCH ×2 (08:50→21:26)
[2017-01-24] MEDS: POTASSIUM CHLORIDE 20 MEQ CONTROLLED RELEASE TAB PO SCH ×2 (08:51→21:25)
[2017-01-24] MEDS: ASPIRIN EC 81 MG TABEC PO SCH (08:51)
[2017-01-24] MEDS: METOPROLOL SUCCINATE 25 MG EXTENDED RELEASE TAB PO SCH (08:52)
[2017-01-24] MEDS: LISINOPRIL 5 MG TAB PO SCH (08:52)
[2017-01-24] MEDS: ENOXAPARIN SODIUM 80 MG/0.8 ML SYRINGE SQ SCH ×2 (08:52→21:25)
[2017-01-24] MEDS: clonazePAM 1 MG TAB PO PRN ×2 (08:53→21:35)
--- NOTE | 2017-01-24 12:07 | HHI.PR ---
Subjective Remarks comfortable in bed- laying flat no complains of chest pains or shortness of breath with rest Objective Vitals Vital Signs Date Time Temp Pulse Resp B/P Pulse Ox O2 Delivery O2 Flow Rate FiO2 01/24/17 10:23 20 01/24/17 08:00 97.0 88 18 132/79 98 01/24/17 04:00 97.6 79 18 110/63 93 01/24/17 00:00 97.2 80 18 99/58 95 01/23/17 20:00 97.8 85 20 144/80 98 01/23/17 20:00 89 01/23/17 16:00 97.8 75 20 108/72 97 I/O 01/23/17 01/23/17 01/23/17 01/24/17 01/24/17 01/24/17 07:00 15:00 23:00 07:00 15:00 23:00 Intake Total 480 ml 720 ml Balance 480 ml 720 ml Intake Oral 480 ml 720 ml # Voids 1 6 1 0 # Bowel Movements 1 0 0 0 Result Diagram: 01/22/17 0629 01/21/17 [address] Angiography 01/20/17 0000 Signed Impressions: Service Date/Time: Friday, January 20, 2017 17:06 - CONCLUSION: Normal examination in regard to pulmonary embolism, none are seen. Bilateral pleural effusions left greater than right. Minimal atelectasis adjacent to the left pleural effusion Anthony Gillespie MD Chest X-Ray 01/19/17 2146 Signed Impressions: Service Date/Time: Thursday, January 19, 2017 21:44 - CONCLUSION: Mild pulmonary vascular congestion is suspected with small effusions. Duglas Celis MD Objective Remarks anicteric regular rhythm no rales or wheezes abdomen soft, nontender extremities no edema neuro exam- non focal Procedures None A/P Problem List: (1) Acute exacerbation of congestive heart failure ICD Code: I50.9 Status: Acute (2) Chest pain ICD Code: R07.9 Status: Acute (3) DM (diabetes mellitus) ICD Code: E11.9 Status: Chronic (4) Hyperlipidemia ICD Code: E78.5 Status: Chronic (5) HTN (hypertension) ICD Code: I10 Status: Chronic Assessment and Plan 71 years old 1. Acute exacerbation of chronic systolic congestive heart failure: Continue diuresis. Monitor on telemetry. Continue supplemental oxygen. change to po 2. Chest pain, atypical: Patient has significant cardiac history. Follow serial cardiac enzymes and EKGs. Appreciate cardiology recommendations. Discussed with Dr. Henry. No further interventions at this time. Continue medical management. Pain right leg to the right foot.- improved- no complains 3. Diabetes mellitus type 2: Hold metformin. Monitor Accu-Cheks and cover with sliding scale insulin. 4. Anxiety: Continue clonazepam as needed. 5. Nonischemic cardiomyopathy: Appreciate cardiology recommendations. Patient has a LifeVest, but is not wearing it at this time. He often refuses to wear the LifeVest. 6. History of PE, antiphospholipid antibody syndrome: INR is subtherapeutic. Continue Coumadin. Cover with Lovenox. IN crease coumadin to 5 mg daily 7. History of IV drug abuse: Patient counseled. No IV drug use in the last 7 months or so. 8. DVT prophylaxis: Coumadin, Lovenox. 9. Full code Problem Qualifiers (1) Acute exacerbation of congestive heart failure: Qualified Code: I50.23 - Acute on chronic systolic congestive heart failure Sandra Grissom MD Jan 24, 2017 12:07
[2017-01-24] MEDS ORDERED: WARFARIN SOD 1 MG TAB PO ONE (16:00)
[2017-01-24] MEDS: WARFARIN SOD 5 MG TAB PO SCH (16:25)
[2017-01-24] MEDS: FUROSEMIDE 40 MG TAB PO SCH (16:25)
[2017-01-25] VITALS (7 sets, daily range): BP systolic 95–163; BP diastolic 53–70; PULSE 75–98; RESP 18–20; TEMP 97.2–97.6; O2SAT 94–100
[2017-01-25] MEDS: clonazePAM 1 MG TAB PO PRN ×2 (05:49→21:14)
[2017-01-25] MEDS: INSULIN ASPART SUPPLEMENTAL SCALE SQ SCH ×4 (06:01→21:22)
[2017-01-25 08:27] LABS: BICARBONATE 27.4 MEQ/L (21.0-32.0); POTASSIUM 4.6 MEQ/L (3.5-5.1); PROTHROMBIN TIME - PATIENT 11.3 SEC (9.8-11.6)
[2017-01-25] MEDS: ASPIRIN EC 81 MG TABEC PO SCH (09:23)
[2017-01-25] MEDS: POTASSIUM CHLORIDE 20 MEQ CONTROLLED RELEASE TAB PO SCH ×2 (09:23→19:19)
[2017-01-25] MEDS: SODIUM CHLORIDE 0.9% FLUSH 10 ML FLUSH IV FLUSH SCH ×2 (09:23→19:19)
[2017-01-25] MEDS: FUROSEMIDE 40 MG TAB PO SCH ×2 (09:24→16:18)
[2017-01-25] MEDS: METOPROLOL SUCCINATE 25 MG EXTENDED RELEASE TAB PO SCH (09:24)
[2017-01-25] MEDS: LISINOPRIL 5 MG TAB PO SCH (09:24)
[2017-01-25] MEDS: ENOXAPARIN SODIUM 80 MG/0.8 ML SYRINGE SQ SCH ×2 (09:24→21:23)
[2017-01-25] MEDS: ACETAMINOPHEN/HYDROcodone 325 MG/7.5 MG TAB PO PRN ×3 (09:25→19:18)
--- NOTE | 2017-01-25 14:43 | HHI.PR ---
Subjective Remarks no complains wants to take a shower Objective Vitals Vital Signs Date Time Temp Pulse Resp B/P Pulse Ox O2 Delivery O2 Flow Rate FiO2 01/25/17 11:50 18 01/25/17 08:00 97.5 89 18 111/62 94 01/25/17 04:00 97.6 75 18 96/61 99 01/25/17 00:00 97.6 78 20 95/53 96 01/24/17 20:18 84 01/24/17 20:00 97.8 82 20 100/55 96 01/24/17 18:29 90 01/24/17 16:00 98.6 86 18 105/56 97 I/O 01/24/17 01/24/17 01/24/17 01/25/17 01/25/17 01/25/17 07:00 15:00 23:00 07:00 15:00 23:00 Intake Total 720 ml 340 ml Balance 720 ml 340 ml Intake Oral 720 ml 340 ml # Voids 3 2 # Bowel Movements 1 Result Diagram: 01/22/17 0629 01/25/17 [address] Angiography 01/20/17 0000 Signed Impressions: Service Date/Time: Friday, January 20, 2017 17:06 - CONCLUSION: Normal examination in regard to pulmonary embolism, none are seen. Bilateral pleural effusions left greater than right. Minimal atelectasis adjacent to the left pleural effusion Anthony Gillespie MD Chest X-Ray 01/19/17 2146 Signed Impressions: Service Date/Time: Thursday, January 19, 2017 21:44 - CONCLUSION: Mild pulmonary vascular congestion is suspected with small effusions. Duglas Celis MD Objective Remarks anicteric regular rhythm no rales or wheezes abdomen soft, nontender extremities no edema neuro exam- non focal Procedures None A/P Problem List: (1) Acute exacerbation of congestive heart failure ICD Code: I50.9 Status: Acute (2) Chest pain ICD Code: R07.9 Status: Acute (3) DM (diabetes mellitus) ICD Code: E11.9 Status: Chronic (4) Hyperlipidemia ICD Code: E78.5 Status: Chronic (5) HTN (hypertension) ICD Code: I10 Status: Chronic Assessment and Plan 71 years old 1. Acute exacerbation of chronic systolic congestive heart failure: Continue diuresis. Monitor on telemetry. Continue supplemental oxygen. change to po Lasix 2. Chest pain, atypical: Patient has significant cardiac history. Follow serial cardiac enzymes and EKGs. Appreciate cardiology recommendations. Continue medical management. 3. Diabetes mellitus type 2: Monitor Accu-Cheks and cover with sliding scale insulin. Restart Metformin 4. Anxiety: Continue clonazepam as needed. 5. Nonischemic cardiomyopathy: Appreciate cardiology recommendations. Patient has a LifeVest, but is not wearing it at this time. He often refuses to wear the LifeVest. 6. History of PE, antiphospholipid antibody syndrome: INR is subtherapeutic. Continue Coumadin. Cover with Lovenox. IN crease coumadin to 5 mg daily 7. History of IV drug abuse: Patient counseled. No IV drug use in the last 7 months or so. 8. DVT prophylaxis: Coumadin, Lovenox. 9. Full code Problem Qualifiers (1) Acute exacerbation of congestive heart failure: Qualified Code: I50.23 - Acute on chronic systolic congestive heart failure Sandra Grissom MD Jan 25, 2017 14:43 Sandra Grissom MD Jan 25, 2017 14:43
[2017-01-25] MEDS ORDERED: WARFARIN SOD 2.5 MG TAB PO ONE (16:00)
[2017-01-25] MEDS: metFORMIN HCL 500 MG TAB PO SCH (16:17)
[2017-01-25] MEDS: WARFARIN SOD 5 MG TAB PO SCH (16:18)
[2017-01-26] VITALS (7 sets, daily range): BP systolic 97–113; BP diastolic 53–68; PULSE 76–88; RESP 20; TEMP 97.2–98.7; O2SAT 92–100
[2017-01-26] MEDS: ACETAMINOPHEN/HYDROcodone 325 MG/7.5 MG TAB PO PRN ×4 (00:13→20:34)
[2017-01-26] MEDS: INSULIN ASPART SUPPLEMENTAL SCALE SQ SCH ×4 (06:13→20:49)
[2017-01-26 07:10] LABS: INTERNATIONAL NORMALIZED RATIO 1.1 RATIO
[2017-01-26] MEDS: FUROSEMIDE 40 MG TAB PO SCH ×2 (08:34→17:19)
[2017-01-26] MEDS: POTASSIUM CHLORIDE 20 MEQ CONTROLLED RELEASE TAB PO SCH ×2 (08:34→20:33)
[2017-01-26] MEDS: METOPROLOL SUCCINATE 25 MG EXTENDED RELEASE TAB PO SCH (08:34)
[2017-01-26] MEDS: LISINOPRIL 5 MG TAB PO SCH (08:34)
[2017-01-26] MEDS: ASPIRIN EC 81 MG TABEC PO SCH (08:34)
[2017-01-26] MEDS: metFORMIN HCL 500 MG TAB PO SCH (08:34)
[2017-01-26] MEDS: SODIUM CHLORIDE 0.9% FLUSH 10 ML FLUSH IV FLUSH SCH ×2 (08:35→20:35)
--- NOTE | 2017-01-26 08:46 | HHI.PR ---
Subjective Remarks no complain of chest pains or shortness of breath telemetry in SR- overnight states depressed- some "home situation", requesting to see a psychiatrist reviewed telemetry- yesterday episodes of rapid a fib- asymptomatic Objective Vitals Vital Signs Date Time Temp Pulse Resp B/P Pulse Ox O2 Delivery O2 Flow Rate FiO2 01/26/17 04:00 97.2 79 20 97/68 100 01/25/17 20:00 97.5 98 18 140/70 100 01/25/17 20:00 85 01/25/17 18:36 94 01/25/17 16:00 97.4 80 18 112/65 96 01/25/17 15:50 20 01/25/17 12:00 97.2 78 18 163/65 96 I/O 01/25/17 01/25/17 01/25/17 01/26/17 01/26/17 01/26/17 06:59 14:59 22:59 06:59 14:59 22:59 Intake Total 3000 ml 2 ml Balance 3000 ml 2 ml Intake Oral 3000 ml IV Total 2 ml # Voids 4 # Bowel Movements 0 Result Diagram: 01/22/17 0629 01/25/17 [address] Angiography 01/20/17 0000 Signed Impressions: Service Date/Time: Friday, January 20, 2017 17:06 - CONCLUSION: Normal examination in regard to pulmonary embolism, none are seen. Bilateral pleural effusions left greater than right. Minimal atelectasis adjacent to the left pleural effusion Anthony Gillespie MD Chest X-Ray 01/19/176 Signed Impressions: Service Date/Time: Thursday, January 19, 2017 21:44 - CONCLUSION: Mild pulmonary vascular congestion is suspected with small effusions. Duglas Celis MD Objective Remarks anicteric regular rhythm no rales or wheezes abdomen soft, nontender extremities no edema neuro exam- non focal Procedures None A/P Problem List: (1) Acute exacerbation of congestive heart failure ICD Code: I50.9 Status: Acute (2) Chest pain ICD Code: R07.9 Status: Acute (3) DM (diabetes mellitus) ICD Code: E11.9 Status: Chronic (4) Hyperlipidemia ICD Code: E78.5 Status: Chronic (5) HTN (hypertension) ICD Code: I10 Status: Chronic Assessment and Plan 71 years old 1. Acute exacerbation of chronic systolic congestive heart failure- IMproved. : . bid po Lasix Intermittent a fib- on BB. continue coumadin- INR subtherapeutic- on Lovenox + coumadin. Increase toprol to 37.5 mg daily Monitor with activity on telemetry 2. Chest pain, atypical: Patient has significant cardiac history. Follow serial cardiac enzymes and EKGs. Appreciate cardiology recommendations. Continue medical management. 3. Diabetes mellitus type 2: Monitor Accu-Cheks and cover with sliding scale insulin. Restart Metformin 4. Anxiety: Continue clonazepam as needed. 5. Nonischemic cardiomyopathy: Appreciate cardiology recommendations. Patient has a LifeVest, but is not wearing it at this time. He often refuses to wear the LifeVest. 6. History of PE, antiphospholipid antibody syndrome: INR is subtherapeutic. Continue Coumadin. Cover with Lovenox. IN crease coumadin to 5 mg daily- give extra 2.5 today 7. History of IV drug abuse: Patient counseled. No IV drug use in the last 7 months or so. 8. DVT prophylaxis: Coumadin, Lovenox. 9. Full code Depression- psychiatry consult Problem Qualifiers (1) Acute exacerbation of congestive heart failure: Qualified Code: I50.23 - Acute on chronic systolic congestive heart failure Sandra Grissom MD Jan 26, 2017 08:46
[2017-01-26] MEDS ORDERED: PILL SPLITTER OTHER PRN (09:45)
[2017-01-26] MEDS ORDERED: METOPROLOL SUCCINATE 25 MG EXTENDED RELEASE TAB PO ONE (09:45)
[2017-01-26] MEDS: ENOXAPARIN SODIUM 80 MG/0.8 ML SYRINGE SQ SCH ×2 (11:00→23:42)
[2017-01-26] MEDS ORDERED: ACETAMINOPHEN/HYDROcodone 325 MG/5 MG TAB PO PRN (12:00)
--- NOTE | 2017-01-26 15:35 | PD.PSY.CON ---
Provisional Diagnosis Admission Date Jan 19, 2017 at 23:53 Zeigler I. Adjustment disorder with depressed mood, cannabis use disorder. Amphetamines and opiates disorder, in sustained full remission Zeigler II. Deferred Zeigler III. CHF, DM Zeigler IV. History of IV drug use, incarcerations Zeigler V. 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 Consulted to psychiatry due to depressive symptoms. On psychiatric evaluation patient is calm, cooperative and pleasant. Patient says that he has been developing depressive symptoms in the last days due to his medical condition and length of hospitalization. Patient also reports that he has a problem at home that he has to face. 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 Patient says that he is debating between living his to part of or calling the police. He says that he is afraid of being involved in legal issues. He has been in half-way multiple times in the past and he doesn't want to go back. He says that he has been anxious, with continued intrusive thoughts, and difficulty sleeping at night, poor concentration, low level energy, but he denies hopelessness, he denies helplessness, he denies suicidal and homicidal ideation, he denies visual and auditory hallucinations. Patient is oriented 3, and attention deficit, no supervision of consciousness. Patient reports a multiple daily use of marijuana , but denies the use of other drugs and alcohol. Review of Systems Constitutional: DENIES: Diaphoretic episodes, Fatigue, Fever, Weight gain, Weight loss, Chills, Dizziness, Change in appetite, Night Sweats Endocrine: DENIES: Heat/cold intolerance, Polydipsia, Polyuria, Polyphagia Eyes: DENIES: Blurred vision, Diplopia, Eye inflammation, Eye pain, Vision loss , Photosensitivity, Double Vision Ears, nose, mouth, throat: DENIES: Tinnitus, Hearing loss, Vertigo, Nasal discharge, Oral lesions, Throat pain, Hoarseness, Ear Pain, Running Nose, Epistaxis, Sinus Pain, Toothache, Odynophagia Gastrointestinal: DENIES: Abdominal pain, Black stools, Bloody stools, Constipation, Diarrhea, Nausea, Vomiting, Difficulty Swallowing, Anorexia Musculoskeletal: DENIES: Joint pain, Muscle aches, Stiffness, Joint Swelling, Back pain, Neck pain Integumentary: DENIES: Abnormal pigmentation, Nail changes, Pruritus, Rash Hematologic/lymphatic: DENIES: Bruising, Lymphadenopathy Immunologic/allergic: DENIES: Eczema, Urticaria Neurologic: DENIES: Abnormal gait, Headache, Localized weakness, Paresthesias, Seizures, Speech Problems, Tremor, Poor Balance Psychiatric: DENIES: Anxiety, Confusion, Mood changes, Depression, Hallucinations, Agitation, Suicidal Ideation, Homicidal Ideation, Delusions Past Family Social History Coded Allergies: Morphine (Verified Allergy, Severe, Itching, 01/19/17) *MDRO Multi-Drug Resistant Organism (Verified Adverse Reaction, Unknown, ) 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/16 Active Scripts Warfarin 4 Mg Tab4 Mg PO DAILY #30 TAB Ref 0 Prov:Jeferson Crane DO 12/05/16 Torsemide 20 Mg Tab20 Mg PO DAILY #90 TAB Ref 0 Prov:Jeferson Crane DO 12/05/16 Clonazepam (Klonopin)1 Mg Tab1 Mg PO Q8HR PRN (MODERATE TO SEVERE ANXIETY) #30 TAB Prov:Jeferson Crane DO 12/05/16 Metoprolol Succinate ER 24 HR 25 Mg Tab25 Mg PO DAILY #30 TAB Prov:Jeferson Crane DO 12/05/16 Lisinopril 5 Mg Tab5 Mg PO DAILY #30 TAB Prov:Krystal Arteaga PA-C 11/03/[address] (Aspirin 81)81 Mg Tabdr81 Mg PO DAILY Ref 0 01/19/17 Hydrocodone-Acetaminophen (Zavalla)10-325 Mg Tab1 Tab PO Q8HR PRN (PAIN) Ref 0 01/19/17 Metformin 500 Mg Sdw670 Mg PO DAILY #30 TAB Ref 0 With a meal 11/21/16 Discontinued Scripts Spironolactone (Aldactone)25 Mg Tab25 Mg PO DAILY #30 TAB Prov:Jeferson Crane DO 12/05/16 Hydrocodone-Acetaminophen 5-325 mg Tab1 Tab PO Q6H PRN (PAIN SCALE 5 TO 10) #28 TAB Prov:Jeferson Crane DO 12/05/16 Famotidine 20 Mg Tab20 Mg PO BID #60 TAB Prov:Alex Alicea MD 11/24/16 Current Medications Medications (Trade) Dose Ordered Sig/Keiko Route Start Time Stop Time Status Last Admin (NS Flush) 2 ml UNSCH PRN IV FLUSH 01/20/17 00:00 (NS Flush) 2 ml BID IV FLUSH 01/20/17 09:00 01/26/17 08:35 (Narcan Inj) 0.4 mg UNSCH PRN IV 01/20/17 00:00 (KCl) 20 meq Q12HR PO 01/20/17 09:00 01/26/17 08:34 (Ecotrin Ec) 81 mg DAILY PO 01/20/17 10:00 01/26/17 08:34 (KlonoPIN) 1 mg Q8HR PRN PO 01/20/17 10:00 01/25/17 21:14 (Prinivil) 5 mg DAILY PO 01/21/17 09:00 01/26/17 08:34 (Lovenox Inj) 70 mg Q12H SQ 01/20/17 11:00 01/26/17 11:00 (D50w (Vial) Inj) 50 ml UNSCH PRN IV 01/23/17 15:15 Glucagon 1 mg 1 mg UNSCH PRN OTHER 01/23/17 15:15 (Coumadin Consult Pharmacy) 0 ml @ 0 mls/hr UNSCH OTHER 01/23/17 15:30 (Coumadin) 5 mg DAILY@16 PO 01/24/17 16:00 01/25/17 16:18 (Lasix) 40 mg BID@09,18 PO 01/24/17 18:00 01/26/17 08:34 (Glucophage) 500 mg DAILY PO 01/25/17 14:45 01/26/17 08:34 (Toprol Xl) 37.5 mg DAILY PO 01/27/17 09:00 (Zavalla 5-325 Mg) 1 tab Q6H PRN PO 01/26/17 12:00 (Zavalla 7.5-325 Mg) 1 tab Q6H PRN PO 01/26/17 12:00 01/26/17 12:38 (Coumadin) 2.5 mg ONCE@1600 ONCE PO 01/26/17 16:00 01/26/17 16:01 (Pill Splitter) 1 ea UNSCH PRN OTHER 01/26/17 09:45 (Desyrel) 100 mg HS PO 01/26/17 21:00 UNV Family History He denies family psychiatric history Social History Patient was born and raised in [place], he lives in [facility] with a roommate, he is single, has one son, unemployed, retired, highest level of education is an associate degree Patient's Strengths (min. 2) Verbal communication Physical Exam On physical exam, no psychomotor retardation or agitation, no tremors, no withdrawal, no EPS, no stiffness, no weakness Vital Signs Vital Signs Date Time Temp Pulse Resp B/P Pulse Ox O2 Delivery O2 Flow Rate FiO2 01/26/17 12:00 97.5 83 20 113/54 100 I/O 01/25/17 01/25/17 01/26/17 08:00 16:00 00:00 Intake Total 3000 ml 2 ml Balance 3000 ml 2 ml Lab Results Result Diagram: 01/22/17 0629 01/25/17 0732 Mental Status Examination Appearance man, age appearing, good hygiene, hospital [facility], calm and cooperative Speech: Unremarkable Orientation: x3 Memory: Unremarkable Thought Process: Logical Thought Content: Unremarkable Language Fluent and spontaneous Fund of Knowledge Adequate for level of education Hallucination Type: None Attention and Concentration: Good Suicidal Ideation: No Previous Suicide Attempts: No Homicidal Ideation: No Previous Homicide Attempts: No Insight: Good Affect: Good Mood: Appropriate Assessment & Plan Problem List: (1) Adjustment disorder with mixed anxiety and depressed mood Assessment & Plan: On psychiatric evaluation today patient reports mild to moderate symptoms of depression consisting on sad mood, intrusive thoughts, anxiety, poor sleep at night, low level of energy, decreased concentration and appetite in the context of identifiable acute stressors. He denies suicidal and homicidal ideation, he denies visual and auditory hallucinations. He is oriented 3, logical, coherent and relevant. At this moment he does not meet criteria for psychiatric admission. He would benefit of outpatient psychotherapy. We will start Trazodone 100 mg at bedtime to help with depression and sleep. Extensive support, motivation and psychoeducation provided. Consult appreciated. ICD Code: F43.23 Assessment & Plan Estimated LOS: days Osvaldo Mayes MD Jan 26, 2017 15:35
[2017-01-26] MEDS ORDERED: WARFARIN SOD 2.5 MG TAB PO ONE (16:00)
[2017-01-26] MEDS: WARFARIN SOD 5 MG TAB PO SCH (17:19)
[2017-01-26] MEDS: traZODone HCL 100 MG TAB PO SCH (20:33)
[2017-01-26] MEDS: clonazePAM 1 MG TAB PO PRN (23:42)
[2017-01-27] VITALS (8 sets, daily range): BP systolic 95–134; BP diastolic 53–78; PULSE 75–91; RESP 18; TEMP 97.4–98.8; O2SAT 95–98
[2017-01-27] MEDS: INSULIN ASPART SUPPLEMENTAL SCALE SQ SCH ×4 (06:38→23:33)
[2017-01-27 09:15] LABS: INTERNATIONAL NORMALIZED RATIO 1.2 RATIO; PROTHROMBIN TIME - PATIENT 13.9 SEC (9.8-11.6)
[2017-01-27] MEDS: FUROSEMIDE 40 MG TAB PO SCH ×2 (09:20→16:36)
[2017-01-27] MEDS: ASPIRIN EC 81 MG TABEC PO SCH (09:20)
[2017-01-27] MEDS: metFORMIN HCL 500 MG TAB PO SCH (09:20)
[2017-01-27] MEDS: LISINOPRIL 5 MG TAB PO SCH (09:20)
[2017-01-27] MEDS: POTASSIUM CHLORIDE 20 MEQ CONTROLLED RELEASE TAB PO SCH ×2 (09:21→20:20)
[2017-01-27] MEDS: SODIUM CHLORIDE 0.9% FLUSH 10 ML FLUSH IV FLUSH SCH ×2 (09:21→20:20)
[2017-01-27] MEDS: METOPROLOL SUCCINATE 25 MG EXTENDED RELEASE TAB PO SCH (09:21)
[2017-01-27] MEDS: ACETAMINOPHEN/HYDROcodone 325 MG/7.5 MG TAB PO PRN ×2 (12:41→20:20)
[2017-01-27] MEDS: ENOXAPARIN SODIUM 80 MG/0.8 ML SYRINGE SQ SCH ×2 (12:42→23:29)
--- NOTE | 2017-01-27 15:13 | HHI.PR ---
Subjective Remarks no complains but still feels "not right" denies any suicidial ideations Objective Vitals Vital Signs Date Time Temp Pulse Resp B/P Pulse Ox O2 Delivery O2 Flow Rate FiO2 01/27/17 12:00 98.8 81 18 134/78 98 01/27/17 08:15 Room Air 01/27/17 08:00 97.4 76 18 98/54 95 01/27/17 04:00 97.8 76 18 96/54 95 01/27/17 04:00 Room Air 01/27/17 00:09 97.7 80 18 95/53 97 01/27/17 00:09 Room Air 01/26/17 20:45 Room Air 01/26/17 20:45 98.7 83 20 112/53 97 01/26/17 20:19 76 01/26/17 16:00 98.3 80 20 106/61 98 I/O 01/26/17 01/26/17 01/26/17 01/27/17 01/27/17 01/27/17 06:59 14:59 22:59 06:59 14:59 22:59 Intake Total 480 ml Balance 480 ml Intake Oral 480 ml # Voids 6 2 0 # Bowel Movements 1 0 0 Result Diagram: 01/25/17 [address] Angiography 01/20/17 0000 Signed Impressions: Service Date/Time: Friday, January 20, 2017 17:06 - CONCLUSION: Normal examination in regard to pulmonary embolism, none are seen. Bilateral pleural effusions left greater than right. Minimal atelectasis adjacent to the left pleural effusion Anthony Gillespie MD Chest X-Ray 01/19/17 2146 Signed Impressions: Service Date/Time: Thursday, January 19, 2017 21:44 - CONCLUSION: Mild pulmonary vascular congestion is suspected with small effusions. Duglas Celis MD Objective Remarks anicteric regular rhythm no rales or wheezes abdomen soft, nontender extremities no edema neuro exam- non focal Procedures None A/P Problem List: (1) Acute exacerbation of congestive heart failure ICD Code: I50.9 Status: Acute (2) Chest pain ICD Code: R07.9 Status: Acute (3) DM (diabetes mellitus) ICD Code: E11.9 Status: Chronic (4) Hyperlipidemia ICD Code: E78.5 Status: Chronic (5) HTN (hypertension) ICD Code: I10 Status: Chronic Assessment and Plan 71 years old 1. Acute exacerbation of chronic systolic congestive heart failure- IMproved. : . bid po Lasix Intermittent a fib- on BB. continue coumadin- INR subtherapeutic- on Lovenox + coumadin. Increase toprol to 37.5 mg daily Monitor with activity on telemetry 2. Chest pain, atypical: Patient has significant cardiac history. troponins negative. Appreciate cardiology recommendations. Continue medical management. 3. Diabetes mellitus type 2: Monitor Accu-Cheks and cover with sliding scale insulin. Restart Metformin 4. Anxiety: Continue clonazepam as needed. 5. Nonischemic cardiomyopathy: Appreciate cardiology recommendations. Patient has a LifeVest, but is not wearing it at this time. He often refuses to wear the LifeVest. 6. History of PE, antiphospholipid antibody syndrome: INR is subtherapeutic. Continue Coumadin. Cover with Lovenox. IN crease coumadin to 5 mg daily- give extra 2.5 today gove total 10 mg today 7. History of IV drug abuse: Patient counseled. No IV drug use in the last 7 months or so. 8. DVT prophylaxis: Coumadin, Lovenox. 9. Full code Depression- psychiatry consult- medical management- Add TRazodone 100 mg hs Problem Qualifiers (1) Acute exacerbation of congestive heart failure: Qualified Code: I50.23 - Acute on chronic systolic congestive heart failure Sandra Grissom MD Jan 27, 2017 3:13 pm
[2017-01-27] MEDS ORDERED: WARFARIN SOD 2.5 MG TAB PO ONE (16:00)
[2017-01-27] MEDS ORDERED: WARFARIN SOD 5 MG TAB PO ONE (16:00)
[2017-01-27] MEDS: WARFARIN SOD 5 MG TAB PO SCH (16:35)
[2017-01-27] MEDS: traZODone HCL 100 MG TAB PO SCH (20:20)
[2017-01-27] MEDS ORDERED: traZODone HCL 100 MG TAB PO SCH (21:00)
[2017-01-27] MEDS: clonazePAM 1 MG TAB PO PRN (23:28)
[2017-01-28] VITALS: BP 100/55; PULSE 77; RESP 19; TEMP 97.4; O2SAT 98
[2017-01-28] MEDS: ACETAMINOPHEN/HYDROcodone 325 MG/7.5 MG TAB PO PRN ×3 (02:52→22:12)
[2017-01-28 04:00] VITALS: BP 92/57; PULSE 76; RESP 19; TEMP 97.5; O2SAT 96
[2017-01-28] MEDS: INSULIN ASPART SUPPLEMENTAL SCALE SQ SCH ×4 (06:43→22:22)
[2017-01-28 08:00] VITALS: BP 117/70; PULSE 71; PULSE 89; RESP 16; TEMP 98.3; O2SAT 100
[2017-01-28 08:59] LABS: INTERNATIONAL NORMALIZED RATIO 1.5 RATIO; PROTHROMBIN TIME - PATIENT 16.3 SEC (9.8-11.6)
[2017-01-28] MEDS: POTASSIUM CHLORIDE 20 MEQ CONTROLLED RELEASE TAB PO SCH ×2 (09:06→22:11)
[2017-01-28] MEDS: FUROSEMIDE 40 MG TAB PO SCH ×2 (09:06→17:25)
[2017-01-28] MEDS: LISINOPRIL 5 MG TAB PO SCH (09:06)
[2017-01-28] MEDS: METOPROLOL SUCCINATE 25 MG EXTENDED RELEASE TAB PO SCH (09:08)
[2017-01-28] MEDS: ASPIRIN EC 81 MG TABEC PO SCH (09:09)
[2017-01-28] MEDS: SODIUM CHLORIDE 0.9% FLUSH 10 ML FLUSH IV FLUSH SCH ×2 (09:09→22:11)
[2017-01-28] MEDS: metFORMIN HCL 500 MG TAB PO SCH (09:09)
--- NOTE | 2017-01-28 09:36 | HHI.PR ---
Subjective Remarks no complains eating po 100%, no nausea or vomitingappears really very at home encrourage to up and ambulate- prefers a cane - d/w PTY- they will get him one here on [place]- he will get one at [facility] Objective Vitals Vital Signs Date Time Temp Pulse Resp B/P Pulse Ox O2 Delivery O2 Flow Rate FiO2 01/28/17 04:00 97.5 76 19 92/57 96 01/28/17 04:00 Room Air 01/28/17 00:00 Room Air 01/28/17 00:00 97.4 77 19 100/55 98 01/27/17 20:36 85 01/27/17 20:00 97.8 84 18 112/65 95 01/27/17 20:00 Room Air 01/27/17 16:00 98.6 91 18 122/70 97 01/27/17 12:00 98.8 81 18 134/78 98 I/O 01/27/17 01/27/17 01/27/17 01/28/17 01/28/17 01/28/17 07:00 15:00 23:00 07:00 15:00 23:00 Intake Total 960 ml 480 ml 480 ml Balance 960 ml 480 ml 480 ml Intake Oral 960 ml 480 ml 480 ml # Voids 0 3 1 2 # Bowel Movements 0 0 Result Diagram: 01/25/17 0732 Imaging Vital Signs Date Time Temp Pulse Resp B/P Pulse Ox O2 Delivery O2 Flow Rate FiO2 01/28/17 04:00 97.5 76 19 92/57 96 01/28/17 04:00 Room Air 01/28/17 00:00 Room Air 01/28/17 00:00 97.4 77 19 100/55 98 01/27/17 20:36 85 01/27/17 20:00 97.8 84 18 112/65 95 01/27/17 20:00 Room Air 01/27/17 16:00 98.6 91 18 122/70 97 01/27/17 12:00 98.8 81 18 134/78 98 Objective Remarks not in distress anicteric regular rhythm no rales or wheezes abdomen soft, nontender extremities no edema neuro exam- non focal Procedures None A/P Problem List: (1) Acute exacerbation of congestive heart failure ICD Code: I50.9 Status: Acute (2) Chest pain ICD Code: R07.9 Status: Acute (3) DM (diabetes mellitus) ICD Code: E11.9 Status: Chronic (4) Hyperlipidemia ICD Code: E78.5 Status: Chronic (5) HTN (hypertension) ICD Code: I10 Status: Chronic Assessment and Plan 71 years old 1. Acute exacerbation of chronic systolic congestive heart failure- IMproved. : . bid po Lasix Intermittent a fib- on BB. continue coumadin- INR subtherapeutic- on Lovenox + coumadin. Increase toprol to 37.5 mg daily Nonischemic cardiomyopathy: Appreciate cardiology recommendations. Patient has a LifeVest, but is not wearing it at this time. He often refuses to wear the LifeVest. 2. History of PE + antiphospholipid antibody syndrome: INR is subtherapeutic. Continue Coumadin 5 mg + Lovenox overlap On telemetry- SR last 24 hours 3. Chest pain, atypical: Patient has significant cardiac history. troponins negative. Appreciate cardiology recommendations. Continue medical management. 4. Diabetes mellitus type 2: Monitor Accu-Cheks and cover with sliding scale insulin. Metformin 5. Anxiety: Continue clonazepam as needed. 6.. History of IV drug abuse: Patient counseled. No IV drug use in the last 7 months or so. 7. DVT prophylaxis: Coumadin, Lovenox. 8. Depression- psychiatry recommendations appreciated. - in better spirits- medical management- started on TRazodone 100 mg hs DC when INR therapeutic- OP ff up with PCP- Dr. Joseph Problem Qualifiers (1) Acute exacerbation of congestive heart failure: Qualified Code: I50.23 - Acute on chronic systolic congestive heart failure Sandra Grissom MD Jan 28, 2017 09:36
[2017-01-28 12:00] VITALS: BP 101/60; PULSE 84; RESP 18; TEMP 97.3; O2SAT 96
[2017-01-28] MEDS: ENOXAPARIN SODIUM 80 MG/0.8 ML SYRINGE SQ SCH ×2 (12:04→22:15)
[2017-01-28] MEDS: clonazePAM 1 MG TAB PO PRN (12:06)
[2017-01-28 16:00] VITALS: BP 110/58; PULSE 82; RESP 18; TEMP 97.9; O2SAT 97
[2017-01-28] MEDS ORDERED: WARFARIN SOD 5 MG TAB PO ONE (16:00)
[2017-01-28] MEDS: WARFARIN SOD 5 MG TAB PO SCH (17:25)
[2017-01-28 20:00] VITALS: BP 90/49; PULSE 77; PULSE 78; RESP 18; TEMP 98.2; O2SAT 98
[2017-01-28] MEDS: traZODone HCL 100 MG TAB PO SCH (22:12)
[2017-01-29] VITALS: BP 105/56; PULSE 78; RESP 18; TEMP 98; O2SAT 96
[2017-01-29 04:00] VITALS: BP_SYST 102; BP_SYST 115; BP_DIAS 60; BP_DIAS 83; PULSE 80; RESP 18; TEMP 97.8; O2SAT 86; O2SAT 96; O2SAT 99
[2017-01-29] MEDS: ACETAMINOPHEN/HYDROcodone 325 MG/7.5 MG TAB PO PRN ×2 (05:26→17:07)
[2017-01-29] MEDS: INSULIN ASPART SUPPLEMENTAL SCALE SQ SCH ×4 (05:28→21:38)
[2017-01-29 07:01] LABS: INTERNATIONAL NORMALIZED RATIO 1.5 RATIO; PROTHROMBIN TIME - PATIENT 16.7 SEC (9.8-11.6)
[2017-01-29 08:00] VITALS: BP 103/53; PULSE 78; PULSE 82; RESP 18; TEMP 98.4; O2SAT 96
[2017-01-29] MEDS: LISINOPRIL 5 MG TAB PO SCH (08:53)
[2017-01-29] MEDS: POTASSIUM CHLORIDE 20 MEQ CONTROLLED RELEASE TAB PO SCH ×2 (08:54→21:35)
[2017-01-29] MEDS: metFORMIN HCL 500 MG TAB PO SCH (08:54)
[2017-01-29] MEDS: FUROSEMIDE 40 MG TAB PO SCH ×2 (08:54→17:03)
[2017-01-29] MEDS: METOPROLOL SUCCINATE 25 MG EXTENDED RELEASE TAB PO SCH (08:54)
[2017-01-29] MEDS: ASPIRIN EC 81 MG TABEC PO SCH (08:54)
[2017-01-29] MEDS: clonazePAM 1 MG TAB PO PRN (09:00)
[2017-01-29] MEDS: SODIUM CHLORIDE 0.9% FLUSH 10 ML FLUSH IV FLUSH SCH ×2 (09:00→21:00)
[2017-01-29] MEDS: ENOXAPARIN SODIUM 80 MG/0.8 ML SYRINGE SQ SCH ×2 (11:26→21:35)
[2017-01-29 12:00] VITALS: BP 102/65; PULSE 80; RESP 20; TEMP 98.3; O2SAT 97
[2017-01-29] MEDS ORDERED: LOPERAMIDE HCL 2 MG CAP PO PRN (13:45)
[2017-01-29 16:00] VITALS: BP 115/61; PULSE 81; RESP 20; TEMP 98.2; O2SAT 96
[2017-01-29] MEDS ORDERED: WARFARIN SOD 5 MG TAB PO SCH (16:00)
[2017-01-29] MEDS: WARFARIN SOD 5 MG TAB PO SCH (17:03)
[2017-01-29] MEDS: POLYETHYLENE GLYCOL 17 GM PKG PO SCH (18:15)
[2017-01-29 20:00] VITALS: BP 121/75; PULSE 83; RESP 20; TEMP 97.9; O2SAT 97
[2017-01-29] MEDS: traZODone HCL 100 MG TAB PO SCH (21:35)
[2017-01-30] VITALS: BP 97/57; PULSE 73; RESP 20; TEMP 97.2; O2SAT 98
[2017-01-30 04:00] VITALS: BP 107/64; PULSE 83; RESP 16; TEMP 97.5; O2SAT 96
[2017-01-30] MEDS: INSULIN ASPART SUPPLEMENTAL SCALE SQ SCH ×4 (06:14→20:34)
[2017-01-30 07:04] LABS: INTERNATIONAL NORMALIZED RATIO 1.2 RATIO; PROTHROMBIN TIME - PATIENT 13.2 SEC (9.8-11.6)
[2017-01-30 08:00] VITALS: BP_SYST 101; BP_SYST 105; BP_SYST 119; BP_DIAS 55; BP_DIAS 81; BP_DIAS 84; PULSE 76; PULSE 83; PULSE 87; RESP 18; RESP 20; TEMP 97.4; TEMP 97.8; TEMP 98.5; O2SAT 100; O2SAT 96; O2SAT 97
[2017-01-30] MEDS: POTASSIUM CHLORIDE 20 MEQ CONTROLLED RELEASE TAB PO SCH ×2 (08:28→20:30)
[2017-01-30] MEDS: metFORMIN HCL 500 MG TAB PO SCH (08:28)
[2017-01-30] MEDS: ASPIRIN EC 81 MG TABEC PO SCH (08:28)
[2017-01-30] MEDS: FUROSEMIDE 40 MG TAB PO SCH ×2 (08:28→17:16)
[2017-01-30] MEDS: LISINOPRIL 5 MG TAB PO SCH (08:28)
[2017-01-30] MEDS: METOPROLOL SUCCINATE 25 MG EXTENDED RELEASE TAB PO SCH (08:28)
[2017-01-30] MEDS: POLYETHYLENE GLYCOL 17 GM PKG PO SCH (08:28)
[2017-01-30] MEDS: ACETAMINOPHEN/HYDROcodone 325 MG/7.5 MG TAB PO PRN ×2 (08:34→20:36)
--- NOTE | 2017-01-30 10:43 | HHI.PR ---
Subjective Remarks Pt was seen yesterday (01/29/17) around 11 am. Patient wanting to go home, says he had no worsening of his chronic chest pain, was complaining of some constipation and wanted some medicine for it. Says that he had recently become compliant with his Coumadin dosing just prior to this hospitalization was taking 4 mg every day. Objective Vital Signs Date Time Temp Pulse Resp B/P Pulse Ox O2 Delivery O2 Flow Rate FiO2 01/29/17 12:00 98.3 80 20 102/65 97 I/O 01/29/17 01/29/17 01/29/17 01/30/17 01/30/17 01/30/17 07:00 15:00 23:00 15:00 23:00 Intake Total 180 ml Balance 180 ml Intake Oral 180 ml IV Total # Voids 3 # Bowel Movements INR 1.5 on 01/29/17. Objective Remarks Vital signs: Reviewed, normotensive, stable, afebrile, normal pulse Gen.: No acute distress Respiratory: Clear to auscultation bilaterally, unlabored, no conversive dyspnea noted Cardiovascular: Regular rate and rhythm, no murmurs Abdomen: Soft, nondistended, mild diffuse tenderness to palpation in lower abdomen with no guarding Extremities: No edema clubbing nor any cyanosis A/P Problem List: (1) DM (diabetes mellitus) ICD Code: E11.9 (2) Chest pain ICD Code: R07.9 (3) Acute exacerbation of CHF (congestive heart failure) ICD Code: I50.9 Assessment and Plan 1. Acute exacerbation of chronic systolic congestive heart failure- IMproved. : . bid po Lasix Intermittent a fib- on BB. continue coumadin- INR subtherapeutic- on Lovenox + coumadin. Increase toprol to 37.5 mg daily Nonischemic cardiomyopathy: Appreciate cardiology recommendations. Patient has a LifeVest, but is not wearing it at this time. He often refuses to wear the LifeVest. 2. History of PE + antiphospholipid antibody syndrome: INR is subtherapeutic. Continue Coumadin 5 mg + Lovenox overlap On telemetry- SR last 24 hours 3. Chest pain, atypical: Patient has significant cardiac history. troponins negative. Appreciate cardiology recommendations. Continue medical management. 4. Diabetes mellitus type 2: Monitor Accu-Cheks and cover with sliding scale insulin. Metformin 5. Anxiety: Continue clonazepam as needed. 6.. History of IV drug abuse: Patient counseled. No IV drug use in the last 7 months or so. 7. DVT prophylaxis: Coumadin, Lovenox. 8. Depression- psychiatry recommendations appreciated. - in better spirits- medical management- started on TRazodone 100 mg hs Discharge Planning 1. Acute exacerbation of chronic systolic congestive heart failure-clinically reached at home baseline, able ambulate down the concepcion without much difficulty Intermittent a fib- on BB. Still subtherapeutic, will plan to increase Coumadin dosing Nonischemic cardiomyopathy: Appreciate cardiology recommendations. Patient has a LifeVest, but is not wearing it at this time. He often refuses to wear the LifeVest. 2. History of PE + antiphospholipid antibody syndrome: INR is subtherapeutic. Continue Coumadin 5 mg + Lovenox overlap On telemetry- SR last 24 hours 3. Chest pain, atypical: Patient has significant cardiac history. troponins negative. Appreciate cardiology recommendations, CT is negative for pulmonary embolism. Chest pain has resolved, continue med management 4. Diabetes mellitus type 2: Monitor Accu-Cheks and cover with sliding scale insulin. Metformin 5. Anxiety: Continue clonazepam as needed. 6.. History of IV drug abuse: Patient counseled. No IV drug use in the last 7 months or so. 7. DVT prophylaxis: Coumadin, Lovenox. 8. Depression- psychiatry recommendations appreciated. - in better spirits- medical management- TRazodone 100 mg hs Trey Spaulding MD Jan 30, 2017 10:43
--- NOTE | 2017-01-30 10:53 | HHI.PR ---
Subjective Remarks Discussed with nurse, no acute events reported overnight. Patient reports feeling well, is wanting to go home but is wanting most appropriate treatment. As been afebrile, tolerating by mouth intake well, Objective Vital Signs Date Time Temp Pulse Resp B/P Pulse Ox O2 Delivery O2 Flow Rate FiO2 01/30/17 08:00 97.8 87 20 101/84 97 01/30/17 04:00 97.5 83 16 107/64 96 01/30/17 00:00 97.2 73 20 97/57 98 01/30/17 00:00 Room Air 01/29/17 21:40 Room Air 01/29/17 20:00 97.9 83 20 121/75 97 01/29/17 20:00 83 01/29/17 16:00 98.2 81 20 115/61 96 01/29/17 12:00 98.3 80 20 102/65 97 I/O 01/29/17 01/29/17 01/29/17 01/30/17 01/30/17 01/30/17 07:00 15:00 23:00 07:00 15:00 23:00 Intake Total 180 ml 1680 ml 480 ml 456 ml Balance 180 ml 1680 ml 480 ml 456 ml Intake Oral 180 ml 1680 ml 480 ml 450 ml IV Total 6 ml # Voids 3 4 5 2 # Bowel Movements 1 0 0 Other Results Laboratory Tests Test 01/30/17 05:41 Prothrombin Time 13.2 SEC (9.8-11.6) Prothromb Time International 1.2 RATIO Ratio Objective Remarks Vital signs: Reviewed, normotensive, stable, afebrile, normal pulse Gen.: No acute distress Respiratory: Clear to auscultation bilaterally, unlabored, no conversive dyspnea noted Cardiovascular: Regular rate and rhythm, no murmurs Abdomen: Soft, nondistended, mild diffuse tenderness to palpation in lower abdomen with no guarding Extremities: No edema clubbing nor any cyanosis A/P Problem List: (1) DM (diabetes mellitus) ICD Code: E11.9 (2) Chest pain ICD Code: R07.9 (3) Acute exacerbation of CHF (congestive heart failure) ICD Code: I50.9 Assessment and Plan 1. Acute exacerbation of chronic systolic congestive heart failure- IMproved. : . bid po Lasix Intermittent a fib- on BB. continue coumadin- INR subtherapeutic- on Lovenox + coumadin. Increase toprol to 37.5 mg daily Nonischemic cardiomyopathy: Appreciate cardiology recommendations. Patient has a LifeVest, but is not wearing it at this time. He often refuses to wear the LifeVest. 2. History of PE + antiphospholipid antibody syndrome: INR is subtherapeutic. Continue Coumadin 5 mg + Lovenox overlap On telemetry- SR last 24 hours 3. Chest pain, atypical: Patient has significant cardiac history. troponins negative. Appreciate cardiology recommendations. Continue medical management. 4. Diabetes mellitus type 2: Monitor Accu-Cheks and cover with sliding scale insulin. Metformin 5. Anxiety: Continue clonazepam as needed. 6.. History of IV drug abuse: Patient counseled. No IV drug use in the last 7 months or so. 7. DVT prophylaxis: Coumadin, Lovenox. 8. Depression- psychiatry recommendations appreciated. - in better spirits- medical management- started on TRazodone 100 mg hs Discharge Planning 1. Acute exacerbation of chronic systolic congestive heart failure- EF 15% most recently noted in October 2016 . clinically reached at home baseline, able ambulate down the concepcion without much difficulty. Continue lisinopril, metoprolol , will add on spironolactone. Intermittent a fib- on BB. Still subtherapeutic, doubled Coumadin dose 10 mg daily, reconsulted pharmacy Nonischemic cardiomyopathy: Appreciate cardiology recommendations. Patient is looking forward to getting possible ICD placed as outpatient with cardiology. 2. History of PE + antiphospholipid antibody syndrome: INR is subtherapeutic. Still bridging with Lovenox, Coumadin dose has been doubled, see above. On telemetry- SR last 24 hours 3. Diabetes mellitus type 2: Monitor Accu-Cheks and cover with sliding scale insulin. Metformin 4. Anxiety: Continue clonazepam as needed. 5.. History of IV drug abuse: Patient counseled. No IV drug use in the last 7 months or so. 6. DVT prophylaxis: Coumadin, Lovenox. 7. Depression- psychiatry recommendations appreciated. - in better spirits- medical management- TRazodone 100 mg hs Trey Spaulding MD Jan 30, 2017 10:52
[2017-01-30 12:00] VITALS: BP 107/56; PULSE 77; RESP 20; TEMP 97.4; O2SAT 97
[2017-01-30] MEDS: ENOXAPARIN SODIUM 80 MG/0.8 ML SYRINGE SQ SCH ×2 (12:19→22:11)
[2017-01-30] MEDS ORDERED: WARFARIN SOD 10 MG TAB PO SCH (16:00)
[2017-01-30] MEDS ORDERED: WARFARIN SOD 7.5 MG TAB PO SCH (16:00)
[2017-01-30] MEDS ORDERED: WARFARIN SOD 2.5 MG TAB PO SCH (16:00)
[2017-01-30] MEDS: SPIRONOLACTONE 25 MG TAB PO SCH (16:19)
[2017-01-30] MEDS: SODIUM CHLORIDE 0.9% FLUSH 10 ML FLUSH IV FLUSH SCH ×2 (17:18→20:39)
[2017-01-30 20:00] VITALS: BP 114/67; PULSE 76; PULSE 78; RESP 18; TEMP 98; O2SAT 97
[2017-01-30] MEDS: traZODone HCL 100 MG TAB PO SCH (20:30)
[2017-01-30] MEDS: clonazePAM 1 MG TAB PO PRN (22:12)
[2017-01-31] VITALS: BP 95/54; PULSE 68; RESP 17; TEMP 97.5; O2SAT 99
[2017-01-31 04:00] VITALS: BP 101/55; PULSE 67; RESP 16; TEMP 97.5; O2SAT 99
[2017-01-31] MEDS: INSULIN ASPART SUPPLEMENTAL SCALE SQ SCH ×4 (06:04→21:24)
[2017-01-31 08:00] VITALS: BP 111/59; PULSE 79; PULSE 82; RESP 16; TEMP 98.2; O2SAT 99
[2017-01-31] MEDS: SODIUM CHLORIDE 0.9% FLUSH 10 ML FLUSH IV FLUSH SCH ×2 (09:12→21:22)
[2017-01-31] MEDS: ASPIRIN EC 81 MG TABEC PO SCH (09:12)
[2017-01-31] MEDS: POTASSIUM CHLORIDE 20 MEQ CONTROLLED RELEASE TAB PO SCH ×2 (09:13→21:22)
[2017-01-31] MEDS: metFORMIN HCL 500 MG TAB PO SCH (09:13)
[2017-01-31] MEDS: POLYETHYLENE GLYCOL 17 GM PKG PO SCH (09:13)
[2017-01-31] MEDS: LISINOPRIL 5 MG TAB PO SCH (09:13)
[2017-01-31] MEDS: METOPROLOL SUCCINATE 25 MG EXTENDED RELEASE TAB PO SCH (09:13)
[2017-01-31] MEDS: FUROSEMIDE 40 MG TAB PO SCH ×2 (09:13→17:40)
[2017-01-31] MEDS: SPIRONOLACTONE 25 MG TAB PO SCH (09:13)
[2017-01-31] MEDS: ACETAMINOPHEN/HYDROcodone 325 MG/7.5 MG TAB PO PRN ×2 (09:38→22:15)
[2017-01-31 10:00] LABS: INTERNATIONAL NORMALIZED RATIO 1.1 RATIO; PROTHROMBIN TIME - PATIENT 12.1 SEC (9.8-11.6)
[2017-01-31 10:16] LABS: POTASSIUM 4.7 MEQ/L (3.5-5.1)
[2017-01-31] MEDS: ENOXAPARIN SODIUM 80 MG/0.8 ML SYRINGE SQ SCH ×2 (11:51→22:13)
--- NOTE | 2017-01-31 11:52 | HHI.PR ---
Subjective Remarks Discussed with nurse, no acute events reported overnight. Patient reports feeling well, is wanting to go home . Objective Vital Signs Date Time Temp Pulse Resp B/P Pulse Ox O2 Delivery O2 Flow Rate FiO2 01/31/17 08:30 Room Air 01/31/17 08:00 98.2 79 16 111/59 99 01/31/17 04:00 97.5 67 16 101/55 99 01/31/17 04:00 Room Air 01/31/17 00:00 Room Air 01/31/17 00:00 97.5 68 17 95/54 99 01/30/17 20:35 Room Air 01/30/17 20:00 76 01/30/17 20:00 98.0 78 18 114/67 97 01/30/17 12:00 97.4 77 20 107/56 97 I/O 01/30/17 01/30/17 01/30/17 01/31/17 01/31/17 01/31/17 07:00 15:00 23:00 07:00 15:00 23:00 Intake Total 456 ml 1560 ml 360 ml 140 ml Output Total 180 ml 350 ml Balance 456 ml 1560 ml 180 ml -210 ml Intake Oral 450 ml 1560 ml 360 ml 140 ml IV Total 6 ml Output Urine Total 180 ml 350 ml # Voids 2 8 # Bowel Movements 0 1 0 0 Result Diagram: 01/31/17 0830 Other Results Laboratory Tests Test 01/31/17 08:30 Prothrombin Time 12.1 SEC (9.8-11.6) Prothromb Time International 1.1 RATIO Ratio Sodium Level 132 MEQ/L (136-145) Potassium Level 4.7 MEQ/L (3.5-5.1) Chloride Level 101 MEQ/L (98-107) Carbon Dioxide Level 23.0 MEQ/L (21.0-32.0) Anion Gap 8 MEQ/L (5-15) Blood Urea Nitrogen 21 MG/DL (7-18) Creatinine 0.87 MG/DL (0.60-1.30) Estimat Glomerular Filtration 87 ML/MIN (>89) Rate Random Glucose 121 MG/DL (74-106) Calcium Level 9.4 MG/DL (8.5-10.1) Objective Remarks Vital signs: Reviewed, normotensive, stable, afebrile, normal pulse Gen.: No acute distress Cardiovascular: Normal regular rhythm, no murmurs, no lower extremity edema, clubbing or cyanosis Respiratory: Normal unlabored breathing Medications and IVs Inpatient Medications Acetaminophen/ Hydrocodone Bitart ([place] 5-325 Mg) 1 tab Q6H PRN PO PAIN SCALE 1 TO 6; Start 01/26/17 at 12:00 Acetaminophen/ Hydrocodone Bitart ([place] 7.5-325 Mg) 1 tab Q6H PRN PO PAIN SCALE 7 TO 10 Last administered on 01/31/17 09:38; Start 01/26/17 at 12:00 Aspirin (Aspirin Chew) 81 mg ONCE ONCE CHEW Last administered on 01/19/17 22: 31; Start 01/19/17 at 22:00; Stop 01/19/17 at 22:02; Status DC Aspirin (Ecotrin Ec) 81 mg DAILY PO Last administered on 01/31/17 09:12; Start 01/20/17 at 10:00 Clonazepam (KlonoPIN) 1 mg Q8HR PRN PO MODERATE TO SEVERE ANXIETY Last administered on 01/30/17 22:12; Start 01/20/17 at 10:00 Dextrose (D50w (Vial) Inj) 50 ml UNSCH PRN IV HYPOGLYCEMIA-SEE COMMENTS; Start 01/23/17 at 15:15 Enoxaparin Sodium (Lovenox Inj) 70 mg Q12H SQ Last administered on 01/30/17 22 :11; Start 01/20/17 at 11:00 Furosemide (Lasix Inj) 40 mg BID@09,18 IV PUSH Last administered on 01/24/17 08:50; Start 01/20/17 at 09:00; Stop 01/24/17 at 12:09; Status DC Furosemide (Lasix) 40 mg BID@09,18 PO Last administered on 01/31/17 09:13; Start 01/24/17 at 18:00 Glucagon (Glucagon Inj) 1 mg UNSCH PRN OTHER HYPOGLYCEMIA-SEE COMMENTS; Start 01/23/17 at 15:15 Insulin Aspart (NovoLOG SUPPLEMENTAL SCALE) 1 ACHS SLIDING SCALE SQ Last administered on 01/30/17 20:34; Start 01/23/17 at 16:00 Lisinopril (Prinivil) 5 mg DAILY PO Last administered on 01/31/17 09:13; Start 01/21/17 at 09:00 Loperamide HCl (Imodium) 2 mg Q6H PRN PO loose stool; Start 01/29/17 at 13:45 Metformin HCl (Glucophage) 500 mg DAILY PO Last administered on 01/31/17 09:13 ; Start 01/25/17 at 14:45 Metoprolol Succinate (Toprol Xl) 12.5 mg ONCE ONCE PO Last administered on 12:38; Start 01/26/17 at 09:45; Stop 01/26/17 at 09:46; Status DC Miscellaneous (Pill Splitter) 1 ea UNSCH PRN OTHER SEE LABEL COMMENTS; Start at 09:45 Naloxone HCl (Narcan Inj) 0.4 mg UNSCH PRN IV SEE LABEL COMMENTS; Start at 00:00 Nitroglycerin (Nitroglycerin 2% Oint) 1 inch ONCE ONCE TOPICAL Last administered on 01/19/17 22:31; Start 01/19/17 at 22:00; Stop 01/19/17 at 22:01 ; Status DC Nitroglycerin (Nitrostat Sl) 0.4 mg ONCE ONCE SL Last administered on 22:31; Start 01/19/17 at 22:00; Stop 01/19/17 at 22:02; Status DC Patient Medication Teaching (Coumadin Booklet) 1 ONCE ONCE OTHER Last administered on 01/24/17 12:52; Start 01/23/17 at 17:15; Stop 01/23/17 at 17:16 ; Status DC Pharmacy Profile Note (Coumadin Consult Pharmacy) 0 ml @ 0 mls/hr UNSCH OTHER ; Start 01/30/17 at 09:30 Polyethylene Glycol (Miralax) 17 gm DAILY PO Last administered on 01/31/17 09: 13; Start 01/29/17 at 18:15 Potassium Chloride (KCl) 20 meq Q12HR PO Last administered on 01/31/17 09:13; Start 01/20/17 at 09:00 Sodium Chloride (NS Flush) 2 ml BID IV FLUSH Last administered on 01/31/17 09: 12; Start 01/20/17 at 09:00 Spironolactone (Aldactone) 25 mg DAILY PO Last administered on 01/31/17 09:13 ; Start 01/30/17 at 11:00 Trazodone HCl (Desyrel) 100 mg HS PO ; Start 01/27/17 at 21:00; Stop 01/27/17 at 21:00; Status DC Warfarin Sodium (Coumadin) 15 mg DAILY@1600 PO ; Start 01/31/17 at 16:00 Warfarin Sodium 10 mg 10 mg DAILY@16 PO Last administered on 01/30/17t 16:18; Start 01/30/17 at 16:00; Stop 01/31/17 at 10:50; Status DC A/P Problem List: (1) DM (diabetes mellitus) ICD Code: E11.9 (2) Acute exacerbation of CHF (congestive heart failure) ICD Code: I50.9 (3) Anti-phospholipid antibody syndrome ICD Code: D68.61 (4) Chronic pain ICD Code: G89.29 (5) CHF (congestive heart failure) ICD Code: I50.9 Assessment and Plan Pt initially admitted w/ CP and SOB - resolved. CT neg for PE. Staying inpt for bridging of anticoagulants given subtherapeutic INR wall the patient has a history of antiphospholipid syndrome with a past history of pulmonary embolism. 1. Acute exacerbation of chronic systolic congestive heart failure- acute component resolved. Will d/c telemetry as pt has been asymptomatic for > last 48 hours. 2. chronic CHF - EF 15% few months ago. continue Toprol, lisinopril, just added spironolactone. 3. Intermittent a fib - on BB. continue Coumadin-rate control and anticoagulation 4. antiphospholipid antibody syndrome w/ hx of PE: INR is subtherapeutic. Coumadin has been increased to 50 mg daily with Lovenox bridging, pharmacy managing. 5. Diabetes mellitus type 2: Monitor Accu-Cheks and cover with sliding scale insulin. Metformin 6. constipation - likely worsened w/ chronic [place] (presumably for chronic pain ) - miralax 7. Anxiety: Continue clonazepam as needed. 8. History of IV drug abuse: Patient had been recently counseled. No IV drug use in the last 7 months or so. 9. DVT prophylaxis: Coumadin, Lovenox. 8. Depression- psychiatry recommendations appreciated. - in better spirits- medical management- continue TRazodone 100 mg hs Problem Qualifiers (1) Acute exacerbation of CHF (congestive heart failure): Qualified Code: I50.23 - Acute on chronic systolic congestive heart failure Trey Spaulding MD Jan 31, 2017 11:52 Trey Spaulding MD Jan 31, 2017 11:52 months or so. 6. DVT prophylaxis: Coumadin, Lovenox. 7. Depression- psychiatry recommendations appreciated. - in better spirits- medical management- TRazodone 100 mg hs Trey Spaulding MD Jan 31, 2017 11:52
[2017-01-31 12:00] VITALS: BP 103/53; PULSE 78; RESP 16; TEMP 97.4; O2SAT 96
[2017-01-31 16:00] VITALS: BP 102/56; PULSE 76; RESP 16; TEMP 98.2; O2SAT 98
[2017-01-31] MEDS: WARFARIN SOD 7.5 MG TAB PO SCH (17:40)
[2017-01-31 20:00] VITALS: BP 108/57; PULSE 87; RESP 20; TEMP 97.7; O2SAT 99
[2017-01-31] MEDS: traZODone HCL 100 MG TAB PO SCH (21:22)
[2017-01-31] MEDS: clonazePAM 1 MG TAB PO PRN (22:14)
[2017-02-01] VITALS: BP 101/57; PULSE 84; RESP 20; TEMP 98.2; O2SAT 98
[2017-02-01 04:00] VITALS: BP 96/62; PULSE 79; RESP 20; TEMP 98; O2SAT 96
[2017-02-01] MEDS: ACETAMINOPHEN/HYDROcodone 325 MG/7.5 MG TAB PO PRN ×2 (05:57→15:57)
[2017-02-01] MEDS: INSULIN ASPART SUPPLEMENTAL SCALE SQ SCH ×3 (06:02→16:00)
[2017-02-01 08:00] VITALS: BP 142/63; PULSE 77; RESP 18; TEMP 98.1; O2SAT 100
[2017-02-01 08:11] LABS: BICARBONATE 27.4 MEQ/L (21.0-32.0); POTASSIUM 4.5 MEQ/L (3.5-5.1)
[2017-02-01] MEDS: POLYETHYLENE GLYCOL 17 GM PKG PO SCH (09:00)
[2017-02-01] MEDS: SODIUM CHLORIDE 0.9% FLUSH 10 ML FLUSH IV FLUSH SCH (09:27)
[2017-02-01] MEDS: clonazePAM 1 MG TAB PO PRN (09:27)
[2017-02-01] MEDS: FUROSEMIDE 40 MG TAB PO SCH (09:28)
[2017-02-01] MEDS: METOPROLOL SUCCINATE 25 MG EXTENDED RELEASE TAB PO SCH (09:28)
[2017-02-01] MEDS: SPIRONOLACTONE 25 MG TAB PO SCH (09:29)
[2017-02-01] MEDS: metFORMIN HCL 500 MG TAB PO SCH (09:29)
[2017-02-01] MEDS: LISINOPRIL 5 MG TAB PO SCH (09:29)
[2017-02-01] MEDS: POTASSIUM CHLORIDE 20 MEQ CONTROLLED RELEASE TAB PO SCH (09:29)
[2017-02-01] MEDS: ASPIRIN EC 81 MG TABEC PO SCH (09:38)
[2017-02-01] MEDS ORDERED: METF500 PO (10:44)
[2017-02-01] MEDS ORDERED: SPIR25 PO (10:44)
[2017-02-01] MEDS ORDERED: METO25TA6 PO (10:44)
[2017-02-01] MEDS ORDERED: ASPI-99 PO (10:44)
[2017-02-01] MEDS ORDERED: ENOX80P SQ (10:44)
[2017-02-01] MEDS ORDERED: WARF-20 PO (10:44)
[2017-02-01] MEDS ORDERED: POTA20TA5 PO (10:44)
[2017-02-01] MEDS ORDERED: TORS20TA PO (10:44)
[2017-02-01] MEDS ORDERED: LISI-519 PO (10:44)
--- NOTE | 2017-02-01 10:53 | HHI.DCPOC ---
Discharge Care Plan Diagnosis: (1) Subtherapeutic anticoagulation (2) Acute exacerbation of congestive heart failure (3) Non-ischemic cardiomyopathy (4) CHF (congestive heart failure) (5) Acute exacerbation of CHF (congestive heart failure) (6) Chronic pain (7) Anti-phospholipid antibody syndrome (8) Atypical chest pain (9) HTN (hypertension) (10) DM2 (diabetes mellitus, type 2) Goals to Promote Your Health * To prevent worsening of your condition and complications * To maintain your health at the optimal level Directions to Meet Your Goals Take your medications as prescribed Follow your dietary instruction Follow activity as directed Keep your appointments as scheduled Take your immunizations and boosters as scheduled If your symptoms worsen call your PCP, if no PCP go to Urgent Care Center or Emergency Room Smoking is Dangerous to Your Health. Avoid second hand smoke Call the 24-hour hour crisis hotline for domestic abuse at [place] Feb 01, 2017 10:52
[2017-02-01] MEDS: ENOXAPARIN SODIUM 80 MG/0.8 ML SYRINGE SQ SCH (10:56)
--- NOTE | 2017-02-01 11:08 | HHI.DS ---
Discharge Summary Admission Date Jan 19, 2017 at 23:53 Discharge Date: Feb 01, 2017 Admitting Diagnosis CP R/O AR, CHF exacerbation (1) Subtherapeutic anticoagulation ICD Code: Z51.81 (2) Acute exacerbation of congestive heart failure ICD Code: I50.9 Diagnosis: Principal (3) Chest pain ICD Code: R07.9 (4) Noncompliance with medication regimen ICD Code: Z91.14 (5) DM (diabetes mellitus) ICD Code: E11.9 (6) Non-ischemic cardiomyopathy ICD Code: I42.8 (7) Anti-phospholipid antibody syndrome ICD Code: D68.61 (8) Hyperlipidemia ICD Code: E78.5 (9) HTN (hypertension) ICD Code: I10 (10) Atypical chest pain ICD Code: R07.89 Procedures None Brief History - From Admission The patient is a 71-year-old male with history of congestive heart failure who presented to the emergency department with complaint of chest pain and dyspnea over the past 2-3 days. He scratched the chest pain has a dull ache in the center of his chest. It radiates somewhat to the right shoulder. Currently 7/ 10. At its worst, the pain was 9/10. He reports associated dyspnea, but no diaphoresis. Denies lower extremity edema. CBC/BMP: 02/01/17 0700 Significant Findings Laboratory Tests Test 01/30/17 01/31/17 02/01/17 05:41 08:30 07:00 Prothrombin Time 13.2 SEC 12.1 SEC (9.8-11.6) (9.8-11.6) Sodium Level 132 MEQ/L 135 MEQ/L (136-145) (136-145) Blood Urea Nitrogen 21 MG/DL (7-18) 26 MG/DL (7-18) Estimat Glomerular Filtration 87 ML/MIN (>89) 87 ML/MIN (>89) Rate Random Glucose 121 MG/DL 130 MG/DL (74-106) (74-106) PE at Discharge GENERAL: Well-nourished, well-developed patient in NAD. Awake and alert. SKIN: Warm and dry. No rash. HEENT: Normocephalic. Atraumatic. EOMI. MMM. NECK: Supple. Trachea midline. CARDIOVASCULAR: Regular rate and rhythm. S1, S2 noted. No murmur appreciated. RESPIRATORY: No accessory muscle use. Clear to auscultation. Breath sounds equal bilaterally. GASTROINTESTINAL: Abdomen soft, non-tender, nondistended. Normoactive bowel sounds x4. MUSCULOSKELETAL: No obvious deformities. Extremities without clubbing, cyanosis , or edema. NEUROLOGICAL: Awake and alert. No obvious cranial nerve deficits. Motor grossly within normal limits. 5/5 muscle strength in bilateral upper and lower extremities. Normal speech. PSYCHIATRIC: Appropriate mood and affect; insight and judgment normal.not in distress Pt update on day of discharge Patient seen and examined today. Patient denies any acute medical complaints. He is very upset that he is on a fluid restricted diet and that he was unable to order lasagna last night for dinner. Patient also states to me that his 8 ounces of milk was not enough to wet his cereal. Patient also complaining that his girlfriend who does not have an ID was unable to visit him during this hospitalization. Patient states to me this is a stupid rule and that if he wanted to he could have a gun in the hospital within the next hour. He informs me that he is already written a letter to Mr. Parks regarding these complaints. Hospital Course Patient's 71-year-old male with a history of congestive heart failure who presents to the ED with complaints of chest pain shortness of breath over the past several days. He also complained of a dull ache in the center of his chest radiating somewhat his right shoulder. Patient's troponins were flat 3. He was started on IV diuresis and monitored on telemetry. Patient's telegraph operator Dr. Henry was consulted who was very familiar with the patient. Per his note, patient with nonischemic cardiomyopathy with EF 20% not wearing his LifeVest, noncompliant patient with Coumadin with a history of pulmonary embolus - his chest pain is most likely associated with acute on chronic systolic heart failure for which he recommended restarting aggressive medical management as well as strict in and outputs, low-salt diet and daily weights. His BNP was 4458. Patient's INR was noted to be subtherapeutic at 1.2 and he was started on Lovenox bridging. CT of the chest was obtained and was unremarkable. Patient also with a history of IV drug use last used 7 months ago patient was counseled regarding continued cessation. Aldactone was added to his medication regimen. Patient responded extremely well to the above therapies. Telemetry was discontinued and he was changed to oral diuresis. Patient has plans with cardiology to discuss ICD placement during outpatient visit following discharge. Patient was discharged to home in satisfactory condition. He was instructed to continue his Lovenox injections and was given prior to discharge. She did follow up with his primary care physician in next 2 -3 days to have his INR rechecked and adjustment of Coumadin dose as needed. Patient also instructed to follow up with his telegraph operator as an outpatient. Pt Condition on Discharge: Stable Discharge Disposition: Discharge Home Discharge Time: > 30 minutes Discharge Instructions DIET: Follow Instructions for: Heart Healthy Diet, Coumadin (Warfarin) Diet Additional Diet Instructions: Please limit yourself to 2gm sodium daily Fluid Restrictions: 2L Activities you can perform: Regular-No Restrictions Follow up Referrals: Cardiology - 1 Week PCP Follow-up - 2-3 Days New Medications: Potassium Chloride Microencaps (Potassium Chloride Microencaps) 20 Meq Tab 20 MEQ PO DAILY Electrolyte Replacement #[address] (Adult Aspirin EC Low Strength) 81 Mg Tabec 81 MG PO DAILY CAD #7 TAB Enoxaparin Inj (Lovenox Inj) 80 mg/0.8 ML Syr 70 MG SQ Q12H SUBTHERAPEUTIC INR #10 INJECTION Lisinopril (Lisinopril) 5 Mg Tab 5 MG PO DAILY HYPERTENSION #7 TAB Metformin (Glucophage) 500 Mg Tab 500 MG PO DAILY DIABETIC #7 TAB Metoprolol Succinate ER 24 HR (Metoprolol Succinate ER 24 HR) 25 Mg Tab 37.5 MG PO DAILY CHF #7 TAB Spironolactone (Aldactone) 25 Mg Tab 25 MG PO DAILY CHF #7 TAB Continued Medications: Clonazepam (Klonopin) 1 Mg Tab 1 MG PO Q8HR PRN MODERATE TO SEVERE ANXIETY #30 TAB Metformin (Metformin) 500 Mg Tab 500 MG PO DAILY With a meal Blood Sugar Management #30 Ref 0 TAB Torsemide (Torsemide) 20 Mg Tab 20 MG PO DAILY Heart failure #7 Ref 0 TAB (This prescription has been renewed) Warfarin (Warfarin) 4 Mg Tab 4 MG PO DAILY Blood Clot Prevention #7 Ref 0 TAB (This prescription has been renewed) Discontinued Medications: Aspirin DR (Aspirin 81) 81 Mg Tabdr 81 MG PO DAILY Ref 0 TAB Metoprolol Succinate ER 24 HR (Metoprolol Succinate ER 24 HR) 25 Mg Tab 25 MG PO DAILY Heart #30 TAB [place] Feb 01, 2017 11:08
[2017-02-01 12:00] VITALS: BP 106/55; PULSE 84; RESP 18; TEMP 97.9; O2SAT 96
[2017-02-01] MEDS: WARFARIN SOD 7.5 MG TAB PO SCH (16:10)
== END 2017-02-01 17:11 | disposition home or self-care (01) | DRG 291 ==
LOC: NEPC 21:32 → NEDA 23:53 → OBSVTOIN 23:53 → NEPHCDU 01-20 01:06 → N04A 01-22 19:20
PROVIDERS: ADMIT Family Medicine; ATTEND Family Medicine
DX: I11.0 Hypertensive heart disease with heart failure (principal); I26.99 Other pulmonary embolism without acute cor pulmonale; D68.61 Antiphospholipid syndrome; I50.23 Acute on chronic systolic (congestive) heart failure; I42.9 Cardiomyopathy, unspecified; E78.5 Hyperlipidemia, unspecified; Z86.73 Personal history of transient ischemic attack (TIA), and cerebral infarction without residual deficits; F41.8 Other specified anxiety disorders; R56.9 Unspecified convulsions; E11.9 Type 2 diabetes mellitus without complications; I25.10 Atherosclerotic heart disease of native coronary artery without angina pectoris; Z79.01 Long term (current) use of anticoagulants; Z86.711 Personal history of pulmonary embolism; G89.29 Other chronic pain; M79.604 Pain in right leg; I48.91 Unspecified atrial fibrillation; K59.00 Constipation, unspecified; F12.90 Cannabis use, unspecified, uncomplicated; Z79.82 Long term (current) use of aspirin; Z87.891 Personal history of nicotine dependence; Z91.14 Patient's other noncompliance with medication regimen; R07.9 Chest pain, unspecified
CPT/HCPCS: 71010; 71275; 76937; 80048; 80053; 82550; 82948; 83690; 83735; 83880; 84484; 85025; 85610; 85730; 93005; 96374; J1650; J1815; J1940; Q9967

== ENCOUNTER 2017-02-11 07:58 | Inpatient (IN) | payer MEDICARE ==
[~2017-02-11] VITALS: Ht 182.9 cm; Wt 69.6 kg
[2017-02-11] VITALS (7 sets, daily range): BP systolic 98–121; BP diastolic 52–74; PULSE 66–92; RESP 16–29; TEMP 97.8–98.6; O2SAT 94–100
[~2017-02-11 07:58] MED LIST changes: +ASPI-110 PO; +ASPI-99 PO; +ENOX80P SQ; -FAMO20TA2 PO; +HYDR-3366 PO; -HYDR-3516 PO; +METF500 PO; +POTA20TA5 PO
[2017-02-11] MEDS ORDERED: SODIUM CHLORIDE 0.9% FLUSH 10 ML FLUSH IVF PRN (08:30)
[2017-02-11] MEDS ORDERED: ASPIRIN 81 MG CHEW TAB PO ONE (08:30)
[2017-02-11 08:46] LABS: AUTOMATED NEUTROPHIL # 6.8 TH/MM3 (1.8-7.7); BASOPHIL % 0.5 % (0.0-2.0); EOSINOPHIL % 0.5 % (0.0-4.0); HEMATOCRIT 34.8 % (39.0-51.0); HEMO FLAGS DIFF FINAL; LYMPH % 6.9 % (9.0-44.0); LYMPHOCYTE # 0.6 TH/MM3 (1.0-4.8); MEAN CELL VOLUME 87.6 FL (80.0-100.0); MEAN CORPUSCULAR HEMOGLOBIN 28.9 PG (27.0-34.0); NEUT % 82.1 % (16.0-70.0); PLATELET COUNT 223 TH/MM3 (150-450); RED BLOOD COUNT 3.98 MIL/MM3 (4.50-5.90); WHITE BLOOD COUNT 8.2 TH/MM3 (4.0-11.0)
[2017-02-11 08:56] LABS: APTT (PATIENT) 36.1 SEC (24.3-30.1); PROTHROMBIN TIME - PATIENT 22.4 SEC (9.8-11.6)
[2017-02-11 09:16] LABS: ANION GAP 8 MEQ/L (5-15); BICARBONATE 26.7 MEQ/L (21.0-32.0); BLOOD UREA NITROGEN 13 MG/DL (7-18); CHLORIDE 99 MEQ/L (98-107); GLOMERULAR FILTRATION RATE 87 ML/MIN (>89); MAGNESIUM 1.5 MG/DL (1.5-2.5); POTASSIUM 3.5 MEQ/L (3.5-5.1); SODIUM (NA) 134 MEQ/L (136-145)
[2017-02-11 09:22] LABS: CREATINE KINASE 49 U/L (39-308)
--- NOTE | 2017-02-11 09:47 | RADRPT ---
EXAM DATE/TIME: 02/11/2017 09:04 [facility] COMPARISON: CHEST SINGLE AP, January 19, 2017, 21:44. INDICATIONS : Mid chest pain for several days and increasingly worse. MEDICAL HISTORY : Cardiovascular disease. Cerebrovascular disease. Endocarditis SURGICAL HISTORY : Cholecystectomy. Appendectomy. ENCOUNTER: Initial ACUITY: 1 week PAIN SCORE: 9/10 LOCATION: Bilateral mid chest FINDINGS: There is cardiomegaly mild interstitial edema improved from 01/19/17 minimal chronic blunting of the r ight calcific sulcus is noted. There is no pneumothorax or other consolidation. CONCLUSION: Congestive failure, improved from comparison. Larry Sharma MD FACR on February 11, 2017 at 9:44 Board Certified Radiologist. This report was verified electronically.
[2017-02-11] MEDS ORDERED: FUROSEMIDE 40 MG/4 ML VIAL IV PUSH ONE (10:00)
--- NOTE | 2017-02-11 10:16 | PD ---
HPI Chief Complaint: Chest Pain Time Seen by Provider: 08:15 Travel History International Travel<30 days: No Contact w/Intl Traveler<30days: No Traveled to known affect area: No History of Present Illness HPI The patient 71 years old and has COPD and CHF. At times he uses oxygen. Currently he is undomiciled. He called EMS today due to shortness of breath. On scene they report tachypnea with a rate of 25-30 breaths per minute. His obstruction tag was negative. In the ER he complains of shortness of breath and chest pain. He states he has yet to take his morning medications including Lasix and Coumadin. He denies fever. PFSH Past Medical History Hx Anticoagulant Therapy: Yes (WARFARIN) Arthritis: No Asthma: No Blood Disorders: No Anxiety: Yes Depression: Yes Heart Rhythm Problems: No Cancer: No Cardiac Catheterization: No Cardiovascular Problems: Yes (NON ISCHEMIC CARDIOMYOPATHY EF 20% ) High Cholesterol: Yes Chemotherapy: No Chest Pain: Yes (ENDOCARDITITS) Congestive Heart Failure: Yes COPD: No Cerebrovascular Accident: Yes (mini strokes) Coronary Artery Disease: Yes Diabetes: Yes Patient Takes Glucophage: Yes Diminished Hearing: No Endocrine: Yes Gastrointestinal Disorders: Yes (thinks he has gallstones) GERD: No Glaucoma: No Genitourinary: No Headaches: No Hepatitis: No Hiatal Hernia: No Heparin Induced Thrombocytopen: No Hypertension: Yes Immune Disorder: No Implanted Vascular Access Dvce: No Kidney Stones: No Medical other: Yes (HX: IV DRUG USE) Musculoskeletal: Yes Neurologic: Yes Psychiatric: No Reproductive: No Respiratory: Yes (PULMONARY EMBOLISM ) Migraines: No Myocardial Infarction: Yes (mother) Radiation Therapy: No Renal Failure: No Seizures: Yes (20 YEARS AGO W/ TIAS) Sickle Cell Disease: No Sleep Apnea: No Thyroid Disease: No Ulcer: No Influenza Vaccination: Yes PNEUMOCCOCAL Vaccine (Year): 2007 Past Surgical History AICD: No Appendectomy: Yes Arteriovenous Shunt: No Body Medical Devices: TIERRA IN NECK Cardiac Surgery: No Cholecystectomy: Yes (pt is unsure) Coronary Artery Bypass Graft: No Ear Surgery: No Endocrine Surgery: No Eye Surgery: No Genitourinary Surgery: No Gynecologic Surgery: No Insulin Pump: No Joint Replacement: No Neurologic Surgery: No Oral Surgery: No Pacemaker: No Thoracic Surgery: Yes (COLLAPSED LUNG) Other Surgery: Yes Family History Family Myocardial Infarction: No Social History Alcohol Use: No Tobacco Use: No Substance Use: Yes Allergies-Medications (Allergen,Severity, Reaction): Coded Allergies: Morphine (Verified Allergy, Severe, Itching, 02/11/17) *MDRO Multi-Drug Resistant Organism (Verified Adverse Reaction, Unknown, ) 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/16 Reported Meds & Prescriptions Reported Meds & Active Scripts Active Aldactone (Spironolactone) 25 Mg Tab 25 Mg PO DAILY Metoprolol Succinate ER 24 HR (Metoprolol Succinate) 25 Mg Tab 37.5 Mg PO DAILY Warfarin 4 Mg Tab 4 Mg PO DAILY Torsemide 20 Mg Tab 20 Mg PO DAILY Klonopin (Clonazepam) 1 Mg Tab 1 Mg PO Q8HR PRN Lisinopril 5 Mg Tab 5 Mg PO DAILY Reported Aspirin 81 (Aspirin) 81 Mg Tabdr 81 Mg PO DAILY [place] (Hydrocodone-Acetaminophen) 10-325 Mg Tab 1 Tab PO Q8HR PRN Metformin (Metformin HCl) 500 Mg Tab 500 Mg PO DAILY With a meal Review of Systems Except as stated in HPI: all other systems reviewed are Neg General / Constitutional: No: Fever Physical Exam Narrative GENERAL: 71-year-old male no acute distress speaking in sentences SKIN: Warm and dry. HEAD: Atraumatic. Normocephalic. EYES: Pupils equal and round. No scleral icterus. No injection or drainage. ENT: No nasal bleeding or discharge. Mucous membranes pink and moist. NECK: Trachea midline. No JVD. CARDIOVASCULAR: Regular rate and rhythm. RESPIRATORY: Respiratory rate about 16. Lungs clear bilaterally. GASTROINTESTINAL: Abdomen soft, non-tender, nondistended. Hepatic and splenic margins not palpable. MUSCULOSKELETAL: Extremities without clubbing, cyanosis, or edema. No obvious deformities. NEUROLOGICAL: Awake and alert. No obvious cranial nerve deficits. Motor grossly within normal limits. Five out of 5 muscle strength in the arms and legs. Normal speech. PSYCHIATRIC: Appropriate mood and affect; insight and judgment normal. Data Data Last Documented VS Vital Signs Date Time Temp Pulse Resp B/P Pulse Ox O2 Delivery O2 Flow Rate FiO2 02/11/17 10:00 69 16 103/59 96 Room Air 2 02/11/17 08:10 98.1 Vital signs reviewed Orders Electrocardiogram (02/11/17 08:17) Basic Metabolic Panel (Bmp) (02/11/17 08:17) B-Type Natriuretic Peptide (02/11/17 08:17) Ckmb (Isoenzyme) Profile (02/11/17 08:17) Complete Blood Count With Diff (02/11/17 08:17) Magnesium (Mg) (02/11/17 08:17) Prothrombin Time / Inr (Pt) (02/11/17 08:17) Act Partial Throm Time (Ptt) (02/11/17 08:17) Troponin I (02/11/17 08:17) Chest, Single Ap (02/11/17 08:17) Ecg Monitoring (02/11/17 08:17) Iv Access Insert/Monitor (02/11/17 08:17) Oximetry (02/11/17 08:17) Oxygen Administration (02/11/17 08:17) Aspirin Chew (Aspirin Chew) (02/11/17 08:30) Sodium Chloride 0.9% Flush (Ns Flush) (02/11/17 08:30) Furosemide Inj (Lasix Inj) (02/11/17 10:00) Admit Order (Ed Use Only) (02/11/17 10:24) Admit To Inpatient (02/11/17 ) Vital Signs (Adult) Q4H (02/11/17 10:31) Activity Oob With Assistance (02/11/17 10:31) Bedside Glucose DENYS.AC&HS (02/11/17 10:31) Intake + Output DENYS.QSHIFT (02/11/17 10:31) Diet 1800 Ada Cons Carb (02/11/17 Lunch) Sodium Chloride 0.9% Flush (Ns Flush) (02/11/17 10:45) Sodium Chloride 0.9% Flush (Ns Flush) (02/11/17 21:00) Comprehensive Metabolic Panel (02/12/17 06:00) Complete Blood Count With Diff (02/12/17 06:00) Troponin I (02/11/17 10:31) Troponin I (02/11/17 16:31) Electrocardiogram (02/11/17 10:31) Electrocardiogram (02/11/17 16:31) Pt Request For Service (02/11/17 10:31) Case Management Consult (02/11/17 10:31) Scd Bilateral/Knee High DENYS.BID (02/11/17 10:31) Naloxone Inj (Narcan Inj) (02/11/17 10:45) Docusate Sodium-Senna (Mela-Colace) (02/11/17 21:00) Magnesium Hydroxide Liq (Milk Of Magnesi (02/11/17 10:45) Sennosides (Senokot) (02/11/17 10:45) Bisacodyl Supp (Dulcolax Supp) (02/11/17 10:45) Lactulose Liq (Lactulose Liq) (02/11/17 10:45) Inpatient Certification (02/11/17 ) Consult Cardiology (02/11/17 ) Insulin Aspart Supplemtl Scale (Novolog (02/11/17 11:00) Aspirin Ec (Ecotrin Ec) (02/12/17 09:00) Clonazepam (Klonopin) (02/11/17 10:45) Acetamin-Hydrocod 325-10 Mg ([place] 10-32 (02/11/17 10:45) Lisinopril (Prinivil) (02/12/17 09:00) Metoprolol Succinate Er (Toprol Xl) (02/12/17 09:00) Spironolactone (Aldactone) (02/12/17 09:00) Torsemide (Demadex) (02/12/17 09:00) Warfarin (Coumadin) (02/12/17 09:00) Labs Laboratory Tests Test 02/11/17 08:35 White Blood Count 8.2 TH/MM3 Red Blood Count 3.98 MIL/MM3 Hemoglobin 11.5 GM/DL Hematocrit 34.8 % Mean Corpuscular Volume 87.6 FL Mean Corpuscular Hemoglobin 28.9 PG Mean Corpuscular Hemoglobin 33.0 % Concent Red Cell Distribution Width 17.0 % Platelet Count 223 TH/MM3 Mean Platelet Volume 7.9 FL Neutrophils (%) (Auto) 82.1 % Lymphocytes (%) (Auto) 6.9 % Monocytes (%) (Auto) 10.0 % Eosinophils (%) (Auto) 0.5 % Basophils (%) (Auto) 0.5 % Neutrophils # (Auto) 6.8 TH/MM3 Lymphocytes # (Auto) 0.6 TH/MM3 Monocytes # (Auto) 0.8 TH/MM3 Eosinophils # (Auto) 0.0 TH/MM3 Basophils # (Auto) 0.0 TH/MM3 CBC Comment DIFF FINAL Differential Comment Prothrombin Time 22.4 SEC Prothromb Time International 2.0 RATIO Ratio Activated Partial 36.1 SEC Thromboplast Time Sodium Level 134 MEQ/L Potassium Level 3.5 MEQ/L Chloride Level 99 MEQ/L Carbon Dioxide Level 26.7 MEQ/L Anion Gap 8 MEQ/L Blood Urea Nitrogen 13 MG/DL Creatinine 0.87 MG/DL Estimat Glomerular Filtration 87 ML/MIN Rate Random Glucose 199 MG/DL Calcium Level 8.6 MG/DL Magnesium Level 1.5 MG/DL Total Creatine Kinase 49 U/L Troponin I LESS THAN 0.02 NG/ML B-Type Natriuretic Peptide 987 PG/ML MDM Medical Decision Making Medical Screen Exam Complete: Yes Emergency Medical Condition: Yes Medical Record Reviewed: Yes Differential Diagnosis NSTEMI, unstable angina, coronary vasospasm, PE, PTX, aortic dissection, pericarditis, myocarditis, endocarditis, PNA, esophageal disease, aneurysm, musculoskeletal etiologies, anxiety, cocaine/sympathomimetic abuse Narrative Course CBC & BMP Diagram 02/11/17 08:35 Troponin less than 0.02 BNP 987 EKG reveals a sinus rhythm with a rate of 66 T-wave inversions are present in the inferior leads which appear new Coronary catheter reveals various luminal irregularities; coronary catheterization was performed in November 2016 40 mg Lasix given here. Case discussed with Dr. Restrepo for the hospitalist service. Diagnosis Primary Impression: CHF (congestive heart failure) Qualified Code: I50.9 - Congestive heart failure, unspecified congestive heart failure chronicity, unspecified congestive heart failure type Additional Impression: Chest pain Qualified Code: R07.9 - Chest pain, unspecified type Admitting Information Admitting Physician Requests: it Richie Beltran MD Feb 11, 2017 10:16
[2017-02-11] MEDS ORDERED: BISACODYL 10 MG SUPP RECTAL PRN (10:45)
[2017-02-11] MEDS ORDERED: SODIUM CHLORIDE 0.9% FLUSH 10 ML FLUSH IV FLUSH PRN (10:45)
[2017-02-11] MEDS ORDERED: NALOXONE HCL 0.4 MG/ML AMP IV PRN (10:45)
[2017-02-11] MEDS ORDERED: LACTULOSE SYRUP 20 GM/30 ML CUP PO PRN (10:45)
[2017-02-11] MEDS ORDERED: MAGNESIUM HYDROXIDE SUSP 30 ML CUP PO PRN (10:45)
[2017-02-11] MEDS ORDERED: SENNOSIDES 8.6 MG TAB PO PRN (10:45)
--- NOTE | 2017-02-11 12:06 | HHI.HP ---
HPI Service [facility] Primary Care Physician Kwesi Joseph MD Admission Diagnosis CHF, chest pain Diagnoses: Chief Complaint: shortness of breath, chest pain Travel History International Travel<30 Days: No Contact w/Intl Traveler <30 Da: No Traveled to Known Affected Are: No History of Present Illness Written by Krystal Arteaga, acting as scribe for Dr. Restrepo on 02/11/17 at 11:55. 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 He states a few days ago he started to notice worsening shortness of breath at rest and much worse with exertion. Denies orthopnea or lower extremity edema however states he doesn't usually have edema with his CHF exacerbations. He states he couldn't even ambulate to the bathroom without becoming very winded. He reports an episode of chest pain around 9pm last night , described as constant dull, deep, located substernally without radiation, worse with any exertion. He reports similar chest pain last time he came to the hospital. He reports compliance with his medications, has not missed any doses, however did run out of his oxygen. He doesn't feel that the oxygen helps him much. He also reports mild rhinitis and occasional dry cough which is chronic for him. Denies any abdominal pain, nausea/vomiting, or diarrhea. He does have occasional constipation. Denies any recent weight gain and actually reports 10lbs weight loss over the past month which he attributes to decreased appetite. He also has lower extremity weakness over the past day, denies numbness/tingling. Denies any recent injury. Denies any other medical complaints at this time. Review of Systems Except as stated in HPI: all other systems reviewed are Neg Past Family Social History Past Medical History Anxiety/depression History of TIA Chronic systolic congestive heart failure History of Pulmonary Embolism on Coumadin Cardiomyopathy Hypertension History of seizures 20 years ago Diabetes mellitus type 2 Anti-phospholipid syndrome Past Surgical History Back/neck surgeries x 6 Lung surgery secondary to pneumothorax Cholecystectomy Appendectomy Reported Medications Aldactone (Spironolactone) 25 Mg Tab 25 Mg PO DAILY Metoprolol Succinate ER 24 HR (Metoprolol Succinate) 25 Mg Tab 37.5 Mg PO DAILY Warfarin 4 Mg Tab 4 Mg PO DAILY Torsemide 20 Mg Tab 20 Mg PO DAILY Klonopin (Clonazepam) 1 Mg Tab 1 Mg PO Q8HR PRN Lisinopril 5 Mg Tab 5 Mg PO DAILY Aspirin 81 (Aspirin) 81 Mg Tabdr 81 Mg PO DAILY [place] (Hydrocodone-Acetaminophen) 10-325 Mg Tab 1 Tab PO Q8HR PRN Metformin (Metformin HCl) 500 Mg Tab 500 Mg PO DAILY With a meal Allergies: Coded Allergies: Morphine (Verified Allergy, Severe, Itching, 02/11/17) *MDRO Multi-Drug Resistant Organism (Verified Adverse Reaction, Unknown, ) 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/16 Active Ordered Medications Current Medications Medications (Trade) Dose Ordered Sig/Keiko Route Start Time Stop Time Status Last Admin (NS Flush) 2 ml UNSCH PRN IVF 02/11/17 08:30 (NS Flush) 2 ml BID IV FLUSH 02/11/17 21:00 (Narcan Inj) 0.4 mg UNSCH PRN IV 02/11/17 10:45 (Mela-Colace) 1 tab BID PO 02/11/17 21:00 (Milk Of Magnesia Liq) 30 ml Q12H PRN PO 02/11/17 10:45 UNV (Senokot) 17.2 mg Q12H PRN PO 02/11/17 10:45 (Dulcolax Supp) 10 mg DAILY PRN RECTAL 02/11/17 10:45 (Lactulose Liq) 30 ml DAILY PRN PO 02/11/17 10:45 UNV (Ecotrin Ec) 81 mg DAILY PO 02/12/17 09:00 UNV (KlonoPIN) 1 mg Q8HR PRN PO 02/11/17 10:45 UNV ([place] 10-325 Mg) 1 tab Q8HR PRN PO 02/11/17 10:45 UNV (Prinivil) 5 mg DAILY PO 02/12/17 09:00 UNV (Toprol Xl) 37.5 mg DAILY PO 02/12/17 09:00 UNV (Aldactone) 25 mg DAILY PO 02/12/17 09:00 UNV (Demadex) 20 mg DAILY PO 02/12/17 09:00 UNV (Coumadin) 4 mg DAILY PO 02/12/17 09:00 UNV Family History Father with heart disease/NH, liver cancer, Mother with CHF Sister with diabetes Social History Denies any tobacco or alcohol use. Quit smoking 30+ years ago. 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 Physical Exam Vital Signs Vital Signs Date Time Temp Pulse Resp B/P Pulse Ox O2 Delivery O2 Flow Rate FiO2 02/11/17 11:00 66 18 98/52 100 Room Air 2 02/11/17 10:00 69 16 103/59 96 Room Air 2 02/11/17 08:10 92 Nasal Cannula 2 02/11/17 08:10 29 94 Room Air 02/11/17 08:10 98.1 74 29 104/58 94 Physical Exam GENERAL: Well-developed thin male patient in NAD. SKIN: Warm and dry. HEAD: Atraumatic. Normocephalic. EYES: Pupils equal and round. No scleral icterus. No injection or drainage. ENT: No nasal bleeding or discharge. Mucous membranes pink and moist. NECK: Trachea midline. CARDIOVASCULAR: Regular rate and rhythm. No murmur appreciated. RESPIRATORY: No accessory muscle use. Clear to auscultation. Breath sounds equal bilaterally. GASTROINTESTINAL: Abdomen soft, non-tender, nondistended. Hepatic and splenic margins not palpable. Diffuse tender ecchymosis across right lower quadrant. MUSCULOSKELETAL: Extremities without clubbing, cyanosis, or edema. No obvious deformities. NEUROLOGICAL: Awake and alert. No obvious cranial nerve deficits. Motor grossly within normal limits. 5/5 muscle strength in bilateral upper and lower extremities. 2+ b/l patellar DTRs. Normal speech. PSYCHIATRIC: Appropriate mood and affect; insight and judgment normal. Laboratory Laboratory Tests Test 02/11/17 08:35 White Blood Count 8.2 Red Blood Count 3.98 Hemoglobin 11.5 Hematocrit 34.8 Mean Corpuscular Volume 87.6 Mean Corpuscular Hemoglobin 28.9 Mean Corpuscular Hemoglobin 33.0 Concent Red Cell Distribution Width 17.0 Platelet Count 223 Mean Platelet Volume 7.9 Neutrophils (%) (Auto) 82.1 Lymphocytes (%) (Auto) 6.9 Monocytes (%) (Auto) 10.0 Eosinophils (%) (Auto) 0.5 Basophils (%) (Auto) 0.5 Neutrophils # (Auto) 6.8 Lymphocytes # (Auto) 0.6 Monocytes # (Auto) 0.8 Eosinophils # (Auto) 0.0 Basophils # (Auto) 0.0 CBC Comment DIFF FINAL Differential Comment Prothrombin Time 22.4 Prothromb Time International 2.0 Ratio Activated Partial 36.1 Thromboplast Time Sodium Level 134 Potassium Level 3.5 Chloride Level 99 Carbon Dioxide Level 26.7 Anion Gap 8 Blood Urea Nitrogen 13 Creatinine 0.87 Estimat Glomerular Filtration 87 Rate Random Glucose 199 Calcium Level 8.6 Magnesium Level 1.5 Total Creatine Kinase 49 Troponin I LESS THAN 0.02 B-Type Natriuretic Peptide 987 Result Diagram: 02/11/17 0835 02/11/17 0835 Imaging Last Impressions Chest X-Ray 02/11/17 0817 Signed Impressions: Service Date/Time: Thursday, February 11, 2017 09:04 - CONCLUSION: Congestive failure, improved from comparison. Larry Sharma MD FACR Assessment and Plan Problem List: (1) Acute exacerbation of congestive heart failure ICD Code: I50.9 Status: Acute (2) Non-ischemic cardiomyopathy ICD Code: I42.8 Status: Acute (3) Atypical chest pain ICD Code: R07.89 Status: Resolved (4) DM (diabetes mellitus) ICD Code: E11.9 Status: Chronic Assessment and Plan 71-year-old male with history of Nonischemic Cardiomyopathy, Chronic Systolic CHF EF 15% 11/01/16, Pulmonary Embolism on Coumadin, Diabetes Mellitus, presents with a 2-3day history of worsening shortness of breath, dyspnea on exertion, and chest pain. Acute Exacerbation of Chronic Systolic CHF: Recent echo 11/01/16 with EF 15%. S/ p cardiac cath 11/24/16 consistent with nonischemic cardiomyopathy EF 15%. BNP elevated at 987. CXR images reviewed, shows congestive failure. -Continue diuresis with torsemide 20mg daily -Monitor Is&Os -fluid restrictions to 1500ml daily -continue patient's BB, ACEi -cardiology consulted Chest Pain: atypical, constant, likely secondary to above. Doubt recurrent PE while on Coumadin with therapeutic INR. -initial troponin negative however EKG with new [place] inversions -continue to trend serial cardiac enzymes and EKGs -continue BB, ACEi, aspirin -nitro prn -monitor on telemetry -cardiology consulted Hx of Pulmonary Embolism: on Coumadin, INR therapeutic at 2.0 -continue Coumadin -monitor INR Diabetes Mellitus: chronic, last HgbA1c 8.6 -check A1c -hold patient's metformin for now -Monitor accu-checks and cover with SSI All other medical conditions stable, continue home medications as appropriate. DVT Prophylaxis: On Coumadin Code Status DNR Discussed Condition With Patient, ER MD Physician Certification 2 Midnight Certification Type: Admission for Inpatient Services Order for Inpatient Services The services are ordered in accordance with Medicare regulations or non- Medicare payer requirements, as applicable. In the case of services not specified as inpatient-only, they are appropriately provided as inpatient services in accordance with the 2-midnight benchmark. Estimated LOS (days): 3 days is the estimated time the patient will need to remain in the hospital, assuming treatment plan goals are met and no additional complications. Post-Hospital Plan: Home Notes: This note was transcribed by israel [Krystal Arteaga]. I, Dr. Sadiq Restrepo personally performed the history, physical exam, and medical decision making; and confirmed the accuracy of the information in the transcribed note. Authenticated by Dr. Sadiq Restrepo on 02/12/17 at 09:15. Krystal Arteaga PA-C Feb 11, 2017 12:05 Sadiq Restrepo MD Feb 12, 2017 09:15
[2017-02-11] MEDS ORDERED: GLUCAGON 1 MG/ML VIAL OTHER PRN (12:15)
[2017-02-11] MEDS ORDERED: DEXTROSE 50% IN WATER 50 ML VIAL(D50) IV PUSH PRN (12:15)
[2017-02-11] MEDS: INSULIN ASPART SUPPLEMENTAL SCALE SQ SCH ×3 (12:49→21:49)
[2017-02-11] MEDS ORDERED: NITROGLYCERIN 0.4 MG SL 25 TABS/BTL SL PRN (16:00)
--- NOTE | 2017-02-11 17:21 | PD.CONS ---
HPI Consult Requested By Primary Care Physician Kwesi Joseph MD History of Present Illness 71 y/o M with pmhx significant for nonischemic cardiomyopathy estimated EF 15%, pulmonary embolism on coumadin, DM, homeless that presents with complaints of 3 days of worsening shortness of breath with minimal exertion NYHA III, with associated chest pain. Denies orthopnea, lower extremity edema, noncompliance with medications or diet. Cardiology consulted fo further management and evaluation. Review of Systems Consitutional: COMPLAINS OF: Fatigue, DENIES: Fever, Chills, Weight gain, Weight loss Eyes: DENIES: Amaurosis Fugax, Change in vision HEENT: DENIES: Lightheadedness, Change in hearing Respiratory: COMPLAINS OF: Shortness of breath, DENIES: See HPI, Cough, Snoring, Wheezing, Sputum production Cardiovascular: COMPLAINS OF: Chest pain, DENIES: See HPI, Palpitations, Syncope, Tachycardia Gastrointestinal: DENIES: Nausea, Vomiting, Change in bowel habits, Reflux, Bloody stools, Melena Genitourinary: DENIES: Urinary incontinence, Difficulty voiding Integumentary: DENIES: Rash Neurologic: DENIES: Tingling or numbness, Memory problems, Poor Balance, Stroke symptoms Musculoskeletal: DENIES: Joint pain, Muscle pain, Limited range of motion, Back pain Psychiatric: DENIES: Anxiety, Depression, Sleep disturbances Hematologic: DENIES: Bruising tendencies, Bleeding tendencies Endocrine: DENIES: Weight gain, Weight loss, Thyroid disease Past Family Social History Allergies: Coded Allergies: Morphine (Verified Allergy, Severe, Itching, 02/11/17) *MDRO Multi-Drug Resistant Organism (Verified Adverse Reaction, Unknown, ) 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/16 Past Medical History Anxiety/depression History of TIA Chronic systolic congestive heart failure History of Pulmonary Embolism on Coumadin Cardiomyopathy Hypertension History of seizures 20 years ago Diabetes mellitus type 2 Anti-phospholipid syndrome Past Surgical History Back/neck surgeries x 6 Lung surgery secondary to pneumothorax Cholecystectomy Appendectomy Reported Medications Reported Meds & Active Scripts Active Aldactone (Spironolactone) 25 Mg Tab 25 Mg PO DAILY Metoprolol Succinate ER 24 HR (Metoprolol Succinate) 25 Mg Tab 37.5 Mg PO DAILY Warfarin 4 Mg Tab 4 Mg PO DAILY Torsemide 20 Mg Tab 20 Mg PO DAILY Klonopin (Clonazepam) 1 Mg Tab 1 Mg PO Q8HR PRN Lisinopril 5 Mg Tab 5 Mg PO DAILY Reported Aspirin 81 (Aspirin) 81 Mg Tabdr 81 Mg PO DAILY [place] (Hydrocodone-Acetaminophen) 10-325 Mg Tab 1 Tab PO Q8HR PRN Metformin (Metformin HCl) 500 Mg Tab 500 Mg PO DAILY With a meal Active Ordered Medications Current Medications Medications (Trade) Dose Ordered Sig/Keiko Route Start Time Stop Time Status Last Admin (NS Flush) 2 ml UNSCH PRN IVF 02/11/17 08:30 (NS Flush) 2 ml BID IV FLUSH 02/11/17 21:00 (Narcan Inj) 0.4 mg UNSCH PRN IV 02/11/17 10:45 (Mela-Colace) 1 tab BID PO 02/11/17 21:00 (Milk Of Magnesia Liq) 30 ml Q12H PRN PO 02/11/17 10:45 (Senokot) 17.2 mg Q12H PRN PO 02/11/17 10:45 (Dulcolax Supp) 10 mg DAILY PRN RECTAL 02/11/17 10:45 (Lactulose Liq) 30 ml DAILY PRN PO 02/11/17 10:45 (Ecotrin Ec) 81 mg DAILY PO 02/12/17 09:00 (KlonoPIN) 1 mg Q8HR PRN PO 02/11/17 10:45 ([place] 10-325 Mg) 1 tab Q8HR PRN PO 02/11/17 10:45 (Prinivil) 5 mg DAILY PO 02/12/17 09:00 (Toprol Xl) 37.5 mg DAILY PO 02/12/17 09:00 (Aldactone) 25 mg DAILY PO 02/12/17 09:00 (Demadex) 20 mg DAILY PO 02/12/17 09:00 (Coumadin) 4 mg DAILY@06 PO 02/12/17 06:00 (D50w (Vial) Inj) 50 ml UNSCH PRN IV PUSH 02/11/17 12:15 (Glucagon Inj) 1 mg UNSCH PRN OTHER 02/11/17 12:15 (Nitrostat Sl) 0.4 mg Q5M PRN SL 02/11/17 16:00 Social History Homeless Former smoker Denies alcohol Physical Exam Vital Signs Vital Signs Date Time Temp Pulse Resp B/P Pulse Ox O2 Delivery O2 Flow Rate FiO2 02/11/17 12:53 97.8 71 18 109/64 97 Nasal Cannula 2 02/11/17 11:00 66 18 98/52 100 Room Air 2 02/11/17 10:00 69 16 103/59 96 Room Air 2 02/11/17 08:10 92 Nasal Cannula 2 02/11/17 08:10 29 94 Room Air 02/11/17 08:10 98.1 74 29 104/58 94 Physical Exam GENERAL: Well-nourished, well-developed patient. SKIN: Warm and dry. HEAD: Normocephalic. EYES: No scleral icterus. No injection or drainage. NECK: Supple, trachea midline. No JVD or lymphadenopathy. CARDIOVASCULAR: Regular rate and rhythm without murmurs, gallops, or rubs. RESPIRATORY: Rales Right > left no wheezing or rhonchi. GASTROINTESTINAL: Abdomen soft, non-tender, nondistended. EXTREMITIES: No cyanosis, or edema. NEUROLOGICAL: Awake, alert, and oriented x 3. Non-focal. Laboratory Laboratory Tests Test 02/11/17 02/11/17 08:35 15:15 White Blood Count 8.2 Red Blood Count 3.98 Hemoglobin 11.5 Hematocrit 34.8 Mean Corpuscular Volume 87.6 Mean Corpuscular Hemoglobin 28.9 Mean Corpuscular Hemoglobin 33.0 Concent Red Cell Distribution Width 17.0 Platelet Count 223 Mean Platelet Volume 7.9 Neutrophils (%) (Auto) 82.1 Lymphocytes (%) (Auto) 6.9 Monocytes (%) (Auto) 10.0 Eosinophils (%) (Auto) 0.5 Basophils (%) (Auto) 0.5 Neutrophils # (Auto) 6.8 Lymphocytes # (Auto) 0.6 Monocytes # (Auto) 0.8 Eosinophils # (Auto) 0.0 Basophils # (Auto) 0.0 CBC Comment DIFF FINAL Differential Comment Prothrombin Time 22.4 Prothromb Time International 2.0 Ratio Activated Partial 36.1 Thromboplast Time Sodium Level 134 Potassium Level 3.5 Chloride Level 99 Carbon Dioxide Level 26.7 Anion Gap 8 Blood Urea Nitrogen 13 Creatinine 0.87 Estimat Glomerular Filtration 87 Rate Random Glucose 199 Calcium Level 8.6 Magnesium Level 1.5 Total Creatine Kinase 49 Troponin I LESS THAN 0.02 LESS THAN 0.02 B-Type Natriuretic Peptide 987 Result Diagram: 02/11/17 0835 02/11/17 0835 Imaging Last Impressions Chest X-Ray 02/11/17816 Signed Impressions: Service Date/Time: Saturday, February 11, 2017 09:04 - CONCLUSION: Congestive failure, improved from comparison. Larry Sharma MD FACR Assessment and Plan Problem List: (1) CHF (congestive heart failure) Assessment and Plan: Acute of chronic systolic HF. Recommendations: 1. Strict I&O 2. Daily weight 3. Low salt diet 4. IV diuresis 5. Avoid electrolytes abnormalities 6. Cont ASA, BB, ACEi, Aldactone, statin 7. Toxicology screen (2) Dilated cardiomyopathy (3) Dyspnea (4) Dyslipidemia (5) Pulmonary embolism (6) HTN (hypertension) (7) DM2 (diabetes mellitus, type 2) (8) Chest pain (9) Hyperlipidemia Problem Qualifiers (1) CHF (congestive heart failure): Qualified Code: I50.43 - Acute on chronic combined systolic and diastolic congestive heart failure (2) Chest pain: Qualified Code: R07.9 - Chest pain, unspecified type Juarez Ragland MD Feb 11, 2017 17:21
[2017-02-11 18:59] LABS: HEMOGLOBIN A1a 1.5 %; HEMOGLOBIN F 1.4 %; HEMOGLOBIN LA1C 2.6 %; HEMOGLOBIN P3 6.3 %
[2017-02-11] MEDS: clonazePAM 1 MG TAB PO PRN (21:46)
[2017-02-11] MEDS: DOCUSATE SODIUM 50 MG/SENNA 8.6 MG TAB PO SCH (21:46)
[2017-02-11] MEDS: SODIUM CHLORIDE 0.9% FLUSH 10 ML FLUSH IV FLUSH SCH (21:49)
[2017-02-12] VITALS (9 sets, daily range): BP systolic 97–134; BP diastolic 52–74; PULSE 69–92; RESP 16–18; TEMP 97.5–98.9; O2SAT 93–100
[2017-02-12] MEDS: WARFARIN SOD 4 MG TAB PO SCH (05:26)
[2017-02-12] MEDS: INSULIN ASPART SUPPLEMENTAL SCALE SQ SCH ×4 (06:00→21:45)
[2017-02-12] MEDS: TORSEMIDE 20 MG TAB PO SCH (08:08)
[2017-02-12] MEDS: LISINOPRIL 5 MG TAB PO SCH (08:08)
[2017-02-12] MEDS: METOPROLOL SUCCINATE 25 MG EXTENDED RELEASE TAB PO SCH (08:08)
[2017-02-12] MEDS: SPIRONOLACTONE 25 MG TAB PO SCH (08:08)
[2017-02-12] MEDS: DOCUSATE SODIUM 50 MG/SENNA 8.6 MG TAB PO SCH ×2 (08:08→21:34)
[2017-02-12] MEDS: ASPIRIN EC 81 MG TABEC PO SCH (08:08)
[2017-02-12] MEDS: SODIUM CHLORIDE 0.9% FLUSH 10 ML FLUSH IV FLUSH SCH ×2 (08:09→21:34)
--- NOTE | 2017-02-12 08:12 | EKG ---
Date Performed: 02/11/2017 Time Performed: 08:13:33 PTAGE: 71 years EKG: Sinus rhythm MARKED LEFT AXIS DEVIATION NONSPECIFIC T-WAVE ABNORMALITY ABNORMAL ECG NO PREVIOUS TRACING DOCTOR: Juarez Ragland Interpretating Date/Time 02/12/2017 08:06:32
[2017-02-12] MEDS: ACETAMINOPHEN/HYDROcodone 325 MG/10 MG TAB PO PRN ×2 (08:18→16:08)
[2017-02-12 08:49] LABS: AUTOMATED NEUTROPHIL # 6.1 TH/MM3 (1.8-7.7); BASOPHIL % 0.3 % (0.0-2.0); EOSINOPHIL # 0.1 TH/MM3 (0-0.4); EOSINOPHIL % 0.8 % (0.0-4.0); HEMATOCRIT 40.4 % (39.0-51.0); HEMO FLAGS DIFF FINAL; LYMPH % 10.9 % (9.0-44.0); LYMPHOCYTE # 0.9 TH/MM3 (1.0-4.8); MEAN CELL VOLUME 87.9 FL (80.0-100.0); MEAN CORPUSCULAR HEMOGLOBIN 29.5 PG (27.0-34.0); MEAN CORPUSCULAR HGB CONC 33.6 % (32.0-36.0); MONO % 12.2 % (0.0-8.0); NEUT % 75.8 % (16.0-70.0); PLATELET COUNT 239 TH/MM3 (150-450); RED CELL DISTRIBUTION WIDTH 17.1 % (11.6-17.2)
[2017-02-12 09:24] LABS: ALKALINE PHOSPHATASE 99 U/L (45-117); ALT (GPT) 27 U/L (12-78); ANION GAP 8 MEQ/L (5-15); AST (GOT) 24 U/L (15-37); BICARBONATE 30.2 MEQ/L (21.0-32.0); BLOOD UREA NITROGEN 12 MG/DL (7-18); CHLORIDE 98 MEQ/L (98-107); GLOMERULAR FILTRATION RATE 82 ML/MIN (>89); POTASSIUM 3.2 MEQ/L (3.5-5.1); SODIUM (NA) 136 MEQ/L (136-145); TOTAL BILIRUBIN ADULT 0.8 MG/DL (0.2-1.0)
[2017-02-12] MEDS ORDERED: FUROSEMIDE 20 MG/2 ML VIAL IV PUSH ONE (09:30)
[2017-02-12] MEDS ORDERED: POTASSIUM CHLORIDE 10 MEQ CONTROLLED RELEASE TAB PO ONE (09:30)
--- NOTE | 2017-02-12 11:21 | EKG ---
Date Performed: 02/11/2017 Time Performed: 15:24:16 PTAGE: 71 years EKG: Normal Sinus rhythm Left axis deviation Left anterior fascicular block Nonspecific ST-T wave changes PREVIOUS TRACING : 02/11/2017 08.13 No major change from the prior tracing. DOCTOR: Tung Baires Interpretating Date/Time 02/12/2017 11:20:58
--- NOTE | 2017-02-12 13:22 | PD.CARD.PN ---
Subjective Subjective Remarks better from SOB Objective Medications Current Medications Medications (Trade) Dose Ordered Sig/Keiko Route Start Time Stop Time Status Last Admin (NS Flush) 2 ml UNSCH PRN IVF 02/11/17 08:30 (NS Flush) 2 ml BID IV FLUSH 02/11/17 21:00 02/12/17 08:09 (Narcan Inj) 0.4 mg UNSCH PRN IV 02/11/17 10:45 (Mela-Colace) 1 tab BID PO 02/11/17 21:00 02/12/17 08:08 (Milk Of Magnesia Liq) 30 ml Q12H PRN PO 02/11/17 10:45 (Senokot) 17.2 mg Q12H PRN PO 02/11/17 10:45 (Dulcolax Supp) 10 mg DAILY PRN RECTAL 02/11/17 10:45 (Lactulose Liq) 30 ml DAILY PRN PO 02/11/17 10:45 (Ecotrin Ec) 81 mg DAILY PO 02/12/17 09:00 02/12/17 08:08 (KlonoPIN) 1 mg Q8HR PRN PO 02/11/17 10:45 02/11/17 21:46 ([place] 10-325 Mg) 1 tab Q8HR PRN PO 02/11/17 10:45 02/12/17 08:18 (Prinivil) 5 mg DAILY PO 02/12/17 09:00 02/12/17 08:08 (Toprol Xl) 37.5 mg DAILY PO 02/12/17 09:00 02/12/17 08:08 (Aldactone) 25 mg DAILY PO 02/12/17 09:00 02/12/17 08:08 (Demadex) 20 mg DAILY PO 02/12/17 09:00 02/12/17 08:08 (Coumadin) 4 mg DAILY@06 PO 02/12/17 06:00 02/12/17 05:26 (D50w (Vial) Inj) 50 ml UNSCH PRN IV PUSH 02/11/17 12:15 (Glucagon Inj) 1 mg UNSCH PRN OTHER 02/11/17 12:15 Nitroglycerin 0.4 mg 0.4 mg Q5M PRN SL 02/11/17 16:00 (Coumadin Consult Pharmacy) 0 ml @ 0 mls/hr UNSCH OTHER 02/12/17 09:30 (Lasix Inj) 40 mg BID@09,18 IV PUSH 02/12/17 18:00 Vital Signs / I&O Vital Signs Date Time Temp Pulse Resp B/P Pulse Ox O2 Delivery O2 Flow Rate FiO2 02/12/17 12:00 97.7 69 18 104/52 95 02/12/17 08:20 Nasal Cannula 2.00 02/12/17 08:00 98.5 77 18 134/70 99 02/12/17 07:59 81 02/12/17 04:00 Nasal Cannula 02/12/17 03:53 97.8 76 16 125/74 100 02/12/17 00:08 98.9 72 16 102/66 99 02/12/17 00:00 Nasal Cannula 02/11/17 20:45 92 02/11/17 19:13 98.6 87 16 102/58 96 02/11/17 18:57 98 24 121/74 96 I/O 02/11/17 02/11/17 02/11/17 02/12/17 02/12/17 02/12/17 07:00 15:00 23:00 07:00 15:00 23:00 Intake Total 570 ml 366 ml Output Total 800 ml 0 ml 500 ml Balance -800 ml 570 ml -134 ml Intake Oral 570 ml 360 ml IV Total 6 ml Output Urine Total 800 ml 0 ml 500 ml # Voids 3 # Bowel Movements 0 0 Physical Exam GENERAL: Well-nourished, well-developed patient. SKIN: Warm and dry. HEAD: Normocephalic. EYES: No scleral icterus. No injection or drainage. NECK: Supple, trachea midline. No JVD or lymphadenopathy. CARDIOVASCULAR: Regular rate and rhythm without murmurs, gallops, or rubs. RESPIRATORY: right lung rales no wheezing, no rhonchi. GASTROINTESTINAL: Abdomen soft, non-tender, nondistended. EXTREMITIES: No cyanosis, or edema. NEUROLOGICAL: Awake, alert, and oriented x 3. Non-focal. Laboratory Laboratory Tests Test 02/11/17 02/11/17 02/12/17 02/12/17 15:15 20:13 07:55 09:45 Troponin I LESS THAN 0.02 LESS THAN 0.02 NG/ML NG/ML White Blood Count 8.0 TH/MM3 Red Blood Count 4.60 MIL/MM3 Hemoglobin 13.6 GM/DL Hematocrit 40.4 % Mean Corpuscular Volume 87.9 FL Mean Corpuscular Hemoglobin 29.5 PG Mean Corpuscular Hemoglobin 33.6 % Concent Red Cell Distribution Width 17.1 % Platelet Count 239 TH/MM3 Mean Platelet Volume 7.8 FL Neutrophils (%) (Auto) 75.8 % Lymphocytes (%) (Auto) 10.9 % Monocytes (%) (Auto) 12.2 % Eosinophils (%) (Auto) 0.8 % Basophils (%) (Auto) 0.3 % Neutrophils # (Auto) 6.1 TH/MM3 Lymphocytes # (Auto) 0.9 TH/MM3 Monocytes # (Auto) 1.0 TH/MM3 Eosinophils # (Auto) 0.1 TH/MM3 Basophils # (Auto) 0.0 TH/MM3 CBC Comment DIFF FINAL Differential Comment Sodium Level 136 MEQ/L Potassium Level 3.2 MEQ/L Chloride Level 98 MEQ/L Carbon Dioxide Level 30.2 MEQ/L Anion Gap 8 MEQ/L Blood Urea Nitrogen 12 MG/DL Creatinine 0.92 MG/DL Estimat Glomerular Filtration 82 ML/MIN Rate Random Glucose 121 MG/DL Calcium Level 9.4 MG/DL Total Bilirubin 0.8 MG/DL Aspartate Amino Transf 24 U/L (AST/SGOT) Alanine Aminotransferase 27 U/L (ALT/SGPT) Alkaline Phosphatase 99 U/L Total Protein 7.5 GM/DL Albumin 3.0 GM/DL Nasal Screen MRSA (PCR) MRSA NOT DETECTED Imaging Last Impressions Chest X-Ray 02/11/17 0817 Signed Impressions: Service Date/Time: Saturday, February 11, 2017 09:04 - CONCLUSION: Congestive failure, improved from comparison. Larry Sharma MD FACR Assessment and Plan Problem List: (1) CHF (congestive heart failure) Assessment and Plan: Acute of chronic systolic CHF. Recommendations: 1. Strict I&O 2. Daily weight 3. Low salt diet 4. IV diuresis 5. Avoid electrolytes abnormalities 6. Cont ASA, BB, ACEi, Aldactone, statin 7. Toxicology screen (2) Dilated cardiomyopathy (3) Dyspnea (4) Dyslipidemia (5) Pulmonary embolism (6) HTN (hypertension) (7) DM2 (diabetes mellitus, type 2) (8) Chest pain (9) Hyperlipidemia Problem Qualifiers (1) CHF (congestive heart failure): Qualified Code: I50.43 - Acute on chronic combined systolic and diastolic congestive heart failure (2) Chest pain: Qualified Code: R07.9 - Chest pain, unspecified type Juarez Ragland MD Feb 12, 2017 13:22
[2017-02-12] MEDS ORDERED: POTASSIUM CHLORIDE 20 MEQ CONTROLLED RELEASE TAB PO ONE (15:15)
--- NOTE | 2017-02-12 17:40 | HHI.PR ---
Subjective Remarks Patient seen today around 11:30 AM. The shortness of breath is a little better. Does report cough productive of yellow sputum over the past 2 days. Objective Vital Signs Date Time Temp Pulse Resp B/P Pulse Ox O2 Delivery O2 Flow Rate FiO2 02/12/17 16:00 Nasal Cannula 2.00 02/12/17 12:01 Nasal Cannula 2.00 02/12/17 12:00 97.7 69 18 104/52 95 02/12/17 08:20 Nasal Cannula 2.00 02/12/17 08:00 98.5 77 18 134/70 99 02/12/17 07:59 81 02/12/17 04:00 Nasal Cannula 02/12/17 03:53 97.8 76 16 125/74 100 02/12/17 00:08 98.9 72 16 102/66 99 02/12/17 00:00 Nasal Cannula 02/11/17 20:45 92 02/11/17 19:13 98.6 87 16 102/58 96 02/11/17 18:57 98 24 121/74 96 I/O 02/11/17 02/11/17 02/11/17 02/12/17 02/12/17 02/12/17 07:00 15:00 23:00 07:00 15:00 23:00 Intake Total 570 ml 366 ml Output Total 800 ml 0 ml 500 ml Balance -800 ml 570 ml -134 ml Intake Oral 570 ml 360 ml IV Total 6 ml Output Urine Total 800 ml 0 ml 500 ml # Voids 3 # Bowel Movements 0 0 Result Diagram: 02/12/17 0755 02/12/17 0755 Objective Remarks GENERAL: patient sitting up in bed. Appears comfortable. SKIN: Warm and dry. HEAD: Normocephalic. EYES: No scleral icterus. No injection or drainage. NECK: Supple, trachea midline. No JVD CARDIOVASCULAR: Regular rate and rhythm without murmurs, gallops, or rubs. RESPIRATORY: Breath sounds equal bilaterally. No accessory muscle use. GASTROINTESTINAL: Abdomen soft, non-tender, nondistended. MUSCULOSKELETAL: No cyanosis, or edema. BACK: Nontender without obvious deformity. No CVA tenderness. A/P Assessment and Plan 02/12/17 Hypokalemia. Potassium 3.2. On diuretics. Potassium replaced. lasix iv ordered this am. Follow-up tomorrow morning And Levaquin for possible respiratory infection. 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 //Acute Exacerbation of Chronic Systolic CHF: Recent echo 11/01/16 with EF 15%. S /p cardiac cath 11/24/16 consistent with nonischemic cardiomyopathy EF 15%. BNP elevated at 987. CXR images reviewed, shows congestive failure. -Continue diuresis with torsemide 20mg daily -Monitor Is&Os -fluid restrictions to 1500ml daily -continue patient's BB, ACEi -cardiology following. Appreciate assistance. //Possible respiratory infection With cough production of yellow sputum over the past 2 days Start Levaquin. //Chest Pain: atypical, constant, likely secondary to above. Doubt recurrent PE while on Coumadin with therapeutic INR. -initial troponin negative however EKG with new Twave inversions -continue to trend serial cardiac enzymes and EKGs -continue BB, ACEi, aspirin -nitro prn -monitor on telemetry -cardiology consulted. Appreciate assistance. //Hx of Pulmonary Embolism: on Coumadin, INR therapeutic at 2.0 -continue Coumadin -monitor INR //Diabetes Mellitus: chronic, last HgbA1c 8.6 -check A1c -hold patient's metformin for now -Continue to Monitor accu-checks and cover with SSI //All other medical conditions stable, continue home medications as appropriate. //DVT Prophylaxis: On Coumadin Discharge Planning continues with treatment for CHF exacerbation. We'll need clearance from cardiology. Sadiq Restrepo MD Feb 12, 2017 17:40
[2017-02-12] MEDS: FUROSEMIDE 40 MG/4 ML VIAL IV PUSH SCH (17:44)
[2017-02-12 19:05] LABS: AMPHETAMINE, URINE NEG (NEG); BARBITURATES, URINE NEG (NEG); COCAINE, URINE NEG (NEG)
[2017-02-12] MEDS: clonazePAM 1 MG TAB PO PRN (21:34)
[2017-02-13] VITALS (7 sets, daily range): BP systolic 90–112; BP diastolic 55–61; PULSE 79–90; RESP 16–18; TEMP 97–98.3; O2SAT 97–99
[2017-02-13] MEDS: WARFARIN SOD 4 MG TAB PO SCH (05:18)
[2017-02-13] MEDS: ACETAMINOPHEN/HYDROcodone 325 MG/10 MG TAB PO PRN ×3 (05:19→23:59)
[2017-02-13] MEDS: INSULIN ASPART SUPPLEMENTAL SCALE SQ SCH ×4 (05:20→21:37)
--- NOTE | 2017-02-13 06:51 | PD.CARD.PN ---
Subjective Subjective Remarks " I rested all night" "SOB is better" No overnight events Objective Medications Current Medications Medications (Trade) Dose Ordered Sig/Keiko Route Start Time Stop Time Status Last Admin (NS Flush) 2 ml UNSCH PRN IVF 02/11/17 08:30 (NS Flush) 2 ml BID IV FLUSH 02/11/17 21:00 02/12/17 21:34 (Narcan Inj) 0.4 mg UNSCH PRN IV 02/11/17 10:45 (Mela-Colace) 1 tab BID PO 02/11/17 21:00 02/12/17 21:34 (Milk Of Magnesia Liq) 30 ml Q12H PRN PO 02/11/17 10:45 (Senokot) 17.2 mg Q12H PRN PO 02/11/17 10:45 02/13/17 00:52 (Dulcolax Supp) 10 mg DAILY PRN RECTAL 02/11/17 10:45 (Lactulose Liq) 30 ml DAILY PRN PO 02/11/17 10:45 (Ecotrin Ec) 81 mg DAILY PO 02/12/17 09:00 02/12/17 08:08 (KlonoPIN) 1 mg Q8HR PRN PO 02/11/17 10:45 02/12/17 21:34 ([place] 10-325 Mg) 1 tab Q8HR PRN PO 02/11/17 10:45 02/13/17 05:19 (Prinivil) 5 mg DAILY PO 02/12/17 09:00 02/12/17 08:08 (Toprol Xl) 37.5 mg DAILY PO 02/12/17 09:00 02/12/17 08:08 (Aldactone) 25 mg DAILY PO 02/12/17 09:00 02/12/17 08:08 (Demadex) 20 mg DAILY PO 02/12/17 09:00 02/12/17 08:08 (Coumadin) 4 mg DAILY@06 PO 02/12/17 06:00 02/13/17 05:18 (D50w (Vial) Inj) 50 ml UNSCH PRN IV PUSH 02/11/17 12:15 (Glucagon Inj) 1 mg UNSCH PRN OTHER 02/11/17 12:15 Nitroglycerin 0.4 mg 0.4 mg Q5M PRN SL 02/11/17 16:00 (Coumadin Consult Pharmacy) 0 ml @ 0 mls/hr UNSCH OTHER 02/12/17 09:30 (Lasix Inj) 40 mg BID@09,18 IV PUSH 02/12/17 18:00 02/12/17 17:44 (Levaquin) 750 mg DAILY PO 02/13/17 09:00 Vital Signs / I&O Vital Signs Date Time Temp Pulse Resp B/P Pulse Ox O2 Delivery O2 Flow Rate FiO2 02/13/17 03:07 98.3 80 16 106/61 99 02/12/17 23:00 97.9 92 16 97/53 93 02/12/17 20:00 81 02/12/17 19:30 97.5 79 16 102/65 98 02/12/17 19:00 Nasal Cannula 2.00 02/12/17 16:00 Nasal Cannula 2.00 02/12/17 16:00 98.0 71 18 99/54 100 02/12/17 12:01 Nasal Cannula 2.00 02/12/17 12:00 97.7 69 18 104/52 95 02/12/17 08:20 Nasal Cannula 2.00 02/12/17 08:00 98.5 77 18 134/70 99 02/12/17 07:59 81 I/O 02/12/17 02/12/17 02/12/17 02/13/17 02/13/17 02/13/17 06:59 14:59 22:59 06:59 14:59 22:59 Intake Total 1086 ml 960 ml 570 ml Output Total 1300 ml 1000 ml 600 ml Balance -214 ml -40 ml -30 ml Intake Oral 1080 ml 960 ml 570 ml IV Total 6 ml Output Urine Total 1300 ml 1000 ml 600 ml # Bowel Movements 0 1 0 Physical Exam GENERAL: Well-nourished, well-developed patient. SKIN: Warm and dry. HEAD: Normocephalic. EYES: No scleral icterus. No injection or drainage. NECK: Supple, trachea midline. No JVD or lymphadenopathy. CARDIOVASCULAR: Regular rate and rhythm without murmurs, gallops, or rubs. RESPIRATORY: right lung rales no wheezing, no rhonchi. GASTROINTESTINAL: Abdomen soft, non-tender, nondistended. EXTREMITIES: No cyanosis, or edema. NEUROLOGICAL: Awake, alert, and oriented x 3. Non-focal. Laboratory Laboratory Tests Test 02/12/17 02/12/17 02/12/17 07:55 09:45 18:30 White Blood Count 8.0 TH/MM3 Red Blood Count 4.60 MIL/MM3 Hemoglobin 13.6 GM/DL Hematocrit 40.4 % Mean Corpuscular Volume 87.9 FL Mean Corpuscular Hemoglobin 29.5 PG Mean Corpuscular Hemoglobin 33.6 % Concent Red Cell Distribution Width 17.1 % Platelet Count 239 TH/MM3 Mean Platelet Volume 7.8 FL Neutrophils (%) (Auto) 75.8 % Lymphocytes (%) (Auto) 10.9 % Monocytes (%) (Auto) 12.2 % Eosinophils (%) (Auto) 0.8 % Basophils (%) (Auto) 0.3 % Neutrophils # (Auto) 6.1 TH/MM3 Lymphocytes # (Auto) 0.9 TH/MM3 Monocytes # (Auto) 1.0 TH/MM3 Eosinophils # (Auto) 0.1 TH/MM3 Basophils # (Auto) 0.0 TH/MM3 CBC Comment DIFF FINAL Differential Comment Sodium Level 136 MEQ/L Potassium Level 3.2 MEQ/L Chloride Level 98 MEQ/L Carbon Dioxide Level 30.2 MEQ/L Anion Gap 8 MEQ/L Blood Urea Nitrogen 12 MG/DL Creatinine 0.92 MG/DL Estimat Glomerular Filtration 82 ML/MIN Rate Random Glucose 121 MG/DL Calcium Level 9.4 MG/DL Total Bilirubin 0.8 MG/DL Aspartate Amino Transf 24 U/L (AST/SGOT) Alanine Aminotransferase 27 U/L (ALT/SGPT) Alkaline Phosphatase 99 U/L Total Protein 7.5 GM/DL Albumin 3.0 GM/DL Nasal Screen MRSA (PCR) MRSA NOT DETECTED Urine Opiates Screen NEG Urine Barbiturates Screen NEG Urine Amphetamines Screen NEG Urine Benzodiazepines Screen NEG Urine Cocaine Screen NEG Urine Cannabinoids Screen POS Assessment and Plan Problem List: (1) CHF (congestive heart failure) Assessment and Plan: Assessment and Plan: Acute of chronic systolic CHF. Improvement of HF symptoms. Recommendations: 1. Strict I&O 2. Daily weight 3. Low salt diet 4. PO diuresis 5. Avoid electrolytes abnormalities 6. Cont ASA, BB, ACEi, Aldactone, statin 7. Refer to cardiac rehab 8. Schedule AICD as outpatient with Dr. Turner Sign off (2) Dilated cardiomyopathy (3) Dyspnea (4) Dyslipidemia (5) Pulmonary embolism (6) HTN (hypertension) (7) DM2 (diabetes mellitus, type 2) (8) Chest pain (9) Hyperlipidemia Problem Qualifiers (1) CHF (congestive heart failure): Qualified Code: I50.43 - Acute on chronic combined systolic and diastolic congestive heart failure (2) Chest pain: Qualified Code: R07.9 - Chest pain, unspecified type Juarez Ragland MD Feb 13, 2017 06:51
[2017-02-13] MEDS: LEVOFLOXACIN 750 MG TAB PO SCH (08:09)
[2017-02-13] MEDS: ASPIRIN EC 81 MG TABEC PO SCH (08:09)
[2017-02-13] MEDS: DOCUSATE SODIUM 50 MG/SENNA 8.6 MG TAB PO SCH ×2 (08:09→21:37)
[2017-02-13] MEDS: TORSEMIDE 20 MG TAB PO SCH (08:09)
[2017-02-13] MEDS: SPIRONOLACTONE 25 MG TAB PO SCH (08:09)
[2017-02-13] MEDS: LISINOPRIL 5 MG TAB PO SCH (08:09)
[2017-02-13] MEDS: FUROSEMIDE 40 MG/4 ML VIAL IV PUSH SCH (08:10)
[2017-02-13] MEDS: METOPROLOL SUCCINATE 25 MG EXTENDED RELEASE TAB PO SCH (08:10)
[2017-02-13] MEDS: SODIUM CHLORIDE 0.9% FLUSH 10 ML FLUSH IV FLUSH SCH ×2 (08:11→21:37)
[2017-02-13] MEDS: clonazePAM 1 MG TAB PO PRN (08:18)
[2017-02-13 09:52] LABS: AUTOMATED NEUTROPHIL # 6.8 TH/MM3 (1.8-7.7); BASOPHIL % 0.4 % (0.0-2.0); EOSINOPHIL # 0.1 TH/MM3 (0-0.4); HEMATOCRIT 39.7 % (39.0-51.0); HEMO FLAGS DIFF FINAL; LYMPH % 12.4 % (9.0-44.0); LYMPHOCYTE # 1.1 TH/MM3 (1.0-4.8); MEAN CELL VOLUME 88.4 FL (80.0-100.0); MEAN CORPUSCULAR HGB CONC 32.8 % (32.0-36.0); MONO % 9.2 % (0.0-8.0); PLATELET COUNT 270 TH/MM3 (150-450); RED BLOOD COUNT 4.49 MIL/MM3 (4.50-5.90); RED CELL DISTRIBUTION WIDTH 17.1 % (11.6-17.2); WHITE BLOOD COUNT 8.9 TH/MM3 (4.0-11.0)
[2017-02-13 09:56] LABS: INTERNATIONAL NORMALIZED RATIO 1.2 RATIO; PROTHROMBIN TIME - PATIENT 13.2 SEC (9.8-11.6)
[2017-02-13 10:20] LABS: BICARBONATE 28.3 MEQ/L (21.0-32.0); MAGNESIUM 1.6 MG/DL (1.5-2.5)
[2017-02-13] MEDS ORDERED: NOVOLOGSS SQ (16:24)
[2017-02-13] MEDS ORDERED: HYDR-3366 PO (16:24)
[2017-02-13] MEDS ORDERED: LEVA750T9 PO (16:24)
--- NOTE | 2017-02-13 23:21 | HHI.PR ---
Subjective Remarks Patient seen today around noon. Says he is feeling all right. But does not feel that he can go home. He reports that shortness of breath has improved. Objective Vital Signs Date Time Temp Pulse Resp B/P Pulse Ox O2 Delivery O2 Flow Rate FiO2 02/13/17 20:00 98.3 80 18 99/55 98 02/13/17 17:30 100/60 02/13/17 16:00 Room Air 02/13/17 16:00 97.0 86 18 90/60 98 02/13/17 12:00 Room Air 02/13/17 12:00 97.0 88 18 101/55 97 02/13/17 08:36 90 02/13/17 08:00 97.0 85 18 112/59 97 02/13/17 08:00 Room Air 02/13/17 03:07 98.3 80 16 106/61 99 I/O 02/12/17 02/12/17 02/12/17 02/13/17 02/13/17 02/13/17 07:00 15:00 23:00 07:00 15:00 23:00 Intake Total 1086 ml 960 ml 570 ml 960 ml 360 ml Output Total 1300 ml 1000 ml 600 ml 1200 ml 450 ml Balance -214 ml -40 ml -30 ml -240 ml -90 ml Intake Oral 1080 ml 960 ml 570 ml 960 ml 360 ml IV Total 6 ml Output Urine Total 1300 ml 1000 ml 600 ml 1200 ml 450 ml # Bowel Movements 0 1 0 1 0 Result Diagram: 02/13/1757 02/13/1757 Imaging Last Impressions Chest X-Ray 02/11/17816 Signed Impressions: Service Date/Time: Saturday, February 11, 2017 09:04 - CONCLUSION: Congestive failure, improved from comparison. Larry Sharma MD FACR Objective Remarks GENERAL: patient sitting up in bed. Appears comfortable.appears to be breathing comfortably. SKIN: Warm and dry. HEAD: Normocephalic. EYES: No scleral icterus. No injection or drainage. NECK: Supple, trachea midline. No JVD CARDIOVASCULAR: Regular rate and rhythm without murmurs, gallops, or rubs. RESPIRATORY: Breath sounds equal bilaterally. No accessory muscle use. GASTROINTESTINAL: Abdomen soft, non-tender, nondistended. MUSCULOSKELETAL: No cyanosis, or edema. BACK: Nontender without obvious deformity. No CVA tenderness. A/P Assessment and Plan 02/13/17 Hypokalemia. Potassium 4.0. Resolved. -Continue antibiotics for respiratory infection. -Cardiology recommendations appreciated. Discharge on fluid restrictions, diuretics. Follow with cardiology as outpatient. -Appreciate physical therapy assistance. Discharge to SNF. 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 //Acute Exacerbation of Chronic Systolic CHF: Recent echo 11/01/16 with EF 15%. S /p cardiac cath 11/24/16 consistent with nonischemic cardiomyopathy EF 15%. BNP elevated at 987. CXR images reviewed, shows congestive failure. -Continue diuresis with torsemide 20mg daily -Monitor Is&Os -fluid restrictions to 1500ml daily -continue patient's BB, ACEi -cardiology following. Appreciate assistance. //Possible respiratory infection With cough production of yellow sputum over the past 2 days Start Levaquin. //Chest Pain: atypical, constant, likely secondary to above. Doubt recurrent PE while on Coumadin with therapeutic INR. -initial troponin negative however EKG with new Twave inversions -continue to trend serial cardiac enzymes and EKGs -continue BB, ACEi, aspirin -nitro prn -monitor on telemetry -cardiology consulted. Appreciate assistance. //Hx of Pulmonary Embolism: on Coumadin, INR therapeutic at 2.0 -continue Coumadin -monitor INR //Diabetes Mellitus: chronic, last HgbA1c 8.6 -check A1c -hold patient's metformin for now -Continue to Monitor accu-checks and cover with SSI //All other medical conditions stable, continue home medications as appropriate. //DVT Prophylaxis: On Coumadin Discharge Planning discharge to SNF. Sadiq Restrepo MD Feb 13, 2017 23:21
[2017-02-14] VITALS (7 sets, daily range): BP systolic 90–112; BP diastolic 54–65; PULSE 70–89; RESP 16–20; TEMP 97.2–98.9; O2SAT 93–98
[2017-02-14] MEDS: INSULIN ASPART SUPPLEMENTAL SCALE SQ SCH ×4 (06:17→21:53)
[2017-02-14] MEDS: WARFARIN SOD 4 MG TAB PO SCH (06:17)
[2017-02-14 07:27] LABS: INTERNATIONAL NORMALIZED RATIO 1.1 RATIO; PROTHROMBIN TIME - PATIENT 12.6 SEC (9.8-11.6)
[2017-02-14] MEDS: TORSEMIDE 20 MG TAB PO SCH (09:24)
[2017-02-14] MEDS: METOPROLOL SUCCINATE 25 MG EXTENDED RELEASE TAB PO SCH (09:24)
[2017-02-14] MEDS: LISINOPRIL 5 MG TAB PO SCH (09:24)
[2017-02-14] MEDS: SPIRONOLACTONE 25 MG TAB PO SCH (09:24)
[2017-02-14] MEDS: LEVOFLOXACIN 750 MG TAB PO SCH (09:24)
[2017-02-14] MEDS: FUROSEMIDE 40 MG TAB PO SCH (09:24)
[2017-02-14] MEDS: SODIUM CHLORIDE 0.9% FLUSH 10 ML FLUSH IV FLUSH SCH ×2 (09:25→20:53)
[2017-02-14] MEDS: DOCUSATE SODIUM 50 MG/SENNA 8.6 MG TAB PO SCH ×2 (09:25→20:52)
[2017-02-14] MEDS: ASPIRIN EC 81 MG TABEC PO SCH (09:25)
[2017-02-14] MEDS: ACETAMINOPHEN/HYDROcodone 325 MG/10 MG TAB PO PRN ×2 (09:33→18:28)
[2017-02-14] MEDS: ENOXAPARIN SODIUM 80 MG/0.8 ML SYRINGE SQ SCH ×2 (10:00→20:52)
[2017-02-14] MEDS ORDERED: ENOX80P SQ (10:10)
[2017-02-14] MEDS ORDERED: WARFARIN SOD 2 MG TAB PO ONE (16:00)
[2017-02-14] MEDS ORDERED: WARFARIN SOD 6 MG TAB PO ONE (16:00)
[2017-02-14] MEDS ORDERED: WARFARIN SOD 10 MG TAB PO SCH (16:00)
[2017-02-14] MEDS: clonazePAM 1 MG TAB PO PRN (18:28)
--- NOTE | 2017-02-14 23:22 | HHI.PR ---
Subjective Remarks Patient seen this morning. Says he feels all right. Denies any chest pain. Reports shortness of breath improved. Still does not feel comfortable going home. Objective Vital Signs Date Time Temp Pulse Resp B/P Pulse Ox O2 Delivery O2 Flow Rate FiO2 02/14/17 20:00 98.9 88 20 112/65 93 02/14/17 16:00 98.6 86 16 104/65 96 02/14/17 12:00 97.5 83 16 111/62 96 02/14/17 10:40 20 02/14/17 08:00 Room Air 02/14/17 08:00 97.6 76 16 106/61 95 02/14/17 07:59 72 02/14/17 04:00 97.5 70 16 90/54 96 02/14/17 04:00 Room Air 02/14/17 00:00 97.2 80 18 94/56 98 02/14/17 00:00 Room Air I/O 02/13/17 02/13/17 02/13/17 02/14/17 02/14/17 02/14/17 07:00 15:00 23:00 07:00 15:00 23:00 Intake Total 570 ml 960 ml 360 ml 200 ml 1200 ml 600 ml Output Total 600 ml 1200 ml 450 ml 600 ml 2375 ml 1000 ml Balance -30 ml -240 ml -90 ml -400 ml -1175 ml -400 ml Intake Oral 570 ml 960 ml 360 ml 200 ml 1200 ml 600 ml Output Urine Total 600 ml 1200 ml 450 ml 600 ml 2375 ml 1000 ml # Bowel Movements 0 1 0 0 1 0 Result Diagram: 02/13/1757 02/13/17856 Objective Remarks .GENERAL: patient sitting up in bed. Appears comfortable.appears to be breathing comfortably.1. No appreciable change from yesterday. SKIN: Warm and dry. HEAD: Normocephalic. EYES: No scleral icterus. No injection or drainage. NECK: Supple, trachea midline. No JVD CARDIOVASCULAR: Regular rate and rhythm without murmurs, gallops, or rubs. RESPIRATORY: Breath sounds equal bilaterally. No accessory muscle use. GASTROINTESTINAL: Abdomen soft, non-tender, nondistended. MUSCULOSKELETAL: No cyanosis, or edema. BACK: Nontender without obvious deformity. No CVA tenderness. A/P Assessment and Plan 02/14/17 Stable for discharge to SNF. Discussed with case management specialist. Not be able to get approval until Thursday. Continue to work with physical therapy. Continue antibiotics. 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 //Acute Exacerbation of Chronic Systolic CHF: Recent echo 11/01/16 with EF 15%. S /p cardiac cath 11/24/16 consistent with nonischemic cardiomyopathy EF 15%. BNP elevated at 987. CXR images reviewed, shows congestive failure. -Continue diuresis with torsemide 20mg daily -Monitor Is&Os -fluid restrictions to 1500ml daily -continue patient's BB, ACEi -cardiology following. Appreciate assistance. //Possible respiratory infection With cough production of yellow sputum over the past 2 days Start Levaquin. //Chest Pain: atypical, constant, likely secondary to above. Doubt recurrent PE while on Coumadin with therapeutic INR. -initial troponin negative however EKG with new Twave inversions -continue to trend serial cardiac enzymes and EKGs -continue BB, ACEi, aspirin -nitro prn -monitor on telemetry -cardiology consulted. Appreciate assistance. //Hx of Pulmonary Embolism: on Coumadin, INR therapeutic at 2.0 -continue Coumadin -monitor INR //Diabetes Mellitus: chronic, last HgbA1c 8.6 -check A1c -hold patient's metformin for now -Continue to Monitor accu-checks and cover with SSI //All other medical conditions stable, continue home medications as appropriate. //DVT Prophylaxis: On Coumadin Discharge Planning discharge to SNF. Sadiq Restrepo MD Feb 14, 2017 23:21
[2017-02-15] VITALS (9 sets, daily range): BP systolic 92–107; BP diastolic 51–62; PULSE 67–86; RESP 16–18; TEMP 97–98.4; O2SAT 93–99
[2017-02-15] MEDS: clonazePAM 1 MG TAB PO PRN ×2 (06:31→20:04)
[2017-02-15] MEDS: ACETAMINOPHEN/HYDROcodone 325 MG/10 MG TAB PO PRN ×2 (06:31→15:35)
[2017-02-15] MEDS: INSULIN ASPART SUPPLEMENTAL SCALE SQ SCH ×4 (06:32→19:58)
[2017-02-15] MEDS: LISINOPRIL 5 MG TAB PO SCH (09:55)
[2017-02-15] MEDS: LEVOFLOXACIN 750 MG TAB PO SCH (09:55)
[2017-02-15] MEDS: TORSEMIDE 20 MG TAB PO SCH (09:55)
[2017-02-15] MEDS: METOPROLOL SUCCINATE 25 MG EXTENDED RELEASE TAB PO SCH (09:55)
[2017-02-15] MEDS: SPIRONOLACTONE 25 MG TAB PO SCH (09:55)
[2017-02-15] MEDS: ASPIRIN EC 81 MG TABEC PO SCH (09:55)
[2017-02-15] MEDS: DOCUSATE SODIUM 50 MG/SENNA 8.6 MG TAB PO SCH ×2 (09:55→19:56)
[2017-02-15] MEDS: ENOXAPARIN SODIUM 80 MG/0.8 ML SYRINGE SQ SCH ×2 (09:56→19:56)
[2017-02-15] MEDS: SODIUM CHLORIDE 0.9% FLUSH 10 ML FLUSH IV FLUSH SCH ×2 (09:56→19:55)
[2017-02-15] MEDS: FUROSEMIDE 40 MG TAB PO SCH (09:56)
[2017-02-15 10:06] LABS: INTERNATIONAL NORMALIZED RATIO 1.3 RATIO; PROTHROMBIN TIME - PATIENT 14.5 SEC (9.8-11.6)
[2017-02-15 15:45] LABS: AUTOMATED NEUTROPHIL # 3.6 TH/MM3 (1.8-7.7); BASOPHIL % 0.5 % (0.0-2.0); EOSINOPHIL # 0.2 TH/MM3 (0-0.4); EOSINOPHIL % 3.2 % (0.0-4.0); HEMATOCRIT 44.5 % (39.0-51.0); HEMO FLAGS DIFF FINAL; LYMPH % 20.4 % (9.0-44.0); LYMPHOCYTE # 1.1 TH/MM3 (1.0-4.8); MEAN CELL VOLUME 88.6 FL (80.0-100.0); MEAN CORPUSCULAR HEMOGLOBIN 29.4 PG (27.0-34.0); MEAN CORPUSCULAR HGB CONC 33.1 % (32.0-36.0); MONO % 8.4 % (0.0-8.0); NEUT % 67.5 % (16.0-70.0); PLATELET COUNT 287 TH/MM3 (150-450); RED BLOOD COUNT 5.02 MIL/MM3 (4.50-5.90); WHITE BLOOD COUNT 5.3 TH/MM3 (4.0-11.0)
[2017-02-15] MEDS ORDERED: WARFARIN SOD 6 MG TAB PO SCH (16:00)
[2017-02-15] MEDS ORDERED: WARFARIN SOD 10 MG TAB PO SCH (16:00)
[2017-02-15 16:10] LABS: BICARBONATE 32.8 MEQ/L (21.0-32.0); POTASSIUM 4.3 MEQ/L (3.5-5.1)
--- NOTE | 2017-02-15 18:57 | HHI.PR ---
Subjective Remarks Patient seen today around noon. Says he is feeling all right. Walking around with little difficulty. Objective Vital Signs Date Time Temp Pulse Resp B/P Pulse Ox O2 Delivery O2 Flow Rate FiO2 02/15/17 16:35 20 02/15/17 16:00 98.4 86 16 97/60 94 02/15/17 12:00 98.1 79 16 106/56 96 02/15/17 08:20 Room Air 02/15/17 08:00 97.8 74 16 107/61 95 02/15/17 05:00 97.0 67 16 104/59 96 02/15/17 05:00 Room Air 02/15/17 00:00 Room Air 02/15/17 00:00 97.6 79 18 92/52 93 02/14/17 20:00 89 02/14/17 20:00 Room Air 02/14/17 20:00 98.9 88 20 112/65 93 I/O 02/14/17 02/14/17 02/14/17 02/15/17 02/15/17 02/15/17 07:00 15:00 23:00 07:00 15:00 23:00 Intake Total 200 ml 1200 ml 600 ml 520 ml 1080 ml Output Total 600 ml 2375 ml 1000 ml 425 ml 1300 ml Balance -400 ml -1175 ml -400 ml 95 ml -220 ml Intake Oral 200 ml 1200 ml 600 ml 520 ml 1080 ml Output Urine Total 600 ml 2375 ml 1000 ml 425 ml 1300 ml # Bowel Movements 0 1 0 0 0 Result Diagram: 02/15/17 1450 02/15/17 1450 Objective Remarks .GENERAL: patient sitting up in bed. Appears comfortable.appears to be breathing comfortably.again, no appreciable change on exam. SKIN: Warm and dry. HEAD: Normocephalic. EYES: No scleral icterus. No injection or drainage. NECK: Supple, trachea midline. No JVD CARDIOVASCULAR: Regular rate and rhythm without murmurs, gallops, or rubs. RESPIRATORY: Breath sounds equal bilaterally. No accessory muscle use. GASTROINTESTINAL: Abdomen soft, non-tender, nondistended. MUSCULOSKELETAL: No cyanosis, or edema. BACK: Nontender without obvious deformity. No CVA tenderness. A/P Assessment and Plan 8/13/17 Patient continues stable for SNF. 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 //Acute Exacerbation of Chronic Systolic CHF: Recent echo 11/01/16 with EF 15%. S /p cardiac cath 11/24/16 consistent with nonischemic cardiomyopathy EF 15%. BNP elevated at 987. CXR images reviewed, shows congestive failure. -Continue diuresis with torsemide 20mg daily -Monitor Is&Os -fluid restrictions to 1500ml daily -continue patient's BB, ACEi -cardiology following. Appreciate assistance. //Possible respiratory infection With cough production of yellow sputum over the past 2 days Start Levaquin. //Chest Pain: atypical, constant, likely secondary to above. Doubt recurrent PE while on Coumadin with therapeutic INR. -initial troponin negative however EKG with new Twave inversions -continue to trend serial cardiac enzymes and EKGs -continue BB, ACEi, aspirin -nitro prn -monitor on telemetry -cardiology consulted. Appreciate assistance. //Hx of Pulmonary Embolism: on Coumadin, INR therapeutic at 2.0 -continue Coumadin -monitor INR //Diabetes Mellitus: chronic, last HgbA1c 8.6 -check A1c -hold patient's metformin for now -Continue to Monitor accu-checks and cover with SSI //All other medical conditions stable, continue home medications as appropriate. //DVT Prophylaxis: On Coumadin Discharge Planning discharge to SNF.case management awaiting authorization 02/16. Sadiq Restrepo MD Feb 15, 2017 18:57
[2017-02-15] MEDS ORDERED: SODIUM CHLORID 0.9% 500 ML INJ 500 ML IV ONE (19:15)
[2017-02-16 04:20] VITALS: BP 105/60; PULSE 68; RESP 16; TEMP 97.3; O2SAT 98
[2017-02-16] MEDS: INSULIN ASPART SUPPLEMENTAL SCALE SQ SCH ×2 (05:34→11:00)
[2017-02-16] MEDS: ACETAMINOPHEN/HYDROcodone 325 MG/10 MG TAB PO PRN ×2 (05:39→10:00)
[2017-02-16 08:00] VITALS: BP 119/72; PULSE 86; RESP 20; TEMP 97.4; O2SAT 98
[2017-02-16] MEDS ORDERED: FUROSEMIDE 40 MG TAB PO SCH (09:00)
[2017-02-16] MEDS: SODIUM CHLORIDE 0.9% FLUSH 10 ML FLUSH IV FLUSH SCH (09:56)
[2017-02-16] MEDS: ASPIRIN EC 81 MG TABEC PO SCH (09:57)
[2017-02-16] MEDS: TORSEMIDE 20 MG TAB PO SCH (09:57)
[2017-02-16] MEDS: DOCUSATE SODIUM 50 MG/SENNA 8.6 MG TAB PO SCH (09:57)
[2017-02-16] MEDS: SPIRONOLACTONE 25 MG TAB PO SCH (09:57)
[2017-02-16] MEDS: LEVOFLOXACIN 750 MG TAB PO SCH (09:57)
[2017-02-16] MEDS: LISINOPRIL 5 MG TAB PO SCH (09:57)
[2017-02-16] MEDS: METOPROLOL SUCCINATE 25 MG EXTENDED RELEASE TAB PO SCH (09:58)
[2017-02-16] MEDS: ENOXAPARIN SODIUM 80 MG/0.8 ML SYRINGE SQ SCH (09:59)
[2017-02-16 10:00] LABS: INTERNATIONAL NORMALIZED RATIO 1.5 RATIO; PROTHROMBIN TIME - PATIENT 17.2 SEC (9.8-11.6)
[2017-02-16 12:00] VITALS: BP 124/60; PULSE 84; RESP 20; TEMP 94; O2SAT 96
--- NOTE | 2017-02-16 14:08 | HHI.DS ---
Discharge Summary Admission Date Feb 11, 2017 at 10:26 Discharge Date: Feb 16, 2017 Admitting Diagnosis CHF, chest pain (1) Acute exacerbation of congestive heart failure ICD Code: I50.9 Diagnosis: Principal (2) Non-ischemic cardiomyopathy ICD Code: I42.8 (3) Atypical chest pain ICD Code: R07.89 (4) DM (diabetes mellitus) ICD Code: E11.9 Procedures None. Brief History - From Admission Written by Krystal Arteaga, acting as scribe for Dr. Restrepo on 02/11/17 at 11:55. 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 He states a few days ago he started to notice worsening shortness of breath at rest and much worse with exertion. Denies orthopnea or lower extremity edema however states he doesn't usually have edema with his CHF exacerbations. He states he couldn't even ambulate to the bathroom without becoming very winded. He reports an episode of chest pain around 9pm last night , described as constant dull, deep, located substernally without radiation, worse with any exertion. He reports similar chest pain last time he came to the hospital. He reports compliance with his medications, has not missed any doses, however did run out of his oxygen. He doesn't feel that the oxygen helps him much. He also reports mild rhinitis and occasional dry cough which is chronic for him. Denies any abdominal pain, nausea/vomiting, or diarrhea. He does have occasional constipation. Denies any recent weight gain and actually reports 10lbs weight loss over the past month which he attributes to decreased appetite. He also has lower extremity weakness over the past day, denies numbness/tingling. Denies any recent injury. Denies any other medical complaints at this time. CBC/BMP: 02/15/17 1450 02/15/17 1450 Significant Findings Laboratory Tests Test 02/14/17 02/15/17 02/15/1717 06:08 07:50 14:50 08:27 Prothrombin Time 12.6 SEC 14.5 SEC 17.2 SEC (9.8-11.6) (9.8-11.6) (9.8-11.6) Monocytes (%) (Auto) 8.4 % (0.0-8.0) Chloride Level 96 MEQ/L (98-107) Carbon Dioxide Level 32.8 MEQ/L (21.0-32.0) Blood Urea Nitrogen 34 MG/DL (7-18) Estimat Glomerular Filtration 56 ML/MIN (>89) Rate Random Glucose 158 MG/DL (74-106) Imaging Last Impressions Chest X-Ray 02/11/17 0817 Signed Impressions: Service Date/Time: Saturday, February 11, 2017 09:04 - CONCLUSION: Congestive failure, improved from comparison. Larry Sharma MD FACR PE at Discharge GENERAL: AOX3, NAD. SKIN: Warm and dry. HEAD: Normocephalic. EYES: No scleral icterus. No injection or drainage. NECK: Supple, trachea midline. No JVD or lymphadenopathy. CARDIOVASCULAR: Regular rate and rhythm without murmurs, gallops, or rubs. RESPIRATORY: Breath sounds equal bilaterally. No accessory muscle use. GASTROINTESTINAL: Abdomen soft, non-tender, nondistended. MUSCULOSKELETAL: No cyanosis, or edema. BACK: Nontender without obvious deformity. No CVA tenderness. Pt update on day of discharge Mr. Lucio is doing well. No acute concerns. He is ambulating well. No fever, chills. No bleeding. 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 //Acute Exacerbation of Chronic Systolic CHF: Recent echo 11/01/16 with EF 15%. S /p cardiac cath 11/24/16 consistent with nonischemic cardiomyopathy EF 15%. BNP elevated at 987. CXR images reviewed, shows congestive failure. -Continue diuresis with torsemide 20mg daily -Monitor Is&Os -fluid restrictions -continue patient's BB, ACEi -cardiology follow up in the outpatient setting. Patient was followed by cardiology during this hospitalization as well. //Possible respiratory infection With cough production of yellow sputum over the past 2 days continue Levaquin. //Chest Pain: atypical, constant, likely secondary to above. Doubt recurrent PE while on Coumadin with therapeutic INR. -initial troponin negative however EKG with new Twave inversions -continue to trend serial cardiac enzymes and EKGs -continue BB, ACEi, aspirin -nitro prn -monitor on telemetry -cardiology consulted. Appreciate assistance. //Hx of Pulmonary Embolism: on Coumadin, INR 1.5. - History of Anti-cardiolipin antibody. -continue Coumadin -Bridging was initiated in the hospital with Lovenox. Continue Lovenox until INR is 2.0 on two daily morning reading (INR should be therapeutic for 24 hours) . -Increase Warfarin per SNF pharmacists/physician. -Will refer patient to heme/onc for re-evaluation of any further need for anti-coagulation. //Diabetes Mellitus: chronic, last HgbA1c 8.6 -check A1c -Sliding scale insulin and will add long acting insulin. Titrate as needed. //All other medical conditions stable, continue home medications as appropriate. //DVT Prophylaxis: On Coumadin Pt Condition on Discharge: Good Discharge Disposition: Discharge to SNF Discharge Time: > 30 minutes Discharge Instructions DIET: Follow Instructions for: Heart Healthy Diet, Diabetic Diet Fluid Restrictions: 1800ml Activities you can perform: Regular-No Restrictions Follow up Referrals: Cardiology - 1 Week with Shelby Turner MD Oncology - 2 Weeks SNF/[facility]/ with [facility] New Orders: PT/INR - 2-3 Days New Medications: Insulin Detemir Inj (Levemir Inj) 1,000 unit/ 10 ML Vial 5 UNITS SQ HS Do not mix with any other Insulin. Blood Sugar Management #30 Ref 0 VIAL Enoxaparin Inj (Lovenox Inj) 80 mg/0.8 ML Syr 70 MG SQ Q12HR stop when INR therapeutic bridging Days 30 INJECTION Insulin Aspart Inj (Novolog Inj) 100 Unit/Ml Inj 1 INJECTION SQ ACHS SLIDING SCALE diabetes Days 30 INJECTION Levofloxacin (Levaquin) 750 Mg Tablet 750 MG PO DAILY Infection Days 6 TAB Continued Medications: Aspirin DR (Aspirin 81) 81 Mg Tabdr 81 MG PO DAILY Ref 0 TAB Clonazepam (Klonopin) 1 Mg Tab 1 MG PO Q8HR PRN MODERATE TO SEVERE ANXIETY #30 TAB Hydrocodone-Acetaminophen ([place]) 10-325 Mg Tab 1 TAB PO Q8HR PRN PAIN #20 Ref 0 TAB (This prescription has been renewed) Lisinopril (Lisinopril) 5 Mg Tab 5 MG PO DAILY CHF #30 TAB Metoprolol Succinate ER 24 HR (Metoprolol Succinate ER 24 HR) 25 Mg Tab 37.5 MG PO DAILY CHF #7 TAB Spironolactone (Aldactone) 25 Mg Tab 25 MG PO DAILY CHF #7 TAB Torsemide (Torsemide) 20 Mg Tab 20 MG PO DAILY Heart failure #7 Ref 0 TAB Warfarin (Warfarin) 4 Mg Tab 4 MG PO DAILY Blood Clot Prevention #7 Ref 0 TAB Discontinued Medications: Metformin (Metformin) 500 Mg Tab 500 MG PO DAILY With a meal Blood Sugar Management #30 Ref 0 TAB Jeferson Crane DO Feb 16, 2017 14:08
[2017-02-16] MEDS ORDERED: LEVEMIR SQ (14:10)
== END 2017-02-16 16:44 | DRG 293 ==
LOC: NEPC 07:58 → NEDH 10:26 → N04A 19:16
PROVIDERS: ADMIT Hospitalist; ATTEND Hospitalist
DX: I11.0 Hypertensive heart disease with heart failure (principal); I42.9 Cardiomyopathy, unspecified; J44.9 Chronic obstructive pulmonary disease, unspecified; I50.23 Acute on chronic systolic (congestive) heart failure; E11.9 Type 2 diabetes mellitus without complications; E78.00 Pure hypercholesterolemia, unspecified; I25.10 Atherosclerotic heart disease of native coronary artery without angina pectoris; K59.00 Constipation, unspecified; J31.0 Chronic rhinitis; Z59.0 Homelessness; R07.89 Other chest pain; Z66 Do not resuscitate; Z79.01 Long term (current) use of anticoagulants; Z86.711 Personal history of pulmonary embolism; Z86.73 Personal history of transient ischemic attack (TIA), and cerebral infarction without residual deficits; Z87.891 Personal history of nicotine dependence; F41.8 Other specified anxiety disorders; Z82.49 Family history of ischemic heart disease and other diseases of the circulatory system
CPT/HCPCS: 71010; 76937; 80048; 80053; 80069; 80307; 82550; 82948; 83036; 83735; 83880; 84484; 85025; 85610; 85730; 87641; 93005; 96374; J1650; J1815; J1940; J7040

== ENCOUNTER 2017-03-12 08:55 | Day surgery (SDC) | payer MEDICARE ==
[2017-03-12] VITALS (8 sets, daily range): BP systolic 108–116; BP diastolic 58–69; PULSE 65–90; RESP 16–18; TEMP 97.5–97.9; O2SAT 95–96
[~2017-03-12] VITALS: Ht 182.9 cm; Wt 77.5 kg
[~2017-03-12 08:55] MED LIST changes: -ASPI-99 PO; +LEVA750T9 PO; +LEVEMIR SQ; -METF500 PO; -METF500T PO; +NOVOLOGSS SQ; -POTA20TA5 PO
[2017-03-12 09:50] LABS: AUTOMATED NEUTROPHIL # 8.6 TH/MM3 (1.8-7.7); BASOPHIL % 0.2 % (0.0-2.0); EOSINOPHIL # 0.1 TH/MM3 (0-0.4); EOSINOPHIL % 1.2 % (0.0-4.0); HEMATOCRIT 36.6 % (39.0-51.0); HEMO FLAGS DIFF FINAL; LYMPH % 8.3 % (9.0-44.0); LYMPHOCYTE # 0.9 TH/MM3 (1.0-4.8); MEAN CELL VOLUME 89.3 FL (80.0-100.0); MEAN CORPUSCULAR HEMOGLOBIN 29.4 PG (27.0-34.0); MONO % 8.2 % (0.0-8.0); NEUT % 82.1 % (16.0-70.0); PLATELET COUNT 196 TH/MM3 (150-450); RED BLOOD COUNT 4.11 MIL/MM3 (4.50-5.90); RED CELL DISTRIBUTION WIDTH 16.4 % (11.6-17.2); WHITE BLOOD COUNT 10.5 TH/MM3 (4.0-11.0)
[2017-03-12] MEDS ORDERED: ENOX100P SQ (09:51)
[2017-03-12] MEDS ORDERED: METF500T PO (09:51)
[2017-03-12] MEDS ORDERED: WARF-60 PO (09:51)
[2017-03-12] MEDS ORDERED: METO25TA6 PO (09:51)
[2017-03-12] MEDS ORDERED: CARV3.12 PO (09:51)
[2017-03-12 10:00] LABS: APTT (PATIENT) 36.8 SEC (24.3-30.1); INTERNATIONAL NORMALIZED RATIO 1.7 RATIO; PROTHROMBIN TIME - PATIENT 19.3 SEC (9.8-11.6)
[2017-03-12] MEDS ORDERED: INSULIN HUMAN REGULAR 1,000 UNITS/10 ML VIAL SQ PRN (10:00)
[2017-03-12] MEDS ORDERED: METOPROLOL TARTRATE 25 MG TAB PO PRN (10:00)
[2017-03-12] MEDS ORDERED: LORazepam 1 MG TAB SL SCH (10:00)
[2017-03-12] MEDS ORDERED: LACTATED RINGER'S 1000 ML IV PRN (10:00)
[2017-03-12] MEDS: NS 1000 ML IV SCH (10:00)
[2017-03-12] MEDS ORDERED: VANCOMYCIN 1000 MG/NS 250 ML IV SCH ×2 (10:00)
[2017-03-12] MEDS ORDERED: CHLORHEXIDINE GLUCONATE 2 % 1 PACK (2 CLOTHS) TOPICAL PRN (10:00)
[2017-03-12] MEDS ORDERED: POVIDONE IODINE 5% (ANTISEPSIS KIT) 4 APPLICATIONS EACH NARE SCH (10:00)
[2017-03-12] MEDS ORDERED: POVIDONE IODINE 5% (ANTISEPSIS KIT) 4 APPLICATIONS EACH NARE PRN (10:00)
[2017-03-12] MEDS ORDERED: CHLORHEXIDINE GLUCONATE 2 % 1 PACK (2 CLOTHS) TOPICAL SCH (10:00)
[2017-03-12] MEDS ORDERED: SODIUM CHLORID 0.9% 500 ML IV PRN (10:00)
[2017-03-12] MEDS ORDERED: MUPIROCIN 2% OINT 1 APPLIC/GM SYR NASAL SCH (10:00)
[2017-03-12] MEDS ORDERED: ceFAZolin 2 GM PREMIX 50 ML IV SCH (10:00)
[2017-03-12 10:25] LABS: BICARBONATE 26.4 MEQ/L (21.0-32.0); POTASSIUM 4.4 MEQ/L (3.5-5.1)
[2017-03-12] MEDS ORDERED: LIDOCAINE HCL 2% 50 ML VIAL ONE (11:31)
[2017-03-12] MEDS ORDERED: VANCOMYCIN 500 MG VIAL ONE (11:31)
[2017-03-12] MEDS ORDERED: KETAMINE HCL 500 MG/5 ML VIAL ONE (11:38)
[2017-03-12] MEDS ORDERED: ISOPROTERENOL HCL 1 MG/5 ML AMP ONE (11:39)
--- NOTE | 2017-03-12 12:36 | CATHPROC ---
[employer] HIS Report Study Information Study Number Admission Scheduled Start Study Start [id number] Mar 12 2017 8:55AM 03/12/2017 Mar 12 2017 10:31AM [place] [facility] Cardiac Pacer/ICD Admit Source Facility Department Other [facility] - [facility] Physician and Clinical Staff Initial Shelby Madrid Household Assistant Angela Young,COSMETICS PRESSER Other Anesthesia, PROGRAM ASSOCIATE Recorder Stacy Patiño,BSRN Recorder Lyn Nielsen,NOREEN Scrub Tara Tenorio,RT(R) TECH2 Equipment Time Electronic Maintenance Supervisor Description Size Mfg Part Number Used/Scraped [id number] 10:36 Doorman INDUSTRIES PACK, CCL CUSTOM * Used *[id number] 10:36 Doorman PACER PECK, LIMB * 2530 *[id number] Used [id number] 10:36 Tandem Transit BLANKET,WARM AIR CCL * Used *[id number] 10:38 [employer]. [employer] MEDICAL CATHETER, JSN, QUAD FR 5 Used *[id number] 10:38 [employer]. [employer] MEDICAL CATHETER, JSN, QUAD FR 5 Used *[id number] 10:38 [employer] MEDICAL CATHETER, JSN, QUAD FR 5 Used *[id number] 082710 10:38 ST. [employer] MEDICAL CATHETER, JSN, QUAD FR 5 Used *[id number] 10:37 ST. DES MEDICAL SHEATH, EPS, FR5 FAST CATH FR 5 Used *[id number] 139736 10:37 ST. DES MEDICAL SHEATH, EPS, FR5 FAST CATH FR 5 Used *[id number] 10:37 ST. DES MEDICAL SHEATH, EPS, FR5 FAST CATH FR 5 Used *[id number] [id number] 10:37 ST. DES MEDICAL SHEATH, EPS, FR6 FAST CATH FR 6 Used *[id number] 10:37 ST. DES MEDICAL SHEATH, EPS, FR8 FAST CATH FR 8 Used *[id number] History: Current Medications Medication Dosage/Unit Route Frequency Last Date/Time Taken LISINOPRIL Beta Bony Coumadin History: Allergies Allergy Reaction Morphine History: Risk Factors Hypertension Dyslipidemia Previous Heart Failure Yes Yes Yes Cerebrovascular Diabetes Diabetes Therapy Disease Labs Hgb (g/dl) Hct (%) RBC (MIL/MM3) WBC (l/cumm) Platelets (thousands) 11.60-17.00 35.00-51.00 4.00-5.90 4.00-11.00 150.00-450.00 12.0 36 4.1 10.5 196 Glucose (mg/dl) BUN (mg/dl) Creatinine (mg/dl) BUN:Creatinine (1:x) 74.00-106.00 7.00-18.00 0.50-1.30 10.00-20.00 165 21 1.2 17.5 Na (meq/l) K (meq/l) 136.00-145.00 3.50-5.10 136 4.4 INR (PTT:PT) 0.90-1.10 1.7 Medication Medication Total Dose (Bolus/Oral) Medication Total Dosage/Unit 1% XYLOCAINE 40 mL Medications (Bolus/Oral) Medication Time Given Dosage/Unit Administered By Reason 1% XYLOCAINE 03/12/2017 12:08:43 PM 20 mL Shelby Turner For pain 20 mL 1% XYLOCAINE given in lab by Shelby Turner in Left Groin via Subcutaneous. Ordered by Parth Turner. Reason: For pain. 1% XYLOCAINE 03/12/2017 12:10:14 PM 20 mL Shelby Turner For pain 20 mL 1% XYLOCAINE given in lab by Shelby Turner in Right Groin via Subcutaneous. Ordered by Devyn Turner. Reason: For pain. Medication (Drip) Medication Time Given Dosage/Unit Concentration/Unit Diluent (ml) Solution ANCEF 03/12/2017 11:27:06 AM 2 g 2 g ANCEF given in lab by Lyn Nielsen RN in Right Wrist via Peripheral IV. Ordered by Parth Turner. Reason: As per physicians verbal order. ISUPREL 03/12/2017 12:22:29 PM 4 mcg/min 1 mg 250 NaCl .9 4 mcg/min ISUPREL given in lab by Shelby Turner in Right Wrist via Peripheral IV. Pump/Drip Flow = 60 ml/hr using NaCl .9 with a concentration of 1 mg in 250 ml. Ordered by Shelby Turner. IV Solutions 03/12/2017 11:23:40 AM 0 mL (IV) NaCl .9 IV Solutions given in lab by Lyn Nielsen RN in Right Wrist via Peripheral IV. Pump/Drip Flow = 50 ml/hr using NaCl .9. Ordered by Shelby Turner. IV Solutions 03/12/2017 11:24:06 AM 0 mL (IV) NaCl .9 IV Solutions given in lab by Lyn Nielsen RN in Left Antecubital via Peripheral IV. Pump/Drip Fl ow = 50 ml/hr using NaCl .9. Ordered by Shelby Turner. VANCOMYCIN DRIP 03/12/2017 11:27:27 AM 1 g 1 g VANCOMYCIN DRIP given in lab by Lyn Nielsen RN in Right Wrist via Peripheral IV. Ordered by Shelyb Turner. Reason: As per physicians verbal order. Initial Case Assessment Cardiovascular HR Chest Pain 71 0 Edema Present Skin color Skin None Normal Warm Dry Neurological State Oriented to time-place- Alert Moves all extremities person Respiration - General Respiration Rate SpO2 (%) (B/min) 18 97 Chronological Log Time Study Chronological Log 11:10:11 Patient arrived via Bed. 11:10:13 Patient Name, D.O.B, / Armband Verified By R.N. 11:10:14 Consent signed by the physician and the patient and verified by the [facility] staff. 11:10:15 Pre-op and post- op instructions given; patient acknowledges understanding of instruction s. 11:21:53 Verbal Stimulation=2 Physical Stimulation=2 Airway=2 Respiration=2 TOTAL=10. (0=absent, 1 =limited, 2=present) 11:22:17 Presedation assessment performed by [facility] RN. 11:22:21 Immediate Presedation assesment performed by physician. 11:22:24 Patient has been NPO for More than 6Hrs. 11:22:47 Skin Breakdown- bruise noted right groin 11:22:57 Patient Warmer Placed on the Table. 11:23:01 Disposable Defibrillator Pads Placed On Patient. 11:23:05 Samia Prominences Protected 11:23:10 A # 20 IV was noted in the Wrist (right). Grade = ~GRADE~ 11:23:22 A # 20 IV was noted in the Antecubital (left). Grade = ~GRADE~ 11:23:36 Reference ECG taken IV Solutions given in lab by Lyn Nielsen, NOREEN in Right Wrist via Peripheral IV. Pump/Drip F low = 50 ml/hr using 11:23:40 NaCl .9. Ordered by Shelby Turner. IV Solutions given in lab by Lyn Nielsen RN in Left Antecubital via Peripheral IV. Pump/D rip Flow = 50 ml/hr 11:: using NaCl .9. Ordered by Shelby Turner. 11:: History and physical on the chart or being dictated. Assessment: Initial Case, HR=71 BPM, Chest Pain=0, Edema=None, Color=Normal, Skin = Warm, Dry : Neurological: State=Alert, Ox3, ROJO Respiration: Resp=18 B/min, SpO2=97 % 11:25: Table restraints applied according to hospital policy 11::18 Right groin prepped with 2% chlorhexidine, and with a 3 min. waiting time. :: Left groin prepped with 2% chlorhexidine, and with a 3 min. waiting time. 2 g ANCEF given in lab by Lyn Nielsen RN in Right Wrist via Peripheral IV. Ordered by Shelby Portillo. Reason: As 11::06 per physicians verbal order. 1 g VANCOMYCIN DRIP given in lab by Lyn Nielsen RN in Right Wrist via Peripheral IV. Orde red by Johnny Shelby. Reason: As per physicians verbal order. 11:30:00 Anesthesia at bedside. Assumes care of patient. Ghada VELÁSQUEZ 11:41:54 MD responded. 11:42:00 MD notified ready. Time Out. Correct patient, procedure, procedure equipment, site and side verified with physicia n present. Time 12:08:29 concurred by MD, individual staff and PROGRAM ASSOCIATE. Time Out #2 - Consents verified, patient in correct position, all results are labled and displa yed, safety precautions 12:08:32 taken, antibiotics administered. Time out concurred by MD, individual staff and PROGRAM ASSOCIATE in procedu re 12:08:37 Case Start 20 mL 1% XYLOCAINE given in lab by Shelby Turner in Left Groin via Subcutaneous. Ordered by Shelby Portillo. 12:08:43 Reason: For pain. 12:09:23 Vascular access was obtained in the Fem Vein (left). 12:09:28 Vascular access was obtained in the Fem Vein (left). 12:09:28 Vascular access was obtained in the Fem Vein (left). 12:09:29 Vascular access was obtained in the Fem Vein (left). 12:09:35 A SHEATH, EPS, FR5 FAST CATH FR 5 was advanced into the Fem Vein (left) using the Percutane ous technique. 12::44 A SHEATH, EPS, FR5 FAST CATH FR 5 was advanced into the Fem Vein (left) using the Percutane ous technique. 12::45 A SHEATH, EPS, FR5 FAST CATH FR 5 was advanced into the Fem Vein (left) using the Percutane ous technique. 12:09:45 A SHEATH, EPS, FR5 FAST CATH FR 5 was advanced into the Fem Vein (left) using the Percutane ous technique. 20 mL 1% XYLOCAINE given in lab by Shelby Turner in Right Groin via Subcutaneous. Ordered by Shelby Bennett. 12:10:14 Reason: For pain. A CATHETER, JSN, QUAD FR 5 was advanced vis Fem Vein (left) and placed in the HIS. Placement wa s visually 12:11:24 confirmed under fluoroscopy. A CATHETER, JSN, QUAD FR 5 was advanced vis Fem Vein (left) and placed in the HRA. Placement wa s visually 12:11:45 confirmed under fluoroscopy. A CATHETER, JSN, QUAD FR 5 was advanced vis Fem Vein (left) and placed in the RVA. Placement wa s visually 12:12:11 confirmed under fluoroscopy. A CATHETER, JSN, QUAD FR 5 was advanced vis Fem Vein (left) and placed in the CS. Placement was visually 12:13:45 confirmed under fluoroscopy. 12:14:22 EP study begun. 4 mcg/min ISUPREL given in lab by Shelby Turner in Right Wrist via Peripheral IV. Pump/Drip Pop w = 60 ml/hr using 12:22:29 NaCl .9 with a concentration of 1 mg in 250 ml. Ordered by Shelby Turner. 12:30:00 Isuprel gtt dc'd 12:32:00 EP study completed. 12:32:58 NOTE: This patient is undergoing an additional procedure while still in the Cardiac Cath L ab. 12:34:35 Case End End Study - Contrast Media Used In Study Contrast Total Opened (mL) Total Used (mL) Total Wasted (mL) Unspecified 0 0 0 End Study - Maximum Contrast Load Max Contrast Load (mL) 324.2 End Study - Radiation Exposure Fluoro Time (minutes) 0.9 End Study - Patient Disposition Complications Transferred To Interventional Outcome No Telemetry Bed successful
--- NOTE | 2017-03-12 12:42 | EKG ---
Date Performed: 03/12/2017 Time Performed: 09:47:10 PTAGE: 71 years EKG: Sinus rhythm . Left anterior fascicular block Extensive ST-T changes may be due to myocardial ischemia Abnormal EC G PREVIOUS TRACING : 02/11/2017 15.24 DOCTOR: Juarez Ragland Interpretating Date/Time 03/12/2017 12:40:20
--- NOTE | 2017-03-12 13:29 | CATHPROC ---
[employer] HIS Report Study Information Study Number Admission Scheduled Start Study Start [id number] Mar 12 2017 8:55AM 03/12/2017 Mar 12 2017 12:36PM [place] [facility] Electrophysiology Study Admit Source Facility Department Other [facility] - [facility] Physician and Clinical Staff Initial Shelby Madrid Budget Record Clerk Luis Alberto Treadwell,RT(R) Budget Record Clerk Angela Young,SIZER MACHINE Other Anesthesia, PAINT STRIPPER Other yLn Nielsen,NOREEN Recorder Stacy Patiño,OSVALDORN Scrub Tara Tenorio,RT(R) TECH2 Procedures Performed Procedure Lead Insertion Equipment Time Big Data Hadoop Developer Description Size Mfg Part Number Used/Scraped [employer]/ EP DEFIBRILLATOR, DYNAGEN MINI 13:12 D020 Used PACER ICD VR [employer]/ EP LEAD, ENDOTAK RELIANCE G 13:10 64CM 0296 Used PACER 64CM (DEFIB) DERMABOND, ADHESIVE SKIN [id number] 12:40 CORDIS/PACER * Used GLUE MINI *[id number] TP-1103 12:40 MEDLINE INDUSTRIES SUTURE, STRIP PLUS 1/2" * Used *[id number] 12:40 MEDLINE PACER PECK, LIMB * 2530 *[id number] Used [id number] 12:40 MEDLINE PACER PACK, PACER CUSTOM * Used *[id number] 12:49 [employer] PACER SAFE SHEATH, FR9, 13CM FR 9 [id number] Used 12:54 Needle Sponge Count 2 22 Used 12:54 Needle Sponge Count 20 200 Used 13:23 Needle Sponge Count 20 200 Used 12:53 Needle Sponge Count 3 3 Used 13:18 Needle Sponge Count 3 3 Used 13:23 Needle Sponge Count 3 3 Used SUTURE, 0 ETHIBOND [CT1] (CX21D), 8pk SUTURE, 2-0 VICRYL [CT1] ([id number]) SUTURE, 2-0 VICRYL [CT1] ([id number]) [id number] 12:40 [employer]ITAKER [employer] BLANKET,WARM AIR CCL * Used *[id number] [facility] PAD, ELECTROSURGICAL 12:40 * [id number] *[id number] Used SURGICAL GROUNDING ORANGE [id number] 12:40 ZOLL [employer] JASEN. ELECTRODE, PRO-PADZ BIPHASIC * Used *[id number] Equipment Model, Serial, Lot Number and Expiration Data Description Model Number Serial Number Lot Number Expiration Date DEFIBRILLATOR, DYNAGEN MINI D020 [id number] 10-06-2018 ICD VR LEAD, ENDOTAK RELIANCE G 64CM 0296 64cm [id number] 11-24-2018 (DEFIB) History: Current Medications Medication Dosage/Unit Route Frequency Last Date/Time Taken LISINOPRIL Beta Bony Coumadin History: Allergies Allergy Reaction Morphine History: Risk Factors Hypertension Dyslipidemia Previous Heart Failure Yes Yes Yes Cerebrovascular Diabetes Diabetes Therapy Disease Labs Hgb (g/dl) Hct (%) RBC (MIL/MM3) WBC (l/cumm) Platelets (thousands) 11.60-17.00 35.00-51.00 4.00-5.90 4.00-11.00 150.00-450.00 12.0 36 4.1 10.5 196 Glucose (mg/dl) BUN (mg/dl) Creatinine (mg/dl) BUN:Creatinine (1:x) 74.00-106.00 7.00-18.00 0.50-1.30 10.00-20.00 165 21 1.2 17.5 Na (meq/l) K (meq/l) 136.00-145.00 3.50-5.10 136 4.4 INR (PTT:PT) 0.90-1.10 1.7 Medication Medication Total Dose (Bolus/Oral) Medication Total Dosage/Unit 2% XYLOCAINE 50 mL Medications (Bolus/Oral) Medication Time Given Dosage/Unit Administered By Reason 2% XYLOCAINE 03/12/2017 1:03:43 PM 50 mL Shelby Turner As per physicians verbal order 50 mL 2% XYLOCAINE given by Shelby Turner in Left upper chest via Subcutaneous. Final Case Assessment Cardiovascular HR NIBP Chest Pain 77 111/60 0 Edema Present Skin color Skin None Normal Warm Dry Neurological State Oriented to time-place- Alert Moves all extremities person Respiration - General Respiration Rate SpO2 (%) (B/min) 20 99 Chronological Log Time Study Chronological Log 12:40:36 Initial procedure has been completed. Beginning additional procedure. 12:40:40 Anesthesia remains at bedside. Ghada VELÁSQUEZ 12:41:08 Bovie ground pad applied to: right hip 12:41:15 2% CHLORHEXIDINE GLUCONATE WASH AND NASAL SWIPE DONE PRIOR TO PROCEDURE. 12:41:20 Vancomycin 1 gm and Ancef 2 gms IV started at 1127. 12:43:13 Sheaths removed; pressure applied to access sites by Anthony Thorpe. Hemostasis achieved. St erile dressing applied. First Sponge And Instrument Count Done by Luis Alberto Treadwell RT(R). 12:53:11 Hypo's: 3, Sponges: 20, Bovie/scratch: 2 Sutures: 10, Blades: 1, Instruments: 26, Syveck Patches: 0 12:59:02 Reference ECG taken 13:02:40 Immediate Presedation assesment performed by physician. Time Out. Correct patient, procedure, procedure equipment, site and side verified with physicia n present. Time 13:02:44 concurred by MD, individual staff and PAINT STRIPPER. Time Out #2 - Consents verified, patient in correct position, all results are labled and displa yed, safety precautions 13:02:50 taken, antibiotics administered. Time out concurred by MD, individual staff and PAINT STRIPPER in procedu re 13:02:52 Case Start 13:03:43 50 mL 2% XYLOCAINE given by Shelby Turner in Left upper chest via Subcutaneous. 13:05:19 Surgical Incision Made. 13:06:36 Vascular access was obtained in the Subclav. Vein (Lft. 13:06:47 A SAFE SHEATH, FR9, 13CM FR 9 was advanced into the Subclav. Vein (Lft using the Percutaneo us technique. 13:06:59 A pocket was created at the L Upper Chest. 13:11:13 A LEAD, ENDOTAK RELIANCE G 64CM (DEFIB) 64CM was inserted and positioned in the RV. 13:11:21 Lead placement verified under fluoroscopy 13:11:23 The RV lead impedance and threshold being tested. 13:11:25 The RV lead was sutured to the fascia. 13:11:32 Pocket flushed with antibiotic solution Second Sponge And Instrument Count Done by Shelby Turner. 13:17:24 Hypo's: 3, Sponges: 20, Bovie/scratch: 2 Sutures: ~SUTURE~, Blades: 1, Instruments: ~INSTRU~, Syveck Patches: ~SYVECK PATCH~ 13:18:19 The pocket was closed. 13:18:44 Implant Procedure was performed. 13:18:52 A ICD Implant . (Single) 13:19:00 Bedside Report will be given. The Final Sponge And Instrument Count Done by Shelby Turner. 13:22:26 Hypo's: 3, Sponges: 20, Bovie/scratch: 2 Sutures: 10, Blades: 1, Instruments: 26, Syveck Patches: 0 13:23:04 A sling was placed on the affected arm. Assessment: Final Case, HR=77 BPM, NXTZ=255/60 mmhg, Chest Pain=0, Edema=None, Color=Normal, Sk in = Warm, Dry 13:23:11 Neurological: State=Alert, Ox3, ROJO Respiration: Resp=20 B/min, SpO2=99 % 13:24:41 No case complications noted. 13:24:44 Cine recording checked. 13:24:51 Holding Area notified of successful intervention. 13:24:56 Implantable Device card placed in patient's chart. 13:24:59 Defibrillator and ground pads removed. Skin intact. 13:26:52 Case End 13:28:14 Patient moved to [facility] and transported in stable condition to PACU [place] to [facility] End Study - Contrast Media Used In Study Contrast Total Opened (mL) Total Used (mL) Total Wasted (mL) Unspecified 0 0 0 End Study - Maximum Contrast Load Max Contrast Load (mL) 324.2 End Study - Radiation Exposure Fluoro Time (minutes) 2.2 End Study - Patient Disposition Complications Transferred To Interventional Outcome No Telemetry Bed successful
--- NOTE | 2017-03-12 13:34 | PD.CARD ---
SINGLE CHAMBER DEFIB IMPLANT PROCEDURE DATE: Mar 12, 2017 NYHA Classification: Class II (Mild) Prevention: Primary Single Chamber Defib Implant PROCEDURE: Single chamber defibrillator implantation and device testing. INDICATIONS: Mr. Lucio is a 71 -year-old male with non ischemic cardiomyopathy, with congestive heart failure, ejection fraction 25%, on optimal medical management, who undergo defibrillator implantation for sudden primary prevention. The risks, the nature and the benefit of the procedure are clearly stated to him . Risks include pneumothorax, cardiac perforation, stroke and even . He understood and agreed to proceed. PROCEDURE: As written, informed consent was obtained prior to electrophysiology study, the patient was kept on the table Lab where he was prepped and draped in the sterile fashion. Conscious sedation was initiated and maintained throughout the procedure by anesthesiologist. Once sedation was verified, the left infraclavicular area was anesthetized with 2% Xylocaine. Using modified Seldinger technique, the left subclavian vein was cannulated on one occasion and one guide wire was advanced. Then, using #11 blade scalpel, a 3-cm incision was made two fingerbreadths below left clavicle. This incision was then taken down to the deep fascial layer using Bovie cautery and blunt dissection. Into the inferomedial direction, a device pocket was dissected, then the wire was dissected into the pocket. A 2-0 Vicryl suture was placed around the wires to prevent bleeding. At this point, over the wire, the 9- [place] Islander dilator and introducer was advanced. As dilator and wire were removed, an active fixation right ventricular pacing, sensing and defibrillatory lead was advanced. After adequate pacing and sensing thresholds were obtained, the lead was secured in the pocket with #2 Ethibond suture. At that point, the pocket was copiously irrigated with antibiotic solution. The leads were connected to the generator and placed into the pocket. I did proceed with wound closure. The deep fascial layer was approximated with 2-0 Vicryl suture in a continuous fashion. The subcutaneous layer was approximated with 2-0 Vicryl suture in a continuous fashion. The subcuticular layer was approximated with 2-0 Vicryl suture in a continuous fashion. Dermabond adhesive was applied to the wound, followed by a sterile pressure dressing. There was no complication. The patient tolerated procedure. Blood loss minimal. 1. Implanted Hardware: The implanted defibrillator generator is a Oasys Mobile, model number D020, serial number [id number]. The right ventricular pacing, sensing and defibrillatory lead is a [employer] model number 0296 -64, serial number [id number]. 2. Thresholds: The right ventricular pacing threshold in the bipolar mode was 0.8volts at 0.5 milliseconds, lead impedance 722 ohms and R-wave at 9.8 mV. 3. Settings: The device set in VVI 40 defibrillatory portion for two zones, one zone for ventricular tachycardia between 160 and 240 beats per minute. Initial therapy consists of one burst of ATP, one ramp, 81%, 10 pulse, 10 millisecond decremental, followed by 20, then 30 and all subsequent shocks at 40 joules defibrillatory shock, the second zone for ventricular fibrillation above 240beats per minute, first therapy at 30 and all subsequent shocks at 40 joules defibrillatory shock. CONCLUSIONS: Successful defibrillator implantation. COMMENT AND RECOMMENDATIONS: The patient will be transferred to the telemetry unit, will be observed and when stable can be discharged home. Shelby Turner MD Mar 12, 2017 13:34
[2017-03-12] MEDS ORDERED: DO NOT ADM ANY ANTICOAGULANT DRUGS PRN (13:38)
--- NOTE | 2017-03-12 14:51 | MA ---
cc: JOE ANGLIN M.D. DATE: 03/12/2017 PROCEDURE Electrophysiology study, CS cannulation, repeat electrophysiology study on Isuprel infusion. INDICATION Mr. Lucio is a 71-year-old gentleman with history of congestive heart failure, cardiomyopathy, ejection fraction 25%, to undergo electrophysiology study. The risks, the nature and the benefit of the procedure are clearly stated to him. The risks include pneumothorax, cardiac perforation, stroke, need for open heart surgery and even . The patient understood and agreed to proceed. PROCEDURE After written informed consent was obtained, the patient was brought to the EP lab where he was prepped and draped in the usual sterile fashion. Conscious sedation was initiated and maintained throughout the procedure by anesthesiologist. Once sedation was verified, the right inguinal area was anesthetized with 2% Xylocaine. Using modified Seldinger technique, the right femoral vein was cannulated on four occasions, four guidewires were advanced. Over the wire 3, 5 and a 6-Bulgarian Hemaquet were advanced. Then under fluoroscopic guidance through the 5 and 6-Bulgarian Hemaquet, four 5-Bulgarian Dia curved quadripolar electrophysiology catheters were advanced and placed around the His, upper right atrium, coronary sinus and right ventricular apex. Basic interval was measured, they were within normal limits. At this point atrial pacing protocol was performed, atrial pacing protocol consists of incremental atrial pacing as well as program stimulation with 410 cycle length and up to one excess stimuli delivered. No tachyarrhythmia was induced. Then ventricular pacing protocol was performed. There was no VA conduction. Ventricular pacing protocol consists of incremental ventricular pacing as well as program stimulation with 410 cycle length and up to one excess stimuli delivered. No tachyarrhythmia was induced. Then Isuprel infusion was initiated at 5 logan. Ventricular pacing protocol was repeated again, no tachyarrhythmia was induced. At that point the procedure was complete. Blood pressure decreased. The patient is going to be kept on the table, a single chamber defibrillator will be implanted for sudden primary prevention. No incident report. The patient tolerated the procedure. Blood loss was minimal. 1. Electrocardiogram. At baseline the patient was in sinus. Postprocedure electrocardiogram unchanged. 2. Basic interval. Base cycle length was around 830 milliseconds. AH 90 and HV at 48 milliseconds. 3. Atrial pacing protocol. Wenckebach of the node was around 400 milliseconds. ERP of the node was 600 to 220 milliseconds. No tachyarrhythmia was induced. 4. Ventricular pacing protocol. There was no VA at baseline. No VA on Isuprel. No tachyarrhythmia was induced. CONCLUSION Negative electrophysiology study for supraventricular tachyarrhythmia. COMMENT AND RECOMMENDATION The gentleman has ejection fraction of around 25% on optimal medical treatment for over 3-months, single chamber defibrillator will be implanted for sudden primary prevention. MD NATALYA Oro/VIKI /1:36 PM /2:18 PM
[2017-03-12] MEDS ORDERED: ATROPINE SULFATE 1 MG/ML VIAL IV PUSH PRN (15:30)
[2017-03-12] MEDS ORDERED: oxyCODONE/ACETAMINOPHEN 5 MG/325 MG TAB PO PRN (15:30)
[2017-03-12] MEDS ORDERED: SODIUM CHLOR 0.9% 250 ML INJ 250 ML IV PRN (15:30)
[2017-03-12] MEDS ORDERED: METOCLOPRAMIDE HCL 10 MG/2 ML VIAL IV PUSH PRN (15:30)
[2017-03-12] MEDS ORDERED: BACITRACIN OINT 0.9 GM PKT TOP ONE (15:30)
[2017-03-12] MEDS ORDERED: LIDOCAINE HCL 1% 50 ML VIAL INFIL PRN (15:30)
[2017-03-12] MEDS ORDERED: ONDANSETRON HCL 4 MG/2 ML VIAL IV PUSH PRN (15:30)
[2017-03-12] MEDS ORDERED: LORazepam 2 MG/ML VIAL IV PUSH PRN (15:30)
[2017-03-12] MEDS ORDERED: *morphine SULFATE 8 MG/ML PERIprocedure ONLY ONE (15:31)
--- NOTE | 2017-03-12 16:46 | RADRPT ---
EXAM DATE/TIME: 03/12/2017 16:09 [place] COMPARISON: CHEST SINGLE AP, February 11, 2017, 9:04. INDICATIONS : Post pacemaker. MEDICAL HISTORY : Cardiovascular disease. Cerebrovascular disease. Endocarditis. SURGICAL HISTORY : Cholecystectomy. Appendectomy. ENCOUNTER: Initial ACUITY: 1 day PAIN SCORE: 0/10 LOCATION: Bilateral chest FINDINGS: The heart is enlarged. A left subclavian AICD has its tip in the right ventricle. The pulmonary vas cular pattern is normal. The lungs are clear. Degenerative changes and scoliosis of the thoracic sp ine are noted. CONCLUSION: 1. Cardiomegaly. 2. No acute focal pulmonary infiltrate or pulmonary vascular congestion. 3. Degenerative changes and scoliosis of the thoracic spine. Vargas Sue MD on March 12, 2017 at 16:41 Board Certified Radiologist. This report was verified electronically.
[2017-03-12] MEDS: oxyCODONE/ACETAMINOPHEN 5 MG/325 MG TAB PO PRN ×2 (17:02→22:15)
[2017-03-12] MEDS: ceFAZolin 2 GM PREMIX 50 ML IV SCH (20:24)
[2017-03-12] MEDS ORDERED: INSULIN DETEMIR 100 UNITS/ML VIAL SQ SCH (21:00)
[2017-03-12] MEDS: ENOXAPARIN SODIUM 100 MG/ML SYRINGE SQ SCH (21:10)
[2017-03-12] MEDS ORDERED: clonazePAM 1 MG TAB PO PRN (21:15)
[2017-03-12] MEDS ORDERED: WARFARIN SOD 6 MG TAB PO SCH (21:15)
[2017-03-12] MEDS: metFORMIN HCL 500 MG TAB PO SCH (21:15)
[2017-03-12] MEDS ORDERED: GLUCAGON 1 MG/ML VIAL OTHER PRN ×2 (21:45→22:15)
[2017-03-12] MEDS ORDERED: DEXTROSE 50% IN WATER 50 ML VIAL(D50) IV PUSH PRN ×2 (21:45→22:15)
[2017-03-12] MEDS: CARVEDILOL 3.125 MG TAB PO SCH (22:16)
[2017-03-12] MEDS: MEDIUM DOSE INSULIN NOVOLOG SUPPLEMENTAL SCALE SQ SCH (22:18)
[2017-03-13] VITALS (12 sets, daily range): BP systolic 100–111; BP diastolic 57–58; PULSE 64–96; RESP 16; TEMP 97.5–98.2; O2SAT 95–96
[2017-03-13] MEDS: ceFAZolin 2 GM PREMIX 50 ML IV SCH (03:08)
[2017-03-13] MEDS: oxyCODONE/ACETAMINOPHEN 5 MG/325 MG TAB PO PRN ×2 (05:56→10:14)
[2017-03-13] MEDS: MEDIUM DOSE INSULIN NOVOLOG SUPPLEMENTAL SCALE SQ SCH (06:04)
[2017-03-13] MEDS ORDERED: CEPH500C PO (08:11)
--- NOTE | 2017-03-13 08:16 | PD.CARD.PN ---
Subjective Subjective Remarks Feels okay. Objective Medications Current Medications Medications (Trade) Dose Ordered Sig/Keiko Route Start Time Stop Time Status Last Admin (Lopressor) 25 mg MOBILE DEVICE DEVELOPER PRN PO 03/12/17 10:00 03/15/17 09:59 Sodium Chloride 1,000 ml @ 30 mls/hr Q24H IV 03/12/17 10:00 (Ativan) 1 mg MOBILE DEVICE DEVELOPER SL 03/12/17 10:00 03/15/17 09:59 (Chlorhexidine 2% Cloth) 3 pack MOBILE DEVICE DEVELOPER TOPICAL 03/12/17 10:00 03/15/17 09:59 03/12/17 10:00 Miscellaneous Information ALL NURSING DEPARTME... UNSCH PRN .XX 03/12/17 13:38 03/13/17 13:37 (Percocet 5-325 Mg) 1 tab Q4H PRN PO 03/12/17 15:30 (Percocet 5-325 Mg) 2 tab Q4H PRN PO 03/12/17 15:30 03/13/17 05:56 (Ativan Inj) 0.5 mg UNSCH PRN IV PUSH 03/12/17 15:30 03/13/17 15:29 (Atropine Inj) 0.5 mg UNSCH PRN IV PUSH 03/12/17 15:30 Sodium Chloride 250 ml @ 500 mls/hr ONCE PRN IV 03/12/17 15:30 03/13/17 15:29 (Reglan Inj) 10 mg Q4H PRN IV PUSH 03/12/17 15:30 (Zofran Inj) 4 mg Q4H PRN IV PUSH 03/12/17 15:30 (Xylocaine 1% Inj (50 ml)) 10 ml UNSCH PRN INFIL 03/12/17 15:30 03/13/17 15:29 Cefazolin Sodium/ Dextrose 50 ml @ 100 mls/hr Q8H IV 03/12/17 19:27 03/13/17 11:56 03/13/17 03:08 (Prinivil) 5 mg DAILY PO 03/13/17 09:00 (KlonoPIN) 1 mg Q8H PRN PO 03/12/17 21:15 03/12/17 22:16 (Demadex) 20 mg DAILY PO 03/13/17 09:00 (Aldactone) 25 mg DAILY PO 03/13/17 09:00 (Levemir Inj) 5 units HS SQ 03/12/17 21:00 03/12/17 22:17 (Coreg) 3.125 mg BID PO 03/12/17 21:00 03/12/17 22:16 (Lovenox Inj) 100 mg Q12HR SQ 03/12/17 21:10 (Glucophage) 500 mg DAILY PO 03/12/17 21:15 (Toprol Xl) 25 mg DAILY PO 03/13/17 09:00 (Coumadin) 6 mg DAILY@1600 PO 03/12/17 21:15 (D50w (Vial) Inj) 50 ml UNSCH PRN IV PUSH 03/12/17 22:15 (Glucagon Inj) 1 mg UNSCH PRN OTHER 03/12/17 22:15 (NovoLOG SUPPLEMENTAL SCALE) 1 ACHS SLIDING SCALE SQ 03/12/17 22:06 03/12/17 22:18 (Keflex) 500 mg Q8HR PO 03/13/17 14:00 03/16/17 13:59 Vital Signs / I&O Vital Signs Date Time Temp Pulse Resp B/P (MAP) Pulse Ox O2 Delivery O2 Flow Rate FiO2 03/13/17 07:45 98.2 77 16 100/58 (72) 95 03/13/17 06:00 72 03/13/17 05:00 71 03/13/17 04:00 64 03/13/17 03:00 97.5 70 16 111/57 (75) 96 03/13/17 03:00 65 03/13/17 02:00 68 03/13/17 01:00 69 03/13/17 00:00 70 03/12/17 23:00 97.6 65 18 108/60 (76) 96 03/12/17 23:00 65 03/12/17 22:00 82 03/12/17 21:00 90 03/12/17 20:20 97.6 75 18 108/58 (75) 95 03/12/17 20:00 74 03/12/17 19:00 88 03/12/17 18:17 16 03/12/17 16:31 97.5 67 16 108/66 (80) 95 03/12/17 15:55 69 18 112/63 (79) 100 Nasal Cannula 2 03/12/17 15:30 74 20 125/70 (88) 100 Nasal Cannula 2 03/12/17 15:15 71 20 121/65 (83) 100 Nasal Cannula 2 03/12/17 15:00 71 20 127/66 (86) 100 Nasal Cannula 2 03/12/17 14:45 72 20 125/64 (84) 100 Nasal Cannula 2 03/12/17 14:30 70 20 130/71 (90) 100 Nasal Cannula 2 03/12/17 14:15 71 20 137/76 (96) 100 Nasal Cannula 2 03/12/17 14:00 74 20 124/72 (89) 100 Nasal Cannula 2 03/12/17 13:45 97.5 72 20 131/73 (92) 100 Nasal Cannula 2 03/12/17 09:41 97.9 88 17 116/69 (85) 95 I/O 03/12/17 03/12/17 03/12/17 03/13/17 03/13/17 03/13/17 07:00 15:00 23:00 07:00 15:00 23:00 Intake Total 170 ml 770 ml Output Total 825 ml Balance 170 ml -55 ml Intake Oral 120 ml 720 ml IV Total 50 ml 50 ml Output Urine Total 825 ml # Voids 1 1 # Bowel Movements 1 Physical Exam GENERAL: Well-nourished, well-developed patient. SKIN: Warm and dry. Left chest wall incision well approximated without erythema or drainage. HEAD: Normocephalic. EYES: No scleral icterus. No injection or drainage. NECK: Supple, trachea midline. No JVD or lymphadenopathy. CARDIOVASCULAR: Regular rate and rhythm without murmurs, gallops, or rubs. RESPIRATORY: Breath sounds equal bilaterally. No accessory muscle use. GASTROINTESTINAL: Abdomen soft, non-tender, nondistended. EXTREMITIES: No cyanosis, or edema. NEUROLOGICAL: Awake, alert, and oriented x 3. Non-focal. Laboratory Laboratory Tests Test 03/12/17 09:31 White Blood Count 10.5 TH/MM3 Red Blood Count 4.11 MIL/MM3 Hemoglobin 12.1 GM/DL Hematocrit 36.6 % Mean Corpuscular Volume 89.3 FL Mean Corpuscular Hemoglobin 29.4 PG Mean Corpuscular Hemoglobin Concent 33.0 % Red Cell Distribution Width 16.4 % Platelet Count 196 TH/MM3 Mean Platelet Volume 8.4 FL Neutrophils (%) (Auto) 82.1 % Lymphocytes (%) (Auto) 8.3 % Monocytes (%) (Auto) 8.2 % Eosinophils (%) (Auto) 1.2 % Basophils (%) (Auto) 0.2 % Neutrophils # (Auto) 8.6 TH/MM3 Lymphocytes # (Auto) 0.9 TH/MM3 Monocytes # (Auto) 0.9 TH/MM3 Eosinophils # (Auto) 0.1 TH/MM3 Basophils # (Auto) 0.0 TH/MM3 CBC Comment DIFF FINAL Differential Comment Prothrombin Time 19.3 SEC Prothromb Time International Ratio 1.7 RATIO Activated Partial Thromboplast Time 36.8 SEC Blood Urea Nitrogen 21 MG/DL Creatinine 1.24 MG/DL Random Glucose 165 MG/DL Calcium Level 10.4 MG/DL Sodium Level 136 MEQ/L Potassium Level 4.4 MEQ/L Chloride Level 102 MEQ/L Carbon Dioxide Level 26.4 MEQ/L Anion Gap 8 MEQ/L Estimat Glomerular Filtration Rate 58 ML/MIN Imaging Last Impressions Chest X-Ray 03/12/17 0000 Signed Impressions: Service Date/Time: , March 12, 2017 16:09 - CONCLUSION: 1. Cardiomegaly. 2. No acute focal pulmonary infiltrate or pulmonary vascular congestion. 3. Degenerative changes and scoliosis of the thoracic spine. Vargas Sue MD Assessment and Plan Problem List: (1) S/P ICD (internal cardiac defibrillator) procedure ICD Codes: Z95.810 - Presence of automatic (implantable) cardiac defibrillator Status: Acute Plan: On Coumadin with Lovenox bridge. INR 9/71.7. Stat INR requested to evaluate need to continue Lovenox. Once results received patient can be discharged home and follow-up with Dr. Turner in 2 weeks. (2) CHF (congestive heart failure) ICD Codes: I50.9 - Heart failure, unspecified Status: Chronic Plan: EF 25%, on optimized meds for 3 months. Stable status post ICD implantation for sudden cardiac prevention. Discussed Condition With Discussed with patient, RN, Dr. Turner. Christine Zuniga Mar 13, 2017 08:16
[2017-03-13] MEDS ORDERED: LISINOPRIL 5 MG TAB PO SCH (09:00)
[2017-03-13] MEDS ORDERED: SPIRONOLACTONE 25 MG TAB PO SCH (09:00)
[2017-03-13] MEDS ORDERED: METOPROLOL SUCCINATE 25 MG EXTENDED RELEASE TAB PO SCH (09:00)
[2017-03-13] MEDS ORDERED: TORSEMIDE 20 MG TAB PO SCH (09:00)
[2017-03-13] MEDS: metFORMIN HCL 500 MG TAB PO SCH (09:14)
[2017-03-13] MEDS: CARVEDILOL 3.125 MG TAB PO SCH (09:14)
[2017-03-13] MEDS: ENOXAPARIN SODIUM 100 MG/ML SYRINGE SQ SCH (09:15)
[2017-03-13 09:41] LABS: INTERNATIONAL NORMALIZED RATIO 1.3 RATIO
[2017-03-13] MEDS: NS 1000 ML IV SCH (10:00)
--- NOTE | 2017-03-13 11:25 | EKG ---
Date Performed: 03/13/2017 Time Performed: 05:48:10 PTAGE: 71 years EKG: Sinus rhythm Left anterior fascicular block Possible anterior infarct - age undetermined Inferior/lateral T wave changes are nonspecific Abnormal ECG PREVIOUS TRACING : 03/12/2017 19.08 No significant change from previous tracing noted. DOCTOR: Russell Alberto Interpretating Date/Time 03/13/2017 11:24:15
[2017-03-13] MEDS ORDERED: CEPHALEXIN MONOHYDRATE 500 MG CAP PO SCH (14:00)
--- NOTE | 2017-03-14 13:43 | EKG ---
Date Performed: 03/12/2017 Time Performed: 19:08:08 PTAGE: 71 years EKG: Sinus rhythm Possible left anterior fascicular block Possible anterior infarct - age undetermined Inferior/latera l ST-T changes may be due to myocardial ischemia Compared to prior tracing no significant change Abno rmal ECG PREVIOUS TRACING : 03/12/2017 09.47 DOCTOR: Pancho Klein Interpretating Date/Time 03/14/2017 13:42:23
== END 2017-03-13 11:21 | disposition home or self-care (01) ==
LOC: HCAT 08:55 → HDIC 08:58 → HCIN 16:24 → HCAT 03-13 11:21
PROVIDERS: ATTEND Internal Medicine Interventional Cardiology
DX: I50.9 Heart failure, unspecified (principal); I42.9 Cardiomyopathy, unspecified; E11.40 Type 2 diabetes mellitus with diabetic neuropathy, unspecified; Z79.84 Long term (current) use of oral hypoglycemic drugs; Z79.01 Long term (current) use of anticoagulants
CPT/HCPCS: 00530; 33249; 71010; 80048; 82948; 85025; 85610; 85730; 86850; 86900; 86901; 93005; 93620; 93623; C1722; C1730; C1777; J0690; J1650; J1815; J2270; J3370; J7050

== ENCOUNTER 2017-07-17 13:12 | Observation (INO) | payer MEDICARE ==
[~2017-07-17] VITALS: Ht 182.9 cm; Wt 71.5 kg
[~2017-07-17 13:12] MED LIST changes: -ASPI-110 PO; +CARV3.12 PO; +CEPH500C PO; +ENOX100P SQ; -ENOX80P SQ; -LEVA750T9 PO; +METF500T PO; +METO1TAB42 PO; -METO25TA6 PO; -WARF-20 PO; +WARF-60 PO
[2017-07-17 13:14] VITALS: BP 134/82; PULSE 85; RESP 12; TEMP 98.2; O2SAT 97
--- NOTE | 2017-07-17 15:18 | PD ---
Physical Exam Date Seen by Provider: Jul 17, 2017 Time Seen by Provider: 15:14 Narrative The patient was initially evaluated by the mid-level provider. Please refer to the initial history, physical, diagnostic evaluation, and treatment modality plan. I was asked to evaluate the patient for ultrasound guided IV placement as the patient does have a history of IV drug use. Data Data Last Documented VS Vital Signs Date Time Temp Pulse Resp B/P (MAP) Pulse Ox O2 Delivery O2 Flow Rate FiO2 07/17/17 14:17 89 18 Room Air 07/17/17 13:14 98.2 134/82 (99) 97 Orders Orders Electrocardiogram (07/17/17 13:48) Basic Metabolic Panel (Bmp) (07/17/17 13:48) B-Type Natriuretic Peptide (07/17/17 13:48) Ckmb (Isoenzyme) Profile (07/17/17 13:48) Complete Blood Count With Diff (07/17/17 13:48) Magnesium (Mg) (07/17/17 13:48) Prothrombin Time / Inr (Pt) (07/17/17 13:48) Act Partial Throm Time (Ptt) (07/17/17 13:48) Troponin I (07/17/17 13:48) Chest, Pa & Lat (07/17/17 13:48) MDM Medical Record Reviewed: Yes Supervised Visit with RAINER: Yes Differential Diagnosis Differential diagnosis includes acute coronary syndrome, pulmonary was on, pericarditis, myocarditis, pericardial effusion, GERD, bronchospasm, pneumonia, bronchitis, endocarditis. Procedures Procedure Narrative I placed an ultrasound-guided IV in the left upper extremity using a linear probe. The left upper extremity was cleaned with ChloraPrep, under ultrasound guidance, using a linear probe, I placed a 1.88 inch 20-gauge ultrasound-guided IV in the left upper extremity. There is good blood return and the IV flowed easily. There was no obvious complications and the patient tolerated the procedure without difficulty. Condition: Stable Mark Waldrop MD Jul 17, 2017 15:18
--- NOTE | 2017-07-17 15:19 | RADRPT ---
EXAM DATE/TIME: 07/17/2017 14:54 [facility] COMPARISON: No previous studies available for comparison. INDICATIONS : Chest pain, short of breath, phlegm MEDICAL HISTORY : Congestive heart failure. hx of collapsed lung years ago, pneumonia x2, childhood asthma SURGICAL HISTORY : pacemaker/defibrillator ENCOUNTER: Initial ACUITY: 3 days PAIN SCORE: 7/10 LOCATION: Bilateral chest FINDINGS: Pacemaker left chest. Minimal parenchymal changes right lower lobe suspicious for an early inflammat ory process with mild loss. Left lung clear. The heart and pulmonary vascularity are normal. CONCLUSION: Minimal parenchymal changes right base suspicious for inflammatory process Larry Sharma MD FACR on July 17, 2017 at 15:16 Board Certified Radiologist. This report was verified electronically.
[2017-07-17 15:37] LABS: AUTOMATED NEUTROPHIL # 3.5 TH/MM3 (1.8-7.7); BASOPHIL # 0.1 TH/MM3 (0-0.2); BASOPHIL % 0.9 % (0.0-2.0); EOSINOPHIL # 0.1 TH/MM3 (0-0.4); EOSINOPHIL % 1.4 % (0.0-4.0); HEMATOCRIT 43.1 % (39.0-51.0); HEMOGLOBIN 14.1 GM/DL (13.0-17.0); LYMPH % 26.2 % (9.0-44.0); LYMPHOCYTE # 1.4 TH/MM3 (1.0-4.8); MEAN CORPUSCULAR HEMOGLOBIN 28.4 PG (27.0-34.0); MEAN CORPUSCULAR HGB CONC 32.7 % (32.0-36.0); MEAN PLATELET VOLUME 8.4 FL (7.0-11.0); MONO % 7.7 % (0.0-8.0); MONOCYTE # 0.4 TH/MM3 (0-0.9); NEUT % 63.8 % (16.0-70.0); PLATELET COUNT 206 TH/MM3 (150-450); RED BLOOD COUNT 4.95 MIL/MM3 (4.50-5.90); RED CELL DISTRIBUTION WIDTH 15.8 % (11.6-17.2); WHITE BLOOD COUNT 5.4 TH/MM3 (4.0-11.0)
[2017-07-17 15:47] LABS: INTERNATIONAL NORMALIZED RATIO 1.2 RATIO; PROTHROMBIN TIME - PATIENT 11.9 SEC (9.8-11.6)
[2017-07-17 16:02] LABS: BICARBONATE 29.8 MEQ/L (21.0-32.0); BLOOD UREA NITROGEN 18 MG/DL (7-18); CALCIUM 9.4 MG/DL (8.5-10.1); CHLORIDE 100 MEQ/L (98-107); CREATININE 1.24 MG/DL (0.60-1.30); GLOMERULAR FILTRATION RATE 58 ML/MIN (>89); GLUCOSE,RANDOM 224 MG/DL (74-106); MAGNESIUM 1.9 MG/DL (1.5-2.5); SODIUM (NA) 137 MEQ/L (136-145)
--- NOTE | 2017-07-17 16:02 | PD ---
HPI Chief Complaint: Chest Pain Time Seen by Provider: 14:14 Travel History International Travel<30 days: No Contact w/Intl Traveler<30days: No Traveled to known affect area: No History of Present Illness HPI 72-year-old male to presents to the ED for evaluation of chest pain and shortness of breath with exertion as well as with lying down. Per patient is a significant history of CHF. Per patient the pain is 6 out of 10. Does not radiate. Per patient she had the fairly replaced last year and his been doing fine until today. He follows with Dr. Henry. He has a significant history of CHF as well as ACS. Patient has so he definitely will go off. Per patient the shortness of breath is more severe with exertion. Per patient he is compliant with his medications. He currently takes Coumadin. Denies any cough or runny nose. Denies any injury. Allergies to morphine a history of MRSA. Denies any fevers chills or sweats. Denies any other medical issues at this time. States that he believes that his gaining some weight but he states that he is never gained any fluid in his legs before as well as this time with his CHF exacerbations. PFSH Past Medical History Hx Anticoagulant Therapy: Yes (Coumadin) Arthritis: No Asthma: Yes (OUTGROWN ) Blood Disorders: No Anxiety: Yes Depression: Yes Heart Rhythm Problems: No Cancer: No Cardiac Catheterization: No Cardiovascular Problems: Yes (CHF, HTN, cholesterol) High Cholesterol: Yes Chemotherapy: No Chest Pain: No Congestive Heart Failure: Yes COPD: No Cerebrovascular Accident: Yes Coronary Artery Disease: Yes Diabetes: Yes Patient Takes Glucophage: Yes Diminished Hearing: No Endocrine: Yes Gastrointestinal Disorders: No GERD: No Glaucoma: No Genitourinary: No Headaches: No Hepatitis: No Hiatal Hernia: No Heparin Induced Thrombocytopen: No Hypertension: Yes Immune Disorder: No Implanted Vascular Access Dvce: No Kidney Stones: No Musculoskeletal: Yes Neurologic: Yes Psychiatric: No Reproductive: No Respiratory: Yes (PULMONARY EMBOLISM ) Integumentary: Yes Immunizations Current: Yes Migraines: No Myocardial Infarction: Yes (mother) Radiation Therapy: No Renal Failure: No Seizures: Yes (20 YEARS AGO W/ TIAS) Sickle Cell Disease: No Sleep Apnea: No Thyroid Disease: No Ulcer: No PNEUMOCCOCAL Vaccine (Year): 2007 Past Surgical History AICD: No Appendectomy: Yes Arteriovenous Shunt: No Body Medical Devices: TIERRA IN NECK Cardiac Surgery: No Cholecystectomy: Yes (pt is unsure) Coronary Artery Bypass Graft: No Ear Surgery: No Endocrine Surgery: No Eye Surgery: No Genitourinary Surgery: No Gynecologic Surgery: No Insulin Pump: No Joint Replacement: No Neurologic Surgery: No Oral Surgery: No Pacemaker: No Thoracic Surgery: Yes (COLLAPSED LUNG) Other Surgery: Yes Social History Alcohol Use: No Tobacco Use: No Substance Use: Yes (HX OF IVD, CANNABIS CURRENTLY ) Allergies-Medications (Allergen,Severity, Reaction): Coded Allergies: morphine (Unverified Allergy, Severe, Itching, 07/17/17) *MDRO Multi-Drug Resistant Organism (Verified Adverse Reaction, Unknown, ) 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/16 Reported Meds & Prescriptions Reported Meds & Active Scripts Active Temperance (Hydrocodone-Acetaminophen) 10-325 Mg Tab 1 Tab PO Q8HR PRN Aldactone (Spironolactone) 25 Mg Tab 25 Mg PO DAILY Torsemide 20 Mg Tab 20 Mg PO DAILY Klonopin (Clonazepam) 1 Mg Tab 1 Mg PO Q8HR PRN Lisinopril 5 Mg Tab 5 Mg PO DAILY Reported Warfarin 6 Mg Tab 5 Mg PO DAILY Metoprolol Succinate ER 24 HR (Metoprolol Succinate) 25 Mg Tab 25 Mg PO DAILY Metformin (Metformin HCl) 500 Mg Tab 500 Mg PO DAILY With a meal Carvedilol 3.125 Mg Tab 3.125 Mg PO BID Review of Systems Except as stated in HPI: all other systems reviewed are Neg Physical Exam Narrative GENERAL: SKIN: Warm and dry. HEAD: Atraumatic. Normocephalic. EYES: Pupils equal and round. No scleral icterus. No injection or drainage. ENT: No nasal bleeding or discharge. Mucous membranes pink and moist. Tongue is midline. No uvula deviation. NECK: Trachea midline. No JVD. CARDIOVASCULAR: Regular rate and rhythm. No murmurs, S3, S4. Chest pain is not reproducible with touch. RESPIRATORY: No accessory muscle use. Clear to auscultation. Breath sounds equal bilaterally. GASTROINTESTINAL: Abdomen soft, non-tender, nondistended. Hepatic and splenic margins not palpable. MUSCULOSKELETAL: Extremities without clubbing, cyanosis, or edema. No obvious deformities. Full range of motion of the upper and lower extremities bilaterally. 2+ pulses bilaterally. NEUROLOGICAL: Awake and alert. No obvious cranial nerve deficits. Motor grossly within normal limits. Five out of 5 muscle strength in the arms and legs. Normal speech. PSYCHIATRIC: Appropriate mood and affect; insight and judgment normal. Data Data Last Documented VS Vital Signs Date Time Temp Pulse Resp B/P (MAP) Pulse Ox O2 Delivery O2 Flow Rate FiO2 07/17/17 14:17 89 18 Room Air 07/17/17 13:14 98.2 134/82 (99) 97 Orders Orders Electrocardiogram (07/17/17 13:48) Basic Metabolic Panel (Bmp) (07/17/17 13:48) B-Type Natriuretic Peptide (07/17/17 13:48) Ckmb (Isoenzyme) Profile (07/17/17 13:48) Complete Blood Count With Diff (07/17/17 13:48) Magnesium (Mg) (07/17/17 13:48) Prothrombin Time / Inr (Pt) (07/17/17 13:48) Act Partial Throm Time (Ptt) (07/17/17 13:48) Troponin I (07/17/17 13:48) Chest, Pa & Lat (07/17/17 13:48) Ct Pulmonary Angiogram (07/17/17 ) CKMB (07/17/17 15:19) CKMB% (07/17/17 15:19) Furosemide Inj (Lasix Inj) (07/17/17 17:00) Iohexol 350 Inj (Omnipaque 350 Inj) (07/17/17 16:56) Admit Order (Ed Use Only) (07/17/17 17:31) Clonazepam (Klonopin) (07/17/17 17:45) Labs Laboratory Tests Test 07/17/17 15:19 White Blood Count 5.4 TH/MM3 Red Blood Count 4.95 MIL/MM3 Hemoglobin 14.1 GM/DL Hematocrit 43.1 % Mean Corpuscular Volume 87.0 FL Mean Corpuscular Hemoglobin 28.4 PG Mean Corpuscular Hemoglobin Concent 32.7 % Red Cell Distribution Width 15.8 % Platelet Count 206 TH/MM3 Mean Platelet Volume 8.4 FL Neutrophils (%) (Auto) 63.8 % Lymphocytes (%) (Auto) 26.2 % Monocytes (%) (Auto) 7.7 % Eosinophils (%) (Auto) 1.4 % Basophils (%) (Auto) 0.9 % Neutrophils # (Auto) 3.5 TH/MM3 Lymphocytes # (Auto) 1.4 TH/MM3 Monocytes # (Auto) 0.4 TH/MM3 Eosinophils # (Auto) 0.1 TH/MM3 Basophils # (Auto) 0.1 TH/MM3 CBC Comment DIFF FINAL Differential Comment Prothrombin Time 11.9 SEC Prothromb Time International Ratio 1.2 RATIO Activated Partial Thromboplast Time 25.0 SEC Blood Urea Nitrogen 18 MG/DL Creatinine 1.24 MG/DL Random Glucose 224 MG/DL Calcium Level 9.4 MG/DL Magnesium Level 1.9 MG/DL Sodium Level 137 MEQ/L Potassium Level 4.1 MEQ/L Chloride Level 100 MEQ/L Carbon Dioxide Level 29.8 MEQ/L Anion Gap 7 MEQ/L Estimat Glomerular Filtration Rate 58 ML/MIN Total Creatine Kinase 130 U/L Creatine Kinase MB 4.7 NG/ML Troponin I 0.02 NG/ML B-Type Natriuretic Peptide 2674 PG/ML MDM Medical Decision Making Medical Screen Exam Complete: Yes Emergency Medical Condition: Yes Medical Record Reviewed: Yes Interpretation(s) EKG shows sinus rhythm with no sign of acute ischemia or arrhythmia by me and attending. Last Impressions Chest X-Ray 07/17/17 1348 Signed Impressions: Service Date/Time: Monday, July 17, 2017 14:54 - CONCLUSION: Minimal parenchymal changes right base suspicious for inflammatory process Larry Sharma MD FACR CT Angiography 07/17/17 0000 Signed Impressions: Service Date/Time: Monday, July 17, 2017 16:33 - CONCLUSION: 1. No CT evidence for pulmonary artery embolism. 2. Multiple groundglass nodular opacities in the left lung base with discrete apparently new solid nodule measuring up to 9 mm. Consider a followup CT examination in 3 months to document stability. Alternatively, PET/CT examination may be performed. Recommendations are based on 2017 Fleischner criteria. Javon Yo MD CBC & BMP Diagram 07/17/17 15:19 Calcium Level 9.4, Magnesium Level 1.9 BNP in the 2000s troponin and CKMB negative Differential Diagnosis CHF versus bronchitis versus pneumonia versus pulmonary embolism versus chest pain versus atypical chest pain Narrative Course 72-year-old male that presents to the ED for evaluation of chest pain and shortness of breath. Patient was properly examined and was found to have signs and symptoms of unclear etiology with possible CHF exacerbation. Patient does have significant history of heart disease with a fibular in place. Labs and imaging were ordered. Patient tolerated took an aspirin today and takes Coumadin as well. Patient complains more shortness of breath symptoms than the chest pain. Per patient chest pain is pressure-like. Labs and imaging showed no sign of acute disease other than elevated BNP in the . This appears to be likely CHF exacerbation. I did do a CT pulmonary grandmas patient's having complaint of chest pain or shortness of breath and has a history of PE and his Coumadin level was low which could put him at risk for this. CT was negative for this but did show nodules of the lungs concerning for need for follow-up. Case was discussed in my attending Dr. Waldrop who agrees the patient should be admitted. Case was discussed with Dr. Mak who agreed to admission. Diagnosis Primary Impression: Acute exacerbation of congestive heart failure Qualified Codes: I50.9 - Heart failure, unspecified Admitting Information Admitting Physician Requests: Preet Muhammad Jul 17, 2017 16:01
[2017-07-17 16:05] LABS: TROPONIN I 0.02 NG/ML (0.02-0.05)
[2017-07-17] MEDS ORDERED: IOHEXOL 350 MG/ML 10 ML VIAL (for RAD DIAG) IVCONTRAST ONE (16:56)
[2017-07-17] MEDS ORDERED: FUROSEMIDE 40 MG/4 ML VIAL IV PUSH ONE (17:00)
--- NOTE | 2017-07-17 17:23 | RADRPT ---
EXAM DATE/TIME: 07/17/2017 16:33 [facility] COMPARISON: CT PULMONARY ANGIOGRAM, January 20, 2017, 17:06. INDICATIONS : No energy, shortness of breath, nausea, chest pain. IV CONTRAST: 75 cc Omnipaque 350 (iohexol) IV RADIATION DOSE: 9.42 CTDIvol (mGy) MEDICAL HISTORY : Cardiovascular disease. Hypertension. Seizures.CVA; Diabetes SURGICAL HISTORY : Appendectomy. Cholecystectomy. ENCOUNTER: Initial ACUITY: 3 days PAIN SCALE: 6/10 LOCATION: chest TECHNIQUE: Volumetric scanning of the chest was performed using a pulmonary embolism protocol MIP images were re constructed. Using automated exposure control and adjustment of the mA and/or kV according to patien t size, radiation dose was kept as low as reasonably achievable to obtain optimal diagnostic quality images. DICOM format image data is available electronically for review and comparison. Follow-up recommendations for detected pulmonary nodules are based at a minimum on nodule size and pa tient risk factors according to Fleischner Society Guidelines. FINDINGS: PULMONARY ARTERIES: No filling defects are seen in the pulmonary arteries through the segmental level. LUNGS: Nodular groundglass opacity in the left lung base with discrete solid nodule measuring up to 9 mm. Th is was not demonstrated on prior exam although there was compressive atelectasis in this region. Mild bilateral interstitial prominence at the lung bases. PLEURAE: Mild pleural thickening posteriorly at the lung bases with pleural calcifications at the right lung b ase. MEDIASTINUM: There is good visualization of the great vessels of the middle mediastinum. Prominent coronary arter y calcifications. No evidence of mediastinal or hilar adenopathy/mass. MUSCULOSKELETAL: Chronic posterior right rib deformities. No focal new lytic or blastic bony lesions. MISCELLANEOUS: The visualized upper abdominal organs demonstrate no acute abnormality. CONCLUSION: 1. No CT evidence for pulmonary artery embolism. 2. Multiple groundglass nodular opacities in the left lung base with discrete apparently new solid no dule measuring up to 9 mm. Consider a followup CT examination in 3 months to document stability. Alte rnatively, PET/CT examination may be performed. Recommendations are based on 2017 Fleischner criteria . Javon Yo MD on July 17, 2017 at 17:10 Board Certified Radiologist. This report was verified electronically.
[2017-07-17] MEDS ORDERED: clonazePAM 1 MG TAB PO ONE (17:45)
[2017-07-17 17:51] VITALS: BP 151/99; PULSE 89; RESP 18; O2SAT 98
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
[2017-07-17] MEDS ORDERED: BISACODYL 10 MG SUPP RECTAL PRN (18:30)
[2017-07-17] MEDS ORDERED: SODIUM CHLORIDE 0.9% FLUSH 10 ML FLUSH IV FLUSH PRN (18:30)
[2017-07-17] MEDS ORDERED: SENNOSIDES 8.6 MG TAB PO PRN (18:30)
[2017-07-17] MEDS ORDERED: ONDANSETRON HCL 4 MG/2 ML VIAL IVP PRN (18:30)
[2017-07-17] MEDS ORDERED: LACTULOSE SYRUP 20 GM/30 ML CUP PO PRN (18:30)
[2017-07-17] MEDS ORDERED: MAGNESIUM HYDROXIDE SUSP 30 ML CUP PO PRN (18:30)
[2017-07-17] MEDS ORDERED: ACETAMINOPHEN 325 MG TAB PO PRN (18:30)
[2017-07-17] MEDS ORDERED: NALOXONE HCL 0.4 MG/ML AMP IV PUSH PRN (18:30)
[2017-07-17 20:00] VITALS: BP 105/70; PULSE 87; RESP 18; TEMP 97.6; O2SAT 98
[2017-07-17 20:11] VITALS: PULSE 87
[2017-07-17 20:43] VITALS: BP 115/71
[2017-07-17] MEDS: CARVEDILOL 3.125 MG TAB PO SCH (20:48)
[2017-07-17] MEDS: DOCUSATE SODIUM 50 MG/SENNA 8.6 MG TAB PO SCH (21:00)
[2017-07-17 21:16] LABS: INTERNATIONAL NORMALIZED RATIO 1.3 RATIO; PROTHROMBIN TIME - PATIENT 12.9 SEC (9.8-11.6)
[2017-07-17 21:42] LABS: TROPONIN I LESS THAN 0.02 NG/ML (0.02-0.05)
[2017-07-17] MEDS: INSULIN ASPART SUPPLEMENTAL SCALE SQ SCH (21:56)
[2017-07-17] MEDS: SODIUM CHLORIDE 0.9% FLUSH 10 ML FLUSH IV FLUSH SCH (21:56)
[2017-07-18] VITALS (11 sets, daily range): BP systolic 108–121; BP diastolic 58–83; PULSE 79–89; RESP 16–18; TEMP 96.7–98.5; O2SAT 93–99
[2017-07-18 04:12] LABS: ALBUMIN 3.2 GM/DL (3.4-5.0); ALT (GPT) 19 U/L (12-78); AST (GOT) 23 U/L (15-37); BLOOD UREA NITROGEN 19 MG/DL (7-18); CALCIUM 9.2 MG/DL (8.5-10.1); CHLORIDE 103 MEQ/L (98-107); CREATININE 1.28 MG/DL (0.60-1.30); GLOMERULAR FILTRATION RATE 56 ML/MIN (>89); GLUCOSE,RANDOM 150 MG/DL (74-106); SODIUM (NA) 139 MEQ/L (136-145)
[2017-07-18 04:14] LABS: ALKALINE PHOSPHATASE 128 U/L (45-117); TOTAL BILIRUBIN ADULT 0.8 MG/DL (0.2-1.0); TOTAL PROTEIN 7.4 GM/DL (6.4-8.2)
[2017-07-18 04:16] LABS: TROPONIN I 0.02 NG/ML (0.02-0.05)
[2017-07-18] MEDS ORDERED: METOPROLOL SUCCINATE 25 MG EXTENDED RELEASE TAB PO SCH (09:00)
[2017-07-18] MEDS: INSULIN ASPART SUPPLEMENTAL SCALE SQ SCH ×4 (10:45→21:00)
[2017-07-18] MEDS: SODIUM CHLORIDE 0.9% FLUSH 10 ML FLUSH IV FLUSH SCH ×2 (10:46→22:05)
[2017-07-18] MEDS: FUROSEMIDE 20 MG/2 ML VIAL IV PUSH SCH (10:46)
[2017-07-18] MEDS: CARVEDILOL 3.125 MG TAB PO SCH ×2 (10:47→21:00)
[2017-07-18] MEDS: DOCUSATE SODIUM 50 MG/SENNA 8.6 MG TAB PO SCH ×2 (10:47→22:05)
[2017-07-18] MEDS: LISINOPRIL 5 MG TAB PO SCH (10:47)
--- NOTE | 2017-07-18 13:46 | HHI.PR ---
Subjective Remarks in no acute distress. sob has improved. no new complaints. d/w the RN at the bedside. Objective Vitals Vital Signs Date Time Temp Pulse Resp B/P (MAP) Pulse Ox O2 Delivery O2 Flow Rate FiO2 07/18/17 07:55 97.5 86 121/83 (96) 98 07/18/17 07:34 96 21 07/18/17 04:03 85 07/18/17 03:41 98.5 88 18 114/67 (83) 98 07/18/17 02:24 87 16 99 07/18/17 01:50 98.1 88 18 110/58 (75) 93 07/18/17 00:03 84 07/17/17 20:43 115/71 (86) 07/17/17 20:11 87 07/17/17 20:00 97.6 87 18 105/70 (82) 98 07/17/17 19:32 07/17/17 17:51 89 18 151/99 (116) 98 Room Air 07/17/17 14:17 89 18 Room Air I/O 07/17/17 07/17/17 07/17/17 07/18/17 07/18/17 07/18/17 07:00 15:00 23:00 07:00 15:00 23:00 Output Total 325 ml Balance -325 ml Output Urine Total 325 ml Result Diagram: 07/17/17 1519 07/18/17 0342 Imaging Last Impressions Chest X-Ray 07/17/17 1348 Signed Impressions: Service Date/Time: Monday, July 17, 2017 14:54 - CONCLUSION: Minimal parenchymal changes right base suspicious for inflammatory process Larry Sharma MD FACR CT Angiography 07/17/17 0000 Signed Impressions: Service Date/Time: Monday, July 17, 2017 16:33 - CONCLUSION: 1. No CT evidence for pulmonary artery embolism. 2. Multiple groundglass nodular opacities in the left lung base with discrete apparently new solid nodule measuring up to 9 mm. Consider a followup CT examination in 3 months to document stability. Alternatively, PET/CT examination may be performed. Recommendations are based on 2017 Fleischner criteria. Javon Yo MD Objective Remarks GENERAL: This is a well-nourished, well-developed patient, in no apparent distress. CARDIOVASCULAR: Regular rate and regular rhythm without murmurs, gallops, or rubs. RESPIRATORY: Clear to auscultation. Breath sounds equal bilaterally. No wheezes , rales, or rhonchi. GASTROINTESTINAL: Abdomen soft, non-tender, nondistended. Normal, active bowel sounds MUSCULOSKELETAL: Extremities without clubbing, cyanosis, or edema. NEURO: Alert & Oriented x4 to person, place, time, situation. Moves all ext x4 Medications and IVs Inpatient Medications Acetaminophen (Tylenol) 650 mg Q4H PRN PO TEMP > 100.4; Start 07/17/17 at 18:30 Acetaminophen/ Hydrocodone Bitart (Marcell 10-325 Mg) 1 tab Q8HR PRN PO PAIN 1-10 ; Start 07/17/17 at 18:45 Bisacodyl (Dulcolax Supp) 10 mg DAILY PRN RECTAL SEVERE CONSITIPATION; Start at 18:30 Carvedilol (Coreg) 3.125 mg BID PO Last administered on 07/18/17at 10:47; Start 07/17/17 at 21:00 Clonazepam (KlonoPIN) 1 mg ONCE ONCE PO Last administered on 07/17/17at 17:55; Start 07/17/17 at 17:45; Stop 07/17/17 at 17:46; Status DC Furosemide (Lasix Inj) 20 mg DAILY IV PUSH Last administered on 07/18/17at 10:46 ; Start 07/18/17 at 09:00 Influenza Virus Vaccine (Flu (Quadrivalent) Vaccine Inj) 0.5 ml ONCE ONCE IM ; Start 07/19/17 at 10:00; Stop 07/19/17 at 10:01 Insulin Aspart (NovoLOG SUPPLEMENTAL SCALE) 1 ACHS SLIDING SCALE SQ Last administered on 07/18/17at 10:45; Start 07/17/17 at 21:00 Lactulose (Lactulose Liq) 30 ml DAILY PRN PO SEVERE CONSITIPATION; Start at 18:30 Lisinopril (Prinivil) 5 mg DAILY PO Last administered on 07/18/17at 10:47; Start 07/18/17 at 09:00 Magnesium Hydroxide (Milk Of Magnesia Liq) 30 ml Q12H PRN PO Mild constipation ; Start 07/17/17 at 18:30 Metoprolol Succinate (Toprol Xl) 25 mg DAILY PO Last administered on 07/18/17at 10:47; Start 07/18/17 at 09:00 Naloxone HCl (Narcan Inj) 0.4 mg UNSCH PRN IV PUSH SEE LABEL COMMENTS; Start at 18:30 Ondansetron HCl (Zofran Inj) 4 mg Q6H PRN IVP NAUSEA OR VOMITING; Start at 18:30 Patient Medication Teaching (Coumadin Booklet) 1 ONCE ONCE .XX ; Start at 16:00; Stop 07/18/17 at 16:01 Senna/Docusate Sodium (Mela-Colace) 1 tab BID PO Last administered on at 10:47; Start 07/17/17 at 21:00 Sennosides (Senokot) 17.2 mg Q12H PRN PO Moderate constipation; Start 07/17/17 at 18:30 Sodium Chloride (NS Flush) 2 ml BID IV FLUSH Last administered on 07/18/17at 10: 46; Start 07/17/17 at 21:00 Warfarin Sodium (Coumadin) 5 mg DAILY@1600 PO ; Start 07/18/17 at 16:00 A/P Problem List: (1) Acute exacerbation of CHF (congestive heart failure) ICD Code: I50.9 - Heart failure, unspecified Status: Acute (2) HTN (hypertension) ICD Code: I10 - Essential (primary) hypertension Status: Chronic (3) DM2 (diabetes mellitus, type 2) ICD Code: E11.9 - Type 2 diabetes mellitus without complications Status: Chronic (4) Chest pain ICD Code: R07.9 - Chest pain, unspecified Status: Acute Assessment and Plan A/P acute on chronic systolic CHF - Patient with history CHF with frequent exacerbations. BNP on admission 2674. - X-ray reviewed, minimal parenchymal changes right base suspicious for inflammatory process. - CTA reviewed, no evidence of embolism, supple groundglass nodular opacities in left lung base with discrete apparently new solid nodule measuring up to 9 mm. Consider a follow-up CT in 3 months to document stability, or alternatively PET/CT examination. - Echo from 11/01/16 with EF 15%, s/p AICD placement on 03/12/17 by -continue IV diuretics - Strict I&O's, 1500ml fluid restriction. - Monitor electrolytes. - Resume lisinopril and coreg. Chest pain, acute - Chest pain now resolved, troponin on admission 0.02 - EKG reviewed rhythm, possible left atrial enlargement, left anterior fascicular block, nonspecific ST and T-wave abnormality. - Suspect chest pain may be more related to CHF exacerbation. - serial troponin negative. - Consider consulting his capacity analyst if needed History of PE - CTA of chest negative for PE, discussed nodule finding, will need to follow up in 3 months or do PET. - On Coumadin, subtherapeutic - Resumed Coumadin, INR today pending; will bridge with subq Lovenox if INR is subtherapeutic. - consult pharmacy for coumadin dosing. DM II, chronic - Accu-Cheks with sliding scale - adjust as needed, follow trend Chronic pain - Resume [place] for pain - Will need to follow up with pain management when D/C DVT prophylaxis - Resume Coumadin Discharge Planning possible discharge home within the next 24-48 hrs if continues to improve. Nick Rojas MD Jul 18, 2017 13:46
--- NOTE | 2017-07-18 14:53 | EKG ---
Date Performed: 07/17/2017 Time Performed: 14:22:19 PTAGE: 72 years EKG: Sinus rhythm POSSIBLE LEFT ATRIAL ENLARGEMENT LEFT ANTERIOR FASCICULAR BLOCK NONSPECIFIC ST & T-WAVE ABNORMALITY ABNORMAL ECG PREVIOUS TRACING : 03/13/2017 05.48 Since previous tracing, no significant change noted DOCTOR: Tung Baires Interpretating Date/Time 07/18/2017 15:16:24
--- NOTE | 2017-07-18 14:54 | EKG ---
Date Performed: 07/17/2017 Time Performed: 21:20:37 PTAGE: 72 years EKG: Sinus rhythm POSSIBLE LEFT ATRIAL ENLARGEMENT MARKED LEFT AXIS DEVIATION NONSPECIFIC T-WAVE ABNORMALITY ABNORMAL ECG INTERPRETATION BASED ON A DEFAULT AGE OF 40 YEARS PREVIOUS TRACING 07/17/17 @14.22 Since previous tracing, no significant change noted DOCTOR: Tung Baires Interpretating Date/Time 07/18/2017 15:17:54
--- NOTE | 2017-07-18 14:58 | EKG ---
Date Performed: 07/18/2017 Time Performed: 03:05:35 PTAGE: 72 years EKG: Sinus rhythm POSSIBLE LEFT ATRIAL ENLARGEMENT LEFT ANTERIOR FASCICULAR BLOCK NONSPECIFIC ST & T-WAVE ABNORMALITY ABNORMAL ECG PREVIOUS TRACING : 07/17/2017 @ 21.20 Since previous tracing, no significant change noted DOCTOR: Tung Baires Interpretating Date/Time 07/18/2017 14:56:52
[2017-07-18] MEDS: WARFARIN SOD 5 MG TAB PO SCH (16:00)
[2017-07-18] MEDS: ACETAMINOPHEN/HYDROcodone 325 MG/10 MG TAB PO PRN ×2 (16:53→22:06)
[2017-07-18 20:01] LABS: INTERNATIONAL NORMALIZED RATIO 1.2 RATIO; PROTHROMBIN TIME - PATIENT 12.3 SEC (9.8-11.6)
[2017-07-18] MEDS ORDERED: LORazepam 0.5 MG TAB PO ONE (22:00)
[2017-07-19] VITALS (12 sets, daily range): BP systolic 114–124; BP diastolic 62–75; PULSE 70–86; RESP 18–20; TEMP 97.1–97.9; O2SAT 91–97
[2017-07-19] MEDS ORDERED: INFLUENZA VIRUS VACCINE (QUADRIVALENT) 0.5 ML SYR IM ONE (10:00)
[2017-07-19] MEDS: SODIUM CHLORIDE 0.9% FLUSH 10 ML FLUSH IV FLUSH SCH ×2 (10:17→21:18)
[2017-07-19] MEDS: INSULIN ASPART SUPPLEMENTAL SCALE SQ SCH ×4 (10:17→21:36)
[2017-07-19] MEDS: FUROSEMIDE 20 MG/2 ML VIAL IV PUSH SCH (10:18)
[2017-07-19] MEDS: ENOXAPARIN SODIUM 80 MG/0.8 ML SYRINGE SQ SCH ×2 (10:18→21:19)
[2017-07-19] MEDS: ACETAMINOPHEN/HYDROcodone 325 MG/10 MG TAB PO PRN ×2 (10:21→21:20)
[2017-07-19] MEDS: DOCUSATE SODIUM 50 MG/SENNA 8.6 MG TAB PO SCH ×2 (10:21→21:00)
[2017-07-19] MEDS: CARVEDILOL 3.125 MG TAB PO SCH ×2 (10:22→21:19)
[2017-07-19] MEDS: LISINOPRIL 5 MG TAB PO SCH (10:22)
--- NOTE | 2017-07-19 11:07 | HHI.PR ---
Subjective Remarks Patient in bed, appears in nad. Less nauseated able to eat and keep down food. No chest pain . SOB improved. Denies v/d/c. nO LE edema. Objective Vitals Vital Signs Date Time Temp Pulse Resp B/P (MAP) Pulse Ox O2 Delivery O2 Flow Rate FiO2 07/19/17 09:13 97.8 70 20 122/75 (91) 96 07/19/17 09:03 97 21 07/19/17 07:28 74 07/19/17 06:22 97.1 80 18 114/75 (88) 95 07/19/17 04:16 74 07/19/17 02:50 21 07/19/17 00:04 73 07/18/17 20:10 89 07/18/17 20:00 96.7 79 18 108/66 (80) 99 07/18/17 15:53 88 I/O 07/18/17 07/18/17 07/18/17 07/19/17 07/19/17 07/19/17 07:00 15:00 23:00 07:00 15:00 23:00 Intake Total 2440 ml Output Total 325 ml 750 ml 750 ml 425 ml Balance -325 ml -750 ml 1690 ml -425 ml Intake Oral 2440 ml Output Urine Total 325 ml 750 ml 750 ml 425 ml # Voids 2 # Bowel Movements 1 Result Diagram: 07/17/17 1519 07/18/17 0342 Imaging Last Impressions Chest X-Ray 07/17/17 1348 Signed Impressions: Service Date/Time: Monday, July 17, 2017 14:54 - CONCLUSION: Minimal parenchymal changes right base suspicious for inflammatory process Larry Sharma MD FACR CT Angiography 07/17/17 0000 Signed Impressions: Service Date/Time: Monday, July 17, 2017 16:33 - CONCLUSION: 1. No CT evidence for pulmonary artery embolism. 2. Multiple groundglass nodular opacities in the left lung base with discrete apparently new solid nodule measuring up to 9 mm. Consider a followup CT examination in 3 months to document stability. Alternatively, PET/CT examination may be performed. Recommendations are based on 2017 Fleischner criteria. Javon Yo MD Objective Remarks GENERAL: This is a well-nourished, well-developed patient, in no apparent distress. CARDIOVASCULAR: Regular rate and regular rhythm without murmurs, gallops, or rubs. RESPIRATORY: Clear to auscultation. Breath sounds equal bilaterally. No wheezes , rales, or rhonchi. GASTROINTESTINAL: Abdomen soft, non-tender, nondistended. Normal, active bowel sounds MUSCULOSKELETAL: Extremities without clubbing, cyanosis, or edema. NEURO: Alert & Oriented x4 to person, place, time, situation. Moves all ext x4 A/P Problem List: (1) Acute exacerbation of CHF (congestive heart failure) ICD Code: I50.9 - Heart failure, unspecified Status: Acute (2) HTN (hypertension) ICD Code: I10 - Essential (primary) hypertension Status: Chronic (3) DM2 (diabetes mellitus, type 2) ICD Code: E11.9 - Type 2 diabetes mellitus without complications Status: Chronic (4) Chest pain ICD Code: R07.9 - Chest pain, unspecified Status: Acute Plan: Acute on chronic systolic CHF - Patient with history CHF with frequent exacerbations. BNP on admission 2674. - X-ray reviewed, minimal parenchymal changes right base suspicious for inflammatory process. - CTA reviewed, no evidence of embolism, supple groundglass nodular opacities in left lung base with discrete apparently new solid nodule measuring up to 9 mm. Consider a follow-up CT in 3 months to document stability, or alternatively PET/CT examination. - Echo from 11/01/16 with EF 15%, s/p AICD placement on 03/12/17 by -continue IV diuretics - Strict I&O's, 1500ml fluid restriction. - Monitor electrolytes. - Resume lisinopril and coreg. Chest pain, acute - Chest pain now resolved, troponin on admission 0.02 - EKG reviewed rhythm, possible left atrial enlargement, left anterior fascicular block, nonspecific ST and T-wave abnormality. - Suspect chest pain may be more related to CHF exacerbation. - serial troponin negative. - Consider consulting his professional development manager if needed History of PE - CTA of chest negative for PE, discussed nodule finding, will need to follow up in 3 months or do PET. - On Coumadin, subtherapeutic - Resumed Coumadin, INR today pending; will bridge with subq Lovenox if INR is subtherapeutic, monitor until target 2-3, bridge with lovenox. - consult pharmacy for coumadin dosing. DM II, chronic - Accu-Cheks with sliding scale - adjust as needed, follow trend Chronic pain - Resume [place] for pain - Will need to follow up with pain management when D/C DVT prophylaxis - Resume Coumadin, noniotr INR until at target range of 2-3 Discharge Planning DC sue INR at target ( 2-3), now bridging with lovenox. Discussed with the patient, nurse. Rachel Samuel MD Jul 19, 2017 11:07
[2017-07-19 12:59] LABS: INTERNATIONAL NORMALIZED RATIO 1.3 RATIO; PROTHROMBIN TIME - PATIENT 12.8 SEC (9.8-11.6)
[2017-07-19] MEDS: SPIRONOLACTONE 25 MG TAB PO SCH (13:52)
[2017-07-19] MEDS: clonazePAM 1 MG TAB PO PRN (15:02)
[2017-07-19] MEDS: WARFARIN SOD 5 MG TAB PO SCH (15:57)
[2017-07-20] VITALS (10 sets, daily range): BP systolic 95–118; BP diastolic 53–72; PULSE 74–84; RESP 18–20; TEMP 97–98.2; O2SAT 97–99
[2017-07-20] MEDS: LISINOPRIL 5 MG TAB PO SCH (09:28)
[2017-07-20] MEDS: FUROSEMIDE 20 MG/2 ML VIAL IV PUSH SCH (09:28)
[2017-07-20] MEDS: SODIUM CHLORIDE 0.9% FLUSH 10 ML FLUSH IV FLUSH SCH ×2 (09:28→20:49)
[2017-07-20] MEDS: CARVEDILOL 3.125 MG TAB PO SCH ×2 (09:29→20:48)
[2017-07-20] MEDS: DOCUSATE SODIUM 50 MG/SENNA 8.6 MG TAB PO SCH ×2 (09:29→20:51)
[2017-07-20] MEDS: ENOXAPARIN SODIUM 80 MG/0.8 ML SYRINGE SQ SCH ×2 (09:29→20:49)
[2017-07-20] MEDS: SPIRONOLACTONE 25 MG TAB PO SCH (09:29)
[2017-07-20] MEDS: INSULIN ASPART SUPPLEMENTAL SCALE SQ SCH ×4 (09:30→20:49)
[2017-07-20 09:31] LABS: AUTOMATED NEUTROPHIL # 2.5 TH/MM3 (1.8-7.7); BASOPHIL # 0.1 TH/MM3 (0-0.2); BASOPHIL % 1.3 % (0.0-2.0); EOSINOPHIL # 0.3 TH/MM3 (0-0.4); EOSINOPHIL % 4.9 % (0.0-4.0); HEMATOCRIT 42.9 % (39.0-51.0); HEMOGLOBIN 14.2 GM/DL (13.0-17.0); LYMPH % 35.8 % (9.0-44.0); LYMPHOCYTE # 1.8 TH/MM3 (1.0-4.8); MEAN CELL VOLUME 87.8 FL (80.0-100.0); MEAN CORPUSCULAR HGB CONC 33.1 % (32.0-36.0); MEAN PLATELET VOLUME 8.7 FL (7.0-11.0); MONO % 8.4 % (0.0-8.0); MONOCYTE # 0.4 TH/MM3 (0-0.9); NEUT % 49.6 % (16.0-70.0); PLATELET COUNT 228 TH/MM3 (150-450); RED BLOOD COUNT 4.89 MIL/MM3 (4.50-5.90); RED CELL DISTRIBUTION WIDTH 15.4 % (11.6-17.2); WHITE BLOOD COUNT 5.1 TH/MM3 (4.0-11.0)
[2017-07-20 09:38] LABS: INTERNATIONAL NORMALIZED RATIO 1.2 RATIO; PROTHROMBIN TIME - PATIENT 11.9 SEC (9.8-11.6)
[2017-07-20 09:45] LABS: BICARBONATE 24.2 MEQ/L (21.0-32.0); CALCIUM 9.2 MG/DL (8.5-10.1); CREATININE 1.15 MG/DL (0.60-1.30)
[2017-07-20] MEDS: clonazePAM 1 MG TAB PO PRN (11:50)
--- NOTE | 2017-07-20 13:49 | HHI.PR ---
Subjective Remarks In the bed says he is with some sob, however he is not complaints with fluid intake. Drinking Gatorade. Says she is thirsty. INR is still subtherapeutic patient says she is not able to do Lovenox by himself as he did try before , he did good in the hospital injecting himself but was not compliant at home . Objective Vitals Vital Signs Date Time Temp Pulse Resp B/P (MAP) Pulse Ox O2 Delivery O2 Flow Rate FiO2 07/20/17 12:00 97.0 77 19 110/60 (77) 98 07/20/17 07:48 97.6 76 20 106/61 (76) 97 07/20/17 04:00 75 07/20/17 03:03 97.8 80 18 118/72 (87) 98 07/20/17 00:00 80 07/19/17 23:16 97.8 85 20 124/62 (82) 97 07/19/17 20:00 80 07/19/17 19:33 97.8 86 18 116/67 (83) 91 07/19/17 17:16 78 07/19/17 17:14 97.9 84 20 120/66 (84) 96 I/O 07/19/17 07/19/17 07/19/17 07/20/17 07/20/17 07/20/17 07:00 15:00 23:00 07:00 15:00 23:00 Intake Total 2440 ml 720 ml Output Total 750 ml 1375 ml Balance 1690 ml -1375 ml 720 ml Intake Oral 2440 ml 720 ml Output Urine Total 750 ml 1375 ml # Voids 3 # Bowel Movements 1 Result Diagram: 07/20/17 0835 07/20/17 0835 Objective Remarks GENERAL: This is a well-nourished, well-developed patient, in no apparent distress. CARDIOVASCULAR: Regular rate and regular rhythm without murmurs, gallops, or rubs. RESPIRATORY: Clear to auscultation. Breath sounds equal bilaterally. No wheezes , rales, or rhonchi. GASTROINTESTINAL: Abdomen soft, non-tender, nondistended. Normal, active bowel sounds MUSCULOSKELETAL: Extremities without clubbing, cyanosis, or edema. NEURO: Alert & Oriented x4 to person, place, time, situation. Moves all ext x4 A/P Problem List: (1) Acute exacerbation of CHF (congestive heart failure) ICD Code: I50.9 - Heart failure, unspecified Status: Acute (2) HTN (hypertension) ICD Code: I10 - Essential (primary) hypertension Status: Chronic (3) DM2 (diabetes mellitus, type 2) ICD Code: E11.9 - Type 2 diabetes mellitus without complications Status: Chronic (4) Chest pain ICD Code: R07.9 - Chest pain, unspecified Status: Acute Rachel Samuel MD Jul 20, 2017 13:49
[2017-07-20] MEDS ORDERED: WARFARIN SOD 2 MG TAB PO ONE (16:00)
[2017-07-20] MEDS: WARFARIN SOD 5 MG TAB PO SCH (17:30)
[2017-07-20] MEDS: ACETAMINOPHEN/HYDROcodone 325 MG/10 MG TAB PO PRN (20:00)
[2017-07-21] VITALS (7 sets, daily range): BP systolic 107–114; BP diastolic 62–83; PULSE 77–82; RESP 16–18; TEMP 97.4–98; O2SAT 95–99
[2017-07-21] MEDS: clonazePAM 1 MG TAB PO PRN ×2 (00:45→23:51)
[2017-07-21 02:09] LABS: CALCIUM 9.1 MG/DL (8.5-10.1); CREATININE 1.31 MG/DL (0.60-1.30); MAGNESIUM 2.1 MG/DL (1.5-2.5)
[2017-07-21 07:01] LABS: INTERNATIONAL NORMALIZED RATIO 1.2 RATIO; PROTHROMBIN TIME - PATIENT 12.6 SEC (9.8-11.6)
[2017-07-21] MEDS: LISINOPRIL 5 MG TAB PO SCH (08:49)
[2017-07-21] MEDS: CARVEDILOL 3.125 MG TAB PO SCH ×2 (08:50→20:38)
[2017-07-21] MEDS: DOCUSATE SODIUM 50 MG/SENNA 8.6 MG TAB PO SCH ×2 (08:50→20:38)
[2017-07-21] MEDS: SPIRONOLACTONE 25 MG TAB PO SCH (08:50)
[2017-07-21] MEDS: FUROSEMIDE 20 MG/2 ML VIAL IV PUSH SCH (08:51)
[2017-07-21] MEDS: INSULIN ASPART SUPPLEMENTAL SCALE SQ SCH ×4 (09:51→23:14)
[2017-07-21] MEDS: SODIUM CHLORIDE 0.9% FLUSH 10 ML FLUSH IV FLUSH SCH ×2 (09:52→20:41)
[2017-07-21] MEDS: ENOXAPARIN SODIUM 80 MG/0.8 ML SYRINGE SQ SCH ×2 (09:59→20:38)
--- NOTE | 2017-07-21 11:56 | HHI.PR ---
Subjective Remarks In bed appears in nad. Says she wants regular diet he is also not compliant with fluids. No fever or chills .SOB improved however. No LE edema. Objective Vitals Vital Signs Date Time Temp Pulse Resp B/P (MAP) Pulse Ox O2 Delivery O2 Flow Rate FiO2 07/21/17 11:48 97.4 82 18 114/83 (93) 97 07/21/17 08:16 98 07/21/17 08:09 98.0 81 16 112/68 (83) 98 07/21/17 02:54 97.8 77 18 107/62 (77) 99 07/20/17 21:02 18 07/20/17 20:47 98 07/20/17 20:26 84 18 108/55 (72) 99 07/20/17 16:00 77 07/20/17 15:45 98.2 78 19 95/53 (67) 98 07/20/17 12:00 97.0 77 19 110/60 (77) 98 07/20/17 12:00 75 I/O 07/20/17 07/20/17 07/20/17 07/21/17 07/21/17 07/21/17 07:00 15:00 23:00 07:00 15:00 23:00 Intake Total 720 ml Output Total 2200 ml 1200 ml Balance 720 ml -2200 ml -1200 ml Intake Oral 720 ml Output Urine Total 2200 ml 1200 ml # Bowel Movements 0 Result Diagram: 07/20/17 0835 07/21/17 0129 Imaging Last Impressions Chest X-Ray 07/17/17 1348 Signed Impressions: Service Date/Time: Monday, July 17, 2017 14:54 - CONCLUSION: Minimal parenchymal changes right base suspicious for inflammatory process Larry Sharma MD FACR CT Angiography 07/17/17 0000 Signed Impressions: Service Date/Time: Monday, July 17, 2017 16:33 - CONCLUSION: 1. No CT evidence for pulmonary artery embolism. 2. Multiple groundglass nodular opacities in the left lung base with discrete apparently new solid nodule measuring up to 9 mm. Consider a followup CT examination in 3 months to document stability. Alternatively, PET/CT examination may be performed. Recommendations are based on 2017 Fleischner criteria. Javon Yo MD Objective Remarks GENERAL: This is a well-nourished, well-developed patient, in no apparent distress. CARDIOVASCULAR: Regular rate and regular rhythm without murmurs, gallops, or rubs. RESPIRATORY: Clear to auscultation. Breath sounds equal bilaterally. No wheezes , rales, or rhonchi. GASTROINTESTINAL: Abdomen soft, non-tender, nondistended. Normal, active bowel sounds MUSCULOSKELETAL: Extremities without clubbing, cyanosis, or edema. NEURO: Alert & Oriented x4 to person, place, time, situation. Moves all ext x4 A/P Problem List: (1) Acute exacerbation of CHF (congestive heart failure) ICD Code: I50.9 - Heart failure, unspecified Status: Acute (2) HTN (hypertension) ICD Code: I10 - Essential (primary) hypertension Status: Chronic (3) DM2 (diabetes mellitus, type 2) ICD Code: E11.9 - Type 2 diabetes mellitus without complications Status: Chronic (4) Chest pain ICD Code: R07.9 - Chest pain, unspecified Status: Acute Assessment and Plan (1) Acute exacerbation of CHF (congestive heart failure) ICD Code: I50.9 - Heart failure, unspecified Status: Acute (2) HTN (hypertension) ICD Code: I10 - Essential (primary) hypertension Status: Chronic (3) DM2 (diabetes mellitus, type 2) ICD Code: E11.9 - Type 2 diabetes mellitus without complications Status: Chronic (4) Chest pain ICD Code: R07.9 - Chest pain, unspecified Status: Acute Acute on chronic systolic CHF - Patient with history CHF with frequent exacerbations. BNP on admission 2674. - X-ray reviewed, minimal parenchymal changes right base suspicious for inflammatory process. - CTA reviewed, no evidence of embolism, supple groundglass nodular opacities in left lung base with discrete apparently new solid nodule measuring up to 9 mm. Consider a follow-up CT in 3 months to document stability, or alternatively PET/CT examination. - Echo from 11/01/16 with EF 15%, s/p AICD placement on 03/12/17 by -continue IV diuretics - Strict I&O's, 1500ml fluid restriction. - Monitor electrolytes. - Resume lisinopril and coreg. Chest pain, acute - Chest pain now resolved, troponin on admission 0.02 - EKG reviewed rhythm, possible left atrial enlargement, left anterior fascicular block, nonspecific ST and T-wave abnormality. - Suspect chest pain may be more related to CHF exacerbation. - serial troponin negative. - Consider consulting his selling manager if needed History of PE - CTA of chest negative for PE, discussed nodule finding, will need to follow up in 3 months or do PET. - On Coumadin, subtherapeutic - Resumed Coumadin, INR today pending; will bridge with subq Lovenox if INR is subtherapeutic, monitor until target 2-3, bridge with lovenox. - consult pharmacy for coumadin dosing. Patient says he was not doing well at home with self administering lovenox and doesn't feel comfortable to go home on it. DM II, chronic - Accu-Cheks with sliding scale - adjust as needed, follow trend Chronic pain - Resume [place] for pain - Will need to follow up with pain management when D/C DVT prophylaxis - Resume Coumadin, noniotr INR until at target range of 2-3 Discharge Planning DC sue INR at target ( 2-3), now bridging with lovenox. Rachel Samuel MD Jul 21, 2017 11:56
[2017-07-21] MEDS ORDERED: WARFARIN SOD 3 MG TAB PO ONE (16:00)
[2017-07-21] MEDS ORDERED: WARFARIN SOD 1 MG TAB PO ONE (16:00)
[2017-07-21] MEDS: WARFARIN SOD 5 MG TAB PO SCH (16:53)
[2017-07-21] MEDS: ACETAMINOPHEN/HYDROcodone 325 MG/10 MG TAB PO PRN (20:39)
[2017-07-22] VITALS: BP 114/57; PULSE 75; RESP 20; TEMP 97.6; O2SAT 95
[2017-07-22 07:53] VITALS: BP 100/58; PULSE 80; RESP 16; TEMP 97.8; O2SAT 95; O2SAT 98
[2017-07-22 08:00] VITALS: PULSE 82
[2017-07-22] MEDS: INSULIN ASPART SUPPLEMENTAL SCALE SQ SCH ×4 (08:00→21:31)
[2017-07-22] MEDS: SODIUM CHLORIDE 0.9% FLUSH 10 ML FLUSH IV FLUSH SCH ×2 (09:00→21:33)
[2017-07-22] MEDS ORDERED: WARFARIN SOD 5 MG TAB PO ONE (09:10)
[2017-07-22 10:55] LABS: INTERNATIONAL NORMALIZED RATIO 1.3 RATIO; PROTHROMBIN TIME - PATIENT 12.8 SEC (9.8-11.6)
[2017-07-22] MEDS: CARVEDILOL 3.125 MG TAB PO SCH ×2 (11:39→21:31)
[2017-07-22] MEDS: LISINOPRIL 5 MG TAB PO SCH (11:39)
[2017-07-22] MEDS: DOCUSATE SODIUM 50 MG/SENNA 8.6 MG TAB PO SCH ×2 (11:39→21:00)
[2017-07-22] MEDS: FUROSEMIDE 20 MG/2 ML VIAL IV PUSH SCH (11:40)
[2017-07-22] MEDS: ENOXAPARIN SODIUM 80 MG/0.8 ML SYRINGE SQ SCH ×2 (11:42→21:33)
[2017-07-22] MEDS: ACETAMINOPHEN/HYDROcodone 325 MG/10 MG TAB PO PRN ×2 (11:56→21:31)
--- NOTE | 2017-07-22 13:08 | HHI.PR ---
Subjective Remarks Seen earlier today. Complaints of some shortness of breath in the morning however he feels much better now. Satting well on room air. Had some nausea in the morning, however able to tolerate food. Denies vomiting diarrhea or constipation. Objective Vitals Vital Signs Date Time Temp Pulse Resp B/P (MAP) Pulse Ox O2 Delivery O2 Flow Rate FiO2 07/22/17 07:53 97.8 80 16 100/58 (72) 95 07/22/17 07:53 98 21 07/22/17 00:00 97.6 75 20 114/57 (76) 95 07/21/17 23:08 18 07/21/17 18:20 79 07/21/17 16:29 98.0 80 18 113/64 (80) 95 I/O 07/21/17 07/21/17 07/21/17 07/22/17 07/22/17 07/22/17 07:00 15:00 23:00 07:00 15:00 23:00 Intake Total 240 ml 150 ml Output Total 1200 ml Balance -1200 ml 240 ml 150 ml Intake Oral 240 ml 150 ml Output Urine Total 1200 ml Result Diagram: 07/20/17 0835 07/21/17 0129 Imaging Last Impressions Chest X-Ray 07/17/17 1348 Signed Impressions: Service Date/Time: Monday, July 17, 2017 14:54 - CONCLUSION: Minimal parenchymal changes right base suspicious for inflammatory process Larry Sharma MD FACR CT Angiography 07/17/17 0000 Signed Impressions: Service Date/Time: Monday, July 17, 2017 16:33 - CONCLUSION: 1. No CT evidence for pulmonary artery embolism. 2. Multiple groundglass nodular opacities in the left lung base with discrete apparently new solid nodule measuring up to 9 mm. Consider a followup CT examination in 3 months to document stability. Alternatively, PET/CT examination may be performed. Recommendations are based on 2017 Fleischner criteria. Javon Yo MD Objective Remarks GENERAL: This is a well-nourished, well-developed patient, in no apparent distress. CARDIOVASCULAR: Regular rate and regular rhythm without murmurs, gallops, or rubs. RESPIRATORY: Clear to auscultation. Breath sounds equal bilaterally. No wheezes , rales, or rhonchi. GASTROINTESTINAL: Abdomen soft, non-tender, nondistended. Normal, active bowel sounds MUSCULOSKELETAL: Extremities without clubbing, cyanosis, or edema. NEURO: Alert & Oriented x4 to person, place, time, situation. Moves all ext x4 A/P Problem List: (1) Acute exacerbation of CHF (congestive heart failure) ICD Code: I50.9 - Heart failure, unspecified Status: Acute (2) HTN (hypertension) ICD Code: I10 - Essential (primary) hypertension Status: Chronic (3) DM2 (diabetes mellitus, type 2) ICD Code: E11.9 - Type 2 diabetes mellitus without complications Status: Chronic (4) Chest pain ICD Code: R07.9 - Chest pain, unspecified Status: Acute Assessment and Plan Acute on chronic systolic CHF - Patient with history CHF with frequent exacerbations. BNP on admission 2674. - X-ray reviewed, minimal parenchymal changes right base suspicious for inflammatory process. - CTA reviewed, no evidence of embolism, supple groundglass nodular opacities in left lung base with discrete apparently new solid nodule measuring up to 9 mm. Consider a follow-up CT in 3 months to document stability, or alternatively PET/CT examination. - Echo from 11/01/16 with EF 15%, s/p AICD placement on 03/12/17 by -continue IV diuretics - Strict I&O's, 1500ml fluid restriction. - Monitor electrolytes. - Resume lisinopril and coreg. Chest pain, acute - Chest pain now resolved, troponin on admission 0.02 - EKG reviewed rhythm, possible left atrial enlargement, left anterior fascicular block, nonspecific ST and T-wave abnormality. - Suspect chest pain may be more related to CHF exacerbation. - serial troponin negative. - Consider consulting his paper rewinder operator if needed History of PE - CTA of chest negative for PE, discussed nodule finding, will need to follow up in 3 months or do PET. - On Coumadin, subtherapeutic - Resumed Coumadin, INR today pending; will bridge with subq Lovenox if INR is subtherapeutic, monitor until target 2-3, bridge with lovenox. - consult pharmacy for coumadin dosing. Patient says he was not doing well at home with self administering lovenox and doesn't feel comfortable to go home on it. DM II, chronic - Accu-Cheks with sliding scale - adjust as needed, follow trend Chronic pain - Resume [place] for pain - Will need to follow up with pain management when D/C DVT prophylaxis - Resume Coumadin, noniotr INR until at target range of 2-3 Discharge Planning DC sue INR at target ( 2-3), now bridging with lovenox, pharmacy also following. Case management consulted for discharge plan. Rachel Samuel MD Jul 22, 2017 13:08
[2017-07-22] MEDS: SPIRONOLACTONE 25 MG TAB PO SCH (13:52)
[2017-07-22 15:38] VITALS: BP 107/61; PULSE 80; RESP 16; TEMP 98.1; O2SAT 95
[2017-07-22] MEDS: WARFARIN SOD 5 MG TAB PO SCH (18:41)
[2017-07-22 20:00] VITALS: PULSE 82
[2017-07-22 21:06] VITALS: BP 116/64; PULSE 80; RESP 18; TEMP 98.2; O2SAT 95
[2017-07-23] VITALS (10 sets, daily range): BP systolic 99–128; BP diastolic 56–72; PULSE 73–83; RESP 12–20; TEMP 95.1–98.4; O2SAT 93–98
[2017-07-23] MEDS: clonazePAM 1 MG TAB PO PRN ×2 (03:29→22:04)
[2017-07-23 07:32] LABS: INTERNATIONAL NORMALIZED RATIO 1.4 RATIO; PROTHROMBIN TIME - PATIENT 14.2 SEC (9.8-11.6)
[2017-07-23 07:44] LABS: AUTOMATED NEUTROPHIL # 2.9 TH/MM3 (1.8-7.7); BASOPHIL # 0.1 TH/MM3 (0-0.2); BASOPHIL % 1.3 % (0.0-2.0); EOSINOPHIL # 0.2 TH/MM3 (0-0.4); EOSINOPHIL % 4.3 % (0.0-4.0); HEMATOCRIT 44.6 % (39.0-51.0); LYMPH % 30.8 % (9.0-44.0); LYMPHOCYTE # 1.7 TH/MM3 (1.0-4.8); MEAN CELL VOLUME 86.7 FL (80.0-100.0); MEAN CORPUSCULAR HEMOGLOBIN 29.1 PG (27.0-34.0); MEAN CORPUSCULAR HGB CONC 33.6 % (32.0-36.0); MEAN PLATELET VOLUME 8.2 FL (7.0-11.0); MONO % 11.2 % (0.0-8.0); MONOCYTE # 0.6 TH/MM3 (0-0.9); NEUT % 52.4 % (16.0-70.0); PLATELET COUNT 253 TH/MM3 (150-450); RED BLOOD COUNT 5.14 MIL/MM3 (4.50-5.90); RED CELL DISTRIBUTION WIDTH 15.3 % (11.6-17.2); WHITE BLOOD COUNT 5.6 TH/MM3 (4.0-11.0)
[2017-07-23 07:58] LABS: BICARBONATE 23.4 MEQ/L (21.0-32.0); CALCIUM 9.6 MG/DL (8.5-10.1); CREATININE 1.12 MG/DL (0.60-1.30)
[2017-07-23 07:59] LABS: PHOSPHORUS 2.8 MG/DL (2.5-4.9)
[2017-07-23] MEDS: INSULIN ASPART SUPPLEMENTAL SCALE SQ SCH ×4 (09:37→21:57)
[2017-07-23] MEDS: ENOXAPARIN SODIUM 80 MG/0.8 ML SYRINGE SQ SCH ×2 (09:38→22:05)
[2017-07-23] MEDS: FUROSEMIDE 20 MG/2 ML VIAL IV PUSH SCH (09:38)
[2017-07-23] MEDS: SPIRONOLACTONE 25 MG TAB PO SCH (09:39)
[2017-07-23] MEDS: DOCUSATE SODIUM 50 MG/SENNA 8.6 MG TAB PO SCH ×2 (09:39→21:00)
[2017-07-23] MEDS: LISINOPRIL 5 MG TAB PO SCH (09:39)
[2017-07-23] MEDS: CARVEDILOL 3.125 MG TAB PO SCH ×2 (09:39→21:57)
[2017-07-23] MEDS: SODIUM CHLORIDE 0.9% FLUSH 10 ML FLUSH IV FLUSH SCH ×2 (09:42→21:58)
--- NOTE | 2017-07-23 14:54 | HHI.PR ---
Subjective Remarks Patient in bed says he is breathing better. SOB at baseline. No LE edema. Denies cp, sob, n/v/d/c. Objective Vitals Vital Signs Date Time Temp Pulse Resp B/P (MAP) Pulse Ox O2 Delivery O2 Flow Rate FiO2 07/23/17 13:04 95.1 73 18 103/61 (75) 96 07/23/17 07:58 95.2 73 12 112/72 (85) 98 07/23/17 04:00 98.0 79 20 99/56 (70) 96 07/23/17 04:00 77 07/23/17 00:00 79 07/23/17 00:00 97.8 76 20 105/57 (73) 95 07/22/17 21:06 98.2 80 18 116/64 (81) 95 07/22/17 20:00 82 07/22/17 15:38 98.1 80 16 107/61 (76) 95 I/O 07/22/17 07/22/17 07/22/17 07/23/17 07/23/17 07/23/17 07:00 15:00 23:00 07:00 15:00 23:00 Intake Total 150 ml 1200 ml 320 ml Output Total 900 ml 1350 ml Balance 150 ml -900 ml 1200 ml -1030 ml Intake Oral 150 ml 1200 ml 320 ml Output Urine Total 900 ml 1350 ml Stool Total 0 ml # Voids 5 # Bowel Movements 1 Result Diagram: 07/23/17 0700 07/23/17 0700 Imaging Last Impressions Chest X-Ray 07/17/17 1348 Signed Impressions: Service Date/Time: Monday, July 17, 2017 14:54 - CONCLUSION: Minimal parenchymal changes right base suspicious for inflammatory process Larry Sharma MD FACR CT Angiography 07/17/17 0000 Signed Impressions: Service Date/Time: Monday, July 17, 2017 16:33 - CONCLUSION: 1. No CT evidence for pulmonary artery embolism. 2. Multiple groundglass nodular opacities in the left lung base with discrete apparently new solid nodule measuring up to 9 mm. Consider a followup CT examination in 3 months to document stability. Alternatively, PET/CT examination may be performed. Recommendations are based on 2017 Fleischner criteria. Javon Yo MD Objective Remarks GENERAL: This is a well-nourished, well-developed patient, in no apparent distress. CARDIOVASCULAR: Regular rate and regular rhythm without murmurs, gallops, or rubs. RESPIRATORY: Clear to auscultation. Breath sounds equal bilaterally. No wheezes , rales, or rhonchi. GASTROINTESTINAL: Abdomen soft, non-tender, nondistended. Normal, active bowel sounds MUSCULOSKELETAL: Extremities without clubbing, cyanosis, or edema. NEURO: Alert & Oriented x4 to person, place, time, situation. Moves all ext x4 A/P Problem List: (1) Acute exacerbation of CHF (congestive heart failure) ICD Code: I50.9 - Heart failure, unspecified Status: Acute (2) HTN (hypertension) ICD Code: I10 - Essential (primary) hypertension Status: Chronic (3) DM2 (diabetes mellitus, type 2) ICD Code: E11.9 - Type 2 diabetes mellitus without complications Status: Chronic (4) Chest pain ICD Code: R07.9 - Chest pain, unspecified Status: Acute Assessment and Plan Acute on chronic systolic CHF - Patient with history CHF with frequent exacerbations. BNP on admission 2674. - X-ray reviewed, minimal parenchymal changes right base suspicious for inflammatory process. - CTA reviewed, no evidence of embolism, supple groundglass nodular opacities in left lung base with discrete apparently new solid nodule measuring up to 9 mm. Consider a follow-up CT in 3 months to document stability, or alternatively PET/CT examination. - Echo from 11/01/16 with EF 15%, s/p AICD placement on 03/12/17 by -continue IV diuretics - Strict I&O's, 1500ml fluid restriction. - Monitor electrolytes. - Resume lisinopril and coreg. Chest pain, acute - Chest pain now resolved, troponin on admission 0.02 - EKG reviewed rhythm, possible left atrial enlargement, left anterior fascicular block, nonspecific ST and T-wave abnormality. - Suspect chest pain may be more related to CHF exacerbation. - serial troponin negative. - Consider consulting his psychotherapist counselor if needed History of PE - CTA of chest negative for PE, discussed nodule finding, will need to follow up in 3 months or do PET. - On Coumadin, subtherapeutic - Resumed Coumadin, INR today pending; will bridge with subq Lovenox if INR is subtherapeutic, monitor until target 2-3, bridge with lovenox. - consult pharmacy for coumadin dosing. Patient says he was not doing well at home with self administering lovenox and doesn't feel comfortable to go home on it. DM II, chronic - Accu-Cheks with sliding scale - adjust as needed, follow trend Chronic pain - Resume [place] for pain - Will need to follow up with pain management when D/C DVT prophylaxis - Resume Coumadin, noniotr INR until at target range of 2-3 Discharge Planning DC sue INR at target ( 2-3), now bridging with lovenox, pharmacy also following. Case management consulted for discharge plan. Rachel Samuel MD Jul 23, 2017 14:54
[2017-07-23] MEDS ORDERED: WARFARIN SOD 7.5 MG TAB PO ONE (16:00)
[2017-07-23] MEDS: WARFARIN SOD 5 MG TAB PO SCH (17:43)
[2017-07-23] MEDS: ACETAMINOPHEN/HYDROcodone 325 MG/10 MG TAB PO PRN (17:46)
[2017-07-24] VITALS (13 sets, daily range): BP systolic 103–143; BP diastolic 51–74; PULSE 68–91; RESP 15–18; TEMP 97.8–98.7; O2SAT 95–100
[2017-07-24 06:14] LABS: INTERNATIONAL NORMALIZED RATIO 1.8 RATIO; PROTHROMBIN TIME - PATIENT 18.1 SEC (9.8-11.6)
[2017-07-24] MEDS: INSULIN ASPART SUPPLEMENTAL SCALE SQ SCH ×4 (08:00→23:12)
[2017-07-24] MEDS: CARVEDILOL 3.125 MG TAB PO SCH ×2 (08:39→23:10)
[2017-07-24] MEDS: ENOXAPARIN SODIUM 80 MG/0.8 ML SYRINGE SQ SCH ×2 (08:39→23:11)
[2017-07-24] MEDS: LISINOPRIL 5 MG TAB PO SCH (08:39)
[2017-07-24] MEDS: SPIRONOLACTONE 25 MG TAB PO SCH (08:39)
[2017-07-24] MEDS: SODIUM CHLORIDE 0.9% FLUSH 10 ML FLUSH IV FLUSH SCH ×2 (08:40→23:10)
[2017-07-24] MEDS: FUROSEMIDE 20 MG/2 ML VIAL IV PUSH SCH (08:40)
[2017-07-24] MEDS: DOCUSATE SODIUM 50 MG/SENNA 8.6 MG TAB PO SCH ×2 (08:40→21:00)
[2017-07-24] MEDS: ACETAMINOPHEN/HYDROcodone 325 MG/10 MG TAB PO PRN ×2 (08:42→23:11)
--- NOTE | 2017-07-24 09:45 | HHI.PR ---
Subjective Remarks In the bed feels better. No n/v/d/c. Denies chest pain. SOB at baseline. No LE edema. Wants regular food. Wants to go home however patient says he can't self administer lovenox. Objective Vitals Vital Signs Date Time Temp Pulse Resp B/P (MAP) Pulse Ox O2 Delivery O2 Flow Rate FiO2 07/24/17 08:00 98.7 77 18 143/74 (97) 97 07/24/17 04:37 98.3 74 15 103/57 (72) 95 07/24/17 04:06 77 07/24/17 02:59 21 07/24/17 01:00 98.5 75 15 106/62 (77) 96 07/23/17 23:59 73 07/23/17 20:20 98.4 81 16 120/68 (85) 97 07/23/17 20:14 82 07/23/17 18:46 20 07/23/17 17:13 96.0 83 128/68 (88) 96 07/23/17 13:04 95.1 73 18 103/61 (75) 96 07/23/17 10:40 93 21 I/O 07/23/17 07/23/17 07/23/17 07/24/17 07/24/17 07/24/17 07:00 15:00 23:00 07:00 15:00 23:00 Intake Total 320 ml 1200 ml 500 ml Output Total 1350 ml 800 ml 350 ml Balance -1030 ml 400 ml 150 ml Intake Oral 320 ml 1200 ml 500 ml Output Urine Total 1350 ml 800 ml 350 ml Stool Total 0 ml # Voids 2 # Bowel Movements 1 Result Diagram: 07/23/17 0700 07/23/17 0700 Imaging Last Impressions Chest X-Ray 07/17/17 1348 Signed Impressions: Service Date/Time: Monday, July 17, 2017 14:54 - CONCLUSION: Minimal parenchymal changes right base suspicious for inflammatory process Larry Sharma MD FACR CT Angiography 07/17/17 0000 Signed Impressions: Service Date/Time: Monday, July 17, 2017 16:33 - CONCLUSION: 1. No CT evidence for pulmonary artery embolism. 2. Multiple groundglass nodular opacities in the left lung base with discrete apparently new solid nodule measuring up to 9 mm. Consider a followup CT examination in 3 months to document stability. Alternatively, PET/CT examination may be performed. Recommendations are based on 2017 Fleischner criteria. Javon Yo MD Objective Remarks GENERAL: This is a well-nourished, well-developed patient, in no apparent distress. CARDIOVASCULAR: Regular rate and regular rhythm without murmurs, gallops, or rubs. RESPIRATORY: Clear to auscultation. Breath sounds equal bilaterally. No wheezes , rales, or rhonchi. GASTROINTESTINAL: Abdomen soft, non-tender, nondistended. Normal, active bowel sounds MUSCULOSKELETAL: Extremities without clubbing, cyanosis, or edema. NEURO: Alert & Oriented x4 to person, place, time, situation. Moves all ext x4 A/P Problem List: (1) Acute exacerbation of CHF (congestive heart failure) ICD Code: I50.9 - Heart failure, unspecified Status: Acute (2) HTN (hypertension) ICD Code: I10 - Essential (primary) hypertension Status: Chronic (3) DM2 (diabetes mellitus, type 2) ICD Code: E11.9 - Type 2 diabetes mellitus without complications Status: Chronic (4) Chest pain ICD Code: R07.9 - Chest pain, unspecified Status: Acute Assessment and Plan Acute on chronic systolic CHF - Patient with history CHF with frequent exacerbations. BNP on admission 2674. - X-ray reviewed, minimal parenchymal changes right base suspicious for inflammatory process. - CTA reviewed, no evidence of embolism, supple groundglass nodular opacities in left lung base with discrete apparently new solid nodule measuring up to 9 mm. Consider a follow-up CT in 3 months to document stability, or alternatively PET/CT examination. - Echo from 11/01/16 with EF 15%, s/p AICD placement on 03/12/17 by -continue IV diuretics - Strict I&O's, 1500ml fluid restriction. - Monitor electrolytes. - Resume lisinopril and coreg. Chest pain, acute - Chest pain now resolved, troponin on admission 0.02 - EKG reviewed rhythm, possible left atrial enlargement, left anterior fascicular block, nonspecific ST and T-wave abnormality. - Suspect chest pain may be more related to CHF exacerbation. - serial troponin negative. 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 - On Coumadin, subtherapeutic - Resumed Coumadin, INR today pending; will bridge with subq Lovenox if INR is subtherapeutic, monitor until target 2-3, bridge with lovenox. - consult pharmacy for coumadin dosing. Patient says he was not doing well at home with self administering lovenox and doesn't feel comfortable to go home on it. DM II, chronic - Accu-Cheks with sliding scale - adjust as needed, follow trend Chronic pain - Resume [place] for pain - Will need to follow up with pain management when D/C DVT prophylaxis - Resume Coumadin, noniotr INR until at target range of 2-3 Discharge Planning DC sue INR at target ( 2-3), now bridging with lovenox, pharmacy also following. Case management consulted for discharge plan. Poss DC tomorrow if INR> 2 Rachel Samuel MD Jul 24, 2017 09:45
--- NOTE | 2017-07-24 09:46 | HHI.DS ---
Discharge Summary Admission Date Jul 17, 2017 at 17:32 Discharge Date: Jul 25, 2017 Admitting Diagnosis acute CHF exacerbation, chest pain, nodule to the chest (1) Acute exacerbation of CHF (congestive heart failure) ICD Code: I50.9 - Heart failure, unspecified Status: Acute (2) HTN (hypertension) ICD Code: I10 - Essential (primary) hypertension Status: Chronic (3) DM2 (diabetes mellitus, type 2) ICD Code: E11.9 - Type 2 diabetes mellitus without complications Status: Chronic (4) Chest pain ICD Code: R07.9 - Chest pain, unspecified Status: Acute Procedures none Brief History - From Admission 72-year-old with PMH of CHF, AICD/pacer, HTN, HLD, DM, TIA, and blood clotting disorder. She reports that he came to the ED due to increase SOB which started about 10 days ago and the past 3 days breathing worsened. Yesterday was not able to get out of bed other that go to the bathroom. His SOB is worse with exertion, improved when he rests. States he has also needed to use several pillows to sleep. Complaints of cough, which is worse at bedtime, sputum is light green or desir. Denies any fevers, repots sweats last night, he has also been nauseated for the past 3 days with no vomiting. Has been able to eat without issues. Has also been having some bouts of constipation with diarrhea. Complains of chest pains since yesterday morning, chest pain was also present when he presented to ED. during his episode of chest pain he rates pain 4/10, located at center of his chest, pain does not radiate anywhere else. Taking a deep breath, coughing and exertion will make pain worse. He states that lying flat will help relieve pain. At the time of my visit he denies any chest pain and states that this has resolved. Patient states that he will frequently have bouts of CHF exertion and will experience the same kind of chest pain. His heating mechanic is , was last sen by him 3 months ago. Repots some dizziness when he stands or changes positions quickly, denies syncopal episode. Denies any leg or extremity swelling. CBC/BMP: 07/23/17 0700 07/23/17 0700 Significant Findings Laboratory Tests Test 07/22/17 10:29 07/23/17 07:00 07/24/17 05:32 Prothrombin Time 12.8 SEC (9.8-11.6) 14.2 SEC (9.8-11.6) 18.1 SEC (9.8-11.6) Monocytes (%) (Auto) 11.2 % (0.0-8.0) Eosinophils (%) (Auto) 4.3 % (0.0-4.0) Blood Urea Nitrogen 29 MG/DL (7-18) Random Glucose 176 MG/DL (74-106) Sodium Level 135 MEQ/L (136-145) Estimat Glomerular Filtration Rate 65 ML/MIN (>89) Imaging Reported Meds & Active Scripts Active Lasix (Furosemide) 20 Mg Tab 20 Mg PO DAILY Warfarin 6 Mg Tab 5 Mg PO DAILY Metformin (Metformin HCl) 500 Mg Tab 500 Mg PO DAILY With a meal Carvedilol 3.125 Mg Tab 3.125 Mg PO BID 12 Days Aldactone (Spironolactone) 25 Mg Tab 25 Mg PO DAILY Lisinopril 5 Mg Tab 5 Mg PO DAILY [place] (Hydrocodone-Acetaminophen) 10-325 Mg Tab 1 Tab PO Q8HR PRN Klonopin (Clonazepam) 1 Mg Tab 1 Mg PO Q8HR PRN PE at Discharge GENERAL: This is a well-nourished, well-developed patient, in no apparent distress. CARDIOVASCULAR: Regular rate and regular rhythm without murmurs, gallops, or rubs. RESPIRATORY: Clear to auscultation. Breath sounds equal bilaterally. No wheezes , rales, or rhonchi. GASTROINTESTINAL: Abdomen soft, non-tender, nondistended. Normal, active bowel sounds MUSCULOSKELETAL: Extremities without clubbing, cyanosis, or edema. NEURO: Alert & Oriented x4 to person, place, time, situation. Moves all ext x4 Pt update on day of discharge Feels better. Less sob. INR is therapeutic. No fever or chills. No n/v/d/c. Denies chest pain. Hospital Course Acute on chronic systolic CHF - Patient with history CHF with frequent exacerbations. BNP on admission 2674. - X-ray reviewed, minimal parenchymal changes right base suspicious for inflammatory process. - CTA reviewed, no evidence of embolism, supple groundglass nodular opacities in left lung base with discrete apparently new solid nodule measuring up to 9 mm. Consider a follow-up CT in 3 months to document stability, or alternatively PET/CT examination. - Echo from 11/01/16 with EF 15%, s/p AICD placement on 03/12/17 by - continue IV diuretics - Strict I&O's, 1500ml fluid restriction. - Monitor electrolytes. - Resume lisinopril and coreg. - On coumadin bridged with lovenox Chest pain, acute - Chest pain now resolved, troponin on admission 0.02 - EKG reviewed rhythm, possible left atrial enlargement, left anterior fascicular block, nonspecific ST and T-wave abnormality. - Suspect chest pain may be more related to CHF exacerbation. - serial troponin negative. - Consider consulting his heating mechanic if needed History of PE - CTA of chest negative for PE, discussed nodule finding, will need to follow up in 3 months or do PET. - On Coumadin, subtherapeutic - Resumed Coumadin, INR today pending; will bridge with subq Lovenox if INR is subtherapeutic, monitor until target 2-3, bridge with lovenox. - consult pharmacy for coumadin dosing. Patient says he was not doing well at home with self administering lovenox and doesn't feel comfortable to go home on it. DM II, chronic - Accu-Cheks with sliding scale - adjust as needed, follow trend Chronic pain - Resume [place] for pain - Will need to follow up with pain management when D/C DVT prophylaxis Coumadin Discharge Plannin Case management consulted for discharge plan. DC home INR is 2.4 To follow up as OP with PCP and consultants Pt Condition on Discharge: Stable Discharge Disposition: Discharge Home Discharge Time: > 30 minutes Discharge Instructions DIET: Follow Instructions for: Heart Healthy Diet, Diabetic Diet Activities you can perform: Regular-No Restrictions Follow up Referrals: Cardiology - 1 Week Cardiology - 1 Week with Shelby Turner MD PCP Follow-up - 2-3 Days New Orders: CTA Chest W IV Contrast W 3D - 3 Months PT/INR - 07/27/17 New Medications: Furosemide (Lasix) 20 Mg Tab 20 MG PO DAILY for CHF, #12 TAB 0 Refills Continued Medications: Carvedilol (Carvedilol) 3.125 Mg Tab 3.125 MG PO BID for 12 Days, #24 TAB 0 Refills (This prescription has been renewed) Lisinopril (Lisinopril) 5 Mg Tab 5 MG PO DAILY for CHF, #12 TAB (This prescription has been renewed) Metformin (Metformin) 500 Mg Tab 500 MG PO DAILY for Blood Sugar Management, #12 TAB 0 Refills (This prescription has been renewed) With a meal Spironolactone (Aldactone) 25 Mg Tab 25 MG PO DAILY for CHF, #12 TAB (This prescription has been renewed) Warfarin (Warfarin) 6 Mg Tab 5 MG PO DAILY for Blood Clot Prevention, #12 TAB 0 Refills (This prescription has been renewed) Discontinued Medications: Metoprolol Succinate ER 24 HR (Metoprolol Succinate ER 24 HR) 25 Mg Tab 25 MG PO DAILY, #30 TAB 0 Refills Torsemide (Torsemide) 20 Mg Tab 20 MG PO DAILY for Heart failure, #7 TAB 0 Refills Rachel Samuel MD Jul 24, 2017 09:46
[2017-07-24] MEDS: clonazePAM 1 MG TAB PO PRN (14:26)
[2017-07-24] MEDS ORDERED: SPIR25 PO (15:47)
[2017-07-24] MEDS ORDERED: LISI-519 PO (15:47)
[2017-07-24] MEDS ORDERED: METF500T PO (15:48)
[2017-07-24] MEDS ORDERED: CARV3.12 PO (15:48)
[2017-07-24] MEDS ORDERED: FURO1TAB62 PO (15:48)
[2017-07-24] MEDS ORDERED: WARF-60 PO (15:48)
[2017-07-24] MEDS: WARFARIN SOD 5 MG TAB PO SCH (17:10)
[2017-07-25 00:01] VITALS: PULSE 78
[2017-07-25 04:15] VITALS: PULSE 73
[2017-07-25 05:46] VITALS: BP 118/62; PULSE 88; RESP 18; TEMP 97.9; O2SAT 98
[2017-07-25 06:40] LABS: INTERNATIONAL NORMALIZED RATIO 2.4 RATIO; PROTHROMBIN TIME - PATIENT 24.2 SEC (9.8-11.6)
[2017-07-25] MEDS: INSULIN ASPART SUPPLEMENTAL SCALE SQ SCH (08:00)
[2017-07-25 08:05] VITALS: BP 128/68; PULSE 81; PULSE 84; RESP 18; TEMP 98.2; O2SAT 96
[2017-07-25] MEDS: FUROSEMIDE 20 MG/2 ML VIAL IV PUSH SCH (08:32)
[2017-07-25] MEDS: SODIUM CHLORIDE 0.9% FLUSH 10 ML FLUSH IV FLUSH SCH (08:32)
[2017-07-25] MEDS: ACETAMINOPHEN/HYDROcodone 325 MG/10 MG TAB PO PRN (08:33)
[2017-07-25] MEDS: LISINOPRIL 5 MG TAB PO SCH (08:33)
[2017-07-25] MEDS: SPIRONOLACTONE 25 MG TAB PO SCH (08:33)
[2017-07-25] MEDS: DOCUSATE SODIUM 50 MG/SENNA 8.6 MG TAB PO SCH (08:34)
[2017-07-25] MEDS: CARVEDILOL 3.125 MG TAB PO SCH (08:34)
--- NOTE | 2017-07-25 08:41 | HHI.DCPOC ---
Discharge Care Plan Diagnosis: (1) Anticoagulated on Coumadin (2) Acute exacerbation of CHF (congestive heart failure) (3) Pulmonary embolism (4) Pulmonary nodule (5) DM2 (diabetes mellitus, type 2) (6) Chest pain, rule out acute myocardial infarction Goals to Promote Your Health * To prevent worsening of your condition and complications * To maintain your health at the optimal level Directions to Meet Your Goals Need close follow up on PT/INR - repeat lab on Thursday. Pulmonary nodule found on CT - recommend repeat CT in 3 months for re-evaluation Please follow up with primary care physician and cardiology as outpatient Please follow heart healthy diabetic diet with low salt (2gm daily) and 2L fluid limit per day. Monitor your weight daily and contact your physician if you gain more than 2 pounds in 2 days. Take your medications as prescribed Follow your dietary instruction Follow activity as directed Keep your appointments as scheduled Take your immunizations and boosters as scheduled If your symptoms worsen call your PCP, if no PCP go to Urgent Care Center or Emergency Room Smoking is Dangerous to Your Health. Avoid second hand smoke Call the 24-hour hour crisis hotline for domestic abuse at [place] Jul 25, 2017 08:41
== END 2017-07-25 11:28 | disposition home or self-care (01) ==
LOC: NEPE 13:12 → NEDA 17:32 → NEPHCDU 19:23
PROVIDERS: ADMIT Hospitalist; ATTEND Hospitalist
DX: I11.0 Hypertensive heart disease with heart failure (principal); I50.23 Acute on chronic systolic (congestive) heart failure; I26.99 Other pulmonary embolism without acute cor pulmonale; R91.1 Solitary pulmonary nodule; E11.9 Type 2 diabetes mellitus without complications; E78.5 Hyperlipidemia, unspecified; I25.10 Atherosclerotic heart disease of native coronary artery without angina pectoris; F12.90 Cannabis use, unspecified, uncomplicated; I25.2 Old myocardial infarction; K59.00 Constipation, unspecified; Z79.84 Long term (current) use of oral hypoglycemic drugs; Z79.01 Long term (current) use of anticoagulants; Z86.73 Personal history of transient ischemic attack (TIA), and cerebral infarction without residual deficits; Z87.891 Personal history of nicotine dependence; Z86.14 Personal history of Methicillin resistant Staphylococcus aureus infection; Z95.810 Presence of automatic (implantable) cardiac defibrillator; Z23 Encounter for immunization
CPT/HCPCS: 36000; 71046; 71275; 80048; 80053; 82550; 82552; 82948; 83735; 83880; 84100; 84484; 85025; 85610; 85730; 93005; 96372; 96374; 96376; 99285; G0378; J1650; J1815; J1940; Q2038; Q9967; 90686

== ENCOUNTER 2017-08-22 23:19 | Observation (INO) | payer MEDICARE ==
[~2017-08-22] VITALS: Ht 182.9 cm; Wt 70.0 kg
[~2017-08-22 23:19] MED LIST changes: -CEPH500C PO; -ENOX100P SQ; +FURO1TAB62 PO; -LEVEMIR SQ; -METO1TAB42 PO; -NOVOLOGSS SQ; -TORS20TA PO
[2017-08-22 23:34] VITALS: BP 145/94; PULSE 101; RESP 26; TEMP 98.1; O2SAT 98
[2017-08-22] MEDS ORDERED: NITROGLYCERIN 0.4 MG SL 25 TABS/BTL SL ONE (23:45)
[2017-08-22] MEDS ORDERED: NITROGLYCERIN 2% OINT 1 GM PACKET TOP ONE (23:45)
[2017-08-22] MEDS ORDERED: SODIUM CHLORIDE 0.9% FLUSH 10 ML FLUSH IVF PRN (23:45)
[2017-08-22 23:47] VITALS: O2SAT 98
[2017-08-23] VITALS (7 sets, daily range): BP systolic 100–118; BP diastolic 58–86; PULSE 60–96; RESP 16–24; TEMP 97.9–99.2; O2SAT 94–99
[2017-08-23 00:17] LABS: AUTOMATED NEUTROPHIL # 6.9 TH/MM3 (1.8-7.7); BASOPHIL % 0.3 % (0.0-2.0); EOSINOPHIL % 0.4 % (0.0-4.0); HEMATOCRIT 38.6 % (39.0-51.0); HEMOGLOBIN 12.5 GM/DL (13.0-17.0); LYMPH % 8.7 % (9.0-44.0); LYMPHOCYTE # 0.7 TH/MM3 (1.0-4.8); MEAN CELL VOLUME 87.7 FL (80.0-100.0); MEAN CORPUSCULAR HEMOGLOBIN 28.4 PG (27.0-34.0); MEAN CORPUSCULAR HGB CONC 32.4 % (32.0-36.0); MEAN PLATELET VOLUME 8.6 FL (7.0-11.0); MONO % 6.9 % (0.0-8.0); MONOCYTE # 0.6 TH/MM3 (0-0.9); NEUT % 83.7 % (16.0-70.0); PLATELET COUNT 186 TH/MM3 (150-450); RED BLOOD COUNT 4.41 MIL/MM3 (4.50-5.90); RED CELL DISTRIBUTION WIDTH 17.9 % (11.6-17.2); WHITE BLOOD COUNT 8.2 TH/MM3 (4.0-11.0)
--- NOTE | 2017-08-23 00:21 | RADRPT ---
EXAM DATE/TIME: 08/22/2017 23:59 [facility] COMPARISON: CHEST PA & LAT, July 17, 2017, 14:54. INDICATIONS : Pt woke with Shortness of breath MEDICAL HISTORY : Hypercholesterolemia. Hypothyroidism. Diabetes mellitus type II. CHF, CAD, CT, Anticardiophosphol ipid syndrome SURGICAL HISTORY : Appendectomy. Cholecystectomy. Pacemaker. ENCOUNTER: Initial ACUITY: 1 day PAIN SCORE: 6/10 LOCATION: Bilateral chest FINDINGS: Global cardiomegaly. Pacer lead overlies right ventricle. Hazy opacity at the lung bases with trace p leural effusions. No pneumothorax. CONCLUSION: 1. Mild edema pattern. Trace pleural fluid. Findings are most characteristic of mild congestive heart failure. Jesus Henry MD on August 23, 2017 at 0:16 Board Certified Radiologist. This report was verified electronically.
[2017-08-23 00:27] LABS: ALT (GPT) 204 U/L (12-78); AST (GOT) 235 U/L (15-37); BICARBONATE 21.4 MEQ/L (21.0-32.0); CALCIUM 8.2 MG/DL (8.5-10.1); CHLORIDE 105 MEQ/L (98-107); CREATININE 0.92 MG/DL (0.60-1.30); GLOMERULAR FILTRATION RATE 81 ML/MIN (>89); GLUCOSE,RANDOM 267 MG/DL (74-106); MAGNESIUM 1.6 MG/DL (1.5-2.5); SODIUM (NA) 135 MEQ/L (136-145)
[2017-08-23] MEDS ORDERED: PIPERACIL-TAZO 4.5 GM PREMIX 100 ML IV ONE (00:30)
[2017-08-23] MEDS ORDERED: VANCOMYCIN INJ 1,250 MG in SODIUM CHLOR 0.9% 250 ML INJ 250 ML IV ONE (00:30)
[2017-08-23 00:33] LABS: ALKALINE PHOSPHATASE 157 U/L (45-117); BLOOD UREA NITROGEN 17 MG/DL (7-18); INTERNATIONAL NORMALIZED RATIO 1.4 RATIO; PROTHROMBIN TIME - PATIENT 13.9 SEC (9.8-11.6); TOTAL BILIRUBIN ADULT 0.8 MG/DL (0.2-1.0); TOTAL PROTEIN 6.6 GM/DL (6.4-8.2); TROPONIN I 0.02 NG/ML (0.02-0.05)
[2017-08-23 00:35] LABS: D-DIMER 1.64 MG/L FEU (0.00-0.50)
[2017-08-23] MEDS ORDERED: FUROSEMIDE 40 MG/4 ML VIAL IV PUSH ONE (01:45)
[2017-08-23] MEDS ORDERED: IOHEXOL 350 MG/ML 10 ML VIAL (for RAD DIAG) IVCONTRAST ONE (02:28)
--- NOTE | 2017-08-23 02:48 | RADRPT ---
EXAM DATE/TIME: 08/23/2017 02:27 [facility] COMPARISON: No previous studies available for comparison. INDICATIONS : Dyspnea; rule out pulmonary embolus. IV CONTRAST: 75 cc Omnipaque 350 (iohexol) IV RADIATION DOSE: 18.06 CTDIvol (mGy) MEDICAL HISTORY : Cardiovascular disease. Hypertension. Seizures.Diabetes SURGICAL HISTORY : Appendectomy. Cholecystectomy.Pacemaker. ENCOUNTER: Initial ACUITY: 1 day PAIN SCALE: 0/10 LOCATION: chest TECHNIQUE: Volumetric scanning of the chest was performed using a pulmonary embolism protocol MIP images were re constructed. Using automated exposure control and adjustment of the mA and/or kV according to patien t size, radiation dose was kept as low as reasonably achievable to obtain optimal diagnostic quality images. DICOM format image data is available electronically for review and comparison. Follow-up recommendations for detected pulmonary nodules are based at a minimum on nodule size and pa tient risk factors according to Fleischner Society Guidelines. FINDINGS: No filling defects to suggest pulmonary embolus. Moderate to severe coronary calcifications. The small bilateral pleural effusions. There is peribronchial thickening and mild distal airway disea se at the lung bases. There is mild mediastinal adenopathy measuring up to about 1.3 cm in the right paratracheal region. This is similar to September 2016. CONCLUSION: 1. Negative for pulmonary embolus. 2. Small bilateral pleural effusions. 3. Peribronchial thickening with mild distal airway disease at both lung bases. 4. Mild mediastinal adenopathy relatively stable over the last year. Jesus Henry MD on August 23, 2017 at 2:42 Board Certified Radiologist. This report was verified electronically.
[2017-08-23] MEDS ORDERED: SENNOSIDES 8.6 MG TAB PO PRN (04:00)
[2017-08-23] MEDS ORDERED: LACTULOSE SYRUP 20 GM/30 ML CUP PO PRN (04:00)
[2017-08-23] MEDS ORDERED: NITROGLYCERIN 2% OINT 1 GM PACKET TOPICAL PRN (04:00)
[2017-08-23] MEDS ORDERED: GLUCAGON 1 MG/ML VIAL OTHER PRN (04:00)
[2017-08-23] MEDS ORDERED: ACETAMINOPHEN/HYDROcodone 325 MG/5 MG TAB PO PRN (04:00)
[2017-08-23] MEDS ORDERED: ACETAMINOPHEN 325 MG TAB PO PRN (04:00)
[2017-08-23] MEDS ORDERED: MAGNESIUM HYDROXIDE SUSP 30 ML CUP PO PRN (04:00)
[2017-08-23] MEDS ORDERED: DEXTROSE 50% IN WATER 50 ML VIAL(D50) IV PUSH PRN (04:00)
[2017-08-23] MEDS ORDERED: BISACODYL 10 MG SUPP RECTAL PRN (04:00)
[2017-08-23] MEDS ORDERED: ONDANSETRON HCL 4 MG/2 ML VIAL IVP PRN (04:00)
--- NOTE | 2017-08-23 04:01 | PD ---
HPI . Acute respiratory symptoms Chief Complaint: Respiratory Symptoms Time Seen by Provider: 23:44 Travel History International Travel<30 days: No Contact w/Intl Traveler<30days: No Traveled to known affect area: No History of Present Illness HPI 72-year-old male with extensive past medical history history of coronary disease and CHF states he was just not feeling well today felt feverish extremely weak started dropping shortness of breath, cough that was progressive throughout the day. This evening the patient developed significant chest pain which she has had prior. Patient called the ambulance who presented administered nitroglycerin spray 2 sublingual with significant improvement in patient's chest pain. Patient still has shortness of breath and cough however that also improved. Patient does not note any orthopnea or leg swelling. Patient states he feels like he has the flu. Chest pain characterized as a dull ache, however when patient coughs he has more of a sharper pain on the right side. No quantified fever, cough is nonproductive PFSH Past Medical History Narrative Medical Past medical history reviewed Hx Anticoagulant Therapy: Yes (coumadin) Arthritis: No Asthma: Yes (childhood only) Blood Disorders: Yes (anticardiophosolipid syndrome) Anxiety: Yes Depression: No Heart Rhythm Problems: Yes Cancer: No Cardiac Catheterization: No Cardiovascular Problems: Yes High Cholesterol: Yes Chemotherapy: No Chest Pain: Yes (current) Congestive Heart Failure: Yes COPD: No Cerebrovascular Accident: Yes Coronary Artery Disease: Yes Diabetes: Yes Patient Takes Glucophage: Yes (metformin) Diminished Hearing: No Endocrine: Yes (DIABETES) Gastrointestinal Disorders: No GERD: No Glaucoma: No Genitourinary: No Headaches: No Hepatitis: No Hiatal Hernia: No Heparin Induced Thrombocytopen: No Hypertension: Yes Immune Disorder: Yes (anticardiophosolipid syndrome) Implanted Vascular Access Dvce: Yes Kidney Stones: No Musculoskeletal: Yes (bilateral hand&wrist fx/ back&neck x 6 sx 1986/ ) Neurologic: No Psychiatric: Yes (anxiety) Reproductive: No Respiratory: Yes Integumentary: Yes Immunizations Current: Yes Migraines: No Myocardial Infarction: Yes (mother) Radiation Therapy: No Renal Failure: No Seizures: Yes (20 YEARS AGO W/ TIAS) Sickle Cell Disease: No Sleep Apnea: Yes Thyroid Disease: No Ulcer: No Tetanus Vaccination: Unknown Influenza Vaccination: Yes PNEUMOCCOCAL Vaccine (Year): 2007 Past Surgical History AICD: No Appendectomy: Yes Arteriovenous Shunt: No Body Medical Devices: neck (screws and plates) Cardiac Surgery: No Cholecystectomy: Yes (pt is unsure) Coronary Artery Bypass Graft: No Ear Surgery: No Endocrine Surgery: No Eye Surgery: No Genitourinary Surgery: No Gynecologic Surgery: No Insulin Pump: No Joint Replacement: No Neurologic Surgery: No Oral Surgery: No Pacemaker: No Thoracic Surgery: Yes (COLLAPSED LUNG) Other Surgery: Yes (appedix 1960/bilaterl hand/wrist fx in highschool&right [id number] x back) Social History Alcohol Use: No Tobacco Use: No Substance Use: Yes (HX OF IVD) Allergies-Medications (Allergen,Severity, Reaction): Coded Allergies: morphine (Unverified Allergy, Severe, Itching, 08/22/17) *MDRO Multi-Drug Resistant Organism (Verified Adverse Reaction, Unknown, ) 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/16 Reported Meds & Prescriptions Reported Meds & Active Scripts Active Lasix (Furosemide) 20 Mg Tab 20 Mg PO DAILY Warfarin 6 Mg Tab 5 Mg PO DAILY Metformin (Metformin HCl) 500 Mg Tab 500 Mg PO DAILY With a meal Carvedilol 3.125 Mg Tab 3.125 Mg PO BID 12 Days Aldactone (Spironolactone) 25 Mg Tab 25 Mg PO DAILY Lisinopril 5 Mg Tab 5 Mg PO DAILY [place] (Hydrocodone-Acetaminophen) 10-325 Mg Tab 1 Tab PO Q8HR PRN Klonopin (Clonazepam) 1 Mg Tab 1 Mg PO Q8HR PRN Narrative Medication Allergies and medications reviewed Review of Systems Except as stated in HPI: all other systems reviewed are Neg General / Constitutional: Positive: Fever, Chills Eyes: No: Visual changes HENT: No: Headaches Cardiovascular: Positive: Chest Pain or Discomfort Respiratory: Positive: Cough, Shortness of Breath, Orthopnea, Pleuritic Pain, No: Hemoptysis, Stridor, Night Sweats Gastrointestinal: No: Nausea, Vomiting, Abdominal Pain Genitourinary: No: Dysuria Musculoskeletal: No: Pain Skin: No Rash Neurologic: No: Weakness Psychiatric: No: Depression Endocrine: No: Polydipsia Hematologic/Lymphatic: No: Easy Bruising Physical Exam Narrative GENERAL: Awake and alert oriented 3 no acute distress. Vital signs afebrile normal and stable SKIN: Warm and dry. Color is slightly sallow and pale, no diaphoresis HEAD: Atraumatic. Normocephalic. EYES: Pupils equal and round. No scleral icterus. No injection or drainage. ENT: No nasal bleeding or discharge. Mucous membranes pink and moist. No oral lesions NECK: Trachea midline. No JVD. Supple full range of motion CARDIOVASCULAR: Regular rate and rhythm. S1-S2 no murmurs rubs gallops RESPIRATORY: No accessory muscle use. Slight rales bilateral, no rhonchi heard with forced exhalation only centrally no prolonged expiratory phase. Breath sounds equal bilaterally. GASTROINTESTINAL: Abdomen soft, non-tender, nondistended. Hepatic and splenic margins not palpable. MUSCULOSKELETAL: Extremities without clubbing, cyanosis, or edema. No obvious deformities. NEUROLOGICAL: Awake and alert. No obvious cranial nerve deficits. Motor grossly within normal limits. Five out of 5 muscle strength in the arms and legs. Normal speech. PSYCHIATRIC: Appropriate mood and affect; insight and judgment normal. Data Data Last Documented VS Vital Signs Date Time Temp Pulse Resp B/P (MAP) Pulse Ox O2 Delivery O2 Flow Rate FiO2 08/23/17 01:51 78 24 108/71 (83) 94 Room Air 08/22/17 23:47 2.00 08/22/17 23:34 98.1 Orders Orders Electrocardiogram (08/22/17 23:44) B-Type Natriuretic Peptide (08/22/17 23:44) Ckmb (Isoenzyme) Profile (08/22/17 23:44) Complete Blood Count With Diff (08/22/17 23:44) Comprehensive Metabolic Panel (08/22/17 23:44) D-Dimer (08/22/17 23:44) Magnesium (Mg) (08/22/17 23:44) Prothrombin Time / Inr (Pt) (08/22/17 23:44) Act Partial Throm Time (Ptt) (08/22/17 23:44) Troponin I (08/22/17 23:44) Chest, Single Ap (08/22/17 23:44) Ecg Monitoring (08/22/17 23:44) Bilateral Bp Monitoring (08/22/17 23:44) Iv Access Insert/Monitor (08/22/17 23:44) Oximetry (08/22/17 23:44) Oxygen Administration (08/22/17 23:44) Nitroglycerin 2% Oint (Nitroglycerin 2% (08/22/17 23:45) Sodium Chloride 0.9% Flush (Ns Flush) (08/22/17 23:45) Nitroglycerin Sl (Nitrostat Sl) (08/22/17 23:45) Influenzae A/B Antigen (08/23/17 00:16) Vancomycin Inj (Vancomycin Inj) (08/23/17 00:30) Piperacil-Tazo 4.5 Gm Premix (Zosyn 4.5 (08/23/17 00:30) Furosemide Inj (Lasix Inj) (08/23/17 01:45) Ct Pulmonary Angiogram (08/23/17 ) Iohexol 350 Inj (Omnipaque 350 Inj) (08/23/17 02:28) Troponin I (08/23/17 02:55) Labs Laboratory Tests Test 08/22/17 23:50 08/23/17 03:01 White Blood Count 8.2 TH/MM3 Red Blood Count 4.41 MIL/MM3 Hemoglobin 12.5 GM/DL Hematocrit 38.6 % Mean Corpuscular Volume 87.7 FL Mean Corpuscular Hemoglobin 28.4 PG Mean Corpuscular Hemoglobin Concent 32.4 % Red Cell Distribution Width 17.9 % Platelet Count 186 TH/MM3 Mean Platelet Volume 8.6 FL Neutrophils (%) (Auto) 83.7 % Lymphocytes (%) (Auto) 8.7 % Monocytes (%) (Auto) 6.9 % Eosinophils (%) (Auto) 0.4 % Basophils (%) (Auto) 0.3 % Neutrophils # (Auto) 6.9 TH/MM3 Lymphocytes # (Auto) 0.7 TH/MM3 Monocytes # (Auto) 0.6 TH/MM3 Eosinophils # (Auto) 0.0 TH/MM3 Basophils # (Auto) 0.0 TH/MM3 CBC Comment DIFF FINAL Differential Comment Prothrombin Time 13.9 SEC Prothromb Time International Ratio 1.4 RATIO Activated Partial Thromboplast Time 25.6 SEC D-Dimer Quantitative (PE/DVT) 1.64 MG/L FEU Blood Urea Nitrogen 17 MG/DL Creatinine 0.92 MG/DL Random Glucose 267 MG/DL Total Protein 6.6 GM/DL Albumin 3.0 GM/DL Calcium Level 8.2 MG/DL Magnesium Level 1.6 MG/DL Alkaline Phosphatase 157 U/L Aspartate Amino Transf (AST/SGOT) 235 U/L Alanine Aminotransferase (ALT/SGPT) 204 U/L Total Bilirubin 0.8 MG/DL Sodium Level 135 MEQ/L Potassium Level 3.8 MEQ/L Chloride Level 105 MEQ/L Carbon Dioxide Level 21.4 MEQ/L Anion Gap 9 MEQ/L Estimat Glomerular Filtration Rate 81 ML/MIN Total Creatine Kinase 87 U/L Troponin I 0.02 NG/ML 0.03 NG/ML B-Type Natriuretic Peptide 3206 PG/ML MDM Medical Decision Making Medical Screen Exam Complete: Yes Emergency Medical Condition: Yes Medical Record Reviewed: Yes Differential Diagnosis Chest pain, CHF, pneumonia, pulmonary embolus, influenza Narrative Course EKG sinus rhythm at 96 bpm, mild ST depression of less than 1 mm in V5 and V6 Chest x-ray pulmonary vascular congestion with possible right-sided infiltrate Patient's laboratory examinations reviewed, patient has elevated d-dimer at 1.64. Trop 0.02, 0.[address] pulmonary angiogram chest negative for PE. Right sided lung nodule/mass evaluated, no interval change as per radiology. Possible early infiltrate on the right side versus scarring Patient felt significantly improved with nitroglycerin and diuresis. Broad-spectrum antibiotics given for possible pneumonia Case discussed with hospitalist service Dr. Smith, admitted Diagnosis Primary Impression: Chest pain Qualified Codes: R07.9 - Chest pain, unspecified Additional Impression: CHF (congestive heart failure) Qualified Codes: I50.9 - Heart failure, unspecified Admitting Information Admitting Physician Requests: Admit Jerry Hogan MD Aug 23, 2017 04:01
--- NOTE | 2017-08-23 04:40 | HHI.HP ---
[facility] Kwesi Joseph MD Admission Diagnosis Diagnoses: (1) CHF (congestive heart failure) Diagnosis: Principal (2) Chest pain Diagnosis: Principal (3) Anticoagulated on Coumadin Diagnosis: Principal (4) DM (diabetes mellitus) Diagnosis: Principal Travel History International Travel<30 Days: No Contact w/Intl Traveler <30 Da: No Traveled to Known Affected Are: No History of Present Illness This is a 72-year-old male with a PMH of HTN, Anxiety, Anti-Cardio Phospholipid Syndrome, H/o PE on Coumadin, HTN, DM and CHF (Echo 11/01/16 w/ EF 15%) s/p AICD who presented to the ER w/ complaints of SOB and chest pain starting earlier today. States symptoms had gotten progressively worse throughout the day and decided to come in. Recent admit 07/17-07/24/17 for similar complaints, admitted for CHF Exacerbation and chest pain, s/p diuresis w/ negative serial troponin. Reports substernal chest pain, constant, severe, 6/10, non-radiating, s/p NTG w / improvement, currently chest pain free. On arrival, BP 145/94, HR 101, O2 sat 98% on 2L NC, Afebrile. CBC essentially unremarkable. Chemistry unremarkable. Troponin 0.02, repeat troponin 0.03. BNP 3206. INR 1.4. D- dimer 1.64. CXR with mild edema trace pleural fluid, characteristic of mild congestive heart failure. CTA Pulm negative for PE, small bilateral pleural effusions, peribronchial thickening. S/p Lasix 40mg IV in ER. Follows w/ Dr. Henry as outpatient, states has upcoming appt. Review of Systems Except as stated in HPI: all other systems reviewed are Neg ROS: 14 point review of systems otherwise negative. Past Family Social History Past Medical History PMH: HTN, Anxiety, Anti-Cardio Phospholipid Syndrome, H/o PE on Coumadin, HTN, DM and CHF (Echo 11/01/16 w/ EF 15%) s/p AICD Past Surgical History PAST SURGICAL HISTORY: Appendectomy, Cervical Screws, Cholecystectomy Allergies: Coded Allergies: morphine (Unverified Allergy, Severe, Itching, 08/22/17) *MDRO Multi-Drug Resistant Organism (Verified Adverse Reaction, Unknown, ) 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/16 Family History PAST FAMILY HISTORY: Reviewed. No h/o DM or CAD Social History PAST SOCIAL HISTORY: Negative for alcohol, tobacco or drugs. Physical Exam Vital Signs Vital Signs Date Time Temp Pulse Resp B/P (MAP) Pulse Ox O2 Delivery O2 Flow Rate FiO2 08/23/17 01:51 78 24 108/71 (83) 94 Room Air 08/22/17 23:47 99 Nasal Cannula 2.00 08/22/17 23:47 98 Nasal Cannula 2.00 08/22/17 23:34 98.1 101 26 145/94 (111) 98 Nasal Cannula 2.00 Physical Exam PE: GENERAL: Elderly white male in no acute distress, resting comfortably. HEENT: PERRLA, EOMI. No scleral icterus or conjunctival pallor. No lid lag or facial droop. CARDIOVASCULAR: Regular rate and rhythm. No obvious murmurs to auscultation. No chest tenderness to palpation. RESPIRATORY: No obvious rhonchi or wheezing. Clear to auscultation. Breath sounds equal bilaterally. GASTROINTESTINAL: Abdomen soft, non-tender, nondistended. BS normal. MUSCULOSKELETAL: Extremities without clubbing, cyanosis, or edema. No obvious deformities. NEUROLOGICAL: Awake, alert and oriented x4. No focal neurologic deficits. Moving both upper and lower extremities spontaneously. Laboratory Laboratory Tests Test 08/22/17 23:50 08/23/17 03:01 White Blood Count 8.2 Red Blood Count 4.41 Hemoglobin 12.5 Hematocrit 38.6 Mean Corpuscular Volume 87.7 Mean Corpuscular Hemoglobin 28.4 Mean Corpuscular Hemoglobin Concent 32.4 Red Cell Distribution Width 17.9 Platelet Count 186 Mean Platelet Volume 8.6 Neutrophils (%) (Auto) 83.7 Lymphocytes (%) (Auto) 8.7 Monocytes (%) (Auto) 6.9 Eosinophils (%) (Auto) 0.4 Basophils (%) (Auto) 0.3 Neutrophils # (Auto) 6.9 Lymphocytes # (Auto) 0.7 Monocytes # (Auto) 0.6 Eosinophils # (Auto) 0.0 Basophils # (Auto) 0.0 CBC Comment DIFF FINAL Differential Comment Prothrombin Time 13.9 Prothromb Time International Ratio 1.4 Activated Partial Thromboplast Time 25.6 D-Dimer Quantitative (PE/DVT) 1.64 Blood Urea Nitrogen 17 Creatinine 0.92 Random Glucose 267 Total Protein 6.6 Albumin 3.0 Calcium Level 8.2 Magnesium Level 1.6 Alkaline Phosphatase 157 Aspartate Amino Transf (AST/SGOT) 235 Alanine Aminotransferase (ALT/SGPT) 204 Total Bilirubin 0.8 Sodium Level 135 Potassium Level 3.8 Chloride Level 105 Carbon Dioxide Level 21.4 Anion Gap 9 Estimat Glomerular Filtration Rate 81 Total Creatine Kinase 87 Troponin I 0.02 0.03 B-Type Natriuretic Peptide 3206 Date/Time Source Procedure Growth Status 08/23/17 00:45 Nasal Washing Influenza Types A,B Antigen (KAYKAY) - Final NEGATIVE FOR FLU A AND B ANTIGEN.... Complete Result Diagram: 08/22/17234908/22/172349 Caprini VTE Risk Assessment Caprini VTE Risk Assessment: Mod/High Risk (score >= 2) Caprini Risk Assessment Model Point Value = 1 Point Value = 2 Point Value = 3 Point Value = 5 Age 41-60 Minor surgery BMI > 25 kg/m2 Swollen legs Varicose veins or History of unexplained or recurrent spontaneous Oral contraceptives or hormone replacement Sepsis (< 1 month) Serious lung disease, including pneumonia (< 1 month) Abnormal pulmonary function Acute myocardial infarction Congestive heart failure (< 1 month) History of inflammatory bowel disease Medical patient at bed rest Age 61-74 Arthroscopic surgery Major open surgery (> 45 min) Laparoscopic surgery (> 45 min) Malignancy Confined to bed (> 72 hours) Immobilizing plaster cast Central venous access Age >= 75 History of VTE Family history of VTE Factor V Leiden Prothrombin [id number] Lupus anticoagulant Anticardiolipin antibodies Elevated serum homocysteine Heparin-induced thrombocytopenia Other congenital or acquired thrombophilia Stroke (< 1 month) Elective arthroplasty Hip, pelvis, or leg fracture Acute spinal cord injury (< 1 month) Prophylaxis Regimen Total Risk Factor Score Risk Level Prophylaxis Regimen 0-1 Low Early ambulation 2 Moderate Order ONE of the following: *Sequential Compression Device (SCD) *Heparin 5000 units SQ BID 3-4 Higher Order ONE of the following medications: *Heparin 5000 units SQ TID *Enoxaparin/Lovenox 40 mg SQ daily (WT < 150 kg, CrCl > 30 mL/min) *Enoxaparin/Lovenox 30 mg SQ daily (WT < 150 kg, CrCl > 10-29 mL/min) *Enoxaparin/Lovenox 30 mg SQ BID (WT < 150 kg, CrCl > 30 mL/min) AND/OR *Sequential Compression Device (SCD) 5 or more Highest Order ONE of the following medications: *Heparin 5000 units SQ TID (Preferred with Epidurals) *Enoxaparin/Lovenox 40 mg SQ daily (WT < 150 kg, CrCl > 30 mL/min) *Enoxaparin/Lovenox 30 mg SQ daily (WT < 150 kg, CrCl > 10-29 mL/min) *Enoxaparin/Lovenox 30 mg SQ BID (WT < 150 kg, CrCl > 30 mL/min) AND *Sequential Compression Device (SCD) Assessment and Plan Problem List: (1) CHF (congestive heart failure) ICD Code: I50.9 - Heart failure, unspecified Status: Chronic (2) Chest pain ICD Code: R07.9 - Chest pain, unspecified Status: Acute (3) Anticoagulated on Coumadin ICD Code: Z51.81 - Encounter for therapeutic drug level monitoring; Z79.01 - correction (current) use of anticoagulants (4) DM (diabetes mellitus) ICD Code: E11.9 - Type 2 diabetes mellitus without complications Status: Chronic Assessment and Plan A/P: 1. CHF: Acute on Chronic. Systolic. Echo 11/01/16 w/ EF 15%, s/p AICD, BNP 3206, CXR w/ mild congestive heart failure, CTA Pulm negative for PE, mild pleural effusion, images reviewed by me. S/p Lasix 40mg IV in ER. Continue w/ Lasix 40mg IV bid, Monitor I/O, Fluid Restriction. Follows w/ Dr. Henry as outpatient, will consult for further evaluation/recommendations as recent admit 07/17-07/24/17 for similar presentation. 2. Chest Pain: acute onset substernal chest pain, now relieved after NTG. Initial trop 0.02, repeat trop 0.03, check serial cardiac enzymes to trend to eval for possible ischemia. NTG prn, Morphine ALLERGY. Resume home medications. 3. Anticoagulation: on chronic anticoagulation secondary to h/o PE and anti- cardio phospholipid syndrome, INR subtherapeutic at 1.4, resume home Coumadin, monitor INR. Bridge w/ Lovenox 70mg bid. 4. DM: Sliding scale w/ Accu-Cheks. Hold Metformin for possible cardiac intervention. 5. DVT Prophylaxis: Lovenox/Coumadin 6. Social work for d/c planning as needed 7. Case discussed w/ ER physician at length, labs/records/imaging reviewed by me. Problem Qualifiers (1) CHF (congestive heart failure): Qualified Codes: I50.9 - Heart failure, unspecified (2) Chest pain: Qualified Codes: R07.9 - Chest pain, unspecified Olinda Smith MD Aug 23, 2017 04:40
[2017-08-23] MEDS: ENOXAPARIN SODIUM 80 MG/0.8 ML SYRINGE SQ SCH ×2 (06:17→18:17)
[2017-08-23] MEDS: INSULIN ASPART SUPPLEMENTAL SCALE SQ SCH ×4 (10:44→21:00)
[2017-08-23] MEDS: WARFARIN SOD 5 MG TAB PO SCH (10:44)
[2017-08-23] MEDS: LISINOPRIL 5 MG TAB PO SCH (10:44)
[2017-08-23] MEDS: SODIUM CHLORIDE 0.9% FLUSH 10 ML FLUSH IV FLUSH SCH ×2 (10:45→21:46)
[2017-08-23] MEDS: CARVEDILOL 3.125 MG TAB PO SCH ×2 (10:45→21:45)
[2017-08-23] MEDS: SPIRONOLACTONE 25 MG TAB PO SCH (10:45)
[2017-08-23] MEDS: DOCUSATE SODIUM 50 MG/SENNA 8.6 MG TAB PO SCH ×2 (10:45→21:45)
[2017-08-23] MEDS ORDERED: POTASSIUM CHLORIDE 10 MEQ CONTROLLED RELEASE TAB PO ONE (12:00)
--- NOTE | 2017-08-23 14:18 | MB ---
cc: ANNA OHDGE M.D. DATE OF CONSULTATION: 08/23/2017. REASON FOR CONSULTATION: Evaluation of congestive heart failure. HISTORY OF PRESENT ILLNESS: Chava Lucio is a 72-year-old man who has seen Dr. Henry and has most recently seeing Dr. Turner. He has a known nonischemic cardiomyopathy. He had a cardiac catheterization November 24, 2016. The ejection fraction was severely impaired. His left anterior descending had about 60% mid stenosis with two diseased diagonals. The circumflex artery was dominant with 70% disease with a very small second obtuse marginal branch and 50% diffuse disease. The right coronary artery was nondominant with 70% mid disease. The ramus intermediate vessel was small with diffuse disease. The last ejection fraction March 04 was up to 25% and it was below that previously. He has been on a regimen with a beta-harshal, JENNIFER inhibitor and diuretic but only on 20 mg torsemide. For the last two to three days he thinks he has been gaining fluid, shortness of breath, weakness, extreme fatigue and was sleeping 24 hours straight, some nausea, some cough, some chest discomfort in the upper chest on and off and possible flu-like symptoms. Since admission, he is receiving IV diuretics and his symptoms are improving. He is less short of breath than he was. He has been on chronic Coumadin therapy. He apparently had a previous transesophageal echocardiogram and has cardiolipin antibodies before. PAST MEDICAL HISTORY: His past medical history is also notable for previous pneumothorax. PAST SURGICAL HISTORY: His past surgical history includes: 1. Appendectomy. 2. Bilateral wrist fracture surgery. 3. Right knee surgery. 4. Six back operations. 5. Two cervical laminectomies. 6. He has a defibrillator. ALLERGIES: MORPHINE. FAMILY HISTORY: Family history is positive for congestive heart failure. SOCIAL HISTORY: Significant for past polysubstance abuse including intravenous drug abuse. Negative for alcohol, tobacco or drugs at this time. REVIEW OF SYSTEMS: His review of systems is otherwise noncontributory. PHYSICAL EXAMINATION: GENERAL: Adequately developed elderly white male in no acute distress. VITAL SIGNS: Charted. HEAD, EYES, EARS, NOSE, THROAT: Exam unremarkable. NECK: Shows increased central venous pressure but no carotid bruits. CHEST: Shows diminished breath sounds at the bases. CARDIAC: S1, S2, S3 regular rhythm. ABDOMEN: Soft, nontender. EXTREMITIES: Show no peripheral edema. EKGS: EKG showing mild congestive heart failure. IMPRESSION: Acute on chronic systolic congestive heart failure with a known cardiomyopathy. He is slowly starting to improve RECOMMENDATIONS: 1. Continue IV diuretics. 2. Continue JENNIFER inhibitor and beta harshal. 3. Once stable, he will need to be on a more potent diuretic than 20 milligrams furosemide. I would advise 20 milligrams torsemide daily. Further therapy be determined. MD BRIAN Mccray/OPAL /2:01 PM /2:07 PM
--- NOTE | 2017-08-23 14:40 | EKG ---
Date Performed: 08/22/2017 Time Performed: 23:33:56 PTAGE: 72 years EKG: Sinus rhythm POSSIBLE LEFT ATRIAL ENLARGEMENT MARKED LEFT AXIS DEVIATION MODERATE INTRAVENTRICULAR CONDUCTION DEL AY NONSPECIFIC ST & T-WAVE ABNORMALITY Left anterior fascicular block ABNORMAL ECG PREVIOUS TRACING : 07/18/2017 03.05 DOCTOR: Tex Villa Interpretating Date/Time 08/23/2017 14:37:25
[2017-08-23] MEDS: ACETAMINOPHEN/HYDROcodone 325 MG/10 MG TAB PO PRN (15:21)
[2017-08-23] MEDS ORDERED: FUROSEMIDE 20 MG/2 ML VIAL IV PUSH SCH (18:00)
[2017-08-23] MEDS: clonazePAM 1 MG TAB PO PRN (21:45)
[2017-08-24] VITALS (8 sets, daily range): BP systolic 110–130; BP diastolic 70–82; PULSE 72–86; RESP 14–18; TEMP 97.3–98.6; O2SAT 95–99
[2017-08-24 05:18] LABS: AUTOMATED NEUTROPHIL # 3.3 TH/MM3 (1.8-7.7); BASOPHIL % 0.7 % (0.0-2.0); EOSINOPHIL # 0.2 TH/MM3 (0-0.4); EOSINOPHIL % 3.6 % (0.0-4.0); HEMATOCRIT 38.2 % (39.0-51.0); HEMOGLOBIN 12.7 GM/DL (13.0-17.0); LYMPH % 34.4 % (9.0-44.0); LYMPHOCYTE # 2.1 TH/MM3 (1.0-4.8); MEAN CELL VOLUME 86.9 FL (80.0-100.0); MEAN CORPUSCULAR HEMOGLOBIN 28.9 PG (27.0-34.0); MEAN CORPUSCULAR HGB CONC 33.3 % (32.0-36.0); MEAN PLATELET VOLUME 8.6 FL (7.0-11.0); MONO % 6.6 % (0.0-8.0); MONOCYTE # 0.4 TH/MM3 (0-0.9); NEUT % 54.7 % (16.0-70.0); PLATELET COUNT 186 TH/MM3 (150-450); RED CELL DISTRIBUTION WIDTH 18.1 % (11.6-17.2)
[2017-08-24 05:23] LABS: INTERNATIONAL NORMALIZED RATIO 1.3 RATIO
[2017-08-24 05:49] LABS: ALT (GPT) 163 U/L (12-78); AST (GOT) 114 U/L (15-37); BICARBONATE 24.7 MEQ/L (21.0-32.0); BLOOD UREA NITROGEN 22 MG/DL (7-18); CHLORIDE 102 MEQ/L (98-107); CREATININE 1.11 MG/DL (0.60-1.30); GLOMERULAR FILTRATION RATE 65 ML/MIN (>89); GLUCOSE,RANDOM 141 MG/DL (74-106); SODIUM (NA) 138 MEQ/L (136-145)
[2017-08-24 05:53] LABS: ALKALINE PHOSPHATASE 143 U/L (45-117); TOTAL BILIRUBIN ADULT 0.6 MG/DL (0.2-1.0); TOTAL PROTEIN 6.6 GM/DL (6.4-8.2)
[2017-08-24] MEDS: ENOXAPARIN SODIUM 80 MG/0.8 ML SYRINGE SQ SCH ×2 (06:22→18:28)
--- NOTE | 2017-08-24 08:38 | PD.CARD.PN ---
Subjective Subjective Remarks SOB improving. Chest pain ongoing but improving Objective Medications Current Medications Medications (Trade) Dose Ordered Sig/Keiko Route Start Time Stop Time Status Last Admin (NS Flush) 2 ml UNSCH PRN IVF 08/22/17 23:45 (D50w (Vial) Inj) 50 ml UNSCH PRN IV PUSH 08/23/17 04:00 (Glucagon Inj) 1 mg UNSCH PRN OTHER 08/23/17 04:00 (NovoLOG SUPPLEMENTAL SCALE) 1 ACHS SLIDING SCALE SQ 08/23/17 08:00 08/23/17 18:16 (NS Flush) 2 ml UNSCH PRN IV FLUSH 08/23/17 04:00 (NS Flush) 2 ml BID IV FLUSH 08/23/17 09:00 08/23/17 21:46 (Zofran Inj) 4 mg Q6H PRN IVP 08/23/17 04:00 (Tylenol) 650 mg Q6H PRN PO 08/23/17 04:00 (Sagamore 5-325 Mg) 1 tab Q4H PRN PO 08/23/17 04:00 (Sagamore 10-325 Mg) 1 tab Q4H PRN PO 08/23/17 04:00 08/23/17 15:21 (Mela-Colace) 1 tab BID PO 08/23/17 09:00 08/23/17 21:45 (Milk Of Magnesia Liq) 30 ml Q12H PRN PO 08/23/17 04:00 (Senokot) 17.2 mg Q12H PRN PO 08/23/17 04:00 (Dulcolax Supp) 10 mg DAILY PRN RECTAL 08/23/17 04:00 (Lactulose Liq) 30 ml DAILY PRN PO 08/23/17 04:00 (Coreg) 3.125 mg BID PO 08/23/17 09:00 08/23/17 21:45 (KlonoPIN) 1 mg Q8HR PRN PO 08/23/17 04:00 08/23/17 21:45 (Prinivil) 5 mg DAILY PO 08/23/17 09:00 08/23/17 10:44 (Aldactone) 25 mg DAILY PO 08/23/17 09:00 08/23/17 10:45 (Coumadin) 5 mg DAILY PO 08/23/17 09:00 08/23/17 10:44 (Nitroglycerin 2% Oint) 0.5 inch Q6HR PRN TOPICAL 08/23/17 04:00 (Lovenox Inj) 70 mg Q12H SQ 08/23/17 06:00 08/24/17 06:22 (Lasix Inj) 40 mg BID@,18 IV PUSH 08/24/17 09:00 UNV Vital Signs / I&O Vital Signs Date Time Temp Pulse Resp B/P (MAP) Pulse Ox O2 Delivery O2 Flow Rate FiO2 08/24/17 04:51 97.8 83 16 121/82 (95) 95 08/24/17 04:00 78 08/24/17 00:01 72 08/23/17 23:49 98.1 80 16 100/58 (72) 96 08/23/17 20:04 96 08/23/17 19:49 98.0 90 20 118/86 (97) 99 08/23/17 16:17 99.2 60 18 110/62 (78) 98 08/23/17 10:46 97.9 68 18 110/70 (83) 96 I/O 08/23/17 08/23/17 08/23/17 08/24/17 08/24/17 08/24/17 07:00 15:00 23:00 07:00 15:00 23:00 Intake Total 100 ml Output Total 2650 ml 700 ml Balance -2550 ml -700 ml IV Total 100 ml Output Urine Total 2650 ml 700 ml # Voids 1 Physical Exam In NAD JVD present Chest diminished BS matthew bases CV S1S2 RRR No edema Laboratory Laboratory Tests Test 08/23/17 13:15 08/23/17 17:00 08/24/17 04:23 Troponin I 0.02 NG/ML 0.02 NG/ML White Blood Count 6.0 TH/MM3 Red Blood Count 4.40 MIL/MM3 Hemoglobin 12.7 GM/DL Hematocrit 38.2 % Mean Corpuscular Volume 86.9 FL Mean Corpuscular Hemoglobin 28.9 PG Mean Corpuscular Hemoglobin Concent 33.3 % Red Cell Distribution Width 18.1 % Platelet Count 186 TH/MM3 Mean Platelet Volume 8.6 FL Neutrophils (%) (Auto) 54.7 % Lymphocytes (%) (Auto) 34.4 % Monocytes (%) (Auto) 6.6 % Eosinophils (%) (Auto) 3.6 % Basophils (%) (Auto) 0.7 % Neutrophils # (Auto) 3.3 TH/MM3 Lymphocytes # (Auto) 2.1 TH/MM3 Monocytes # (Auto) 0.4 TH/MM3 Eosinophils # (Auto) 0.2 TH/MM3 Basophils # (Auto) 0.0 TH/MM3 CBC Comment DIFF FINAL Differential Comment Prothrombin Time 13.0 SEC Prothromb Time International Ratio 1.3 RATIO Blood Urea Nitrogen 22 MG/DL Creatinine 1.11 MG/DL Random Glucose 141 MG/DL Total Protein 6.6 GM/DL Albumin 3.0 GM/DL Calcium Level 9.0 MG/DL Alkaline Phosphatase 143 U/L Aspartate Amino Transf (AST/SGOT) 114 U/L Alanine Aminotransferase (ALT/SGPT) 163 U/L Total Bilirubin 0.6 MG/DL Sodium Level 138 MEQ/L Potassium Level 3.6 MEQ/L Chloride Level 102 MEQ/L Carbon Dioxide Level 24.7 MEQ/L Anion Gap 11 MEQ/L Estimat Glomerular Filtration Rate 65 ML/MIN Imaging Last [address] Angiography 08/23/17 0000 Signed Impressions: Service Date/Time: Wednesday, August 23, 2017 02:27 - CONCLUSION: 1. Negative for pulmonary embolus. 2. Small bilateral pleural effusions. 3. Peribronchial thickening with mild distal airway disease at both lung bases. 4. Mild mediastinal adenopathy relatively stable over the last year. Jesus Henry MD Chest X-Ray 08/22/17 2344 Signed Impressions: Service Date/Time: Tuesday, August 22, 2017 23:59 - CONCLUSION: 1. Mild edema pattern. Trace pleural fluid. Findings are most characteristic of mild congestive heart failure. Jesus Henry MD Assessment and Plan Problem List: (1) Acute on chronic systolic (congestive) heart failure ICD Codes: I50.23 - Acute on chronic systolic (congestive) heart failure Plan: Cont diuresis. K+ slightly lower so I added PO KCL. Lasix was only 20mg IV bid so I upped to 40mg IV bid. Does not have edema. Advise making sure CXR clear before switching to PO diuretic. Recommend torsemide in place of furosemide PO. (2) Chest pain ICD Codes: R07.9 - Chest pain, unspecified Status: Acute Plan: Unclear as to cause. ? wall stress from CHF. Troponins are negative. Change NTP to Imdur 30mg once more stable.. (3) Acute on chronic systolic CHF (congestive heart failure), NYHA class 3 ICD Codes: I50.23 - Acute on chronic systolic (congestive) heart failure (4) Non-ischemic cardiomyopathy ICD Codes: I42.8 - Other cardiomyopathies Status: Acute (5) Coronary artery disease ICD Codes: I25.10 - Atherosclerotic heart disease of [place] coronary artery without angina pectoris Plan: mostly distal =/ small vessel disease. Nothing to revascularize based on recent cath. (6) S/P ICD (internal cardiac defibrillator) procedure ICD Codes: Z95.810 - Presence of automatic (implantable) cardiac defibrillator Status: Acute Assessment and Plan Im out of town the rest of the week. Dr. Alberto or Jelani will follow up. Problem Qualifiers (1) Chest pain: Qualified Codes: R07.9 - Chest pain, unspecified Tung Baires MD Aug 24, 2017 08:38
[2017-08-24] MEDS: SODIUM CHLORIDE 0.9% FLUSH 10 ML FLUSH IV FLUSH SCH ×2 (09:40→22:00)
[2017-08-24] MEDS: INSULIN ASPART SUPPLEMENTAL SCALE SQ SCH ×4 (09:40→22:05)
[2017-08-24] MEDS: SPIRONOLACTONE 25 MG TAB PO SCH (09:41)
[2017-08-24] MEDS: WARFARIN SOD 5 MG TAB PO SCH (09:41)
[2017-08-24] MEDS: LISINOPRIL 5 MG TAB PO SCH (09:41)
[2017-08-24] MEDS: POTASSIUM CHLORIDE 20 MEQ CONTROLLED RELEASE TAB PO SCH ×3 (09:41→18:28)
[2017-08-24] MEDS: DOCUSATE SODIUM 50 MG/SENNA 8.6 MG TAB PO SCH ×2 (09:41→21:58)
[2017-08-24] MEDS: CARVEDILOL 3.125 MG TAB PO SCH ×2 (09:41→21:58)
[2017-08-24] MEDS: FUROSEMIDE 20 MG/2 ML VIAL IV PUSH SCH ×2 (09:42→18:28)
[2017-08-24] MEDS: ACETAMINOPHEN/HYDROcodone 325 MG/10 MG TAB PO PRN (09:49)
--- NOTE | 2017-08-24 10:12 | HHI.PR ---
Subjective Remarks Patient says her shortness of breath slightly better today. He is very angry about his diet, would like to be on regular diet. Blood sugars in the 300s last night. Subsequently in the 60s this morning likely secondary to patient not having dinner. Recommend no outside food. Objective Vital Signs Date Time Temp Pulse Resp B/P (MAP) Pulse Ox O2 Delivery O2 Flow Rate FiO2 08/24/17 08:32 97.3 79 18 130/82 (98) 99 08/24/17 04:51 97.8 83 16 121/82 (95) 95 08/24/17 04:00 78 08/24/17 00:01 72 08/23/17 23:49 98.1 80 16 100/58 (72) 96 08/23/17 20:04 96 08/23/17 19:49 98.0 90 20 118/86 (97) 99 08/23/17 16:17 99.2 60 18 110/62 (78) 98 08/23/17 10:46 97.9 68 18 110/70 (83) 96 I/O 08/23/17 08/23/17 08/23/17 08/24/17 08/24/17 08/24/17 07:00 15:00 23:00 07:00 15:00 23:00 Intake Total 100 ml Output Total 2650 ml 700 ml Balance -2550 ml -700 ml IV Total 100 ml Output Urine Total 2650 ml 700 ml # Voids 1 Result Diagram: 08/24/17 0423 08/24/17 0423 Objective Remarks GENERAL: Patient lying in bed. Appears comfortable. SKIN: Warm and dry. HEAD: Normocephalic. EYES: No scleral icterus. No injection or drainage. NECK: Supple, trachea midline. Positive JVD. CARDIOVASCULAR: Regular rate and rhythm without murmurs, gallops, or rubs. RESPIRATORY: Breath sounds equal bilaterally. No accessory muscle use. GASTROINTESTINAL: Abdomen soft, non-tender, nondistended. MUSCULOSKELETAL: No cyanosis. Trace edema. BACK: Nontender without obvious deformity. No CVA tenderness. A/P Assessment and Plan //CHF: Acute on Chronic. Systolic. Echo 11/01/16 w/ EF 15%, s/p AICD, BNP 3206 , CXR w/ mild congestive heart failure, CTA Pulm negative for PE, mild pleural effusion, images reviewed by me. S/p Lasix 40mg IV in ER. Continue w/ Lasix 40mg IV bid, Monitor I/O, Fluid Restriction. Follows w/ Dr. Henry as outpatient, will consult for further evaluation/recommendations as recent admit 07/17- for similar presentation. = Improving. Appreciate cardiology assistance. // Chest Pain: acute onset substernal chest pain, now relieved after NTG. Initial trop 0.02, repeat trop 0.03, check serial cardiac enzymes to trend to eval for possible ischemia. NTG prn, Morphine ALLERGY. Continue home medications. 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 Bridge w/ Lovenox 70mg bid. = INR continues subtherapeutic at 1.3. Continue bridging. // DM: Sliding scale w/ Accu-Cheks. Hold Metformin for possible cardiac intervention. = Patient would like diet liberalized, however //DVT Prophylaxis: Lovenox/Coumadin Discharge Planning Likely discharge tomorrow when improved. Sadiq Restrepo MD Aug 24, 2017 10:12
[2017-08-24] MEDS: clonazePAM 1 MG TAB PO PRN (19:28)
[2017-08-25] VITALS (11 sets, daily range): BP systolic 91–134; BP diastolic 58–90; PULSE 57–86; RESP 14–20; TEMP 97.4–98.6; O2SAT 96–99
[2017-08-25] MEDS: ENOXAPARIN SODIUM 80 MG/0.8 ML SYRINGE SQ SCH ×2 (05:08→18:38)
[2017-08-25 05:38] LABS: AUTOMATED NEUTROPHIL # 3.9 TH/MM3 (1.8-7.7); BASOPHIL # 0.1 TH/MM3 (0-0.2); BASOPHIL % 1.5 % (0.0-2.0); EOSINOPHIL # 0.2 TH/MM3 (0-0.4); EOSINOPHIL % 3.2 % (0.0-4.0); HEMATOCRIT 45.4 % (39.0-51.0); HEMOGLOBIN 15.1 GM/DL (13.0-17.0); LYMPH % 34.2 % (9.0-44.0); LYMPHOCYTE # 2.4 TH/MM3 (1.0-4.8); MEAN CELL VOLUME 87.6 FL (80.0-100.0); MEAN CORPUSCULAR HEMOGLOBIN 29.1 PG (27.0-34.0); MEAN CORPUSCULAR HGB CONC 33.3 % (32.0-36.0); MEAN PLATELET VOLUME 8.6 FL (7.0-11.0); MONOCYTE # 0.4 TH/MM3 (0-0.9); NEUT % 55.1 % (16.0-70.0); PLATELET COUNT 241 TH/MM3 (150-450); RED BLOOD COUNT 5.19 MIL/MM3 (4.50-5.90); RED CELL DISTRIBUTION WIDTH 18.1 % (11.6-17.2); WHITE BLOOD COUNT 7.1 TH/MM3 (4.0-11.0)
[2017-08-25 06:03] LABS: BICARBONATE 28.3 MEQ/L (21.0-32.0); CALCIUM 9.5 MG/DL (8.5-10.1); CREATININE 1.22 MG/DL (0.60-1.30); MAGNESIUM 1.9 MG/DL (1.5-2.5)
--- NOTE | 2017-08-25 08:54 | HHI.PR ---
Subjective Remarks Follow up CHF. Patient still reporting chest pain, which is unchanged. Pain is intermittent. Also reporting ongoing dyspnea. Wants his diet changed so he can have cheese. Objective Vitals Vital Signs Date Time Temp Pulse Resp B/P (MAP) Pulse Ox O2 Delivery O2 Flow Rate FiO2 08/25/17 08:35 97.6 80 20 128/90 (103) 99 08/25/17 04:14 98.0 77 18 117/75 (89) 98 08/25/17 04:03 73 08/25/17 00:01 86 08/24/17 21:36 98.6 82 14 110/70 (83) 98 08/24/17 20:06 84 08/24/17 17:25 97.4 83 18 122/75 (91) 95 08/24/17 13:07 97.6 83 18 119/82 (94) 98 Result Diagram: 08/25/17 0525 08/25/[address] Angiography 08/23/17 0000 Signed Impressions: Service Date/Time: Wednesday, August 23, 2017 02:27 - CONCLUSION: 1. Negative for pulmonary embolus. 2. Small bilateral pleural effusions. 3. Peribronchial thickening with mild distal airway disease at both lung bases. 4. Mild mediastinal adenopathy relatively stable over the last year. Jesus Henry MD Chest X-Ray 08/22/17 5926 Signed Impressions: Service Date/Time: Tuesday, August 22, 2017 23:59 - CONCLUSION: 1. Mild edema pattern. Trace pleural fluid. Findings are most characteristic of mild congestive heart failure. Jesus Henry MD Objective Remarks General: Elderly male in no acute distress. Heart: Regular rate and rhythm. No murmur. Lungs: Mild bibasilar crackles. Breathing is nonlabored. Abdomen: Soft, nontender, nondistended. Extremities: No lower extremity edema. Psych: Alert and oriented. Procedures None Urinary Catheter: No Vascular Central Line Catheter: No A/P Problem List: (1) CHF (congestive heart failure) ICD Code: I50.9 - Heart failure, unspecified Status: Chronic (2) Chest pain ICD Code: R07.9 - Chest pain, unspecified Status: Acute (3) Anticoagulated on Coumadin ICD Code: Z51.81 - Encounter for therapeutic drug level monitoring; Z79.01 - [facility] (current) use of anticoagulants (4) DM (diabetes mellitus) ICD Code: E11.9 - Type 2 diabetes mellitus without complications Status: Chronic Assessment and Plan 1. Acute exacerbation of chronic systolic congestive heart failure: Echo showed ejection fraction of 15%. Patient is status post AICD placement. Continue diuresis. Appreciate cardiology recommendations. 2. Chest pain: Patient continues to have intermittent substernal chest pain. Serial cardiac enzymes are negative. Appreciate cardiology recommendations. 3. Chronic anticoagulation secondary to history of PE, anti-cardio phospholipid syndrome: INR subtherapeutic. Continue Coumadin. Bridged with Lovenox. INR is pending today. 4. Diabetes mellitus: Monitor Accu-Cheks and cover with sliding scale insulin. Metformin on hold. Diabetic diet. 5. DVT prophylaxis: Lovenox, Coumadin. Discharge Planning Pending further clinical improvement, cardiology clearance. Problem Qualifiers (1) CHF (congestive heart failure): Qualified Codes: I50.9 - Heart failure, unspecified (2) Chest pain: Qualified Codes: R07.9 - Chest pain, unspecified Jalil Goodwin MD Aug 25, 2017 08:54
[2017-08-25] MEDS: CARVEDILOL 3.125 MG TAB PO SCH ×2 (09:07→22:13)
[2017-08-25] MEDS: DOCUSATE SODIUM 50 MG/SENNA 8.6 MG TAB PO SCH ×2 (09:07→21:00)
[2017-08-25] MEDS: SODIUM CHLORIDE 0.9% FLUSH 10 ML FLUSH IV FLUSH SCH ×2 (09:07→22:13)
[2017-08-25] MEDS: LISINOPRIL 5 MG TAB PO SCH (09:07)
[2017-08-25] MEDS: SPIRONOLACTONE 25 MG TAB PO SCH (09:07)
[2017-08-25] MEDS: FUROSEMIDE 20 MG/2 ML VIAL IV PUSH SCH ×2 (09:07→18:38)
[2017-08-25] MEDS: POTASSIUM CHLORIDE 20 MEQ CONTROLLED RELEASE TAB PO SCH ×3 (09:07→18:38)
[2017-08-25] MEDS: WARFARIN SOD 5 MG TAB PO SCH (09:08)
[2017-08-25] MEDS: INSULIN ASPART SUPPLEMENTAL SCALE SQ SCH ×4 (09:09→22:14)
[2017-08-25] MEDS: clonazePAM 1 MG TAB PO PRN ×2 (11:47→23:27)
[2017-08-25 12:45] LABS: INTERNATIONAL NORMALIZED RATIO 1.4 RATIO; PROTHROMBIN TIME - PATIENT 13.8 SEC (9.8-11.6)
--- NOTE | 2017-08-25 14:17 | PD.CARD.PN ---
Subjective Subjective Remarks Feels like breathing is a bit better Diuresed 2.5L yesterday Objective Medications Current Medications Medications (Trade) Dose Ordered Sig/Keiko Route Start Time Stop Time Status Last Admin (NS Flush) 2 ml UNSCH PRN IVF 08/22/17 23:45 (D50w (Vial) Inj) 50 ml UNSCH PRN IV PUSH 08/23/17 04:00 (Glucagon Inj) 1 mg UNSCH PRN OTHER 08/23/17 04:00 (NovoLOG SUPPLEMENTAL SCALE) 1 ACHS SLIDING SCALE SQ 08/23/17 08:00 08/25/17 13:07 (NS Flush) 2 ml UNSCH PRN IV FLUSH 08/23/17 04:00 (NS Flush) 2 ml BID IV FLUSH 08/23/17 09:00 08/25/17 09:07 (Zofran Inj) 4 mg Q6H PRN IVP 08/23/17 04:00 (Tylenol) 650 mg Q6H PRN PO 08/23/17 04:00 ([place] 5-325 Mg) 1 tab Q4H PRN PO 08/23/17 04:00 ([place] 10-325 Mg) 1 tab Q4H PRN PO 08/23/17 04:00 08/24/17 09:49 (Mela-Colace) 1 tab BID PO 08/23/17 09:00 08/25/17 09:07 (Milk Of Magnesia Liq) 30 ml Q12H PRN PO 08/23/17 04:00 (Senokot) 17.2 mg Q12H PRN PO 08/23/17 04:00 (Dulcolax Supp) 10 mg DAILY PRN RECTAL 08/23/17 04:00 (Lactulose Liq) 30 ml DAILY PRN PO 08/23/17 04:00 (Coreg) 3.125 mg BID PO 08/23/17 09:00 08/25/17 09:07 (KlonoPIN) 1 mg Q8HR PRN PO 08/23/17 04:00 08/25/17 11:47 (Prinivil) 5 mg DAILY PO 08/23/17 09:00 08/25/17 09:07 (Aldactone) 25 mg DAILY PO 08/23/17 09:00 08/25/17 09:07 (Coumadin) 5 mg DAILY PO 08/23/17 09:00 08/25/17 09:08 (Nitroglycerin 2% Oint) 0.5 inch Q6HR PRN TOPICAL 08/23/17 04:00 (Lovenox Inj) 70 mg Q12H SQ 08/23/17 06:00 08/25/17 05:08 (Lasix Inj) 40 mg BID@,18 IV PUSH 08/24/17 09:00 08/25/17 09:07 (KCl) 20 meq TID PO 08/24/17 09:00 08/25/17 13:07 Vital Signs / I&O Vital Signs Date Time Temp Pulse Resp B/P (MAP) Pulse Ox O2 Delivery O2 Flow Rate FiO2 08/25/17 11:54 97.5 75 18 107/69 (82) 96 08/25/17 08:35 97.6 80 20 128/90 (103) 99 08/25/17 04:14 98.0 77 18 117/75 (89) 98 08/25/17 04:03 73 08/25/17 00:01 86 08/24/17 21:36 98.6 82 14 110/70 (83) 98 08/24/17 20:06 84 08/24/17 17:25 97.4 83 18 122/75 (91) 95 Physical Exam GENERAL: NAD, AAOx3 SKIN: Warm and dry. HEAD: Atraumatic. Normocephalic. EYES: Pupils equal and round. No scleral icterus. No injection or drainage. ENT: No nasal bleeding or discharge. Mucous membranes pink and moist. NECK: Trachea midline. No JVD. CARDIOVASCULAR: Regular rate and rhythm. RESPIRATORY: No accessory muscle use. Decreased breath sounds bilaterally GASTROINTESTINAL: Abdomen soft, non-tender, nondistended. Hepatic and splenic margins not palpable. MUSCULOSKELETAL: Extremities without clubbing, cyanosis, or edema. No obvious deformities. NEUROLOGICAL: Awake and alert. No obvious cranial nerve deficits. Motor grossly within normal limits. Five out of 5 muscle strength in the arms and legs. Normal speech. PSYCHIATRIC: Appropriate mood and affect; insight and judgment normal. Laboratory Laboratory Tests Test 08/25/17 05:25 08/25/17 11:48 White Blood Count 7.1 TH/MM3 Red Blood Count 5.19 MIL/MM3 Hemoglobin 15.1 GM/DL Hematocrit 45.4 % Mean Corpuscular Volume 87.6 FL Mean Corpuscular Hemoglobin 29.1 PG Mean Corpuscular Hemoglobin Concent 33.3 % Red Cell Distribution Width 18.1 % Platelet Count 241 TH/MM3 Mean Platelet Volume 8.6 FL Neutrophils (%) (Auto) 55.1 % Lymphocytes (%) (Auto) 34.2 % Monocytes (%) (Auto) 6.0 % Eosinophils (%) (Auto) 3.2 % Basophils (%) (Auto) 1.5 % Neutrophils # (Auto) 3.9 TH/MM3 Lymphocytes # (Auto) 2.4 TH/MM3 Monocytes # (Auto) 0.4 TH/MM3 Eosinophils # (Auto) 0.2 TH/MM3 Basophils # (Auto) 0.1 TH/MM3 CBC Comment DIFF FINAL Differential Comment Blood Urea Nitrogen 26 MG/DL Creatinine 1.22 MG/DL Random Glucose 153 MG/DL Calcium Level 9.5 MG/DL Magnesium Level 1.9 MG/DL Sodium Level 136 MEQ/L Potassium Level 4.3 MEQ/L Chloride Level 99 MEQ/L Carbon Dioxide Level 28.3 MEQ/L Anion Gap 9 MEQ/L Estimat Glomerular Filtration Rate 59 ML/MIN Prothrombin Time 13.8 SEC Prothromb Time International Ratio 1.4 RATIO Assessment and Plan Problem List: (1) Acute on chronic systolic (congestive) heart failure ICD Codes: I50.23 - Acute on chronic systolic (congestive) heart failure (2) Chest pain ICD Codes: R07.9 - Chest pain, unspecified Status: Acute (3) Acute on chronic systolic CHF (congestive heart failure), NYHA class 3 ICD Codes: I50.23 - Acute on chronic systolic (congestive) heart failure (4) Non-ischemic cardiomyopathy ICD Codes: I42.8 - Other cardiomyopathies Status: Acute (5) Coronary artery disease ICD Codes: I25.10 - Atherosclerotic heart disease of [place] coronary artery without angina pectoris (6) S/P ICD (internal cardiac defibrillator) procedure ICD Codes: Z95.810 - Presence of automatic (implantable) cardiac defibrillator Status: Acute Assessment and Plan 1) Cardiomyopathy EF 15% 2) Acute CHF Con't diuresis Plan to change to Torsemide on discharge Con't BB/JENNIFER-I/Spirolactone 3) Possible discharge in the morning, will re-evaluate Problem Qualifiers (1) Chest pain: Qualified Codes: R07.9 - Chest pain, unspecified Maikel Beltran DO Aug 25, 2017 14:17
[2017-08-25] MEDS: ACETAMINOPHEN/HYDROcodone 325 MG/10 MG TAB PO PRN (22:14)
[2017-08-26] VITALS (13 sets, daily range): BP systolic 91–118; BP diastolic 52–80; PULSE 68–81; RESP 12–20; TEMP 97.3–98.4; O2SAT 92–100
[2017-08-26] MEDS: ENOXAPARIN SODIUM 80 MG/0.8 ML SYRINGE SQ SCH ×2 (06:06→17:46)
[2017-08-26] MEDS: SPIRONOLACTONE 25 MG TAB PO SCH (08:15)
[2017-08-26] MEDS: SODIUM CHLORIDE 0.9% FLUSH 10 ML FLUSH IV FLUSH SCH ×2 (08:15→22:12)
[2017-08-26] MEDS: DOCUSATE SODIUM 50 MG/SENNA 8.6 MG TAB PO SCH ×2 (08:16→22:11)
[2017-08-26] MEDS: POTASSIUM CHLORIDE 20 MEQ CONTROLLED RELEASE TAB PO SCH ×3 (08:16→17:47)
[2017-08-26] MEDS: CARVEDILOL 3.125 MG TAB PO SCH ×2 (08:16→22:11)
[2017-08-26] MEDS: WARFARIN SOD 5 MG TAB PO SCH (08:16)
[2017-08-26] MEDS: FUROSEMIDE 20 MG/2 ML VIAL IV PUSH SCH ×2 (08:16→17:47)
[2017-08-26] MEDS: LISINOPRIL 5 MG TAB PO SCH (08:16)
--- NOTE | 2017-08-26 09:03 | HHI.PR ---
Subjective Remarks Follow up CHF, elevated LFTs. Patient still reporting chest pain, dyspnea. States that he does feel a little better overall. Hopes to go home soon. Objective Vitals Vital Signs Date Time Temp Pulse Resp B/P (MAP) Pulse Ox O2 Delivery O2 Flow Rate FiO2 08/26/17 08:01 98.0 75 18 118/67 (84) 95 08/26/17 05:29 97.6 72 12 117/57 (77) 96 08/26/17 04:15 68 08/26/17 00:47 72 08/26/17 00:00 97.3 72 20 110/67 (81) 99 08/25/17 22:10 84 16 122/80 (94) 08/25/17 20:43 80 08/25/17 20:39 98.6 57 14 91/58 (69) 98 08/25/17 17:32 97.4 81 20 134/78 (96) 96 08/25/17 15:09 77 08/25/17 11:54 97.5 75 18 107/69 (82) 96 I/O 08/25/17 08/25/17 08/25/17 08/26/17 08/26/17 08/26/17 07:00 15:00 23:00 07:00 15:00 23:00 Intake Total 480 ml Output Total 3050 ml 700 ml Balance -2570 ml -700 ml Intake Oral 480 ml Output Urine Total 3050 ml 700 ml Result Diagram: 08/25/17 0525 08/25/17 [address] Angiography 08/23/17 0000 Signed Impressions: Service Date/Time: Wednesday, August 23, 2017 02:27 - CONCLUSION: 1. Negative for pulmonary embolus. 2. Small bilateral pleural effusions. 3. Peribronchial thickening with mild distal airway disease at both lung bases. 4. Mild mediastinal adenopathy relatively stable over the last year. Jesus Henry MD Chest X-Ray 08/22/17 0212 Signed Impressions: Service Date/Time: Tuesday, August 22, 2017 23:59 - CONCLUSION: 1. Mild edema pattern. Trace pleural fluid. Findings are most characteristic of mild congestive heart failure. Jesus Henry MD Objective Remarks General: Elderly male in no acute distress. Heart: Regular rate and rhythm. No murmur. Lungs: Mild bibasilar crackles. Breathing is nonlabored. Abdomen: Soft, nontender, nondistended. Extremities: No lower extremity edema. Psych: Alert and oriented. 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 Acute exacerbation of chronic systolic congestive heart failure: Echo showed ejection fraction of 15%. Patient is status post AICD placement. Continue diuresis with IV Lasix. Appreciate cardiology recommendations. 2. Chest pain: Patient continues to have intermittent substernal chest pain. Serial cardiac enzymes are negative. Appreciate cardiology recommendations. 3. 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 Continue Coumadin. Bridged with Lovenox. INR is pending today. 4. Diabetes mellitus: Monitor Accu-Cheks and cover with sliding scale insulin. Metformin on hold. Diabetic diet. 5. DVT prophylaxis: Lovenox, Coumadin. Discharge Planning Pending cardiology clearance. Problem Qualifiers (1) CHF (congestive heart failure): Qualified Codes: I50.9 - Heart failure, unspecified (2) Chest pain: Qualified Codes: R07.9 - Chest pain, unspecified Jalil Goodwin MD Aug 26, 2017 09:03
[2017-08-26] MEDS: INSULIN ASPART SUPPLEMENTAL SCALE SQ SCH ×4 (09:39→22:11)
[2017-08-26] MEDS: ACETAMINOPHEN/HYDROcodone 325 MG/10 MG TAB PO PRN (09:40)
[2017-08-26 11:16] LABS: INTERNATIONAL NORMALIZED RATIO 1.4 RATIO
[2017-08-26 11:42] LABS: ALBUMIN 3.3 GM/DL (3.4-5.0); AST (GOT) 40 U/L (15-37); BICARBONATE 26.9 MEQ/L (21.0-32.0); BLOOD UREA NITROGEN 30 MG/DL (7-18); CALCIUM 9.5 MG/DL (8.5-10.1); CHLORIDE 96 MEQ/L (98-107); CREATININE 1.22 MG/DL (0.60-1.30); GLOMERULAR FILTRATION RATE 59 ML/MIN (>89); GLUCOSE,RANDOM 284 MG/DL (74-106); SODIUM (NA) 131 MEQ/L (136-145)
[2017-08-26 11:46] LABS: ALKALINE PHOSPHATASE 156 U/L (45-117); TOTAL BILIRUBIN ADULT 0.6 MG/DL (0.2-1.0); TOTAL PROTEIN 7.5 GM/DL (6.4-8.2)
[2017-08-26 12:41] LABS: ALT (GPT) 101 U/L (12-78)
--- NOTE | 2017-08-26 17:35 | RADRPT ---
EXAM DATE/TIME: 08/26/2017 16:28 [facility] COMPARISON: CT ABDOMEN & PELVIS W CONTRAST, July 23, 2016, 17:42. CT PULMONARY ANGIOGRAM, July 17, 2017, 1 6:33. CT PULMONARY ANGIOGRAM, August 23, 2017, 2:27. US ABDOMEN - LIVER, November 22, 2016, 18:11. EXTERNAL COMPARISON : [facility], CT ABDOMEN & PELVIS W CONTRAST August 25, 2011. [facility], CT ABDOME N & PELVIS W CONTRAST July 09, 2007. INDICATIONS : Increased lab values. MEDICAL HISTORY : Hypercholesterolemia. Hypertension. CVA. Seizaures. Congestive heart failure. Coronary artery disea se. Diabetes. Substance use. MRSA. SURGICAL HISTORY : Cholecystectomy. Appendectomy. Orthopedic surgery: Back, neck and knee. ENCOUNTER: Subsequent ACUITY: 7-11 months PAIN SCORE: 3/10 LOCATION: Abdomen. MEASUREMENTS: LIVER: 16.9 cm length COMMON DUCT: 6 mm RIGHT KIDNEY: 12.3 x 4.9 x 4.6 cm SPLEEN: 11.2 cm length FINDINGS: LIVER: There is a coarse but homogeneous echotexture without focal lesion or ductal dilatation. Hepatopedal flow seen in the portal vein COMMON DUCT: No intraluminal mass or stone visualized. GALLBLADDER: History of cholecystectomy. There are multiple echogenic and shadowing areas within the gallbladder fossa having sonographic appearance characteristic of multiple calcifications. No calcificatio ns have been seen in the gallbladder fossa on prior CT adjacent to hemoclips in the corinne. PANCREAS: Not well seen RIGHT KIDNEY: No hydronephrosis, stone or mass. SPLEEN: No focal lesion. CONCLUSION: 1. Hepatomegaly without focal lesion. 2. Multiple calcifications in the gallbladder fossa adjacent to hemoclips. Kalyan Hayes MD on August 26, 2017 at 17:28 Board Certified Radiologist. This report was verified electronically.
--- NOTE | 2017-08-26 17:40 | PD.CARD.PN ---
Subjective Subjective Remarks Feels like breathing is a bit better, still not great per the patient Still diuresing well Objective Medications Current Medications Medications (Trade) Dose Ordered Sig/Keiko Route Start Time Stop Time Status Last Admin (NS Flush) 2 ml UNSCH PRN IVF 08/22/17 23:45 (D50w (Vial) Inj) 50 ml UNSCH PRN IV PUSH 08/23/17 04:00 (Glucagon Inj) 1 mg UNSCH PRN OTHER 08/23/17 04:00 (NovoLOG SUPPLEMENTAL SCALE) 1 ACHS SLIDING SCALE SQ 08/23/17 08:00 08/26/17 12:19 (NS Flush) 2 ml UNSCH PRN IV FLUSH 08/23/17 04:00 (NS Flush) 2 ml BID IV FLUSH 08/23/17 09:00 08/26/17 08:15 (Zofran Inj) 4 mg Q6H PRN IVP 08/23/17 04:00 (Tylenol) 650 mg Q6H PRN PO 08/23/17 04:00 ([place] 5-325 Mg) 1 tab Q4H PRN PO 08/23/17 04:00 ([place] 10-325 Mg) 1 tab Q4H PRN PO 08/23/17 04:00 08/26/17 09:40 (Mela-Colace) 1 tab BID PO 08/23/17 09:00 08/25/17 09:07 (Milk Of Magnesia Liq) 30 ml Q12H PRN PO 08/23/17 04:00 (Senokot) 17.2 mg Q12H PRN PO 08/23/17 04:00 (Dulcolax Supp) 10 mg DAILY PRN RECTAL 08/23/17 04:00 (Lactulose Liq) 30 ml DAILY PRN PO 08/23/17 04:00 (Coreg) 3.125 mg BID PO 08/23/17 09:00 08/26/17 08:16 (KlonoPIN) 1 mg Q8HR PRN PO 08/23/17 04:00 08/25/17 23:27 (Prinivil) 5 mg DAILY PO 08/23/17 09:00 08/26/17 08:16 (Aldactone) 25 mg DAILY PO 08/23/17 09:00 08/26/17 08:15 (Coumadin) 5 mg DAILY PO 08/23/17 09:00 08/26/17 08:16 (Nitroglycerin 2% Oint) 0.5 inch Q6HR PRN TOPICAL 08/23/17 04:00 (Lovenox Inj) 70 mg Q12H SQ 08/23/17 06:00 08/26/17 06:06 (Lasix Inj) 40 mg BID@,18 IV PUSH 08/24/17 09:00 08/26/17 08:16 (KCl) 20 meq TID PO 08/24/17 09:00 08/26/17 12:20 Vital Signs / I&O Vital Signs Date Time Temp Pulse Resp B/P (MAP) Pulse Ox O2 Delivery O2 Flow Rate FiO2 08/26/17 17:04 98.4 76 18 99/80 (86) 96 08/26/17 15:17 75 08/26/17 12:09 77 08/26/17 11:04 98.3 81 18 105/65 (78) 100 08/26/17 08:10 72 08/26/17 08:01 98.0 75 18 118/67 (84) 95 08/26/17 05:29 97.6 72 12 117/57 (77) 96 08/26/17 04:15 68 08/26/17 00:47 72 08/26/17 00:00 97.3 72 20 110/67 (81) 99 08/25/17 22:10 84 16 122/80 (94) 08/25/17 20:43 80 08/25/17 20:39 98.6 57 14 91/58 (69) 98 I/O 08/25/17 08/25/17 08/25/17 08/26/17 08/26/17 08/26/17 07:00 15:00 23:00 07:00 15:00 23:00 Intake Total 480 ml Output Total 3050 ml 2600 ml 200 ml Balance -2570 ml -2600 ml -200 ml Intake Oral 480 ml Output Urine Total 3050 ml 2600 ml 200 ml Physical Exam GENERAL: NAD, AAOx3 SKIN: Warm and dry. HEAD: Atraumatic. Normocephalic. EYES: Pupils equal and round. No scleral icterus. No injection or drainage. ENT: No nasal bleeding or discharge. Mucous membranes pink and moist. NECK: Trachea midline. No JVD. CARDIOVASCULAR: Regular rate and rhythm. RESPIRATORY: No accessory muscle use. Decreased breath sounds bilaterally GASTROINTESTINAL: Abdomen soft, non-tender, nondistended. Hepatic and splenic margins not palpable. MUSCULOSKELETAL: Extremities without clubbing, cyanosis, or edema. No obvious deformities. NEUROLOGICAL: Awake and alert. No obvious cranial nerve deficits. Motor grossly within normal limits. Five out of 5 muscle strength in the arms and legs. Normal speech. PSYCHIATRIC: Appropriate mood and affect; insight and judgment normal. Laboratory Laboratory Tests Test 08/26/17 10:49 08/26/17 13:55 Prothrombin Time 14.0 SEC Prothromb Time International Ratio 1.4 RATIO Blood Urea Nitrogen 30 MG/DL Creatinine 1.22 MG/DL Random Glucose 284 MG/DL Total Protein 7.5 GM/DL Albumin 3.3 GM/DL Calcium Level 9.5 MG/DL Alkaline Phosphatase 156 U/L Aspartate Amino Transf (AST/SGOT) 40 U/L Alanine Aminotransferase (ALT/SGPT) 101 U/L Total Bilirubin 0.6 MG/DL Sodium Level 131 MEQ/L Potassium Level 4.4 MEQ/L Chloride Level 96 MEQ/L Carbon Dioxide Level 26.9 MEQ/L Anion Gap 8 MEQ/L Estimat Glomerular Filtration Rate 59 ML/MIN Assessment and Plan Problem List: (1) Acute on chronic systolic (congestive) heart failure ICD Codes: I50.23 - Acute on chronic systolic (congestive) heart failure (2) Chest pain ICD Codes: R07.9 - Chest pain, unspecified Status: Acute (3) Acute on chronic systolic CHF (congestive heart failure), NYHA class 3 ICD Codes: I50.23 - Acute on chronic systolic (congestive) heart failure (4) Non-ischemic cardiomyopathy ICD Codes: I42.8 - Other cardiomyopathies Status: Acute (5) Coronary artery disease ICD Codes: I25.10 - Atherosclerotic heart disease of [place] coronary artery without angina pectoris (6) S/P ICD (internal cardiac defibrillator) procedure ICD Codes: Z95.810 - Presence of automatic (implantable) cardiac defibrillator Status: Acute Assessment and Plan 1) Cardiomyopathy EF 15% 2) Acute CHF Con't diuresis Plan to change to Torsemide on discharge Con't BB/JENNIFER-I/Spirolactone 3) Appears compensated, although breathing not back to baseline per the patient I'm ok with discharge as long as the patient follows his weights at home, but might be better to keep 1 more night Problem Qualifiers (1) Chest pain: Qualified Codes: R07.9 - Chest pain, unspecified Maikel Beltran DO Aug 26, 2017 17:40
[2017-08-26] MEDS: clonazePAM 1 MG TAB PO PRN (17:46)
[2017-08-26] MEDS: SODIUM CHLORIDE 0.9% FLUSH 10 ML FLUSH IV FLUSH PRN (17:47)
[2017-08-27] VITALS (11 sets, daily range): BP systolic 98–117; BP diastolic 58–69; PULSE 69–83; RESP 16–20; TEMP 97.7–98.3; O2SAT 96–100
[2017-08-27] MEDS: ENOXAPARIN SODIUM 80 MG/0.8 ML SYRINGE SQ SCH ×2 (06:04→17:08)
[2017-08-27 07:12] LABS: INTERNATIONAL NORMALIZED RATIO 1.3 RATIO; PROTHROMBIN TIME - PATIENT 12.9 SEC (9.8-11.6)
[2017-08-27] MEDS: INSULIN ASPART SUPPLEMENTAL SCALE SQ SCH ×4 (08:29→21:00)
[2017-08-27] MEDS: DOCUSATE SODIUM 50 MG/SENNA 8.6 MG TAB PO SCH ×2 (08:57→21:57)
[2017-08-27] MEDS: LISINOPRIL 5 MG TAB PO SCH (08:57)
[2017-08-27] MEDS: SPIRONOLACTONE 25 MG TAB PO SCH (08:57)
[2017-08-27] MEDS: POTASSIUM CHLORIDE 20 MEQ CONTROLLED RELEASE TAB PO SCH ×3 (08:57→17:08)
[2017-08-27] MEDS: CARVEDILOL 3.125 MG TAB PO SCH ×2 (08:57→21:56)
[2017-08-27] MEDS: SODIUM CHLORIDE 0.9% FLUSH 10 ML FLUSH IV FLUSH SCH ×2 (08:57→21:56)
[2017-08-27] MEDS: FUROSEMIDE 20 MG/2 ML VIAL IV PUSH SCH ×2 (08:58→17:08)
--- NOTE | 2017-08-27 09:38 | HHI.PR ---
Subjective Remarks Follow up dyspnea, subtherapeutic INR, diabetes. Patient states that his dyspnea is "a little better today". He was short of breath when he woke up this morning, but it has improved. No chest pain. Objective Vitals Vital Signs Date Time Temp Pulse Resp B/P (MAP) Pulse Ox O2 Delivery O2 Flow Rate FiO2 08/27/17 07:24 98.3 80 20 108/58 (75) 100 08/27/17 04:43 72 08/27/17 03:14 98.1 69 16 98/62 (74) 97 08/27/17 00:03 79 08/26/17 21:57 98.1 74 16 93/52 (66) 92 08/26/17 20:26 74 08/26/17 20:18 98.3 75 16 91/61 (71) 97 08/26/17 17:04 98.4 76 18 99/80 (86) 96 08/26/17 15:17 75 08/26/17 12:09 77 08/26/17 11:04 98.3 81 18 105/65 (78) 100 I/O 08/26/17 08/26/17 08/26/17 08/27/17 08/27/17 08/27/17 07:00 15:00 23:00 07:00 15:00 23:00 Intake Total 420 ml Output Total 2600 ml 200 ml 1200 ml Balance -2600 ml -200 ml -780 ml Intake Oral 420 ml Output Urine Total 2600 ml 200 ml 1200 ml Result Diagram: 08/25/17 0525 08/26/17 1049 Imaging Last Impressions Liver Ultrasound 08/26/17 0000 Signed Impressions: Service Date/Time: Saturday, August 26, 2017 16:28 - CONCLUSION: 1. Hepatomegaly without focal lesion. 2. Multiple calcifications in the gallbladder fossa adjacent to hemoclips. Kalyan Hayes MD CT Angiography 08/23/17 0000 Signed Impressions: Service Date/Time: Wednesday, August 23, 2017 02:27 - CONCLUSION: 1. Negative for pulmonary embolus. 2. Small bilateral pleural effusions. 3. Peribronchial thickening with mild distal airway disease at both lung bases. 4. Mild mediastinal adenopathy relatively stable over the last year. Jesus Henry MD Chest X-Ray 08/22/17 7586 Signed Impressions: Service Date/Time: Tuesday, August 22, 2017 23:59 - CONCLUSION: 1. Mild edema pattern. Trace pleural fluid. Findings are most characteristic of mild congestive heart failure. Jesus Henry MD Objective Remarks General: Elderly male in no acute distress. Heart: Regular rate and rhythm. No murmur. Lungs: Mild bibasilar crackles. Breathing is nonlabored. Abdomen: Soft, nontender, nondistended. Extremities: No lower extremity edema. Psych: Alert and oriented. Procedures None Urinary Catheter: No Vascular Central Line Catheter: No A/P Problem List: (1) CHF (congestive heart failure) ICD Code: I50.9 - Heart failure, unspecified Status: Chronic (2) Chest pain ICD Code: R07.9 - Chest pain, unspecified Status: Acute (3) Anticoagulated on Coumadin ICD Code: Z51.81 - Encounter for therapeutic drug level monitoring; Z79.01 - [facility] (current) use of anticoagulants (4) DM (diabetes mellitus) ICD Code: E11.9 - Type 2 diabetes mellitus without complications Status: Chronic Assessment and Plan 1. Acute exacerbation of chronic systolic congestive heart failure: Echo showed ejection fraction of 15%. Patient is status post AICD placement. Continue diuresis with IV Lasix. Appreciate cardiology recommendations. 2. Chest pain: Patient continues to have intermittent substernal chest pain. Serial cardiac enzymes are negative. Appreciate cardiology recommendations. 3. 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 Increase Coumadin. Bridging with Lovenox. Patient states that he is unable to do Lovenox injections at home. 4. Diabetes mellitus: Monitor Accu-Cheks and cover with sliding scale insulin. Metformin on hold. Diabetic diet. 5. DVT prophylaxis: Lovenox, Coumadin. Discharge Planning Plan for discharge home soon, when cleared by Cardiology and when Lovenox can be discontinued. Problem Qualifiers (1) CHF (congestive heart failure): Qualified Codes: I50.9 - Heart failure, unspecified (2) Chest pain: Qualified Codes: R07.9 - Chest pain, unspecified Jalil Goodwin MD Aug 27, 2017 09:38
[2017-08-27 09:58] LABS: HEPATITIS A AB IGM NEGATIVE (NEGATIVE); HEPATITIS B CORE AB IGM NEGATIVE (NEGATIVE); HEPATITIS B SURFACE ANTIGEN NEGATIVE (NEGATIVE); HEPATITIS C AB IgG NEGATIVE (NEGATIVE)
--- NOTE | 2017-08-27 13:37 | PD.CARD.PN ---
Subjective Subjective Remarks Breathing better overall Still diuresing well Objective Medications Current Medications Medications (Trade) Dose Ordered Sig/Keiko Route Start Time Stop Time Status Last Admin (NS Flush) 2 ml UNSCH PRN IVF 08/22/17 23:45 (D50w (Vial) Inj) 50 ml UNSCH PRN IV PUSH 08/23/17 04:00 (Glucagon Inj) 1 mg UNSCH PRN OTHER 08/23/17 04:00 (NovoLOG SUPPLEMENTAL SCALE) 1 ACHS SLIDING SCALE SQ 08/23/17 08:00 08/27/17 13:27 (NS Flush) 2 ml UNSCH PRN IV FLUSH 08/23/17 04:00 08/26/17 17:47 (NS Flush) 2 ml BID IV FLUSH 08/23/17 09:00 08/27/17 08:57 (Zofran Inj) 4 mg Q6H PRN IVP 08/23/17 04:00 (Tylenol) 650 mg Q6H PRN PO 08/23/17 04:00 ([place] 5-325 Mg) 1 tab Q4H PRN PO 08/23/17 04:00 ([place] 10-325 Mg) 1 tab Q4H PRN PO 08/23/17 04:00 08/26/17 09:40 (Mela-Colace) 1 tab BID PO 08/23/17 09:00 08/27/17 08:57 (Milk Of Magnesia Liq) 30 ml Q12H PRN PO 08/23/17 04:00 (Senokot) 17.2 mg Q12H PRN PO 08/23/17 04:00 (Dulcolax Supp) 10 mg DAILY PRN RECTAL 08/23/17 04:00 (Lactulose Liq) 30 ml DAILY PRN PO 08/23/17 04:00 (Coreg) 3.125 mg BID PO 08/23/17 09:00 08/27/17 08:57 (KlonoPIN) 1 mg Q8HR PRN PO 08/23/17 04:00 08/26/17 17:46 (Prinivil) 5 mg DAILY PO 08/23/17 09:00 08/27/17 08:57 (Aldactone) 25 mg DAILY PO 08/23/17 09:00 08/27/17 08:57 (Nitroglycerin 2% Oint) 0.5 inch Q6HR PRN TOPICAL 08/23/17 04:00 (Lovenox Inj) 70 mg Q12H SQ 08/23/17 06:00 08/26/17 17:46 (Lasix Inj) 40 mg BID@09,18 IV PUSH 08/24/17 09:00 08/27/17 08:58 (KCl) 20 meq TID PO 08/24/17 09:00 08/27/17 12:06 (Coumadin) 7.5 mg DAILY@1600 PO 08/27/17 16:00 Vital Signs / I&O Vital Signs Date Time Temp Pulse Resp B/P (MAP) Pulse Ox O2 Delivery O2 Flow Rate FiO2 08/27/17 11:48 98.0 83 20 113/69 (84) 98 08/27/17 07:24 98.3 80 20 108/58 (75) 100 08/27/17 04:43 72 08/27/17 03:14 98.1 69 16 98/62 (74) 97 08/27/17 00:03 79 08/26/17 21:57 98.1 74 16 93/52 (66) 92 08/26/17 20:26 74 08/26/17 20:18 98.3 75 16 91/61 (71) 97 08/26/17 17:04 98.4 76 18 99/80 (86) 96 08/26/17 15:17 75 I/O 08/26/17 08/26/17 08/26/17 08/27/17 08/27/17 08/27/17 07:00 15:00 23:00 07:00 15:00 23:00 Intake Total 780 ml Output Total 2600 ml 200 ml 2350 ml Balance -2600 ml -200 ml -1570 ml Intake Oral 780 ml Output Urine Total 2600 ml 200 ml 2350 ml Physical Exam GENERAL: NAD, AAOx3 SKIN: Warm and dry. HEAD: Atraumatic. Normocephalic. EYES: Pupils equal and round. No scleral icterus. No injection or drainage. ENT: No nasal bleeding or discharge. Mucous membranes pink and moist. NECK: Trachea midline. No JVD. CARDIOVASCULAR: Regular rate and rhythm. RESPIRATORY: No accessory muscle use. Decreased breath sounds bilaterally GASTROINTESTINAL: Abdomen soft, non-tender, nondistended. Hepatic and splenic margins not palpable. MUSCULOSKELETAL: Extremities without clubbing, cyanosis, or edema. No obvious deformities. NEUROLOGICAL: Awake and alert. No obvious cranial nerve deficits. Motor grossly within normal limits. Five out of 5 muscle strength in the arms and legs. Normal speech. PSYCHIATRIC: Appropriate mood and affect; insight and judgment normal. Laboratory Laboratory Tests Test 08/26/17 13:55 08/27/17 05:45 Hepatitis A IgM Antibody NEGATIVE Hepatitis B Surface Antigen NEGATIVE Hepatitis B Core IgM Antibody NEGATIVE Hepatitis C Antibody NEGATIVE Prothrombin Time 12.9 SEC Prothromb Time International Ratio 1.3 RATIO Assessment and Plan Problem List: (1) Acute on chronic systolic (congestive) heart failure ICD Codes: I50.23 - Acute on chronic systolic (congestive) heart failure (2) Chest pain ICD Codes: R07.9 - Chest pain, unspecified Status: Acute (3) Acute on chronic systolic CHF (congestive heart failure), NYHA class 3 ICD Codes: I50.23 - Acute on chronic systolic (congestive) heart failure (4) Non-ischemic cardiomyopathy ICD Codes: I42.8 - Other cardiomyopathies Status: Acute (5) Coronary artery disease ICD Codes: I25.10 - Atherosclerotic heart disease of [place] coronary artery without angina pectoris (6) S/P ICD (internal cardiac defibrillator) procedure ICD Codes: Z95.810 - Presence of automatic (implantable) cardiac defibrillator Status: Acute Assessment and Plan 1) Cardiomyopathy EF 15% 2) Acute CHF Con't diuresis Plan to change to Torsemide on discharge Con't BB/JENNIFER-I/Spirolactone 3) INR subtherapeutic 4) Appears compensated, no further cardiovascular work up at this time Problem Qualifiers (1) Chest pain: Qualified Codes: R07.9 - Chest pain, unspecified Maikel Beltran DO Aug 27, 2017 13:37
[2017-08-27] MEDS: ACETAMINOPHEN/HYDROcodone 325 MG/10 MG TAB PO PRN ×2 (16:19→21:57)
[2017-08-27] MEDS: WARFARIN SOD 7.5 MG TAB PO SCH (16:19)
[2017-08-27] MEDS: SODIUM CHLORIDE 0.9% FLUSH 10 ML FLUSH IV FLUSH PRN (17:07)
[2017-08-27] MEDS: clonazePAM 1 MG TAB PO PRN (19:42)
[2017-08-28] VITALS (14 sets, daily range): BP systolic 83–144; BP diastolic 46–74; PULSE 54–83; RESP 18–21; TEMP 97.4–98.9; O2SAT 94–98
[2017-08-28] MEDS: ENOXAPARIN SODIUM 80 MG/0.8 ML SYRINGE SQ SCH ×2 (05:27→17:38)
[2017-08-28] MEDS: INSULIN ASPART SUPPLEMENTAL SCALE SQ SCH ×4 (08:13→22:53)
[2017-08-28] MEDS: CARVEDILOL 3.125 MG TAB PO SCH ×2 (08:24→21:00)
[2017-08-28] MEDS: LISINOPRIL 5 MG TAB PO SCH (08:24)
[2017-08-28] MEDS: POTASSIUM CHLORIDE 20 MEQ CONTROLLED RELEASE TAB PO SCH ×3 (08:24→17:37)
[2017-08-28] MEDS: SODIUM CHLORIDE 0.9% FLUSH 10 ML FLUSH IV FLUSH SCH ×2 (08:24→22:53)
[2017-08-28] MEDS: FUROSEMIDE 20 MG/2 ML VIAL IV PUSH SCH ×2 (08:25→17:37)
[2017-08-28] MEDS: SPIRONOLACTONE 25 MG TAB PO SCH (08:25)
[2017-08-28] MEDS: DOCUSATE SODIUM 50 MG/SENNA 8.6 MG TAB PO SCH ×2 (08:25→21:00)
[2017-08-28 11:43] LABS: INTERNATIONAL NORMALIZED RATIO 1.2 RATIO; PROTHROMBIN TIME - PATIENT 12.6 SEC (9.8-11.6)
[2017-08-28] MEDS: clonazePAM 1 MG TAB PO PRN (12:12)
[2017-08-28] MEDS: WARFARIN SOD 7.5 MG TAB PO SCH (15:35)
--- NOTE | 2017-08-28 16:27 | HHI.PR ---
Subjective Remarks Follow up subtherapeutic INR, dyspnea. Patient states that his dyspnea is improving. Denies chest pain. No other complaints at this time. Objective Vitals Vital Signs Date Time Temp Pulse Resp B/P (MAP) Pulse Ox O2 Delivery O2 Flow Rate FiO2 08/28/17 16:14 75 08/28/17 14:59 98.9 80 20 99/54 (69) 96 08/28/17 12:26 97.4 74 19 118/71 (87) 98 08/28/17 12:00 77 08/28/17 08:13 78 08/28/17 07:58 97.6 80 21 122/65 (84) 98 08/28/17 04:26 71 08/28/17 03:12 98.0 54 18 144/74 (97) 94 08/28/17 00:05 72 08/27/17 23:58 08/27/17 21:41 97.9 76 18 111/60 (77) 96 08/27/17 20:09 83 08/27/17 16:43 97.7 83 19 117/67 (84) 100 I/O 08/27/17 08/27/17 08/27/17 08/28/17 08/28/17 08/28/17 07:00 15:00 23:00 07:00 15:00 23:00 Intake Total 780 ml 840 ml 720 ml Output Total 2350 ml 950 ml 2200 ml Balance -1570 ml -110 ml -2200 ml 720 ml Intake Oral 780 ml 840 ml 720 ml Output Urine Total 2350 ml 950 ml 2200 ml # Voids 2 # Bowel Movements 1 0 Result Diagram: 08/25/17 0525 08/26/17 1049 Imaging Last Impressions Liver Ultrasound 08/26/17 0000 Signed Impressions: Service Date/Time: Saturday, August 26, 2017 16:28 - CONCLUSION: 1. Hepatomegaly without focal lesion. 2. Multiple calcifications in the gallbladder fossa adjacent to hemoclips. Kalyan Hayes MD CT Angiography 08/23/17 0000 Signed Impressions: Service Date/Time: Wednesday, August 23, 2017 02:27 - CONCLUSION: 1. Negative for pulmonary embolus. 2. Small bilateral pleural effusions. 3. Peribronchial thickening with mild distal airway disease at both lung bases. 4. Mild mediastinal adenopathy relatively stable over the last year. Jesus Henry MD Chest X-Ray 08/22/17 7106 Signed Impressions: Service Date/Time: Tuesday, August 22, 2017 23:59 - CONCLUSION: 1. Mild edema pattern. Trace pleural fluid. Findings are most characteristic of mild congestive heart failure. Jesus Henry MD Objective Remarks General: Elderly male in no acute distress. Heart: Regular rate and rhythm. No murmur. Lungs: Mild bibasilar crackles, slightly better today. Breathing is nonlabored. Abdomen: Soft, nontender, nondistended. Extremities: No lower extremity edema. Psych: Alert and oriented. 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 Acute exacerbation of chronic systolic congestive heart failure: Echo showed ejection fraction of 15%. Patient is status post AICD placement. Continue diuresis with IV Lasix. Appreciate cardiology recommendations. Dyspnea improving. 2. Chest pain: Patient continues to have intermittent substernal chest pain. Serial cardiac enzymes are negative. Appreciate cardiology recommendations. 3. 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 Continue Coumadin. Bridging with Lovenox. Patient states that he is unable to do Lovenox injections at home. 4. Diabetes mellitus: Monitor Accu-Cheks and cover with sliding scale insulin. Metformin on hold. Diabetic diet. 5. DVT prophylaxis: Lovenox, Coumadin. Discharge Planning Plan for discharge home soon, when cleared by Cardiology and when Lovenox can be discontinued. Problem Qualifiers (1) CHF (congestive heart failure): Qualified Codes: I50.9 - Heart failure, unspecified (2) Chest pain: Qualified Codes: R07.9 - Chest pain, unspecified Jalil Goodwin MD Aug 28, 2017 16:27
--- NOTE | 2017-08-28 17:18 | PD.CARD.PN ---
Subjective Subjective Remarks Breathing better overall Still diuresing well Objective Medications Current Medications Medications (Trade) Dose Ordered Sig/Keiko Route Start Time Stop Time Status Last Admin (NS Flush) 2 ml UNSCH PRN IVF 08/22/17 23:45 (D50w (Vial) Inj) 50 ml UNSCH PRN IV PUSH 08/23/17 04:00 (Glucagon Inj) 1 mg UNSCH PRN OTHER 08/23/17 04:00 (NovoLOG SUPPLEMENTAL SCALE) 1 ACHS SLIDING SCALE SQ 08/23/17 08:00 08/28/17 13:41 (NS Flush) 2 ml UNSCH PRN IV FLUSH 08/23/17 04:00 08/27/17 17:07 (NS Flush) 2 ml BID IV FLUSH 08/23/17 09:00 08/28/17 08:24 (Zofran Inj) 4 mg Q6H PRN IVP 08/23/17 04:00 (Tylenol) 650 mg Q6H PRN PO 08/23/17 04:00 ([place] 5-325 Mg) 1 tab Q4H PRN PO 08/23/17 04:00 ([place] 10-325 Mg) 1 tab Q4H PRN PO 08/23/17 04:00 08/27/17 21:57 (Mela-Colace) 1 tab BID PO 08/23/17 09:00 08/28/17 08:25 (Milk Of Magnesia Liq) 30 ml Q12H PRN PO 08/23/17 04:00 (Senokot) 17.2 mg Q12H PRN PO 08/23/17 04:00 (Dulcolax Supp) 10 mg DAILY PRN RECTAL 08/23/17 04:00 (Lactulose Liq) 30 ml DAILY PRN PO 08/23/17 04:00 (Coreg) 3.125 mg BID PO 08/23/17 09:00 08/28/17 08:24 (KlonoPIN) 1 mg Q8HR PRN PO 08/23/17 04:00 08/28/17 12:12 (Prinivil) 5 mg DAILY PO 08/23/17 09:00 08/28/17 08:24 (Aldactone) 25 mg DAILY PO 08/23/17 09:00 08/28/17 08:25 (Nitroglycerin 2% Oint) 0.5 inch Q6HR PRN TOPICAL 08/23/17 04:00 (Lovenox Inj) 70 mg Q12H SQ 08/23/17 06:00 08/28/17 05:27 (Lasix Inj) 40 mg BID@09,18 IV PUSH 08/24/17 09:00 08/28/17 08:25 (KCl) 20 meq TID PO 08/24/17 09:00 08/28/17 12:04 (Coumadin) 7.5 mg DAILY@1600 PO 08/27/17 16:00 08/28/17 15:35 Vital Signs / I&O Vital Signs Date Time Temp Pulse Resp B/P (MAP) Pulse Ox O2 Delivery O2 Flow Rate FiO2 08/28/17 16:14 75 08/28/17 14:59 98.9 80 20 99/54 (69) 96 08/28/17 12:26 97.4 74 19 118/71 (87) 98 08/28/17 12:00 77 08/28/17 08:13 78 08/28/17 07:58 97.6 80 21 122/65 (84) 98 08/28/17 04:26 71 08/28/17 03:12 98.0 54 18 144/74 (97) 94 08/28/17 00:05 72 08/27/17 23:58 08/27/17 21:41 97.9 76 18 111/60 (77) 96 08/27/17 20:09 83 I/O 08/27/17 08/27/17 08/27/17 08/28/17 08/28/17 08/28/17 06:59 14:59 22:59 06:59 14:59 22:59 Intake Total 780 ml 840 ml 720 ml Output Total 2350 ml 950 ml 2200 ml Balance -1570 ml -110 ml -2200 ml 720 ml Intake Oral 780 ml 840 ml 720 ml Output Urine Total 2350 ml 950 ml 2200 ml # Voids 2 # Bowel Movements 1 0 Physical Exam GENERAL: NAD, AAOx3 SKIN: Warm and dry. HEAD: Atraumatic. Normocephalic. EYES: Pupils equal and round. No scleral icterus. No injection or drainage. ENT: No nasal bleeding or discharge. Mucous membranes pink and moist. NECK: Trachea midline. No JVD. CARDIOVASCULAR: Regular rate and rhythm. RESPIRATORY: No accessory muscle use. Decreased breath sounds bilaterally GASTROINTESTINAL: Abdomen soft, non-tender, nondistended. Hepatic and splenic margins not palpable. MUSCULOSKELETAL: Extremities without clubbing, cyanosis, or edema. No obvious deformities. NEUROLOGICAL: Awake and alert. No obvious cranial nerve deficits. Motor grossly within normal limits. Five out of 5 muscle strength in the arms and legs. Normal speech. PSYCHIATRIC: Appropriate mood and affect; insight and judgment normal. Laboratory Laboratory Tests Test 08/28/17 11:17 Prothrombin Time 12.6 SEC Prothromb Time International Ratio 1.2 RATIO Assessment and Plan Problem List: (1) Acute on chronic systolic (congestive) heart failure ICD Codes: I50.23 - Acute on chronic systolic (congestive) heart failure (2) Chest pain ICD Codes: R07.9 - Chest pain, unspecified Status: Acute (3) Acute on chronic systolic CHF (congestive heart failure), NYHA class 3 ICD Codes: I50.23 - Acute on chronic systolic (congestive) heart failure (4) Non-ischemic cardiomyopathy ICD Codes: I42.8 - Other cardiomyopathies Status: Acute (5) Coronary artery disease ICD Codes: I25.10 - Atherosclerotic heart disease of telida coronary artery without angina pectoris (6) S/P ICD (internal cardiac defibrillator) procedure ICD Codes: Z95.810 - Presence of automatic (implantable) cardiac defibrillator Status: Acute Assessment and Plan 1) Cardiomyopathy EF 15% 2) Acute CHF Con't diuresis Plan to change to Torsemide 20mg daily on discharge Con't BB/JENNIFER-I/Spirolactone 3) INR subtherapeutic 4) Appears compensated, no further cardiovascular work up at this time Will plan to see PRN, Dr. Alberto will be available over the weekend if needed Problem Qualifiers (1) Chest pain: Qualified Codes: R07.9 - Chest pain, unspecified Maikel Beltran DO Aug 28, 2017 17:18
[2017-08-28] MEDS: SODIUM CHLORIDE 0.9% FLUSH 10 ML FLUSH IV FLUSH PRN (17:37)
[2017-08-28] MEDS ORDERED: FAMOTIDINE 20 MG TAB PO ONE (22:30)
[2017-08-28] MEDS ORDERED: ALUMINUM/MAGNESIUM/SIMETH 30 ML CUP PO ONE (22:30)
[2017-08-29] VITALS (13 sets, daily range): BP systolic 88–136; BP diastolic 50–74; PULSE 70–92; RESP 16–18; TEMP 97.6–98.4; O2SAT 95–98
[2017-08-29] MEDS: ENOXAPARIN SODIUM 80 MG/0.8 ML SYRINGE SQ SCH ×2 (05:28→17:32)
[2017-08-29 08:39] LABS: INTERNATIONAL NORMALIZED RATIO 1.4 RATIO
[2017-08-29] MEDS: DOCUSATE SODIUM 50 MG/SENNA 8.6 MG TAB PO SCH ×3 (09:00→21:54)
[2017-08-29 09:24] LABS: BICARBONATE 25.3 MEQ/L (21.0-32.0); CALCIUM 9.8 MG/DL (8.5-10.1); CREATININE 1.28 MG/DL (0.60-1.30)
[2017-08-29] MEDS: INSULIN ASPART SUPPLEMENTAL SCALE SQ SCH ×4 (10:08→21:55)
[2017-08-29] MEDS: SODIUM CHLORIDE 0.9% FLUSH 10 ML FLUSH IV FLUSH SCH ×2 (10:08→21:55)
[2017-08-29] MEDS: FUROSEMIDE 20 MG/2 ML VIAL IV PUSH SCH ×2 (10:13→17:31)
[2017-08-29] MEDS: CARVEDILOL 3.125 MG TAB PO SCH ×2 (10:15→21:54)
[2017-08-29] MEDS: LISINOPRIL 5 MG TAB PO SCH (10:15)
[2017-08-29] MEDS: POTASSIUM CHLORIDE 20 MEQ CONTROLLED RELEASE TAB PO SCH ×3 (10:15→17:32)
[2017-08-29] MEDS: SPIRONOLACTONE 25 MG TAB PO SCH (10:16)
[2017-08-29] MEDS: clonazePAM 1 MG TAB PO PRN (10:54)
--- NOTE | 2017-08-29 11:30 | HHI.PR ---
Subjective Remarks Follow up subtherapeutic INR, dyspnea. Patient states that his breathing is improving. No chest pain. Objective Vitals Vital Signs Date Time Temp Pulse Resp B/P (MAP) Pulse Ox O2 Delivery O2 Flow Rate FiO2 08/29/17 10:06 108/74 (85) 08/29/17 09:12 98.1 86 16 136/73 (94) 98 Manual Cuff/Auscultation 08/29/17 04:36 74 08/29/17 03:45 98.0 70 17 108/53 (71) 97 08/29/17 03:06 70 18 97 08/29/17 03:03 88/56 (67) 08/29/17 03:02 90/50 (63) 08/29/17 00:30 78 08/28/17 23:33 102/70 (81) 08/28/17 22:58 98.0 73 18 113/55 (74) 96 08/28/17 20:09 83 08/28/17 19:46 92/64 (73) 08/28/17 19:33 98.1 76 18 83/46 (58) 96 08/28/17 16:14 75 08/28/17 14:59 98.9 80 20 99/54 (69) 96 08/28/17 12:26 97.4 74 19 118/71 (87) 98 08/28/17 12:00 77 I/O 08/28/17 08/28/17 08/28/17 08/29/17 08/29/17 08/29/17 07:00 15:00 23:00 07:00 15:00 23:00 Intake Total 840 ml 720 ml 800 ml 480 ml Output Total 950 ml 2200 ml 1400 ml Balance -110 ml -2200 ml -680 ml 800 ml 480 ml Intake Oral 840 ml 720 ml 800 ml 480 ml Output Urine Total 950 ml 2200 ml 1400 ml # Voids 5 # Bowel Movements 0 0 Result Diagram: 08/25/17 0525 08/29/17 0750 Imaging Last Impressions Liver Ultrasound 08/26/17 0000 Signed Impressions: Service Date/Time: Saturday, August 26, 2017 16:28 - CONCLUSION: 1. Hepatomegaly without focal lesion. 2. Multiple calcifications in the gallbladder fossa adjacent to hemoclips. Kalyan Hayes MD CT Angiography 08/23/17 0000 Signed Impressions: Service Date/Time: Wednesday, August 23, 2017 02:27 - CONCLUSION: 1. Negative for pulmonary embolus. 2. Small bilateral pleural effusions. 3. Peribronchial thickening with mild distal airway disease at both lung bases. 4. Mild mediastinal adenopathy relatively stable over the last year. Jesus Henry MD Chest X-Ray 08/22/17 2344 Signed Impressions: Service Date/Time: Tuesday, August 22, 2017 23:59 - CONCLUSION: 1. Mild edema pattern. Trace pleural fluid. Findings are most characteristic of mild congestive heart failure. Jesus Henry MD Objective Remarks General: Elderly male in no acute distress. Heart: Regular rate and rhythm. No murmur. Lungs: Mild bibasilar crackles. Breathing is nonlabored. Abdomen: Soft, nontender, nondistended. Extremities: No lower extremity edema. Psych: Alert and oriented. 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 Continue coumadin. Dyspnea improving. 1. Acute exacerbation of chronic systolic congestive heart failure: Echo showed ejection fraction of 15%. Patient is status post AICD placement. Continue diuresis with IV Lasix. Appreciate cardiology recommendations. Dyspnea improving. 2. Chest pain: Patient continues to have intermittent substernal chest pain. Serial cardiac enzymes are negative. Appreciate cardiology recommendations. 3. 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 Continue Coumadin. Bridging with Lovenox. Patient states that he is unable to do Lovenox injections at home. 4. Diabetes mellitus: Monitor Accu-Cheks and cover with sliding scale insulin. Metformin on hold. Diabetic diet. 5. DVT prophylaxis: Lovenox, Coumadin. Discharge Planning Plan for discharge home soon, when cleared by Cardiology and when Lovenox can be discontinued. Problem Qualifiers (1) CHF (congestive heart failure): Qualified Codes: I50.9 - Heart failure, unspecified (2) Chest pain: Qualified Codes: R07.9 - Chest pain, unspecified Jalil Goodwin MD Aug 29, 2017 11:30
[2017-08-29] MEDS: WARFARIN SOD 7.5 MG TAB PO SCH (14:17)
[2017-08-29] MEDS: ACETAMINOPHEN/HYDROcodone 325 MG/10 MG TAB PO PRN (17:31)
[2017-08-30] VITALS: BP 93/48; PULSE 62; RESP 17; TEMP 98.3; O2SAT 97
[2017-08-30] MEDS: ACETAMINOPHEN/HYDROcodone 325 MG/10 MG TAB PO PRN ×2 (00:49→21:43)
[2017-08-30 04:00] VITALS: BP 98/54; PULSE 76; RESP 16; TEMP 97.8; O2SAT 97
[2017-08-30 04:08] VITALS: PULSE 72
[2017-08-30] MEDS: ENOXAPARIN SODIUM 80 MG/0.8 ML SYRINGE SQ SCH ×2 (05:10→17:21)
[2017-08-30 06:12] LABS: INTERNATIONAL NORMALIZED RATIO 1.5 RATIO; PROTHROMBIN TIME - PATIENT 15.5 SEC (9.8-11.6)
[2017-08-30 06:16] LABS: ALBUMIN 3.4 GM/DL (3.4-5.0); ALT (GPT) 41 U/L (12-78); AST (GOT) 22 U/L (15-37); BICARBONATE 25.4 MEQ/L (21.0-32.0); BLOOD UREA NITROGEN 42 MG/DL (7-18); CALCIUM 9.2 MG/DL (8.5-10.1); CHLORIDE 97 MEQ/L (98-107); CREATININE 1.26 MG/DL (0.60-1.30); GLOMERULAR FILTRATION RATE 57 ML/MIN (>89); GLUCOSE,RANDOM 189 MG/DL (74-106); SODIUM (NA) 130 MEQ/L (136-145)
[2017-08-30 06:19] LABS: ALKALINE PHOSPHATASE 196 U/L (45-117); TOTAL BILIRUBIN ADULT 0.3 MG/DL (0.2-1.0); TOTAL PROTEIN 7.8 GM/DL (6.4-8.2)
[2017-08-30] MEDS: SPIRONOLACTONE 25 MG TAB PO SCH (08:14)
[2017-08-30] MEDS: FUROSEMIDE 20 MG/2 ML VIAL IV PUSH SCH ×2 (08:14→17:20)
[2017-08-30] MEDS: POTASSIUM CHLORIDE 20 MEQ CONTROLLED RELEASE TAB PO SCH ×3 (08:15→17:21)
[2017-08-30] MEDS: CARVEDILOL 3.125 MG TAB PO SCH ×2 (08:15→21:42)
[2017-08-30] MEDS: clonazePAM 1 MG TAB PO PRN ×2 (08:15→21:43)
[2017-08-30] MEDS: DOCUSATE SODIUM 50 MG/SENNA 8.6 MG TAB PO SCH ×2 (08:16→21:00)
[2017-08-30] MEDS: LISINOPRIL 5 MG TAB PO SCH (08:16)
[2017-08-30] MEDS: SODIUM CHLORIDE 0.9% FLUSH 10 ML FLUSH IV FLUSH SCH ×2 (08:16→21:44)
[2017-08-30] MEDS: INSULIN ASPART SUPPLEMENTAL SCALE SQ SCH ×4 (08:57→21:44)
[2017-08-30 09:45] VITALS: BP 128/75; PULSE 77; RESP 18; TEMP 96; O2SAT 97
--- NOTE | 2017-08-30 11:06 | HHI.PR ---
Subjective Remarks Follow up for subtherapeutic INR. Patient seen ambulating the halls this morning. He denies any significant shortness of breath. Denies any chest pains or palpitations. He wants to go home. He has no other medical complaints at this time. Objective Vitals Vital Signs Date Time Temp Pulse Resp B/P (MAP) Pulse Ox O2 Delivery O2 Flow Rate FiO2 08/30/17 09:45 96.0 77 18 128/75 (92) 97 08/30/17 04:08 72 08/30/17 04:00 97.8 76 16 98/54 (69) 97 08/30/17 00:00 98.3 62 17 93/48 (63) 97 08/29/17 20:00 97.7 92 18 133/65 (87) 97 08/29/17 16:04 97.6 82 18 119/65 (83) 95 08/29/17 15:00 80 08/29/17 11:45 98.4 83 16 98/54 (69) 96 Manual Cuff/Auscultation I/O 08/29/17 08/29/17 08/29/17 08/30/17 08/30/17 08/30/17 07:00 15:00 23:00 07:00 15:00 23:00 Intake Total 800 ml 880 ml 720 ml Output Total 1450 ml 650 ml 1200 ml 350 ml Balance 800 ml -570 ml 70 ml -1200 ml -350 ml Intake Oral 800 ml 880 ml 720 ml Output Urine Total 1450 ml 650 ml 1200 ml 350 ml # Voids 5 3 1 # Bowel Movements 0 Result Diagram: 08/30/17 0423 Imaging Last Impressions Liver Ultrasound 08/26/17 0000 Signed Impressions: Service Date/Time: Saturday, August 26, 2017 16:28 - CONCLUSION: 1. Hepatomegaly without focal lesion. 2. Multiple calcifications in the gallbladder fossa adjacent to hemoclips. Kalyan Hayes MD CT Angiography 08/23/17 0000 Signed Impressions: Service Date/Time: Wednesday, August 23, 2017 02:27 - CONCLUSION: 1. Negative for pulmonary embolus. 2. Small bilateral pleural effusions. 3. Peribronchial thickening with mild distal airway disease at both lung bases. 4. Mild mediastinal adenopathy relatively stable over the last year. Jesus Henry MD Chest X-Ray 08/22/17 9509 Signed Impressions: Service Date/Time: Tuesday, August 22, 2017 23:59 - CONCLUSION: 1. Mild edema pattern. Trace pleural fluid. Findings are most characteristic of mild congestive heart failure. Jesus Henry MD Objective Remarks GENERAL: Well-nourished, well-developed thin male patient in [facility]. SKIN: Warm and dry. No rash. HEENT: Normocephalic. Atraumatic.Pupils equal and round. Mucous membranes pink and moist. CARDIOVASCULAR: Regular rate and rhythm. No murmur appreciated. RESPIRATORY: No accessory muscle use. Clear to auscultation. Breath sounds equal bilaterally. GASTROINTESTINAL: Abdomen soft, non-tender, nondistended. Normoactive bowel sounds x4. MUSCULOSKELETAL: No obvious deformities. Extremities without clubbing, cyanosis , or edema. NEUROLOGICAL: Awake and alert. No obvious cranial nerve deficits. Motor grossly within normal limits. Normal speech. PSYCHIATRIC: Appropriate mood and affect; insight and judgment normal. Procedures None Medications and IVs Current Medications Medications (Trade) Dose Ordered Sig/Keiko Route Start Time Stop Time Status Last Admin (D50w (Vial) Inj) 50 ml UNSCH PRN IV PUSH 08/23/17 04:00 (Glucagon Inj) 1 mg UNSCH PRN OTHER 08/23/17 04:00 (NovoLOG SUPPLEMENTAL SCALE) 1 ACHS SLIDING SCALE SQ 08/23/17 08:00 08/30/17 08:57 (NS Flush) 2 ml UNSCH PRN IV FLUSH 08/23/17 04:00 08/28/17 17:37 (NS Flush) 2 ml BID IV FLUSH 08/23/17 09:00 08/30/17 08:16 (Zofran Inj) 4 mg Q6H PRN IVP 08/23/17 04:00 (Tylenol) 650 mg Q6H PRN PO 08/23/17 04:00 ([place] 5-325 Mg) 1 tab Q4H PRN PO 08/23/17 04:00 ([place] 10-325 Mg) 1 tab Q4H PRN PO 08/23/17 04:00 08/30/17 00:49 (Mela-Colace) 1 tab BID PO 08/23/17 09:00 08/28/17 08:25 (Milk Of Magnesia Liq) 30 ml Q12H PRN PO 08/23/17 04:00 (Senokot) 17.2 mg Q12H PRN PO 08/23/17 04:00 (Dulcolax Supp) 10 mg DAILY PRN RECTAL 08/23/17 04:00 (Lactulose Liq) 30 ml DAILY PRN PO 08/23/17 04:00 (Coreg) 3.125 mg BID PO 08/23/17 09:00 08/30/17 08:15 (KlonoPIN) 1 mg Q8HR PRN PO 08/23/17 04:00 08/30/17 08:15 (Prinivil) 5 mg DAILY PO 08/23/17 09:00 08/30/17 08:16 (Aldactone) 25 mg DAILY PO 08/23/17 09:00 08/30/17 08:14 (Nitroglycerin 2% Oint) 0.5 inch Q6HR PRN TOPICAL 08/23/17 04:00 (Lovenox Inj) 70 mg Q12H SQ 08/23/17 06:00 08/30/17 05:10 (Lasix Inj) 40 mg BID@18 IV PUSH 08/24/17 09:00 08/30/17 08:14 (KCl) 20 meq TID PO 08/24/17 09:00 08/30/17 08:15 (Coumadin) 10 mg DAILY@16 PO 08/30/17 16:00 A/P Problem List: (1) CHF (congestive heart failure) ICD Code: I50.9 - Heart failure, unspecified Status: Chronic (2) Chest pain ICD Code: R07.9 - Chest pain, unspecified Status: Acute (3) Anticoagulated on Coumadin ICD Code: Z51.81 - Encounter for therapeutic drug level monitoring; 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 Patient is status post AICD placement. Continue diuresis with IV Lasix. Appreciate cardiology recommendations. Dyspnea improving. O2 sat stable on room air. Cardiology recommended to transition diuresis to torsemide 20mg daily upon discharge. Chest pain: Patient continues to have intermittent substernal chest pain. Serial cardiac enzymes are negative. Appreciate cardiology recommendations. 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 Continue Coumadin. Bridging with Lovenox. Patient states that he is unable to do Lovenox injections at home. INR still subtherapeutic today on 1.5, increased coumadin to 10mg. Diabetes mellitus: Monitor Accu-Cheks and cover with sliding scale insulin. Metformin on hold. Diabetic diet. Heartburn/Dyspepsia: patient reporting heartburn today. Will start on Pepcid bid. Tums prn. DVT prophylaxis: Lovenox, Coumadin. Discharge Planning Plan to discharge when INR therapeutic. Problem Qualifiers (1) CHF (congestive heart failure): Qualified Codes: I50.9 - Heart failure, unspecified (2) Chest pain: Qualified Codes: R07.9 - Chest pain, unspecified Krystal Arteaga PA-C Aug 30, 2017 11:06
[2017-08-30] MEDS ORDERED: CALCIUM CARBONATE 500 MG CHEWABLE TAB CHEW PRN (15:00)
[2017-08-30] MEDS: WARFARIN SOD 10 MG TAB PO SCH (17:14)
[2017-08-30] MEDS: FAMOTIDINE 20 MG TAB PO SCH ×2 (17:14→21:42)
[2017-08-30 20:32] VITALS: BP 113/68; PULSE 82; RESP 18; TEMP 98.3; O2SAT 98
[2017-08-30 23:40] VITALS: BP 118/67; PULSE 83; RESP 18; TEMP 98.3; O2SAT 99
[2017-08-31] VITALS (7 sets, daily range): BP systolic 102–128; BP diastolic 59–69; PULSE 69–87; RESP 18; TEMP 97.3–98.2; O2SAT 95–99
[2017-08-31 05:05] LABS: INTERNATIONAL NORMALIZED RATIO 1.6 RATIO; PROTHROMBIN TIME - PATIENT 15.7 SEC (9.8-11.6)
[2017-08-31] MEDS: ENOXAPARIN SODIUM 80 MG/0.8 ML SYRINGE SQ SCH ×2 (05:46→18:19)
[2017-08-31] MEDS: INSULIN ASPART SUPPLEMENTAL SCALE SQ SCH ×4 (08:00→22:55)
[2017-08-31] MEDS: DOCUSATE SODIUM 50 MG/SENNA 8.6 MG TAB PO SCH ×2 (09:00→22:37)
[2017-08-31] MEDS: SODIUM CHLORIDE 0.9% FLUSH 10 ML FLUSH IV FLUSH SCH ×2 (09:14→22:35)
[2017-08-31] MEDS: SPIRONOLACTONE 25 MG TAB PO SCH (09:15)
[2017-08-31] MEDS: FUROSEMIDE 20 MG/2 ML VIAL IV PUSH SCH ×2 (09:15→18:18)
[2017-08-31] MEDS: POTASSIUM CHLORIDE 20 MEQ CONTROLLED RELEASE TAB PO SCH ×3 (09:16→18:18)
[2017-08-31] MEDS: CARVEDILOL 3.125 MG TAB PO SCH ×2 (09:17→21:00)
[2017-08-31] MEDS: LISINOPRIL 5 MG TAB PO SCH (09:17)
[2017-08-31] MEDS: FAMOTIDINE 20 MG TAB PO SCH ×2 (09:17→22:36)
--- NOTE | 2017-08-31 09:36 | HHI.PR ---
Subjective Remarks Follow up for CHF exacerbation, subtherapeutic INR. The patient has no acute medical complaints today. He states his breathing continues to improve. He is able to ambulate the hallway without difficulty. He states he has been on Coumadin for over 20 years. He states prior to coming to the hospital, he did not miss any doses or run out of medications. He states his INR is not checked regularly, occasionally PCP Dr. Joseph will follow the INR. He denies any recent changes in his diet. He states he was on Coumadin 5mg for many years, now recently on 7mg daily. Objective Vitals Vital Signs Date Time Temp Pulse Resp B/P (MAP) Pulse Ox O2 Delivery O2 Flow Rate FiO2 08/31/17 08:37 97.6 75 18 123/61 (81) 08/31/17 03:32 98.2 86 18 116/69 (85) 99 08/31/17 02:40 69 08/31/17 00:00 79 08/30/17 23:40 98.3 83 18 118/67 (84) 99 08/30/17 20:32 98.3 82 18 113/68 (83) 98 08/30/17 09:45 96.0 77 18 128/75 (92) 97 I/O 08/30/17 08/30/17 08/30/17 08/31/17 08/31/17 08/31/17 07:00 15:00 23:00 07:00 15:00 23:00 Output Total 1200 ml 350 ml 600 ml 250 ml Balance -1200 ml -350 ml -600 ml -250 ml Output Urine Total 1200 ml 350 ml 600 ml 250 ml # Voids 1 Result Diagram: 08/30/17 0423 Imaging Last Impressions Liver Ultrasound 08/26/17 0000 Signed Impressions: Service Date/Time: Saturday, August 26, 2017 16:28 - CONCLUSION: 1. Hepatomegaly without focal lesion. 2. Multiple calcifications in the gallbladder fossa adjacent to hemoclips. Kalyan Hayes MD CT Angiography 08/23/17 0000 Signed Impressions: Service Date/Time: Wednesday, August 23, 2017 02:27 - CONCLUSION: 1. Negative for pulmonary embolus. 2. Small bilateral pleural effusions. 3. Peribronchial thickening with mild distal airway disease at both lung bases. 4. Mild mediastinal adenopathy relatively stable over the last year. Jesus Henry MD Chest X-Ray 08/22/17 0144 Signed Impressions: Service Date/Time: Tuesday, August 22, 2017 23:59 - CONCLUSION: 1. Mild edema pattern. Trace pleural fluid. Findings are most characteristic of mild congestive heart failure. Jesus Henry MD Objective Remarks GENERAL: Well-nourished, well-developed thin male patient in [facility]. SKIN: Warm and dry. No rash. HEENT: Normocephalic. Atraumatic.Pupils equal and round. Mucous membranes pink and moist. CARDIOVASCULAR: Regular rate and rhythm. No murmur appreciated. RESPIRATORY: No accessory muscle use. Clear to auscultation. Breath sounds equal bilaterally. GASTROINTESTINAL: Abdomen soft, non-tender, nondistended. Normoactive bowel sounds x4. MUSCULOSKELETAL: No obvious deformities. Extremities without clubbing, cyanosis , or edema. NEUROLOGICAL: Awake and alert. No obvious cranial nerve deficits. Motor grossly within normal limits. Normal speech. PSYCHIATRIC: Appropriate mood and affect; insight and judgment normal. Procedures None Medications and IVs Current Medications Medications (Trade) Dose Ordered Sig/Keiko Route Start Time Stop Time Status Last Admin (D50w (Vial) Inj) 50 ml UNSCH PRN IV PUSH 08/23/17 04:00 (Glucagon Inj) 1 mg UNSCH PRN OTHER 08/23/17 04:00 (NovoLOG SUPPLEMENTAL SCALE) 1 ACHS SLIDING SCALE SQ 08/23/17 08:00 08/31/17 08:00 (NS Flush) 2 ml UNSCH PRN IV FLUSH 08/23/17 04:00 08/28/17 17:37 (NS Flush) 2 ml BID IV FLUSH 08/23/17 09:00 08/31/17 09:14 (Zofran Inj) 4 mg Q6H PRN IVP 08/23/17 04:00 (Tylenol) 650 mg Q6H PRN PO 08/23/17 04:00 (Colton 5-325 Mg) 1 tab Q4H PRN PO 08/23/17 04:00 (Colton 10-325 Mg) 1 tab Q4H PRN PO 08/23/17 04:00 08/30/17 21:43 (Mela-Colace) 1 tab BID PO 08/23/17 09:00 08/28/17 08:25 (Milk Of Magnesia Liq) 30 ml Q12H PRN PO 08/23/17 04:00 (Senokot) 17.2 mg Q12H PRN PO 08/23/17 04:00 (Dulcolax Supp) 10 mg DAILY PRN RECTAL 08/23/17 04:00 (Lactulose Liq) 30 ml DAILY PRN PO 08/23/17 04:00 (Coreg) 3.125 mg BID PO 08/23/17 09:00 08/31/17 09:17 (KlonoPIN) 1 mg Q8HR PRN PO 08/23/17 04:00 08/30/17 21:43 (Prinivil) 5 mg DAILY PO 08/23/17 09:00 08/31/17 09:17 (Aldactone) 25 mg DAILY PO 08/23/17 09:00 08/31/17 09:15 (Nitroglycerin 2% Oint) 0.5 inch Q6HR PRN TOPICAL 08/23/17 04:00 (Lovenox Inj) 70 mg Q12H SQ 08/23/17 06:00 08/31/17 05:46 (Lasix Inj) 40 mg BID@,18 IV PUSH 08/24/17 09:00 08/31/17 09:15 (KCl) 20 meq TID PO 08/24/17 09:00 08/31/17 09:16 (Coumadin) 10 mg DAILY@16 PO 08/30/17 16:00 08/30/17 17:14 (Tums Chew) 500 mg Q6H PRN CHEW 08/30/17 15:00 (Pepcid) 20 mg BID PO 08/30/17 15:00 08/31/17 09:17 A/P Problem List: (1) CHF (congestive heart failure) ICD Code: I50.9 - Heart failure, unspecified Status: Chronic (2) Chest pain ICD Code: R07.9 - Chest pain, unspecified Status: Acute (3) Anticoagulated on Coumadin ICD Code: Z51.81 - Encounter for therapeutic drug level monitoring; 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 S/p AICD placement. Continue diuresis with IV Lasix 40mg bid. Appreciate cardiology recommendations. Dyspnea much improved , patient ambulating the hallway without difficulty. O2 sat stable on room air. Cardiology recommended to transition diuresis to torsemide 20mg daily, will start tomorrow am. Chest pain: Patient continues to have intermittent substernal chest pain. Serial cardiac enzymes are negative. Appreciate cardiology recommendations, no further work up. Chest pain much improved. 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 Continue Coumadin. Bridging with Lovenox. Patient states that he is unable to do Lovenox injections at home. INR still subtherapeutic today on 1.6, continue on increased dose of coumadin 10mg. Check daily INR. Diabetes mellitus: Monitor Accu-Cheks and cover with sliding scale insulin. Metformin on hold. Diabetic diet. Heartburn/Dyspepsia: patient reporting occasional heartburn. Started on Pepcid bid. Tums prn. DVT prophylaxis: Lovenox, Coumadin. Discharge Planning Plan to discharge when INR therapeutic (or close to therapeutic). Will need prescription for torsemide 20mg daily at discharge. Problem Qualifiers (1) CHF (congestive heart failure): Qualified Codes: I50.9 - Heart failure, unspecified (2) Chest pain: Qualified Codes: R07.9 - Chest pain, unspecified Krystal Arteaga PA-C Aug 31, 2017 9:36 am
[2017-08-31] MEDS: clonazePAM 1 MG TAB PO PRN ×2 (13:30→22:40)
[2017-08-31] MEDS: WARFARIN SOD 10 MG TAB PO SCH (18:18)
[2017-09-01] VITALS (7 sets, daily range): BP systolic 105–128; BP diastolic 50–78; PULSE 68–81; RESP 14–18; TEMP 97.8–98.8; O2SAT 68–99
[2017-09-01 05:08] LABS: INTERNATIONAL NORMALIZED RATIO 1.9 RATIO; PROTHROMBIN TIME - PATIENT 19.4 SEC (9.8-11.6)
[2017-09-01] MEDS: ENOXAPARIN SODIUM 80 MG/0.8 ML SYRINGE SQ SCH (06:13)
[2017-09-01] MEDS ORDERED: TORSEMIDE 20 MG TAB PO SCH (09:00)
[2017-09-01] MEDS: SODIUM CHLORIDE 0.9% FLUSH 10 ML FLUSH IV FLUSH SCH (09:27)
[2017-09-01] MEDS: INSULIN ASPART SUPPLEMENTAL SCALE SQ SCH (09:27)
[2017-09-01] MEDS: POTASSIUM CHLORIDE 20 MEQ CONTROLLED RELEASE TAB PO SCH (09:28)
[2017-09-01] MEDS: FAMOTIDINE 20 MG TAB PO SCH (09:28)
[2017-09-01] MEDS: SPIRONOLACTONE 25 MG TAB PO SCH (09:28)
[2017-09-01] MEDS: LISINOPRIL 5 MG TAB PO SCH (09:28)
[2017-09-01] MEDS: DOCUSATE SODIUM 50 MG/SENNA 8.6 MG TAB PO SCH (09:28)
[2017-09-01] MEDS: CARVEDILOL 3.125 MG TAB PO SCH (09:28)
[2017-09-01] MEDS ORDERED: WARF-22 PO (09:40)
[2017-09-01] MEDS ORDERED: TORS1TAB12 PO (09:40)
--- NOTE | 2017-09-01 09:42 | HHI.DCPOC ---
Discharge Care Plan Diagnosis: (1) Acute on chronic systolic CHF (congestive heart failure), NYHA class 3 (2) Anticoagulated on Coumadin (3) Chest pain, rule out acute myocardial infarction (4) DM2 (diabetes mellitus, type 2) (5) HTN (hypertension) Goals to Promote Your Health * To prevent worsening of your condition and complications * To maintain your health at the optimal level Directions to Meet Your Goals Take your medications as prescribed Follow your dietary instruction Follow activity as directed Keep your appointments as scheduled Take your immunizations and boosters as scheduled If your symptoms worsen call your PCP, if no PCP go to Urgent Care Center or Emergency Room Smoking is Dangerous to Your Health. Avoid second hand smoke Call the 24-hour hour crisis hotline for domestic abuse at Pio Marcelino MD Sep 01, 2017 09:42
--- NOTE | 2017-09-01 09:43 | HHI.DS ---
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 States symptoms had gotten progressively worse throughout the day and decided to come in. Recent admit 07/17-07/24/17 for similar complaints, admitted for CHF Exacerbation and chest pain, s/p diuresis w/ negative serial troponin. Reports substernal chest pain, constant, severe, 6/10, non-radiating, s/p NTG w / improvement, currently chest pain free. On arrival, BP 145/94, HR 101, O2 sat 98% on 2L NC, Afebrile. CBC essentially unremarkable. Chemistry unremarkable. Troponin 0.02, repeat troponin 0.03. BNP 3206. INR 1.4. D- dimer 1.64. CXR with mild edema trace pleural fluid, characteristic of mild congestive heart failure. CTA Pulm negative for PE, small bilateral pleural effusions, peribronchial thickening. S/p Lasix 40mg IV in ER. Follows w/ Dr. Henry as outpatient, [facility] has upcoming appt. CBC/BMP: 08/30/17 0423 Significant Findings Laboratory Tests Test 08/30/17 04:23 08/31/17 04:14 09/01/17 04:37 Prothrombin Time 15.5 SEC (9.8-11.6) 15.7 SEC (9.8-11.6) 19.4 SEC (9.8-11.6) Blood Urea Nitrogen 42 MG/DL (7-18) Random Glucose 189 MG/DL (74-106) Alkaline Phosphatase 196 U/L (45-117) Sodium Level 130 MEQ/L (136-145) Chloride Level 97 MEQ/L (98-107) Estimat Glomerular Filtration Rate 57 ML/MIN (>89) PE at Discharge GENERAL: Well-nourished, well-developed thin male patient in [facility]. SKIN: Warm and dry. No rash. HEENT: Normocephalic. Atraumatic.Pupils equal and round. Mucous membranes pink and moist. CARDIOVASCULAR: Regular rate and rhythm. No murmur appreciated. RESPIRATORY: No accessory muscle use. Clear to auscultation. Breath sounds equal bilaterally. GASTROINTESTINAL: Abdomen soft, non-tender, nondistended. Normoactive bowel sounds x4. MUSCULOSKELETAL: No obvious deformities. Extremities without clubbing, cyanosis , or edema. NEUROLOGICAL: Awake and alert. No obvious cranial nerve deficits. Motor grossly within normal limits. Normal speech. PSYCHIATRIC: Appropriate mood and affect; insight and judgment normal. Pt update on day of discharge Patient reports he is feeling well. He denies chest pain or shortness of breath. He states it is inconvenient for him to get his lab work but states he get it done and have his PCP follow INR. Hospital Course 72-year-old male with admitted and treated for the following: Acute exacerbation of chronic systolic congestive heart failure: Echo 11/01/16 showed ejection fraction of 15%. S/p AICD placement. Continue diuresis with IV Lasix 40mg bid. Appreciate cardiology recommendations. Dyspnea much improved , patient ambulating the hallway without difficulty. O2 sat stable on room air. Cardiology recommended to transition diuresis to torsemide 20mg daily. Patient was transitioned to oral diuretics and discharged on the same. He is advised to follow-up outpatient with PCP and cardiology. Chest pain: Patient continues to have intermittent substernal chest pain. Serial cardiac enzymes are negative. Appreciate cardiology recommendations, no further work up. Chest pain resolved. 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 Continue Coumadin. Patient was bridged with Lovenox to Coumadin. INR on discharge was 1.9. There is question about his compliance. He is advised to have INR rechecked in 2 days since he just had an increased of the dose. Diabetes mellitus: Resume home dose metformin. Heartburn/Dyspepsia: patient reporting occasional heartburn. Was treated with Tums prn. Pt Condition on Discharge: Good Discharge Disposition: Discharge Home Discharge Time: <= 30 minutes Discharge Instructions DIET: Follow Instructions for: Heart Healthy Diet, Coumadin (Warfarin) Diet Activities you can perform: Regular-No Restrictions Follow up Referrals: PCP Follow-up - 3-5 Days with Kwesi Joseph MD New Medications: Torsemide (Demadex) 20 Mg Tab 20 MG PO DAILY, #30 TAB Changed Medications: Warfarin (Warfarin) 10 Mg Tab 10 MG PO DAILY for Blood Clot Prevention, #30 TAB 0 Refills (Changed from: Warfarin 6 Mg Tab 5 Mg PO DAILY Blood Clot Prevention #12 TAB Ref 0) Continued Medications: Carvedilol (Carvedilol) 3.125 Mg Tab 3.125 MG PO BID for 12 Days, #24 TAB 0 Refills Clonazepam (Klonopin) 1 Mg Tab 1 MG PO Q8HR PRN for MODERATE TO SEVERE ANXIETY, #30 TAB Lisinopril (Lisinopril) 5 Mg Tab 5 MG PO DAILY for CHF, #12 TAB Metformin (Metformin) 500 Mg Tab 500 MG PO DAILY for Blood Sugar Management, #12 TAB 0 Refills With a meal Spironolactone (Aldactone) 25 Mg Tab 25 MG PO DAILY for CHF, #12 TAB Discontinued Medications: Furosemide (Lasix) 20 Mg Tab 20 MG PO DAILY for CHF, #12 TAB 0 Refills Hydrocodone-Acetaminophen (Donovan) 10-325 Mg Tab 1 TAB PO Q8HR PRN for PAIN, #20 TAB 0 Refills Pio Marcelino MD Sep 01, 2017 09:43
== END 2017-09-01 11:04 | disposition home or self-care (01) ==
LOC: NEPC 23:19 → NEDA 08-23 04:32 → NEPFCDU 08-23 05:32
PROVIDERS: ADMIT Family Medicine; ATTEND Family Medicine
DX: I11.0 Hypertensive heart disease with heart failure (principal); I50.23 Acute on chronic systolic (congestive) heart failure; R07.9 Chest pain, unspecified; I44.4 Left anterior fascicular block; R94.31 Abnormal electrocardiogram [ECG] [EKG]; R16.0 Hepatomegaly, not elsewhere classified; J90 Pleural effusion, not elsewhere classified; R59.0 Localized enlarged lymph nodes; R10.13 Epigastric pain; R12 Heartburn; I25.10 Atherosclerotic heart disease of native coronary artery without angina pectoris; I42.8 Other cardiomyopathies; I25.2 Old myocardial infarction; E78.00 Pure hypercholesterolemia, unspecified; E11.51 Type 2 diabetes mellitus with diabetic peripheral angiopathy without gangrene; E03.9 Hypothyroidism, unspecified; F41.9 Anxiety disorder, unspecified; Z79.01 Long term (current) use of anticoagulants; Z86.711 Personal history of pulmonary embolism; Z95.810 Presence of automatic (implantable) cardiac defibrillator; Z79.899 Other long term (current) drug therapy
CPT/HCPCS: 71045; 71275; 76705; 80048; 80053; 80074; 82550; 82948; 83735; 83880; 84484; 85025; 85379; 85610; 85730; 87804; 93005; 96365; 96367; 96372; 96374; 96375; 96376; 99285; G0378; J1650; J1815; J1940; J2543; J3370; J7050; Q9967